=== PATIENT | female | born 1975 ===

== ENCOUNTER → 2020-02-11 09:24 | Outpatient (BNVA) | payer OTHER, SELFPAY | PROVIDERS: PCP Family Medicine; Referring Provider Family Medicine; Visit Provider Nurse Practitioner | DX: K21.9 Gastro-esophageal reflux disease without esophagitis (principal); K31.84 Gastroparesis; K58.0 Irritable bowel syndrome with diarrhea; Z79.899 Other long term (current) drug therapy | CPT/HCPCS: 99212 ==

== ENCOUNTER → 2020-03-02 14:11 | Outpatient (BNVA) | payer OTHER, SELFPAY | PROVIDERS: PCP Family Medicine; Visit Provider Internal Medicine | DX: G47.33 Obstructive sleep apnea (adult) (pediatric) (principal); E66.01 Morbid (severe) obesity due to excess calories; Z68.43 Body mass index [BMI] 50.0-59.9, adult; J30.9 Allergic rhinitis, unspecified; J98.4 Other disorders of lung; Z79.899 Other long term (current) drug therapy; Z99.89 Dependence on other enabling machines and devices | CPT/HCPCS: 99212 ==

== ENCOUNTER 2020-03-12 23:13 | Emergency (ER) | payer OTHER, SELFPAY ==
[2020-03-12 23:17] VITALS: BP 160/92; BP 162/98; PULSE 100; PULSE 85; RESP 20; TEMP 35.9; O2SAT 94; O2SAT 99; BMI 58.3
--- NOTE | 2020-03-13 00:18 | ED_ITS ---
HPI - Headache General Chief Complaint: Headache Stated Complaint: HEAD PAIN Time Seen by Provider: 03/13/20 00:05 Source: patient Mode of arrival: EMS Limitations: no limitations History of Present Illness HPI Narrative: patient comes to emergency room complaining of a headache. Patient states this started around 15:00. Patient has tried tendon all, she has not tried ibuprofen yet, states usually either 1 of them works for her but today she has had no relief from avad-css-ibjgoft medications. Patient also has a prescription for tramadol for chronic back pain, she took extra tablets with no relief. Patient states she has a diagnosis of migraines, however she does not take any prophylactic medications since her migraines are not frequent. MD elicited complaint: migraine Related Data Home Medications Medication Instructions Recorded Confirmed hydrocortisone 2.5 % topical cream 1 applic SC BID-QID PRN 02/10/20 02/10/20 with perineal applicator szqtnp-waegtlxw-cuzeelm 1 cap PO QID 02/10/20 02/10/20 24,000-76,000-120,000 unit capsule,delayed rel albuterol sulfate 2.5 mg INHALATION Q4-6H PRN 03/02/20 cetirizine 10 mg tablet 10 mg PO DAILY 03/02/20 cholecalciferol (vitamin D3) 50 50 mcg PO DAILY 03/02/20 mcg (2,000 unit) tablet duloxetine 30 mg capsule,delayed 30 mg PO QAM 03/02/20 release duloxetine 60 mg capsule,delayed 60 mg PO BEDTIME 03/02/20 release fluticasone propionate 50 0 mcg INTRANASAL 03/02/20 mcg/actuation nasal spray,suspension gabapentin 300 mg capsule 300 mg PO TID 03/02/20 gabapentin 600 mg tablet 600 mg PO QID 03/02/20 hydrochlorothiazide 25 mg tablet 25 mg PO QAM 03/02/20 levothyroxine 200 mcg tablet 200 mcg PO QAM 03/02/20 levothyroxine 50 mcg tablet 0 mcg PO 03/02/20 mirabegron 50 mg tablet,extended 50 mg PO QAM 03/02/20 release 24 hr montelukast 10 mg tablet 10 mg PO BEDTIME 03/02/20 peg [id number] 1 1 drp OPHTHALMIC (EYE) 03/02/20 %-0.2 %-0.2 % eye drops prazosin 2 mg capsule 4 mg PO BEDTIME 03/02/20 vortioxetine 10 mg tablet 10 mg PO QAM 03/02/20 Previous Rx's Medication Instructions Recorded imipramine HCl 10 mg tablet 20 mg PO BEDTIME 30 Days #60 tab 02/11/20 ondansetron HCl 4 mg tablet 4 mg PO BID-TID PRN 30 Days #60 tab 02/11/20 metoclopramide HCl 10 mg tablet 10 mg PO QID #120 tab 02/25/20 pantoprazole 40 mg tablet,delayed 40 mg PO BID 30 Days #60 tab 02/27/20 release dicyclomine 20 mg tablet 20 - 40 mg PO QID 30 Days #240 tab 03/08/20 loperamide 2 mg tablet 4 mg PO BID #120 tab 03/12/20 tptswyeaws-jwalhujnjvnnc-rerq 1 cap PO TID PRN #10 cap 03/13/20 [Fioricet] Allergies Allergy/AdvReac Type Severity Reaction Status Date / Time cefuroxime [From CEFTIN] Allergy Unknown HIVES Verified 03/02/20 14:32 Review of Systems Review of Systems: Constitutional : No Weight loss, No Fever, No Chills, No Night Sweats, No Fatigue, No Malaise ENT/Mouth : No Hearing loss, No Ear Pain, No Nasal Congestion, No Sinus Pain, No Hoarseness, No sore throat, No Rhinorrhea, No Swallowing Difficulty Eyes: No Eye Pain, No Swelling, No Redness, No Foreign Body, No Discharge, No Vision Changes Cardiovascular : No Chest Pain, No SOB, No Dyspnea on Exertion, No Orthopnea, No Edema, No Palpitations Respiratory : No Cough, No Sputum, No Wheezing, No Smoke Exposure, No Dyspnea Gastrointestinal : No Nausea, No Vomiting, No Diarrhea, No Constipation, No abdominal Pain, No Hematochezia, No Melena Genitourinary : no irregular bleeding, No Dysuria, No Urinary Frequency, No Hematuria, No Urinary Incontinence, No Urgency, No Flank Pain, No Urinary Flow Changes, No Hesitancy Musculoskeletal : No joint pain, No Myalgias, No Joint Swelling Skin : No Skin Lesions, No rash Neuro : No Weakness, No Numbness, No Paresthesias, No Loss of Consciousness, No Dizziness, Complaining of a frontal headache Psych : No Anxiety/Panic, No Depression, No SI/HI/AH/VH, No Social Issues, Heme/Lymph: No Bruising, No Bleeding,No Lymphadenopathy Endocrine : No Polyuria, No Polydipsia, No Temperature Intolerance [facility] Past Medical History Medical History Allergic rhinitis Arthritis Fibromyalgia Hypothyroid Interstitial cystitis Migraines Morbidly obese AISHWARYA on CPAP Restrictive lung disease Surgical History History of esophagogastroduodenoscopy (EGD) Hx of colonoscopy Family History Family History Father Alcoholism Mother Leukemia Maternal Aunt Breast cancer Sister Depression Vertigo Family/Other Heart problem Diabetes Cancer Social History Social History Alcohol intake: never Smoking Status: Never smoker Smoked in Last 30 Days: No Use of substances other than those prescribed or required for medical reasons: Yes Substance Use Type: Marijuana Substance Use Frequency: Occasionally Advance Directives: No Advance Directives Information Provided: No Physical Exam Vital Signs: Vital Signs: Last Vital Signs Temp 96.6 F L 03/12/20 23:17 Pulse 82 03/13/20 00:53 Resp 18 03/13/20 00:53 BP 154/103 H 03/13/20 00:53 Pulse Ox 99 03/13/20 00:53 Body Mass Index 58.3 Appearance: Alert. Oriented X3. No acute distress. Eyes: Pupils equal, round and reactive to light. no photophobia ENT: Pharynx normal. Neck: Normal inspection. Neck supple. No lymph nodes noted. No crepitus CVS: Normal heart rate and rhythm. Pulses normal. Normal S1 and S2 Respiratory: No respiratory distress. Breath sounds normal. No Wheezing. No rales Abdomen: Soft and nontender. No rigidity. No distention. good BS x4, morbid obesity Skin: Skin warm and dry. Normal skin color. Normal skin turgor. Extremities: No lower extremity edema. No lower extremity edema. No Laceratio ns. No Rash Neuro: Oriented X 3. No motor deficit. No sensory deficit. Moving all extermities. No slurred speech. Course Course Course Narrative: patient states that she feels much better now, headache is nearly gone. Patient playing on her phone, has no photophobia Discharge Plan Discharge Clinical Impression: Migraine Qualifiers: Migraine type: unspecified Status migrainosus presence: without status migrainosus Intractability: not intractable Qualified Code(s): G43.909 - Migraine, unspecified, not intractable, without status migrainosus Patient Disposition: Home, Self-Care Instructions: Migraine Headache (ED) Additional Instructions: Please follow-up with your primary care physician tomorrow. If you have any worsening or new symptoms, please return to the emergency room or call 911 Prescriptions: New xxyntnpank-vysvmwxjthcft-lcnw [Fioricet] 50-300-40 mg capsule 1 cap PO TID PRN (Reason: pain) Qty: 10 RF: 0 No Action metoclopramide HCl 10 mg tablet 10 mg PO QID Qty: 120 RF: 3 pantoprazole [Protonix] 40 mg tablet,delayed release (DR/EC) 40 mg PO BID 30 Days Qty: 60 RF: 1 dicyclomine 20 mg tablet 20 - 40 mg PO QID 30 Days Qty: 240 RF: 3 loperamide [Anti-Diarrheal (loperamide)] 2 mg tablet 4 mg PO BID Qty: 120 RF: 0 Creon 24,000-76,000 -120,000 unit capsule,delayed release(DR/EC) 1 cap PO QID RF: 0 hydrocortisone [Anusol-HC] 2.5 % cream with perineal applicator 1 applic SC BID-QID PRNRF: 0 ondansetron HCl [Zofran] 4 mg tablet 4 mg PO BID-TID PRN (Reason: nausea and vomiting) 30 Days Qty: 60 RF: 3 imipramine HCl 10 mg tablet 20 mg PO BEDTIME 30 Days Qty: 60 RF: 3 cholecalciferol (vitamin D3) 50 mcg (2,000 unit) tablet 50 mcg PO DAILY RF: 0 Myrbetriq 50 mg tablet extended release 24 hr 50 mg PO QAM RF: 0 duloxetine 60 mg capsule,delayed release(DR/EC) 60 mg PO BEDTIME RF: 0 duloxetine 30 mg capsule,delayed release(DR/EC) 30 mg PO QAM RF: 0 hydrochlorothiazide 25 mg tablet 25 mg PO QAM RF: 0 levothyroxine 200 mcg tablet 200 mcg PO QAM RF: 0 montelukast 10 mg tablet 10 mg PO BEDTIME RF: 0 gabapentin 300 mg capsule 300 mg PO TID RF: 0 levothyroxine 50 mcg tablet 0 mcg PO RF: 0 Trintellix 10 mg tablet 10 mg PO QAM RF: 0 fluticasone propionate 50 mcg/actuation spray,suspension 0 mcg intranasal RF: 0 cetirizine 10 mg tablet 10 mg PO DAILY RF: 0 albuterol sulfate 2.5 mg /3 mL (0.083 %) solution for nebulization 2.5 mg inhalation Q4-6H PRNRF: 0 gabapentin 600 mg tablet 600 mg PO QID RF: 0 Artificial Tears(nz-ebeo-mgvv) 1-0.2-0.2 % drops 1 drp ophthalmic (eye) RF: 0 prazosin 2 mg capsule 4 mg PO BEDTIME RF: 0
[2020-03-13] MEDS: Ketorolac Tromethamine 15 MG/ML VIAL IV (00:42)
[2020-03-13] MEDS: diphenhydrAMINE HCL 50 MG/ML VIAL IVPUSH (00:42)
[2020-03-13] MEDS: 0.9 % Sodium Chloride 1,000 ML 999 ML IVCONT (00:42)
[2020-03-13] MEDS: Metoclopramide HCl 10 MG/2 ML VIAL IVPUSH (00:42)
[2020-03-13 00:53] VITALS: BP 154/103; PULSE 82; RESP 18; O2SAT 99
[2020-03-13 01:28] VITALS: BP 126/72; PULSE 72; RESP 16
== END 2020-03-13 01:53 | disposition home or self-care (01) ==
LOC: HO.ED 03-13 00:35
PROVIDERS: Emergency Provider Emergency Medicine
DX: G43.909 Migraine, unspecified, not intractable, without status migrainosus (principal); Z79.899 Other long term (current) drug therapy
CPT/HCPCS: 96361; 96374; 96375; 99284; J1200; J1885; J2765

== ENCOUNTER → 2020-03-17 16:02 | Outpatient (BNVA) | payer OTHER, SELFPAY | PROVIDERS: PCP Family Medicine; Referring Provider Family Medicine; Visit Provider Anesthesiology | DX: Z76.89 Persons encountering health services in other specified circumstances (principal) ==

== ENCOUNTER → 2020-04-08 14:19 | Outpatient (BNVA) | payer OTHER, SELFPAY | PROVIDERS: PCP Family Medicine; Visit Provider Nurse Practitioner | DX: Z13.89 Encounter for screening for other disorder (principal) | CPT/HCPCS: Q3014 ==

== ENCOUNTER → 2020-04-14 16:50 | Outpatient (BNVA) | payer OTHER, SELFPAY | PROVIDERS: PCP Family Medicine; Visit Provider Anesthesiology | DX: E66.01 Morbid (severe) obesity due to excess calories (principal); G47.33 Obstructive sleep apnea (adult) (pediatric); M47.16 Other spondylosis with myelopathy, lumbar region; M51.36 Other intervertebral disc degeneration, lumbar region; G89.4 Chronic pain syndrome; M48.061 Spinal stenosis, lumbar region without neurogenic claudication | CPT/HCPCS: Q3014 ==

== ENCOUNTER → 2020-05-14 14:22 | Outpatient (BNVA) | payer OTHER, SELFPAY | PROVIDERS: PCP Family Medicine; Visit Provider Nurse Practitioner ==

== ENCOUNTER → 2020-06-02 15:46 | Outpatient (BNVA) | payer OTHER, SELFPAY | PROVIDERS: PCP Family Medicine; Visit Provider Anesthesiology | DX: E66.01 Morbid (severe) obesity due to excess calories (principal); G47.33 Obstructive sleep apnea (adult) (pediatric); M47.16 Other spondylosis with myelopathy, lumbar region; M51.36 Other intervertebral disc degeneration, lumbar region; G89.4 Chronic pain syndrome; M48.061 Spinal stenosis, lumbar region without neurogenic claudication | CPT/HCPCS: 99212 ==

== ENCOUNTER 2020-09-28 06:19 | Outpatient (REF) | payer OTHER, SELFPAY ==
--- NOTE | ~2020-09-28 | FL_ITS ---
EXAMINATION: XR FLUOROSCOPY WITH IMAGES CLINICAL INFORMATION: Intervertebral disc degeneration. COMPARISON: None. TECHNIQUE: Fluoroscopy performed by Livier Walker NP. Fluoroscopy time: 1.7 minutes DAP: 40.8 Gycm2 Images: 9 FINDINGS: There are bilateral needles positioned adjacent to pedicles at S1, L5, L4 vertebrae for pain management. FL/FL guidance in treatment room IMPRESSION: Fluoroscopy guidance was provided to Livier Walker during spinal procedure.
== END 2020-09-28 06:20 | disposition home or self-care (01) ==
LOC: HO.RADIR 06:19
PROVIDERS: Visit Provider Anesthesiology
DX: M51.36 Other intervertebral disc degeneration, lumbar region (principal); M48.061 Spinal stenosis, lumbar region without neurogenic claudication; G89.4 Chronic pain syndrome
CPT/HCPCS: 64493; 64494; 64495; J3300; Q9967

== ENCOUNTER 2020-10-05 12:33 | Outpatient (REF) | payer OTHER, SELFPAY ==
[2020-10-05 14:38] LABS: MANUAL DIFF FLAG NO
[2020-10-05 14:42] LABS: Basophils Percent Auto 0.2 % (0-2); Eosinophils Percent Auto 0.2 % (0-4); Hematocrit 45.6 % (37-47); Hemoglobin 15.3 g/dl (12.0-16.0); Imm Gran Abs Auto 0.09 X10*3/uL (0.00-0.03); Imm Gran Pct Auto 0.5 % (0.0-0.4); Lymphocytes Absolute Auto 2.6 X10*3/uL (1.2-4.9); Lymphocytes Percent Auto 14.7 % (20-40); Mean Corpuscular HGB Conc 33.6 g/dl (31.0-35.0); Mean Corpuscular Hemoglobin 30.5 pg (27.0-33.0); Mean Platelet Volume 9.4 fL (9.4-12.3); Monocytes Absolute Auto 0.8 X10*3/uL (0.1-1.2); Monocytes Percent Auto 4.3 % (2-11); Neutrophils Percent Auto 80.1 % (45-73); Platelet Count 358 X10*3/uL (160-400); Red Blood Count 5.01 X10*6/uL (4.20-5.50); White Blood Count 17.5 X10*3/uL (4.8-10.8)
[2020-10-05 14:42] LABS: Appearance Urine HAZY; Color Urine YELLOW; Glucose Urine UA NEG (NEG); Leukocyte Esterase Urine NEG (NEG); Nitrite Urine NEG (NEG); Specific Gravity - Urine >= 1.030 (1.005-1.025); Urine Blood NEG (NEG); Urine Ketones NEG (NEG); Urine Protein TRACE MG/DL (NEG-TRACE)
[2020-10-05 15:15] LABS: Alanine Aminotransferase 13 U/L (0-31); Albumin Level 4.1 g/dL (3.5-5.0); Alkaline Phosphatase 108 U/L (39-117); Anion Gap 14 (12-20); Aspartate Amino Transferase 10 U/L (5-31); Bilirubin Total 0.4 mg/dL (0.0-1.0); Blood Urea Nitrogen 16 mg/dL (9-16); C Reactive Protein 0.73 mg/dL (< or = 0.50); Calcium 9.4 mg/dL (8.4-10.2); Carbon Dioxide 25 mmol/L (22-29); Chloride 102 mmol/L (96-108); Estimated Glomerular Filt Rate > 60; Glucose Random 242 mg/dL (60-115); Potassium 4.6 mmol/L (3.3-5.1); Sodium 136 mmol/L (135-145); Total Protein 7.5 g/dL (6.5-8.0)
[2020-10-05 15:36] LABS: TSH reflex Free T4 3.24 uIU/mL (0.32-4.0)
[2020-10-08 21:22] LABS: Transglutaminase Ab IgG 7 U/mL; Transglutaminase IgA 1 U/mL
[2020-10-13 16:36] LABS: Gliadin Deamidated IgA Ab 7 Units; Gliadin Deamidated IgG Ab 3 Units
== END 2020-10-05 12:34 | disposition home or self-care (01) ==
LOC: HO.LAB 12:33
PROVIDERS: PCP Family Medicine; Referring Provider Family Medicine; Visit Provider Nurse Practitioner
DX: K21.9 Gastro-esophageal reflux disease without esophagitis (principal); K31.84 Gastroparesis; K58.0 Irritable bowel syndrome with diarrhea; R11.2 Nausea with vomiting, unspecified; R19.7 Diarrhea, unspecified
CPT/HCPCS: 36415; 80053; 81003; 83516; 84443; 85025; 86140; 99212

== ENCOUNTER 2020-10-08 13:57 | Outpatient (REF) | payer OTHER, SELFPAY | END 2020-10-08 13:58 | disposition home or self-care (01) | LOC: CF 13:57 | PROVIDERS: Visit Provider Nurse Practitioner | DX: N30.10 Interstitial cystitis (chronic) without hematuria (principal); N39.41 Urge incontinence; R35.1 Nocturia; R11.2 Nausea with vomiting, unspecified; R19.7 Diarrhea, unspecified; Z79.899 Other long term (current) drug therapy | CPT/HCPCS: 51798; 87045; 87046; 87338; 99212 ==

== ENCOUNTER → 2020-10-18 14:08 | Outpatient (BNVA) | payer OTHER, SELFPAY | PROVIDERS: PCP Family Medicine; Visit Provider Nurse Practitioner | DX: Z13.89 Encounter for screening for other disorder (principal) | CPT/HCPCS: Q3014 ==

== ENCOUNTER 2020-10-29 15:12 | Outpatient (REF) | payer OTHER, SELFPAY ==
--- NOTE | ~2020-10-29 | MM_ITS ---
EXAMINATION: MM SCREENING DIGITAL BREAST TOMOSYNTHESIS, BILATERAL CLINICAL INFORMATION: Screening. Asymptomatic. The lifetime risk of breast cancer based on the Tyrer-Cuzick Model is 12%. COMPARISON: Mammography: 08/08/2018, 07/04/2018, 03/20/2017 TECHNIQUE: Digital breast tomosynthesis is performed in both the craniocaudal and mediolateral oblique views along with computer-aided detection (CAD). Synthesized 2D images are generated from the tomosynthesis. Additional bilateral CC views are provided. FINDINGS: There are scattered areas of fibroglandular density (ACR BI-RADS breast composition Category b). There are no significant masses, abnormal calcifications, or other abnormalities. No developing density. No significant changes from prior studies. The axilla and skin contours are unremarkable. MM/MM tomosynthesis screening BI IMPRESSION: No mammographic evidence of malignancy. ASSESSMENT: BI-RADS 1: Negative RECOMMENDATION: Routine annual mammography screening. This patient's information was entered into a reminder system with a target due date for their next mammogram.
== END 2020-10-29 15:13 | disposition home or self-care (01) ==
LOC: HO.MAMMO 15:12
PROVIDERS: PCP Family Medicine; Visit Provider Family Medicine
DX: Z12.31 Encounter for screening mammogram for malignant neoplasm of breast (principal)
CPT/HCPCS: 77063; 77067

== ENCOUNTER → 2020-11-04 14:02 | Outpatient (BNVA) | payer OTHER, SELFPAY | PROVIDERS: Visit Provider Nurse Practitioner | DX: R19.7 Diarrhea, unspecified (principal); K31.84 Gastroparesis; K58.0 Irritable bowel syndrome with diarrhea; K21.9 Gastro-esophageal reflux disease without esophagitis; R11.2 Nausea with vomiting, unspecified; E66.01 Morbid (severe) obesity due to excess calories; G89.4 Chronic pain syndrome | CPT/HCPCS: Q3014 ==

== ENCOUNTER → 2020-11-10 15:23 | Outpatient (BNVA) | payer OTHER, SELFPAY | PROVIDERS: Visit Provider Anesthesiology | DX: M48.061 Spinal stenosis, lumbar region without neurogenic claudication (principal); G89.4 Chronic pain syndrome; E66.01 Morbid (severe) obesity due to excess calories; G47.33 Obstructive sleep apnea (adult) (pediatric); M47.16 Other spondylosis with myelopathy, lumbar region; M51.36 Other intervertebral disc degeneration, lumbar region | CPT/HCPCS: Q3014 ==

== ENCOUNTER 2020-12-17 10:47 | Day surgery (SDC) | payer OTHER, SELFPAY ==
--- NOTE | 2020-12-16 12:27 | HO.ANESPROP2 ---
Documented by User: Kelly Leon NP 12/16/20 12:29 HPI - Anesthesia Eval Consult details Narrative: 45yo F for Bilateral Medial Branch Block PMFSH Active Problems Active Problems: All Active Problems (Updated 10/08/20 @ 15:05 by Wilfred Simental MD) Nocturia more than twice per night (Acute) Spinal stenosis of lumbar region (Acute) Chronic pain syndrome (Acute) Disc degeneration, lumbar (Acute) Spondylosis, lumbar, with myelopathy (Acute) Obstructive sleep apnea (Acute) Morbid obesity due to excess calories (Acute) Diarrhea (Acute) GERD (gastroesophageal reflux disease) (Acute) Gastroparesis (Acute) Irritable bowel syndrome with diarrhea (Acute) Nausea and vomiting (Acute) Restrictive lung disease (Acute) Allergic rhinitis (Acute) AISHWARYA on CPAP (Acute) Morbidly obese (Acute) Past Medical History Medical History Allergic rhinitis Arthritis Chronic pain syndrome Disc degeneration, lumbar Fibromyalgia Hypothyroid Interstitial cystitis Migraines Morbid obesity due to excess calories Morbidly obese Obstructive sleep apnea AISHWARYA on CPAP Restrictive lung disease Spinal stenosis of lumbar region Spondylosis, lumbar, with myelopathy Family History Family History Father Alcoholism Mother Leukemia Maternal Aunt Breast cancer Sister Depression Vertigo Family/Other Heart problem Diabetes Cancer Surgical History Surgical History History of esophagogastroduodenoscopy (EGD) Hx of colonoscopy Social History Social History Household Members: Family Household Members Other:: sister Alcohol intake: never Patient Tobacco Use Status: Never used Tobacco Use of substances other than those prescribed or required for medical reasons: Yes Substance Use Type: Marijuana Substance Use Frequency: Occasionally Are you DNR?: No Advance Directives: No Advance Directives Information Provided: Yes Current occupational status: disabled Meds Allergies Allergy/AdvReac Type Severity Reaction Status Date / Time cefuroxime [From CEFTIN] Allergy Unknown HIVES Verified 12/17/20 11:24 Home Medications Medication Instructions Recorded Confirmed Last Taken Type hydrocortisone 2.5 % topical cream 1 applic HI BID-QID PRN 02/10/20 06/02/20 Unknown History with perineal applicator (Anusol-HC) albuterol sulfate 2.5 mg INHALATION Q4-6H PRN 03/02/20 06/02/20 Unknown History cetirizine 10 mg tablet 10 mg PO DAILY 03/02/20 06/02/20 Unknown History cholecalciferol (vitamin D3) 50 50 mcg PO DAILY 03/02/20 06/02/20 Unknown History mcg (2,000 unit) tablet duloxetine 30 mg capsule,delayed 30 mg PO QAM 03/02/20 06/02/20 Unknown History release duloxetine 60 mg capsule,delayed 60 mg PO BEDTIME 03/02/20 06/02/20 Unknown History release fluticasone propionate 50 0 mcg INTRANASAL 03/02/20 06/02/20 Unknown History mcg/actuation nasal spray,suspension hydrochlorothiazide 25 mg tablet 25 mg PO QAM 03/02/20 06/02/20 Unknown History levothyroxine 200 mcg tablet 200 mcg PO QAM 03/02/20 06/02/20 Unknown History mirabegron 50 mg tablet,extended 50 mg PO QAM 03/02/20 06/02/20 Unknown History release 24 hr montelukast 10 mg tablet 10 mg PO BEDTIME 03/02/20 06/02/20 Unknown History peg [id number]-nnoetepy 1 1 drp OPHTHALMIC (EYE) 03/02/20 06/02/20 Unknown History %-0.2 %-0.2 % eye drops prazosin 2 mg capsule 4 mg PO BEDTIME 03/02/20 06/02/20 Unknown History vortioxetine 10 mg tablet 10 mg PO QAM 03/02/20 06/02/20 Unknown History sumatriptan succinate 50 mg tablet 0 mg PO 06/02/20 06/02/20 Unknown History escitalopram oxalate 20 mg tablet 20 mg PO DAILY 10/05/20 Unknown History ibuprofen 800 mg tablet 800 mg PO TID 10/05/20 Unknown History levothyroxine 50 mcg tablet 50 mcg PO DAILY 10/05/20 Unknown History oxybutynin chloride 10 mg 0 mg PO 10/05/20 Unknown History tablet,extended release 24 hr verapamil 120 mg 24 hr 120 mg PO DAILY 10/05/20 Unknown History capsule,extended release albuterol sulfate 90 mcg/actuation 0 mcg INHALATION 10/08/20 Unknown History aerosol inhaler nnfcmfnddi-xtkkrysgzkeim-rllltlac 1 tab PO Q6H PRN 10/08/20 Unknown History 50 mg-325 mg-40 mg tablet clonazepam 0.5 mg tablet 0.5 mg PO BID PRN 10/08/20 Unknown History cyclobenzaprine 10 mg tablet 10 mg PO BEDTIME PRN 10/08/20 Unknown History losartan 50 mg tablet 75 mg PO DAILY 10/08/20 Unknown History polyvinyl alcohol 1.4 % eye drops 1 drp OPHTHALMIC (EYE) QID 10/08/20 Unknown History tramadol 50 mg tablet 50 mg PO Q6H PRN 10/08/20 Unknown History zolpidem 10 mg tablet 10 mg PO BEDTIME PRN 10/08/20 Unknown History furosemide 20 mg tablet 20 mg PO . with evening meal tab 10/18/20 Unknown History Exam Exam Date and Time: December 16, 2020 1227 Pertinent Lab Results Pertinent Lab Results: Laboratory Tests 10/05/20 10/05/20 14:08 14:08 WBC 17.5 H Hgb 15.3 Hct 45.6 Plt Count 358 Sodium 136 Potassium 4.6 Chloride 102 Carbon Dioxide 25 BUN 16 Creatinine 0.96 Assessment and Plan Assessment Anesthesia Assessment: Chart Reviewed Documented by User: Elaina Aguirre MD 12/17/20 14:30 [facility] Active Problems Active Problems: All Active Problems (Updated 10/08/20 @ 15:05 by Wilfred Simental MD) Nocturia more than twice per night (Acute) Spinal stenosis of lumbar region (Acute) Chronic pain syndrome (Acute) Disc degeneration, lumbar (Acute) Spondylosis, lumbar, with myelopathy (Acute) Obstructive sleep apnea (Acute) Morbid obesity due to excess calories (Acute) Diarrhea (Acute) GERD (gastroesophageal reflux disease) (Acute) Gastroparesis (Acute) Irritable bowel syndrome with diarrhea (Acute) Nausea and vomiting (Acute) Restrictive lung disease (Acute) Allergic rhinitis (Acute) AISHWARYA on CPAP (Acute)On bipap Morbidly obese (Acute) Past Medical History Medical History Allergic rhinitis Arthritis Chronic pain syndrome Disc degeneration, lumbar Fibromyalgia Hypothyroid Interstitial cystitis Migraines Morbid obesity due to excess calories Morbidly obese Obstructive sleep apnea AISHWARYA on CPAP Restrictive lung disease Spinal stenosis of lumbar region Spondylosis, lumbar, with myelopathy Family History Family History Father Alcoholism Mother Leukemia Maternal Aunt Breast cancer Sister Depression Vertigo Family/Other Heart problem Diabetes Cancer Family history of problems with anesthesia: No Surgical History Surgical History History of esophagogastroduodenoscopy (EGD) Hx of colonoscopy History of Problems with Anesthesia: No Social History Social History Household Members: Family Household Members Other:: sister Alcohol intake: never Patient Tobacco Use Status: Never used Tobacco Use of substances other than those prescribed or required for medical reasons: Yes Substance Use Type: Marijuana Substance Use Frequency: Occasionally Are you DNR?: No Advance Directives: No Advance Directives Information Provided: Yes Current occupational status: disabled Meds Allergies Allergy/AdvReac Type Severity Reaction Status Date / Time cefuroxime [From CEFTIN] Allergy Unknown HIVES Verified 12/17/20 11:24 Home Medications Medication Instructions Recorded Confirmed Last Taken Type hydrocortisone 2.5 % topical cream 1 applic HI BID-QID PRN 02/10/20 06/02/20 Unknown History with perineal applicator (Anusol-HC) albuterol sulfate 2.5 mg INHALATION Q4-6H PRN 03/02/20 06/02/20 Unknown History cetirizine 10 mg tablet 10 mg PO DAILY 03/02/20 06/02/20 Unknown History cholecalciferol (vitamin D3) 50 50 mcg PO DAILY 03/02/20 06/02/20 Unknown History mcg (2,000 unit) tablet duloxetine 30 mg capsule,delayed 30 mg PO QAM 03/02/20 06/02/20 Unknown History release duloxetine 60 mg capsule,delayed 60 mg PO BEDTIME 03/02/20 06/02/20 Unknown History release fluticasone propionate 50 0 mcg INTRANASAL 03/02/20 06/02/20 Unknown History mcg/actuation nasal spray,suspension hydrochlorothiazide 25 mg tablet 25 mg PO QAM 03/02/20 06/02/20 Unknown History levothyroxine 200 mcg tablet 200 mcg PO QAM 03/02/20 06/02/20 Unknown History mirabegron 50 mg tablet,extended 50 mg PO QAM 03/02/20 06/02/20 Unknown History release 24 hr montelukast 10 mg tablet 10 mg PO BEDTIME 03/02/20 06/02/20 Unknown History peg [id number] 1 1 drp OPHTHALMIC (EYE) 03/02/20 06/02/20 Unknown History %-0.2 %-0.2 % eye drops prazosin 2 mg capsule 4 mg PO BEDTIME 03/02/20 06/02/20 Unknown History vortioxetine 10 mg tablet 10 mg PO QAM 03/02/20 06/02/20 Unknown History sumatriptan succinate 50 mg tablet 0 mg PO 06/02/20 06/02/20 Unknown History escitalopram oxalate 20 mg tablet 20 mg PO DAILY 10/05/20 Unknown History ibuprofen 800 mg tablet 800 mg PO TID 10/05/20 Unknown History levothyroxine 50 mcg tablet 50 mcg PO DAILY 10/05/20 Unknown History oxybutynin chloride 10 mg 0 mg PO 10/05/20 Unknown History tablet,extended release 24 hr verapamil 120 mg 24 hr 120 mg PO DAILY 10/05/20 Unknown History capsule,extended release albuterol sulfate 90 mcg/actuation 0 mcg INHALATION 10/08/20 Unknown History aerosol inhaler ywkochucfj-wjuewxhpmstgo-xtgdazjo 1 tab PO Q6H PRN 10/08/20 Unknown History 50 mg-325 mg-40 mg tablet clonazepam 0.5 mg tablet 0.5 mg PO BID PRN 10/08/20 Unknown History cyclobenzaprine 10 mg tablet 10 mg PO BEDTIME PRN 10/08/20 Unknown History losartan 50 mg tablet 75 mg PO DAILY 10/08/20 Unknown History polyvinyl alcohol 1.4 % eye drops 1 drp OPHTHALMIC (EYE) QID 10/08/20 Unknown History tramadol 50 mg tablet 50 mg PO Q6H PRN 10/08/20 Unknown History zolpidem 10 mg tablet 10 mg PO BEDTIME PRN 10/08/20 Unknown History furosemide 20 mg tablet 20 mg PO . with evening meal tab 07/12/21 Unknown History Exam Height,Weight and Vital Signs: Height 5 ft 1 in Weight 138.346 kg Vital Signs Temp Pulse Resp BP Pulse Ox 12/17/20 12:00 98.2 F 90 16 138/75 96 Pertinent Lab Results Pertinent Lab Results: Laboratory Tests 10/05/20 10/05/20 14:08 14:08 WBC 17.5 H Hgb 15.3 Hct 45.6 Plt Count 358 Sodium 136 Potassium 4.6 Chloride 102 Carbon Dioxide 25 BUN 16 Creatinine 0.96 Lab Results 12/17/20 Range/Units 11:25 Urine Test NEGATIVE (NEGATIVE) Airway Mallampati Class: III TM Dist: >3cm Neck ROM: Full Heart: RRR Lungs: CTAB diminished Assessment and Plan Assessment Anesthesia Assessment: Anesthesia Plan Discussed Final Anesthetic Review Family History of Problems with Anesthesia: No History of Problems with Anesthesia: No NPO: Yes ASA Class: III Final Preanesthetic Review: No Changes in Pt Med Stat, Meds/Allgs Chart Reviewed, Consent Obtained/Reviewed and Anes Risks/Benef Reviewed Patient Risk: Intermediate Procedure Risk: Low Assessment/Block/Sedation in SS: Assess/Block/Sedation-SS Anesthetic Plan Anesthetic Plan: MAC: Disposition: Standard PACU
--- NOTE | ~2020-12-17 | FL_ITS ---
EXAMINATION: XR FLUOROSCOPY WITH IMAGES CLINICAL INFORMATION: Medial branch block COMPARISON: None. TECHNIQUE: Fluoroscopy performed by Dr. Jayce Wright. Fluoroscopy time: 1.3 minutes DAP: 21.3 Gycm2 Images: 8 FINDINGS: 8 fluoroscopic spot images and a dose report were obtained. These demonstrate fluoroscopic guidance for placement of needles an injection of the contrast in the region of the lumbar spine bilaterally. FL/FL guidance in OR IMPRESSION: Intraoperative fluoroscopic guidance as described above. Please refer to procedural note for details.
[2020-12-17 11:32] VITALS: BMI 57.6
[2020-12-17 11:56] LABS: UPreg QC Valid YES; Urine Pregnancy NEGATIVE (NEGATIVE)
[2020-12-17 12:00] VITALS: BP 138/75; PULSE 90; RESP 16; TEMP 36.8; O2SAT 96
[2020-12-17] MEDS: Lactated Ringers 1,000 ML 100 ML IVCONT (12:07)
--- NOTE | 2020-12-17 14:07 | MHC.SHP ---
Pre-Procedural Eval Section A Date of Service: 12/17/20 The patient is an INPATIENT: No Changes since office visit: Yes Patient answered all questions The History & Physical has been completed within 30 days and I have reviewed it.: No Section B Chief Complaint: spondylosis Details of Present Illness: as above Relevant Family History (Specify if Yes): No Relevant Social History: None Present Medications: see Short Stay Collaborative assessment Medical History: Significant History (severe morbid obesity) History of Previous Operations: No relevant previous surgery Allergies: Allergies Allergy/AdvReac Type Severity Reaction Status Date / Time cefuroxime [From CEFTIN] Allergy Unknown HIVES Verified 12/17/20 11:24 Review of Systems Sugical H&P ROS: Negative: Cardiovascular, Respiratory, Neurological, Psychiatric, Hem-Onc, Allergic/Immunologic, Gastrointestinal, Genitourinary, Musculoskeletal, Integumentary, Endocrine and Eyes/Ears/Nose/Throat and Yes, Specify: Constitution (morbid obesity) Exam Surgical H&P Exam: Normal: HEENT, Normal: Heart, Normal: Lungs, Normal: Extremities, Normal: Skin and Normal: Neurological and Significant Findings: Abdomen (enlarged 2 to fat) Plan Diagnosis/Plan: Unchanged I have reviewed the history and physical and performed a pertinent physical examination on my patient. No changes have occurred unless specified.
--- NOTE | 2020-12-17 14:22 | P.OP_ITS ---
Operative Note Operative Note Date of Service: 12/17/20 Narrative: Shereen is very pleasant 45 years old female who came today the operating room for the bilateral L2-L3 L4 does ramus L5 medial branch block therapeutic injection for the treatment of spondylosis of lumbar spine.? The martha ure of diagnostic injection was reiterated to the patient while explaining informed consent.? After obtaining informed consent patient was brought to the operating room, SHE was positioned prone on operating table, [place] [employer] monitors were applied and patient was minimally sedated.? ?Time-out was performed delineating correct site, side, the nature of the procedure, patient's allergy, preoperative antibiotic if needed.? All operating room staff was participating in OR time-out procedure. Her lower back and upper buttocks were prepped with ChloraPrep and draped with sterile utility towels.? C-arm was brought of the operating field and picture of the cervical spine was demonstrated on the screen.? The point of interests were delineated as confluent of the superior articular processes of L3-L4 L5 vertebra bilaterally with corresponding left and right transverse processes. Also the were delineated as confluence of superior articular process of S1 bilaterally w ith bilateral sacral alae. ? The projection of the point of interest to the skin on the back was injected sequentially with small amount of lidocaine 2% 1- 2 cc.? After that 22 gauge 5 inch needle was driven to the point of interests 1st on the right and then on the left side.? When needles gently contacted the bones small amount of the contrast was injected demonstrating no intravascular and no intrathecal uptake of the contrast.? After that treatment solution of the bupivacaine 0.5% mixed with Kenalog was injected into each needle position.? Total dose of Kenalog was 60 mg. Upon completion of the injections needles were removed sterile Band-Aids were applied.? The patient tolerated procedure well she was taking outside of the operating room to recovery room where she recovered uneventfully.? She went home without immediate complications.
[2020-12-17 15:04] VITALS: BP 150/88; PULSE 73; RESP 20; TEMP 36.8; O2SAT 94
--- NOTE | 2020-12-17 15:04 | P.BOP_ITS ---
Brief Operative Note Date of Service: 12/17/20 Pre-op diagnosis: Spondylosis lumbar Procedure: L2-L3 L4 does ramus L5 medial branch block bilateral therapeutic Surgeon: Jayce Wright MD Anesthesia: MAC Was an Assembler Dc Field Ring used for this Procedure?: No Estimated blood loss (mL): 5 Pathology: none sent Condition: stable Disposition: PACU
[2020-12-17 15:19] VITALS: BP 134/88; PULSE 67; RESP 18; O2SAT 95
[2020-12-17 15:34] VITALS: BP 132/78; PULSE 66; RESP 18; TEMP 36.6; O2SAT 99
== END 2020-12-17 15:45 | disposition home or self-care (01) ==
PROVIDERS: Nurse Practitioner; PCP Family Medicine; Visit Provider Anesthesiology
PROC: (CPT 64493; principal; 2020-12-17 12:20)
DX: M47.16 Other spondylosis with myelopathy, lumbar region (principal); M48.061 Spinal stenosis, lumbar region without neurogenic claudication; M51.36 Other intervertebral disc degeneration, lumbar region; G89.4 Chronic pain syndrome; E66.01 Morbid (severe) obesity due to excess calories
CPT/HCPCS: 64493; 64494; 81025; J2250; J3300; Q9967

== ENCOUNTER → 2020-12-30 12:41 | Outpatient (BNVA) | payer OTHER, SELFPAY | PROVIDERS: PCP Family Medicine | DX: N30.10 Interstitial cystitis (chronic) without hematuria (principal); R35.1 Nocturia | CPT/HCPCS: 51798; 99212 ==

== ENCOUNTER → 2021-01-24 11:12 | Outpatient (BNVA) | payer OTHER, SELFPAY | PROVIDERS: Visit Provider Anesthesiology | DX: Z13.89 Encounter for screening for other disorder (principal) | CPT/HCPCS: Q3014 ==

== ENCOUNTER → 2021-01-28 16:02 | Outpatient (BNVA) | payer OTHER, SELFPAY | PROVIDERS: PCP Family Medicine; Visit Provider Nurse Practitioner | CPT/HCPCS: Q3014 ==

== ENCOUNTER → 2021-03-07 11:28 | Outpatient (BNVA) | payer OTHER, SELFPAY | PROVIDERS: PCP Family Medicine; Visit Provider Anesthesiology | DX: G89.4 Chronic pain syndrome (principal); M48.061 Spinal stenosis, lumbar region without neurogenic claudication; M47.16 Other spondylosis with myelopathy, lumbar region; M51.36 Other intervertebral disc degeneration, lumbar region; E66.01 Morbid (severe) obesity due to excess calories; G47.33 Obstructive sleep apnea (adult) (pediatric) | CPT/HCPCS: 99212 ==

== ENCOUNTER 2021-03-29 12:32 | Outpatient (REF) | payer OTHER, SELFPAY ==
--- NOTE | ~2021-03-29 | XR_ITS ---
EXAMINATION: XR FOREARM, LEFT CLINICAL INFORMATION: Left forearm pain. COMPARISON: None TECHNIQUE: AP and lateral views of the left forearm were obtained. FINDINGS: There is an old healed distal radial fracture as well as a nonunited ulnar styloid fragment. No acute fractures are identified. No focal soft tissue abnormalities are identified. Elbow joint is normal. No elbow joint effusion. XR/XR forearm LT 2V IMPRESSION: No acute osseous or appreciable soft tissue abnormalities of the forearm. Old healed distal radial fracture and nonunited ulnar styloid fracture.
== END 2021-03-29 12:33 | disposition home or self-care (01) ==
LOC: HO.HOSX 12:32
PROVIDERS: Visit Provider Orthopaedic Surgery
DX: M79.632 Pain in left forearm (principal); M77.12 Lateral epicondylitis, left elbow
CPT/HCPCS: 73090; 99202; J1100

== ENCOUNTER 2021-04-29 11:46 | Day surgery (SDC) | payer OTHER, SELFPAY ==
--- NOTE | 2021-04-28 13:30 | HO.ANESPROP2 ---
Documented by User: Kelly Leon NP 04/28/21 13:32 HPI - Anesthesia Eval Consult details Narrative: 45yo F for Bilateral Medial Branch Block s/p Medial Branch Block 12/2020 with MAC PMFSH Active Problems Active Problems: All Active Problems (Updated 03/29/21 @ 14:12 by Saloni Morgan MD) Left lateral epicondylitis (Acute) Left forearm pain (Acute) Epicondylitis, lateral (Acute) Interstitial cystitis (Acute) Nocturia more than twice per night (Acute) Spinal stenosis of lumbar region (Acute) Chronic pain syndrome (Acute) Disc degeneration, lumbar (Acute) Spondylosis, lumbar, with myelopathy (Acute) Obstructive sleep apnea (Acute) Morbid obesity due to excess calories (Acute) Diarrhea (Acute) GERD (gastroesophageal reflux disease) (Acute) Gastroparesis (Acute) Irritable bowel syndrome with diarrhea (Acute) Nausea and vomiting (Acute) Restrictive lung disease (Acute) Allergic rhinitis (Acute) AISHWARYA on CPAP (Acute) Morbidly obese (Acute) Past Medical History Medical History Allergic rhinitis Arthritis Chronic pain syndrome Disc degeneration, lumbar Epicondylitis, lateral Fibromyalgia Hypothyroid Interstitial cystitis Interstitial cystitis Migraines Morbid obesity due to excess calories Morbidly obese Obstructive sleep apnea AISHWARYA on CPAP Restrictive lung disease Spinal stenosis of lumbar region Spondylosis, lumbar, with myelopathy Family History Family History Father Alcoholism Mother Leukemia Maternal Aunt Breast cancer Sister Depression Vertigo Family/Other Heart problem Diabetes Cancer Family history of problems with anesthesia: No Surgical History Surgical History History of esophagogastroduodenoscopy (EGD) Hx of colonoscopy History of Problems with Anesthesia: No Social History Social History Household Members: Family Household Members Other:: sister Alcohol intake: never Patient Tobacco Use Status: Never used Tobacco Second Hand Smoke Exposure: No Use of substances other than those prescribed or required for medical reasons: No Substance Use Type: Marijuana Are you DNR?: No Advance Directives: No Advance Directives Information Provided: Yes Advance Directives on File: No Current occupational status: disabled 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 Meds Allergies Allergy/AdvReac Type Severity Reaction Status Date / Time cefuroxime [From CEFTIN] Allergy Unknown HIVES Verified 03/29/21 13:43 Home Medications Medication Instructions Recorded Confirmed Last Taken Type hydrocortisone 2.5 % topical cream 1 applic [place] BID-QID PRN 02/10/20 06/02/20 Unknown History with perineal applicator (Anusol-HC) albuterol sulfate 2.5 mg INHALATION Q4-6H PRN 03/02/20 06/02/20 Unknown History cetirizine 10 mg tablet 10 mg PO DAILY 03/02/20 06/02/20 Unknown History cholecalciferol (vitamin D3) 50 50 mcg PO DAILY 03/02/20 06/02/20 Unknown History mcg (2,000 unit) tablet duloxetine 30 mg capsule,delayed 30 mg PO QAM 03/02/20 06/02/20 Unknown History release duloxetine 60 mg capsule,delayed 60 mg PO BEDTIME 03/02/20 06/02/20 Unknown History release fluticasone propionate 50 0 mcg INTRANASAL 03/02/20 06/02/20 Unknown History mcg/actuation nasal spray,suspension hydrochlorothiazide 25 mg tablet 25 mg PO QAM 03/02/20 06/02/20 Unknown History levothyroxine 200 mcg tablet 200 mcg PO QAM 03/02/20 06/02/20 Unknown History mirabegron 50 mg tablet,extended 50 mg PO QAM 03/02/20 06/02/20 Unknown History release 24 hr montelukast 10 mg tablet 10 mg PO BEDTIME 03/02/20 06/02/20 Unknown History peg [id number] 1 1 drp OPHTHALMIC (EYE) 03/02/20 06/02/20 Unknown History %-0.2 %-0.2 % eye drops vortioxetine 10 mg tablet 10 mg PO QAM 03/02/20 06/02/20 Unknown History sumatriptan succinate 50 mg tablet 0 mg PO 06/02/20 06/02/20 Unknown History escitalopram oxalate 20 mg tablet 20 mg PO DAILY 10/05/20 Unknown History ibuprofen 800 mg tablet 800 mg PO TID 10/05/20 Unknown History levothyroxine 50 mcg tablet 50 mcg PO DAILY 10/05/20 Unknown History verapamil 120 mg 24 hr 120 mg PO DAILY 10/05/20 Unknown History capsule,extended release albuterol sulfate 90 mcg/actuation 0 mcg INHALATION 10/08/20 Unknown History aerosol inhaler ppxhtnpqyg-dpkioyfnzqrde-vthosscp 1 tab PO Q6H PRN 10/08/20 Unknown History 50 mg-325 mg-40 mg tablet clonazepam 0.5 mg tablet 0.5 mg PO BID PRN 10/08/20 Unknown History cyclobenzaprine 10 mg tablet 10 mg PO BEDTIME PRN 10/08/20 Unknown History polyvinyl alcohol 1.4 % eye drops 1 drp OPHTHALMIC (EYE) QID 10/08/20 Unknown History tramadol 50 mg tablet 50 mg PO Q6H PRN 10/08/20 Unknown History zolpidem 10 mg tablet 10 mg PO BEDTIME PRN 10/08/20 Unknown History furosemide 20 mg tablet 20 mg PO . with evening meal tab 10/18/20 Unknown History naloxone 4 mg/actuation nasal 0 spray INTRANASAL 12/30/20 Unknown History spray (Narcan) nystatin 100,000 unit/gram topical TOPICAL BID 12/30/20 Unknown History powder losartan 50 mg tablet 100 mg PO DAILY tab 03/07/21 Unknown History Exam Exam Date and Time: April 28, 2021 1330 Pertinent Lab Results Pertinent Lab Results: Laboratory Tests ? 10/05/20 10/05/20 ? 14:08 14:08 WBC ?17.5 H ? Hgb ?15.3 ? Hct ?45.6 ? Plt Count ?358 ? Sodium ? ?136 Potassium ? ?4.6 Chloride ? ?102 Carbon Dioxide ? ?25 BUN ? ?16 Creatinine ? ?0.96 Assessment and Plan Assessment Anesthesia Assessment: Chart Reviewed Final Anesthetic Review Family History of Problems with Anesthesia: No History of Problems with Anesthesia: No Documented by User: Lauren Howell MD 04/29/21 12:49 [facility] Past Medical History Medical History Allergic rhinitis Arthritis Chronic pain syndrome Disc degeneration, lumbar Epicondylitis, lateral Fibromyalgia Hypothyroid Interstitial cystitis Interstitial cystitis Migraines Morbid obesity due to excess calories Morbidly obese Obstructive sleep apnea AISHWARYA on CPAP Restrictive lung disease Spinal stenosis of lumbar region Spondylosis, lumbar, with myelopathy Family History Family History Father Alcoholism Mother Leukemia Maternal Aunt Breast cancer Sister Depression Vertigo Family/Other Heart problem Diabetes Cancer Surgical History Surgical History History of esophagogastroduodenoscopy (EGD) Hx of colonoscopy Social History Social History Household Members: Family Household Members Other:: sister Alcohol intake: never Patient Tobacco Use Status: Never used Tobacco Second Hand Smoke Exposure: No Use of substances other than those prescribed or required for medical reasons: No Substance Use Type: Marijuana Are you DNR?: No Advance Directives: No Advance Directives Information Provided: Yes Advance Directives on File: No Current occupational status: disabled 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 Meds Allergies Allergy/AdvReac Type Severity Reaction Status Date / Time cefuroxime [From CEFTIN] Allergy Unknown HIVES Verified 03/29/21 13:43 Home Medications Medication Instructions Recorded Confirmed Last Taken Type hydrocortisone 2.5 % topical cream 1 applic [place] BID-QID PRN 02/10/20 06/02/20 Unknown History with perineal applicator (Anusol-HC) albuterol sulfate 2.5 mg INHALATION Q4-6H PRN 03/02/20 06/02/20 Unknown History cetirizine 10 mg tablet 10 mg PO DAILY 03/02/20 06/02/20 Unknown History cholecalciferol (vitamin D3) 50 50 mcg PO DAILY 03/02/20 06/02/20 Unknown History mcg (2,000 unit) tablet duloxetine 30 mg capsule,delayed 30 mg PO QAM 03/02/20 06/02/20 Unknown History release duloxetine 60 mg capsule,delayed 60 mg PO BEDTIME 03/02/20 06/02/20 Unknown History release fluticasone propionate 50 0 mcg INTRANASAL 03/02/20 06/02/20 Unknown History mcg/actuation nasal spray,suspension hydrochlorothiazide 25 mg tablet 25 mg PO QAM 03/02/20 06/02/20 Unknown History levothyroxine 200 mcg tablet 200 mcg PO QAM 03/02/20 06/02/20 Unknown History mirabegron 50 mg tablet,extended 50 mg PO QAM 03/02/20 06/02/20 Unknown History release 24 hr montelukast 10 mg tablet 10 mg PO BEDTIME 03/02/20 06/02/20 Unknown History peg [id number] 1 1 drp OPHTHALMIC (EYE) 03/02/20 06/02/20 Unknown History %-0.2 %-0.2 % eye drops vortioxetine 10 mg tablet 10 mg PO QAM 03/02/20 06/02/20 Unknown History sumatriptan succinate 50 mg tablet 0 mg PO 06/02/20 06/02/20 Unknown History escitalopram oxalate 20 mg tablet 20 mg PO DAILY 10/05/20 Unknown History ibuprofen 800 mg tablet 800 mg PO TID 10/05/20 Unknown History levothyroxine 50 mcg tablet 50 mcg PO DAILY 10/05/20 Unknown History verapamil 120 mg 24 hr 120 mg PO DAILY 10/05/20 Unknown History capsule,extended release albuterol sulfate 90 mcg/actuation 0 mcg INHALATION 10/08/20 Unknown History aerosol inhaler vqxlirnxzd-jjiluermerxok-jeobwbzh 1 tab PO Q6H PRN 10/08/20 Unknown History 50 mg-325 mg-40 mg tablet clonazepam 0.5 mg tablet 0.5 mg PO BID PRN 10/08/20 Unknown History cyclobenzaprine 10 mg tablet 10 mg PO BEDTIME PRN 10/08/20 Unknown History polyvinyl alcohol 1.4 % eye drops 1 drp OPHTHALMIC (EYE) QID 10/08/20 Unknown History tramadol 50 mg tablet 50 mg PO Q6H PRN 10/08/20 Unknown History zolpidem 10 mg tablet 10 mg PO BEDTIME PRN 10/08/20 Unknown History furosemide 20 mg tablet 20 mg PO . with evening meal tab 10/18/20 Unknown History naloxone 4 mg/actuation nasal 0 spray INTRANASAL 12/30/20 Unknown History spray (Narcan) nystatin 100,000 unit/gram topical TOPICAL BID 12/30/20 Unknown History powder losartan 50 mg tablet 100 mg PO DAILY tab 03/07/21 Unknown History Exam Airway Mallampati Class: II (Full neck) TM Dist: >3cm Neck ROM: Full Loose/Missing/Broken Teeth: No Heart: RRR Lungs: CTA Assessment and Plan Assessment Anesthesia Assessment: Anesthesia Plan Discussed Final Anesthetic Review NPO: Yes ASA Class: III Final Preanesthetic Review: Meds/Allgs Chart Reviewed, Consent Obtained/Reviewed and Anes Risks/Benef Reviewed Patient Risk: Intermediate Procedure Risk: Intermediate Anesthetic Plan Anesthetic Plan: MAC: Disposition: Standard PACU
--- NOTE | ~2021-04-29 | FL_ITS ---
EXAMINATION: XR FLUOROSCOPY WITH IMAGES CLINICAL INFORMATION: Low back pain. Medial branch block. COMPARISON: Fluoroscopic spot views 12/17/2020 TECHNIQUE: Fluoroscopy performed by Dr. Jayce Wright. Fluoroscopy time: 1.2 minutes DAP: 26.3 mGycm2 Images: 7 FINDINGS: There are spinal needles overlying the bilateral outer L3, L4, and L5 neural foramen. There is contrast seen in the respective nerve sheaths. Some early transforaminal epidural extension is suggested. No visible vascular communication. FL/FL guidance in OR IMPRESSION: Fluoroscopy for pain management procedures.
[2021-04-29 11:55] VITALS: BMI 56.1
[2021-04-29 12:05] VITALS: BP 140/76; PULSE 97; RESP 18; TEMP 36.1; O2SAT 98
[2021-04-29 12:15] LABS: UPreg QC Valid YES; Urine Pregnancy NEGATIVE (NEGATIVE)
[2021-04-29] MEDS: Lactated Ringers 1,000 ML 100 ML IVCONT (12:37)
--- NOTE | 2021-04-29 12:41 | P.HPSUR_ITS ---
Pre-Procedural Eval Section A Date of Service: 04/29/21 The patient is an INPATIENT: No Changes since office visit: Yes Patient answered all questions The History & Physical has been completed within 30 days and I have reviewed it.: No Section B Chief Complaint: spondylosis Details of Present Illness: As above Relevant Family History (Specify if Yes): No Relevant Social History: None Present Medications: see Short Stay Collaborative assessment Medical History: Significant History (Morbid obesity) History of Previous Operations: No relevant previous surgery Allergies: Allergies Allergy/AdvReac Type Severity Reaction Status Date / Time cefuroxime [From CEFTIN] Allergy Unknown HIVES Verified 03/29/21 13:43 Review of Systems Sugical H&P ROS: Negative: Cardiovascular, Neurological, Psychiatric, Hem-Onc, Allergic/Immunologic, Gastrointestinal, Genitourinary, Integumentary, Endocrine and Eyes/Ears/Nose/Throat and Yes, Specify: Constitution (Morbid obesity), R espiratory (Obstructive sleep apnea) and Musculoskeletal (Spondylosis lumbar spine) Exam Surgical H&P Exam: Normal: HEENT, Normal: Heart, Normal: Lungs, Normal: Extremities, Normal: Skin and Normal: Neurological and Significant Findings: Abdomen (Greatly enlarged) Plan Diagnosis/Plan: Unchanged I have reviewed the history and physical and performed a pertinent physical examination on my patient. No changes have occurred unless specified.
--- NOTE | 2021-04-29 12:46 | P.BOP_ITS ---
Brief Operative Note Date of Service: 04/29/21 Pre-op diagnosis: Spondylosis lumbar spine Post-op diagnosis: same Procedure: Therapeutic medial branch block L2-L3 L4 does ramus L5 bilateral Implants: None Surgeon: Jayce Wright MD Anesthesia: MAC Was an Photography Instructor used for this Procedure?: No Estimated blood loss (mL): 1 Condition: stable Disposition: PACU
--- NOTE | 2021-04-29 12:51 | P.OP_ITS ---
Operative Note Operative Note Date of Service: 04/29/21 Narrative: Informed consent was explained to the patient. All questions were explained and? answered.? The patient was taken inside the operating room where she was positioned prone on the operating table.? [employer] monitors were applied.? Patient was deeply sedated. ? Time-out was performed delineating correct site, side, the nature of the procedure, patient's allergy, preoperative antibiotic if needed.? All operating room staff was participating in OR time-out procedure. ? ? The lower back was prepped with ChloraPrep and draped with sterile towels.? Sterilely draped C-arm was brought over the operating field and sq picture of L3, L4-and L5 vertebra and S1 AREA were delineated on the screen.? Point of interest were delineated as connection of superior articular process ofthe L3, L4 and L5 vertebra bilaterally with corresponding transverse processes as well as connection of the sacral alae bilaterally with superior articular process of S1.? The projection of the point of interest to the skin were injected with the small amount of local anesthetic lidocaine 2% 1-1.5 cc.? After that 22 gauge 5 inch spinal needle was driven sequentially to the points of interest in tunnel vision fashion. After needles gently contacted the bone at the point of interests the needle was injected with small amount of the contrast.? The injection of the contrast did not demonstrate any intravascular or intrathecal spread of the contrast.? After that injection of the? bupivacaine 0.5%-1cc mixed with Kenalog was performed at each needle location. Total dose of Kenalog was 80 mg. ? Upon completion of the injections? needle was? removed and sterile Band-Aids were applied.? The? patient was awaken and taken outside of the operating room to recovery room where she recovered uneventfully.? She went home without immediate complications. ?
[2021-04-29 13:35] VITALS: BP 159/81; PULSE 86; RESP 22; TEMP 36.6; O2SAT 97
[2021-04-29 13:50] VITALS: BP 116/58; PULSE 68; RESP 22; O2SAT 95
[2021-04-29 14:05] VITALS: BP 130/77; PULSE 68; RESP 20; TEMP 36.4; O2SAT 99
== END 2021-04-29 14:30 ==
LOC: HO.SSS 11:46
PROVIDERS: Nurse Practitioner; PCP Family Medicine; Visit Provider Anesthesiology
PROC: (CPT 64493; principal; 2021-04-29 13:10)
DX: M48.061 Spinal stenosis, lumbar region without neurogenic claudication (principal); G89.4 Chronic pain syndrome; M54.50 Low back pain, unspecified; M51.36 Other intervertebral disc degeneration, lumbar region; M47.16 Other spondylosis with myelopathy, lumbar region; M79.7 Fibromyalgia; G47.33 Obstructive sleep apnea (adult) (pediatric); J30.9 Allergic rhinitis, unspecified; E03.9 Hypothyroidism, unspecified; E66.01 Morbid (severe) obesity due to excess calories; Z79.899 Other long term (current) drug therapy; Z99.89 Dependence on other enabling machines and devices; Z88.8 Allergy status to other drugs, medicaments and biological substances
CPT/HCPCS: 64493; 64494 ×2; 81025; J2250; J2405; J3010; J3300; Q9967

== ENCOUNTER → 2021-05-24 14:28 | Outpatient (BNVA) | payer OTHER, SELFPAY | PROVIDERS: PCP Family Medicine; Referring Provider Family Medicine; Visit Provider Nurse Practitioner | DX: K58.0 Irritable bowel syndrome with diarrhea (principal); K21.9 Gastro-esophageal reflux disease without esophagitis; K31.84 Gastroparesis; R11.2 Nausea with vomiting, unspecified | CPT/HCPCS: 99212 ==

== ENCOUNTER → 2021-06-01 13:45 | Outpatient (BNVA) | payer OTHER, SELFPAY | PROVIDERS: PCP Family Medicine; Visit Provider Anesthesiology | DX: M48.061 Spinal stenosis, lumbar region without neurogenic claudication (principal); M47.16 Other spondylosis with myelopathy, lumbar region; M51.36 Other intervertebral disc degeneration, lumbar region; G89.4 Chronic pain syndrome; G47.33 Obstructive sleep apnea (adult) (pediatric); E66.01 Morbid (severe) obesity due to excess calories; Z88.1 Allergy status to other antibiotic agents; Z99.89 Dependence on other enabling machines and devices | CPT/HCPCS: Q3014 ==

== ENCOUNTER 2021-06-22 13:13 | Outpatient (REF) | payer OTHER, SELFPAY ==
--- NOTE | ~2021-06-22 | XR_ITS ---
EXAMINATION: XR cervical spine 3V, XR thoracic spine 3V CLINICAL INFORMATION: Fibromyalgia COMPARISON: None TECHNIQUE: 4 views of the cervical spine and 2 views of the thoracic spine XR/XR cervical spine 3V FINDINGS/IMPRESSION: CERVICAL SPINE: The cervical spine is visualized to the level of C5-C6 on the lateral view. Loss of the usual cervical spine lordosis which may be due to positioning or muscle spasm. Vertebral body heights are maintained. Lateral masses of C1 are well aligned on C2. Visualized portion of the dens is intact. Mild degenerative disc disease at multiple levels, manifested by loss of disc space height, facet arthropathy and anterior disc osteophyte complexes.. No prevertebral soft tissue swelling. THORACIC SPINE: Vertebral body heights are maintained. Alignment is maintained. Mild degenerative disc disease at the thoracolumbar junction with anterior disc osteophyte complexes and borderline loss of disc space height. Paravertebral soft tissues are unremarkable.
--- NOTE | ~2021-06-22 | XR_ITS ---
EXAMINATION: XR cervical spine 3V, XR thoracic spine 3V CLINICAL INFORMATION: Fibromyalgia COMPARISON: None TECHNIQUE: 4 views of the cervical spine and 2 views of the thoracic spine XR/XR thoracic spine 3V FINDINGS/IMPRESSION: CERVICAL SPINE: The cervical spine is visualized to the level of C5-C6 on the lateral view. Loss of the usual cervical spine lordosis which may be due to positioning or muscle spasm. Vertebral body heights are maintained. Lateral masses of C1 are well aligned on C2. Visualized portion of the dens is intact. Mild degenerative disc disease at multiple levels, manifested by loss of disc space height, facet arthropathy and anterior disc osteophyte complexes.. No prevertebral soft tissue swelling. THORACIC SPINE: Vertebral body heights are maintained. Alignment is maintained. Mild degenerative disc disease at the thoracolumbar junction with anterior disc osteophyte complexes and borderline loss of disc space height. Paravertebral soft tissues are unremarkable.
[2021-06-22 14:56] LABS: Hematocrit 43.6 % (37.0-47.0); Hemoglobin 14.7 g/dl (12.0-16.0); Mean Corpuscular HGB Conc 33.7 g/dl (31.0-35.0); Mean Corpuscular Hemoglobin 30.8 pg (27.0-33.0); Mean Corpuscular Volume 91.2 fL (80.0-98.0); Mean Platelet Volume 9.3 fL (9.4-12.3); Platelet Count 331 X10*3/uL (160-400); Red Blood Count 4.78 X10*6/uL (4.20-5.50); Red Cell Distribution Width 12.9 % (11.0-16.0); White Blood Count 11.2 X10*3/uL (4.8-10.8)
[2021-06-22 15:05] LABS: Estimated Average Glucose 126 mg/dL
[2021-06-22 15:25] LABS: Alanine Aminotransferase 23 U/L (0-31); Albumin Level 4.1 g/dL (3.5-5.0); Alkaline Phosphatase 72 U/L (39-117); Anion Gap 11 (12-20); Aspartate Amino Transferase 15 U/L (5-31); Bilirubin Direct 0.3 mg/dL (0.0-0.5); Bilirubin Total 0.6 mg/dL (0.0-1.0); Blood Urea Nitrogen 11 mg/dL (9-16); Calcium 9.9 mg/dL (8.4-10.2); Carbon Dioxide 26 mmol/L (22-29); Chloride 104 mmol/L (96-108); Cholesterol 158 mg/dL; Estimated Glomerular Filt Rate > 60; Glucose Random 154 mg/dL (60-115); HDL Cholesterol 46 mg/dL; LDL Cholesterol Calculated 92 mg/dl; Potassium 4.3 mmol/L (3.3-5.1); Sodium 137 mmol/L (135-145); Total Protein 7.3 g/dL (6.5-8.0); Triglycerides 100 mg/dL
[2021-06-22 15:42] LABS: Syphilis Screen Nonreactive (Nonreactive)
[2021-06-22 15:48] LABS: Free T4 (Free Thyroxine) 1.23 ng/dL (0.71-1.85); Thyroid Stimulating Hormone 2.21 uIU/mL (0.32-4.0); Vitamin D 25-OH Total 13.9 ng/mL (>30)
[2021-06-23 05:05] LABS: ~HepC Num1 0.15 S/CO (0.00-0.79); ~Hepatitis C Antibody Nonreactive (Nonreactive)
[2021-06-23 05:07] LABS: HBS Num1 7.89 mIU/mL (0-7.99); ~Hepatitis B Surface Antibody NONREACTIVE (Nonreactive)
[2021-06-23 05:12] LABS: HBsAGNum1 0.19 S/CO (0.00-0.99); HIV AB/AG Nonreactive (Nonreactive); HIV Num 1 0.07 S/CO (0.00-0.99); Hepatitis B Surface Antigen Negative (Negative)
== END 2021-06-22 13:14 | disposition home or self-care (01) ==
LOC: HO.XRAY 13:13
PROVIDERS: PCP Family Medicine; Visit Provider Family Medicine
DX: Z01.84 Encounter for antibody response examination (principal); Z11.4 Encounter for screening for human immunodeficiency virus [HIV]; E03.9 Hypothyroidism, unspecified; I10 Essential (primary) hypertension; M79.7 Fibromyalgia
CPT/HCPCS: 36415; 72040; 72072; 80048; 80061; 80076; 82306; 83036; 84439; 84443; 85027; 86706; 86780; 86803; 87340; 87389

== ENCOUNTER → 2021-07-22 14:23 | Outpatient (BNVA) | payer OTHER, SELFPAY | PROVIDERS: PCP Family Medicine; Referring Provider Family Medicine; Visit Provider Nurse Practitioner | DX: K58.0 Irritable bowel syndrome with diarrhea (principal); K31.84 Gastroparesis; K21.9 Gastro-esophageal reflux disease without esophagitis; R11.2 Nausea with vomiting, unspecified; Z79.899 Other long term (current) drug therapy | CPT/HCPCS: 99212 ==

== ENCOUNTER → 2021-08-02 13:53 | Outpatient (BNVA) | payer OTHER, SELFPAY | PROVIDERS: PCP Family Medicine | DX: N30.10 Interstitial cystitis (chronic) without hematuria (principal); R33.9 Retention of urine, unspecified; Z79.899 Other long term (current) drug therapy | CPT/HCPCS: 51798; 99212 ==

== ENCOUNTER 2021-08-10 19:17 | Emergency (ER) | payer OTHER, SELFPAY ==
--- NOTE | ~2021-08-10 | XR_ITS ---
EXAMINATION: XR CHEST CLINICAL INFORMATION: Chest pain COMPARISON: None TECHNIQUE: Frontal view of the chest was obtained. FINDINGS: The lungs are expanded and clear. The heart size and pulmonary vascularity is normal. No gross bony abnormality seen. XR/XR chest 1V IMPRESSION: Unremarkable chest exam.
--- NOTE | 2021-08-10 19:23 | ECG_ITS ---
Test Reason : chest pain Blood Pressure : / mmHG Vent. Rate : 108 BPM Atrial Rate : 108 BPM P-R Int : 136 ms QRS Dur : 078 ms QT Int : 336 ms P-R-T Axes : 046 029 032 degrees QTc Int : 450 ms Sinus tachycardia Otherwise normal ECG When compared with ECG of 14-NOV-2016 08:40, No significant changes seen Referred By: Generic ED Physician Electronically Signed By:Apolinar Yanez
[2021-08-10 21:10] VITALS: BP 155/87; PULSE 102; RESP 22; TEMP 36.8; O2SAT 98; BMI 54.1
[2021-08-10 21:31] LABS: COVID-19 Test Negative (Negative); IDNOW Serial# 16C4AD1C; Influenza A Positive (Negative); Influenza B2 Negative (Negative)
--- NOTE | 2021-08-10 22:07 | PC.NURSE ---
pt not in waiting room at this time, will try again.
--- NOTE | 2021-08-10 22:21 | PC.NURSE ---
2nd call and pt is not in the waiting area. lwt.
[2021-08-10 22:35] VITALS: BP 120/56; PULSE 91; RESP 15; O2SAT 98
--- NOTE | 2021-08-10 22:39 | ED.GENADULT ---
HPI - General Adult General Chief complaint: Dyspnea Stated complaint: common cold symptoms, asthmatic, chest pain Time Seen by Provider: 08/10/21 22:32 Source: patient Mode of arrival: ambulatory Limitations: no limitations History of Present Illness HPI narrative: Patient comes to the emergency room complaining of 3 days of diffuse body aches, cough, not feeling hungry. Initially in triage patient reports chest pain, patient states her chest does not really hurt, only when she coughs, states it is mostly muscular. Patient is mostly concerned about the generalized weakness she has. Patient denies vomiting or diarrhea, no abdominal pain, no shortness of breath Related Data Home Medications Medication Instructions Recorded Confirmed hydrocortisone 2.5 % topical cream 1 applic TN BID-QID PRN 02/10/20 06/02/20 with perineal applicator (Anusol-HC) albuterol sulfate 2.5 mg INHALATION Q4-6H PRN 03/02/20 06/02/20 cetirizine 10 mg tablet 10 mg PO DAILY 03/02/20 06/02/20 cholecalciferol (vitamin D3) 50 50 mcg PO DAILY 03/02/20 06/02/20 mcg (2,000 unit) tablet duloxetine 30 mg capsule,delayed 30 mg PO QAM 03/02/20 06/02/20 release duloxetine 60 mg capsule,delayed 60 mg PO BEDTIME 03/02/20 06/02/20 release fluticasone propionate 50 0 mcg INTRANASAL 03/02/20 06/02/20 mcg/actuation nasal spray,suspension hydrochlorothiazide 25 mg tablet 25 mg PO QAM 03/02/20 06/02/20 levothyroxine 200 mcg tablet 200 mcg PO QAM 03/02/20 06/02/20 mirabegron 50 mg tablet,extended 50 mg PO QAM 03/02/20 06/02/20 release 24 hr montelukast 10 mg tablet 10 mg PO BEDTIME 03/02/20 06/02/20 peg [id number] 1 1 drp OPHTHALMIC (EYE) 03/02/20 06/02/20 %-0.2 %-0.2 % eye drops vortioxetine 10 mg tablet 10 mg PO QAM 03/02/20 06/02/20 sumatriptan succinate 50 mg tablet 0 mg PO 06/02/20 06/02/20 escitalopram oxalate 20 mg tablet 20 mg PO DAILY 10/05/20 ibuprofen 800 mg tablet 800 mg PO TID 10/05/20 levothyroxine 50 mcg tablet 50 mcg PO DAILY 10/05/20 verapamil 120 mg 24 hr 120 mg PO DAILY 10/05/20 capsule,extended release albuterol sulfate 90 mcg/actuation 0 mcg INHALATION 10/08/20 aerosol inhaler jwqrkyijxa-anuyiqjssvtjv-pjhqwkww 1 tab PO Q6H PRN 10/08/20 50 mg-325 mg-40 mg tablet clonazepam 0.5 mg tablet 0.5 mg PO BID PRN 10/08/20 cyclobenzaprine 10 mg tablet 10 mg PO BEDTIME PRN 10/08/20 polyvinyl alcohol 1.4 % eye drops 1 drp OPHTHALMIC (EYE) QID 10/08/20 tramadol 50 mg tablet 50 mg PO Q6H PRN 10/08/20 zolpidem 10 mg tablet 10 mg PO BEDTIME PRN 10/08/20 furosemide 20 mg tablet 20 mg PO . with evening meal tab 10/18/20 naloxone 4 mg/actuation nasal 0 spray INTRANASAL 12/30/20 spray (Narcan) nystatin 100,000 unit/gram topical TOPICAL BID 12/30/20 powder losartan 50 mg tablet 100 mg PO DAILY tab 03/07/21 betamethasone valerate 0.1 % appl TOPICAL BID 05/24/21 topical cream nabumetone 500 mg tablet 500 mg PO BID 05/24/21 tizanidine 2 mg tablet 2 mg PO TID 05/24/21 acetaminophen 650 mg 0 mg PO BID 08/02/21 tablet,extended release blood pressure test kit-large #1 ea 08/02/21 hydralazine 25 mg tablet 25 mg PO 08/02/21 lanolin alcohols-mineral appl TOPICAL BID PRN 08/02/21 oil-w.petrolatum-ceresin topical cream (Minerin Creme) losartan 100 mg tablet 100 mg PO DAILY 08/02/21 mineral oil-hydrophil petrolat TOPICAL 08/02/21 topical ointment (petrolatum) prazosin 2 mg capsule 2 mg PO BID 08/02/21 verapamil 180 mg 24 hr 360 mg PO QAM 08/02/21 capsule,extended release Previous Rx's Medication Instructions Recorded gaamqesywo-oliuxfbttlzoo-lpndmioj 1 cap PO TID PRN #10 cap 12/05/20 50 mg-300 mg-40 mg capsule (Fioricet) pentosan polysulfate sodium 100 mg 200 mg PO BID 30 Days #120 cap 06/08/20 capsule (Elmiron) tolterodine 4 mg capsule,extended 4 mg PO DAILY 30 Days #30 cap 06/18/20 release 24 hr fluticasone 250 mcg-salmeterol 50 1 ea PO BID #60 cap 08/10/20 mcg/dose blistr powdr for inhalation fluticasone 250 mcg-salmeterol 50 1 inh INHALATION BID 30 Days #60 ea 08/12/20 mcg/dose blistr powdr for inhalation menthol 0.44 %-zinc oxide 20.6 % 1 appl TOPICAL QID PRN #113 g 12/29/20 topical ointment (Calmoseptine) gabapentin 400 mg capsule 400 mg PO TID 30 Days #90 cap 01/24/21 baclofen 20 mg tablet 20 mg PO TID 30 Days #90 tab 06/01/21 loperamide 2 mg capsule 4 mg PO BID #120 cap 06/20/21 ondansetron HCl 4 mg tablet 4 mg PO TID PRN #60 tab 07/18/21 terazosin 1 mg capsule 1 mg PO BEDTIME 30 Days #30 cap 07/20/21 eluxadoline 100 mg tablet (Viberzi) 100 mg PO BID #60 tab 07/22/21 imipramine HCl 50 mg tablet 150 mg PO BID #90 tab 07/22/21 kgmqwa-dqraehot-tiwgepk 2 cap PO QID #240 cap 07/22/21 24,000-76,000-120,000 unit capsule,delayed rel (Creon) metoclopramide HCl 10 mg tablet 10 mg PO QID #120 tab 07/22/21 pantoprazole 40 mg tablet,delayed 40 mg PO BID #60 tab 07/22/21 release ibuprofen 600 mg tablet 600 mg PO TID PRN #20 tab 08/10/21 oseltamivir 75 mg capsule (Tamiflu) 75 mg PO BID 5 Days #10 cap 08/10/21 Allergies Allergy/AdvReac Type Severity Reaction Status Date / Time cefuroxime [From CEFTIN] Allergy Unknown HIVES Verified 08/10/21 21:13 [facility] Past Medical History Medical History Allergic rhinitis Arthritis Chronic pain syndrome Disc degeneration, lumbar Epicondylitis, lateral Fibromyalgia Hypothyroid Interstitial cystitis Interstitial cystitis Migraines Morbid obesity due to excess calories Morbidly obese Obstructive sleep apnea AISHWARYA on CPAP Restrictive lung disease Spinal stenosis of lumbar region Spondylosis, lumbar, with myelopathy Urinary retention Urinary retention Surgical History History of esophagogastroduodenoscopy (EGD) Hx of colonoscopy Family History Family History Father Alcoholism Mother Leukemia Maternal Aunt Breast cancer Sister Depression Vertigo Family/Other Heart problem Diabetes Cancer Social History Social History Household Members: Family Household Members Other:: sister Alcohol intake: never Patient Tobacco Use Status: Never used Tobacco Second Hand Smoke Exposure: No Substance Use Type: Marijuana Current occupational status: disabled 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 Oriented X3. Very anxious Eyes: Pupils equal, round and reactive to light. ENT: Pharynx normal. Neck: Normal inspection. Neck supple. No lymph nodes noted. No crepitus CVS: Normal heart rate and rhythm. Pulses normal. Normal S1 and S2 Respiratory: No respiratory distress. Breath sounds normal. No Wheezing. No rales Abdomen: Soft and nontender. No rigidity. No distention. Skin: Skin warm and dry. Normal skin color. Normal skin turgor. Extremities: No lower extremity edema. No Lacerations. No Rash Neuro: Oriented X 3. No motor deficit. No sensory deficit. Moving all extremities. No slurred speech. CN 2 through 12 grossly intact Psych: calm, cooperative, very anxious Course Course Course Narrative: Patient's heart rate approximately 90, respiratory rate in the low 20s, no fever. Patient very anxious. I discussed with the patient that she tested positive for influenza type A. 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 I discussed with the patient tried to stay away from them and to use a mask and good hand hygiene all the time. Patient was given ibuprofen and the 1st dose of Tamiflu in the emergency room. Medical Decision Making Lab Data Labs: Lab Results 08/10/21 08/10/21 Range/Units 21:08 21:08 COVID-19 (JARRELL) Negative (Negative) COVID-19 Clin Com See Note Influenza Type A (DOYLE) Positive A (Negative) Influenza Type B (DOYLE) Negative (Negative) Influenza A & B Note See Note Discharge Plan Discharge Clinical Impression: Type A influenza Patient Disposition: Home, Self-Care Instructions: Influenza (ED) Additional Instructions: Please follow-up with your primary care physician tomorrow. If you have any worsening or new symptoms, please return to the emergency room or call 911 Prescriptions: New oseltamivir [Tamiflu] 75 mg capsule 75 mg PO BID 5 Days Qty: 10 0RF ibuprofen 600 mg tablet 600 mg PO TID PRN (Reason: fever or pain) Qty: 20 0RF No Action Elmiron 100 mg capsule 200 mg PO BID 30 Days Qty: 120 0RF tolterodine 4 mg capsule,extended release 24hr 4 mg PO DAILY 30 Days Qty: 30 0RF fluticasone propion-salmeterol 250-50 mcg/dose blister with device 1 ea PO BID Qty: 60 11RF fluticasone propion-salmeterol 250-50 mcg/dose blister with device 1 inh inhalation BID 30 Days Qty: 60 3RF menthol-zinc oxide [Calmoseptine] 0.44-20.6 % ointment 1 appl topical QID PRN (Reason: skin irritation) Qty: 113 3RF loperamide 2 mg capsule 4 mg PO BID Qty: 120 6RF ondansetron HCl 4 mg tablet 4 mg PO TID PRN (Reason: for nausea/vomiting) Qty: 60 3RF terazosin 1 mg capsule 1 mg PO BEDTIME 30 Days Qty: 30 0RF cnpdcrjfeb-jyanqneaafnay-lvlt [Fioricet] 50-300-40 mg capsule 1 cap PO TID PRN (Reason: pain) Qty: 10 0RF hydrocortisone [Anusol-HC] 2.5 % cream with perineal applicator 1 applic TN BID-QID PRN0RF sumatriptan succinate 50 mg tablet 0 mg PO 0RF albuterol sulfate 90 mcg/actuation HFA aerosol inhaler 0 mcg inhalation 0RF tramadol 50 mg tablet 50 mg PO Q6H PRN0RF zolpidem 10 mg tablet 10 mg PO BEDTIME PRN0RF clonazepam 0.5 mg tablet 0.5 mg PO BID PRN0RF polyvinyl alcohol 1.4 % drops 1 drp ophthalmic (eye) QID 0RF cyclobenzaprine 10 mg tablet 10 mg PO BEDTIME PRN (Reason: muscle spasm) 0RF qcfqmoubud-rinmchfnpbqcp-jeoj 50-325-40 mg tablet 1 tab PO Q6H PRN (Reason: pain) 0RF losartan 50 mg tablet 100 mg PO DAILY 0RF escitalopram oxalate 20 mg tablet 20 mg PO DAILY 0RF verapamil 120 mg capsule,ext rel. pellets 24 hr 120 mg PO DAILY 0RF levothyroxine 50 mcg tablet 50 mcg PO DAILY 0RF ibuprofen 800 mg tablet 800 mg PO TID 0RF Narcan 4 mg/actuation spray,non-aerosol 0 spray intranasal 0RF nystatin 100,000 unit/gram powder topical BID 0RF cholecalciferol (vitamin D3) 50 mcg (2,000 unit) tablet 50 mcg PO DAILY 0RF Myrbetriq 50 mg tablet extended release 24 hr 50 mg PO QAM 0RF duloxetine 60 mg capsule,delayed release(DR/EC) 60 mg PO BEDTIME 0RF duloxetine 30 mg capsule,delayed release(DR/EC) 30 mg PO QAM 0RF hydrochlorothiazide 25 mg tablet 25 mg PO QAM 0RF levothyroxine 200 mcg tablet 200 mcg PO QAM 0RF montelukast 10 mg tablet 10 mg PO BEDTIME 0RF Trintellix 10 mg tablet 10 mg PO QAM 0RF fluticasone propionate 50 mcg/actuation spray,suspension 0 mcg intranasal 0RF cetirizine 10 mg tablet 10 mg PO DAILY 0RF albuterol sulfate 2.5 mg /3 mL (0.083 %) solution for nebulization 2.5 mg inhalation Q4-6H PRN0RF Artificial Tears(wa-ultw-khro) 1-0.2-0.2 % drops 1 drp ophthalmic (eye) 0RF furosemide 20 mg tablet 20 mg PO . with evening meal 0RF gabapentin 400 mg capsule 400 mg PO TID 30 Days Qty: 90 12RF acetaminophen 650 mg tablet extended release 0 mg PO BID 0RF hydralazine 25 mg tablet 25 mg PO 0RF verapamil 180 mg capsule,ext rel. pellets 24 hr 360 mg PO QAM 0RF Minerin Creme Cream topical BID PRN0RF prazosin 2 mg capsule 2 mg PO BID 0RF losartan 100 mg tablet 100 mg PO DAILY 0RF (DME) blood pressure test kit-large Kit See Rx Instructions ea .ROUTE DAILY Qty: 1 0RF Rx Instructions: As directed petrolatum Ointment topical 0RF baclofen 20 mg tablet 20 mg PO TID 30 Days Qty: 90 8RF nabumetone 500 mg tablet 500 mg PO BID 0RF tizanidine 2 mg tablet 2 mg PO TID 0RF betamethasone valerate 0.1 % cream topical BID 0RF imipramine HCl 50 mg tablet 150 mg PO BID Qty: 90 6RF metoclopramide HCl 10 mg tablet 10 mg PO QID Qty: 120 6RF pantoprazole 40 mg tablet,delayed release (DR/EC) 40 mg PO BID Qty: 60 6RF Creon 24,000-76,000 -120,000 unit capsule,delayed release(DR/EC) 2 cap PO QID Qty: 240 6RF Viberzi 100 mg tablet 100 mg PO BID Qty: 60 4RF
[2021-08-10] MEDS: Ibuprofen 600 MG TABLET PO (22:49)
[2021-08-10] MEDS: Oseltamivir Phosphate 75 MG CAPSULE PO (22:49)
== END 2021-08-10 23:02 | disposition home or self-care (01) ==
LOC: HO.ED 22:52
PROVIDERS: Emergency Provider Emergency Medicine; PCP Family Medicine
DX: J10.1 Influenza due to other identified influenza virus with other respiratory manifestations (principal); G47.33 Obstructive sleep apnea (adult) (pediatric); Z99.89 Dependence on other enabling machines and devices; Z20.822 Contact with and (suspected) exposure to COVID-19
CPT/HCPCS: 71045; 87502; 87635; 93005; 99283; 99284

== ENCOUNTER 2021-11-01 08:20 | Outpatient (REF) | payer OTHER, SELFPAY ==
--- NOTE | ~2021-11-01 | XR_ITS ---
EXAMINATION: XR KNEES, STANDING AP XR KNEE, RIGHT CLINICAL INFORMATION: Knee pain COMPARISON: Bilateral knee radiographs 11/14/2018. TECHNIQUE: Standing AP view of both knees is performed. Additional lateral x2 and axial patella views of the right knee are also obtained. FINDINGS: Right: Normal bony mineralization. No fracture, dislocation, destructive process, or definite effusion. Medial and lateral knee joint compartments show no narrowing or subchondral sclerosis. No erosive change or chondrocalcinosis. Axial view patella demonstrates lateral tilting and borderline lateralization. Left: Normal bony mineralization. No fracture or dislocation. No joint narrowing or erosive change or chondrocalcinosis. XR/XR knee standing BI IMPRESSION: Right: -Lateral tilting patella with mild lateralization. -No knee joint compartment narrowing or erosive change. No definite effusion. Left: -No joint narrowing or erosive change.
--- NOTE | ~2021-11-01 | XR_ITS ---
EXAMINATION: XR KNEES, STANDING AP XR KNEE, RIGHT CLINICAL INFORMATION: Knee pain COMPARISON: Bilateral knee radiographs 11/14/2018. TECHNIQUE: Standing AP view of both knees is performed. Additional lateral x2 and axial patella views of the right knee are also obtained. FINDINGS: Right: Normal bony mineralization. No fracture, dislocation, destructive process, or definite effusion. Medial and lateral knee joint compartments show no narrowing or subchondral sclerosis. No erosive change or chondrocalcinosis. Axial view patella demonstrates lateral tilting and borderline lateralization. Left: Normal bony mineralization. No fracture or dislocation. No joint narrowing or erosive change or chondrocalcinosis. XR/XR knee RT 2V IMPRESSION: Right: -Lateral tilting patella with mild lateralization. -No knee joint compartment narrowing or erosive change. No definite effusion. Left: -No joint narrowing or erosive change.
== END 2021-11-01 08:21 | disposition home or self-care (01) ==
LOC: HO.HOSX 08:20
PROVIDERS: Visit Provider Physician Assistant
DX: M25.561 Pain in right knee (principal); M25.562 Pain in left knee
CPT/HCPCS: 73560; 73565

== ENCOUNTER 2021-11-01 13:41 | Outpatient (REF) | payer OTHER, SELFPAY ==
--- NOTE | ~2021-11-01 | MM_ITS ---
EXAMINATION: MM SCREENING DIGITAL BREAST TOMOSYNTHESIS, BILATERAL CLINICAL INFORMATION: Screening. Asymptomatic. The lifetime risk of breast cancer based on the Tyrer-Cuzick Model is 13.3%. COMPARISON: Mammography: October 29, 2020 and studies dating back to March 21, 2014 TECHNIQUE: Digital breast tomosynthesis is performed in both the craniocaudal and mediolateral oblique views along with computer-aided detection (CAD). Synthesized 2D images are generated from the tomosynthesis. FINDINGS: There are scattered areas of fibroglandular density (ACR BI-RADS breast composition Category b). There are no significant masses, abnormal calcifications, or other abnormalities. MM/MM tomosynthesis screening BI IMPRESSION: There are no significant changes from prior study. ASSESSMENT: BI-RADS 1: Negative RECOMMENDATION: Routine annual mammography screening. This patient's information was entered into a reminder system with a target due date for their next mammogram.
== END 2021-11-01 13:42 | disposition home or self-care (01) ==
LOC: HO.MAMMO 13:41
PROVIDERS: PCP Family Medicine; Visit Provider Family Medicine
DX: Z12.31 Encounter for screening mammogram for malignant neoplasm of breast (principal); R33.9 Retention of urine, unspecified; R35.1 Nocturia; N30.10 Interstitial cystitis (chronic) without hematuria; M22.2X1 Patellofemoral disorders, right knee; M22.2X2 Patellofemoral disorders, left knee
CPT/HCPCS: 51798; 77063; 77067; 99202; 99212; J1040

== ENCOUNTER → 2021-12-21 13:14 | Outpatient (BNVA) | payer OTHER, SELFPAY | PROVIDERS: PCP Family Medicine; Referring Provider Family Medicine; Visit Provider Nurse Practitioner | DX: R11.2 Nausea with vomiting, unspecified (principal); K58.0 Irritable bowel syndrome with diarrhea; K21.9 Gastro-esophageal reflux disease without esophagitis; E66.01 Morbid (severe) obesity due to excess calories; Z68.43 Body mass index [BMI] 50.0-59.9, adult | CPT/HCPCS: 99212 ==

== ENCOUNTER 2022-01-15 17:11 | Emergency (ER) | payer OTHER, SELFPAY ==
[2022-01-15 17:12] VITALS: BP 140/109; PULSE 95; RESP 18; TEMP 36.1; O2SAT 98; BMI 54.6
[2022-01-15 22:15] VITALS: BP 169/106
[2022-01-15 23:43] LABS: Delay - Chemistry DELAY
[2022-01-15 23:53] LABS: Basophils Percent Auto 0.3 % (0-2); Eosinophils Absolute Auto 0.1 X10*3/uL (0.0-0.4); Eosinophils Percent Auto 1.1 % (0-4); Hematocrit 39.4 % (37.0-47.0); Hemoglobin 13.9 g/dl (12.0-16.0); Imm Gran Abs Auto 0.09 X10*3/uL (0.00-0.03); Imm Gran Pct Auto 0.8 % (0.0-0.4); Lymphocytes Absolute Auto 2.2 X10*3/uL (1.2-4.9); Lymphocytes Percent Auto 19.4 % (20-40); MANUAL DIFF FLAG SCAN; Mean Corpuscular HGB Conc 35.3 g/dl (31.0-35.0); Mean Corpuscular Hemoglobin 30.3 pg (27.0-33.0); Mean Platelet Volume 10.4 fL (9.4-12.3); Monocytes Absolute Auto 0.6 X10*3/uL (0.1-1.2); Monocytes Percent Auto 5.3 % (2-11); Neutrophils Absolute Auto 8.3 x10*3/uL (2.0-8.3); Neutrophils Percent Auto 73.1 % (45-73); PLT CLUMP 1; Red Blood Count 4.58 X10*6/uL (4.20-5.50); Red Cell Distribution Width 12.9 % (11.0-16.0); SCAN SMEAR FLAG 1
--- NOTE | 2022-01-15 23:59 | ED_ITS ---
HPI - General Adult General Chief complaint: General Medical Stated complaint: High blood pressure Time Seen by Provider: 01/15/22 23:59 Source: patient Mode of arrival: ambulatory Limitations: no limitations History of Present Illness HPI narrative: 46-year-old female who presents emergency department for evaluation of a headache and elevated blood pressures. Patient states she woke up this morning at 11:00 and she had a headache. She describes the headache as a pounding sensation located in the frontal part of her head. She states the headache is been constant and 10/10 since onset. At the time of evaluation emergency department her headache is 10/10. She states she has had similar headaches in the past and she has been treated in the emergency department with IV medications. She states she took her blood pressure this morning and was elevated at 160 9/108. She states that she took her blood pressure again and it was higher, she spoke to her providers office and was advised to go to the [facility] department for evaluation. Patient states that she has been having elevated blood pressures recently and her doctor made a change to her medications. The patient was taking verapamil ER 180 mg 2 pills daily. Her doctor decreased her to 180 mg once a day and started her on hydralazine 50 mg twice a day, this change occurred over the past week. She denied fever, chills, rhinorrhea, sore throat, cough, chest pain, shortness of breath, dyspnea on exertion. She does have swelling and pain in both lower extremities as well as in her hands. She states that this is been going on for several weeks. Related Data Home Medications Medication Instructions Recorded Confirmed hydrocortisone 2.5 % topical cream 1 applic NE BID-QID PRN 02/10/20 06/02/20 with perineal applicator (Anusol-HC) albuterol sulfate 2.5 mg/3 mL 2.5 mg inhalation Q4-6H PRN 03/02/20 06/02/20 (0.083 %) solution for nebulization cetirizine 10 mg tablet 10 mg PO DAILY 03/02/20 06/02/20 cholecalciferol (vitamin D3) 50 50 mcg PO DAILY 03/02/20 06/02/20 mcg (2,000 unit) tablet duloxetine 30 mg capsule,delayed 30 mg PO QAM 03/02/20 06/02/20 release duloxetine 60 mg capsule,delayed 60 mg PO BEDTIME 03/02/20 06/02/20 release fluticasone propionate 50 0 mcg intranasal 03/02/20 06/02/20 mcg/actuation nasal spray,suspension hydrochlorothiazide 25 mg tablet 25 mg PO QAM 03/02/20 06/02/20 levothyroxine 200 mcg tablet 200 mcg PO QAM 03/02/20 06/02/20 montelukast 10 mg tablet 10 mg PO BEDTIME 03/02/20 06/02/20 peg 090-ftvubupoqahb-axdocoze 1 1 drp ophthalmic (eye) 03/02/20 06/02/20 %-0.2 %-0.2 % eye drops vortioxetine 10 mg tablet 10 mg PO QAM 03/02/20 06/02/20 sumatriptan succinate 50 mg tablet 0 mg PO 06/02/20 06/02/20 escitalopram oxalate 20 mg tablet 20 mg PO DAILY 10/05/20 ibuprofen 800 mg tablet 800 mg PO TID 10/05/20 levothyroxine 50 mcg tablet 50 mcg PO DAILY 10/05/20 albuterol sulfate 90 mcg/actuation 0 mcg inhalation 10/08/20 aerosol inhaler bvdovnohos-jaetbmsajortn-lmwgnxxb 1 tab PO Q6H PRN pain 10/08/20 50 mg-325 mg-40 mg tablet clonazepam 0.5 mg tablet 0.5 mg PO BID PRN 10/08/20 cyclobenzaprine 10 mg tablet 10 mg PO BEDTIME PRN muscle spasm 10/08/20 polyvinyl alcohol 1.4 % eye drops 1 drp ophthalmic (eye) QID 10/08/20 tramadol 50 mg tablet 50 mg PO Q6H PRN 10/08/20 zolpidem 10 mg tablet 10 mg PO BEDTIME PRN 10/08/20 furosemide 20 mg tablet 20 mg PO . with evening meal 10/18/20 naloxone 4 mg/actuation nasal 0 spray intranasal 12/30/20 spray (Narcan) nystatin 100,000 unit/gram topical topical BID 12/30/20 powder betamethasone valerate 0.1 % appl topical BID 05/24/21 topical cream nabumetone 500 mg tablet 500 mg PO BID 05/24/21 tizanidine 2 mg tablet 2 mg PO TID 05/24/21 acetaminophen 650 mg 0 mg PO BID 08/02/21 tablet,extended release blood pressure test kit-large #1 ea 08/02/21 hydralazine 25 mg tablet 25 mg PO 08/02/21 lanolin alcohols-mineral appl topical BID PRN 08/02/21 oil-w.petrolatum-ceresin topical cream (Minerin Creme topical) losartan 100 mg tablet 100 mg PO DAILY 08/02/21 mineral oil-hydrophil petrolat topical 08/02/21 topical ointment (petrolatum topical ointment) prazosin 2 mg capsule 2 mg PO BID 08/02/21 verapamil 180 mg 24 hr 360 mg PO QAM 08/02/21 capsule,extended release tizanidine 4 mg tablet 4 mg PO Q6-8H PRN 11/01/21 Previous Rx's Medication Instructions Recorded rhhajyrhcc-gbpzxqjfmnqcn-qxepkjdc 1 cap PO TID PRN pain #10 caps 03/13/20 50 mg-300 mg-40 mg capsule (Fioricet) tolterodine 4 mg capsule,extended 4 mg PO DAILY 30 days #30 caps 06/18/20 release 24 hr fluticasone 250 mcg-salmeterol 50 1 ea PO BID #60 caps 08/10/20 mcg/dose blistr powdr for inhalation fluticasone 250 mcg-salmeterol 50 1 inh inhalation BID 30 days #60 ea 08/12/20 mcg/dose blistr powdr for inhalation menthol 0.44 %-zinc oxide 20.6 % 1 appl topical QID PRN skin 12/29/20 topical ointment (Calmoseptine) irritation #113 grams pantoprazole 40 mg tablet,delayed 40 mg PO BID #60 tabs 07/22/21 release ibuprofen 600 mg tablet 600 mg PO TID PRN fever or pain 08/10/21 #20 tabs oseltamivir 75 mg capsule (Tamiflu) 75 mg PO BID 5 days #10 caps 08/10/21 terazosin 1 mg capsule 1 mg PO BEDTIME nocturia 90 days 08/30/21 #90 caps ondansetron HCl 4 mg tablet 4 mg PO TID PRN for 10/27/21 nausea/vomiting #60 tabs imipramine HCl 50 mg tablet 150 mg PO BID #90 tabs 11/01/21 mirabegron 50 mg tablet,extended 50 mg PO QAM #90 tabs 11/01/21 release 24 hr pentosan polysulfate sodium 100 mg 200 mg PO BID 90 days #360 caps 11/15/21 capsule (Elmiron) gabapentin 400 mg capsule 400 mg PO TID 30 days #90 caps 12/06/21 eluxadoline 100 mg tablet (Viberzi) 100 mg PO BID #60 tabs 12/21/21 jwgubm-zofcfblr-loxqwdn 2 cap PO QID #240 caps 12/21/21 24,000-76,000-120,000 unit capsule,delayed rel (Creon) loperamide 2 mg capsule 4 mg PO BID #120 caps 12/21/21 metoclopramide HCl 10 mg tablet See Rx Instructions PO QID #159 12/21/21 tabs Allergies Allergy/AdvReac Type Severity Reaction Status Date / Time cefuroxime [From CEFTIN] Allergy Unknown HIVES Verified 12/21/21 13:30 Review of Systems Review of Systems: Yes all other systems are reviewed and are negative PMFSH Past Medical History Medical History Allergic rhinitis Arthritis Chronic pain syndrome Disc degeneration, lumbar Epicondylitis, lateral Fibromyalgia Hypothyroid Interstitial cystitis Interstitial cystitis Migraines Morbid obesity due to excess calories Morbidly obese Obstructive sleep apnea AISHWARYA on CPAP Restrictive lung disease Spinal stenosis of lumbar region Spondylosis, lumbar, with myelopathy Urinary retention Urinary retention Surgical History History of esophagogastroduodenoscopy (EGD) Hx of colonoscopy Family History Family History Father Alcoholism Mother Leukemia Maternal Aunt Breast cancer Sister Depression Vertigo Family/Other Heart problem Diabetes Cancer Brother Atherosclerotic cardiovascular disease Cardiomegaly Social History Social History Household Members: Family Household Members Other:: sister Alcohol intake: never Patient Tobacco Use Status: Never used Tobacco Second Hand Smoke Exposure: No Substance Use Type: Marijuana Advance Directives: No Advance Directives Information Provided: Yes Current occupational status: disabled 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 Physical Exam ED Vital Signs: Vital Signs - 24 hr 01/15/22 17:12 01/15/22 22:15 10/10/22 00:33 Temperature 97 F Pulse Rate 95 76 Respiratory Rate 18 18 Blood Pressure 140/109 H 169/106 H 136/73 Pulse Oximetry 98 96 Oxygen Delivery Method Room Air Room Air 01/16/22 01:35 Temperature 97.5 F Pulse Rate 69 Respiratory Rate 18 Blood Pressure 129/66 Pulse Oximetry 96 Oxygen Delivery Method Room Air BMI result Body Mass Index 54.6 Const Other: Awake, alert, female patient, very pleasant and cooperative, she does not appear to be in distress, elevated BMI 54.6 HENMT Head: Yes normal to inspection, Yes normocephalic and Yes atraumatic Ears: external ears normal General nose exam: Normal external nose present Face and sinus: Yes normal facial exam Mouth: Normal oral and palatal mucosa present Throat: Yes posterior oropharynx normal Eyes General: appearance normal, both eyes and all related structures Pupils: Equal, round and reactive pupils present Neck Neck: Yes normal visual inspection, Yes no lymphadenopathy, Yes trachea midline and Yes supple Chest Chest palpation & inspection: normal inspection of the chest and normal palpation of entire chest wall Resp Effort & Inspection: normal respiratory effort and able to speak in complete sentences Auscultation: clear to auscultation bilaterally Cardio Rate: regular rate Rhythm: regular rhythm Heart sounds: S1 normal heart sound present, S2 normal heart sound present and no murmurs GI Inspection: Yes normal to inspection Palpation (GI): Soft to palpation, nontender and no guarding Auscultation: normal bowel sounds General: Yes no CVA tenderness Back/Spine/Pelvis Back: no CVA tenderness Skin General skin exam: no rashes or lesions noted Neuro Cranial nerves: Yes CN's II-XII intact bilaterally and Yes Equal, round and reactive pupils present Cognition (Neuro): normal cognition Motor exam (neuro): 5/5 motor strength present throughout Extrem General: Yes normal to inspection Psych Appearance: grossly normal Speech and movement: Normal speech and movement present Affect: normal affect Attitude: cooperative Thought process: Normal thought process present Thought content: Normal thought content present Course Course Course Narrative: 46-year-old female who presents emergency department for evaluation of headache which is been present since 11:00. Patient states that the headache is 10/10, located in the frontal area of her head and has been a constant throbbing sensation. She has had similar headaches in the past has been treated with IV medications here in the emergency department. The patient had a recent change her blood pressure medications and she states that her blood pressure was elevated Throughout the day today. In the emergency department the patient did have elevated blood pressures of 140/109 and 169/106. Her vital signs were otherwise unremarkable. Patient's physical examination was unremarkable. At this time, I believe that the patient's headache is consistent with a migraine- like headache I do not think that the headache is caused by her blood pressure. The patient has known essential hypertension and had a recent change in her medications and I do not think that she has hypertensive emergency or urgency at this time. The patient was given Reglan 10 mg IV, Benadryl 50 mg IV and Toradol 15 mg IV for headache. I will check laboratory evaluation in urinalysis on the patient. 0150: Laboratory evaluation: CBC was normal. Glucose elevated 183. CO2 low 19. Urinalysis negative. Patient's headache did improve with the above treatment however she is feeling slightly anxious therefore she was given Ativan 2 mg orally. The patient was given printed and verbal instructions on management of hypertension and headaches. Medical Decision Making Lab Data Result diagrams: 01/15/22 23:35 01/15/22 23:35 Labs: Lab Results 01/15/22 01/15/22 01/15/22 Range/Units 23:35 23:35 23:35 WBC 11.3 H (4.8-10.8) X10*3/uL RBC 4.58 (4.20-5.50) X10*6/uL Hgb 13.9 (12.0-16.0) g/dl Hct 39.4 (37.0-47.0) % MCV 86.0 (80.0-98.0) fL MCH 30.3 (27.0-33.0) pg MCHC 35.3 H (31.0-35.0) g/dl RDW 12.9 (11.0-16.0) % Plt Count TNP MPV 10.4 (9.4-12.3) fL Immature Gran % (Auto) 0.8 H (0.0-0.4) % Neut % (Auto) 73.1 H (45-73) % Lymph % (Auto) 19.4 L (20-40) % [place] % (Auto) 5.3 (2-11) % Eos % (Auto) 1.1 (0-4) % Baso % (Auto) 0.3 (0-2) % Lymph # (Auto) 2.2 (1.2-4.9) X10*3/uL [place] # (Auto) 0.6 (0.1-1.2) X10*3/uL Eos # (Auto) 0.1 (0.0-0.4) X10*3/uL Baso # (Auto) 0.0 (0.0-0.2) X10*3/uL Abs Immat Gran (auto) 0.09 H (0.00-0.03) X10*3/uL Absolute Neuts (auto) 8.3 (2.0-8.3) x10*3/uL Absolute Nucleated RBC 0.000 (0.0-0.012) X10*3/uL Nucleated RBC % (auto) 0.0 (0.0-0.2) /100WBC Smear Tech's Comments VERIFIED Sodium 139 (135-145) mmol/L Potassium 4.8 (3.3-5.1) mmol/L Chloride 108 (96-108) mmol/L Carbon Dioxide 19 L (22-29) mmol/L Anion Gap 17 (12-20) BUN 9 (9-16) mg/dL Creatinine 0.75 (0.5-1.4) mg/dL Estim Creat Clear Calc 117.4 Estimated GFR > 60 Random Glucose 183 H (60-115) mg/dL Calcium 9.2 D (8.4-10.2) mg/dL Total Bilirubin 0.3 (0.0-1.0) mg/dL AST 24 D (5-31) U/L ALT 18 (0-31) U/L Alkaline Phosphatase 76 (39-117) U/L Total Protein 7.4 (6.5-8.0) g/dL Albumin 4.0 (3.5-5.0) g/dL Lipase 19 (8-78) U/L Specimen Comment DELAY Urine Color Urine Appearance Urine pH (5.0-9.0) Ur Specific [place] (1.005-1.025) Urine Protein (Neg-Trace) mg/dL Urine Glucose (UA) (Negative) mg/dL Urine Ketones (Negative) mg/dL Urine Blood (Negative) Urine Nitrite (Negative) Ur Leukocyte Esterase (Negative) 01/16/22 Range/Units 00:37 WBC (4.8-10.8) X10*3/uL RBC (4.20-5.50) X10*6/uL Hgb (12.0-16.0) g/dl Hct (37.0-47.0) % MCV (80.0-98.0) fL MCH (27.0-33.0) pg MCHC (31.0-35.0) g/dl RDW (11.0-16.0) % Plt Count MPV (9.4-12.3) fL Immature Gran % (Auto) (0.0-0.4) % Neut % (Auto) (45-73) % Lymph % (Auto) (20-40) % [place] % (Auto) (2-11) % Eos % (Auto) (0-4) % Baso % (Auto) (0-2) % Lymph # (Auto) (1.2-4.9) X10*3/uL [place] # (Auto) (0.1-1.2) X10*3/uL Eos # (Auto) (0.0-0.4) X10*3/uL Baso # (Auto) (0.0-0.2) X10*3/uL Abs Immat Gran (auto) (0.00-0.03) X10*3/uL Absolute Neuts (auto) (2.0-8.3) x10*3/uL Absolute Nucleated RBC (0.0-0.012) X10*3/uL Nucleated RBC % (auto) (0.0-0.2) /100WBC Smear Tech's Comments Sodium (135-145) mmol/L Potassium (3.3-5.1) mmol/L Chloride (96-108) mmol/L Carbon Dioxide (22-29) mmol/L Anion Gap (12-20) BUN (9-16) mg/dL Creatinine (0.5-1.4) mg/dL Estim Creat Clear Calc Estimated GFR Random Glucose (60-115) mg/dL Calcium (8.4-10.2) mg/dL Total Bilirubin (0.0-1.0) mg/dL AST (5-31) U/L ALT (0-31) U/L Alkaline Phosphatase (39-117) U/L Total Protein (6.5-8.0) g/dL Albumin (3.5-5.0) g/dL Lipase (8-78) U/L Specimen Comment Urine Color Yellow Urine Appearance Clear Urine pH 6.0 (5.0-9.0) Ur Specific [place] 1.020 (1.005-1.025) Urine Protein Negative (Neg-Trace) mg/dL Urine Glucose (UA) Negative (Negative) mg/dL Urine Ketones Negative (Negative) mg/dL Urine Blood Negative (Negative) Urine Nitrite Negative (Negative) Ur Leukocyte Esterase Negative (Negative) Discharge Plan Discharge Clinical Impression: Headache, Hypertension Patient Disposition: Home, Self-Care Additional Instructions: Your blood work was normal. You did have some high blood pressure readings but I do not think that this is the cause of your headaches. Your headache did improve with Reglan 10 mg, Benadryl 50 mg and Toradol 15 mg IV. These are common medications that we treat migraine-like headaches with. You also received Ativan 2 mg orally for your anxiety. You just had a recent change in your blood pressure medications in it sometimes takes 4-6 weeks before these medications help correct her blood pressure. I want you to check your blood pressure on Mondays, Wednesdays and Sunday mornings for the next 2 weeks and write these readings down so you can discuss them with your doctor. Do not take your blood pressure your not feeling well, when you are feeling ill this will make your blood pressure higher than normal. Follow-up with your doctor in 2 days. Please return to the emergency department if your symptoms get worse or if you develop any symptoms that are concerning to you. Prescriptions: No Action tolterodine 4 mg capsule,extended release 24hr 4 mg PO DAILY 30 Days Qty: 30 0RF fluticasone propion-salmeterol 250-50 mcg/dose blister with device 1 ea PO BID Qty: 60 11RF fluticasone propion-salmeterol 250-50 mcg/dose blister with device 1 inh inhalation BID 30 Days Qty: 60 3RF menthol-zinc oxide [Calmoseptine] 0.44-20.6 % ointment 1 appl topical QID PRN (Reason: skin irritation) Qty: 113 3RF terazosin 1 mg capsule 1 mg PO BEDTIME 90 Days Qty: 90 0RF ondansetron HCl 4 mg tablet 4 mg PO TID PRN (Reason: for nausea/vomiting) Qty: 60 3RF Elmiron 100 mg capsule 200 mg PO BID 90 Days Qty: 360 0RF gabapentin 400 mg capsule 400 mg PO TID 30 Days Qty: 90 11RF aenvaajnzk-vzfvxujiolzya-fizq [Fioricet] 50-300-40 mg capsule 1 cap PO TID PRN (Reason: pain) Qty: 10 0RF oseltamivir [Tamiflu] 75 mg capsule 75 mg PO BID 5 Days Qty: 10 0RF ibuprofen 600 mg tablet 600 mg PO TID PRN (Reason: fever or pain) Qty: 20 0RF hydrocortisone [Anusol-HC] 2.5 % cream with perineal applicator 1 applic NE BID-QID PRN sumatriptan succinate 50 mg tablet 0 mg PO albuterol sulfate 90 mcg/actuation HFA aerosol inhaler 0 mcg inhalation tramadol 50 mg tablet 50 mg PO Q6H PRN zolpidem 10 mg tablet 10 mg PO BEDTIME PRN clonazepam 0.5 mg tablet 0.5 mg PO BID PRN polyvinyl alcohol 1.4 % drops 1 drp ophthalmic (eye) QID cyclobenzaprine 10 mg tablet 10 mg PO BEDTIME PRN (Reason: muscle spasm) zartpvphfl-yumeliueuwmad-qbsd 50-325-40 mg tablet 1 tab PO Q6H PRN (Reason: pain) escitalopram oxalate 20 mg tablet 20 mg PO DAILY levothyroxine 50 mcg tablet 50 mcg PO DAILY ibuprofen 800 mg tablet 800 mg PO TID Narcan 4 mg/actuation spray,non-aerosol 0 spray intranasal nystatin 100,000 unit/gram powder topical BID cholecalciferol (vitamin D3) 50 mcg (2,000 unit) tablet 50 mcg PO DAILY duloxetine 60 mg capsule,delayed release(DR/EC) 60 mg PO BEDTIME duloxetine 30 mg capsule,delayed release(DR/EC) 30 mg PO QAM hydrochlorothiazide 25 mg tablet 25 mg PO QAM levothyroxine 200 mcg tablet 200 mcg PO QAM montelukast 10 mg tablet 10 mg PO BEDTIME Trintellix 10 mg tablet 10 mg PO QAM fluticasone propionate 50 mcg/actuation spray,suspension 0 mcg intranasal cetirizine 10 mg tablet 10 mg PO DAILY albuterol sulfate 2.5 mg /3 mL (0.083 %) solution for nebulization 2.5 mg inhalation Q4-6H PRN Artificial Tears(mq-ozjf-rmns) 1-0.2-0.2 % drops 1 drp ophthalmic (eye) furosemide 20 mg tablet 20 mg PO . with evening meal acetaminophen 650 mg tablet extended release 0 mg PO BID hydralazine 25 mg tablet 25 mg PO verapamil 180 mg capsule,ext rel. pellets 24 hr 360 mg PO QAM Minerin Creme Cream topical BID PRN prazosin 2 mg capsule 2 mg PO BID losartan 100 mg tablet 100 mg PO DAILY (DME) blood pressure test kit-large Kit See Rx Instructions .ROUTE DAILY Qty: 1 Rx Instructions: As directed petrolatum Ointment topical nabumetone 500 mg tablet 500 mg PO BID tizanidine 2 mg tablet 2 mg PO TID betamethasone valerate 0.1 % cream topical BID pantoprazole 40 mg tablet,delayed release (DR/EC) 40 mg PO BID Qty: 60 6RF loperamide 2 mg capsule 4 mg PO BID Qty: 120 6RF metoclopramide HCl 10 mg tablet See Rx Instructions PO QID Qty: 159 6RF Rx Instructions: 1 tab tidac and 2 tabs qhs orally 4 times a day; Creon 24,000-76,000 -120,000 unit capsule,delayed release(DR/EC) 2 cap PO QID Qty: 240 6RF Viberzi 100 mg tablet 100 mg PO BID Qty: 60 5RF tizanidine 4 mg tablet 4 mg PO Q6-8H PRN imipramine HCl 50 mg tablet 150 mg PO BID Qty: 90 6RF mirabegron 50 mg tablet extended release 24 hr 50 mg PO QAM Qty: 90 3RF
[2022-01-16 00:01] LABS: White Blood Count 11.3 X10*3/uL (4.8-10.8)
[2022-01-16 00:33] VITALS: BP 136/73; PULSE 76; RESP 18; O2SAT 96
[2022-01-16 00:44] LABS: Appearance Urine Clear; Color Urine Yellow; Glucose Urine UA Negative (Negative); Leukocyte Esterase Urine Negative (Negative); Nitrite Urine Negative (Negative); Urine Blood Negative (Negative); Urine Ketones Negative (Negative); Urine Protein Negative (Neg-Trace)
[2022-01-16 00:45] LABS: SLIDE REVIEW VERIFIED
[2022-01-16 00:57] LABS: Alanine Aminotransferase 18 U/L (0-31); Alkaline Phosphatase 76 U/L (39-117); Anion Gap 17 (12-20); Aspartate Amino Transferase 24 U/L (5-31); Bilirubin Total 0.3 mg/dL (0.0-1.0); Blood Urea Nitrogen 9 mg/dL (9-16); Calcium 9.2 mg/dL (8.4-10.2); Carbon Dioxide 19 mmol/L (22-29); Chloride 108 mmol/L (96-108); Creatinine Clr Calc Pharmacy 117.4; Estimated Glomerular Filt Rate > 60; Glucose Random 183 mg/dL (60-115); Lipase 19 U/L (8-78); Potassium 4.8 mmol/L (3.3-5.1); Sodium 139 mmol/L (135-145); Total Protein 7.4 g/dL (6.5-8.0)
[2022-01-16] MEDS: Metoclopramide HCl 10 MG/2 ML VIAL IVPUSH (00:59)
[2022-01-16] MEDS: Ketorolac Tromethamine 15 MG/ML VIAL IVPUSH (01:00)
[2022-01-16] MEDS: diphenhydrAMINE HCL 50 MG/ML VIAL IVPUSH (01:00)
[2022-01-16 01:35] VITALS: BP 129/66; PULSE 69; RESP 18; TEMP 36.4; O2SAT 96
[2022-01-16] MEDS: LORazepam 1 MG TABLET 2 MG PO (01:54)
[2022-01-16 03:31] VITALS: BP 132/69; PULSE 71; RESP 16; O2SAT 97
== END 2022-01-16 03:32 | disposition home or self-care (01) ==
PROVIDERS: Emergency Provider Emergency Medicine Emergency Medical Services; PCP Family Medicine
DX: R51.9 Headache, unspecified (principal); I10 Essential (primary) hypertension; Z79.899 Other long term (current) drug therapy
CPT/HCPCS: 36415; 80053; 81003; 83690; 85025; 96374; 96375; 99284; J1200; J1885; J2765

== ENCOUNTER 2022-01-31 14:08 | Outpatient (REF) | payer OTHER, SELFPAY ==
[2022-01-31 15:52] LABS: Thyroid Stimulating Hormone 11.01 uIU/mL (0.32-4.0)
== END 2022-01-31 14:09 | disposition home or self-care (01) ==
LOC: HO.LAB 14:08
PROVIDERS: Absent Provider Family Medicine; PCP Family Medicine; Visit Provider Internal Medicine
DX: E03.9 Hypothyroidism, unspecified (principal)
CPT/HCPCS: 36415; 84443

== ENCOUNTER → 2022-02-01 13:12 | Outpatient (BNVA) | payer OTHER, SELFPAY | PROVIDERS: PCP Family Medicine; Visit Provider Anesthesiology | DX: K58.0 Irritable bowel syndrome with diarrhea (principal); R11.2 Nausea with vomiting, unspecified; K21.9 Gastro-esophageal reflux disease without esophagitis; I10 Essential (primary) hypertension; E03.9 Hypothyroidism, unspecified; E66.01 Morbid (severe) obesity due to excess calories; G47.33 Obstructive sleep apnea (adult) (pediatric) | CPT/HCPCS: 99212 ==

== ENCOUNTER → 2022-02-27 13:13 | Outpatient (BNVA) | payer OTHER, SELFPAY | PROVIDERS: PCP Family Medicine; Visit Provider Physician Assistant | DX: M22.2X1 Patellofemoral disorders, right knee (principal); M22.2X2 Patellofemoral disorders, left knee | CPT/HCPCS: 20610; 99212; J1020 ==

== ENCOUNTER → 2022-03-07 13:46 | Outpatient (BNVA) | payer OTHER, SELFPAY | PROVIDERS: PCP Family Medicine; Visit Provider Nurse Practitioner | DX: K21.9 Gastro-esophageal reflux disease without esophagitis (principal); K58.0 Irritable bowel syndrome with diarrhea; R11.2 Nausea with vomiting, unspecified; K31.84 Gastroparesis | CPT/HCPCS: 99212 ==

== ENCOUNTER → 2022-04-19 12:39 | Outpatient (BNVA) | payer OTHER, SELFPAY | PROVIDERS: PCP Family Medicine; Visit Provider Nurse Practitioner | DX: K21.9 Gastro-esophageal reflux disease without esophagitis (principal); K58.0 Irritable bowel syndrome with diarrhea; K31.84 Gastroparesis | CPT/HCPCS: 99212 ==

== ENCOUNTER → 2022-05-02 14:20 | Outpatient (BNVA) | payer OTHER, SELFPAY | PROVIDERS: PCP Family Medicine; Visit Provider Nurse Practitioner Family | DX: N30.10 Interstitial cystitis (chronic) without hematuria (principal); N39.46 Mixed incontinence | CPT/HCPCS: 51798; 99212 ==

== ENCOUNTER → 2022-05-10 14:32 | Outpatient (BNVA) | payer OTHER, SELFPAY | PROVIDERS: PCP Family Medicine; Visit Provider Anesthesiology | DX: M54.41 Lumbago with sciatica, right side (principal); M54.42 Lumbago with sciatica, left side; M47.16 Other spondylosis with myelopathy, lumbar region; M48.061 Spinal stenosis, lumbar region without neurogenic claudication; K58.0 Irritable bowel syndrome with diarrhea; R11.2 Nausea with vomiting, unspecified; K21.9 Gastro-esophageal reflux disease without esophagitis; I10 Essential (primary) hypertension; E03.9 Hypothyroidism, unspecified; G47.33 Obstructive sleep apnea (adult) (pediatric); E66.01 Morbid (severe) obesity due to excess calories; Z68.43 Body mass index [BMI] 50.0-59.9, adult | CPT/HCPCS: 99212 ==

== ENCOUNTER 2022-05-25 14:00 | Outpatient (RCR) | payer OTHER, SELFPAY ==
[2022-05-11 12:03] VITALS: BP 136/88; PULSE 68; O2SAT 99
--- NOTE | 2022-05-12 12:44 | MHC.PT.EP ---
[facility] [place] Office [place] [facility] [place] Office [address] Trena Mitchell [address] [phone] F: [phone] F: [phone] F: [phone] F: [phone] Physical Therapy Plan of Care Date of Evaluation: Date of Surgery: N/A Diagnosis: leg pain Assessment: Pt is a pleasant 46yo F who presents to PT with unspecified leg pain. She has B knee pain, R>L. She presents to PT with current impairments in pain, decreased ROM, decreased strength noted throughout mobility, decreased balance, decreased endurance, and impaired gait. She is limited functionally by prolonged standing, walking, stair navigation, bending, and sleeping. Examination limited this date 2* episode of lightheadedness; vitals taken and were WNL (BP 136/88) and symptoms resolved in ~2 min. Pt is recommended to be seen 2x/week for 4 weeks in order to maximize strength and mobility to facilitate return to PLOF. 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 Manual therapy to restore motion and function. Therapeutic exercise to improve strength and flexibility. Neuromuscular re-education for posture and balance. Therapeutic activities to return to functional activities of daily living. Electronically signed by: Marisol Tolentino, PT, DPT Please sign and return to therapist. Thank you for your referral.
--- NOTE | 2022-06-22 11:19 | MHC.PT.DC ---
[facility] [place] [facility] [place] [facility] [place] [facility] [address] Trena Mitchell [address] [phone] F: [phone] F: [phone] F: [phone] F: [phone] Physical Therapy Discharge Report Diagnosis: leg pain Date of Surgery: N/A Date of Evaluation: 05/11/22 Date of Discharge: 06/22/22 Treatments to Date: 2 Cancellations to Date: 5 No Shows to Date: 1 Discharge Status: Patient Elected to Stop Discharge Summary: Pt was seen for PT from 05/11/22-05/25/22. Her last attended appointment was 05/25/22. She cancelled her remaining appointments reporting it is too stressful at this time. She has not attended PT in 30 days. Pt is being D/C from skilled PT at this time. Pt current level of function unknown at this time. Electronically signed by: Marisol Tolentino, PT, DPT Please sign and return to therapist. Thank you for your referral.
== END 2022-06-22 11:19 | disposition home or self-care (01) ==
LOC: HO.PT 14:00
PROVIDERS: PCP Family Medicine; Visit Provider Internal Medicine Cardiovascular Disease
DX: M79.604 Pain in right leg (principal); M79.605 Pain in left leg
CPT/HCPCS: 97110; 97162

== ENCOUNTER → 2022-05-31 12:02 | Outpatient (BNVA) | payer OTHER, SELFPAY | PROVIDERS: PCP Family Medicine; Visit Provider Physician Assistant | DX: M25.561 Pain in right knee (principal) | CPT/HCPCS: 99212 ==

== ENCOUNTER 2022-06-09 12:25 | Outpatient (REF) | payer OTHER, SELFPAY ==
--- NOTE | ~2022-06-09 | US_ITS ---
EXAMINATION: US RETROPERITONEAL LIMITED (RENAL ONLY) CLINICAL INFORMATION: Interstitial cystitis (chronic) without hematuria. COMPARISON: CT abdomen and pelvis 09/21/2015. Renal ultrasound 02/01/2015. TECHNIQUE: Real-time imaging of the kidneys. FINDINGS: RIGHT KIDNEY: 12.2 x 4.4 x 5.1 cm (SAG x AP x TRV). The kidney is normal in size, contour, and echogenicity. Renal cortical thickness is normal. No calculi or focal parenchymal lesions. No hydronephrosis. LEFT KIDNEY: 12.0 x 5.5 x 5.4 cm (SAG x AP x TRV). The kidney is normal in size, contour, and echogenicity. Renal cortical thickness is normal. No calculi or focal parenchymal lesions. No hydronephrosis. Incidental note made of an echogenic liver consistent with hepatic steatosis. US/US retroperitoneal limited IMPRESSION: Normal-appearing kidneys. Incidentally noted hepatic steatosis.
== END 2022-06-09 12:26 | disposition home or self-care (01) ==
LOC: HO.US 12:25
PROVIDERS: PCP Family Medicine; Visit Provider Nurse Practitioner Family
DX: N39.46 Mixed incontinence (principal); N30.10 Interstitial cystitis (chronic) without hematuria
CPT/HCPCS: 76775

== ENCOUNTER 2022-06-26 12:13 | Outpatient (REF) | payer OTHER, SELFPAY ==
--- NOTE | ~2022-06-26 | US_ITS ---
EXAMINATION: US PELVIS LIMITED (BLADDER) CLINICAL INFORMATION: Retention of urine, unspecified. COMPARISON: Ultrasound retroperitoneal limited (renal only) 06/09/2022. CT abdomen and pelvis with contrast 09/21/2015. Ultrasound retroperitoneal limited (renal only) 02/01/2015. TECHNIQUE: Real-time imaging of the bladder. FINDINGS: Limited visualization due to body habitus BLADDER: Partially distended. Bilateral ureteral jets are not demonstrated. Prevoid bladder volume is 134.6 mL. Postvoid bladder volume is 26.3 mL. Technically limited visualization secondary to body habitus. US/US bladder IMPRESSION: Mild postvoid bladder volume retention. Bilateral ureteral jets were not visualized.
== END 2022-06-26 12:14 | disposition home or self-care (01) ==
LOC: HO.US 12:13
PROVIDERS: PCP Family Medicine; Visit Provider Nurse Practitioner Family
DX: R33.9 Retention of urine, unspecified (principal)
CPT/HCPCS: 76857

== ENCOUNTER 2022-06-29 13:13 | Outpatient (REF) | payer OTHER, SELFPAY ==
[2022-06-29 15:07] LABS: MANUAL DIFF FLAG NO
[2022-06-29 15:43] LABS: Basophils Percent Auto 0.3 % (0-2); Eosinophils Absolute Auto 0.1 X10*3/uL (0.0-0.4); Eosinophils Percent Auto 0.6 % (0-4); Hematocrit 40.2 % (37.0-47.0); Hemoglobin 13.8 g/dl (12.0-16.0); Imm Gran Abs Auto 0.04 X10*3/uL (0.00-0.03); Imm Gran Pct Auto 0.4 % (0.0-0.4); Lymphocytes Absolute Auto 1.7 X10*3/uL (1.2-4.9); Lymphocytes Percent Auto 17.4 % (20-40); Mean Corpuscular HGB Conc 34.3 g/dl (31.0-35.0); Mean Corpuscular Hemoglobin 30.7 pg (27.0-33.0); Mean Corpuscular Volume 89.5 fL (80.0-98.0); Mean Platelet Volume 9.3 fL (9.4-12.3); Monocytes Absolute Auto 0.7 X10*3/uL (0.1-1.2); Monocytes Percent Auto 7.1 % (2-11); Neutrophils Absolute Auto 7.4 x10*3/uL (2.0-8.3); Neutrophils Percent Auto 74.2 % (45-73); Platelet Count 277 X10*3/uL (160-400); Red Blood Count 4.49 X10*6/uL (4.20-5.50); Red Cell Distribution Width 13.2 % (11.0-16.0); White Blood Count 9.9 X10*3/uL (4.8-10.8)
[2022-06-29 16:23] LABS: Estimated Average Glucose 146 mg/dL; Hemoglobin A1c % 6.7 %
[2022-06-29 16:27] LABS: Anion Gap 11 (12-20); Blood Urea Nitrogen 13 mg/dL (9-16); Calcium 9.2 mg/dL (8.4-10.2); Carbon Dioxide 27 mmol/L (22-29); Chloride 104 mmol/L (96-108); Estimated Glomerular Filt Rate > 60; Glucose Random 113 mg/dL (60-115); Potassium 4.3 mmol/L (3.3-5.1); Sodium 138 mmol/L (135-145)
[2022-06-29 16:43] LABS: Free T4 (Free Thyroxine) 0.77 ng/dL (0.71-1.85); Thyroid Stimulating Hormone 8.15 uIU/mL (0.32-4.0)
== END 2022-06-29 13:14 | disposition home or self-care (01) ==
LOC: HO.LAB 13:13
PROVIDERS: Absent Provider Family Medicine; PCP Family Medicine; Visit Provider Nurse Practitioner Family
DX: E11.9 Type 2 diabetes mellitus without complications (principal); E03.9 Hypothyroidism, unspecified; N30.10 Interstitial cystitis (chronic) without hematuria; R35.1 Nocturia; R35.0 Frequency of micturition
CPT/HCPCS: 36415; 51798; 80048; 83036; 84439; 84443; 85025; 99212

== ENCOUNTER → 2022-07-13 09:13 | Outpatient (BNVA) | payer OTHER, MEDICAID, SELFPAY | PROVIDERS: PCP Family Medicine; Visit Provider Physician Assistant | DX: M22.2X1 Patellofemoral disorders, right knee (principal); M22.2X2 Patellofemoral disorders, left knee | CPT/HCPCS: 20610; 99212; J1020 ==

== ENCOUNTER → 2022-07-14 14:40 | Outpatient (BNVA) | payer OTHER, MEDICAID, SELFPAY | PROVIDERS: PCP Family Medicine; Visit Provider Urology | DX: N39.46 Mixed incontinence (principal); R35.0 Frequency of micturition | CPT/HCPCS: 52000; 99212 ==

== ENCOUNTER → 2022-07-27 13:58 | Outpatient (BNVA) | payer OTHER, MEDICAID, SELFPAY | PROVIDERS: PCP Family Medicine; Visit Provider Nurse Practitioner | DX: K21.9 Gastro-esophageal reflux disease without esophagitis (principal); K31.84 Gastroparesis; K58.0 Irritable bowel syndrome with diarrhea; E66.01 Morbid (severe) obesity due to excess calories; N30.10 Interstitial cystitis (chronic) without hematuria; Z68.43 Body mass index [BMI] 50.0-59.9, adult | CPT/HCPCS: 99212 ==

== ENCOUNTER 2022-08-07 14:07 | Outpatient (REF) | payer OTHER, MEDICAID, SELFPAY | END 2022-08-07 14:08 | disposition home or self-care (01) | LOC: HO.US 14:07 | PROVIDERS: PCP Family Medicine; Visit Provider Nurse Practitioner Family | DX: Z13.89 Encounter for screening for other disorder (principal) ==

== ENCOUNTER 2022-11-03 13:19 | Outpatient (AMB) | payer OTHER, MEDICAID, SELFPAY ==
--- NOTE | 2022-11-03 13:21 | A.OFFVIS_ITS ---
Intake Vital Signs 11/03/22 13:22 Height 5 ft 1 in Weight 296 lb BMI 55.9 BP 118/73 Blood Pressure Location Lt brachial Position Sitting Pulse 99 Intake Visit Reasons: Follow up Intake Note: Patient presents in office in 6 weeks follow up of GERD and IBS. CC: Patient reports she has been doing better and medications are working well. Denies other GI symptoms. Spoke Maker Required: No Accompanied by: Self / Same As Patient Allergies cefuroxime [From CEFTIN] Allergy (Unknown, Verified 11/20/22 13:24) HIVES HPI Follow up HPI Details Assessment & Plan (1) GERD (gastroesophageal reflux disease): ?Code(s): K21.9 - Gastro-esophageal reflux disease without esophagitis ?Plan: She is having extreme belching and the burps smell like farts! She also has a great deal of flatulence. With discussion, she has had several medication changes, including stopping cymbalta and adding Trulicity to her regimen. Her stooling is constantly all day long' but only small harder stools. So, since Trulicity slows the GI tract, I think we need to decrease the Viberzi to offset this. She is actually having the equivalent of CIC. We will decrease t o 100mg qd and I will make the 75mg available for her to further self titrate. She continues on protonix bid, reglan 10mg 1 tabs tid and 2 qhs, and has other possible constipating medications including imipramine 200mg for her IC, Vesicare, tramadol, verapamil, lasix, HCTZ, Jardiance.? She will be going out of state until mid October. I will see her then. (2) Gastroparesis: ?Code(s): K31.84 - Gastroparesis (3) Irritable bowel syndrome with diarrhea: ?Code(s): K58.0 - Irritable bowel syndrome with diarrhea (4) Morbidly obese: ?Code(s): E66.01 - Morbid (severe) obesity due to excess calories (5) Interstitial cystitis: ?Code(s): N30.10 - Interstitial cystitis (chronic) without hematuria ? ? ? Medications: New eluxadoline (Viber zi) ?? must admini ster with a meal/f ood 75 mg? PO BID 60 t abs 3RF ? ? Refilled hydrocortisone 2.5 % (Anusol-HC) ?1 applicator rec tally 2 to 4 times a day PRN;? 30 da ys 30 grams 6RF he morrhoids K64.9 - Unspecifie d hemorrhoids ? On Hold eluxadoline (Viber zi) ?? Hold Commen t:? Doctor's Order 100 mg? PO BID 60 tabs 5RF K58.0 - Irritable bowel syndrome wit h diarrhea ? TODAY'S VISIT She feels she is doing better with the Viberzi 75mc bid and prn imodium. Her foul belching is less but will intermittently occur. Her appetite has been poor, but she is very stressed living with her family. She was better when she was out of state and away from her current situation. She has a social worker clinical looking for housing for her. She will do better with her own apt. She continues on protonix bid, reglan 10mg 1 tabs tid and 2 qhs. She will be due for repeat colonoscopy next year at age 48, her last was neg and in [address] Pinto. ROV 6 mos. PFSH Medical History Allergic rhinitis Arthritis Chronic pain syndrome Disc degeneration, lumbar Epicondylitis, lateral Fibromyalgia Hypothyroid Interstitial cystitis Interstitial cystitis Migraines Morbid obesity due to excess calories Morbidly obese Obstructive sleep apnea AISHWARYA on CPAP Restrictive lung disease Spinal stenosis of lumbar region Spondylosis, lumbar, with myelopathy Urinary retention Urinary retention Surgical History History of esophagogastroduodenoscopy (EGD) Hx of colonoscopy Family History Father Alcoholism Mother Leukemia Maternal Aunt Breast cancer Sister Depression Vertigo Family/Other Heart problem Diabetes Cancer Brother Atherosclerotic cardiovascular disease Cardiomegaly Social History Household Members: Family Household Members Other:: sister Alcohol intake: never Patient Tobacco Use Status: Never used Tobacco Second Hand Smoke Exposure: No Substance Use Type: Marijuana Current occupational status: disabled 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 Review of Systems Const Denies fatigue, Denies fever(s), Denies night sweats, Denies poor appetite and Denies weight loss ENT Reports Normal hearing present, Denies dental pain, Denies dysphagia, Denies hearing loss, Denies mouth pain, Denies odynophagia, Denies throat swelling, Denies tongue swelling and Reports other (Dentition adequate) Card Reports no additional complaints Resp Reports no additional complaints GI Denies abdominal pain, Denies melena, Reports bloating, Denies hematochezia, Reports constipation, Denies GI cramping, Denies dysphagia, Denies excessive flatus, Reports early satiety, Reports heartburn, Denies diarrhea, Denies nausea, Denies odynophagia, Denies vomiting and Denies hematemesis Skin/Breast Denies pruritus, Denies lesions, Denies rash and Denies jaundice Neuro Reports Normal hearing present and Denies Abnormal speech present Psych Reports anxiety Endo Denies fatigue Aller/Immun Denies throat swelling and Denies tongue swelling Physical Exam Vital Signs: Last Vital Signs Pulse 99 11/03/22 13:22 BP 118/73 11/03/22 13:22 BMI result Body Mass Index 55.9 Const General: cooperative, no acute distress, well developed and well groomed Nutritional Appearance: well nourished and obese morbidly obese Orientation/consciousness: oriented to person, oriented to place and oriented to time Limitations: No language barrier HEENT Head: Yes normocephalic and Yes atraumatic Eyes General: appearance normal, both eyes and all related structures Pupils: Equal, round and reactive pupils present Neck Neck: Yes normal visual inspection and Yes no lymphadenopathy Thyroid: Thyroid normal Resp Effort & Inspection: normal respiratory effort and able to speak in complete sentences Auscultation: clear to auscultation bilaterally Cardio Rate: regular rate Rhythm: regular rhythm Heart sounds: Normal, physiologic split S2 sound present Peripheral pulses: radial pulses present and posterior tibial pulses present GI Inspection: No distended, Yes Abdominal panniculus present and Yes obesity Palpation (GI): Soft to palpation, nontender, no guarding, not rigid and No hepatosplenomegaly present Percussion: Yes normal to percussion Auscultation: normal bowel sounds Rectal Exam - Female: deferred Skin General skin exam: no rashes or lesions noted, turgor normal, skin not dry, no jaundice, No spider nevi and no striae Rashes: no rashes Nails: normal Neuro General: oriented to person, oriented to place and oriented to time Cranial nerves: Yes Equal, round and reactive pupils present and Yes Normal hearing present Speech: No Abnormal speech present Extrem General: Yes normal to inspection, No clubbing, No cyanosis and No edema Psych Appearance: grossly normal and well kempt Mental Status: mental status grossly normal Speech and movement: Normal speech and movement present Affect: normal affect Attitude: cooperative Thought process: Normal thought process present and not confabulating Thought content: Normal thought content present Insight: Limited insight present (Psych) Judgement: Limited judgement present (Psych) Assessment & Plan Assessment & Plan (1) GERD (gastroesophageal reflux disease): Code(s): K21.9 - Gastro-esophageal reflux disease without esophagitis Plan: She feels she is doing better with the Viberzi 75mc bid and prn imodium. Her foul belching is less but will intermittently occur. Her appetite has been poor, but she is very stressed living with her family. She was better when she was out of state and away from her current situation. She has a social worker clinical looking for housing for her. She will do better with her own apt. She continues on protonix bid, reglan 10mg 1 tabs tid and 2 qhs. She will be due for repeat colonoscopy next year at age 48, her last was neg and in [address] Pinto. COLLIN 6 mos. (2) Gastroparesis: Code(s): K31.84 - Gastroparesis (3) Irritable bowel syndrome with diarrhea: Code(s): K58.0 - Irritable bowel syndrome with diarrhea Medications: Changed From nwzxaw-mpxavhaw-cxyvsdu 24,000-76,000 -120,000 unit 2 caps PO QID 240 caps 6RF To kofcpd-sspzbsjj-bcsvvsp 24,000-76,000 -120,000 unit (Creon) 2 caps PO QID 240 caps 6RF From metoclopramide HCl 1 tab tidac and 2 tabs qhs orally 4 times a day; 159 tabs 6RF K31.84 - Gastroparesis To metoclopramide HCl 1 tab tidac and 2 tabs qhs orally 4 times a day; 159 tabs 6RF K31.84 - Gastroparesis Refilled pantoprazole 40 mg PO BID 180 tabs 3RF K21.9 - Gastro-esophageal reflux disease without esophagitis Discontinued eluxadoline Discontinued Reason: Doctor's Order 100 mg PO BID 60 tabs 5RF K58.0 - Irritable bowel syndrome with diarrhea Coding Level of Care Code Est Pt Level 3 (68951) Diagnoses GERD (gastroesophageal reflux disease) K21.9 Gastroparesis K31.84 Irritable bowel syndrome with diarrhea K58.0
[2022-11-03 13:22] VITALS: BP 118/73; PULSE 99; BMI 55.9
== END 2022-11-03 13:48 | disposition home or self-care (01) ==
PROVIDERS: Visit Provider Nurse Practitioner
DX: K21.9 Gastro-esophageal reflux disease without esophagitis (principal); K31.84 Gastroparesis; K58.0 Irritable bowel syndrome with diarrhea
CPT/HCPCS: 99213

== ENCOUNTER → 2022-11-03 13:19 | Outpatient (BNVA) | payer OTHER, MEDICAID, SELFPAY | PROVIDERS: Visit Provider Nurse Practitioner | DX: K21.9 Gastro-esophageal reflux disease without esophagitis (principal); K31.84 Gastroparesis; K58.0 Irritable bowel syndrome with diarrhea; E66.01 Morbid (severe) obesity due to excess calories; Z68.43 Body mass index [BMI] 50.0-59.9, adult | CPT/HCPCS: 99212 ==

== ENCOUNTER 2022-11-17 08:13 | Outpatient (REF) | payer OTHER, SELFPAY ==
--- NOTE | ~2022-11-17 | XR_ITS ---
EXAMINATIONS: BILATERAL KNEES 4 VIEWS and bilateral weightbearing view CLINICAL INFORMATION: Bilateral knee pain COMPARISON: 10/02/2021 and 11/01/2021 TECHNIQUE: AP, lateral, tunnel, sunrise views of each knee were obtained. FINDINGS: There are no fractures or dislocations. There is no knee joint effusion. There is no significant soft tissue swelling. There is subluxation of each patella laterally with patellar spurring. There is no joint effusion seen. Soft tissues unremarkable. XR/XR knee standing BI IMPRESSION: Lateral subluxation of each patella with patellar spurring.
--- NOTE | ~2022-11-17 | XR_ITS ---
EXAMINATIONS: BILATERAL KNEES 4 VIEWS and bilateral weightbearing view CLINICAL INFORMATION: Bilateral knee pain COMPARISON: 10/02/2021 and 11/01/2021 TECHNIQUE: AP, lateral, tunnel, sunrise views of each knee were obtained. FINDINGS: There are no fractures or dislocations. There is no knee joint effusion. There is no significant soft tissue swelling. There is subluxation of each patella laterally with patellar spurring. There is no joint effusion seen. Soft tissues unremarkable. XR/XR knee LT 2V IMPRESSION: Lateral subluxation of each patella with patellar spurring.
--- NOTE | ~2022-11-17 | XR_ITS ---
EXAMINATIONS: BILATERAL KNEES 4 VIEWS and bilateral weightbearing view CLINICAL INFORMATION: Bilateral knee pain COMPARISON: 10/02/2021 and 11/01/2021 TECHNIQUE: AP, lateral, tunnel, sunrise views of each knee were obtained. FINDINGS: There are no fractures or dislocations. There is no knee joint effusion. There is no significant soft tissue swelling. There is subluxation of each patella laterally with patellar spurring. There is no joint effusion seen. Soft tissues unremarkable. XR/XR knee RT 2V IMPRESSION: Lateral subluxation of each patella with patellar spurring.
== END 2022-11-17 08:14 | disposition home or self-care (01) ==
LOC: HO.HOSX 08:13
PROVIDERS: Visit Provider Physician Assistant
DX: M22.2X1 Patellofemoral disorders, right knee (principal); M22.2X2 Patellofemoral disorders, left knee; E11.9 Type 2 diabetes mellitus without complications
CPT/HCPCS: 20610; 73560; 73565; J1020

== ENCOUNTER 2022-11-17 12:20 | Outpatient (AMB) | payer OTHER, SELFPAY ==
--- NOTE | 2022-11-17 12:50 | MHC.OFFVIS ---
Intake Vital Signs 11/17/22 12:51 Height 5 ft 1 in Weight 296 lb BMI 55.9 Intake Visit Reasons: OV - B/L knee pain, last inj 07/13/22 Intake Note: Shereen is a 47 year old female who presents today for a follow up for her bilateral knee pain, last inj .09.29. Patient reports she wants to repeat her injections,? Allergies cefuroxime [From CEFTIN] Allergy (Unknown, Verified 11/17/22 12:58) HIVES HPI OV - B/L knee pain, last inj 07/13/22 HPI Details 47-year-old female who presents in the office today for a follow up of bilateral knee pain. The patient had a cortisone injection in the bilateral knees on 07/13/2022. She would like to a repeat of bilateral knee injections while in the office today. [facility] Medical History Allergic rhinitis Arthritis Chronic pain syndrome Disc degeneration, lumbar Epicondylitis, lateral Fibromyalgia Hypothyroid Interstitial cystitis Interstitial cystitis Migraines Morbid obesity due to excess calories Morbidly obese Obstructive sleep apnea AISHWARYA on CPAP Restrictive lung disease Spinal stenosis of lumbar region Spondylosis, lumbar, with myelopathy Urinary retention Urinary retention Surgical History History of esophagogastroduodenoscopy (EGD) Hx of colonoscopy Family History Father Alcoholism Mother Leukemia Maternal Aunt Breast cancer Sister Depression Vertigo Family/Other Heart problem Diabetes Cancer Brother Atherosclerotic cardiovascular disease Cardiomegaly Social History Household Members: Family Household Members Other:: sister Alcohol intake: never Patient Tobacco Use Status: Never used Tobacco Second Hand Smoke Exposure: No Substance Use Type: Marijuana Current occupational status: disabled 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 Tenderness along the medial joint line. ROM full with crepitus. Negative Steinmans. No ligamentous laxity. NVI. Office Procedures Joint Injection/Drain Joint Injection/Drain Primary Site: right knee Secondary Site: left knee Injected: 40 mg of, DepoMedrol, with 8 mL of (2% plain lido ) and in the joint Approach Used: anterolateral Procedure: The patient tolerated the procedure well, but had some pain with the injection and there was some relief with the local anesthesia Coding 93364 - Large joint Procedure code (CPT) selection complete Results Reviewed Results Reviewed: 11/17/22 12:52 Lidocaine HCl 2 % MPF [Xylocaine 2 % MPF] 5 ml .ROUTE .STK-MED ONE methylPREDNISolone acetate [DEPO-MedroL] 40 mg .ROUTE .STK-MED ONE Assessment & Plan Assessment & Plan (1) Patellofemoral arthralgia of both knees: Code(s): M22.2X1 - Patellofemoral disorders, right knee; M22.2X2 - Patellofemoral disorders, left knee (2) Diabetes mellitus: Code(s): E11.9 - Type 2 diabetes mellitus without complications Plan Ms. Cuellar is a 47-year-old female who presents in the office today for a follow up of bilateral knee pain. The patient had a cortisone injection in the bilateral knees on 07/13/2022. She would like to a repeat of bilateral knee injections while in the office today. The patient was offered a cortisone injection in the bilateral knees with 40 mg of DepoMedrol. The patient was explained the risk, benefits, and alternatives to receiving this injection. After receiving consent for the injection, the patient had the procedure done while in office today. The patient tolerated the procedure well with no complications. Due to the patient?s history of diabetes, they were instructed to monitor her blood glucose level. The patient was informed that they could see a rise in their numbers and if the numbers became too high, they were instructed to call their PCP. The patient was also informed that they could have facial flushing as a side effect of the injection but this will pass. Follow up will be PRN, or sooner if needed. X-rays of the Bilateral knees which were obtained while in the office today and were reviewed by me, Isabella Rocha PA-C, re-demonstrated bilateral osteoarthris. Orders: Orders XR knee LT 2V Today M25.569 - Pain in unspecified knee XR knee RT 2V Today M25.569 - Pain in unspecified knee XR knee standing BI Today M25.569 - Pain in unspecified knee Patient Instructions: Scribed for Isabella Rocha PA-C by Lizette Mancilla biomedical field service engineer, on 11/17/2022 at 12:29 pm, EST. Coding Level of Care Code Est Pt Level 3 (10840) Diagnoses Patellofemoral arthralgia of both knees M22.2X1; M22.2X2 Diabetes mellitus E11.9 CPT Codes Coding - 64096 Large joint: 91215 - Large joint ([id number])
[2022-11-17 12:51] VITALS: BMI 55.9
== END 2022-11-17 13:10 | disposition home or self-care (01) ==
PROVIDERS: PCP Family Medicine; Visit Provider Physician Assistant
DX: M22.2X1 Patellofemoral disorders, right knee (principal); M22.2X2 Patellofemoral disorders, left knee; E11.9 Type 2 diabetes mellitus without complications
CPT/HCPCS: 20610

== ENCOUNTER 2022-11-20 13:15 | Outpatient (AMB) | payer OTHER, SELFPAY ==
--- NOTE | 2022-11-20 13:24 | MHC.OFFVIS ---
Intake Vital Signs 11/20/22 13:25 Height 5 ft 1 in Weight 293 lb 8 oz BMI 55.5 BP 163/107 H Blood Pressure Location Lt brachial Position Sitting Pulse 81 Pulse Source Pulse Oximeter Pulse Oximetry (%) 83 L Oxygen Delivery Method Room Air Intake Visit Reasons: Follow Up/Knee Pain Allergies cefuroxime [From CEFTIN] Allergy (Unknown, Verified 11/20/22 13:24) HIVES HPI Follow Up/Knee Pain HPI Details Shereen is back in my office with request to perform repeated L3-L4 does ramus L5 therapeutic medial branch block treat her spondylosis. However the concerns from Cardiology came to my office about her chest pain. Would not have a clearance to perform the procedure. The patient needs to go to her invoicing machine operator Dr. Francisco and resolve the issues with her chest pain before she will go to the operating room for the injection. Prior: Shereen is very pleasant 46 years old female who is in my office under observation for long period of time.? She received in the past for the treatment of spondylosis of lumbar spine medial branch blocks L3-L4 does ramus L5 therapeutic with relatively good results few weeks of pain relief.? He also was receiving tizanidine 2. mg t.i.d..? No issue of tizanidine was raised today [facility] Medical History Allergic rhinitis Arthritis Chronic pain syndrome Disc degeneration, lumbar Epicondylitis, lateral Fibromyalgia Hypothyroid Interstitial cystitis Interstitial cystitis Migraines Morbid obesity due to excess calories Morbidly obese Obstructive sleep apnea AISHWARYA on CPAP Restrictive lung disease Spinal stenosis of lumbar region Spondylosis, lumbar, with myelopathy Urinary retention Urinary retention Surgical History History of esophagogastroduodenoscopy (EGD) Hx of colonoscopy Family History Father Alcoholism Mother Leukemia Maternal Aunt Breast cancer Sister Depression Vertigo Family/Other Heart problem Diabetes Cancer Brother Atherosclerotic cardiovascular disease Cardiomegaly Social History Household Members: Family Household Members Other:: sister Alcohol intake: never Patient Tobacco Use Status: Never used Tobacco Second Hand Smoke Exposure: No Substance Use Type: Marijuana Current occupational status: disabled 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 Review of Systems Const All systems reviewed & are unremarkable except as noted in HPI and below Physical Exam Const General: cooperative, no acute distress, well developed and well groomed Nutritional Appearance: well nourished and obese morbidly obese Orientation/consciousness: oriented to person, oriented to place and oriented to time Limitations: No language barrier and ambulation with walker HEENT Head: Yes normocephalic and Yes atraumatic Eyes General: appearance normal, both eyes and all related structures Pupils: Equal, round and reactive pupils present Resp Effort & Inspection: normal respiratory effort and able to speak in complete sentences Auscultation: clear to auscultation bilaterally Cardio Jugular venous distension: no JVD GI Inspection: Yes Abdominal panniculus present and Yes obesity Back/Spine/Pelvis Thoracic/Lumbar Spine: No thoraco-lumbar ROM normal, Lasegue's sign negative bilateral, straight leg raise negative bilaterally, pain with thoraco-lumbar ROM, paraspinal muscle tenderness, thoraco-lumbar ROM limited, lumbar spinal tenderness and other (loading test is positive bilaterally) Neuro General: oriented to person, oriented to place, oriented to time and gait normal Cranial nerves: Yes Equal, round and reactive pupils present Extrem General: Yes normal to inspection Psych Appearance: grossly normal Speech and movement: Normal speech and movement present Affect: normal affect Attitude: cooperative Assessment & Plan Assessment & Plan (1) Morbidly obese: Code(s): E66.01 - Morbid (severe) obesity due to excess calories (2) Spinal stenosis of lumbar region: Code(s): M48.061 - Spinal stenosis, lumbar region without neurogenic claudication (3) Chronic pain syndrome: Code(s): G89.4 - Chronic pain syndrome (4) Morbid obesity due to excess calories: Code(s): E66.01 - Morbid (severe) obesity due to excess calories (5) Disc degeneration, lumbar: Code(s): M51.36 - Other intervertebral disc degeneration, lumbar region (6) Spondylosis of lumbar region without myelopathy or radiculopathy: Code(s): M47.816 - Spondylosis without myelopathy or radiculopathy, lumbar region Plan No issue of the prescription of the tizanidine 2 mg tid today. In the past I offered her spinal cord stimulation Grace in the attempt to alleviate her pain. She unfortunately is very hesitant to go for the trial. Bilateral medial branch block L3 L4 dorsal ramus L5 gave her short lived pain relief. However she would like to continue this treatment because it gives her several weeks of better mobility and less pain. We were planning to schedule this procedure under sedation however her chest pain is of concern with invoicing machine operator. Dr. Francisco need to give us a clearance for her to go for anesthesia. After that I will schedule her for an appointment for the procedure. Coding Level of Care Code Est Pt Level 3 (86819) Diagnoses Morbidly obese E66.01 Spinal stenosis of lumbar region M48.061 Chronic pain syndrome G89.4 Morbid obesity due to excess calories E66.01 Disc degeneration, lumbar M51.36 Spondylosis of lumbar region without myelopathy or radiculopathy M47.816
[2022-11-20 13:25] VITALS: BP 163/107; PULSE 81; O2SAT 83; BMI 55.5
== END 2022-11-20 13:35 | disposition home or self-care (01) ==
PROVIDERS: PCP Family Medicine; Visit Provider Anesthesiology
DX: M48.061 Spinal stenosis, lumbar region without neurogenic claudication (principal); G89.4 Chronic pain syndrome; M51.36 Other intervertebral disc degeneration, lumbar region; E66.01 Morbid (severe) obesity due to excess calories; M47.816 Spondylosis without myelopathy or radiculopathy, lumbar region
CPT/HCPCS: 99213

== ENCOUNTER → 2022-11-20 13:15 | Outpatient (BNVA) | payer OTHER, SELFPAY | PROVIDERS: PCP Family Medicine; Visit Provider Anesthesiology | DX: E66.01 Morbid (severe) obesity due to excess calories (principal); M48.061 Spinal stenosis, lumbar region without neurogenic claudication; M47.816 Spondylosis without myelopathy or radiculopathy, lumbar region; M51.36 Other intervertebral disc degeneration, lumbar region; G89.4 Chronic pain syndrome; Z68.43 Body mass index [BMI] 50.0-59.9, adult | CPT/HCPCS: 99212 ==

== ENCOUNTER 2022-11-27 13:48 | Outpatient (AMB) | payer OTHER, SELFPAY ==
--- NOTE | 2022-11-27 13:49 | MHC.OFFVIS ---
Intake Intake Visit Reasons: Botox planning (Seen by Dr. Taylor harden) Intake Note: Patient presents for botox planning/incontinence/frequency Urology Medications: Elmiron, Solifenacin Blood Thinner: none PVR: 58 ml's Infrastructure Administrator Required: No Accompanied by: Self / Same As Patient Allergies cefuroxime [From CEFTIN] Allergy (Unknown, Verified 11/27/22 14:21) HIVES Medication List - Last Reconciled 11/27/22 by TAMIKA Leung acetaminophen ER 650 mg PO BID albuterol sulfate 90 mcg/actuation 2 puffs inhalation Q6-8H PRN alcohol swabs (Alcohol Prep Pads) 0 pad topical betamethasone valerate 0.1% appl topical BID blood pressure test kit-large As directed blood sugar diagnostic (FreeStyle Lite Strips) As directed blood-glucose meter (FreeStyle Amite Lite kit) As directed cetirizine 10 mg PO DAILY cholecalciferol (vitamin D3) (Vitamin D3) 1 PO QPM clonazepam 0.5 mg PO BID PRN cyclobenzaprine 10 mg PO BEDTIME dulaglutide (Trulicity) 0.75 mg subcut QWEEK eluxadoline (Viberzi) 75 mg PO BID empagliflozin (Jardiance) 10 mg PO QAM escitalopram oxalate 20 mg PO DAILY fluticasone propionate 50 mcg/actuation 1 spray intranasal DAILY furosemide 40 mg PO DAILY gabapentin 400 mg PO TID 30 days hydralazine 100 mg PO BID hydrochlorothiazide 25 mg PO QAM hydrocortisone 2.5% (Anusol-HC) 1 applicator rectally 2 to 4 times a day PRN; 30 days ibuprofen 800 mg PO TID lancets (TRUEplus Lancets) As directed lanolin afseyyp-as-f.pet-ceres (Minerin Creme topical) appl topical BID PRN levothyroxine 75 mcg PO DAILY levothyroxine 200 mcg PO QAM prveeq-thtpbnmo-tnmrgjh 24,000-76,000 -120,000 unit (Creon) 2 caps PO QID loperamide 4 mg (2 x 2 mg) PO BID losartan 100 mg PO DAILY menthol-zinc oxide 0.44-20.6 % (Calmoseptine) 1 appl topical QID PRN metoclopramide HCl 1 tab tidac and 2 tabs qhs orally 4 times a day; mineral oil-hydrophil petrolat (petrolatum topical ointment) topical montelukast 10 mg PO BEDTIME naloxone 4 mg/actuation (Narcan) 1 spray intranasal Q2M PRN nystatin topical BID nystatin 1 appl topical BID 30 days ondansetron HCl 4 mg PO TID PRN pantoprazole 40 mg PO BID pentosan polysulfate sodium (Elmiron) 200 mg (2 x 100 mg) PO BID 90 days polyvinyl alcohol 1.4% 1 drp ophthalmic (eye) QID prazosin 2 mg PO BID solifenacin (Vesicare) 10 mg (2 x 5 mg) PO DAILY 90 days sumatriptan succinate 50 mg PO ONCE PRN tizanidine 2 mg PO TID tramadol 50 mg PO Q6H PRN verapamil ER 240 mg PO DAILY zolpidem 10 mg PO BEDTIME PRN HPI HPI Comments History of Present Illness Details Shereen is a pleasant 47 year old female patient of Dr. Parry. She has a past medical history of allergic rhinitis, diabetes, arthritis, chronic pain syndrome, lumbar disc degeneration, fibromyalgia, hypothyroidism, interstitial cystitis, migraines, morbid obesity, obstructive sleep apnea, restrictive lung disease, and spinal stenosis. She presents to the office today for follow-up of her interstitial cystitis and mixed urinary incontinence. When asked she reports to be doing and feeling well. She discusses her most recent trip to [place] over the last 2 months and being unable to undergo planned procedure with Dr. Simental as she was away. In review of patient's chart it appears she underwent an in office cystoscopy with Dr. Simental in July at which time recommendations were made for bladder Botox. She discusses now that she is back from [place] she would like to have the procedure performed. Discussed at length risks and benefits of bladder Botox. All questions were answered. She otherwise continues with primary urgency and frequency and is utilizing adult diapers daily. She reports to be using 3-5 per day. Discussed at length importance of weight loss as this can improve urinary symptoms as well as overall health and well-being. In office urinalysis results reviewed with the patient today. PVR 58 mL. Urinary urgency and frequency Prior therapy with Myrbetriq that reported to not be working Does feel improvement with 5 mg VESIcare [facility] - NAD Low PVR Cystoscopy performed - Minimal descensus on coughing at cystoscopy, Normal bladder Plan trial Botox PFSH Medical History Allergic rhinitis Arthritis Chronic pain syndrome Disc degeneration, lumbar Epicondylitis, lateral Fibromyalgia Hypothyroid Interstitial cystitis Interstitial cystitis Migraines Morbid obesity due to excess calories Morbidly obese Obstructive sleep apnea AISHWARYA on CPAP Restrictive lung disease Spinal stenosis of lumbar region Spondylosis, lumbar, with myelopathy Urinary retention Urinary retention Surgical History History of esophagogastroduodenoscopy (EGD) Hx of colonoscopy Family History Father Alcoholism Mother Leukemia Maternal Aunt Breast cancer Sister Depression Vertigo Family/Other Heart problem Diabetes Cancer Brother Atherosclerotic cardiovascular disease Cardiomegaly Social History Household Members: Family Household Members Other:: sister Alcohol intake: never Patient Tobacco Use Status: Never used Tobacco Second Hand Smoke Exposure: No Substance Use Type: Marijuana Current occupational status: disabled 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 Review of Systems Const Reports as per HPI Eyes Reports no additional complaints ENT Reports no additional complaints Card Reports as per HPI Resp Reports as per HPI (Patient reports compliance with CPAP machine) GI Reports no additional complaints Reports as per HPI Musc Reports as per HPI Neuro Reports no additional complaints Psych Reports as per HPI Endo Reports as per HPI Physical Exam Const General: cooperative, comfortable, no acute distress, well developed, alert and awake Nutritional Appearance: obese Orientation/consciousness: patient oriented x3 Limitations: ambulation with cane HEENT Other: hair loss Head: Yes normal to inspection, Yes normocephalic and Yes atraumatic Ears: hearing grossly normal bilaterally Eyes General: appearance normal, both eyes and all related structures Neck Neck: Yes normal visual inspection and Yes trachea midline Chest Chest palpation & inspection: normal inspection of the chest Resp Effort & Inspection: normal respiratory effort and able to speak in complete sentences Cardio Rate: regular rate GI Inspection: Yes Abdominal panniculus present General: Yes no CVA tenderness Back/Spine/Pelvis Back: no CVA tenderness Skin Other: Intertrigo noted to abdominal folds. Neuro General: patient oriented x3 Extrem General: Yes normal to inspection Psych Mental Status: mental status grossly normal Speech and movement: Normal speech and movement present and Clear speech present Affect: normal affect Attitude: cooperative Thought process: Normal thought process present Thought content: Normal thought content present Insight: Fair insight present (Psych) Judgement: Fair judgement present (Psych) Office Procedures Post Void Residual Post Residual Void Post Void Residual (PVR): 58 50025-[id number] Void Residual by ultrasound Results AMB Urinalysis, Automated UA Leukoctes 15 Koby/uL Last Edit by [employer] on 11/27/22 14:09 UA Nitrite Last Edit by [employer] on 11/27/22 14:09 UA Urobilinogen 0.2 mg/dL Last Edit by [employer] on 11/27/22 14:09 UA Protein 100 mg/dL Last Edit by [employer] on 11/27/22 14:09 UA pH 6.0 Last Edit by [employer] on 11/27/22 14:09 UA Blood 0 Gage/uL Last Edit by [employer] on 11/27/22 14:09 UA Specific [place] 1.030 Last Edit by [employer] on 11/27/22 14:09 UA Ketone Last Edit by [employer] on 11/27/22 14:09 UA Bilirubin 0 mg/dL Last Edit by [employer] on 11/27/22 14:09 UA Glucose 0 mg/dL Last Edit by [employer] on 11/27/22 14:09 Results Reviewed Results Reviewed: Laboratory Last Values Urine pH (Auto) 6.0 11/27/22 13:51 Specific [place] (Auto) 1.030 11/27/22 13:51 Urine Protein (Auto) 100 mg/dL 11/27/22 13:51 Glucose (UA)(Auto) 0 mg/dL 11/27/22 13:51 Urine Blood (Auto) 0 Gage/uL 11/27/22 13:51 Urine Bilirubin (Auto) 0 mg/dL 11/27/22 13:51 Urine Urobilinogen (Auto) 0.2 mg/dL 11/27/22 13:51 Leukocyte Esterase (Auto) 15 Koby/uL 11/27/22 13:51 Assessment & Plan Assessment & Plan (1) Fungal infection of skin of abdomen: Code(s): B36.9 - Superficial mycosis, unspecified (2) Urinary frequency: Code(s): R35.0 - Frequency of micturition (3) Mixed incontinence urge and stress: Code(s): N39.46 - Mixed incontinence (4) Nocturia more than twice per night: Code(s): R35.1 - Nocturia (5) Proteinuria: Code(s): R80.9 - Proteinuria, unspecified Plan: Risks, benefits and alternatives to therapy were discussed. These include but are not limited to infection, bleeding, damage to local organs and tissues, need for further interventions. ? Anesthetic risks regarding cardiac arrhythmia, blood clots, and potential mortality were discussed. The patient understands the typical recovery time and the outpatient nature of the procedure. After consideration of these risks the patient gives full informed consent and they wish to move ahead with the procedure. Cystoscopy with bladder Botox in Operating Room. Plan In office urinalysis results reviewed with the patient today; 2+ protein; will refer to Nephrology Discussed risks and benefits of cystoscopy bladder Botox at length All questions were answered Discussed and educated on the importance of weight loss to improve urinary symptoms as well as overall health and well-being PVR 58 mL Continue VESIcare 10 mg as patient reports somewhat improvement in urinary symptoms on this medication. Will schedule for cystoscopy bladder Botox as planned Follow-up per Dr. Simental's orders S/P cystoscopy bladder Botox in O.R. Orders: Orders AMB Urinalysis Automated Today Z13.9 - Encounter for screening, unspecified AMB Post Void Residual by ultrasound Today R35.0 - Frequency of micturition Referrals Nephrology Referral R80.9 - Proteinuria, unspecified Medications: New nystatin apply to affected area 2-3 times per day as discussed 1 appl topical BID 30 days 30 grams 0RF Patient Instructions: The patient had an opportunity to ask questions regarding the treatment plan. All questions were answered. Physical exam, labs, and imaging were discussed and reviewed in detail. As well as risks, benefits, and discussion of treatment choices. No major barriers to understanding were identified. The patient expressed understanding and agreement with the above treatment plan. The patient was made aware they should contact our office by phone for worsening of their current condition, the appearance of new symptoms, or with any questions or concerns. Compliance is encouraged with any medications and follow up testing that is ordered. It is a privilege to be allowed the opportunity to participate in? your urological care.? Again, if you have any questions or concerns If you have any questions or concerns please do not hesitate to contact me. The office is [phone]. This note is constructed using voice recognition software. While every effort has been made to ensure accuracy food clerk errors may have been included. Yours sincerely, TAMIKA Leung Coding Level of Care Code Est Pt Level 4 (61182) Diagnoses Fungal infection of skin of abdomen B36.9 Urinary frequency R35.0 Mixed incontinence urge and stress N39.46 Nocturia more than twice per night R35.1 Proteinuria R80.9 CPT Codes Post Residual Void - PVR CPT Code: 62438-Whgy Void Residual by ultrasound ([id number])
== END 2022-11-27 14:56 | disposition home or self-care (01) ==
PROVIDERS: PCP Family Medicine; Visit Provider Nurse Practitioner Family
DX: B36.9 Superficial mycosis, unspecified (principal); R35.0 Frequency of micturition; N39.46 Mixed incontinence; R35.1 Nocturia; R80.9 Proteinuria, unspecified; Z13.9 Encounter for screening, unspecified
CPT/HCPCS: 99214

== ENCOUNTER → 2022-11-27 13:48 | Outpatient (BNVA) | payer OTHER, SELFPAY | PROVIDERS: PCP Family Medicine; Visit Provider Nurse Practitioner Family | DX: R35.0 Frequency of micturition (principal); R35.1 Nocturia; B36.9 Superficial mycosis, unspecified; N39.46 Mixed incontinence; R80.9 Proteinuria, unspecified; N30.10 Interstitial cystitis (chronic) without hematuria; R33.9 Retention of urine, unspecified | CPT/HCPCS: 51798; 81003; 99212 ==

== ENCOUNTER 2023-01-02 10:10 | Outpatient (REF) | payer OTHER, SELFPAY ==
--- NOTE | ~2023-01-02 | XR_ITS ---
EXAMINATION: XR HIP, LEFT CLINICAL INFORMATION: Pain Bilateral leg pain, left worse than right COMPARISON: Same-day right hip TECHNIQUE: Two views of the left hip. FINDINGS: No fracture. Alignment is anatomic. There is minimal narrowing of the superior dorsal aspect of the cartilage space of the hip. Soft tissues are unremarkable. XR/XR hip LT min 2V IMPRESSION: Minimal osteoarthritis of the left hip.
--- NOTE | ~2023-01-02 | XR_ITS ---
EXAMINATION: XR HIP, RIGHT CLINICAL INFORMATION: Pain Right leg pain COMPARISON: Same-day left hip. TECHNIQUE: Two views of the right hip. FINDINGS: No fracture. Alignment is anatomic. There is minimal narrowing of the superior dorsal aspect of the cartilage space of the hip. Soft tissues are unremarkable. XR/XR hip RT min 2V IMPRESSION: Minimal osteoarthritis of the right hip.
[2023-01-02 11:15] LABS: MANUAL DIFF FLAG NO
[2023-01-02 11:35] LABS: Basophils Percent Auto 0.3 % (0-2); Eosinophils Absolute Auto 0.1 X10*3/uL (0.0-0.4); Eosinophils Percent Auto 0.7 % (0-4); Hematocrit 40.6 % (37.0-47.0); Hemoglobin 13.9 g/dl (12.0-16.0); Imm Gran Abs Auto 0.03 X10*3/uL (0.00-0.03); Imm Gran Pct Auto 0.3 % (0.0-0.4); Lymphocytes Absolute Auto 2.1 X10*3/uL (1.2-4.9); Lymphocytes Percent Auto 19.3 % (20-40); Mean Corpuscular HGB Conc 34.2 g/dl (31.0-35.0); Mean Corpuscular Hemoglobin 30.5 pg (27.0-33.0); Mean Platelet Volume 10.1 fL (9.4-12.3); Monocytes Absolute Auto 0.7 X10*3/uL (0.1-1.2); Monocytes Percent Auto 6.4 % (2-11); Neutrophils Absolute Auto 7.9 x10*3/uL (2.0-8.3); Platelet Count 308 X10*3/uL (160-400); Red Blood Count 4.56 X10*6/uL (4.20-5.50); White Blood Count 10.9 X10*3/uL (4.8-10.8)
[2023-01-02 12:08] LABS: Alanine Aminotransferase 15 U/L (0-31); Albumin Level 4.1 g/dL (3.5-5.0); Alkaline Phosphatase 62 U/L (39-117); Anion Gap 13 (12-20); Aspartate Amino Transferase 15 U/L (5-31); Bilirubin Direct 0.3 mg/dL (0.0-0.5); Bilirubin Total 0.7 mg/dL (0.0-1.0); Blood Urea Nitrogen 10 mg/dL (9-16); Calcium 9.5 mg/dL (8.4-10.2); Carbon Dioxide 22 mmol/L (22-29); Chloride 105 mmol/L (96-108); Cholesterol 131 mg/dL (<200); Estimated Glomerular Filt Rate > 60; Glucose Random 89 mg/dL (60-115); HDL Cholesterol 42 mg/dL (>40); LDL Cholesterol Calculated 69 mg/dL (<100); Potassium 3.7 mmol/L (3.3-5.1); Sodium 136 mmol/L (135-145); Total Protein 7.7 g/dL (6.5-8.0); Triglycerides 101 mg/dL (<150)
[2023-01-02 12:09] LABS: Estimated Average Glucose 105 mg/dL; Hemoglobin A1c % 5.3 % (<6.0)
[2023-01-02 12:13] LABS: Free T4 (Free Thyroxine) 1.06 ng/dL (0.71-1.85); Thyroid Stimulating Hormone 4.42 uIU/mL (0.32-4.0); Vitamin D 25-OH Total 19.7 ng/mL (>30)
[2023-01-02 13:11] LABS: Microalbum/Creatinine Ratio Ur 7.3 ug/mg cr (<30)
== END 2023-01-02 10:11 | disposition home or self-care (01) ==
LOC: HO.HHCL 10:10
PROVIDERS: Visit Provider Family Medicine
DX: E11.9 Type 2 diabetes mellitus without complications (principal); M79.604 Pain in right leg; M79.605 Pain in left leg; E55.9 Vitamin D deficiency, unspecified
CPT/HCPCS: 36415; 73502; 80048; 80061; 80076; 82043; 82306; 82570; 83036; 84439; 84443; 85025

== ENCOUNTER 2023-02-02 13:39 | Outpatient (AMB) | payer OTHER, SELFPAY ==
--- NOTE | 2023-02-02 13:44 | MHC.OFFVIS ---
Intake Intake Visit Reasons: 6 month pvr/H&P (02/05) Intake Note: Patient is Present for Follow Up H&P Urology Medication: Vesicare, Antibiotic Allergies: None Blood Thinners: None Pharmacy: [facility] Pharmacy PVR: 0ml Compliants: Patient states that she has been having severe bladder pain, She is currently taking Tramadol for the pain is not taking motrin due to upcoming surgery. Patient states that she has been having this pain for couple of days Allergies cefuroxime [From CEFTIN] Allergy (Unknown, Verified 03/14/23 12:58) HIVES HPI HPI Comments History of Present Illness Details Shereen is a pleasant 47 year old female patient of Dr. Parry. She has a past medical history of allergic rhinitis, diabetes, arthritis, chronic pain syndrome, lumbar disc degeneration, fibromyalgia, hypothyroidism, interstitial cystitis, migraines, morbid obesity, obstructive sleep apnea, restrictive lung disease, and spinal stenosis. S he presents to the office today for follow-up of her interstitial cystitis and mixed urinary incontinence. When asked she reports to be doing and feeling well. She discusses her most recent trip to [place] over the last 2 months and being unable to undergo planned procedure with Dr. Simental as she was away. In review of patient's chart it appears she underwent an in office cystoscopy with Dr. Simental in July at which time recommendations were made for bladder Botox. She discusses now that she is back from [place] she would like to have the procedure performed. Discussed at length risks and benefits of bladder Botox. All questions were answered. She otherwise continues with primary urgency and frequency and is utilizing adult diapers daily. She reports to be using 3-5 per day. Discussed at length importance of weight loss as this can improve urinary symptoms as well as overall health and well-being. In office urinalysis results reviewed with the patient today. PVR 58 mL. Urinary urgency and frequency Prior therapy with Myrbetriq that reported to not be working Does feel improvement with 5 mg VESIcare [facility] - NAD Low PVR Cystoscopy performed - Minimal descensus on coughing at cystoscopy, Normal bladder Plan trial Botox [facility] Medical History Hirsutism Varicose veins with pain Restless leg syndrome Congenital pulmonary arteriovenous malformation Urinary retention Epicondylitis, lateral Interstitial cystitis Spinal stenosis of lumbar region Chronic pain syndrome Disc degeneration, lumbar Spondylosis, lumbar, with myelopathy Obstructive sleep apnea Morbid obesity due to excess calories Interstitial cystitis Arthritis Fibromyalgia Migraines Hypothyroid Restrictive lung disease Allergic rhinitis AISHWARYA on CPAP Morbidly obese Surgical History Hx of cystoscopy Hx of colonoscopy History of esophagogastroduodenoscopy (EGD) Family History Father Alcoholism Mother Leukemia Maternal Aunt Breast cancer Sister Depression Vertigo Family/Other Heart problem Diabetes Cancer Brother Atherosclerotic cardiovascular disease Cardiomegaly Social History Household Members: Family Household Members Other:: sister Are you a primary adult daycare coordinator to a significant other at home: No Do you presently have visiting nurse or other home services: No Alcohol intake: never Comment: NONE Patient Tobacco Use Status: Never used Tobacco Second Hand Smoke Exposure: No Substance Use Type: Marijuana Current occupational status: disabled 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 Review of Systems Const Denies chills and Denies fever(s) Card Reports no additional complaints and Denies syncope Resp Denies cough GI Denies abdominal pain and Denies heartburn Reports as per HPI and Denies change in libido Neuro Denies syncope Psych Denies change in libido Endo Denies change in libido Physical Exam Const General: cooperative, healthy appearing, comfortable and no acute distress Orientation/consciousness: patient oriented x3 HEENT Face and sinus: Yes normal facial exam Mouth: moist mucous membranes Neck Neck: Yes normal visual inspection, Yes full ROM and Yes trachea midline Chest Chest palpation & inspection: normal inspection of the chest Resp Effort & Inspection: normal respiratory effort, able to speak in complete sentences and no respiratory distress GI Inspection: Yes normal to inspection Back/Spine/Pelvis Cervical Spine: normal cervical lordosis Thoracic/Lumbar Spine: thoracic and lumbar spine normal to inspection Skin General skin exam: no rashes or lesions noted Neuro General: patient oriented x3, gait normal, tone normal and moves all extremities Extrem General: Yes normal to inspection and Yes capillary refill normal Office Procedures Post Void Residual Post Residual Void Post Void Residual (PVR): 0 [id number] Void Residual by ultrasound Results AMB Urinalysis, Automated UA Leukoctes 0 Koby/uL Last Edit by Daija Carbajal, RMA on 02/02/23 14:02 UA Nitrite Negative Last Edit by Daija Carbajal, RMA on 02/02/23 14:02 UA Urobilinogen 1 mg/dL Last Edit by Daija Carbajal, RMA on 02/02/23 14:02 UA Protein 15 mg/dL Last Edit by Daija Carbajal, RMA on 02/02/23 14:02 UA pH 5.5 Last Edit by Daija Carbajal, RMA on 02/02/23 14:02 UA Blood 0 Gage/uL Last Edit by Daija Carbajal, RMA on 02/02/23 14:02 UA Specific [place] 1.030 Last Edit by Daija Carbajal, RMA on 02/02/23 14:02 UA Ketone Negative Last Edit by Daija Carbajal, RMA on 02/02/23 14:02 UA Bilirubin 0 mg/dL Last Edit by Daija Carbajal, RMA on 02/02/23 14:02 UA Glucose 0 mg/dL Last Edit by Daija Carbajal, A on 02/02/23 14:02 Results Reviewed Results Reviewed: Laboratory Last Values Urine pH (Auto) 5.5 02/02/23 13:47 Specific [place] (Auto) 1.030 02/02/23 13:47 Urine Protein (Auto) 15 mg/dL 02/02/23 13:47 Glucose (UA)(Auto) 0 mg/dL 02/02/23 13:47 Urine Ketones (Auto) Negative 02/02/23 13:47 Urine Blood (Auto) 0 Gage/uL 02/02/23 13:47 Urine Nitrite (Auto) Negative 02/02/23 13:47 Urine Bilirubin (Auto) 0 mg/dL 02/02/23 13:47 Urine Urobilinogen (Auto) 1 mg/dL 02/02/23 13:47 Leukocyte Esterase (Auto) 0 Koby/uL 02/02/23 13:47 Assessment & Plan Assessment & Plan (1) Urinary retention: Code(s): R33.9 - Retention of urine, unspecified Plan Plan for Botox Orders: Orders AMB Post Void Residual by ultrasound 02/02/23 R33.9 - Retention of urine, unspecified AMB Urinalysis Automated 02/02/23 Z13.9 - Encounter for screening, unspecified Patient Instructions: Imaging studies, laboratory and physical exam results were discussed and reviewed in detail. No major barriers to patient understanding were identified. An opportunity to ask questions regarding the treatment plan was provided. All questions were answered. The patient expressed understanding and agreement with the above treatment plan. The patient is aware they should contact our office by phone for worsening of their current condition or the appearance of new urologic symptoms. Compliance is encouraged with any medications and followup testing that is ordered. It is a privilege to participate in the urologic care of your patient. If you have any questions or concerns regarding treatment for the above conditions, or other urologic issues, please do not hesitate to contact me. The office telephone contact is [phone]. This note is constructed using voice recognition software. While every effort has been made to ensure accuracy associate product manager errors may have been included. Yours sincerely, Dr Wilfred Simetnal MD, [facility] - Urology Providers of Expert, Compassionate Care for the Genitourinary System Coding Level of Care Code Est Pt Level 3 (22196) Diagnoses Urinary retention R33.9 CPT Codes Post Residual Void - PVR CPT Code: 33152-Fqwi Void Residual by ultrasound ([id number])
== END 2023-02-02 14:17 | disposition home or self-care (01) ==
PROVIDERS: Visit Provider Urology
DX: R33.9 Retention of urine, unspecified (principal)
CPT/HCPCS: 99213

== ENCOUNTER → 2023-02-02 13:39 | Outpatient (BNVA) | payer OTHER, MEDICAID, SELFPAY | PROVIDERS: Visit Provider Urology | DX: R33.9 Retention of urine, unspecified (principal) | CPT/HCPCS: 51798; 81003; 99212 ==

== ENCOUNTER 2023-02-05 08:44 | Day surgery (SDC) | payer OTHER, SELFPAY ==
[2023-02-01 11:26] VITALS: BMI 56.7
[2023-02-05 09:54] VITALS: BP 152/93; PULSE 79; RESP 16; TEMP 36.3; O2SAT 97
--- NOTE | 2023-02-05 09:55 | HO.ANESPROP2 ---
FORMERLY [facility], LATER [facility] Active Problems Active Problems: All Active Problems (Updated 02/01/23 @ 11:49 by Mgaali Kendall RN) Proteinuria (Acute) Fungal infection of skin of abdomen (Acute) Diabetes mellitus (Acute) Urinary frequency (Acute) Spondylosis of lumbar region without myelopathy or radiculopathy (Acute) Patellofemoral arthralgia of right knee (Acute) Mixed incontinence urge and stress (Acute) Hemorrhoids (Acute) Obstructive sleep apnea (Acute) Hypothyroidism (Acute) Hypertension (Acute) Patellofemoral arthralgia of both knees (Acute) Urinary retention (Acute) Left lateral epicondylitis (Acute) Left forearm pain (Acute) Nocturia more than twice per night (Acute) Nausea and vomiting (Acute) Irritable bowel syndrome with diarrhea (Acute) Gastroparesis (Acute) GERD (gastroesophageal reflux disease) (Acute) Urinary retention (Acute) Epicondylitis, lateral (Acute) Interstitial cystitis (Acute) Spinal stenosis of lumbar region (Acute) Chronic pain syndrome (Acute) Disc degeneration, lumbar (Acute) Spondylosis, lumbar, with myelopathy (Acute) Obstructive sleep apnea (Acute) Morbid obesity due to excess calories (Acute) Restrictive lung disease (Acute) Allergic rhinitis (Acute) AISHWARYA on CPAP (Acute) Morbidly obese (Acute) Past Medical History Medical History Hirsutism Varicose veins with pain Restless leg syndrome Congenital pulmonary arteriovenous malformation Urinary retention Epicondylitis, lateral Interstitial cystitis Spinal stenosis of lumbar region Chronic pain syndrome Disc degeneration, lumbar Spondylosis, lumbar, with myelopathy Obstructive sleep apnea Morbid obesity due to excess calories Interstitial cystitis Arthritis Fibromyalgia Migraines Hypothyroid Restrictive lung disease Allergic rhinitis AISHWARYA on CPAP Morbidly obese Family History Family History Father Alcoholism Mother Leukemia Maternal Aunt Breast cancer Sister Depression Vertigo Family/Other Heart problem Diabetes Cancer Brother Atherosclerotic cardiovascular disease Cardiomegaly Family history of problems with anesthesia: No Surgical History Surgical History Hx of colonoscopy History of esophagogastroduodenoscopy (EGD) History of Problems with Anesthesia: No Social History Social History Household Members: Family Household Members Other:: sister Are you a primary housekeeper caregiver to a significant other at home: No Do you presently have visiting nurse or other home services: Yes ([employer]) Alcohol intake: never Patient Tobacco Use Status: Never used Tobacco Second Hand Smoke Exposure: No Use of substances other than those prescribed or required for medical reasons: No Substance Use Type: Marijuana Have you been hit, kicked, punched, or otherwise hurt by someone within the past year? 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 Meds Allergies Allergy/AdvReac Type Severity Reaction Status Date / Time cefuroxime [From CEFTIN] Allergy Unknown HIVES Verified 02/02/23 13:46 Home Medications Medication Instructions Recorded Confirmed Last Taken Type cetirizine 10 mg tablet 10 mg PO DAILY 03/02/20 02/01/23 Unknown History hydrochlorothiazide 25 mg tablet 25 mg PO QAM 03/02/20 02/01/23 Unknown History montelukast 10 mg tablet 10 mg PO BEDTIME 03/02/20 02/01/23 Unknown History clonazepam 0.5 mg tablet 0.5 mg PO BID PRN Anxiety 10/08/20 02/01/23 Unknown History polyvinyl alcohol 1.4 % eye drops 1 drp ophthalmic (eye) QID PRN Dry 10/08/20 02/01/23 Unknown History Eyes zolpidem 10 mg tablet 10 mg PO BEDTIME PRN Insomnia 10/08/20 02/01/23 Unknown History nystatin 100,000 unit/gram topical 1 appl topical BID 12/30/20 02/01/23 Unknown History powder betamethasone valerate 0.1 % 1 appl topical BID 05/24/21 02/01/23 Unknown History topical cream blood pressure test kit-large #1 ea 08/02/21 05/02/22 Unknown History lanolin alcohols-mineral 1 appl topical BID PRN Rash 08/02/21 02/01/23 Unknown History oil-w.petrolatum-ceresin topical cream (Minerin Creme topical) losartan 100 mg tablet 100 mg PO DAILY 08/02/21 02/01/23 Unknown History mineral oil-hydrophil petrolat 1 appl topical 08/02/21 05/10/22 Unknown History topical ointment (petrolatum topical ointment) albuterol sulfate 90 mcg/actuation 2 puff inhalation Q6-8H PRN 03/07/22 02/01/23 Unknown History aerosol inhaler Shortness Of Breath Or Wheezing cyclobenzaprine 10 mg tablet 10 mg PO BEDTIME 03/07/22 02/01/23 Unknown History furosemide 40 mg tablet 40 mg PO DAILY 03/07/22 02/01/23 Unknown History verapamil 240 mg 24 hr 240 mg PO DAILY 03/07/22 02/01/23 Unknown History capsule,extended release alcohol swabs (Alcohol Prep Pads) 0 pad topical 04/19/22 05/02/22 Unknown History blood sugar diagnostic (FreeStyle #10 ea 04/19/22 05/02/22 Unknown History Lite Strips) blood-glucose meter (FreeStyle #1 ea 04/19/22 05/02/22 Unknown History [place] Lite kit) lancets 33 gauge (TRUEplus Lancets) #100 ea 04/19/22 05/02/22 Unknown History levothyroxine 200 mcg tablet 200 mcg PO QAM 04/19/22 02/01/23 Unknown History levothyroxine 75 mcg tablet 75 mcg PO DAILY 04/19/22 02/01/23 Unknown History acetaminophen 650 mg 650 mg PO BID 05/10/22 02/01/23 Unknown History tablet,extended release naloxone 4 mg/actuation nasal 1 spray intranasal Q2M PRN Opiate 05/10/22 02/01/23 Unknown History spray (Narcan) Reversal cholecalciferol (vitamin D3) 50 50 mcg PO QPM 06/29/22 02/01/23 Unknown History mcg (2,000 unit) capsule (Vitamin D3) empagliflozin 10 mg tablet 10 mg PO QAM 06/29/22 02/01/23 Unknown History (Jardiance) tizanidine 2 mg tablet 2 mg PO TID 06/29/22 02/01/23 Unknown History tramadol 50 mg tablet 50 mg PO Q6H PRN pain 06/29/22 02/01/23 Unknown History dulaglutide 0.75 mg/0.5 mL 0.75 mg subcut QWEEK 07/27/22 02/01/23 Unknown History subcutaneous pen injector (Trulicity) escitalopram oxalate 20 mg tablet 20 mg PO DAILY 07/27/22 02/01/23 Unknown History fluticasone propionate 50 1 spray intranasal DAILY 07/27/22 02/01/23 Unknown History mcg/actuation nasal spray,suspension hydralazine 100 mg tablet 100 mg PO BID 07/27/22 02/01/23 Unknown History gabapentin 400 mg capsule 600 mg PO TID 02/01/23 02/01/23 Unknown History Exam Exam Date and Time: February 05, 2023 0955 Height,Weight and Vital Signs: Height 5 ft 1 in Weight 136.078 kg Airway Mallampati Class: III (full neck) TM Dist: >3cm Neck ROM: Full Loose/Missing/Broken Teeth: No Heart: RRR Lungs: CTA Assessment and Plan Assessment Anesthesia Assessment: Anesthesia Plan Discussed Final Anesthetic Review Family History of Problems with Anesthesia: No History of Problems with Anesthesia: No NPO: Yes ASA Class: III Final Preanesthetic Review: Meds/Allgs Chart Reviewed, Consent Obtained/Reviewed and Anes Risks/Benef Reviewed Patient Risk: Intermediate Procedure Risk: Low Anesthetic Plan Anesthetic Plan: MAC: Disposition: Standard PACU
[2023-02-05 10:00] LABS: UPreg QC Valid YES; Urine Pregnancy NEGATIVE (NEGATIVE)
[2023-02-05] MEDS: Lactated Ringers 1,000 ML 50 ML IVCONT (10:16)
[2023-02-05 10:26] LABS: Glucose, Whole Blood 110 mg/dL (60-115)
--- NOTE | 2023-02-05 12:22 | MHC.SHP ---
Pre-Procedural Eval Section A Date of Service: 02/05/23 The patient is an INPATIENT: No Changes since office visit: No Cold of Flu in the past 2 weeks, No New Medical Problems, No Changes in Medication and No Patient answered all questions The History & Physical has been completed within 30 days and I have reviewed it.: Yes Section B Chief Complaint: Frequency of micturition Allergies: Allergies Allergy/AdvReac Type Severity Reaction Status Date / Time cefuroxime [From CEFTIN] Allergy Unknown HIVES Verified 02/05/23 10:03 Plan Diagnosis/Plan: Unchanged (cysto, botox) I have reviewed the history and physical and performed a pertinent physical examination on my patient. No changes have occurred unless specified. Time Spent With Patient Time: Total time managing care of this patient today ____ minutes.
[2023-02-05 13:10] VITALS: BP 139/84; PULSE 81; RESP 18; TEMP 36.7; O2SAT 100
--- NOTE | 2023-02-05 13:12 | P.OP_ITS ---
Operative Note Operative Note Date of Service: 02/05/23 Narrative: PreOperative Diagnosis: Overactive bladder with failure of medications Post Operative Diagnosis: Overactive bladder with failure of medications Procedure: Cystoscopy with injection 100 units Botox intra detrusor muscle Surgeon: Dr Wilfred Simental Anesthesia: Sedation Indications for procedure: Is a very pleasant 47-year-old female. Has persistent urgency and frequency. Has failed oral medications. At office cystoscopy has effective emptying with minimal urethral rotation on cough. For cystoscopy and Botox injection. Is aware of the risks and benefits particularly related to urinary retention and possible infection. Procedure: After informed consent was verified the patient was brought to the operating room and placed in a supine position. Anesthesia was administered per protocol. Cystoscopy performed with 22 [place] cystoscope. Bladder was emptied of urine. Bladder was refilled. Using 100 units of Botox mixed in 10 cc of normal saline injections were placed at the back wall of the bladder. 0.5cc placed at each injection site. Injections were placed in a grid 5 across and for high. Injections were placed from the inferior to superior position. Trabeculations on the bladder wall with targeted for each injection site. Procedure was tolerated well. Patient was extubated and transferred in stable condition to the recovery area. Pathology: None Drains: None
[2023-02-05 13:15] VITALS: BP 139/83; PULSE 89; RESP 18; O2SAT 98
[2023-02-05] MEDS: Acetaminophen 325 MG TABLET 650 MG PO (13:22)
[2023-02-05] MEDS: Phenazopyridine HCL 100 MG TABLET PO (13:23)
[2023-02-05] MEDS: oxyCODONE HCl Immed Release 5 MG TABLET PO (13:23)
[2023-02-05 13:25] VITALS: BP 147/68; PULSE 79; RESP 18; TEMP 36.1; O2SAT 99
== END 2023-02-05 14:27 | disposition home or self-care (01) ==
PROVIDERS: Nurse Practitioner; PCP Family Medicine; Visit Provider Urology
PROC: 3E0K8GC Introduction of Other Therapeutic Substance into Genitourinary Tract, Via Natural or Artificial Opening Endoscopic (ICD-10-PCS; CPT 52287; principal; 2023-02-05 10:40)
DX: R35.0 Frequency of micturition (principal); N39.46 Mixed incontinence; R35.1 Nocturia; R80.9 Proteinuria, unspecified; E11.9 Type 2 diabetes mellitus without complications; I10 Essential (primary) hypertension; E66.01 Morbid (severe) obesity due to excess calories; K21.9 Gastro-esophageal reflux disease without esophagitis; G47.33 Obstructive sleep apnea (adult) (pediatric); Z99.89 Dependence on other enabling machines and devices; Z79.85 Long-term (current) use of injectable non-insulin antidiabetic drugs; Z79.899 Other long term (current) drug therapy
CPT/HCPCS: 52287; 81025; 82947; J0585; J1956; J2250; J3010

== ENCOUNTER → 2023-02-05 08:44 | Outpatient (BNV) | payer OTHER, SELFPAY | PROVIDERS: PCP Family Medicine; Visit Provider Urology | DX: N32.81 Overactive bladder (principal) | CPT/HCPCS: 52287 ==

== ENCOUNTER 2023-02-08 10:04 | Day surgery (SDC) | payer OTHER, SELFPAY ==
[2023-02-05 15:28] VITALS: BMI 55.4
--- NOTE | 2023-02-07 12:37 | HO.ANESPROP2 ---
Documented by User: Kelly Leon NP 02/07/23 12:45 HPI - Anesthesia Eval Consult details Narrative: 47yo F for Bilateral L3-L4 Dorsal Ramus L5 Therapeutic Medial Branch Block s/p cysto botox 02/05/23 with TIVA Anesthesia Pre-Procedure Meds Is the patient on any of the following meds?: Dulaglutide (Trulicity) PMFSH Active Problems Active Problems: All Active Problems (Updated 02/01/23 @ 11:49 by Magali Kendall RN) Proteinuria (Acute) Fungal infection of skin of abdomen (Acute) Diabetes mellitus (Acute) Urinary frequency (Acute) Spondylosis of lumbar region without myelopathy or radiculopathy (Acute) Patellofemoral arthralgia of right knee (Acute) Mixed incontinence urge and stress (Acute) Hemorrhoids (Acute) Obstructive sleep apnea (Acute) Hypothyroidism (Acute) Hypertension (Acute) Patellofemoral arthralgia of both knees (Acute) Urinary retention (Acute) Left lateral epicondylitis (Acute) Left forearm pain (Acute) Nocturia more than twice per night (Acute) Nausea and vomiting (Acute) Irritable bowel syndrome with diarrhea (Acute) Gastroparesis (Acute) GERD (gastroesophageal reflux disease) (Acute) Urinary retention (Acute) Epicondylitis, lateral (Acute) Interstitial cystitis (Acute) Spinal stenosis of lumbar region (Acute) Chronic pain syndrome (Acute) Disc degeneration, lumbar (Acute) Spondylosis, lumbar, with myelopathy (Acute) Obstructive sleep apnea (Acute) Morbid obesity due to excess calories (Acute) Restrictive lung disease (Acute) Allergic rhinitis (Acute) AISHWARYA on CPAP (Acute) Morbidly obese (Acute) Past Medical History Medical History Hirsutism Varicose veins with pain Restless leg syndrome Congenital pulmonary arteriovenous malformation Urinary retention Epicondylitis, lateral Interstitial cystitis Spinal stenosis of lumbar region Chronic pain syndrome Disc degeneration, lumbar Spondylosis, lumbar, with myelopathy Obstructive sleep apnea Morbid obesity due to excess calories Interstitial cystitis Arthritis Fibromyalgia Migraines Hypothyroid Restrictive lung disease Allergic rhinitis AISHWARYA on CPAP Morbidly obese Family History Family History Father Alcoholism Mother Leukemia Maternal Aunt Breast cancer Sister Depression Vertigo Family/Other Heart problem Diabetes Cancer Brother Atherosclerotic cardiovascular disease Cardiomegaly Family history of problems with anesthesia: No Surgical History Surgical History Hx of cystoscopy Hx of colonoscopy History of esophagogastroduodenoscopy (EGD) History of Problems with Anesthesia: No Social History Social History (Updated 02/08/23 @ 11:24 by Elaina Aguirre MD) Household Members: Family Household Members Other:: sister Are you a primary pediatric acute care unit nurse to a significant other at home: No Do you presently have visiting nurse or other home services: No Alcohol intake: never Patient Tobacco Use Status: Never used Tobacco Second Hand Smoke Exposure: No Substance Use Type: Marijuana Current occupational status: disabled 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 Meds Allergies Allergy/AdvReac Type Severity Reaction Status Date / Time cefuroxime [From CEFTIN] Allergy Unknown HIVES Verified 02/08/23 10:33 Home Medications Medication Instructions Recorded Confirmed Last Taken Type cetirizine 10 mg tablet 10 mg PO DAILY 03/02/20 02/05/23 02/04/23 History hydrochlorothiazide 25 mg tablet 25 mg PO QAM 03/02/20 02/05/23 02/04/23 History montelukast 10 mg tablet 10 mg PO BEDTIME 03/02/20 02/05/23 02/04/23 History clonazepam 0.5 mg tablet 0.5 mg PO BID PRN Anxiety 10/08/20 02/05/23 02/04/23 History polyvinyl alcohol 1.4 % eye drops 1 drp ophthalmic (eye) QID PRN Dry 10/08/20 02/05/23 Unknown History Eyes zolpidem 10 mg tablet 10 mg PO BEDTIME PRN Insomnia 10/08/20 02/05/23 02/04/23 History nystatin 100,000 unit/gram topical 1 appl topical BID 12/30/20 02/05/23 Unknown History powder betamethasone valerate 0.1 % 1 appl topical BID 05/24/21 02/05/23 Unknown History topical cream blood pressure test kit-large #1 ea 08/02/21 05/02/22 Unknown History lanolin alcohols-mineral 1 appl topical BID PRN Rash 08/02/21 02/05/23 Unknown History oil-w.petrolatum-ceresin topical cream (Minerin Creme topical) losartan 100 mg tablet 100 mg PO DAILY 08/02/21 02/05/23 02/04/23 History mineral oil-hydrophil petrolat 1 appl topical DAILY 08/02/21 02/05/23 Unknown History topical ointment (petrolatum topical ointment) albuterol sulfate 90 mcg/actuation 2 puff inhalation Q6-8H PRN 03/07/22 02/05/23 Unknown History aerosol inhaler Shortness Of Breath Or Wheezing cyclobenzaprine 10 mg tablet 10 mg PO BEDTIME 03/07/22 02/05/23 02/04/23 History furosemide 40 mg tablet 40 mg PO DAILY 03/07/22 02/05/23 02/04/23 History verapamil 240 mg 24 hr 240 mg PO DAILY 03/07/22 02/05/23 02/04/23 History capsule,extended release alcohol swabs (Alcohol Prep Pads) 0 pad topical 04/19/22 05/02/22 Unknown History blood sugar diagnostic (FreeStyle #10 ea 04/19/22 05/02/22 Unknown History Lite Strips) blood-glucose meter (FreeStyle #1 ea 04/19/22 05/02/22 Unknown History [place] Lite kit) lancets 33 gauge (TRUEplus Lancets) #100 ea 04/19/22 05/02/22 Unknown History levothyroxine 200 mcg tablet 200 mcg PO QAM 04/19/22 02/05/23 02/04/23 History levothyroxine 75 mcg tablet 75 mcg PO DAILY 04/19/22 02/05/23 02/04/23 History acetaminophen 650 mg 650 mg PO BID 05/10/22 02/05/23 Unknown History tablet,extended release naloxone 4 mg/actuation nasal 1 spray intranasal Q2M PRN Opiate 05/10/22 02/05/23 Unknown History spray (Narcan) Reversal cholecalciferol (vitamin D3) 50 50 mcg PO QPM 06/29/22 02/05/23 02/04/23 History mcg (2,000 unit) capsule (Vitamin D3) empagliflozin 10 mg tablet 10 mg PO QAM 06/29/22 02/05/23 02/01/23 History (Jardiance) tizanidine 2 mg tablet 2 mg PO TID 06/29/22 02/05/23 02/04/23 History tramadol 50 mg tablet 50 mg PO Q6H PRN pain 06/29/22 02/05/23 02/03/23 History dulaglutide 0.75 mg/0.5 mL 0.75 mg subcut QWEEK 07/27/22 02/05/23 01/27/23 History subcutaneous pen injector (Trulicity) escitalopram oxalate 20 mg tablet 20 mg PO DAILY 07/27/22 02/05/23 02/04/23 History fluticasone propionate 50 1 spray intranasal DAILY 07/27/22 02/05/23 Unknown History mcg/actuation nasal spray,suspension hydralazine 100 mg tablet 100 mg PO BID 07/27/22 02/05/23 02/04/23 History gabapentin 400 mg capsule 600 mg PO TID 02/01/23 02/05/23 02/04/23 History Exam Exam Date and Time: February 07, 2023 1237 Height,Weight and Vital Signs: Height 5 ft 1 in Weight 132.903 kg Pertinent Lab Results Pertinent Lab Results: Laboratory Tests 01/02/23 10:15 WBC 10.9 H Hgb 13.9 Hct 40.6 Plt Count 308 Sodium 136 Potassium 3.7 Chloride 105 Carbon Dioxide 22 BUN 10 Creatinine 0.75 Assessment and Plan Assessment Anesthesia Assessment: Chart Reviewed Final Anesthetic Review Family History of Problems with Anesthesia: No History of Problems with Anesthesia: No Documented by User: Elaina Aguirre MD 02/08/23 11:24 HPI - Anesthesia Eval Consult details Narrative: 47yo F for Bilateral L3-L4 Dorsal Ramus L5 Therapeutic Medial Branch Block s/p cysto botox 02/05/23 with TIVA On trulicity. Last dose 01/27/23 Anesthesia Pre-Procedure Meds If Yes to any meds - educate patient: Pt education - increased risk of aspiration PMFSH Active Problems Active Problems: All Active Problems (Updated 02/08/23 @ 11:09 by Elaina Aguirre MD) Proteinuria (Acute) Fungal infection of skin of abdomen (Acute) Diabetes mellitus (Acute) Urinary frequency (Acute) Spondylosis of lumbar region without myelopathy or radiculopathy (Acute) Patellofemoral arthralgia of right knee (Acute) Mixed incontinence urge and stress (Acute) Hemorrhoids (Acute) Obstructive sleep apnea (Acute) Hypothyroidism (Acute) Hypertension (Acute) Patellofemoral arthralgia of both knees (Acute) Urinary retention (Acute) Left lateral epicondylitis (Acute) Left forearm pain (Acute) Nocturia more than twice per night (Acute) Nausea and vomiting (Acute) Irritable bowel syndrome with diarrhea (Acute) Gastroparesis (Acute) GERD (gastroesophageal reflux disease) (Acute) Urinary retention (Acute) Epicondylitis, lateral (Acute) Interstitial cystitis (Acute) Spinal stenosis of lumbar region (Acute) Chronic pain syndrome (Acute) Disc degeneration, lumbar (Acute) Spondylosis, lumbar, with myelopathy (Acute) Obstructive sleep apnea (Acute) Morbid obesity due to excess calories (Acute) Restrictive lung disease (Acute) Allergic rhinitis (Acute) AISHWARYA on CPAP (Acute) Morbidly obese (Acute) Past Medical History Medical History Hirsutism Varicose veins with pain Restless leg syndrome Congenital pulmonary arteriovenous malformation Urinary retention Epicondylitis, lateral Interstitial cystitis Spinal stenosis of lumbar region Chronic pain syndrome Disc degeneration, lumbar Spondylosis, lumbar, with myelopathy Obstructive sleep apnea Morbid obesity due to excess calories Interstitial cystitis Arthritis Fibromyalgia Migraines Hypothyroid Restrictive lung disease Allergic rhinitis AISHWARYA on CPAP Morbidly obese Family History Family History Father Alcoholism Mother Leukemia Maternal Aunt Breast cancer Sister Depression Vertigo Family/Other Heart problem Diabetes Cancer Brother Atherosclerotic cardiovascular disease Cardiomegaly Surgical History Surgical History Hx of cystoscopy Hx of colonoscopy History of esophagogastroduodenoscopy (EGD) Social History Social History (Updated 02/08/23 @ 11:24 by Elaina Aguirre MD) Household Members: Family Household Members Other:: sister Are you a primary pediatric acute care unit nurse to a significant other at home: No Do you presently have visiting nurse or other home services: No Alcohol intake: never Patient Tobacco Use Status: Never used Tobacco Second Hand Smoke Exposure: No Substance Use Type: Marijuana Current occupational status: disabled 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 Meds Allergies Allergy/AdvReac Type Severity Reaction Status Date / Time cefuroxime [From CEFTIN] Allergy Unknown HIVES Verified 02/08/23 10:33 Home Medications Medication Instructions Recorded Confirmed Last Taken Type cetirizine 10 mg tablet 10 mg PO DAILY 03/02/20 02/05/23 02/04/23 History hydrochlorothiazide 25 mg tablet 25 mg PO QAM 03/02/20 02/05/23 02/04/23 History montelukast 10 mg tablet 10 mg PO BEDTIME 03/02/20 02/05/23 02/04/23 History clonazepam 0.5 mg tablet 0.5 mg PO BID PRN Anxiety 10/08/20 02/05/23 02/04/23 History polyvinyl alcohol 1.4 % eye drops 1 drp ophthalmic (eye) QID PRN Dry 10/08/20 02/05/23 Unknown History Eyes zolpidem 10 mg tablet 10 mg PO BEDTIME PRN Insomnia 10/08/20 02/05/23 02/04/23 History nystatin 100,000 unit/gram topical 1 appl topical BID 12/30/20 02/05/23 Unknown History powder betamethasone valerate 0.1 % 1 appl topical BID 05/24/21 02/05/23 Unknown History topical cream blood pressure test kit-large #1 ea 08/02/21 05/02/22 Unknown History lanolin alcohols-mineral 1 appl topical BID PRN Rash 08/02/21 02/05/23 Unknown History oil-w.petrolatum-ceresin topical cream (Minerin Creme topical) losartan 100 mg tablet 100 mg PO DAILY 08/02/21 02/05/23 02/04/23 History mineral oil-hydrophil petrolat 1 appl topical DAILY 08/02/21 02/05/23 Unknown History topical ointment (petrolatum topical ointment) albuterol sulfate 90 mcg/actuation 2 puff inhalation Q6-8H PRN 03/07/22 02/05/23 Unknown History aerosol inhaler Shortness Of Breath Or Wheezing cyclobenzaprine 10 mg tablet 10 mg PO BEDTIME 03/07/22 02/05/23 02/04/23 History furosemide 40 mg tablet 40 mg PO DAILY 03/07/22 02/05/23 02/04/23 History verapamil 240 mg 24 hr 240 mg PO DAILY 03/07/22 02/05/23 02/04/23 History capsule,extended release alcohol swabs (Alcohol Prep Pads) 0 pad topical 04/19/22 05/02/22 Unknown History blood sugar diagnostic (FreeStyle #10 ea 04/19/22 05/02/22 Unknown History Lite Strips) blood-glucose meter (FreeStyle #1 ea 04/19/22 05/02/22 Unknown History [place] Lite kit) lancets 33 gauge (TRUEplus Lancets) #100 ea 04/19/22 05/02/22 Unknown History levothyroxine 200 mcg tablet 200 mcg PO QAM 04/19/22 02/05/23 02/04/23 History levothyroxine 75 mcg tablet 75 mcg PO DAILY 04/19/22 02/05/23 02/04/23 History acetaminophen 650 mg 650 mg PO BID 05/10/22 02/05/23 Unknown History tablet,extended release naloxone 4 mg/actuation nasal 1 spray intranasal Q2M PRN Opiate 05/10/22 02/05/23 Unknown History spray (Narcan) Reversal cholecalciferol (vitamin D3) 50 50 mcg PO QPM 06/29/22 02/05/23 02/04/23 History mcg (2,000 unit) capsule (Vitamin D3) empagliflozin 10 mg tablet 10 mg PO QAM 06/29/22 02/05/23 02/01/23 History (Jardiance) tizanidine 2 mg tablet 2 mg PO TID 06/29/22 02/05/23 02/04/23 History tramadol 50 mg tablet 50 mg PO Q6H PRN pain 06/29/22 02/05/23 02/03/23 History dulaglutide 0.75 mg/0.5 mL 0.75 mg subcut QWEEK 07/27/22 02/05/23 01/27/23 History subcutaneous pen injector (Trulicity) escitalopram oxalate 20 mg tablet 20 mg PO DAILY 07/27/22 02/05/23 02/04/23 History fluticasone propionate 50 1 spray intranasal DAILY 07/27/22 02/05/23 Unknown History mcg/actuation nasal spray,suspension hydralazine 100 mg tablet 100 mg PO BID 07/27/22 02/05/23 02/04/23 History gabapentin 400 mg capsule 600 mg PO TID 02/01/23 02/05/23 02/04/23 History Exam Height,Weight and Vital Signs: Height 5 ft 1 in Weight 132.903 kg Vital Signs Temp Pulse Resp BP Pulse Ox O2 Del Method 02/08/23 10:32 98.1 F 97 18 128/86 96 Room Air Pertinent Lab Results Pertinent Lab Results: Laboratory Tests 01/02/23 10:15 WBC 10.9 H Hgb 13.9 Hct 40.6 Plt Count 308 Sodium 136 Potassium 3.7 Chloride 105 Carbon Dioxide 22 BUN 10 Creatinine 0.75 Lab Results 02/08/23 02/08/23 Range/Units 09:45 10:27 POC Glucose 147 H (60-115) mg/dL Urine Test NEGATIVE (NEGATIVE) Airway Mallampati Class: III (Short neck) TM Dist: >3cm Neck ROM: Full Loose/Missing/Broken Teeth: No (Denies broken, loose, missing teeth) Heart: RRR Lungs: CTAB. Diminished posteriorly. No wheezing Assessment and Plan Assessment Anesthesia Assessment: Anesthesia Plan Discussed Final Anesthetic Review NPO: Yes ASA Class: III Final Preanesthetic Review: No Changes in Pt Med Stat, Meds/Allgs Chart Reviewed, Consent Obtained/Reviewed and Anes Risks/Benef Reviewed Patient Risk: Intermediate Procedure Risk: Low Assessment/Block/Sedation in SS: Assess/Block/Sedation-SS Anesthetic Plan Anesthetic Plan: MAC: Disposition: Standard PACU
--- NOTE | 2023-02-08 | ECG_ITS ---
Test Reason : TACHYCARDIA Blood Pressure : / mmHG Vent. Rate : 072 BPM Atrial Rate : 072 BPM P-R Int : 150 ms QRS Dur : 082 ms QT Int : 382 ms P-R-T Axes : 041 035 022 degrees QTc Int : 418 ms Normal sinus rhythm Low voltage QRS ST elevation in Inferior leads Lateral leads Abnormal ECG When compared with ECG of 10-AUG-2021 19:20, Vent. rate has decreased BY 36 BPM Non-specific change in ST segment in Lateral leads Referred By: Jayce Wright Electronically Signed By:ANNIE ROJAS MD
--- NOTE | ~2023-02-08 | FL_ITS ---
EXAMINATION: XR FLUOROSCOPY WITH IMAGES CLINICAL INFORMATION: L3-L4-DRL5 TMBB COMPARISON: None available. TECHNIQUE: Fluoroscopy Supervised By: Dr. Jayce Wright. Fluoroscopy Time: 0.7 minutes. Cumulative Dose: 40.4 mGy. DAP: 0.654 Gycm2. Images: 6. FINDINGS: Images demonstrate needle placement and contrast injection adjacent to the bilateral lateral L3, L4 and L5 vertebrae FL/FL guidance in OR IMPRESSION: Fluoroscopy guidance for pain management procedure
[2023-02-08 10:32] VITALS: BP 128/86; PULSE 97; RESP 18; TEMP 36.7; O2SAT 96
[2023-02-08 10:37] LABS: UPreg QC Valid YES; Urine Pregnancy NEGATIVE (NEGATIVE)
[2023-02-08 10:38] LABS: Glucose, Whole Blood 147 mg/dL (60-115)
[2023-02-08] MEDS: Lactated Ringers 1,000 ML 100 ML IVCONT (10:58)
--- NOTE | 2023-02-08 12:04 | MHC.SHP ---
Pre-Procedural Eval Section A Date of Service: 02/08/23 The patient is an INPATIENT: No Changes since office visit: Yes Patient answered all questions The History & Physical has been completed within 30 days and I have reviewed it.: No Section B Chief Complaint: Spondylosis without myelopathy or radiculopathy, Details of Present Illness: Spondylosis without myelopathy or radiculopathy Relevant Family History (Specify if Yes): No Relevant Social History: None Present Medications: None Medical History: Significant History History of Previous Operations: No relevant previous surgery Allergies: Allergies Allergy/AdvReac Type Severity Reaction Status Date / Time cefuroxime [From CEFTIN] Allergy Unknown HIVES Verified 02/08/23 10:33 Review of Systems Sugical H&P ROS: Negative: Cardiovascular, Respiratory, Neurological, Psychiatric, Hem-Onc, Allergic/Immunologic, Gastrointestinal, Genitourinary, Integumentary, Endocrine and Eyes/Ears/Nose/Throat and Yes, Specify: Constitution (Morbid obesity) and Musculoskeletal (spondylosis lumbar ) Exam Surgical H&P Exam: Normal: HEENT, Normal: Heart, Normal: Lungs, Normal: Extremities, Normal: Skin and Normal: Neurological and Significant Findings: Abdomen (enlarged due to fat) Plan Diagnosis/Plan: Unchanged I have reviewed the history and physical and performed a pertinent physical examination on my patient. No changes have occurred unless specified. Time Spent With Patient Time: Total time managing care of this patient today ___5_ minutes.
--- NOTE | 2023-02-08 12:12 | W.PM.OPN ---
Operative Note Operative Note Date of Service: 02/08/23 Narrative: Informed consent was explained to the patient. All questions were explained and? answered.? The patient was taken inside the operating room where she was positioned prone on the operating table.? [employer] monitors were applied.? Patient was deeply sedated. ?Time-out was performed delineating correct site, side, the nature of the procedure, patient's allergy, preoperative antibiotic if needed.? All operating room staff was participating in OR time-out procedure. ? The lower back was prepped with ChloraPrep and draped with sterile towels.? Sterilely draped C-arm was brought over the operating field and sq picture of L3, L4-and L5 vertebra and S1 AREA were delineated on the screen.? Point of interest were delineated as connection of superior articular process ofthe L3, L4 and L5 vertebra bilaterally with corresponding transverse processes as well as connection of the sacral alae bilaterally with superior articular process of S1.? The projection of the point of interest to the skin were injected with the small amount of local anesthetic lidocaine 2% 1-1.5 cc.? After that 22 gauge 5 inch spinal needle was driven sequentially to the points of interest in tunnel vision fashion. After needles gently contacted the bone at the point of interests the needle was injected with small amount of the contrast.? The injection of the contrast did not demonstrate any intravascular or intrathecal spread of the contrast.? After that injection of the? bupivacaine 0.5%-1cc mixed with Kenalog was performed at each needle location. Total dose of Kenalog was 40 mg. ? Upon completion of the injections? needle was? removed and sterile Band-Aids were applied.? The? patient was awaken and taken outside of the operating room to recovery room where she recovered uneventfully.? She went home without immediate complications. ?
--- NOTE | 2023-02-08 12:55 | PM.OP ---
Brief Operative Note Date of Service: 02/08/23 Pre-op diagnosis: spondylosis lumbar without myelopathy or radiculopathy Post-op diagnosis: same Procedure: Therapeutic MBB L3- L4- DRL5 Surgeon: Jayce Wright MD Anesthesia: MAC Was an Channel Marketing Program Manager used for this Procedure?: No Estimated blood loss (mL): 1 Condition: stable Disposition: PACU
[2023-02-08 13:00] VITALS: BP 120/78; PULSE 91; RESP 18; TEMP 36.6; O2SAT 99
[2023-02-08 13:15] VITALS: BP 122/61; PULSE 70; RESP 18; O2SAT 99
[2023-02-08 13:30] VITALS: BP 128/74; PULSE 69; RESP 20; O2SAT 94
[2023-02-08 13:45] VITALS: BP 132/74; PULSE 93; RESP 22; TEMP 36.6; O2SAT 100
== END 2023-02-08 14:23 | disposition home or self-care (01) ==
PROVIDERS: Nurse Practitioner; PCP Family Medicine; Visit Provider Anesthesiology
PROC: (CPT 64493; principal; 2023-02-08 12:20)
DX: M47.816 Spondylosis without myelopathy or radiculopathy, lumbar region (principal); G89.4 Chronic pain syndrome; M48.061 Spinal stenosis, lumbar region without neurogenic claudication; M51.36 Other intervertebral disc degeneration, lumbar region; M79.7 Fibromyalgia; I10 Essential (primary) hypertension; I83.893 Varicose veins of bilateral lower extremities with other complications; E66.01 Morbid (severe) obesity due to excess calories; Z68.43 Body mass index [BMI] 50.0-59.9, adult; J30.9 Allergic rhinitis, unspecified; G47.33 Obstructive sleep apnea (adult) (pediatric); Z99.89 Dependence on other enabling machines and devices; Z79.899 Other long term (current) drug therapy; Z88.1 Allergy status to other antibiotic agents; Z79.84 Long term (current) use of oral hypoglycemic drugs
CPT/HCPCS: 64493; 64494; 81025; 82947; 93005; J2250; J2765; J2795; J3301; Q9967

== ENCOUNTER → 2023-02-08 10:04 | Outpatient (BNV) | payer OTHER, SELFPAY | PROVIDERS: PCP Family Medicine; Visit Provider Anesthesiology | DX: M47.816 Spondylosis without myelopathy or radiculopathy, lumbar region (principal) | CPT/HCPCS: 64493; 64494 ==

== ENCOUNTER 2023-02-13 10:02 | Outpatient (REF) | payer OTHER, SELFPAY ==
--- NOTE | ~2023-02-13 | XR_ITS ---
EXAMINATIONS: XR STANDING VIEW OF KNEES, BILATERAL XR KNEE, LEFT CLINICAL INFORMATION: Pain in unspecified knee. COMPARISON: 11/17/2022. TECHNIQUE: AP standing view of bilateral knees. [place] and lateral views left knee. FINDINGS: Right Knee: AP view of the right knee demonstrate medial marginal osteophytes with joint space narrowing. Left Knee: Small tricompartmental osteophytes. Mild medial joint space narrowing. Possible joint effusion. XR/XR knee standing BI IMPRESSION: Mild degenerative changes bilateral knees, left greater than right.
--- NOTE | ~2023-02-13 | XR_ITS ---
EXAMINATIONS: XR STANDING VIEW OF KNEES, BILATERAL XR KNEE, LEFT CLINICAL INFORMATION: Pain in unspecified knee. COMPARISON: 11/17/2022. TECHNIQUE: AP standing view of bilateral knees. [place] and lateral views left knee. FINDINGS: Right Knee: AP view of the right knee demonstrate medial marginal osteophytes with joint space narrowing. Left Knee: Small tricompartmental osteophytes. Mild medial joint space narrowing. Possible joint effusion. XR/XR knee LT 2V IMPRESSION: Mild degenerative changes bilateral knees, left greater than right.
== END 2023-02-13 10:03 | disposition home or self-care (01) ==
LOC: HO.HOSX 10:02
PROVIDERS: Visit Provider Physician Assistant
DX: M22.2X2 Patellofemoral disorders, left knee (principal); M25.562 Pain in left knee; M22.2X1 Patellofemoral disorders, right knee; E11.9 Type 2 diabetes mellitus without complications
CPT/HCPCS: 20610; 73560; 73565; 99212; J1020

== ENCOUNTER 2023-02-13 13:35 | Outpatient (AMB) | payer OTHER, SELFPAY ==
--- NOTE | 2023-02-13 13:48 | A.OFFVIS_ITS ---
Intake Vital Signs 02/13/23 13:53 Height 5 ft 1 in Intake Visit Reasons: OV-Lt Knee pain after fall Intake Note: Shereen is a 47 year old female who present today for a evaluation for her left knee pain, DOI 02/05/23. Patient reports when was going down the stairs and her knee gave out and she slipped/fell down the stairs. Her pain is on top of the knee cap. Hx of 3+ months of taking Motrin and Tylenol with no relief. Allergies cefuroxime [From CEFTIN] Allergy (Unknown, Verified 02/13/23 13:53) HIVES HPI OV-Lt Knee pain after fall HPI Details 47-year-old female who presents in the [facility] today for a follow up of left knee pain. The patient had a cortisone injection in the bilateral knees on 11/17/2022. She reports she recently fall, which occurred on 02/05/2023, where the left knee gave out and she slipped and fell down the stairs. She states the pain is on the top of her knee cap. Patient has a history of taking Motrin and Tylenol for 3+ months with no relief. Patient has a significant history of diabetes mellitus. [facility], [facility] Medical History Hirsutism Varicose veins with pain Restless leg syndrome Congenital pulmonary arteriovenous malformation Urinary retention Epicondylitis, lateral Interstitial cystitis Spinal stenosis of lumbar region Chronic pain syndrome Disc degeneration, lumbar Spondylosis, lumbar, with myelopathy Obstructive sleep apnea Morbid obesity due to excess calories Interstitial cystitis Arthritis Fibromyalgia Migraines Hypothyroid Restrictive lung disease Allergic rhinitis AISHWARYA on CPAP Morbidly obese Surgical History Hx of cystoscopy Hx of colonoscopy History of esophagogastroduodenoscopy (EGD) Family History Father Alcoholism Mother Leukemia Maternal Aunt Breast cancer Sister Depression Vertigo Family/Other Heart problem Diabetes Cancer Brother Atherosclerotic cardiovascular disease Cardiomegaly Social History (Updated 02/08/23 @ 11:24 by Elaina Aguirre MD) Household Members: Family Household Members Other:: sister Are you a primary home care provider to a significant other at home: No Do you presently have visiting nurse or other home services: No Alcohol intake: never Patient Tobacco Use Status: Never used Tobacco Second Hand Smoke Exposure: No Substance Use Type: Marijuana Current occupational status: disabled 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 Tenderness along the medial joint line. ROM full with crepitus. Negative Steinmans. No ligamentous laxity. NVI. Office Procedures Joint Injection/Drain Joint Injection/Drain Primary Site: left knee Prep: site was prepped using aseptic technique, ethochloride spray was applied and injection warnings given Injected: 40 mg of, DepoMedrol and with 8 mL of (2% plain lido ) Approach Used: anterolateral Procedure: The patient tolerated the procedure well, but had some pain with the injection and there was some relief with the local anesthesia Coding 44160 - Large joint Procedure code (CPT) selection complete Results Reviewed Results Reviewed: 02/13/23 14:01 Lidocaine HCl 2 % MPF [Xylocaine 2 % MPF] 5 ml .ROUTE .STK-MED ONE methylPREDNISolone acetate [DEPO-MedroL] 40 mg .ROUTE .STK-MED ONE Assessment & Plan Assessment & Plan (1) Patellofemoral arthralgia of both knees: Code(s): M22.2X1 - Patellofemoral disorders, right knee; M22.2X2 - Patellofemoral disorders, left knee (2) Diabetes mellitus: Code(s): E11.9 - Type 2 diabetes mellitus without complications Plan Ms. Cuellar is a 47-year-old female who presents in the office today for a follow up of left knee pain. The patient had a cortisone injection in the bilateral knees on 11/17/2022. She reports she recently fall, which occurred on 02/05/2023, where the left knee gave out and she slipped and fell down the stairs. She states the pain is on the top of her knee cap. Patient has a history of taking Motrin and Tylenol for 3+ months with no relief. Patient has a significant history of diabetes mellitus. The patient was offered a cortisone injection in the left knee with 40 mg of DepoMedrol. The patient was explained the risk, benefits, and alternatives to receiving this injection. After receiving consent for the injection, the patient had the procedure done while in office today. The patient tolerated the procedure well with no complications. Due to the patient?s history of diabetes, they were instructed to monitor her blood glucose level. The patient was informed that they could see a rise in their numbers and if the numbers became too high, they were instructed to call their PCP. The patient was also informed that they could have facial flushing as a side effect of the injection but this will pass. Follow up will be PRN, or sooner if needed. X-rays of the left knee which were obtained while in the office today and were reviewed by me, Isabella Rocha PA-C, revealed no acute fractures or dislocation. Orders: Orders XR knee standing BI Today M25.569 - Pain in unspecified knee XR knee LT 2V Today M25.569 - Pain in unspecified knee Patient Instructions: Scribed for Isabella Rocha PA-C by Lizette Mancilla medical authorization specialist, on 02/13/2023 at 1:55 pm, EST. Coding Level of Care Code Est Pt Level 3 (44253) Diagnoses Patellofemoral arthralgia of both knees M22.2X1; M22.2X2 Diabetes mellitus E11.9 CPT Codes Coding - 93186 Large joint: 79428 - Large joint ([id number])
== END 2023-02-13 14:24 | disposition home or self-care (01) ==
PROVIDERS: PCP Family Medicine; Visit Provider Physician Assistant
DX: M22.2X2 Patellofemoral disorders, left knee (principal); M22.2X1 Patellofemoral disorders, right knee; E11.9 Type 2 diabetes mellitus without complications
CPT/HCPCS: 20610; 99213

== ENCOUNTER 2023-02-20 12:45 | Outpatient (AMB) | payer OTHER, SELFPAY ==
--- NOTE | 2023-02-20 13:05 | A.OFFVIS_ITS ---
Intake Intake Visit Reasons: 2 week pvr (OR Botox) Intake Note: Patient is Present for follow up post botox Urology Medication: Vesicare, Antibiotic Allergies: None Blood Thinners: None PVR: 83ml's Motion Study Technician Required: No Accompanied by: Self / Same As Patient Allergies cefuroxime [From CEFTIN] Allergy (Unknown, Verified 02/20/23 21:53) HIVES Medication List - Last Reconciled 02/20/23 by TAMIKA Leung acetaminophen ER 650 mg PO BID albuterol sulfate 90 mcg/actuation 2 puffs inhalation Q6-8H PRN alcohol swabs (Alcohol Prep Pads) 0 pad topical betamethasone valerate 0.1% 1 appl topical BID blood pressure test kit-large As directed blood sugar diagnostic (FreeStyle Lite Strips) As directed blood-glucose meter (FreeStyle [place] Lite kit) As directed cetirizine 10 mg PO DAILY cholecalciferol (vitamin D3) (Vitamin D3) 50 mcg PO QPM clonazepam 0.5 mg PO BID PRN cyclobenzaprine 10 mg PO BEDTIME dulaglutide (Trulicity) 0.75 mg subcut QWEEK eluxadoline (Viberzi) 75 mg PO BID empagliflozin (Jardiance) 10 mg PO QAM escitalopram oxalate 20 mg PO DAILY fluticasone propionate 50 mcg/actuation 1 spray intranasal DAILY furosemide 40 mg PO DAILY gabapentin 600 mg PO TID hydralazine 100 mg PO BID hydrochlorothiazide 25 mg PO QAM lancets (TRUEplus Lancets) As directed lanolin oowydyb-np-e.pet-ceres (Minerin Creme topical) 1 appl topical BID PRN levothyroxine 75 mcg PO DAILY levothyroxine 200 mcg PO QAM mvrybo-ixezghkb-laksgzf 24,000-76,000 -120,000 unit (Creon) 2 caps PO QID loperamide 4 mg (2 x 2 mg) PO BID losartan 100 mg PO DAILY menthol-zinc oxide 0.44-20.6 % (Calmoseptine) 1 appl topical QID PRN metoclopramide HCl 1 tab tidac and 2 tabs qhs orally 4 times a day; mineral oil-hydrophil petrolat (petrolatum topical ointment) 1 appl topical DAILY montelukast 10 mg PO BEDTIME naloxone 4 mg/actuation (Narcan) 1 spray intranasal Q2M PRN nystatin 1 appl topical BID ondansetron HCl 4 mg PO TID PRN pantoprazole 40 mg PO BID pentosan polysulfate sodium (Elmiron) 200 mg (2 x 100 mg) PO BID 90 days polyvinyl alcohol 1.4% 1 drp ophthalmic (eye) QID PRN solifenacin (Vesicare) 10 mg (2 x 5 mg) PO DAILY 90 days tizanidine 2 mg PO TID tramadol 50 mg PO Q6H PRN verapamil ER 240 mg PO DAILY zolpidem 10 mg PO BEDTIME PRN HPI HPI Comments History of Present Illness Details Shereen is a pleasant 47 year old female patient of Dr. Parry. She has a past medical history of allergic rhinitis, diabetes, arthritis, chronic pain syndrome, lumbar disc degeneration, fibromyalgia, hypothyroidism, interstitial cystitis, migraines, morbid obesity, obstructive sleep apnea, restrictive lung disease, and spinal stenosis. She presents to the office today for follow-up of her interstitial cystitis and mixed urinary incontinence. Of note, patient underwent cystoscopy with bladder Botox intra detrusor muscle with Dr. Simental on 02/05 in the OR. In discussion with the patient today she reports noting significant improvement in overactive bladder symptoms. She does continue to report the need to wear adult diapers however feels she is changing them less frequent. When asked she reports to be doing and feeling well. In office urinalysis results reviewed with the patient today. PVR 83 mL. She reports currently having her menses and is experiencing lower abdominal bloating and cramping. Previous cystoscopy knowing minimal descensus on coughing at cystoscopy and normal bladder. She otherwise offers no other issues or concerns at this time. [facility] Medical History Hirsutism Varicose veins with pain Restless leg syndrome Congenital pulmonary arteriovenous malformation Urinary retention Epicondylitis, lateral Interstitial cystitis Spinal stenosis of lumbar region Chronic pain syndrome Disc degeneration, lumbar Spondylosis, lumbar, with myelopathy Obstructive sleep apnea Morbid obesity due to excess calories Interstitial cystitis Arthritis Fibromyalgia Migraines Hypothyroid Restrictive lung disease Allergic rhinitis AISHWARYA on CPAP Morbidly obese Surgical History Hx of cystoscopy Hx of colonoscopy History of esophagogastroduodenoscopy (EGD) Family History Father Alcoholism Mother Leukemia Maternal Aunt Breast cancer Sister Depression Vertigo Family/Other Heart problem Diabetes Cancer Brother Atherosclerotic cardiovascular disease Cardiomegaly Social History Household Members: Family Household Members Other:: sister Are you a primary care specialist to a significant other at home: No Do you presently have visiting nurse or other home services: No Alcohol intake: never Patient Tobacco Use Status: Never used Tobacco Second Hand Smoke Exposure: No Substance Use Type: Marijuana Current occupational status: disabled 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 Review of Systems Const Reports as per HPI Eyes Reports no additional complaints ENT Reports no additional complaints Card Reports as per HPI Resp Reports as per HPI (Patient reports compliance with CPAP machine) GI Reports no additional complaints Reports as per HPI Musc Reports as per HPI Neuro Reports no additional complaints Psych Reports as per HPI Endo Reports as per HPI Physical Exam Const General: cooperative, comfortable, no acute distress, well developed, alert and awake Nutritional Appearance: obese Orientation/consciousness: patient oriented x3 Limitations: ambulation with cane HEENT Other: hair loss Head: Yes normal to inspection, Yes normocephalic and Yes atraumatic Ears: hearing grossly normal bilaterally Eyes General: appearance normal, both eyes and all related structures Neck Neck: Yes normal visual inspection and Yes trachea midline Chest Chest palpation & inspection: normal inspection of the chest Resp Effort & Inspection: normal respiratory effort and able to speak in complete sentences Cardio Rate: regular rate GI Inspection: Yes Abdominal panniculus present General: Yes no CVA tenderness Back/Spine/Pelvis Back: no CVA tenderness Skin Other: Intertrigo noted to abdominal folds. Neuro General: patient oriented x3 Extrem General: Yes normal to inspection Psych Mental Status: mental status grossly normal Speech and movement: Normal speech and movement present and Clear speech present Affect: normal affect Attitude: cooperative Thought process: Normal thought process present Thought content: Normal thought content present Insight: Fair insight present (Psych) Judgement: Fair judgement present (Psych) Office Procedures Post Void Residual Post Residual Void Post Void Residual (PVR): 83 10966-Cqix Void Residual by ultrasound Results AMB Urinalysis, Automated UA Leukoctes 70 Koby/uL Last Edit by Jailene Batres on 02/20/23 13:28 UA Nitrite Negative Last Edit by Jailene Batres on 02/20/23 13:28 UA Urobilinogen 0.2 mg/dL Last Edit by Jailene Batres on 02/20/23 13:28 UA Protein 30 mg/dL Last Edit by Jailene Batres on 02/20/23 13:28 UA pH 6.0 Last Edit by Jailene Batres on 02/20/23 13:28 UA Blood 200 Gage/uL Last Edit by Jailene Batres on 02/20/23 13:28 UA Specific [place] 1.030 Last Edit by Jailene [employer] on 02/20/23 13:28 UA Ketone Negative Last Edit by Jailene Batres on 02/20/23 13:28 UA Bilirubin 0 mg/dL Last Edit by Jailene Batres on 02/20/23 13:28 UA Glucose 0 mg/dL Last Edit by Jailene Batres on 02/20/23 13:28 Results Reviewed Results Reviewed: Laboratory Last Values Urine pH (Auto) 6.0 02/20/23 13:26 Specific [place] (Auto) 1.030 02/20/23 13:26 Urine Protein (Auto) 30 mg/dL 02/20/23 13:26 Glucose (UA)(Auto) 0 mg/dL 02/20/23 13:26 Urine Ketones (Auto) Negative 02/20/23 13:26 Urine Blood (Auto) 200 Gage/uL 02/20/23 13:26 Urine Nitrite (Auto) Negative 02/20/23 13:26 Urine Bilirubin (Auto) 0 mg/dL 02/20/23 13:26 Urine Urobilinogen (Auto) 0.2 mg/dL 02/20/23 13:26 Leukocyte Esterase (Auto) 70 Koby/uL 02/20/23 13:26 Assessment & Plan Assessment & Plan (1) Urinary frequency: Code(s): R35.0 - Frequency of micturition (2) Mixed incontinence urge and stress: Code(s): N39.46 - Mixed incontinence (3) Nocturia more than twice per night: Code(s): R35.1 - Nocturia (4) Interstitial cystitis: Code(s): N30.10 - Interstitial cystitis (chronic) without hematuria (5) Fungal infection of skin of abdomen: Code(s): B36.9 - Superficial mycosis, unspecified (6) Proteinuria: Code(s): R80.9 - Proteinuria, unspecified Plan In office urinalysis results reviewed with the patient today; as noted above Discussed and educated on the importance of weight loss to improve urinary symptoms as well as overall health and well-being PVR 83 mL Continue VESIcare 10 mg as patient reports somewhat improvement in urinary symptoms on this medication. Patient reporting improvement in lower urinary tract symptoms with recent bladder Botox Follow-up in 4-6 months with PVR; or sooner with any issues, concerns, and or questions. Orders: Orders AMB Urinalysis Automated Today Z13.9 - Encounter for screening, unspecified AMB Post Void Residual by ultrasound Today R35.1 - Nocturia Patient Instructions: The patient had an opportunity to ask questions regarding the treatment plan. All questions were answered. Physical exam, labs, and imaging were discussed and reviewed in detail. As well as risks, benefits, and discussion of treatment choices. No major barriers to understanding were identified. The patient expressed understanding and agreement with the above treatment plan. The patient was made aware they should contact our office by phone for worsening of their current condition, the appearance of new symptoms, or with any questions or concerns. Compliance is encouraged with any medications and follow up testing that is ordered. It is a privilege to be allowed the opportunity to participate in? your urological care.? Again, if you have any questions or concerns If you have any questions or concerns please do not hesitate to contact me. The office is [phone]. This note is constructed using voice recognition software. While every effort has been made to ensure accuracy mds coordinator errors may have been included. Yours sincerely, TAMIKA Leung Coding Level of Care Code Est Pt Level 3 (12260) Diagnoses Urinary frequency R35.0 Mixed incontinence urge and stress N39.46 Nocturia more than twice per night R35.1 Interstitial cystitis N30.10 Fungal infection of skin of abdomen B36.9 Proteinuria R80.9 CPT Codes Post Residual Void - PVR CPT Code: 04248-Ojdw Void Residual by ultrasound ([id number])
== END 2023-02-20 14:22 | disposition home or self-care (01) ==
PROVIDERS: PCP Family Medicine; Visit Provider Nurse Practitioner Family
DX: R35.0 Frequency of micturition (principal); N39.46 Mixed incontinence; R35.1 Nocturia; N30.10 Interstitial cystitis (chronic) without hematuria; B36.9 Superficial mycosis, unspecified; R80.9 Proteinuria, unspecified
CPT/HCPCS: 99213

== ENCOUNTER → 2023-02-20 12:45 | Outpatient (BNVA) | payer OTHER, SELFPAY | PROVIDERS: PCP Family Medicine; Visit Provider Nurse Practitioner Family | DX: R35.0 Frequency of micturition (principal); R35.1 Nocturia; R80.9 Proteinuria, unspecified; N39.46 Mixed incontinence; N30.10 Interstitial cystitis (chronic) without hematuria; B36.9 Superficial mycosis, unspecified | CPT/HCPCS: 51798; 81003; 99212 ==

== ENCOUNTER 2023-03-06 10:37 | Outpatient (REF) | payer OTHER, SELFPAY ==
--- NOTE | ~2023-03-06 | XR_ITS ---
EXAMINATION: XR PELVIS CLINICAL INFORMATION: Pain COMPARISON: Hip radiographs 01/02/2023 TECHNIQUE: AP view of the pelvis. FINDINGS: No acute fracture or dislocation. Minimal osteoarthritis of the hips, unchanged. Degenerative disc disease in the visualized lower lumbosacral spine. Soft tissues are unremarkable. XR/XR pelvis 1-2V IMPRESSION: 1. Minimal osteoarthritis of the hips, unchanged. 2. Degenerative disc disease in the visualized lower lumbosacral spine.
== END 2023-03-06 10:38 | disposition home or self-care (01) ==
LOC: HO.HOSX 10:37
PROVIDERS: Visit Provider Physician Assistant
DX: M70.61 Trochanteric bursitis, right hip (principal); M70.62 Trochanteric bursitis, left hip; E11.9 Type 2 diabetes mellitus without complications
CPT/HCPCS: 20610; 72170; 99212; J1040

== ENCOUNTER 2023-03-06 13:59 | Outpatient (AMB) | payer OTHER, SELFPAY ==
--- NOTE | 2023-03-06 14:11 | A.OFFVIS_ITS ---
Intake Intake Visit Reasons: New Prob- B/L hip pain Intake Note: Shereen is a 47 year old patient who presents today for a evaluation for her bilateral hip pain. Patient has been having ongoing pain for many years. She states that both of her hips are in the same pain scale. Patient reports her pain moves to her lower back. Allergies cefuroxime [From CEFTIN] Allergy (Unknown, Verified 03/06/23 14:14) HIVES HPI New Prob- B/L hip pain HPI Details 47-year-old female who presents in the [facility] today for an evaluation of bilateral hip pain. The patient reports having ongoing pain for many years. She states one side is not worse then the other side on the pain scale. She claims the pain radiated in to her lower back. Patient has a significant history of diabetes mellitus. [facility] Medical History Hirsutism Varicose veins with pain Restless leg syndrome Congenital pulmonary arteriovenous malformation Urinary retention Epicondylitis, lateral Interstitial cystitis Spinal stenosis of lumbar region Chronic pain syndrome Disc degeneration, lumbar Spondylosis, lumbar, with myelopathy Obstructive sleep apnea Morbid obesity due to excess calories Interstitial cystitis Arthritis Fibromyalgia Migraines Hypothyroid Restrictive lung disease Allergic rhinitis AISHWARYA on CPAP Morbidly obese Surgical History Hx of cystoscopy Hx of colonoscopy History of esophagogastroduodenoscopy (EGD) Family History Father Alcoholism Mother Leukemia Maternal Aunt Breast cancer Sister Depression Vertigo Family/Other Heart problem Diabetes Cancer Brother Atherosclerotic cardiovascular disease Cardiomegaly Social History Household Members: Family Household Members Other:: sister Are you a primary field care coordinator to a significant other at home: No Do you presently have visiting nurse or other home services: No Alcohol intake: never Comment: NONE Patient Tobacco Use Status: Never used Tobacco Second Hand Smoke Exposure: No Substance Use Type: Marijuana Current occupational status: disabled 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 No ecchymosis, erythema, or edema. Full hip ROM in all planes. Tenderness to palpation over the greater trochanteric bursa. 5/5 strength with resisted hip flexion, knee extension, abduction, and abduction. Able to perform straight leg raise. NVI. Office Procedures Joint Injection/Drain Joint Injection/Drain Primary Site: other (greater troch bursa right ) Secondary Site: other (greater troch bursa left ) Prep: site was prepped using aseptic technique, ethochloride spray was applied and injection warnings given Injected: 80 mg of, DepoMedrol, with 8 mL of (2% plain lido ) and other (greater troch bursa) Approach Used: anterolateral Procedure: The patient tolerated the procedure well, but had some pain with the injection and there was some relief with the local anesthesia Coding 43748 - Glenohumeral/Tronchanteric Bursa/Intraarticular Procedure code (CPT) selection complete Assessment & Plan Assessment & Plan (1) Greater trochanteric bursitis of right hip: Code(s): M70.61 - Trochanteric bursitis, right hip (2) Greater trochanteric bursitis of left hip: Code(s): M70.62 - Trochanteric bursitis, left hip (3) Diabetes mellitus: Code(s): E11.9 - Type 2 diabetes mellitus without complications Plan Ms. Cuellar is a 47-year-old female who presents in the office today for an evaluation of bilateral hip pain. The patient reports having ongoing pain for many years. She states one side is not worse then the other side on the pain scale. She claims the pain radiated in to her lower back. Patient has a significant history of diabetes mellitus. The patient was offered a cortisone injection in the bilateral hips with 80 mg of DepoMedrol. The patient was explained the risk, benefits, and alternatives to receiving this injection. After receiving consent for the injection, the patient had the procedure done while in office today. The patient tolerated the procedure well with no complications. Due to the patient?s history of diabetes, they were instructed to monitor her blood glucose level. The patient was informed that they could see a rise in their numbers and if the numbers became too high, they were instructed to call their PCP. The patient was also informed that they could have facial flushing as a side effect of the injection but this will pass. Follow up will be PRN, or sooner if needed. X-rays of the bilateral hips which were obtained while in the office today and were reviewed by me, Isabella Rocha PA-C, revealed no acute fractures or dislocations. Orders: Orders XR pelvis 1-2V 03/06/23 M25.559 - Pain in unspecified hip Patient Instructions: Scribed for Isabella Rocha PA-C by Lizette Mancilla medical engineer, on 03/06/2023 at 2:12 pm, EST. Coding Level of Care Code Est Pt Level 4 (35228) Diagnoses Greater trochanteric bursitis of right hip M70.61 Greater trochanteric bursitis of left hip M70.62 Diabetes mellitus E11.9 CPT Codes Coding - Joint 7: 95063 - Glenohumeral/Tronchanteric Bursa/Intraarticular ([id number])
== END 2023-03-06 15:04 | disposition home or self-care (01) ==
PROVIDERS: PCP Family Medicine; Visit Provider Physician Assistant
DX: M70.61 Trochanteric bursitis, right hip (principal); M70.62 Trochanteric bursitis, left hip; E11.9 Type 2 diabetes mellitus without complications
CPT/HCPCS: 20610; 99214

== ENCOUNTER 2023-03-14 12:52 | Outpatient (AMB) | payer OTHER, SELFPAY ==
[2023-03-14 12:56] VITALS: PULSE 84; RESP 12; O2SAT 98
--- NOTE | 2023-03-14 12:56 | MHC.OFFVIS ---
Intake Vital Signs 03/14/23 12:56 Height 5 ft 1 in Blood Pressure Location Lt radial Position Sitting Respiration 12 Pulse 84 Pulse Source Pulse Oximeter Pulse Oximetry (%) 98 Oxygen Delivery Method Room Air Intake Visit Reasons: S/p B/l Therapeutic L3-L4-DRL5 MBB 02/02/23/Conf Allergies cefuroxime [From CEFTIN] Allergy (Unknown, Verified 03/14/23 12:58) HIVES Medication List - Last Reconciled 03/14/23 by Alesia Neves LPN acetaminophen ER 650 mg PO BID albuterol sulfate 90 mcg/actuation 2 puffs inhalation Q6-8H PRN alcohol swabs (Alcohol Prep Pads) 0 pad topical betamethasone valerate 0.1% 1 appl topical BID blood pressure test kit-large As directed blood sugar diagnostic (FreeStyle Lite Strips) As directed blood-glucose meter (FreeStyle Trufant Lite kit) As directed cetirizine 10 mg PO DAILY cholecalciferol (vitamin D3) (Vitamin D3) 50 mcg PO QPM clonazepam 0.5 mg PO TID PRN cyclobenzaprine 10 mg PO BEDTIME dulaglutide (Trulicity) 0.75 mg subcut QWEEK eluxadoline (Viberzi) 75 mg PO BID empagliflozin (Jardiance) 10 mg PO QAM escitalopram oxalate 20 mg PO DAILY fluticasone propionate 50 mcg/actuation 1 spray intranasal DAILY furosemide 40 mg PO DAILY gabapentin 600 mg PO TID hydralazine 100 mg PO BID hydrochlorothiazide 25 mg PO QAM lancets (TRUEplus Lancets) As directed lanolin vpecpaz-mi-o.pet-ceres (Minerin Creme topical) 1 appl topical BID PRN levothyroxine 75 mcg PO DAILY levothyroxine 200 mcg PO QAM bilokg-bjxblnlg-emrijgi 24,000-76,000 -120,000 unit (Creon) 2 caps PO QID loperamide 4 mg (2 x 2 mg) PO BID losartan 100 mg PO DAILY menthol-zinc oxide 0.44-20.6 % (Calmoseptine) 1 appl topical QID PRN metoclopramide HCl 1 tab tidac and 2 tabs qhs orally 4 times a day; mineral oil-hydrophil petrolat (petrolatum topical ointment) 1 appl topical DAILY montelukast 10 mg PO BEDTIME naloxone 4 mg/actuation (Narcan) 1 spray intranasal Q2M PRN nystatin 1 appl topical BID ondansetron HCl 4 mg PO TID PRN pantoprazole 40 mg PO BID pentosan polysulfate sodium (Elmiron) 200 mg (2 x 100 mg) PO BID 90 days polyvinyl alcohol 1.4% 1 drp ophthalmic (eye) QID PRN solifenacin (Vesicare) 10 mg (2 x 5 mg) PO DAILY 90 days tizanidine 2 mg PO TID tramadol 50 mg PO Q6H PRN verapamil ER 240 mg PO DAILY zolpidem 10 mg PO BEDTIME PRN HPI HPI Comments History of Present Illness Details Shereen is back in my office after the repeated therapeutic L3-L4 does ramus L5 medial branch block bilateral which was performed on 02/02/2023. She is 40 days after the procedure, she reports on going 90% pain improve, better mobility, better social interactions better activities of daily living. She reports that her blood pressure is elevated she states that issue with her apartment is reason her blood pressure is elevated. She is working on better situation with her housing. She was informed today that if she needs to perform yet another medial branch block she can be scheduled without coming for the appointment. She just need to give us a call sometime in the future to schedule the procedure provided it is more than 3 months from 02/02/2023. Prior: Shereen is very pleasant 46 years old female who is in my office under observation for long period of time.? She received in the past for the treatment of spondylosis of lumbar spine medial branch blocks L3-L4 does ramus L5 therapeutic with relatively good results few weeks of pain relief.? He also was receiving tizanidine 2. mg t.i.d [facility] Medical History Hirsutism Varicose veins with pain Restless leg syndrome Congenital pulmonary arteriovenous malformation Urinary retention Epicondylitis, lateral Interstitial cystitis Spinal stenosis of lumbar region Chronic pain syndrome Disc degeneration, lumbar Spondylosis, lumbar, with myelopathy Obstructive sleep apnea Morbid obesity due to excess calories Interstitial cystitis Arthritis Fibromyalgia Migraines Hypothyroid Restrictive lung disease Allergic rhinitis AISHWARYA on CPAP Morbidly obese Surgical History Hx of cystoscopy Hx of colonoscopy History of esophagogastroduodenoscopy (EGD) Family History Father Alcoholism Mother Leukemia Maternal Aunt Breast cancer Sister Depression Vertigo Family/Other Heart problem Diabetes Cancer Brother Atherosclerotic cardiovascular disease Cardiomegaly Social History Household Members: Family Household Members Other:: sister Are you a primary point of care technician to a significant other at home: No Do you presently have visiting nurse or other home services: No Alcohol intake: never Comment: NONE Patient Tobacco Use Status: Never used Tobacco Second Hand Smoke Exposure: No Substance Use Type: Marijuana Current occupational status: disabled 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 Review of Systems Const All systems reviewed & are unremarkable except as noted in HPI and below Physical Exam Vital Signs: Last Vital Signs Pulse 84 03/14/23 12:56 Resp 12 03/14/23 12:56 Pulse Ox 98 03/14/23 12:56 Oxygen Delivery Method Room Air 03/14/23 12:56 Const General: cooperative, no acute distress, well developed and well groomed Nutritional Appearance: well nourished and obese morbidly obese Orientation/consciousness: oriented to person, oriented to place and oriented to time Limitations: No language barrier and ambulation with walker HEENT Head: Yes normocephalic and Yes atraumatic Eyes General: appearance normal, both eyes and all related structures Pupils: Equal, round and reactive pupils present Resp Effort & Inspection: normal respiratory effort and able to speak in complete sentences Auscultation: clear to auscultation bilaterally Cardio Jugular venous distension: no JVD GI Inspection: Yes Abdominal panniculus present and Yes obesity Back/Spine/Pelvis Thoracic/Lumbar Spine: No thoraco-lumbar ROM normal, Lasegue's sign negative bilateral, straight leg raise negative bilaterally, pain with thoraco-lumbar ROM, paraspinal muscle tenderness, thoraco-lumbar ROM limited, lumbar spinal tenderness and other (loading test is positive bilaterally) Neuro General: oriented to person, oriented to place, oriented to time and gait normal Cranial nerves: Yes Equal, round and reactive pupils present Extrem General: Yes normal to inspection Psych Appearance: grossly normal Speech and movement: Normal speech and movement present Affect: normal affect Attitude: cooperative Assessment & Plan Assessment & Plan (1) Morbidly obese: Code(s): E66.01 - Morbid (severe) obesity due to excess calories (2) Spinal stenosis of lumbar region: Code(s): M48.061 - Spinal stenosis, lumbar region without neurogenic claudication (3) Chronic pain syndrome: Code(s): G89.4 - Chronic pain syndrome (4) Morbid obesity due to excess calories: Code(s): E66.01 - Morbid (severe) obesity due to excess calories (5) Disc degeneration, lumbar: Code(s): M51.36 - Other intervertebral disc degeneration, lumbar region (6) Spondylosis of lumbar region without myelopathy or radiculopathy: Code(s): M47.816 - Spondylosis without myelopathy or radiculopathy, lumbar region Plan No issue of the prescription of the tizanidine 2 mg tid today. In the past I offered her spinal cord stimulation Nevro in the attempt to alleviate her pain. She is unable to go for the trial because of her apartment situation Bilateral medial branch block L3 L4 dorsal ramus L5 gave 40 days of excellent pain relieve 90% of pain improvement with excellent ability to handle activities of daily living. She was cleared by Dr. Francisco for the procedure I do not mind to repeat the procedure provided that it is in 90 days from [id number] more. She needs to call us and request to schedule the appointment in the operating room. Usually do the procedures for her under sedation. Coding Level of Care Code Est Pt Level 3 (05047) Diagnoses Morbidly obese E66.01 Spinal stenosis of lumbar region M48.061 Chronic pain syndrome G89.4 Morbid obesity due to excess calories E66.01 Disc degeneration, lumbar M51.36 Spondylosis of lumbar region without myelopathy or radiculopathy M47.816
== END 2023-03-14 13:07 | disposition home or self-care (01) ==
PROVIDERS: PCP Family Medicine; Visit Provider Anesthesiology
DX: G89.4 Chronic pain syndrome (principal); M48.061 Spinal stenosis, lumbar region without neurogenic claudication; M51.36 Other intervertebral disc degeneration, lumbar region; M47.816 Spondylosis without myelopathy or radiculopathy, lumbar region; E66.01 Morbid (severe) obesity due to excess calories
CPT/HCPCS: 99213

== ENCOUNTER → 2023-03-14 12:52 | Outpatient (BNVA) | payer OTHER, SELFPAY | PROVIDERS: PCP Family Medicine; Visit Provider Anesthesiology | DX: M48.061 Spinal stenosis, lumbar region without neurogenic claudication (principal); M51.36 Other intervertebral disc degeneration, lumbar region; M47.816 Spondylosis without myelopathy or radiculopathy, lumbar region; G89.4 Chronic pain syndrome; E66.01 Morbid (severe) obesity due to excess calories | CPT/HCPCS: 99212 ==

== ENCOUNTER 2023-05-03 11:58 | Outpatient (REF) | payer OTHER, SELFPAY ==
[2023-05-03 13:57] LABS: Hematocrit 41.8 % (37.0-47.0); Mean Corpuscular HGB Conc 33.5 g/dl (31.0-35.0); Mean Corpuscular Hemoglobin 29.8 pg (27.0-33.0); Mean Corpuscular Volume 88.9 fL (80.0-98.0); Mean Platelet Volume 9.8 fL (9.4-12.3); Platelet Count 301 X10*3/uL (160-400); Red Cell Distribution Width 13.1 % (11.0-16.0); White Blood Count 7.2 X10*3/uL (4.8-10.8)
[2023-05-03 14:12] LABS: Estimated Average Glucose 103 mg/dL; Hemoglobin A1c % 5.2 % (<6.0)
[2023-05-03 14:42] LABS: Alanine Aminotransferase 30 U/L (0-31); Albumin Level 3.9 g/dL (3.5-5.0); Alkaline Phosphatase 60 U/L (39-117); Anion Gap 13 (12-20); Aspartate Amino Transferase 19 U/L (5-31); Bilirubin Direct 0.2 mg/dL (0.0-0.5); Bilirubin Total 0.5 mg/dL (0.0-1.0); Blood Urea Nitrogen 9 mg/dL (9-16); Calcium 9.7 mg/dL (8.4-10.2); Carbon Dioxide 25 mmol/L (22-29); Chloride 106 mmol/L (96-108); Cholesterol 142 mg/dL (<200); Estimated Glomerular Filt Rate > 60; Glucose Random 104 mg/dL (60-115); HDL Cholesterol 43 mg/dL (>40); LDL Cholesterol Calculated 83 mg/dL (<100); Potassium 4.1 mmol/L (3.3-5.1); Sodium 140 mmol/L (135-145); Total Protein 7.4 g/dL (6.5-8.0); Triglycerides 82 mg/dL (<150)
[2023-05-03 14:51] LABS: Free T4 (Free Thyroxine) 1.09 ng/dL (0.71-1.85); Thyroid Stimulating Hormone 0.56 uIU/mL (0.32-4.0); Vitamin D 25-OH Total 12.4 ng/mL (>30)
[2023-05-03 15:42] LABS: Creatinine Urine 215.21 mg/dL; Microalbum/Creatinine Ratio Ur 4.6 ug/mg cr (<30)
== END 2023-05-03 11:59 | disposition home or self-care (01) ==
LOC: HO.HHCL 11:58
PROVIDERS: Visit Provider Family Medicine
DX: Z00.00 Encounter for general adult medical examination without abnormal findings (principal); E11.9 Type 2 diabetes mellitus without complications; I10 Essential (primary) hypertension; J45.30 Mild persistent asthma, uncomplicated; R07.9 Chest pain, unspecified; E03.9 Hypothyroidism, unspecified; F33.9 Major depressive disorder, recurrent, unspecified; K21.9 Gastro-esophageal reflux disease without esophagitis; G43.909 Migraine, unspecified, not intractable, without status migrainosus; M54.40 Lumbago with sciatica, unspecified side; G89.29 Other chronic pain; M79.7 Fibromyalgia
CPT/HCPCS: 36415; 80048; 80061; 80076; 82043; 82306; 82570; 83036; 84439; 84443; 85027

== ENCOUNTER 2023-06-07 12:51 | Outpatient (AMB) | payer OTHER, SELFPAY ==
--- NOTE | 2023-06-07 12:52 | MHC.OFFVIS ---
Intake Vital Signs 06/07/23 12:53 Height 5 ft 1 in Intake Visit Reasons: OV- B/L knee OA, last inj02/13/23 Intake Note: Shereen is a 47 year old female who present today for a follow up for her bilateral knee OA, DOI 02/13/23. Patient reports that her Left knee has been feeling worse especially going down the stairs. Patient states that she would like to have bilateral corisone injections today . Allergies cefuroxime [From CEFTIN] Allergy (Unknown, Verified 06/07/23 12:58) HIVES HPI OV- B/L knee OA, last inj02/13/23 HPI Details 47-year-old female who presents in the office today for a follow up of bilateral knee pain. I last saw the patient for her left knee on 02/13/2023 status post a fall. She was given a cortisone injection in the left knee while at this appointment. While in the office today the patient reports increased pain in the left knee, especially when going down stairs. She would like to repeat the cortisone injections bilaterally today. Patient has a significant medical history of diabetes mellitus. [facility] Medical History Hirsutism Varicose veins with pain Restless leg syndrome Congenital pulmonary arteriovenous malformation Urinary retention Epicondylitis, lateral Interstitial cystitis Spinal stenosis of lumbar region Chronic pain syndrome Disc degeneration, lumbar Spondylosis, lumbar, with myelopathy Obstructive sleep apnea Morbid obesity due to excess calories Interstitial cystitis Arthritis Fibromyalgia Migraines Hypothyroid Restrictive lung disease Allergic rhinitis AISHWARYA on CPAP Morbidly obese Surgical History Hx of cystoscopy Hx of colonoscopy History of esophagogastroduodenoscopy (EGD) Family History Father Alcoholism Mother Leukemia Maternal Aunt Breast cancer Sister Depression Vertigo Family/Other Heart problem Diabetes Cancer Brother Atherosclerotic cardiovascular disease Cardiomegaly Social History Household Members: Family Household Members Other:: sister Are you a primary pediatric care coordinator to a significant other at home: No Do you presently have visiting nurse or other home services: No Alcohol intake: never Comment: NONE Patient Tobacco Use Status: Never used Tobacco Second Hand Smoke Exposure: No Substance Use Type: Marijuana Current occupational status: disabled 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 Tenderness along the medial joint line. ROM full with crepitus. Negative Steinmans. No ligamentous laxity. NVI. Office Procedures Joint Injection/Drain Joint Injection/Drain Primary Site: right knee Secondary Site: left knee Prep: site was prepped using aseptic technique, ethochloride spray was applied and injection warnings given Injected: 40 mg of, DepoMedrol, with 8 mL of (2% plain lido ) and in the joint Approach Used: anterolateral Procedure: The patient tolerated the procedure well, but had some pain with the injection and there was some relief with the local anesthesia Coding 14450 - Large joint Procedure code (CPT) selection complete Assessment & Plan Assessment & Plan (1) Patellofemoral arthralgia of both knees: Code(s): M22.2X1 - Patellofemoral disorders, right knee; M22.2X2 - Patellofemoral disorders, left knee (2) Diabetes mellitus: Code(s): E11.9 - Type 2 diabetes mellitus without complications Plan Ms. Cuellar is a 47-year-old female who presents in the office today for a follow up of bilateral knee pain. I last saw the patient for her left knee on 02/13/2023 status post a fall. She was given a cortisone injection in the left knee while at this appointment. While in the office today the patient reports increased pain in the left knee, especially when going down stairs. She would like to repeat the cortisone injections bilaterally today. Patient has a significant medical history of diabetes mellitus. The patient was offered a cortisone injection in the bilateral knees with 40 mg of DepoMedrol. The patient was explained the risk, benefits, and alternatives to receiving this injection. After receiving consent for the injection, the patient had the procedure done while in office today. The patient tolerated the procedure well with no complications. Due to the patient?s history of diabetes, they were instructed to monitor her blood glucose level. The patient was informed that they could see a rise in their numbers and if the numbers became too high, they were instructed to call their PCP. The patient was also informed that they could have facial flushing as a side effect of the injection but this will pass. Follow up will be PRN, or sooner if needed. Patient Instructions: Scribed by Lizette Mancilla biomedical field service engineer, for Isabella Rocha PA-C on 06/07/2023 at 12:52 pm, EST. Coding Level of Care Code Est Pt Level 4 (50795) Diagnoses Patellofemoral arthralgia of both knees M22.2X1; M22.2X2 Diabetes mellitus E11.9 CPT Codes Coding - 46138 Large joint: 14316 - Large joint ([id number])
== END 2023-06-07 14:44 | disposition home or self-care (01) ==
PROVIDERS: PCP Family Medicine; Visit Provider Physician Assistant
DX: M22.2X1 Patellofemoral disorders, right knee (principal); M22.2X2 Patellofemoral disorders, left knee; E11.9 Type 2 diabetes mellitus without complications
CPT/HCPCS: 20610; 99214

== ENCOUNTER → 2023-06-07 12:51 | Outpatient (BNVA) | payer OTHER, SELFPAY | PROVIDERS: PCP Family Medicine; Visit Provider Physician Assistant | DX: M22.2X1 Patellofemoral disorders, right knee (principal); M22.2X2 Patellofemoral disorders, left knee; E11.9 Type 2 diabetes mellitus without complications | CPT/HCPCS: 20610; 99212; J1020 ==

== ENCOUNTER 2023-06-15 09:34 | Outpatient (REF) | payer OTHER, SELFPAY ==
--- NOTE | ~2023-06-15 | XR_ITS ---
EXAMINATION: XR hip LT min 2V, XR hip RT min 2V CLINICAL INFORMATION: Reason for Exam M25.559 - Pain in unspecified hip COMPARISON: 01/02/2023 TECHNIQUE: Two views of the bilateral hips FINDINGS: * No acute fracture or dislocation. * Mild narrowing of the bilateral femoral acetabular joints. * No soft tissue abnormality. XR/XR hip LT min 2V IMPRESSION: Mild degenerative changes of the bilateral hips.
--- NOTE | ~2023-06-15 | XR_ITS ---
EXAMINATION: XR hip LT min 2V, XR hip RT min 2V CLINICAL INFORMATION: Reason for Exam M25.559 - Pain in unspecified hip COMPARISON: 01/02/2023 TECHNIQUE: Two views of the bilateral hips FINDINGS: * No acute fracture or dislocation. * Mild narrowing of the bilateral femoral acetabular joints. * No soft tissue abnormality. XR/XR hip RT min 2V IMPRESSION: Mild degenerative changes of the bilateral hips.
== END 2023-06-15 09:35 | disposition home or self-care (01) ==
LOC: HO.HOSX 09:34
PROVIDERS: Visit Provider Physician Assistant
DX: M70.72 Other bursitis of hip, left hip (principal); M70.71 Other bursitis of hip, right hip; M54.16 Radiculopathy, lumbar region
CPT/HCPCS: 73502; 99212

== ENCOUNTER 2023-06-15 12:36 | Outpatient (AMB) | payer OTHER, SELFPAY ==
--- NOTE | 2023-06-15 12:58 | A.OFFVIS_ITS ---
Intake Vital Signs 06/15/23 12:58 Height 5 ft 1 in Intake Visit Reasons: OV - B/L hip bursitis, last injections 03/06/23 Intake Note: Shereen is a 47 year old patient who presents today for a evaluation for her bilateral hip bursitis, last injections 03/06/23. Patient reports her last injections gave her 3 months of relief and she would like to repeat. She is having pain in her lower back, she states that her left hip locks in place and causes her a lot of pain. Allergies cefuroxime [From CEFTIN] Allergy (Unknown, Verified 06/15/23 13:12) HIVES HPI OV - B/L hip bursitis, last injections 03/06/23 HPI Details 47-year-old female [facility] a follow up of bilateral hip pain. I last saw the patient for bilateral hip pain on 03/06/2024 at which time she received cortisone injections in the bilateral hips. While in the office today she reports the last injection gave her 3 months relief and she would like to repeat the injection today. She states the left hip locks in place and causes her a lot of pain. Patient also reports having lower back pain. Patient had cortisone injections in the bilateral knees on 06/07/2023. Patient has a significant medical history of diabetes mellitus. [facility] Medical History Hirsutism Varicose veins with pain Restless leg syndrome Congenital pulmonary arteriovenous malformation Urinary retention Epicondylitis, lateral Interstitial cystitis Spinal stenosis of lumbar region Chronic pain syndrome Disc degeneration, lumbar Spondylosis, lumbar, with myelopathy Obstructive sleep apnea Morbid obesity due to excess calories Interstitial cystitis Arthritis Fibromyalgia Migraines Hypothyroid Restrictive lung disease Allergic rhinitis AISHWARYA on CPAP Morbidly obese Surgical History Hx of cystoscopy Hx of colonoscopy History of esophagogastroduodenoscopy (EGD) Family History Father Alcoholism Mother Leukemia Maternal Aunt Breast cancer Sister Depression Vertigo Family/Other Heart problem Diabetes Cancer Brother Atherosclerotic cardiovascular disease Cardiomegaly Social History Household Members: Family Household Members Other:: sister Are you a primary manager career to a significant other at home: No Do you presently have visiting nurse or other home services: No Alcohol intake: never Comment: NONE Patient Tobacco Use Status: Never used Tobacco Second Hand Smoke Exposure: No Substance Use Type: Marijuana Current occupational status: disabled 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 No ecchymosis, erythema, or edema. Full hip ROM in all planes. No tenderness to palpation over the greater trochanteric bursa. 4/5 strength with resisted hip flexion, knee extension, abduction, and abduction. Pain with straight leg raise. NVI. Assessment & Plan Assessment & Plan (1) Lumbar radiculopathy: Code(s): M54.16 - Radiculopathy, lumbar region Plan Ms. Cuellar is a 47-year-old female who presents in the office today for a follow up of bilateral hip pain. I last saw the patient for bilateral hip pain on 03/06/2024 at which time she received cortisone injections in the bilateral hips. While in the office today she reports the last injection gave her 3 months relief and she would like to repeat the injection today. She states the left hip locks in place and causes her a lot of pain. Patient also reports having lower back pain. Patient had cortisone injections in the bilateral knees on 06/07/2023. Patient has a significant medical history of diabetes mellitus. I feel that the patient should be evaluated by Physiatry for further evaluation and treatment of her lower back. Therefore, she will follow up with Dr. Haq. Follow up with orthopedics will be PRN, or sooner if needed. X-rays of the bilateral hips which were obtained while in the office today and were reviewed by me, Isabella Rocha PA-C, revealed no acute fracture or dislocation. Orders: Orders XR hip LT min 2V Today M25.559 - Pain in unspecified hip XR hip RT min 2V Today M25.559 - Pain in unspecified hip Patient Instructions: Scribed by Lizette Mancilla rn medical surgical, for Isabella Rocha PA-C on 06/15/2023 at 12:38 pm, EST. Coding Level of Care Code Est Pt Level 4 (88845) Diagnoses Lumbar radiculopathy M54.16
== END 2023-06-15 13:40 | disposition home or self-care (01) ==
PROVIDERS: PCP Family Medicine; Visit Provider Physician Assistant
DX: M54.16 Radiculopathy, lumbar region (principal)
CPT/HCPCS: 99214

== ENCOUNTER 2023-06-18 13:27 | Outpatient (AMB) | payer OTHER, SELFPAY ==
--- NOTE | 2023-06-18 13:31 | MHC.OFFVIS ---
Intake Vital Signs 06/18/23 13:43 Height 5 ft 1 in Weight 275 lb 9.245 oz BMI 52.1 BP 132/74 Blood Pressure Location Lt brachial Position Sitting Pulse 74 Pulse Source Pulse Oximeter Pulse Oximetry (%) 98 Oxygen Delivery Method Room Air Intake Visit Reasons: Asthma Felled Seam Operator Required: No Perinatal Specialist: Perinatal Specialist offered & declined Allergies cefuroxime [From CEFTIN] Allergy (Severe, Verified 06/19/23 12:54) HIVES Medication List - Last Reconciled 06/18/23 by Nyla Turcios LPN acetaminophen ER 650 mg PO BID albuterol sulfate 90 mcg/actuation 2 puffs inhalation Q6-8H PRN alcohol swabs (Alcohol Prep Pads) 0 pad topical betamethasone valerate 0.1% 1 appl topical BID blood pressure test kit-large As directed blood sugar diagnostic (FreeStyle Lite Strips) As directed blood-glucose meter (FreeStyle Constable Lite kit) As directed cetirizine 10 mg PO DAILY cholecalciferol (vitamin D3) (Vitamin D3) 50 mcg PO QPM clonazepam 0.5 mg PO TID PRN cyclobenzaprine 10 mg PO BEDTIME dulaglutide (Trulicity) 0.75 mg subcut QWEEK eluxadoline (Viberzi) 75 mg PO BID empagliflozin (Jardiance) 10 mg PO QAM escitalopram oxalate 20 mg PO DAILY fluticasone propionate 50 mcg/actuation 1 spray intranasal DAILY gabapentin 600 mg PO TID hydralazine 100 mg PO BID hydrochlorothiazide 25 mg PO QAM lancets (TRUEplus Lancets) As directed lanolin bkgmvxh-gd-u.pet-ceres (Minerin Creme topical) 1 appl topical BID PRN levothyroxine 75 mcg PO DAILY levothyroxine 200 mcg PO QAM bzhqkd-odwlijac-fnyesws 24,000-76,000 -120,000 unit (Creon) 2 caps PO QID loperamide 4 mg (2 x 2 mg) PO BID losartan 100 mg PO DAILY menthol-zinc oxide 0.44-20.6 % (Calmoseptine) 1 appl topical QID PRN metoclopramide HCl 1 tab tidac and 2 tabs qhs orally 4 times a day; mineral oil-hydrophil petrolat (petrolatum topical ointment) 1 appl topical DAILY montelukast 10 mg PO BEDTIME naloxone 4 mg/actuation (Narcan) 1 spray intranasal Q2M PRN nystatin 1 appl topical BID ondansetron HCl 4 mg PO TID PRN pantoprazole 40 mg PO BID pentosan polysulfate sodium (Elmiron) 200 mg (2 x 100 mg) PO BID 90 days polyvinyl alcohol 1.4% 1 drp ophthalmic (eye) QID PRN solifenacin (Vesicare) 10 mg (2 x 5 mg) PO DAILY 90 days tizanidine 2 mg PO TID tramadol 50 mg PO Q6H PRN verapamil ER 240 mg PO DAILY zolpidem 10 mg PO BEDTIME PRN HPI Asthma HPI Details Shereen is a pleasant 47 year old female, never smoker, with underlying asthma, morbid obesity and AISHWARYA on CPAP therapy. She was previously a patient of Dr. Urbina but was lost to follow up. Today she presents to reestablish care. She has been using singulair, and Asmanex 100 mcg 1 inhalation QD with suboptimal response. She continues to report dyspnea with minimal exertion. She denies wheezing, cough or chest tightness. Recent PFT, below. She is aware that her weight is contributing to some symptoms and has been losing weight since initiating Trulicty. Denies any recent imaging. She reports mild seasonal allergies controlled with singulair and uses flonase. She reports multiple family members have asthma. She denies any occupational exposures. She is complaint with BiPAP therapy since 2010, with pressure settings 20/13, through [facility] and receives her supplies through [facility]. [facility] Medical History Hirsutism Varicose veins with pain Restless leg syndrome Congenital pulmonary arteriovenous malformation Urinary retention Epicondylitis, lateral Interstitial cystitis Spinal stenosis of lumbar region Chronic pain syndrome Disc degeneration, lumbar Spondylosis, lumbar, with myelopathy Obstructive sleep apnea Morbid obesity due to excess calories Interstitial cystitis Arthritis Fibromyalgia Migraines Hypothyroid Restrictive lung disease Allergic rhinitis AISHWARYA on CPAP Morbidly obese Surgical History Hx of spinal surgery Hx of cystoscopy Hx of colonoscopy History of esophagogastroduodenoscopy (EGD) Family History Father Alcoholism Mother Leukemia Maternal Aunt Breast cancer Sister Depression Vertigo Family/Other Heart problem Diabetes Cancer Brother Atherosclerotic cardiovascular disease Cardiomegaly Social History Household Members: Family Household Members Other:: niece Housing: Apartment Are you a primary resident care spec to a significant other at home: No Do you presently have visiting nurse or other home services: Yes (MARINE SURVEYOR 9 hours /week) 75 years or older and lives alone: No Alcohol intake: never Comment: NONE Patient Tobacco Use Status: Never used Tobacco Second Hand Smoke Exposure: No Substance Use Type: Marijuana Current occupational status: disabled 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 Physical Exam Vital Signs: Last Vital Signs Pulse 74 06/18/23 13:43 BP 132/74 06/18/23 13:43 Pulse Ox 98 06/18/23 13:43 Oxygen Delivery Method Room Air 06/18/23 13:43 BMI result Body Mass Index 52.1 Results Reviewed Results Reviewed: Assessment & Plan Assessment & Plan (1) Asthma: Code(s): J45.909 - Unspecified asthma, uncomplicated (2) Restrictive lung disease: Comment: r/t BMI Code(s): J98.4 - Other disorders of lung (3) Allergic rhinitis: Code(s): J30.9 - Allergic rhinitis, unspecified (4) AISHWARYA on CPAP: Code(s): G47.33 - Obstructive sleep apnea (adult) (pediatric); Z99.89 - Dependence on other enabling machines and devices (5) Morbidly obese: Code(s): E66.01 - Morbid (severe) obesity due to excess calories Plan Shereen's symptoms are likely related to underlying asthma and restrictive lung disease secondary to BMI. She was recently started on Asmanex by PCP using QD, advised to increase to BID and will reevaluate in 6 weeks. Will also send for CXR to assess for any abnormalities contributing to dyspnea. All questions were answered and patient is in agreement of plan. Will follow-up to review response to increased dose of Asmanex as well as chest x-ray results. Orders: Orders XR chest 2V Today R06.00 - Dyspnea, unspecified Medications: New albuterol sulfate 90 mcg/actuation 2 puffs inhalation Q4-6H PRN 1 ea 3RF shortness of breath or wheezing Coding Level of Care Code New Pt Level 4 (14798) Diagnoses Asthma J45.909 Restrictive lung disease J98.4 Allergic rhinitis J30.9 AISHWARYA on CPAP G47.33; Z99.89 Morbidly obese E66.01
[2023-06-18 13:43] VITALS: BP 132/74; PULSE 74; O2SAT 98; BMI 52.1
== END 2023-06-18 14:33 | disposition home or self-care (01) ==
PROVIDERS: PCP Family Medicine; Referring Provider Family Medicine; Visit Provider Nurse Practitioner Family
DX: J45.909 Unspecified asthma, uncomplicated (principal); J98.4 Other disorders of lung; J30.9 Allergic rhinitis, unspecified; G47.33 Obstructive sleep apnea (adult) (pediatric); Z99.89 Dependence on other enabling machines and devices; E66.01 Morbid (severe) obesity due to excess calories
CPT/HCPCS: 99204

== ENCOUNTER → 2023-06-18 13:27 | Outpatient (BNVA) | payer OTHER, SELFPAY | PROVIDERS: PCP Family Medicine; Referring Provider Family Medicine; Visit Provider Nurse Practitioner Family | DX: J45.909 Unspecified asthma, uncomplicated (principal); J98.4 Other disorders of lung; G47.33 Obstructive sleep apnea (adult) (pediatric); E66.01 Morbid (severe) obesity due to excess calories; Z99.89 Dependence on other enabling machines and devices; Z68.43 Body mass index [BMI] 50.0-59.9, adult | CPT/HCPCS: 99202 ==

== ENCOUNTER 2023-06-19 12:24 | Outpatient (REF) | payer OTHER, SELFPAY ==
--- NOTE | ~2023-06-19 | XR_ITS ---
EXAMINATION: XR CHEST CLINICAL INFORMATION: Dyspnea, unspecified COMPARISON: Chest 08/10/2021 TECHNIQUE: 2 views of the chest were obtained. FINDINGS: No significant abnormality is noted involving the heart, lungs, mediastinum, bony thorax or soft tissues. XR/XR chest 2V IMPRESSION: Unremarkable examination.
== END 2023-06-19 12:25 | disposition home or self-care (01) ==
LOC: HO.XRAY 12:24
PROVIDERS: Absent Provider Nurse Practitioner Family; PCP Family Medicine; Visit Provider Nurse Practitioner
DX: Z01.818 Encounter for other preprocedural examination (principal); R06.00 Dyspnea, unspecified; K64.9 Unspecified hemorrhoids; Z80.0 Family history of malignant neoplasm of digestive organs
CPT/HCPCS: 71046; 99212

== ENCOUNTER 2023-06-19 12:24 | Outpatient (AMB) | payer OTHER, SELFPAY ==
--- NOTE | 2023-06-19 12:40 | MHC.OFFVIS ---
Intake Vital Signs 06/19/23 12:53 Height 5 ft 1 in Weight 275 lb BMI 52.0 BP 114/56 L Blood Pressure Location Lt brachial Position Sitting Pulse 68 Intake Visit Reasons: r/s appointment from 05/29/23 Intake Note: Shereen presents in the office as a follow up. CC: for the past month and a half - she states that she has been taking trulicity her sugar has been good. She states that she is using the bathroom constantly but it is not diarrhea. She has imodium to not go frequently but she states she wants to have the numbing cream that she had before. She states that she uses the diaper and when she goes to the bathroom she feels like she almost doesn't wipe good. Sunday was a terrible anxiety day -- she sees her psychiatrist and therapist to help with the anxiety. She did the botox shot but it is more the frequency of having to go to the bathroom. A new symptoms is when she has a BM and lays down she has to hold her lower abdomen and when she gets this pain she has diarrhea. It happens while she is walking. Tax Collection Coordinator Required: No Allergies cefuroxime [From CEFTIN] Allergy (Severe, Verified 06/19/23 12:54) HIVES HPI r/s appointment from 05/29/23 HPI Details Assessment & Plan (1) GERD (gastroesophageal reflux disease): Code(s): K21.9 - Gastro-esophageal reflux disease without esophagitis Plan: She feels she is doing better with the Viberzi 75mc bid and prn imodium. Her foul belching is less but will intermittently occur. Her appetite has been poor, but she is very stressed living with her family. She was better when she was out of state and away from her current situation. She has a social media marketing specialist looking for housing for her. She will do better with her own apt. She continues on protonix bid, reglan 10mg 1 tabs tid and 2 qhs and Viberzi 75mcg qd to bid. She will be due for repeat colonoscopy next year at age 48, her last was neg and in [address] Pinto. ROV 6 mos. (2) Gastroparesis: Code(s): K31.84 - Gastroparesis (3) Irritable bowel syndrome with diarrhea: Code(s): K58.0 - Irritable bowel syndrome with diarrhea Medications: Changed From kzgskc-isguyvll-qf ylase 24,000-76,00 0 -120,000 unit 2 caps PO QID 240 caps 6RF To cagobr-boftyibu-my ylase 24,000-76,00 0 -120,000 unit (Ruby nash) 2 caps PO QID 240 caps 6RF From metoclopramide HCl 1 tab tidac and 2 tabs qhs orally 4 times a day; 159 tabs 6RF K31.84 - Gastropar esis To metoclopramide HCl 1 tab tidac and 2 tabs qhs orally 4 times a day; 159 tabs 6RF K31.84 - Gastropar esis Refilled pantoprazole 40 mg PO BID 180 t abs 3RF K21.9 - Gastro-eso phageal reflux dis ease without esoph agitis Discontinued eluxadoline Dis continued Reason: Doctor's Order 100 mg PO BID 60 tabs 5RF K58.0 - Irritable bowel syndrome wit h diarrhea TODAY'S VISIT She started on Trulicity and this has slowed her stooling, and she still uses the Viberzi but at times skips doses. She is moving her bowels more frequently now with soft stooling. She is not having some rectal irritation and would like the cream with lidocaine. She will be having back injections and needs to hold her trulicity. SHe has lost weight recently, likely from Trulicity. She was told to wait an hour between her Tramadol and the Viberzi - given the ling 1/2 life of Viberzi this would not really have any effect and the low lever of opiate in the VIberzi does not necessitate this complication of her therapy. She continues to work with a therapist for her [place] and her feeling overwhelmed with her health problems. She will do better with her own apt. She continues on protonix bid, reglan 10mg 1 tabs tid and 2 qhsand Viberzi 75mcg qd to bid. She will have stomach pain with eating, but has been forgetting to take her reglan, same with qhs nausea. I educated her about how to use this and the reason why. She is hoping to get her new subsidized apt soon so that she will have less anxiety dealing with her family. RX CALLIE She is over due for colonoscopy her last in 2012. Her sister recently had one and had CRC, so this is important. ROV 6 mos and after scope. [facility] Medical History Hirsutism Varicose veins with pain Restless leg syndrome Congenital pulmonary arteriovenous malformation Urinary retention Epicondylitis, lateral Interstitial cystitis Spinal stenosis of lumbar region Chronic pain syndrome Disc degeneration, lumbar Spondylosis, lumbar, with myelopathy Obstructive sleep apnea Morbid obesity due to excess calories Interstitial cystitis Arthritis Fibromyalgia Migraines Hypothyroid Restrictive lung disease Allergic rhinitis AISHWARYA on CPAP Morbidly obese Surgical History Hx of spinal surgery Hx of cystoscopy Hx of colonoscopy History of esophagogastroduodenoscopy (EGD) Family History Father Alcoholism Mother Leukemia Maternal Aunt Breast cancer Sister Depression Vertigo Family/Other Heart problem Diabetes Cancer Brother Atherosclerotic cardiovascular disease Cardiomegaly Social History Household Members: Family Household Members Other:: niece Housing: Apartment Are you a primary care trainer to a significant other at home: No Do you presently have visiting nurse or other home services: Yes (RD MECHANICAL ENGINEER 9 hours /week) 75 years or older and lives alone: No Alcohol intake: never Comment: NONE Patient Tobacco Use Status: Never used Tobacco Second Hand Smoke Exposure: No Substance Use Type: Marijuana Current occupational status: disabled 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 Review of Systems Const Denies fatigue, Denies fever(s), Denies night sweats, Denies poor appetite and Reports weight loss ENT Reports Normal hearing present, Denies dental pain, Denies dysphagia, Denies hearing loss, Denies mouth pain, Denies odynophagia, Denies throat swelling, Denies tongue swelling and Reports other (Dentition adequate) Card Reports no additional complaints Resp Reports no additional complaints GI Details: Reports abdominal pain, Denies melena, Reports bloating, Denies hematochezia, Denies constipation, Denies GI cramping, Denies dysphagia, Denies excessive flatus, Reports early satiety, Reports heartburn, Denies diarrhea, Reports loose stools, Reports nausea, Denies odynophagia, Denies vomiting and Denies hematemesis Musc Reports back pain and Reports myalgias Skin/Breast Denies pruritus, Denies lesions, Denies rash and Denies jaundice Neuro Reports Normal hearing present, Denies Abnormal speech present and Reports memory loss Psych Reports anxiety, Reports depression, Denies hopelessness, Reports memory loss, Denies homicidal ideation and Denies suicidal ideation Endo Denies fatigue Aller/Immun Denies throat swelling and Denies tongue swelling Physical Exam Vital Signs: Last Vital Signs Pulse 68 06/19/23 12:53 BP 114/56 L 06/19/23 12:53 BMI result Body Mass Index 52.0 Const General: cooperative, no acute distress, well developed and well groomed Nutritional Appearance: well nourished and obese morbidly obese Orientation/consciousness: oriented to person, oriented to place and oriented to time Limitations: No language barrier HEENT Head: Yes normocephalic and Yes atraumatic Eyes General: appearance normal, both eyes and all related structures Pupils: Equal, round and reactive pupils present Neck Neck: Yes normal visual inspection and Yes no lymphadenopathy Thyroid: Thyroid normal Resp Effort & Inspection: normal respiratory effort and able to speak in complete sentences Auscultation: clear to auscultation bilaterally Cardio Rate: regular rate Rhythm: regular rhythm Heart sounds: Normal, physiologic split S2 sound present Peripheral pulses: radial pulses present and posterior tibial pulses present GI Inspection: No distended, Yes Abdominal panniculus present and Yes obesity Palpation (GI): Soft to palpation, nontender, no guarding, not rigid and No hepatosplenomegaly present Percussion: Yes normal to percussion Auscultation: normal bowel sounds Rectal Exam - Female: deferred Skin General skin exam: no rashes or lesions noted, turgor normal, skin not dry, no jaundice, No spider nevi and no striae Rashes: no rashes Nails: normal Neuro General: oriented to person, oriented to place and oriented to time Cranial nerves: Yes Equal, round and reactive pupils present and Yes Normal hearing present Speech: No Abnormal speech present Extrem General: Yes normal to inspection, No clubbing, No cyanosis and No edema Psych Appearance: grossly normal and well kempt Mental Status: mental status grossly normal Speech and movement: Normal speech and movement present Affect: normal affect Attitude: cooperative Thought process: Normal thought process present and not confabulating Thought content: Normal thought content present Insight: Limited insight present (Psych) Judgement: Limited judgement present (Psych) Assessment & Plan Assessment & Plan (1) Hemorrhoids: Code(s): K64.9 - Unspecified hemorrhoids (2) Family history of colon cancer: Comment: sister Code(s): Z80.0 - Family history of malignant neoplasm of digestive organs (3) Pre-op examination: Code(s): Z01.818 - Encounter for other preprocedural examination Plan She started on Trulicity and this has slowed her stooling, and she still uses the Viberzi but at times skips doses. She is moving her bowels more frequently now with soft stooling. She is not having some rectal irritation and would like the cream with lidocaine. She will be having back injections and needs to hold her trulicity. SHe has lost weight recently, likely from Trulicity. She was told to wait an hour between her Tramadol and the Viberzi - given the ling 1/2 life of Viberzi this would not really have any effect and the low lever of opiate in the VIberzi does not necessitate this complication of her therapy. She continues to work with a therapist for her [place] and her feeling overwhelmed with her health problems. She will do better with her own apt. She continues on protonix bid, reglan 10mg 1 tabs tid and 2 qhsand Viberzi 75mcg qd to bid. She will have stomach pain with eating, but has been forgetting to take her reglan, same with qhs nausea. I educated her about how to use this and the reason why. She is hoping to get her new subsidized apt soon so that she will have less anxiety dealing with her family. RX VIBERZI She is over due for colonoscopy her last in 2012. Her sister recently had one and had CRC, so this is important. ROV 6 mos and after scope. Orders: Orders Colonoscopy - GI Use Only Today Z01.818 - Encounter for other preprocedural examination, Z80.0 - Family history of malignant neoplasm of digestive organs Medications: New famotidine 40 mg PO DAILY 30 tabs 6RF lidocaine HCl-hydrocortison ac 3-0.5 % 1 appl HI BID 98 grams 3RF K64.9 - Unspecified hemorrhoids bisacodyl (Dulcolax (bisacodyl)) 10 mg (2 x 5 mg) PO BEDTIME 2 days 4 tabs 0RF Refilled pantoprazole 40 mg PO BID 180 tabs 6RF K21.9 - Gastro-esophageal reflux disease without esophagitis lrhxqe-qnkolhqm-qcxhkzz 24,000-76,000 -120,000 unit (Creon) 2 caps PO QID 240 caps 6RF metoclopramide HCl 1 tab tidac and 2 tabs qhs orally 4 times a day; 159 tabs 6RF K31.84 - Gastroparesis eluxadoline (Viberzi) must administer with a meal/food 75 mg PO BID 60 tabs 5RF Coding Level of Care Code Est Pt Level 3 (58073) Diagnoses Hemorrhoids K64.9 Family history of colon cancer Z80.0 Pre-op examination Z01.818
[2023-06-19 12:53] VITALS: BP 114/56; PULSE 68; BMI 52.0
== END 2023-06-19 13:24 | disposition home or self-care (01) ==
PROVIDERS: PCP Family Medicine; Visit Provider Nurse Practitioner
DX: K64.9 Unspecified hemorrhoids (principal); Z80.0 Family history of malignant neoplasm of digestive organs; Z01.818 Encounter for other preprocedural examination
CPT/HCPCS: 99213

== ENCOUNTER 2023-06-22 10:17 | Day surgery (SDC) | payer OTHER, SELFPAY ==
[2023-06-15 14:06] VITALS: BP 137/82; PULSE 77; RESP 16; O2SAT 98; BMI 52.5
--- NOTE | 2023-06-15 14:24 | P.CONAN_ITS ---
Documented by User: Kelly Leon NP 06/15/23 14:26 HPI - Anesthesia Eval Consult details Narrative: 47yo F for Bilateral L2-L3-L4-DR L5 Medial Branch Block No recent illness No CP/SOB with minimal activity. Occ anxiety attacks PMFSH Active Problems Active Problems: All Active Problems (Updated 06/15/23 @ 14:21 by Xiomy Cook, LONG) Lumbar radiculopathy (Acute) Greater trochanteric bursitis of left hip (Acute) Greater trochanteric bursitis of right hip (Acute) Proteinuria (Acute) Fungal infection of skin of abdomen (Acute) Diabetes mellitus (Acute) Urinary frequency (Acute) Spondylosis of lumbar region without myelopathy or radiculopathy (Acute) Patellofemoral arthralgia of right knee (Acute) Mixed incontinence urge and stress (Acute) Hemorrhoids (Acute) Obstructive sleep apnea (Acute) Hypothyroidism (Acute) Hypertension (Acute) Patellofemoral arthralgia of both knees (Acute) Urinary retention (Acute) Left lateral epicondylitis (Acute) Left forearm pain (Acute) Nocturia more than twice per night (Acute) Nausea and vomiting (Acute) Irritable bowel syndrome with diarrhea (Acute) Gastroparesis (Acute) GERD (gastroesophageal reflux disease) (Acute) Urinary retention (Acute) Epicondylitis, lateral (Acute) Interstitial cystitis (Acute) Spinal stenosis of lumbar region (Acute) Chronic pain syndrome (Acute) Disc degeneration, lumbar (Acute) Spondylosis, lumbar, with myelopathy (Acute) Obstructive sleep apnea (Acute) Morbid obesity due to excess calories (Acute) Restrictive lung disease (Acute) Allergic rhinitis (Acute) AISHWARYA on CPAP (Acute) Morbidly obese (Acute) Past Medical History Medical History (Updated 06/21/23 @ 10:15 by Rhonda Escobar RN) Diabetes Hirsutism Varicose veins with pain Restless leg syndrome Congenital pulmonary arteriovenous malformation Urinary retention Epicondylitis, lateral Interstitial cystitis Spinal stenosis of lumbar region Chronic pain syndrome Disc degeneration, lumbar Spondylosis, lumbar, with myelopathy Morbid obesity due to excess calories Arthritis Fibromyalgia Migraines Hypothyroid Restrictive lung disease Allergic rhinitis AISHWARYA on CPAP Family History Family History Father Alcoholism Mother Leukemia Maternal Aunt Breast cancer Sister Depression Vertigo Family/Other Heart problem Diabetes Cancer Brother Atherosclerotic cardiovascular disease Cardiomegaly Family history of problems with anesthesia: No Surgical History Surgical History Hx of spinal surgery Hx of cystoscopy Hx of colonoscopy History of esophagogastroduodenoscopy (EGD) History of Problems with Anesthesia: No Social History Social History Household Members: Family Household Members Other:: niece Housing: Apartment Are you a primary neonatal critical care nurse to a significant other at home: No Do you presently have visiting nurse or other home services: Yes (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 Meds Allergies Allergy/AdvReac Type Severity Reaction Status Date / Time cefuroxime [From CEFTIN] Allergy Severe HIVES Verified 06/22/23 10:49 Home Medications Medication Instructions Recorded Confirmed Last Taken Type hydrochlorothiazide 25 mg tablet 25 mg PO QAM 03/02/20 06/18/23 02/04/23 History montelukast 10 mg tablet 10 mg PO BEDTIME 03/02/20 06/18/23 02/04/23 History polyvinyl alcohol 1.4 % eye drops 1 drp ophthalmic (eye) QID PRN Dry 10/08/20 06/18/23 Unknown History Eyes zolpidem 10 mg tablet 10 mg PO BEDTIME PRN Insomnia 10/08/20 06/18/23 02/04/23 History nystatin 100,000 unit/gram topical 1 appl topical BID 12/30/20 06/18/23 Unknown History powder betamethasone valerate 0.1 % 1 appl topical BID 05/24/21 06/18/23 Unknown History topical cream blood pressure test kit-large #1 ea 08/02/21 03/14/23 Unknown History lanolin alcohols-mineral 1 appl topical BID PRN Rash 08/02/21 06/15/23 Unknown History oil-w.petrolatum-ceresin topical cream (Minerin Creme topical) losartan 100 mg tablet 100 mg PO DAILY 08/02/21 06/18/23 02/04/23 History mineral oil-hydrophil petrolat 1 appl topical DAILY 08/02/21 06/18/23 Unknown History topical ointment (petrolatum topical ointment) cyclobenzaprine 10 mg tablet 10 mg PO BEDTIME 03/07/22 06/18/23 02/04/23 History verapamil 240 mg 24 hr 240 mg PO DAILY 03/07/22 06/18/23 02/04/23 History capsule,extended release blood sugar diagnostic (FreeStyle #10 ea 04/19/22 03/14/23 Unknown History Lite Strips) blood-glucose meter (FreeStyle #1 ea 04/19/22 03/14/23 Unknown History [place] Lite kit) lancets 33 gauge (TRUEplus Lancets) #100 ea 04/19/22 03/14/23 Unknown History levothyroxine 200 mcg tablet 200 mcg PO QAM 04/19/22 06/18/23 02/04/23 History levothyroxine 75 mcg tablet 75 mcg PO DAILY 04/19/22 06/18/23 02/04/23 History acetaminophen 650 mg 650 mg PO BID 05/10/22 06/18/23 Unknown History tablet,extended release naloxone 4 mg/actuation nasal 1 spray intranasal Q2M PRN Opiate 05/10/22 06/18/23 Unknown History spray (Narcan) Reversal cholecalciferol (vitamin D3) 50 50 mcg PO QPM 06/29/22 06/18/23 02/04/23 History mcg (2,000 unit) capsule (Vitamin D3) empagliflozin 10 mg tablet 10 mg PO QAM 06/29/22 06/18/23 02/01/23 History (Jardiance) tizanidine 2 mg tablet 2 mg PO TID 06/29/22 06/15/23 02/04/23 History tramadol 50 mg tablet 50 mg PO Q6H PRN pain 06/29/22 06/18/23 02/03/23 History dulaglutide 0.75 mg/0.5 mL 0.75 mg subcut QWEEK 07/27/22 06/18/23 01/27/23 History subcutaneous pen injector (Trulicity) escitalopram oxalate 20 mg tablet 20 mg PO DAILY 07/27/22 06/18/23 02/04/23 Hist ory fluticasone propionate 50 1 spray intranasal DAILY 07/27/22 06/18/23 Unknown History mcg/actuation nasal spray,suspension hydralazine 100 mg tablet 100 mg PO BID 07/27/22 06/18/23 02/04/23 History clonazepam 0.5 mg tablet 0.5 mg PO TID PRN Anxiety 03/14/23 06/18/23 Unknown History baclofen 10 mg tablet 10 mg PO BID 06/19/23 Unknown History diclofenac sodium 1 % topical gel topical BID 06/19/23 Unknown History ergocalciferol (vitamin D2) 1,250 1,250 mcg PO QWEEK 06/19/23 Unknown History mcg (50,000 unit) capsule gabapentin 600 mg tablet 600 mg PO TID 06/19/23 Unknown History loratadine 10 mg tablet 10 mg PO DAILY 06/19/23 Unknown History mometasone 100 mcg/actuation HFA 2 puff inhalation BID 06/19/23 Unknown History aerosol inhaler (Asmanex HFA) Exam Height,Weight and Vital Signs: Height 5 ft 1 in Weight 126.099 kg Last Vital Signs Pulse 77 06/15/23 14:06 Resp 16 06/15/23 14:06 BP 137/82 06/15/23 14:06 Pulse Ox 98 06/15/23 14:06 O2 Del Method Room Air 06/15/23 14:06 Assessment and Plan Final Anesthetic Review Family History of Problems with Anesthesia: No History of Problems with Anesthesia: No Documented by User: Axel Roger MD 06/22/23 10:52 [facility] Past Medical History Medical History (Updated 06/21/23 @ 10:15 by Rhonda Escobar RN) Diabetes Hirsutism Varicose veins with pain Restless leg syndrome Congenital pulmonary arteriovenous malformation Urinary retention Epicondylitis, lateral Interstitial cystitis Spinal stenosis of lumbar region Chronic pain syndrome Disc degeneration, lumbar Spondylosis, lumbar, with myelopathy Morbid obesity due to excess calories Arthritis Fibromyalgia Migraines Hypothyroid Restrictive lung disease Allergic rhinitis AISHWARYA on CPAP Family History Family History Father Alcoholism Mother Leukemia Maternal Aunt Breast cancer Sister Depression Vertigo Family/Other Heart problem Diabetes Cancer Brother Atherosclerotic cardiovascular disease Cardiomegaly Surgical History Surgical History Hx of spinal surgery Hx of cystoscopy Hx of colonoscopy History of esophagogastroduodenoscopy (EGD) Social History Social History Household Members: Family Household Members Other:: niece Housing: Apartment Are you a primary neonatal critical care nurse to a significant other at home: No Do you presently have visiting nurse or other home services: Yes (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 Meds Allergies Allergy/AdvReac Type Severity Reaction Status Date / Time cefuroxime [From CEFTIN] Allergy Severe HIVES Verified 06/22/23 10:49 Home Medications Medication Instructions Recorded Confirmed Last Taken Type hydrochlorothiazide 25 mg tablet 25 mg PO QAM 03/02/20 06/18/23 02/04/23 History montelukast 10 mg tablet 10 mg PO BEDTIME 03/02/20 06/18/23 02/04/23 History polyvinyl alcohol 1.4 % eye drops 1 drp ophthalmic (eye) QID PRN Dry 10/08/20 06/18/23 Unknown History Eyes zolpidem 10 mg tablet 10 mg PO BEDTIME PRN Insomnia 10/08/20 06/18/23 02/04/23 History nystatin 100,000 unit/gram topical 1 appl topical BID 12/30/20 06/18/23 Unknown History powder betamethasone valerate 0.1 % 1 appl topical BID 05/24/21 06/18/23 Unknown History topical cream blood pressure test kit-large #1 ea 08/02/21 03/14/23 Unknown History lanolin alcohols-mineral 1 appl topical BID PRN Rash 08/02/21 06/15/23 Unknown History oil-w.petrolatum-ceresin topical cream (Minerin Creme topical) losartan 100 mg tablet 100 mg PO DAILY 08/02/21 06/18/23 02/04/23 History mineral oil-hydrophil petrolat 1 appl topical DAILY 08/02/21 06/18/23 Unknown History topical ointment (petrolatum topical ointment) cyclobenzaprine 10 mg tablet 10 mg PO BEDTIME 03/07/22 06/18/23 02/04/23 History verapamil 240 mg 24 hr 240 mg PO DAILY 03/07/22 06/18/23 02/04/23 History capsule,extended release blood sugar diagnostic (FreeStyle #10 ea 04/19/22 03/14/23 Unknown History Lite Strips) blood-glucose meter (FreeStyle #1 ea 04/19/22 03/14/23 Unknown History [place] Lite kit) lancets 33 gauge (TRUEplus Lancets) #100 ea 04/19/22 03/14/23 Unknown History levothyroxine 200 mcg tablet 200 mcg PO QAM 04/19/22 06/18/23 02/04/23 History levothyroxine 75 mcg tablet 75 mcg PO DAILY 04/19/22 06/18/23 02/04/23 History acetaminophen 650 mg 650 mg PO BID 05/10/22 06/18/23 Unknown History tablet,extended release naloxone 4 mg/actuation nasal 1 spray intranasal Q2M PRN Opiate 05/10/22 06/18/23 Unknown History spray (Narcan) Reversal cholecalciferol (vitamin D3) 50 50 mcg PO QPM 06/29/22 06/18/23 02/04/23 History mcg (2,000 unit) capsule (Vitamin D3) empagliflozin 10 mg tablet 10 mg PO QAM 06/29/22 06/18/23 02/01/23 History (Jardiance) tizanidine 2 mg tablet 2 mg PO TID 06/29/22 06/15/23 02/04/23 History tramadol 50 mg tablet 50 mg PO Q6H PRN pain 06/29/22 06/18/23 02/03/23 History dulaglutide 0.75 mg/0.5 mL 0.75 mg subcut QWEEK 07/27/22 06/18/23 01/27/23 History subcutaneous pen injector (Trulicity) escitalopram oxalate 20 mg tablet 20 mg PO DAILY 07/27/22 06/18/23 02/04/23 History fluticasone propionate 50 1 spray intranasal DAILY 07/27/22 06/18/23 Unknown History mcg/actuation nasal spray,suspension hydralazine 100 mg tablet 100 mg PO BID 07/27/22 06/18/23 02/04/23 History clonazepam 0.5 mg tablet 0.5 mg PO TID PRN Anxiety 03/14/23 06/18/23 Unknown History baclofen 10 mg tablet 10 mg PO BID 06/19/23 Unknown History diclofenac sodium 1 % topical gel topical BID 06/19/23 Unknown History ergocalciferol (vitamin D2) 1,250 1,250 mcg PO QWEEK 06/19/23 Unknown History mcg (50,000 unit) capsule gabapentin 600 mg tablet 600 mg PO TID 06/19/23 Unknown History loratadine 10 mg tablet 10 mg PO DAILY 06/19/23 Unknown History mometasone 100 mcg/actuation HFA 2 puff inhalation BID 06/19/23 Unknown History aerosol inhaler (Asmanex HFA) Exam Airway Mallampati Class: IV TM Dist: <=3cm Neck ROM: Full Loose/Missing/Broken Teeth: No Heart: rrr Lungs: cta b/l but diminished Assessment and Plan Assessment Anesthesia Assessment: Anesthesia Plan Discussed and Chart Reviewed Final Anesthetic Review NPO: Yes ASA Class: III Final Preanesthetic Review: No Changes in Pt Med Stat, Meds/Allgs Chart Reviewed, Consent Obtained/Reviewed and Anes Risks/Benef Reviewed Patient Risk: Intermediate Procedure Risk: Intermediate Anesthetic Plan Anesthetic Plan: MAC: Disposition: Standard PACU
--- NOTE | ~2023-06-22 | FL_ITS ---
EXAMINATION: XR FLUOROSCOPY WITH IMAGES CLINICAL INFORMATION: Intraoperative fluoroscopy. COMPARISON: None available. TECHNIQUE: Fluoroscopy Supervised By: Dr. Jayce Wright. Fluoroscopy Time: 1 minute and 8.4 seconds. Cumulative Dose: 47.439 mGy. DAP: 20.635 mGym2. Images: 8. FINDINGS: The submitted image shows injection needles and injected contrast in the vicinity of the bilateral L3-L4 and L4-L5 neural foramina. FL/FL guidance in OR IMPRESSION: Intraoperative fluoroscopy is provided during lumbar pain management procedure. Please see the patient's Operative Report for full procedural details.
[2023-06-22 10:46] LABS: UPreg QC Valid YES; Urine Pregnancy NEGATIVE (NEGATIVE)
[2023-06-22 10:50] VITALS: BP 148/93; PULSE 74; RESP 18; TEMP 36.7; O2SAT 99
[2023-06-22] MEDS: Lactated Ringers 1,000 ML 80 ML IVCONT (10:55)
--- NOTE | 2023-06-22 10:57 | MHC.SHP ---
Pre-Procedural Eval Section A - 24 Hr Update-Section A only Date of Service: 06/22/23 The patient is an INPATIENT: No Changes since office visit: Yes Patient answered all questions The patient has been examined within 24 hours of the surgical procedure. The History & Physical has been completed within 30 days and I have reviewed it.: No Section B - Complete if H&P > 30 days Chief Complaint: Spondylosis without myelopathy or radiculopathy, Details of Present Illness: As above Relevant Social History: None Present Medications: None Medical History: No relevant PMH History of Previous Operations: Relevant previous surgery/procedure and date(s) (Several lumbar medial branch blocks therapeutic were performed on this patient in the past. The all lasted 4-5 month.) Allergies: Allergies Allergy/AdvReac Type Severity Reaction Status Date / Time cefuroxime [From CEFTIN] Allergy Severe HIVES Verified 06/22/23 10:49 Review of Systems Sugical H&P ROS: Negative: Cardiovascular, Respiratory, Neurological, Psychiatric, Hem-Onc, Allergic/Immunologic, Gastrointestinal, Genitourinary, Integumentary, Endocrine and Eyes/Ears/Nose/Throat and Yes, Specify: Constitution (Morbid obesity) and Musculoskeletal (Spondylosis lumbar) Exam Surgical H&P Exam: Normal: HEENT, Normal: Heart, Normal: Lungs, Normal: Extremities, Normal: Skin and Normal: Neurological and Significant Findings: Abdomen (And large due to s/q & i/a fat) Plan Diagnosis/Plan: Unchanged I have reviewed the history and physical and performed a pertinent physical examination on my patient. No changes have occurred unless specified. I will perform therapeutic lumbar 2, lumbar 3, lumbar 4, dorsal ramus lumbar 5 bilateral medial branch block. Time Spent With Patient Time: Total time managing care of this patient today ____ minutes.
[2023-06-22 11:00] LABS: Glucose, Whole Blood 89 mg/dL (60-115)
[2023-06-22 11:12] VITALS: BMI 52.0
[2023-06-22 12:34] VITALS: BP 126/82; PULSE 82; RESP 24; TEMP 36.3; O2SAT 96
[2023-06-22 12:39] VITALS: BP 134/88; PULSE 67; RESP 22; O2SAT 97
[2023-06-22 12:44] VITALS: BP 137/86; PULSE 70; RESP 21; O2SAT 98
--- NOTE | 2023-06-22 12:48 | PM.OP ---
Brief Operative Note Date of Service: 06/22/23 Pre-op diagnosis: Spondylosis lumbar without myelopathy or radiculopathy. Post-op diagnosis: same Procedure: Therapeutic medial branch block L2-L3 L4 does ramus L5. Surgeon: Jayce Wright MD Anesthesia: MAC Was an Creative Perfumer used for this Procedure?: No Estimated blood loss (mL): 0 Condition: stable Disposition: PACU
[2023-06-22 12:49] VITALS: BP 144/87; PULSE 73; RESP 15; O2SAT 97
--- NOTE | 2023-06-22 12:49 | W.PM.OPN ---
Operative Note Operative Note Date of Service: 06/22/23 Narrative: Therapeutic medial branch block L2, L3,L4 dorsal ramus L5 bilateral.? ? ?Informed consent was explained to the patient. All questions were explained and? answered.? The patient was taken inside the operating room where she was positioned prone on the operating table. [place] [employer] monitors were applied and patient was moderately to deeply sedated. Time-out was performed delineating correct site, side, the nature of the procedure, patient's allergy, . All operating room staff was participating in OR time-out procedure. ? ? The lower back was prepped with ChloraPrep and draped with sterile towels.? C-arm was brought over the operating field and sq picture of L3, L4-, L5 vertebra and S1 AREA were delineated on the screen.? Point of interest were delineated as confluence of superior articular process of L4 and L5 vertebra bilaterally with corresponding transverse processes as well as confluence of the sacral alae bilaterally with superior articular process of S1.? The projection of the point of interest to the skin were injected with the small amount of local anesthetic lidocaine 2% 1-1.5 cc.? After that 22 gauge 5 inch spinal needle was driven sequentially to the points of interest in tunnel vision fashion. After needles gently contacted the bone at the point of interests the needle was injected with small amount of the contrast.? The injection of the contrast did not demonstrate any intravascular or intrathecal spread of the contrast.? After that injection of the? ropivacaine 0.5%-1cc mixed with Kenalog was performed at each needle location.??Total dose of Kenalog was 40 mg. after that the needles were removed and Bandaids were applied. ? Upon completion of the injections? needle was? removed and sterile Band-Aids were applied.? The patient tolerated procedure very well. She was taken outside of the operating room to recovery room. She recovered uneventfully.
[2023-06-22 13:04] VITALS: BP 145/89; PULSE 78; RESP 14; TEMP 36.3; O2SAT 98
== END 2023-06-22 13:54 | disposition home or self-care (01) ==
PROVIDERS: Anesthesiology; PCP Family Medicine; Visit Provider Anesthesiology
PROC: (CPT 64493; principal; 2023-06-22 13:00)
DX: M47.816 Spondylosis without myelopathy or radiculopathy, lumbar region (principal); G89.4 Chronic pain syndrome; M48.061 Spinal stenosis, lumbar region without neurogenic claudication; M51.36 Other intervertebral disc degeneration, lumbar region; G47.33 Obstructive sleep apnea (adult) (pediatric); E66.01 Morbid (severe) obesity due to excess calories; Z79.85 Long-term (current) use of injectable non-insulin antidiabetic drugs; Z79.84 Long term (current) use of oral hypoglycemic drugs; Z79.51 Long term (current) use of inhaled steroids; Z79.899 Other long term (current) drug therapy; Z88.8 Allergy status to other drugs, medicaments and biological substances
CPT/HCPCS: 64493; 64494; 81025; 82947; J2250; J2405; J2704; J2795; J3301; Q9967

== ENCOUNTER → 2023-06-22 10:17 | Outpatient (BNV) | payer OTHER, SELFPAY | PROVIDERS: PCP Family Medicine; Visit Provider Anesthesiology | DX: M47.816 Spondylosis without myelopathy or radiculopathy, lumbar region (principal) | CPT/HCPCS: 64493; 64494 ==

== ENCOUNTER 2023-06-28 00:27 | Inpatient (IN) | payer OTHER, SELFPAY ==
[2023-06-28] VITALS (8 sets, daily range): BP systolic 118–174; BP diastolic 65–120; PULSE 52–98; RESP 16–24; TEMP 36–37; O2SAT 95–98; BMI 52.0; BMI 52.5
--- NOTE | 2023-06-28 | ECG_ITS ---
Test Reason : CHEST TIGHTNESS Blood Pressure : / mmHG Vent. Rate : 063 BPM Atrial Rate : 063 BPM P-R Int : 140 ms QRS Dur : 084 ms QT Int : 398 ms P-R-T Axes : 045 025 028 degrees QTc Int : 407 ms Normal sinus rhythm Normal ECG When compared with ECG of 08-FEB-2023 13:19, No significant change was found Referred By: Generic ED Physician Electronically Signed By:LINDA MURILLO
--- NOTE | ~2023-06-28 | MR_ITS ---
EXAMINATION: MR MRCP WITHOUT CONTRAST CLINICAL INFORMATION: Abdominal pain, elevated lipase and LFTs COMPARISON: CT abdomen and pelvis, 06/28/23 TECHNIQUE: MRCP of the abdomen without contrast was obtained using routine sequences. FINDINGS: LUNG BASES: Trace bilateral pleural effusions, new from prior. ABDOMINAL AND PELVIC WALL: Unremarkable. LIVER AND BILIARY TREE: Common bile duct measures 9 mm which is within expected limits for the postcholecystectomy state, with no intraluminal filling defect to suggest choledocholithiasis. No intrahepatic biliary duct dilatation. Mild loss of signal in the liver on opposed phase imaging suggesting hepatic steatosis. GALLBLADDER: Status post cholecystectomy. PANCREAS: No peripancreatic inflammatory fat stranding. No pancreatic duct dilatation. Pancreas divisum with the main pancreatic duct draining into the minor papilla.. SPLEEN: Unremarkable. ADRENAL GLANDS: Unremarkable. KIDNEYS AND URETERS: Unremarkable. GASTROINTESTINAL TRACT: Unremarkable. VASCULAR: Unremarkable. LYMPH NODES/PERITONEUM: No lymphadenopathy. FREE FLUID: None. OSSEOUS STRUCTURES: Unremarkable. MR/MR MRCP IMPRESSION: 1. Pancreas divisum. No peripancreatic inflammatory fat stranding or pancreatic duct dilatation. 2. Common bile duct measures 9 mm which is within expected limits for the postcholecystectomy state, with no intraluminal filling defect to suggest choledocholithiasis. 3. Mild hepatic steatosis. 4. Trace bilateral pleural effusions, new from prior.
--- NOTE | ~2023-06-28 | XR_ITS ---
EXAMINATION: XR CHEST CLINICAL INFORMATION: Chest pain. COMPARISON: 06/19/2023 TECHNIQUE: Frontal view of the chest was obtained. FINDINGS: The lung volumes are low. The cardiomediastinal silhouette is stable. There is no focal lung consolidation or pleural effusion. The bony structures and soft tissues are unremarkable. XR/XR chest 1V IMPRESSION: Low lung volumes. No acute cardiopulmonary process.
--- NOTE | ~2023-06-28 | CT_ITS ---
EXAMINATION: CT ABDOMEN AND PELVIS WITH CONTRAST CLINICAL INFORMATION: Abdominal pain. Concern for pancreatitis. COMPARISON: 09/21/2015. TECHNIQUE: Multidetector volumetric images were obtained from the superior aspect of the liver through the pubic symphysis following administration 100 mL of Omnipaque 350 intravenous contrast. Sagittal and coronal reformatted images were obtained on the technologist's workstation. Oral contrast: No This CT examination was performed using dose optimization techniques as appropriate, variously including the following: *Automated exposure control *Adjustment of mA and/or kV according to patient size (this includes techniques or standardized protocols for targeted exams where dose is matched to indication/reason for exam; i.e. extremities or head) *Use of iterative reconstruction technique DLP: 1015 mGy-cm FINDINGS: LUNG BASES: The visualized lung bases are unremarkable. LIVER, GALLBLADDER, AND BILIARY TREE: The liver is normal in size, shape, and attenuation. No focal hepatic lesion or biliary ductal dilatation is present. There has been a prior cholecystectomy. PANCREAS: Unremarkable. SPLEEN: Unremarkable. ADRENAL GLANDS: Unremarkable. KIDNEYS AND URETERS: The kidneys are normal in size, shape, and attenuation. There are two adjacent 2 mm calculi upper pole left kidney. There is no hydronephrosis. BLADDER: Unremarkable. GASTROINTESTINAL TRACT: The small and large bowel are unremarkable. The appendix is unremarkable. ABDOMINAL WALL: No significant hernia is appreciated. LYMPH NODES: Normal. VASCULAR: Unremarkable. PELVIC VISCERA: Unremarkable. OSSEOUS STRUCTURES: There is diffuse thoracolumbar disc degenerative change. There is a prominent posterior osteophyte at L3-L4 with moderate spinal canal narrowing CT/CT abdomen pelvis w IV con IMPRESSION: 1. No acute abnormality. 2. There are two adjacent 2 mm calculi upper pole left kidney. There is no hydronephrosis. 3. There is diffuse thoracolumbar disc degenerative change. There is a prominent posterior osteophyte at L3-L4 with moderate spinal canal narrowing. Fleischner guidelines were followed.
--- NOTE | 2023-06-28 01:15 | ED_ITS ---
HPI - Chest Pain General Chief Complaint: Chest Pain Stated Complaint: cp SOB Time Seen by Provider: 06/28/23 00:27 History of Present Illness HPI narrative: Patient is a 48-year-old female presents today with having chest pain. The chest pain is in the lower chest. It is not associated with diaphoresis. Positive shortness of breath associated with the pain. The pain is sharp. Not made worse with deep inspiration. No history of blood clots in the past. Positive history of diabetes, hypertension no history of hypercholesterolemia no history of smoking no history of [place] positive family history of coronary artery disease patient's brother had CAD at the age of 50 and . Patient denies any new leg swelling. Not on blood thinners. She is from home. No travel history. Has a history of anxiety but she said this is a little different. Related Data Home Medications Medication Instructions Recorded Confirmed hydrochlorothiazide 25 mg tablet 25 mg PO QAM 03/02/20 06/18/23 montelukast 10 mg tablet 10 mg PO BEDTIME 03/02/20 06/18/23 polyvinyl alcohol 1.4 % eye drops 1 drp ophthalmic (eye) QID PRN Dry 10/08/20 06/18/23 Eyes zolpidem 10 mg tablet 10 mg PO BEDTIME PRN Insomnia 10/08/20 06/18/23 nystatin 100,000 unit/gram topical 1 appl topical BID 12/30/20 06/18/23 powder betamethasone valerate 0.1 % 1 appl topical BID 05/24/21 06/18/23 topical cream blood pressure test kit-large #1 ea 08/02/21 03/14/23 lanolin alcohols-mineral 1 appl topical BID PRN Rash 08/02/21 06/15/23 oil-w.petrolatum-ceresin topical cream (Minerin Creme topical) losartan 100 mg tablet 100 mg PO DAILY 08/02/21 06/18/23 mineral oil-hydrophil petrolat 1 appl topical DAILY 08/02/21 06/18/23 topical ointment (petrolatum topical ointment) cyclobenzaprine 10 mg tablet 10 mg PO BEDTIME 03/07/22 06/18/23 verapamil 240 mg 24 hr 240 mg PO DAILY 03/07/22 06/18/23 capsule,extended release blood sugar diagnostic (FreeStyle #10 ea 04/19/22 03/14/23 Lite Strips) blood-glucose meter (FreeStyle #1 ea 04/19/22 03/14/23 [place] Lite kit) lancets 33 gauge (TRUEplus Lancets) #100 ea 04/19/22 03/14/23 levothyroxine 200 mcg tablet 200 mcg PO QAM 04/19/22 06/18/23 levothyroxine 75 mcg tablet 75 mcg PO DAILY 04/19/22 06/18/23 acetaminophen 650 mg 650 mg PO BID 05/10/22 06/18/23 tablet,extended release naloxone 4 mg/actuation nasal 1 spray intranasal Q2M PRN Opiate 05/10/22 06/18/23 spray (Narcan) Reversal cholecalciferol (vitamin D3) 50 50 mcg PO QPM 06/29/22 06/18/23 mcg (2,000 unit) capsule (Vitamin D3) empagliflozin 10 mg tablet 10 mg PO QAM 06/29/22 06/18/23 (Jardiance) tizanidine 2 mg tablet 2 mg PO TID 06/29/22 06/15/23 tramadol 50 mg tablet 50 mg PO Q6H PRN pain 06/29/22 06/18/23 dulaglutide 0.75 mg/0.5 mL 0.75 mg subcut QWEEK 07/27/22 06/18/23 subcutaneous pen injector (Trulicity) escitalopram oxalate 20 mg tablet 20 mg PO DAILY 07/27/22 06/18/23 fluticasone propionate 50 1 spray intranasal DAILY 07/27/22 06/18/23 mcg/actuation nasal spray,suspension hydralazine 100 mg tablet 100 mg PO BID 07/27/22 06/18/23 clonazepam 0.5 mg tablet 0.5 mg PO TID PRN Anxiety 03/14/23 06/18/23 baclofen 10 mg tablet 10 mg PO BID 06/19/23 diclofenac sodium 1 % topical gel topical BID 06/19/23 ergocalciferol (vitamin D2) 1,250 1,250 mcg PO QWEEK 06/19/23 mcg (50,000 unit) capsule gabapentin 600 mg tablet 600 mg PO TID 06/19/23 loratadine 10 mg tablet 10 mg PO DAILY 06/19/23 mometasone 100 mcg/actuation HFA 2 puff inhalation BID 06/19/23 aerosol inhaler (Asmanex HFA) Previous Rx's Medication Instructions Recorded menthol 0.44 %-zinc oxide 20.6 % 1 appl topical QID PRN skin 04/13/22 topical ointment (Calmoseptine) irritation #113 grams pentosan polysulfate sodium 100 mg 200 mg (2 x 100 mg) PO BID 90 days 11/02/22 capsule (Elmiron) #360 caps loperamide 2 mg capsule 4 mg (2 x 2 mg) PO BID #120 caps 12/29/22 solifenacin 5 mg tablet (Vesicare) 10 mg (2 x 5 mg) PO DAILY 90 days 01/01/23 #180 tabs ondansetron HCl 4 mg tablet 4 mg PO TID PRN for 03/30/23 nausea/vomiting #90 tabs albuterol sulfate 90 mcg/actuation 2 puff inhalation Q4-6H PRN 06/19/23 aerosol inhaler shortness of breath or wheezing #1 ea bisacodyl 5 mg tablet,delayed 10 mg (2 x 5 mg) PO BEDTIME 2 days 06/19/23 release (Dulcolax (bisacodyl)) #4 tabs eluxadoline 75 mg tablet (Viberzi) 75 mg PO BID #60 tabs 06/19/23 famotidine 40 mg tablet 40 mg PO DAILY #30 tabs 06/19/23 lidocaine 3 %-hydrocortisone 0.5 % 1 appl NE BID #98 grams 06/19/23 rectal cream frspqz-amhjasuc-zynqyza 2 cap PO QID #240 caps 06/19/23 24,000-76,000-120,000 unit capsule,delayed rel (Creon) metoclopramide HCl 10 mg tablet See Rx Instructions PO QID #159 06/19/23 tabs pantoprazole 40 mg tablet,delayed 40 mg PO BID #180 tabs 06/19/23 release Allergies Allergy/AdvReac Type Severity Reaction Status Date / Time cefuroxime [From CEFTIN] Allergy Severe HIVES Verified 06/22/23 10:49 Review of Systems 2 Review of Systems: Positive chest pain Yes all other systems are reviewed and are negative PMFSH Past Medical History Medical History Diabetes Hirsutism Varicose veins with pain Restless leg syndrome Congenital pulmonary arteriovenous malformation Urinary retention Epicondylitis, lateral Interstitial cystitis Spinal stenosis of lumbar region Chronic pain syndrome Disc degeneration, lumbar Spondylosis, lumbar, with myelopathy Morbid obesity due to excess calories Arthritis Fibromyalgia Migraines Hypothyroid Restrictive lung disease Allergic rhinitis AISHWARYA on CPAP Surgical History Hx of spinal surgery Hx of cystoscopy Hx of colonoscopy History of esophagogastroduodenoscopy (EGD) Family History Family History Father Alcoholism Mother Leukemia Maternal Aunt Breast cancer Sister Depression Vertigo Family/Other Heart problem Diabetes Cancer Brother Atherosclerotic cardiovascular disease Cardiomegaly Social History Social History Household Members: Family Household Members Other:: niece Housing: Apartment Are you a primary healthcare customer service to a significant other at home: No Do you presently have visiting nurse or other home services: Yes (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) Alcohol intake: never Comment: NONE Patient Tobacco Use Status: Never used Tobacco Smoked in Last 30 Days: No Second Hand Smoke Exposure: No Use of substances other than those prescribed or required for medical reasons: No Substance Use Type: Marijuana Advance Directives: No Advance Directives Information Provided: Yes Patient : No Current occupational status: disabled 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 Oriented X3. No acute distress. Eyes: Pupils equal, round and reactive to light. ENT: Pharynx normal. Neck: Normal inspection. Neck supple. No lymph nodes noted. No crepitus CVS: Normal heart rate and rhythm. Pulses normal. Normal S1 and S2 Respiratory: No respiratory distress. Breath sounds normal. No Wheezing. No rales Abdomen: Soft and nontender. No rigidity. No distention. good BS x4 Skin: Skin warm and dry. Normal skin color. Normal skin turgor. Extremities: No lower extremity edema. Neurovascular intact to all extremities. No Lacerations. No Rash Neuro: Oriented X 3. No motor deficit. No sensory deficit. Moving all extermities. No slurred speech Course Course Course Narrative: This is an RME: Additional HPI, ROS, PE not included below will be deferred to primary provider. 48 year old female presents for epigstric pain ( w/ radiation to lower abomen), sob, light headedness anxiety all of which started an hour CLINICAL LIAISON while she was shredding paper. She tells me that she feels like her anxiety is contrbuting. Medications Administered Discontinued Medications Generic Name Dose Route Start Last Admin Trade Name Freq PRN Reason Stop Dose Admin Iohexol 100 ml 06/28/23 03:39 06/28/23 03:40 Iohexol 350 Mg/Ml 100 Ml Infus..Btl IV 06/28/23 03:40 100 ml ONCE ONE Administration Medical Decision Making Medical Decision Making [facility] Narrative: My interpretation of patient's EKG showed a sinus rhythm heart rate is 60 NE QRS QTC within normal limits is no acute ST segment elevation. Patient has multiple risk factors including diabetes hypertension and family history. However patient's pain is atypical for ACS. Her EKG is normal. A troponin is pending. No risk stratification done in the past. Will need close follow-up. Chest x- ray ordered for ruling out pneumonia pneumothorax. Electrolytes are pending. Because patient had pain that almost extend to the epigastric area lipase and LFTs ordered. Currently in no distress. Patient's LFTs are abnormal. Lipase is elevated at 389. Question pancreatitis. CT scan of the abdomen did not show any acute evidence of pancreatitis. Patient is status post cholecystectomy. Might need an ERCP/MRCP. Case discussed with the hospitalist team. Will admit for further evaluation. Currently in stable condition. Differential Diagnosis Differential Diagnoses: The differential diagnosis associated with the presentation includes Biliary issues, ACS, pneumonia, pneumothorax Admission/Observation Consideration of admission/observation: Escalation of care including admission/observation considered Lab Data [facility] Lab Attestation statement: I reviewed the patient's lab results. 06/28/23 02:34 06/28/23 02:34 Labs: Lab Results 06/28/23 06/28/23 Range/Units 02:06 02:34 WBC 15.2 H (4.8-10.8) X10*3/uL RBC 4.62 (4.20-5.50) X10*6/uL Hgb 13.9 (12.0-16.0) g/dl Hct 40.9 (37.0-47.0) % MCV 88.5 (80.0-98.0) fL MCH 30.1 (27.0-33.0) pg MCHC 34.0 (31.0-35.0) g/dl RDW 13.2 (11.0-16.0) % Plt Count 262 (160-400) X10*3/uL MPV 8.7 L (9.4-12.3) fL Immature Gran % (Auto) 0.4 (0.0-0.4) % Neut % (Auto) 76.0 H (45-73) % Lymph % (Auto) 16.2 L (20-40) % Humphreys % (Auto) 6.7 (2-11) % Eos % (Auto) 0.4 (0-4) % Baso % (Auto) 0.3 (0-2) % Lymph # (Auto) 2.5 (1.2-4.9) X10*3/uL Humphreys # (Auto) 1.0 (0.1-1.2) X10*3/uL Eos # (Auto) 0.1 (0.0-0.4) X10*3/uL Baso # (Auto) 0.0 (0.0-0.2) X10*3/uL Abs Immat Gran (auto) 0.06 H (0.00-0.03) X10*3/uL Absolute Neuts (auto) 11.5 H (2.0-8.3) x10*3/uL Absolute Nucleated RBC 0.000 (0.0-0.012) X10*3/uL Nucleated RBC % (auto) 0.0 (0.0-0.2) /100WBC Sodium 135 (135-145) mmol/L Potassium 4.1 (3.3-5.1) mmol/L Chloride 106 (96-108) mmol/L Carbon Dioxide 20 L (22-29) mmol/L Anion Gap 13 (12-20) BUN 15 (9-16) mg/dL Creatinine 0.67 (0.5-1.4) mg/dL Estim Creat Clear Calc 124.6 Estimated GFR > 60 Random Glucose 155 H (60-115) mg/dL Calcium 9.2 (8.4-10.2) mg/dL Total Bilirubin 1.1 H (0.0-1.0) mg/dL AST 223 H (5-31) U/L ALT 113 H (0-31) U/L Alkaline Phosphatase 78 (39-117) U/L Troponin I High Sens < 2.7 (<3.5-17.0) ng/L Total Protein 7.0 (6.5-8.0) g/dL Albumin 3.5 (3.5-5.0) g/dL Lipase 389 H (8-78) U/L Urine Color Dark Yellow Urine Appearance Cloudy Urine pH 5.5 (5.0-9.0) Ur Specific Bennett >= 1.030 H (1.005-1.025) Urine Protein Trace (Neg-Trace) mg/dL Urine Glucose (UA) Negative (Negative) mg/dL Urine Ketones Negative (Negative) mg/dL Urine Blood Negative (Negative) Urine Nitrite Negative (Negative) Ur Leukocyte Esterase Negative (Negative) Independent Interpretation I performed an independent interpretation of an: EKG (Sinus heart rate is 60 NE QRS QTC within normal limits is no acute ST segment elevation noted.) Discharge Plan Discharge Clinical Impression: Acute pancreatitis Patient Disposition: Admitted As Inpatient Prescriptions: No Action menthol-zinc oxide [Calmoseptine] 0.44-20.6 % ointment 1 appl topical QID PRN (Reason: skin irritation) Qty: 113 3RF Elmiron 100 mg capsule 200 mg PO BID 90 Days Qty: 360 1RF loperamide 2 mg capsule 4 mg PO BID Qty: 120 6RF solifenacin [Vesicare] 5 mg tablet 10 mg PO DAILY 90 Days Qty: 180 1RF ondansetron HCl 4 mg tablet 4 mg PO TID PRN (Reason: for nausea/vomiting) Qty: 90 3RF zolpidem 10 mg tablet 10 mg PO BEDTIME PRN (Reason: Insomnia) polyvinyl alcohol 1.4 % drops 1 drp ophthalmic (eye) QID PRN (Reason: Dry Eyes) clonazepam 0.5 mg tablet 0.5 mg PO TID PRN (Reason: Anxiety) nystatin 100,000 unit/gram powder 1 appl topical BID Narcan 4 mg/actuation spray,non-aerosol 1 spray intranasal Q2M PRN (Reason: Opiate Reversal) hydrochlorothiazide 25 mg tablet 25 mg PO QAM montelukast 10 mg tablet 10 mg PO BEDTIME Minerin Creme Cream 1 appl topical BID PRN (Reason: Rash) losartan 100 mg tablet 100 mg PO DAILY (DME) blood pressure test kit-large Kit See Rx Instructions .ROUTE DAILY Qty: 1 Rx Instructions: As directed petrolatum Ointment 1 appl topical DAILY acetaminophen 650 mg tablet extended release 650 mg PO BID tizanidine 2 mg tablet 2 mg PO TID Jardiance 10 mg tablet 10 mg PO QAM cholecalciferol (vitamin D3) [Vitamin D3] 50 mcg (2,000 unit) capsule 50 mcg PO QPM tramadol 50 mg tablet 50 mg PO Q6H PRN (Reason: pain) Trulicity 0.75 mg/0.5 mL pen injector 0.75 mg subcut QWEEK Rx Instructions: takes on Sunday betamethasone valerate 0.1 % cream 1 appl topical BID verapamil 240 mg capsule,ext rel. pellets 24 hr 240 mg PO DAILY cyclobenzaprine 10 mg tablet 10 mg PO BEDTIME levothyroxine 75 mcg tablet 75 mcg PO DAILY levothyroxine 200 mcg tablet 200 mcg PO QAM (DME) FreeStyle Lite Strips Strip See Rx Instructions .ROUTE DAILY Qty: 10 Rx Instructions: As directed (DME) lancets [TRUEplus Lancets] 33 gauge misc See Rx Instructions .ROUTE DAILY Qty: 100 Rx Instructions: As directed (DME) blood-glucose meter [FreeStyle [place] Lite] Kit See Rx Instructions .ROUTE DIRECTED Qty: 1 Rx Instructions: As directed escitalopram oxalate 20 mg tablet 20 mg PO DAILY hydralazine 100 mg tablet 100 mg PO BID fluticasone propionate 50 mcg/actuation spray,suspension 1 spray intranasal DAILY gabapentin 600 mg tablet 600 mg PO TID Asmanex HFA 100 mcg/actuation HFA aerosol inhaler 2 puff inhalation BID loratadine 10 mg tablet 10 mg PO DAILY diclofenac sodium 1 % gel topical BID ergocalciferol (vitamin D2) 1,250 mcg (50,000 unit) capsule 1,250 mcg PO QWEEK baclofen 10 mg tablet 10 mg PO BID lidocaine HCl-hydrocortison ac 3-0.5 % cream 1 appl NE BID Qty: 98 3RF pantoprazole 40 mg tablet,delayed release (DR/EC) 40 mg PO BID Qty: 180 6RF metoclopramide HCl 10 mg tablet See Rx Instructions PO QID Qty: 159 6RF Rx Instructions: 1 tab tidac and 2 tabs qhs orally 4 times a day; Creon 24,000-76,000 -120,000 unit capsule,delayed release(DR/EC) 2 cap PO QID Qty: 240 6RF famotidine 40 mg tablet 40 mg PO DAILY Qty: 30 6RF bisacodyl [Dulcolax (bisacodyl)] 5 mg tablet,delayed release (DR/EC) 10 mg PO BEDTIME 2 Days Qty: 4 0RF Viberzi 75 mg tablet 75 mg PO BID Qty: 60 5RF Rx Instructions: must administer with a meal/food albuterol sulfate 90 mcg/actuation HFA aerosol inhaler 2 puff inhalation Q4-6H PRN (Reason: shortness of breath or wheezing) Qty: 1 3RF
[2023-06-28 02:12] LABS: Appearance Urine Cloudy; Color Urine Dark Yellow; Glucose Urine UA Negative (Negative); Leukocyte Esterase Urine Negative (Negative); Nitrite Urine Negative (Negative); PH 5.5 (5.0-9.0); Specific Gravity - Urine >= 1.030 (1.005-1.025); Urine Blood Negative (Negative); Urine Ketones Negative (Negative); Urine Protein Trace mg/dL (Neg-Trace)
[2023-06-28 02:39] LABS: MANUAL DIFF FLAG NO
[2023-06-28 02:41] LABS: Basophils Percent Auto 0.3 % (0-2); Eosinophils Absolute Auto 0.1 X10*3/uL (0.0-0.4); Eosinophils Percent Auto 0.4 % (0-4); Hematocrit 40.9 % (37.0-47.0); Hemoglobin 13.9 g/dl (12.0-16.0); Imm Gran Abs Auto 0.06 X10*3/uL (0.00-0.03); Imm Gran Pct Auto 0.4 % (0.0-0.4); Lymphocytes Absolute Auto 2.5 X10*3/uL (1.2-4.9); Lymphocytes Percent Auto 16.2 % (20-40); Mean Corpuscular Hemoglobin 30.1 pg (27.0-33.0); Mean Corpuscular Volume 88.5 fL (80.0-98.0); Mean Platelet Volume 8.7 fL (9.4-12.3); Monocytes Percent Auto 6.7 % (2-11); Neutrophils Absolute Auto 11.5 x10*3/uL (2.0-8.3); Platelet Count 262 X10*3/uL (160-400); Red Blood Count 4.62 X10*6/uL (4.20-5.50); Red Cell Distribution Width 13.2 % (11.0-16.0); White Blood Count 15.2 X10*3/uL (4.8-10.8)
[2023-06-28 02:59] LABS: Alanine Aminotransferase 113 U/L (0-31); Albumin Level 3.5 g/dL (3.5-5.0); Alkaline Phosphatase 78 U/L (39-117); Anion Gap 13 (12-20); Aspartate Amino Transferase 223 U/L (5-31); Bilirubin Total 1.1 mg/dL (0.0-1.0); Blood Urea Nitrogen 15 mg/dL (9-16); Calcium 9.2 mg/dL (8.4-10.2); Carbon Dioxide 20 mmol/L (22-29); Chloride 106 mmol/L (96-108); Creatinine Clr Calc Pharmacy 124.6; Estimated Glomerular Filt Rate > 60; Glucose Random 155 mg/dL (60-115); Potassium 4.1 mmol/L (3.3-5.1); Sodium 135 mmol/L (135-145)
[2023-06-28 03:05] LABS: Lipase 389 U/L (8-78); Troponin-I High Sensitivity < 2.7 ng/L (<3.5-17.0)
[2023-06-28] MEDS: iohexoL 350 MG/ML 100 ML INFUS..BTL IV (03:40)
--- NOTE | 2023-06-28 04:55 | PC.NURSE ---
late entry- pt from home, reporting onset of chest pain radiating into the abdomen. pt reports hx of anxiety but reports she has not had this pain before from anxiety. pt denies radiation to the extremities, denies SOB and dizziness. pt reports intermittent nausea at this time. 20G placed in right AC. pt a&ox4.
[2023-06-28 06:04] LABS: Bilirubin Direct 0.6 mg/dL (0.0-0.5)
--- NOTE | 2023-06-28 06:05 | P.HPHOSP_ITS ---
History of Present Illness Date of Service: 06/28/23 Attending physician on admission: Khanh Adames Chief Complaint: Abdominal Shereen Cuellar is a 48 years old woman with past medical history significant for cholecystectomy, IBS, GERD morbid obesity, hypothyroidism, GERD, anxiety and type 2 diabetes mellitus presents to the emergency department complaining of epigastric pain that started last night after eating soup. She reports associated nausea but denied events of vomiting, diarrhea, fevers chills. She denied any acute urinary symptoms. Patient takes multiple medications but anything new and denied alcohol abuse. She did not report tobacco smoking or illicit drug use. In the ED, she was found to have stable vital signs. Blood work is remarkable for leukocytosis, 15.2. Hemoglobin platelets are normal. There are no significant electrolyte imbalances. Renal function is normal. LFTs and lipase are elevated. ED tx: None. Review of Systems 2 Review of Systems: All 12 systems were reviewed and normal except as noted in HPI. [facility] Medical History Diabetes Hirsutism Varicose veins with pain Restless leg syndrome Congenital pulmonary arteriovenous malformation Urinary retention Epicondylitis, lateral Interstitial cystitis Spinal stenosis of lumbar region Chronic pain syndrome Disc degeneration, lumbar Spondylosis, lumbar, with myelopathy Morbid obesity due to excess calories Arthritis Fibromyalgia Migraines Hypothyroid Restrictive lung disease Allergic rhinitis AISHWARYA on CPAP Family History Father Alcoholism Mother Leukemia Maternal Aunt Breast cancer Sister Depression Vertigo Family/Other Heart problem Diabetes Cancer Brother Atherosclerotic cardiovascular disease Cardiomegaly Surgical History Hx of spinal surgery Hx of cystoscopy Hx of colonoscopy History of esophagogastroduodenoscopy (EGD) Social History Household Members: Family Household Members Other:: niece Housing: Apartment Are you a primary healthcare recruiter to a significant other at home: No Do you presently have visiting nurse or other home services: Yes ([employer] 9 hours /week) Alcohol intake: never Comment: NONE Patient Tobacco Use Status: Never used Tobacco Second Hand Smoke Exposure: No Substance Use Type: Marijuana Current occupational status: disabled 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 Meds Allergies Allergy/AdvReac Type Severity Reaction Status Date / Time cefuroxime [From CEFTIN] Allergy Severe HIVES Verified 06/22/23 10:49 Active Medications: Current Medications Sodium Chloride (Ns) 1,000 mls @ 100 mls/hr IVCONT .Q10H [facility] Sodium Chloride (0.9 % Sodium Chloride Flush 3 Ml Syringe) 3 ml IVFLUSH QSHIFT [facility] Home Medications Medication Instructions Recorded Confirmed Last Taken Type hydrochlorothiazide 25 mg tablet 25 mg PO QAM 03/02/20 06/18/23 02/04/23 History montelukast 10 mg tablet 10 mg PO BEDTIME 03/02/20 06/18/23 02/04/23 History polyvinyl alcohol 1.4 % eye drops 1 drp ophthalmic (eye) QID PRN Dry 10/08/20 06/18/23 Unknown History Eyes zolpidem 10 mg tablet 10 mg PO BEDTIME PRN Insomnia 10/08/20 06/18/23 02/04/23 History nystatin 100,000 unit/gram topical 1 appl topical BID 12/30/20 06/18/23 Unknown History powder betamethasone valerate 0.1 % 1 appl topical BID 05/24/21 06/18/23 Unknown History topical cream blood pressure test kit-large #1 ea 08/02/21 03/14/23 Unknown History lanolin alcohols-mineral 1 appl topical BID PRN Rash 08/02/21 06/15/23 Unknown History oil-w.petrolatum-ceresin topical cream (Minerin Creme topical) losartan 100 mg tablet 100 mg PO DAILY 08/02/21 06/18/23 02/04/23 History mineral oil-hydrophil petrolat 1 appl topical DAILY 08/02/21 06/18/23 Unknown History topical ointment (petrolatum topical ointment) cyclobenzaprine 10 mg tablet 10 mg PO BEDTIME 03/07/22 06/18/23 02/04/23 History verapamil 240 mg 24 hr 240 mg PO DAILY 03/07/22 06/18/23 02/04/23 History capsule,extended release blood sugar diagnostic (FreeStyle #10 ea 04/19/22 03/14/23 Unknown History Lite Strips) blood-glucose meter (FreeStyle #1 ea 04/19/22 03/14/23 Unknown History [place] Lite kit) lancets 33 gauge (TRUEplus Lancets) #100 ea 04/19/22 03/14/23 Unknown History levothyroxine 200 mcg tablet 200 mcg PO QAM 04/19/22 06/18/23 02/04/23 History levothyroxine 75 mcg tablet 75 mcg PO DAILY 04/19/22 06/18/23 02/04/23 History acetaminophen 650 mg 650 mg PO BID 05/10/22 06/18/23 Unknown History tablet,extended release naloxone 4 mg/actuation nasal 1 spray intranasal Q2M PRN Opiate 05/10/22 06/18/23 Unknown History spray (Narcan) Reversal cholecalciferol (vitamin D3) 50 50 mcg PO QPM 06/29/22 06/18/23 02/04/23 History mcg (2,000 unit) capsule (Vitamin D3) empagliflozin 10 mg tablet 10 mg PO QAM 06/29/22 06/18/23 06/18/23 History (Jardiance) tizanidine 2 mg tablet 2 mg PO TID 06/29/22 06/15/23 02/04/23 History tramadol 50 mg tablet 50 mg PO Q6H PRN pain 06/29/22 06/18/23 02/03/23 History dulaglutide 0.75 mg/0.5 mL 0.75 mg subcut QWEEK 07/27/22 06/18/23 06/15/23 History subcutaneous pen injector (Trulicity) escitalopram oxalate 20 mg tablet 20 mg PO DAILY 07/27/22 06/18/23 02/04/23 History fluticasone propionate 50 1 spray intranasal DAILY 07/27/22 06/18/23 Unknown History mcg/actuation nasal spray,suspension hydralazine 100 mg tablet 100 mg PO BID 07/27/22 06/18/23 02/04/23 History clonazepam 0.5 mg tablet 0.5 mg PO TID PRN Anxiety 03/14/23 06/18/23 Unknown History baclofen 10 mg tablet 10 mg PO BID 06/19/23 Unknown History diclofenac sodium 1 % topical gel topical BID 06/19/23 Unknown History ergocalciferol (vitamin D2) 1,250 1,250 mcg PO QWEEK 06/19/23 Unknown History mcg (50,000 unit) capsule gabapentin 600 mg tablet 600 mg PO TID 06/19/23 Unknown History loratadine 10 mg tablet 10 mg PO DAILY 06/19/23 Unknown History mometasone 100 mcg/actuation HFA 2 puff inhalation BID 06/19/23 Unknown History aerosol inhaler (Asmanex HFA) Physical Exam 2 Vital Signs and Narrative: Vital Signs: Last Vital Signs Temp 98 F 06/28/23 05:50 Pulse 55 06/28/23 05:50 Resp 18 06/28/23 05:50 BP 148/65 H 06/28/23 05:50 Pulse Ox 95 06/28/23 05:50 O2 Del Method Room Air 06/28/23 05:50 BMI result Body Mass Index 52.0 Constitutional - Awake and Alert, No apparent distress. Pleasant. Obese. HEENT - normocephalic. Atraumatic. Normal sclerae. Dry oral mucosa Heart - RRR. No murmurs Lung - Normal lung expansion, Normal respiratory effort, No respiratory distress, CTA bilaterally Abdomen - nondistended, epigastric tenderness. +BS; No rebound or guarding - No CVA tenderness Extremities - no calf tenderness bilaterally, no swelling Musculoskeletal - Normal inspection, normal ROM Skin - Warm/Dry Neurological - Alert & oriented x3. No gross focal weakness grossly noted. Normal speech Psychological - Appropriate affect Results Labs 06/28/23 02:34 06/28/23 02:34 Labs: Laboratory Results - last 24 hr 06/28/23 06/28/23 02:06 02:34 MCV 88.5 MCH 30.1 MCHC 34.0 RDW 13.2 Plt Count 262 MPV 8.7 L Immature Gran % (Auto) 0.4 Neut % (Auto) 76.0 H Lymph % (Auto) 16.2 L Reeves % (Auto) 6.7 Eos % (Auto) 0.4 Baso % (Auto) 0.3 Lymph # (Auto) 2.5 Reeves # (Auto) 1.0 Eos # (Auto) 0.1 Baso # (Auto) 0.0 Abs Immat Gran (auto) 0.06 H Absolute Neuts (auto) 11.5 H Absolute Nucleated RBC 0.000 Nucleated RBC % (auto) 0.0 Anion Gap 13 Estim Creat Clear Calc 124.6 Estimated GFR > 60 Random Glucose 155 H Calcium 9.2 Total Bilirubin 1.1 H Direct Bilirubin 0.6 H AST 223 H ALT 113 H Alkaline Phosphatase 78 Troponin I High Sens < 2.7 Total Protein 7.0 Albumin 3.5 Lipase 389 H Urine Color Dark Yellow Urine Appearance Cloudy Urine pH 5.5 Ur Specific [place] >= 1.030 H Urine Protein Trace Urine Glucose (UA) Negative Urine Ketones Negative Urine Blood Negative Urine Nitrite Negative Ur Leukocyte Esterase Negative Imaging Radiologist's Impressions: Impressions Chest X-Ray 06/28/23 02:56 IMPRESSION: Low lung volumes. No acute cardiopulmonary process. Abdomen/Pelvis CT 06/28/23 03:40 IMPRESSION: 1. No acute abnormality. 2. There are two adjacent 2 mm calculi upper pole left kidney. There is no hydronephrosis. 3. There is diffuse thoracolumbar disc degenerative change. There is a prominent posterior osteophyte at L3-L4 with moderate spinal canal narrowing. Fleischner guidelines were followed. Assessment and Plan (1) Acute pancreatitis: Qualifiers: Pancreatitis type: unspecified pancreatitis type Acute pancreatitis complication: no infection or necrosis Qualified Code(s): K85.90 - Acute pancreatitis without necrosis or infection, unspecified Status: Acute (2) Asthma: Qualifiers: Asthma severity: mild Asthma persistence: intermittent Asthma complication type: uncomplicated Qualified Code(s): J45.20 - Mild intermittent asthma, uncomplicated Status: Acute (3) Diabetes mellitus: Qualifiers: Diabetes mellitus type: type 2 Diabetes mellitus group home insulin use: without long term care administrator use Diabetes mellitus complication status: without complication Qualified Code(s): E11.9 - Type 2 diabetes mellitus without complications Status: Acute (4) Elevated LFTs: Status: Acute (5) Hypertension: Qualifiers: Hypertension type: primary hypertension Qualified Code(s): I10 - Essential (primary) hypertension Status: Acute (6) Obstructive sleep apnea: Status: Acute (7) Hypothyroidism: Qualifiers: Hypothyroidism type: unspecified Qualified Code(s): E03.9 - Hypothyroidism, unspecified Status: Acute (8) GERD (gastroesophageal reflux disease): Qualifiers: Esophagitis presence: without esophagitis Qualified Code(s): K21.9 - Gastro-esophageal reflux disease without esophagitis Status: Acute (9) Morbid obesity due to excess calories: Status: Acute Plan Shereen Cuellar is a 48 years old woman admitted with: * Acute pancreatitis associated with elevated LFT (obstructive pattern). History of cholecystectomy. Secondary to medications (home medications list is quite extensive)? Obstruction? Admit to hospitalist service. Keep NPO. Start IV fluids. Pain control with morphine as needed. Check CRP and triglycerides. Continue to monitor LFTs Obtain MRCP. Gastroenterology consult. * GERD. Continue PPI * Hypothyroidism. Continue home medications. * Anxiety. Continue home medications. * Essential hypertension. Continue home medications * Type 2 diabetes mellitus. Blood glucose monitoring every 6h. Hold Jardiance while NPO. Insulin sliding scale. * Morbid obesity. BMI 52.0 kg/m2. Weight loss. * Obstructive sleep apnea. Nocturnal CPAP. * Urinary incontinence. Continue home medications. * Asthma. Albuterol as needed. * medications reconciliation by pharmacy is pending. DVT prophylaxis: SCDs Code status: Full Patient will need hospitalization for at least 2 midnights for acute pancreatitis treatment with IV fluids and pain control with IV opiate. Patient also will need evaluation with MRCP, blood workup monitoring of LFTs and subspecialty. Quality Stroke Does the patient have a stroke diagnosis?: No VTE Prior VTE?: No VTE Risk Level:: Medical - moderate - high VTE Device Contraindication: N/A - Device Ordered VTE Drug Contraindication: Treatment Not Indicated
[2023-06-28 06:15] LABS: C Reactive Protein 0.41 mg/dL (< or = 0.50)
[2023-06-28] MEDS: 0.9 % Sodium Chloride 1,000 ML 100 ML IVCONT ×2 (06:20→20:03)
[2023-06-28] MEDS: Morphine Sulfate 2 MG/ML CARTRIDGE IVPUSH ×2 (06:22→14:32)
[2023-06-28] MEDS: ondansetron HCL 4 MG/2 ML VIAL IVPUSH ×2 (06:22→14:32)
--- NOTE | 2023-06-28 06:25 | PC.NURSE ---
pt medicated per mar for 6/10 abdominal pain.
[2023-06-28 07:15] LABS: Glucose, Whole Blood 125 mg/dL (60-115)
[2023-06-28 07:36] LABS: MANUAL DIFF FLAG NO
--- NOTE | 2023-06-28 07:38 | P.CNGI_ITS ---
History of Present Illness Data of Consult Service Date: 06/28/23 Requesting physician: Khanh Adames Primary Care Provider: Daija Parry DO HPI Reason for consult: Abdominal pain, elevated LFTs, elevated lipase 48 YF with hx of cholecystectomy, IBS, GERD morbid obesity, hypothyroidism, GERD, anxiety and type 2 diabetes mellitus seen at [facility] on 06/28/23 with epigastric pain which started last night after eating some packaged soup. She reported nausea and denied vomiting, diarrhea, fevers chills or acute urinary symptoms. Last night she noted some chest tightness with 10/10 upper abdominal pain radiating to the back and spreading to the entire abdomen. Pt reports pain has improved and she has some abdominal discomfort at present. Patient gives a history of chronic constipation and has multiple small bowel movements daily. Patient takes multiple medications and denied ETOH abuse or any new medications. She denied tobacco smoking or illicit drug use. Pt reports having a Lap Jane in 2007 for gallstones in [place]. Abd pain she is having at present is similar to pain she experienced prior to Lap Jane. Pt has COPD and sleep apnea (uses a Bipap machine) In the ED, she was found to have stable vital signs. Blood work is remarkable for leukocytosis, 15.2. Hemoglobin platelets are normal. There are no significant electrolyte imbalances. Renal function is normal. LFTs and lipase were elevated. FU labs today showed improvement in Lipase from 389 to 178. LFTs are with increase in TB from 1.1 to 1.5 ED tx: IV fluids and IV pain medications. 06/08/[address] SCAN SHOWED: 1. No acute abnormality. 2. There are two adjacent 2 mm calculi upper pole left kidney. There is no hydronephrosis. 3. There is diffuse thoracolumbar disc degenerative change. There is a prominent posterior osteophyte at L3-L4 with moderate spinal canal narrowing. Review of Systems 2 Review of Systems: All 12 systems were reviewed and normal except as noted in HPI. [facility] Past Medical History Medical History Asthma Diabetes mellitus Obstructive sleep apnea Hypothyroidism Hypertension GERD (gastroesophageal reflux disease) Diabetes Hirsutism Varicose veins with pain Restless leg syndrome Congenital pulmonary arteriovenous malformation Urinary retention Epicondylitis, lateral Interstitial cystitis Spinal stenosis of lumbar region Chronic pain syndrome Disc degeneration, lumbar Spondylosis, lumbar, with myelopathy Morbid obesity due to excess calories Arthritis Fibromyalgia Migraines Hypothyroid Restrictive lung disease Allergic rhinitis AISHWARYA on CPAP Family History Family History Father Alcoholism Mother Leukemia Maternal Aunt Breast cancer Sister Depression Vertigo Family/Other Heart problem Diabetes Cancer Brother Atherosclerotic cardiovascular disease Cardiomegaly Surgical History Surgical History Hx of spinal surgery Hx of cystoscopy Hx of colonoscopy History of esophagogastroduodenoscopy (EGD) Social History Social History Household Members: Family Household Members Other:: niece Housing: Apartment Are you a primary home child care provider to a significant other at home: No Do you presently have visiting nurse or other home services: No Alcohol intake: never Comment: NONE Patient Tobacco Use Status: Never used Tobacco Second Hand Smoke Exposure: No Substance Use Type: Marijuana service: No Current occupational status: disabled 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 Glucose (Glucose Gel 15 Gm Gel..Gram.) 15 gm PO Q15M PRN; Protocol PRN Reason: per Hypoglycemia Standing Ord. Sodium Chloride (Ns) 1,000 mls @ 100 mls/hr IVCONT .Q10H DAVID Last Admin: 06/28/23 06:20 Dose: 100 mls/hr Insulin Human Lispro (Insulin Lispro 100 Unit/Ml 3 Ml Vial) 0 unit SUBCUT QIDACHS DAVID; Protocol Morphine Sulfate (Morphine Sulfate 2 Mg/Ml Cartridge) 2 mg IVPUSH Q4H PRN; Protocol PRN Reason: Pain, Severe (Pain Scale 7-10) Last Admin: 06/28/23 06:22 Dose: 2 mg Ondansetron HCl (Ondansetron Hcl 4 Mg/2 Ml Vial) 4 mg IVPUSH Q6H PRN PRN Reason: Nausea and Vomiting Last Admin: 06/28/23 06:22 Dose: 4 mg Pantoprazole Sodium (Pantoprazole Sodium 40 Mg/10 Ml Vial) 40 mg IVPUSH DAILY [facility] Sodium Chloride (0.9 % Sodium Chloride Flush 3 Ml Syringe) [facility] Medications ?Medication ?Instructions ?Recorded ?Confirmed ?Last Taken ?Type hydrochlorothiazide 25 mg tablet 25 mg PO QAM 03/02/20 08/01/23 02/04/23 History montelukast 10 mg tablet 10 mg PO BEDTIME 03/02/20 08/01/23 02/04/23 History polyvinyl alcohol 1.4 % eye drops 1 drp ophthalmic (eye) QID PRN Dry 10/08/20 08/01/23 Unknown History Eyes zolpidem 10 mg tablet 10 mg PO BEDTIME PRN Insomnia 10/08/20 08/01/23 02/04/23 History blood pressure test kit-large #1 ea 08/02/21 08/01/23 Unknown History lanolin alcohols-mineral 1 appl topical BID PRN Rash 08/02/21 08/01/23 Unknown History oil-w.petrolatum-ceresin topical cream (Minerin Creme topical) losartan 100 mg tablet 100 mg PO DAILY 08/02/21 08/01/23 02/04/23 History mineral oil-hydrophil petrolat 1 appl topical DAILY 08/02/21 08/01/23 Unknown History topical ointment (petrolatum topical ointment) cyclobenzaprine 10 mg tablet 10 mg PO BEDTIME 03/07/22 08/01/23 02/04/23 History verapamil 240 mg 24 hr 240 mg PO DAILY 03/07/22 08/01/23 02/04/23 History capsule,extended release blood sugar diagnostic (FreeStyle #10 ea 04/19/22 08/01/23 Unknown History Lite Strips) blood-glucose meter (FreeStyle #1 ea 04/19/22 08/01/23 Unknown History [place] Lite kit) lancets 33 gauge (TRUEplus Lancets) #100 ea 04/19/22 08/01/23 Unknown History levothyroxine 200 mcg tablet 200 mcg PO QAM 04/19/22 08/01/23 02/04/23 History levothyroxine 75 mcg tablet 75 mcg PO DAILY 04/19/22 08/01/23 02/04/23 History acetaminophen 650 mg 650 mg PO BID 05/10/22 08/01/23 Unknown History tablet,extended release naloxone 4 mg/actuation nasal 1 spray intranasal Q2M PRN Opiate 05/10/22 08/01/23 Unknown History spray (Narcan) Reversal cholecalciferol (vitamin D3) 50 50 mcg PO QPM 06/29/22 08/01/23 02/04/23 History mcg (2,000 unit) capsule (Vitamin D3) empagliflozin 10 mg tablet 10 mg PO QAM 06/29/22 08/01/23 06/18/23 History (Jardiance) tramadol 50 mg tablet 50 mg PO Q6H PRN pain 06/29/22 08/01/23 02/03/23 History dulaglutide 0.75 mg/0.5 mL 0.75 mg subcut QWEEK 07/27/22 08/01/23 06/15/23 History subcutaneous pen injector (Trulicity) hydralazine 100 mg tablet 100 mg PO BID 07/27/22 08/01/23 02/04/23 History clonazepam 0.5 mg tablet 0.5 mg PO TID PRN Anxiety 03/14/23 08/01/23 Unknown History diclofenac sodium 1 % topical gel 1 ea topical BID 06/19/23 08/01/23 Unknown History ergocalciferol (vitamin D2) 1,250 1,250 mcg PO QWEEK 06/19/23 08/01/23 Unknown History mcg (50,000 unit) capsule gabapentin 600 mg tablet 600 mg PO TID 06/19/23 08/01/23 Unknown History loratadine 10 mg tablet 10 mg PO DAILY 06/19/23 08/01/23 Unknown History escitalopram oxalate 20 mg tablet 20 mg PO BEDTIME 06/28/23 08/01/23 Unknown History metoclopramide HCl 10 mg tablet 10 mg PO TIDAC 06/28/23 08/01/23 Unknown History metoclopramide HCl 10 mg tablet 20 mg PO BEDTIME 06/28/23 08/01/23 Unknown History mometasone 100 mcg/actuation HFA 2 puff inhalation BID 06/28/23 08/01/23 Unknown History aerosol inhaler (Asmanex HFA) nystatin 100,000 unit/gram topical 1 appl topical BID-TID 06/28/23 08/01/23 Unknown History powder tizanidine 2 mg tablet 2 mg PO TID PRN muscle spasm 06/28/23 08/01/23 Unknown History Physical Exam 2 Vital Signs: Vital Signs: Last Vital Signs Temp 98.2 F 06/28/23 07:10 Pulse 52 06/28/23 07:10 Resp 16 06/28/23 07:10 BP 144/86 H 06/28/23 07:10 Pulse Ox 96 06/28/23 07:10 O2 Del Method Room Air 06/28/23 07:10 BMI result Body Mass Index 52.0 Const: General: no acute distress Nutritional Appearance: obese (Morbidly obese) Orientation/consciousness: patient oriented x3 HEENT: Head: Yes normal to inspection Ears: hearing grossly normal bilaterally Eyes: Sclerae: sclerae normal Pupils: Equal, round and reactive pupils present Neck: Neck: Yes normal visual inspection Chest: Chest palpation & inspection: normal inspection of the chest Resp: Effort & Inspection: normal respiratory effort Auscultation: clear to auscultation bilaterally Cardio: Palpation: normal PMI Rate: regular rate Rhythm: regular rhythm Heart sounds: S1 normal heart sound present, S2 normal heart sound present and no murmurs GI: Palpation (GI): Soft to palpation, Tenderness to palpation present (GI) (Mild epigastric tenderness without rebound) and No hepatosplenomegaly present Auscultation: normal bowel sounds Rectal Exam - Female: deferred Skin: General skin exam: no rashes or lesions noted Neuro: General: patient oriented x3, gait normal and moves all extremities Cranial nerves: Yes Equal, round and reactive pupils present Psych: Appearance: grossly normal Mental Status: mental status grossly normal Results Labs 06/28/23 07:30 06/29/23 06:16 Labs: Short CBC 06/28/23 Range/Units 02:34 WBC 15.2 H (4.8-10.8) X10*3/uL Hgb 13.9 (12.0-16.0) g/dl Hct 40.9 (37.0-47.0) % Plt Count 262 (160-400) X10*3/uL BMP 06/28/23 02:34 Sodium 135 Potassium 4.1 Chloride 106 Carbon Dioxide 20 L BUN 15 Creatinine 0.67 Calcium 9.2 Liver Function 06/28/23 Range/Units 02:34 Total Bilirubin 1.1 H (0.0-1.0) mg/dL Direct Bilirubin 0.6 H (0.0-0.5) mg/dL AST 223 H (5-31) U/L ALT 113 H (0-31) U/L Alkaline Phosphatase 78 (39-117) U/L Albumin 3.5 (3.5-5.0) g/dL Urine 06/28/23 Range/Units 02:06 Urine Color Dark Yellow Urine Appearance Cloudy Urine pH 5.5 (5.0-9.0) Ur Specific Velma >= 1.030 H (1.005-1.025) Urine Protein Trace (Neg-Trace) mg/dL Urine Glucose (UA) Negative (Negative) mg/dL Assessment and Plan (1) Elevated LFTs: Status: Resolved (2) Acute pancreatitis: Qualifiers: Acute pancreatitis complication: no infection or necrosis Pancreatitis type: unspecified pancreatitis type Qualified Code(s): K85.90 - Acute pancreatitis without necrosis or infection, unspecified Status: Resolved Plan 48 YF with hx of cholecystectomy, IBS, GERD morbid obesity, hypothyroidism, GERD, anxiety and type 2 diabetes mellitus seen at [facility] on 06/28/23 with epigastric pain which started last night after eating some packaged soup. She reported nausea and denied vomiting, diarrhea, fevers chills or acute urinary symptoms. . Patient takes multiple medications and denied ETOH abuse or any new medications. Pt reports having a Lap Jane in 2007 for gallstones in [place]. Blood work is remarkable for leukocytosis, 15.2. Hemoglobin platelets are normal. There are no significant electrolyte imbalances. Renal function is normal. LFTs and lipase were elevated. FU labs today showed improvement in Lipase from 389 to 178 and LFTs are worse Pt symptoms are suggestive of acute biliary pancreatitis likely due to CBD stones/sludge. Need to rule out viral hepatitis RECOMMENDATIONS: 1. Agree with IV fluids, pain medications and antiemetics 2. Follow LFTs and lipase daily 3. Pt may need an ERCP if MRCP shows CBD stones/sludge 4. Hepatitis serologies if MRCP is negative - added to am labs 5. Advise holding Viberzi since it can be associated with drug induced pancreatitis (its use is contraindicated in patients without a GB) ADDENDUM: MRCP SHOWED: 1. Pancreas divisum. No peripancreatic inflammatory fat stranding or pancreatic duct dilatation. 2. Common bile duct measures 9 mm which is within expected limits for the postcholecystectomy state, with no intraluminal filling defect to suggest choledocholithiasis. 3. Mild hepatic steatosis. 4. Trace bilateral pleural effusions, new from prior. If pt has another episode of pancreatitis despite discontinuing Viberzi, she can be referred to [facility] or [facility] for evaluation for ERCP with minor papilla therapy. She has been on Eluxadoline (Viberzi) intermittently for the past year which is associated with a risk of pancreatitis and sphincter of Oddi spasm - Most cases of pancreatitis related to Viberzi were within a week of starting treatment From UTD: Pancreatitis: Eluxadoline (Viberzi) may cause pancreatitis, with or without sphincter of Oddi spasm, including serious cases (some fatal) requiring hospitalization. Primarily occurs in patients without a gallbladder (use is contraindicated). Most reported serious pancreatitis cases occurred within a week of starting treatment; some developed after 1 or 2 doses. Avoid chronic or acute excessive alcohol use during therapy. Monitor for signs and symptoms of pancreatitis; discontinue use if new or worsening abdominal pain that may radiate to the back or shoulder (with or without nausea/vomiting) develops. ? Sphincter of Oddi spasm: May cause sphincter of Oddi spasm resulting in pancreatitis or elevated hepatic enzymes; most reported serious cases occurred during the first week of treatment, while some developed symptoms after 1 or 2 doses. Discontinue use if patients experience symptoms of sphincter of Oddi spasm such as acute worsening of epigastric- or biliary-type abdominal pain (eg, right upper quadrant pain) that may radiate to the back or shoulder with or without nausea/vomiting, associated with elevations of pancreatic enzymes or hepatic transaminases. Permanently discontinue use in patients who develop biliary duct obstruction or sphincter of Oddi spasm. PANCREAS DIVISUM: Patients with minimal/infrequent symptoms???In patients with pancreas divisum and mild or infrequent bouts of pain, we suggest conservative management rather than treatment of the minor papilla narrowing associated with pancreas divisum. Conservative management includes a low-fat diet, analgesics, anticholinergics, and if necessary, pancreatic enzyme supplements. The management of acute and chronic pancreatitis is discussed in detail, separately. Patients with recurrent/severe symptoms???Patients with pancreas divisum and recurrent pancreatobiliary-type pain, acute pancreatitis, or chronic pancreatitis associated with clinically significant disability warrant pancreatic imaging (eg, MRCP) and an evaluation of the underlying etiology. However, we reserve minor papilla therapy for patients with two or more bouts of acute pancreatitis regardless of severity and consider therapy in patients with one bout of severe acute pancreatitis if no other etiology is found. Evidence of dorsal duct dilation on pancreatic imaging may suggest a stenotic minor papilla orifice, but is not a requirement for proceeding with minor papilla therapy Procedures Date of Service Date of Service: 08/19/23
[2023-06-28 07:48] LABS: Basophils Percent Auto 0.2 % (0-2); Eosinophils Percent Auto 0.3 % (0-4); Hematocrit 43.4 % (37.0-47.0); Hemoglobin 14.6 g/dl (12.0-16.0); Imm Gran Abs Auto 0.04 X10*3/uL (0.00-0.03); Imm Gran Pct Auto 0.4 % (0.0-0.4); Lymphocytes Absolute Auto 1.7 X10*3/uL (1.2-4.9); Lymphocytes Percent Auto 15.5 % (20-40); Mean Corpuscular HGB Conc 33.6 g/dl (31.0-35.0); Mean Corpuscular Volume 89.1 fL (80.0-98.0); Mean Platelet Volume 8.8 fL (9.4-12.3); Monocytes Absolute Auto 0.6 X10*3/uL (0.1-1.2); Monocytes Percent Auto 5.4 % (2-11); Neutrophils Absolute Auto 8.8 x10*3/uL (2.0-8.3); Neutrophils Percent Auto 78.2 % (45-73); Platelet Count 305 X10*3/uL (160-400); Red Blood Count 4.87 X10*6/uL (4.20-5.50); Red Cell Distribution Width 13.2 % (11.0-16.0); Triglycerides 55 mg/dL (<150); White Blood Count 11.2 X10*3/uL (4.8-10.8)
[2023-06-28 07:55] LABS: Blood Urea Nitrogen 13 mg/dL (9-16)
[2023-06-28 07:56] LABS: Alanine Aminotransferase 395 U/L (0-31); Albumin Level 3.7 g/dL (3.5-5.0); Alkaline Phosphatase 94 U/L (39-117); Aspartate Amino Transferase 539 U/L (5-31); Bilirubin Total 1.5 mg/dL (0.0-1.0); Calcium 9.4 mg/dL (8.4-10.2); Creatinine Clr Calc Pharmacy 124.6; Estimated Glomerular Filt Rate > 60; Glucose Random 129 mg/dL (60-115); Total Protein 7.1 g/dL (6.5-8.0)
[2023-06-28 08:12] LABS: Anion Gap 12 (12-20); Carbon Dioxide 27 mmol/L (22-29); Chloride 104 mmol/L (96-108); Sodium 139 mmol/L (135-145)
--- NOTE | 2023-06-28 08:51 | PHA.MEDREC ---
Pharmacy Consult ? Medication Reconciliation Pharmacy has completed the medication reconciliation. Patient had a printed out list with her.
[2023-06-28] MEDS: Pantoprazole Sodium 40 MG/10 ML VIAL IVPUSH (08:53)
--- NOTE | 2023-06-28 10:22 | PM.EVENT ---
Event Note Date of Service: 06/28/23 Event Note: Seen and evaluated this morning pain under fair control reporting mild nausea MRCP pending GI consult pending continue IVF advance diet as toelrated Time Spent With Patient Time: Total time managing care of this patient today ____ minutes.
[2023-06-28] MEDS: hydroCHLOROthiazide 25 MG TABLET PO (10:49)
[2023-06-28] MEDS: Levothyroxine Sodium 75 MCG TABLET PO (10:49)
[2023-06-28] MEDS: Nystatin Powder 15 GM BOTTLE 1 APPL TOPICAL (10:49)
[2023-06-28] MEDS: Empagliflozin 10 MG TABLET PO (10:51)
[2023-06-28] MEDS: VerapamiL HCL SR 240 MG TABLET.ER PO (10:51)
[2023-06-28] MEDS: Levothyroxine Sodium 200 MCG TABLET PO (11:25)
[2023-06-28 11:34] LABS: Lipase 178 U/L (8-78)
[2023-06-28 11:37] LABS: Glucose, Whole Blood 104 mg/dL (60-115)
[2023-06-28] MEDS: Metoclopramide HCl 10 MG TABLET PO ×2 (13:43→18:40)
[2023-06-28] MEDS: Lipase/Prot/Amylase 24/76/120K 1 CAP CAPSULE.DR 2 CAP PO ×3 (13:43→20:03)
[2023-06-28] MEDS: Gabapentin 600 MG TABLET PO ×2 (14:34→20:02)
[2023-06-28] MEDS: Cholecalciferol (Vitamin D3) 25 MCG TABLET 50 MCG PO (19:59)
[2023-06-28] MEDS: hydrALAZINE HCl 50 MG TABLET 100 MG PO (19:59)
[2023-06-28] MEDS: Omeprazole 20 MG CAPSULE.DR PO (20:00)
[2023-06-28] MEDS: clonazePAM 0.5 MG TABLET PO (20:01)
[2023-06-28] MEDS: Metoclopramide HCl 10 MG TABLET 20 MG PO (20:01)
[2023-06-28] MEDS: Escitalopram Oxalate 20 MG TABLET PO (20:02)
[2023-06-28] MEDS: Cyclobenzaprine HCl 10 MG TABLET PO (20:02)
[2023-06-28] MEDS: Montelukast Sodium 10 MG TABLET PO (20:02)
[2023-06-28 20:08] LABS: Glucose, Whole Blood 91 mg/dL (60-115)
[2023-06-29 03:38] VITALS: BP 106/58; PULSE 64; RESP 18; TEMP 36.1; O2SAT 94
[2023-06-29 04:17] VITALS: RESP 18
[2023-06-29] MEDS: 0.9 % Sodium Chloride 1,000 ML 100 ML IVCONT (05:32)
[2023-06-29 07:39] LABS: Glucose, Whole Blood 110 mg/dL (60-115)
[2023-06-29 07:40] VITALS: BP 120/58; PULSE 63; RESP 17; TEMP 36.3; O2SAT 100
[2023-06-29 07:41] LABS: Alanine Aminotransferase 294 U/L (0-31); Albumin Level 3.4 g/dL (3.5-5.0); Alkaline Phosphatase 91 U/L (39-117); Anion Gap 13 (12-20); Aspartate Amino Transferase 117 U/L (5-31); Bilirubin Direct 0.3 mg/dL (0.0-0.5); Bilirubin Total 0.7 mg/dL (0.0-1.0); Blood Urea Nitrogen 12 mg/dL (9-16); Calcium 9.3 mg/dL (8.4-10.2); Carbon Dioxide 26 mmol/L (22-29); Chloride 101 mmol/L (96-108); Creatinine Clr Calc Pharmacy 115.1; Estimated Glomerular Filt Rate > 60; Glucose Random 95 mg/dL (60-115); Sodium 136 mmol/L (135-145); Total Protein 6.6 g/dL (6.5-8.0)
[2023-06-29] MEDS: hydrALAZINE HCl 50 MG TABLET 100 MG PO (07:58)
[2023-06-29] MEDS: Gabapentin 600 MG TABLET PO ×2 (07:58→14:06)
[2023-06-29] MEDS: Loperamide HCl 2 MG CAPSULE 4 MG PO (07:58)
[2023-06-29] MEDS: Metoclopramide HCl 10 MG TABLET PO ×2 (07:58→12:02)
[2023-06-29] MEDS: Loratadine 10 MG TABLET PO (07:58)
[2023-06-29] MEDS: Levothyroxine Sodium 200 MCG TABLET PO (07:59)
[2023-06-29] MEDS: Lipase/Prot/Amylase 24/76/120K 1 CAP CAPSULE.DR 2 CAP PO ×2 (07:59→12:02)
[2023-06-29] MEDS: VerapamiL HCL SR 240 MG TABLET.ER PO (07:59)
[2023-06-29] MEDS: Fluticasone/Vilanterol 100/25 BLST.W.DEV 1 PUFF INHALE (07:59)
[2023-06-29] MEDS: Losartan Potassium 50 MG TABLET 100 MG PO (07:59)
[2023-06-29] MEDS: hydroCHLOROthiazide 25 MG TABLET PO (07:59)
[2023-06-29] MEDS: Empagliflozin 10 MG TABLET PO (07:59)
[2023-06-29] MEDS: Omeprazole 20 MG CAPSULE.DR PO (07:59)
[2023-06-29] MEDS: Tolterodine Tartrate LA 4 MG CAP.ER.24H PO (07:59)
[2023-06-29] MEDS: Famotidine 20 MG TABLET 40 MG PO (07:59)
[2023-06-29] MEDS: Levothyroxine Sodium 75 MCG TABLET PO (07:59)
[2023-06-29 08:03] VITALS: PULSE 69; RESP 18; O2SAT 98
[2023-06-29] MEDS: Pantoprazole Sodium 40 MG/10 ML VIAL IVPUSH (08:03)
[2023-06-29 09:13] LABS: Hepatitis A Antibody IgM 0.18 Index (0-0.79); ~Hepatitis A Antibody IgM Nonreactive (Nonreactive)
[2023-06-29 09:16] LABS: HBS Num1 1.98 mIU/mL (0-7.99); HBc Num1 0.17 S/CO (0.00-0.79); HBsAGNum1 0.33 S/CO (0.00-0.99); Hepatitis B Core Antibody Nonreactive (Nonreactive); Hepatitis B Surface Antigen Negative (Negative); ~HepC Num1 0.21 S/CO (0.00-0.79); ~Hepatitis B Surface Antibody NONREACTIVE (Nonreactive); ~Hepatitis C Antibody Nonreactive (Nonreactive)
--- NOTE | 2023-06-29 10:24 | MHC.CM.PN ---
pt lives with niee has wax specialist 9 hrs a week thru [facility] may need a ride home when ddcd
--- NOTE | 2023-06-29 10:34 | MHC.CM.PN ---
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
[2023-06-29 11:25] LABS: Glucose, Whole Blood 106 mg/dL (60-115)
--- NOTE | 2023-06-29 13:19 | PM.DS ---
DS: Providers Provider Date of Service: 06/29/23 Date of admission: 06/28/23 05:44 Primary care physician: Daija Parry DO Consults: 06/28/23 06:03 Consult to Gastroenterology Routine Consulting Provider: Layla Chester Reason for consultation: Abdominal pain, pancreatitis, elevated LFT Has provider been notified: No DS: Diagnosis Discharge Diagnosis (1) Elevated LFTs: Status: Acute (2) Acute pancreatitis: Status: Acute DS: Summary Hospital Course Hospital Course: Admission note HPI Shereen Cuellar is a 48 years old woman with past medical history significant for cholecystectomy, IBS, GERD morbid obesity, hypothyroidism, GERD, anxiety and type 2 diabetes mellitus presents to the emergency department complaining of epigastric pain that started last night after eating soup. She reports associated nausea but denied events of vomiting, diarrhea, fevers chills. She denied any acute urinary symptoms. Patient takes multiple medications but anything new and denied alcohol abuse. She did not report tobacco smoking or illicit drug use. In the ED, she was found to have stable vital signs. Blood work is remarkable for leukocytosis, 15.2. Hemoglobin platelets are normal. There are no significant electrolyte imbalances. Renal function is normal. LFTs and lipase are elevated. Hospital course The patient was admitted for treatment of acute pancreatitis and transaminitis per elevated lab results. a CT scan and MRCP were done showing no evidence of obstruction. even the pancrease did not look too inflammed. She was treated with IV fluids and pain medication as she was seen by dr Chester from GI who recommended to discontinue Viberzi as the picture is more suggestive of sphencter of Oddi spasm. Liver enzymes trended down as pain subsided and patient was able to tolerate diet. To be discharged home on low fat,cholestrol diet with advice to lose weight and increase fluids intake. Low fat, low cholestrol diet We advise you to lose weight Discontinue Viberzi Follow with dr Chester as outpatient as needed Time Attestation Discharge Coordination Time (in mins): 35 Quality: Safe Use of Opioids Does Pt have an Active Cancer Diagnosis on the Problem List?: No Quality: Stroke Does the patient have a stroke diagnosis?: No Physical Exam Vital Signs: Vital Signs: Last Vital Signs Temp 97.3 F 06/29/23 07:40 Pulse 69 06/29/23 08:03 Resp 18 06/29/23 08:03 BP 120/58 L 06/29/23 07:40 Pulse Ox 100 06/29/23 07:40 O2 Del Method Room Air 06/29/23 07:40 BMI result Body Mass Index 52.5 Const: Other: Constitutional : Awake, interactive, obese, not in distress Neck : Normal inspection, Supple Cardiovascular : RRR, no JVP, no lower extremity edema Respiratory : good bilateral air entry, no crackles, wheezes or rhonchi Gastrointestinal: soft, lax, Normal bowel sounds, Non tender Skin : Warm, Dry Neurological : Alert & oriented x3, No focal deficit DS: Data Data Completed and Pending Labs on day of discharge: Laboratory Results - last 24 hr 06/28/23 06/29/23 06/29/23 19:46 06:16 07:15 Sodium 136 Potassium 4.0 Chloride 101 Carbon Dioxide 26 Anion Gap 13 BUN 12 Creatinine 0.73 Estim Creat Clear Calc 115.1 Estimated GFR > 60 POC Glucose 91 110 Random Glucose 95 Calcium 9.3 Total Bilirubin 0.7 Direct Bilirubin 0.3 AST 117 H ALT 294 H Alkaline Phosphatase 91 Total Protein 6.6 Albumin 3.4 L Hepatitis A IgM Ab Nonreactive Hep Bs Antigen Negative Hep Bs Antibody NONREACTIVE Hep B Core Total Ab Nonreactive Hepatitis C Ab (EIA) Nonreactive 06/29/23 11:06 Sodium Potassium Chloride Carbon Dioxide Anion Gap BUN Creatinine Estim Creat Clear Calc Estimated GFR POC Glucose 106 Random Glucose Calcium Total Bilirubin Direct Bilirubin AST ALT Alkaline Phosphatase Total Protein Albumin Hepatitis A IgM Ab Hep Bs Antigen Hep Bs Antibody Hep B Core Total Ab Hepatitis C Ab (EIA) Imaging Chest x-ray: Radiologist's impression: ITS Impressions Chest X-Ray 06/28/23 02:56 IMPRESSION: Low lung volumes. No acute cardiopulmonary process. Abdomen/Pelvis CT 06/28/23 03:40 IMPRESSION: 1. No acute abnormality. 2. There are two adjacent 2 mm calculi upper pole left kidney. There is no hydronephrosis. 3. There is diffuse thoracolumbar disc degenerative change. There is a prominent posterior osteophyte at L3-L4 with moderate spinal canal narrowing. Fleischner guidelines were followed. Cholangiopancreatography MRI 06/28/23 08:00 IMPRESSION: 1. Pancreas divisum. No peripancreatic inflammatory fat stranding or pancreatic duct dilatation. 2. Common bile duct measures 9 mm which is within expected limits for the postcholecystectomy state, with no intraluminal filling defect to suggest choledocholithiasis. 3. Mild hepatic steatosis. 4. Trace bilateral pleural effusions, new from prior. Discharge Plan Discharge Anticipated Discharge Date/Time: 06/29/23 12:44 Patient Disposition: Home, Self-Care Discharge Diagnosis: Elevated liver enzymes acute pancreatitis Referrals: Daija Parry DO [Primary Care Provider] - 1 Week Discharge Medications: Continued Elmiron 100 mg capsule 200 mg PO BID 90 Days Qty: 360 1RF loperamide 2 mg capsule 4 mg PO BID Qty: 120 6RF solifenacin [Vesicare] 5 mg tablet 10 mg PO DAILY 90 Days Qty: 180 1RF ondansetron HCl 4 mg tablet 4 mg PO TID PRN (Reason: for nausea/vomiting) Qty: 90 3RF nystatin 100,000 unit/gram powder 1 appl topical BID-TID metoclopramide HCl 10 mg Tablet 20 mg PO BEDTIME metoclopramide HCl 10 mg Tablet 10 mg PO TIDAC escitalopram oxalate 20 mg tablet 20 mg PO BEDTIME Asmanex HFA 100 mcg/actuation HFA aerosol inhaler 2 puff inhalation BID tizanidine 2 mg tablet 2 mg PO TID PRN (Reason: muscle spasm) zolpidem 10 mg tablet 10 mg PO BEDTIME PRN (Reason: Insomnia) polyvinyl alcohol 1.4 % drops 1 drp ophthalmic (eye) QID PRN (Reason: Dry Eyes) clonazepam 0.5 mg tablet 0.5 mg PO TID PRN (Reason: Anxiety) Narcan 4 mg/actuation spray,non-aerosol 1 spray intranasal Q2M PRN (Reason: Opiate Reversal) hydrochlorothiazide 25 mg tablet 25 mg PO QAM montelukast 10 mg tablet 10 mg PO BEDTIME Minerin Creme Cream 1 appl topical BID PRN (Reason: Rash) losartan 100 mg tablet 100 mg PO DAILY (DME) blood pressure test kit-large Kit See Rx Instructions .ROUTE DAILY Qty: 1 Rx Instructions: As directed petrolatum Ointment 1 appl topical DAILY acetaminophen 650 mg tablet extended release 650 mg PO BID Jardiance 10 mg tablet 10 mg PO QAM cholecalciferol (vitamin D3) [Vitamin D3] 50 mcg (2,000 unit) capsule 50 mcg PO QPM tramadol 50 mg tablet 50 mg PO Q6H PRN (Reason: pain) Trulicity 0.75 mg/0.5 mL pen injector 0.75 mg subcut QWEEK Rx Instructions: takes on Sunday verapamil 240 mg capsule,ext rel. pellets 24 hr 240 mg PO DAILY cyclobenzaprine 10 mg tablet 10 mg PO BEDTIME levothyroxine 75 mcg tablet 75 mcg PO DAILY levothyroxine 200 mcg tablet 200 mcg PO QAM (DME) FreeStyle Lite Strips Strip See Rx Instructions .ROUTE DAILY Qty: 10 Rx Instructions: As directed (DME) lancets [TRUEplus Lancets] 33 gauge misc See Rx Instructions .ROUTE DAILY Qty: 100 Rx Instructions: As directed (DME) blood-glucose meter [FreeStyle [place] Lite] Kit See Rx Instructions .ROUTE DIRECTED Qty: 1 Rx Instructions: As directed hydralazine 100 mg tablet 100 mg PO BID gabapentin 600 mg tablet 600 mg PO TID loratadine 10 mg tablet 10 mg PO DAILY diclofenac sodium 1 % gel 1 ea topical BID ergocalciferol (vitamin D2) 1,250 mcg (50,000 unit) capsule 1,250 mcg PO QWEEK pantoprazole 40 mg tablet,delayed release (DR/EC) 40 mg PO BID Qty: 180 6RF Creon 24,000-76,000 -120,000 unit capsule,delayed release(DR/EC) 2 cap PO QID Qty: 240 6RF famotidine 40 mg tablet 40 mg PO DAILY Qty: 30 6RF albuterol sulfate 90 mcg/actuation HFA aerosol inhaler 2 puff inhalation Q4-6H PRN (Reason: shortness of breath or wheezing) Qty: 1 3RF Discharge Orders: Discharge Order (Routine); Ordered 06/29/23 Ordered By: Ruth Ann Powell Diet: Low fat, low cholesterol Activity on Discharge: As tolerated Stand Alone Forms: Patient Portal Discharge page Care Plan Goals: Read below Health Concerns: Read below Plan of Treatment: Read below Assessment: You were admitted to the hospital for evaluation of abdominal pain. Found to have elevated liver and pancrease enzymes. Images including CT and MRI did not show any obstruction. You were evaluated by Video Game Technician dr Chester who thinks it could be a side effect of Viberzi and recommending to stop it as it can cause pancreatitis and spincter of Oddi spasm. Liver enzymes trended down during your hospital stay as you were able to tolerate diet. Low fat, low cholestrol diet We advise you to lose weight Follow with dr Chester as outpatient as needed
[2023-07-02 11:22] LABS: CRP High Sensitivity >10.0 mg/L
== END 2023-06-29 15:01 | disposition home or self-care (01) | DRG 444 ==
LOC: HO.ED 06:01 → HO.EDOVER 06:28 → HO.S3 16:19
PROVIDERS: Internal Medicine Gastroenterology; Physician Assistant; Admitting Provider Internal Medicine; Emergency Provider Emergency Medicine Emergency Medical Services; PCP Family Medicine; Visit Provider Student in an Organized Health Care Education/Training Program
DX: K83.4 Spasm of sphincter of Oddi (principal); K85.90 Acute pancreatitis without necrosis or infection, unspecified; Z68.43 Body mass index [BMI] 50.0-59.9, adult; E03.9 Hypothyroidism, unspecified; K21.9 Gastro-esophageal reflux disease without esophagitis; E66.01 Morbid (severe) obesity due to excess calories; G47.33 Obstructive sleep apnea (adult) (pediatric); J45.20 Mild intermittent asthma, uncomplicated; K76.0 Fatty (change of) liver, not elsewhere classified; E11.9 Type 2 diabetes mellitus without complications; I10 Essential (primary) hypertension; F41.9 Anxiety disorder, unspecified; R32 Unspecified urinary incontinence; Z79.890 Hormone replacement therapy; Z79.899 Other long term (current) drug therapy
CPT/HCPCS: 36415; 71045; 74177; 74181; 80048; 80053; 80076; 81003; 82248; 82947; 83690; 84478; 84484; 85025; 86140; 86141; 86704; 86706; 86709; 86803; 87340; 93005; 94640; 94660; 99285; C9113; J2270; J2405; Q9967

== ENCOUNTER → 2023-06-28 00:40 | Outpatient (BNV) | payer OTHER, SELFPAY | PROVIDERS: Admitting Provider Internal Medicine; Emergency Provider Emergency Medicine Emergency Medical Services; PCP Family Medicine; Visit Provider Internal Medicine | DX: R07.89 Other chest pain (principal) | CPT/HCPCS: 93010 ==

== ENCOUNTER → 2023-06-28 05:44 | Outpatient (BNV) | payer OTHER, SELFPAY | PROVIDERS: Admitting Provider Internal Medicine; Emergency Provider Emergency Medicine Emergency Medical Services; PCP Family Medicine; Visit Provider Internal Medicine | DX: R79.89 Other specified abnormal findings of blood chemistry (principal); K85.90 Acute pancreatitis without necrosis or infection, unspecified | CPT/HCPCS: 99223; 99239; 99499 ==

== ENCOUNTER → 2023-06-28 05:44 | Outpatient (BNV) | payer OTHER, SELFPAY | PROVIDERS: Admitting Provider Internal Medicine; Emergency Provider Emergency Medicine Emergency Medical Services; PCP Family Medicine; Visit Provider Internal Medicine Gastroenterology | DX: R79.89 Other specified abnormal findings of blood chemistry (principal); K85.90 Acute pancreatitis without necrosis or infection, unspecified | CPT/HCPCS: 99222 ==

== ENCOUNTER 2023-07-12 13:32 | Outpatient (REF) | payer OTHER, SELFPAY ==
[2023-07-12 16:47] LABS: Creatinine Urine 110.18 mg/dL; Microalbum/Creatinine Ratio Ur 20.8 ug/mg cr (<30)
== END 2023-07-12 13:33 | disposition home or self-care (01) ==
LOC: HO.HHCL 13:32
PROVIDERS: Visit Provider Family Medicine
DX: R10.13 Epigastric pain (principal)
CPT/HCPCS: 82043; 82570

== ENCOUNTER 2023-07-30 13:41 | Outpatient (REF) | payer OTHER, SELFPAY ==
[2023-07-30 15:52] LABS: CT PCR NOT DETECTED (Not Detect.); NG PCR NOT DETECTED (Not Detect.)
== END 2023-07-30 13:42 | disposition home or self-care (01) ==
LOC: HO.LAB 13:41
PROVIDERS: PCP Family Medicine; Visit Provider Family Medicine
DX: J45.20 Mild intermittent asthma, uncomplicated (principal); E66.01 Morbid (severe) obesity due to excess calories; G47.33 Obstructive sleep apnea (adult) (pediatric); J98.4 Other disorders of lung; J30.9 Allergic rhinitis, unspecified; R10.13 Epigastric pain; R40.0 Somnolence; R51.9 Headache, unspecified; Z99.89 Dependence on other enabling machines and devices; Z20.2 Contact with and (suspected) exposure to infections with a predominantly sexual mode of transmission; Z79.899 Other long term (current) drug therapy
CPT/HCPCS: 0353U; 99212

== ENCOUNTER 2023-07-30 14:07 | Outpatient (AMB) | payer OTHER, SELFPAY ==
--- NOTE | 2023-07-30 13:27 | MHC.OFFVIS ---
Vital Signs 07/30/23 14:13 Height 5 ft 1 in Weight 275 lb 9.245 oz BMI 52.1 BP 120/70 Blood Pressure Location Rt brachial Position Sitting Pulse 71 Pulse Source Pulse Oximeter Pulse Oximetry (%) 97 Oxygen Delivery Method Room Air Intake Visit Reasons: Asthma Allergies cefuroxime [From CEFTIN] Allergy (Severe, Verified 07/30/23 14:17) HIVES HPI HPI Asthma: Details: Shereen is a pleasant 48 year old female, never smoker, with underlying asthma, morbid obesity and AISHWARYA on CPAP therapy. She has been using singulair, and Asmanex 100 mcg 1 inhalation QD with suboptimal response. At the last visit, she was advised to increase asmanex to BID and she reports good control of respiratory symptoms. She reports improvement in dyspnea and denies wheezing, cough or chest tightness. She stated today that although she is complaint with BiPAP therapy, no one has followed up with compliance. She does feel as though the pressures are not sufficient, as she still is symptomatic with morning headaches and daytime fatigue. She denies any recent sleep studies. She again notes that her pressure settings 20/13 and receives her supplies through [facility]. [facility] Medical History Diabetes Hirsutism Varicose veins with pain Restless leg syndrome Congenital pulmonary arteriovenous malformation Urinary retention Epicondylitis, lateral Interstitial cystitis Spinal stenosis of lumbar region Chronic pain syndrome Disc degeneration, lumbar Spondylosis, lumbar, with myelopathy Morbid obesity due to excess calories Arthritis Fibromyalgia Migraines Hypothyroid Restrictive lung disease Allergic rhinitis AISHWARYA on CPAP Surgical History Hx of spinal surgery Hx of cystoscopy Hx of colonoscopy History of esophagogastroduodenoscopy (EGD) Family History Father Alcoholism Mother Leukemia Maternal Aunt Breast cancer Sister Depression Vertigo Family/Other Heart problem Diabetes Cancer Brother Atherosclerotic cardiovascular disease Cardiomegaly Social History Household Members: Family Household Members Other:: niece Housing: Apartment Are you a primary child care attendant to a significant other at home: No Do you presently have visiting nurse or other home services: No 75 years or older and lives alone: No Alcohol intake: never Comment: NONE Patient Tobacco Use Status: Never used Tobacco Second Hand Smoke Exposure: No Substance Use Type: Marijuana service: No Current occupational status: disabled 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 Review of Systems Const Denies chills, Denies excessive sweating, Denies fever(s), Denies headache(s) and Denies night sweats Eyes Denies dry eyes, Denies irritation and Denies itchy eyes ENT Reports Normal hearing present, Denies headache(s), Denies nasal congestion, Denies nasal discharge, Denies post nasal drip and Denies sore throat Card Denies chest pain, Denies chest pain at rest, Denies chest pain with activity, Denies claudication, Denies leg edema, Denies orthopnea and Denies paroxysmal nocturnal dyspnea Resp Denies chest congestion, Denies cough, Denies excessive phlegm production, Denies pain on inspiration, Denies pain with cough, Denies stridor and Denies wheezing Musc Denies myalgias Neuro Reports Normal hearing present and Denies headache(s) Endo Denies excessive sweating Abner/Lymph Denies lymphadenopathy Aller/Immun Denies itchy eyes, Denies seasonal rhinorrhea and Denies wheezing Physical Exam Vital Signs: Last Vital Signs Pulse 71 07/30/23 14:13 BP 120/70 07/30/23 14:13 Pulse Ox 97 07/30/23 14:13 Oxygen Delivery Method Room Air 07/30/23 14:13 BMI result Body Mass Index 52.1 Const General: cooperative, healthy appearing, comfortable, no acute distress, well developed and alert Nutritional Appearance: obese Orientation/consciousness: patient oriented x3 Limitations: no limitations HEENT Head: Yes normal to inspection, Yes normocephalic and Yes atraumatic Ears: hearing grossly normal bilaterally and external ears normal Eyes General: appearance normal, both eyes and all related structures Eyelids: Yes eyelids normal Sclerae: sclerae normal EOM: EOMs intact bilaterally Neck Neck: Yes normal visual inspection and Yes no lymphadenopathy Lymphatic: no lymphadenopathy noted Chest Chest palpation & inspection: normal inspection of the chest Resp Effort & Inspection: normal respiratory effort, able to speak in complete sentences, no audible wheezes, no cough, no stridor, not tachypneic, no tripod positioning and no use of accessory muscles Auscultation: clear to auscultation bilaterally Cardio Jugular venous distension: no JVD Rate: regular rate Rhythm: regular rhythm Skin Other: warm, dry General skin exam: no rashes or lesions noted Neuro General: patient oriented x3 Cranial nerves: Yes Normal hearing present Cognition (Neuro): normal cognition Gait exam (Neuro): Normal gait present Extrem General: Yes normal to inspection, Yes capillary refill normal, Yes no clubbing, cyanosis or edema and Yes no pedal edema Psych Appearance: grossly normal and well kempt Speech and movement: Normal speech and movement present and Clear speech present Affect: normal affect Attitude: cooperative Thought process: Normal thought process present Thought content: Normal thought content present Insight: Good insight present (Psych) Judgement: Good judgement present (Psych) Assessment & Plan Assessment & Plan (1) Asthma: Code(s): J45.909 - Unspecified asthma, uncomplicated Category: Medical Qualifiers: Asthma severity: mild Asthma persistence: intermittent Asthma complication type: uncomplicated Qualified Code(s): J45.20 - Mild intermittent asthma, uncomplicated (2) Restrictive lung disease: Comment: r/t BMI Code(s): J98.4 - Other disorders of lung Category: Medical (3) Allergic rhinitis: Code(s): J30.9 - Allergic rhinitis, unspecified Category: Medical (4) Morbidly obese: Code(s): E66.01 - Morbid (severe) obesity due to excess calories Category: Medical (5) Obstructive sleep apnea: Comment: on Bipap Code(s): G47.33 - Obstructive sleep apnea (adult) (pediatric) Category: Medical Plan Shereen reports good control of respiratory symptoms on Asmanex, advised to continue. In regards to BiPAP therapy, patient reports poor control of symptoms with persistent morning headaches and daytime fatigue. Will send for titration study to ensure optimal pressures. Will follow up after in lab PSG. All questions were answered and patient is in agreement of plan. Orders: Orders RT PSG in-lab sleep titration Today G47.33 - Obstructive sleep apnea (adult) (pediatric), R40.0 - Somnolence, R51.9 - Headache, unspecified
[2023-07-30 14:13] VITALS: BP 120/70; PULSE 71; O2SAT 97; BMI 52.1
== END 2023-07-30 14:35 | disposition home or self-care (01) ==
LOC: HO.HPS 14:10
PROVIDERS: PCP Family Medicine; Visit Provider Nurse Practitioner Family
DX: J45.20 Mild intermittent asthma, uncomplicated (principal); J98.4 Other disorders of lung; J30.9 Allergic rhinitis, unspecified; E66.01 Morbid (severe) obesity due to excess calories; G47.33 Obstructive sleep apnea (adult) (pediatric)
CPT/HCPCS: 99214

== ENCOUNTER 2023-08-01 11:13 | Outpatient (AMB) | payer OTHER, SELFPAY ==
--- NOTE | 2023-08-01 11:21 | MHC.OFFVIS ---
Vital Signs 08/01/23 11:25 Height 5 ft 1 in Weight 275 lb BMI 52.0 Intake Visit Reasons: Newprob- lower back pain Intake Note: Shereen is a 48 year old female who presents today for a evaluation of her lower back pain. Patient reports ongoing pain for a couple months. Hx of going to a pain management program. Pain is worse when when laying, sitting and going down the stairs. Patient expresses that her pain starts from her left side of the lower back and moves down to her left knee. Allergies cefuroxime [From CEFTIN] Allergy (Severe, Verified 08/01/23 11:23) HIVES Medication List - Last Reconciled 08/01/23 by Galina Walsh MD acetaminophen ER 650 mg PO BID albuterol sulfate 90 mcg/actuation 2 puffs inhalation Q4-6H PRN alosetron (Lotronex) 0.5 mg PO BID blood pressure test kit-large As directed blood sugar diagnostic (FreeStyle Lite Strips) As directed blood-glucose meter (FreeStyle [place] Lite kit) As directed cholecalciferol (vitamin D3) (Vitamin D3) 50 mcg PO QPM clonazepam 0.5 mg PO TID PRN cyclobenzaprine 10 mg PO BEDTIME diclofenac sodium 1% 1 ea topical BID dulaglutide (Trulicity) 0.75 mg subcut QWEEK empagliflozin (Jardiance) 10 mg PO QAM ergocalciferol (vitamin D2) 1,250 mcg PO QWEEK escitalopram oxalate 20 mg PO BEDTIME famotidine 40 mg PO DAILY gabapentin 600 mg PO TID hydralazine 100 mg PO BID hydrochlorothiazide 25 mg PO QAM lancets (TRUEplus Lancets) As directed lanolin jwrexrt-nt-k.pet-ceres (Minerin Creme topical) 1 appl topical BID PRN levothyroxine 75 mcg PO DAILY levothyroxine 200 mcg PO QAM [id number]-swjawroi-hqyaldd 24,000-76,000 -120,000 unit (Creon) 2 caps PO QID loperamide 4 mg (2 x 2 mg) PO BID loratadine 10 mg PO DAILY losartan 100 mg PO DAILY metoclopramide HCl 20 mg PO BEDTIME metoclopramide HCl 10 mg PO TIDAC mineral oil-hydrophil petrolat (petrolatum topical ointment) 1 appl topical DAILY mometasone 100 mcg/actuation (Asmanex HFA) 2 puffs inhalation BID montelukast 10 mg PO BEDTIME naloxone 4 mg/actuation (Narcan) 1 spray intranasal Q2M PRN nystatin 1 appl topical BID-TID ondansetron HCl 4 mg PO TID PRN pantoprazole 40 mg PO BID pentosan polysulfate sodium (Elmiron) 200 mg (2 x 100 mg) PO BID 90 days polyvinyl alcohol 1.4% 1 drp ophthalmic (eye) QID PRN solifenacin (Vesicare) 10 mg (2 x 5 mg) PO DAILY 90 days tizanidine 2 mg PO TID PRN tramadol 50 mg PO Q6H PRN verapamil ER 240 mg PO DAILY zolpidem 10 mg PO BEDTIME PRN HPI Comments Details: Seen by ortho for bilateral hip bursitis, s/p injections. Also had knee injections under ortho. Recent Therapeutic medial branch block L2, L3,L4 dorsal ramus L5 bilateral 06/21/22 by Pain Management, Dr. Wright. Patient says she's been getting injections with them every 3 months. Has follow up appointment with them with tomorrow. No lumbar MRI done yet. Low back pain since 2009. Right sided, going to right hips. It does not radiate down to knees or foot. No numbness on feet. Worse with laying down, sitting, walking and standing. On gabapentin prescribed by Pain Management. Takes Tramadol at night, prescribed by PCP. [facility] Medical History Diabetes Hirsutism Varicose veins with pain Restless leg syndrome Congenital pulmonary arteriovenous malformation Urinary retention Epicondylitis, lateral Interstitial cystitis Spinal stenosis of lumbar region Chronic pain syndrome Disc degeneration, lumbar Spondylosis, lumbar, with myelopathy Morbid obesity due to excess calories Arthritis Fibromyalgia Migraines Hypothyroid Restrictive lung disease Allergic rhinitis AISHWARYA on CPAP Surgical History Hx of spinal surgery Hx of cystoscopy Hx of colonoscopy History of esophagogastroduodenoscopy (EGD) Family History Father Alcoholism Mother Leukemia Maternal Aunt Breast cancer Sister Depression Vertigo Family/Other Heart problem Diabetes Cancer Brother Atherosclerotic cardiovascular disease Cardiomegaly Social History Household Members: Family Household Members Other:: niece Housing: Apartment Are you a primary rn care manager to a significant other at home: No Do you presently have visiting nurse or other home services: No 75 years or older and lives alone: No Alcohol intake: never Comment: NONE Patient Tobacco Use Status: Never used Tobacco Second Hand Smoke Exposure: No Substance Use Type: Marijuana service: No Current occupational status: disabled 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 Patient was appropriately conversant and oriented. Good historian. MSK: No specific abnormalities found on inspection of the spine and all extremities. Tender over right SI and GT. Non tender on lumbar paraspinals or facets. Lumbar ROM was full. Bilateral hip, knee and ankle ROM WNL. No ligamentous laxity or crepitance. No increased effusion. Straight-leg raising test negative. FABERE test negative. Strength is 5/5 in all muscle groups tested. No increased tone noted. Neurological: Neurologic examination of the upper and lower extremities was nonfocal with intact sensation, muscle stretch reflexes and without focal motor deficits . Saab?s negative bilaterally. Babinski was down going bilaterally. Clonus was negative. Gait is non-antalgic without loss of balance. Results Reviewed Results Reviewed: Ordering Physician: Isabella Rocha PA-C Date of Service: 06/15/23 Procedure(s): XR hip RT min 2V Accession Number(s): [id number] cc: Isabella Rocha PA-C~ EXAMINATION: XR hip LT min 2V, XR hip RT min 2V CLINICAL INFORMATION: Reason for Exam M25.559 - Pain in unspecified hip COMPARISON: 01/02/2023 TECHNIQUE: Two views of the bilateral hips FINDINGS: * No acute fracture or dislocation. * Mild narrowing of the bilateral femoral acetabular joints. * No soft tissue abnormality. XR/XR hip RT min 2V IMPRESSION: Mild degenerative changes of the bilateral hips. I reviewed records from the following: Ortho Pain management Assessment & Plan Assessment & Plan (1) Sacroiliac joint dysfunction of right side: Code(s): M53.3 - Sacrococcygeal disorders, not elsewhere classified Category: Medical (2) Greater trochanteric bursitis of right hip: Code(s): M70.61 - Trochanteric bursitis, right hip Category: Medical Plan On exam, she has tenderness over right SI joint and right trochanter. She does not describe signs of lumbar radiculopathy. She has already trialed GT injections under ortho without much relief. She is following with Pain Management tomorrow. I wonder if Dr. Wright can consider a right SI joint injection? Advised for patient to discuss with them. She refuses PT referral. Assessment and plan discussed with patient, and patient was agreeable. All questions were answered thoroughly. Galina Walsh MD, LARISSA Board Certified, [place] [employer] and [employer] (ABPMR) Board Certified, [place] [employer] Electro[employer] (ABEM) Coding Level of Care Code New Pt Level 4 (52961) Diagnoses Sacroiliac joint dysfunction of right side M53.3 Greater trochanteric bursitis of right hip M70.61
[2023-08-01 11:25] VITALS: BMI 52.0
== END 2023-08-01 11:47 | disposition home or self-care (01) ==
PROVIDERS: PCP Family Medicine; Visit Provider Physical Medicine & Rehabilitation
DX: M53.3 Sacrococcygeal disorders, not elsewhere classified (principal); M70.61 Trochanteric bursitis, right hip
CPT/HCPCS: 99204

== ENCOUNTER → 2023-08-01 11:13 | Outpatient (BNVA) | payer OTHER, SELFPAY | PROVIDERS: PCP Family Medicine; Visit Provider Physical Medicine & Rehabilitation | DX: R35.0 Frequency of micturition (principal); Z13.9 Encounter for screening, unspecified; R35.1 Nocturia; N39.46 Mixed incontinence; M53.3 Sacrococcygeal disorders, not elsewhere classified; M70.61 Trochanteric bursitis, right hip | CPT/HCPCS: 36415; 51798; 80048; 80061; 80076; 81003; 82150; 82306; 83036; 83690; 84439; 84443; 85025; 86140; 86706; 86780; 87340; 87522; 87536; 87900; 99202; 99212 ==

== ENCOUNTER 2023-08-01 11:48 | Outpatient (AMB) | payer OTHER, SELFPAY ==
--- NOTE | 2023-08-01 11:53 | MHC.OFFVIS ---
Intake Visit Reasons: 6 mth f/u Intake Note: Patient is Present for follow up incontinence Urology Medication: Vesicare Antibiotic Allergies: None Blood Thinners: None PVR: 0ml's Special Projects Coordinator Required: No Accompanied by: Self / Same As Patient Allergies cefuroxime [From CEFTIN] Allergy (Severe, Verified 08/01/23 12:13) HIVES Medication List - Last Reconciled 08/01/23 by TAMIKA Leung acetaminophen ER 650 mg PO BID albuterol sulfate 90 mcg/actuation 2 puffs inhalation Q4-6H PRN alosetron (Lotronex) 0.5 mg PO BID blood pressure test kit-large As directed blood sugar diagnostic (FreeStyle Lite Strips) As directed blood-glucose meter (FreeStyle Sunspot Lite kit) As directed cholecalciferol (vitamin D3) (Vitamin D3) 50 mcg PO QPM clonazepam 0.5 mg PO TID PRN cyclobenzaprine 10 mg PO BEDTIME diclofenac sodium 1% 1 ea topical BID dulaglutide (Trulicity) 0.75 mg subcut QWEEK empagliflozin (Jardiance) 10 mg PO QAM ergocalciferol (vitamin D2) 1,250 mcg PO QWEEK escitalopram oxalate 20 mg PO BEDTIME famotidine 40 mg PO DAILY gabapentin 600 mg PO TID hydralazine 100 mg PO BID hydrochlorothiazide 25 mg PO QAM lancets (TRUEplus Lancets) As directed lanolin zqfmahf-ky-u.pet-ceres (Minerin Creme topical) 1 appl topical BID PRN levothyroxine 75 mcg PO DAILY levothyroxine 200 mcg PO QAM mvvrvn-rachobfj-xyktzls 24,000-76,000 -120,000 unit (Creon) 2 caps PO QID loperamide 4 mg (2 x 2 mg) PO BID loratadine 10 mg PO DAILY losartan 100 mg PO DAILY metoclopramide HCl 20 mg PO BEDTIME metoclopramide HCl 10 mg PO TIDAC mineral oil-hydrophil petrolat (petrolatum topical ointment) 1 appl topical DAILY mometasone 100 mcg/actuation (Asmanex HFA) 2 puffs inhalation BID montelukast 10 mg PO BEDTIME naloxone 4 mg/actuation (Narcan) 1 spray intranasal Q2M PRN nystatin 1 appl topical BID-TID ondansetron HCl 4 mg PO TID PRN pantoprazole 40 mg PO BID pentosan polysulfate sodium (Elmiron) 200 mg (2 x 100 mg) PO BID 90 days polyvinyl alcohol 1.4% 1 drp ophthalmic (eye) QID PRN solifenacin (Vesicare) 10 mg (2 x 5 mg) PO DAILY 90 days tizanidine 2 mg PO TID PRN tramadol 50 mg PO Q6H PRN verapamil ER 240 mg PO DAILY zolpidem 10 mg PO BEDTIME PRN HPI Comments Details: Shereen is a pleasant 47 year old female patient of Dr. Parry. She has a past medical history of allergic rhinitis, diabetes, arthritis, chronic pain syndrome, lumbar disc degeneration, fibromyalgia, hypothyroidism, interstitial cystitis, migraines, morbid obesity, obstructive sleep apnea, restrictive lung disease, and spinal stenosis. She presents to the office today for follow-up of her interstitial cystitis and mixed urinary incontinence. Of note, patient underwent cystoscopy with bladder Botox with Dr. Simental on 02/05 in the OR. In discussion with the patient today she reports noting significant improvement in overactive bladder symptoms since then however does feel symptoms of overactive bladder are returning. She does continue to report the need to wear adult diapers however feels she is changing them less frequent then before. When asked she reports to be doing and feeling well. She discusses following up with her psychiatrist and PCP and hopefully soon will be able to get her own place. She discusses living with her niece and feels at times this can be stressful. In office urinalysis results reviewed with the patient today. PVR 0 mL. She discusses having been hospitalized approximately 1 month ago for elevated pancreatic enzymes however was related to her diabetic medication and this has since been discontinued. Patient with a previous in office cystoscopy noting minimal descensus on coughing and normal bladder. She otherwise offers no other issues or concerns at this time. [facility] Medical History Asthma Diabetes mellitus Obstructive sleep apnea Hypothyroidism Hypertension GERD (gastroesophageal reflux disease) Diabetes Hirsutism Varicose veins with pain Restless leg syndrome Congenital pulmonary arteriovenous malformation Urinary retention Epicondylitis, lateral Interstitial cystitis Spinal stenosis of lumbar region Chronic pain syndrome Disc degeneration, lumbar Spondylosis, lumbar, with myelopathy Morbid obesity due to excess calories Arthritis Fibromyalgia Migraines Hypothyroid Restrictive lung disease Allergic rhinitis AISHWARYA on CPAP Surgical History Hx of spinal surgery Hx of cystoscopy Hx of colonoscopy History of esophagogastroduodenoscopy (EGD) Family History Father Alcoholism Mother Leukemia Maternal Aunt Breast cancer Sister Depression Vertigo Family/Other Heart problem Diabetes Cancer Brother Atherosclerotic cardiovascular disease Cardiomegaly Social History Household Members: Family Household Members Other:: niece Housing: Apartment Are you a primary director of home care hospice to a significant other at home: No Do you presently have visiting nurse or other home services: No 75 years or older and lives alone: No Alcohol intake: never Comment: NONE Patient Tobacco Use Status: Never used Tobacco Second Hand Smoke Exposure: No Substance Use Type: Marijuana service: No Current occupational status: disabled 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 Review of Systems Const Reports as per HPI Eyes Reports no additional complaints ENT Reports no additional complaints Card Reports as per HPI Resp Reports as per HPI (Patient reports compliance with CPAP machine) GI Reports no additional complaints Reports as per HPI Musc Reports as per HPI Neuro Reports no additional complaints Psych Reports as per HPI Endo Reports as per HPI Physical Exam Const General: cooperative, comfortable, no acute distress, well developed, alert and awake Nutritional Appearance: obese Orientation/consciousness: patient oriented x3 Limitations: ambulation with cane HEENT Other: hair loss Head: Yes normal to inspection, Yes normocephalic and Yes atraumatic Ears: hearing grossly normal bilaterally Eyes General: appearance normal, both eyes and all related structures Neck Neck: Yes normal visual inspection and Yes trachea midline Chest Chest palpation & inspection: normal inspection of the chest Resp Effort & Inspection: normal respiratory effort and able to speak in complete sentences Cardio Rate: regular rate GI Inspection: Yes Abdominal panniculus present General: Yes no CVA tenderness Back/Spine/Pelvis Back: no CVA tenderness Skin Other: Intertrigo noted to abdominal folds. Neuro General: patient oriented x3 Extrem General: Yes normal to inspection Psych Mental Status: mental status grossly normal Speech and movement: Normal speech and movement present and Clear speech present Affect: normal affect Attitude: cooperative Thought process: Normal thought process present Thought content: Normal thought content present Insight: Fair insight present (Psych) Judgement: Fair judgement present (Psych) Office Procedures Post Void Residual Post Residual Void Post Void Residual (PVR): 0 [id number] Void Residual by ultrasound Results AMB Urinalysis, Automated UA Leukoctes 0 Koby/uL Last Edit by Compasspanchito Batres on 08/01/23 12:10 UA Nitrite Negative Last Edit by [employer] on 08/01/23 12:10 UA Urobilinogen 0.2 mg/dL Last Edit by [employer] on 08/01/23 12:10 UA Protein 15 mg/dL Last Edit by [employer] on 08/01/23 12:10 UA pH 6.0 Last Edit by [employer] on 08/01/23 12:10 UA Blood 0 Gage/uL Last Edit by [employer] on 08/01/23 12:10 UA Specific [place] 1.015 Last Edit by [employer] on 08/01/23 12:10 UA Ketone Negative Last Edit by [employer] on 08/01/23 12:10 UA Bilirubin 0 mg/dL Last Edit by [employer] on 08/01/23 12:10 UA Glucose 0 mg/dL Last Edit by [employer] on 08/01/23 12:10 Results Reviewed Results Reviewed: Laboratory Last Values Urine pH (Auto) 6.0 08/01/23 12:05 Specific [place] (Auto) 1.015 08/01/23 12:05 Urine Protein (Auto) 15 mg/dL 08/01/23 12:05 Glucose (UA)(Auto) 0 mg/dL 08/01/23 12:05 Urine Ketones (Auto) Negative 08/01/23 12:05 Urine Blood (Auto) 0 Gage/uL 08/01/23 12:05 Urine Nitrite (Auto) Negative 08/01/23 12:05 Urine Bilirubin (Auto) 0 mg/dL 08/01/23 12:05 Urine Urobilinogen (Auto) 0.2 mg/dL 08/01/23 12:05 Leukocyte Esterase (Auto) 0 Koby/uL 08/01/23 12:05 Assessment & Plan Assessment & Plan (1) Urinary frequency: Code(s): R35.0 - Frequency of micturition Category: Medical (2) Mixed incontinence urge and stress: Code(s): N39.46 - Mixed incontinence Category: Medical (3) Nocturia more than twice per night: Code(s): R35.1 - Nocturia Category: Medical Plan In office urinalysis results reviewed with the patient today; as noted above. PVR 0 mL. Continue VESIcare as prescribed; refill provided. Patient reports significant improvement in lower urinary tract symptoms since her last bladder Botox injection approximately 6 months ago. She otherwise denies any bothersome urinary issues or concerns. Will schedule for in office cystoscopy with bladder Botox; as discussed Follow-up in office cystoscopy; or sooner with any issues, concerns, and or questions. Orders: Orders AMB Urinalysis Automated Today Z13.9 - Encounter for screening, unspecified AMB Post Void Residual by ultrasound Today N39.46 - Mixed incontinence Patient Instructions: The patient had an opportunity to ask questions regarding the treatment plan. All questions were answered. Physical exam, labs, and imaging were discussed and reviewed in detail. As well as risks, benefits, and discussion of treatment choices. No major barriers to understanding were identified. The patient expressed understanding and agreement with the above treatment plan. The patient was made aware they should contact our office by phone for worsening of their current condition, the appearance of new symptoms, or with any questions or concerns. Compliance is encouraged with any medications and follow up testing that is ordered. It is a privilege to be allowed the opportunity to participate in? your urological care.? Again, if you have any questions or concerns If you have any questions or concerns please do not hesitate to contact me. The office is [phone]. This note is constructed using voice recognition software. While every effort has been made to ensure accuracy heel gouger errors may have been included. Yours sincerely, TAMIKA Leung Coding Level of Care Code Est Pt Level 3 (95139) Diagnoses Urinary frequency R35.0 Mixed incontinence urge and stress N39.46 Nocturia more than twice per night R35.1 CPT Codes Post Residual Void - PVR CPT Code: 06840-Pvsv Void Residual by ultrasound ([id number])
== END 2023-08-01 12:21 | disposition home or self-care (01) ==
PROVIDERS: PCP Family Medicine; Visit Provider Nurse Practitioner Family
DX: R35.0 Frequency of micturition (principal); N39.46 Mixed incontinence; R35.1 Nocturia; Z13.9 Encounter for screening, unspecified
CPT/HCPCS: 99213

== ENCOUNTER 2023-08-01 12:42 | Outpatient (REF) | payer OTHER, SELFPAY ==
[2023-08-01 13:30] LABS: MANUAL DIFF FLAG NO
[2023-08-01 15:18] LABS: Basophils Percent Auto 0.2 % (0-2); Eosinophils Absolute Auto 0.1 X10*3/uL (0.0-0.4); Eosinophils Percent Auto 0.9 % (0-4); Hemoglobin 14.8 g/dl (12.0-16.0); Imm Gran Abs Auto 0.03 X10*3/uL (0.00-0.03); Imm Gran Pct Auto 0.3 % (0.0-0.4); Lymphocytes Absolute Auto 1.6 X10*3/uL (1.2-4.9); Mean Corpuscular HGB Conc 34.4 g/dl (31.0-35.0); Mean Corpuscular Hemoglobin 30.5 pg (27.0-33.0); Mean Corpuscular Volume 88.7 fL (80.0-98.0); Mean Platelet Volume 9.8 fL (9.4-12.3); Monocytes Absolute Auto 0.5 X10*3/uL (0.1-1.2); Monocytes Percent Auto 5.3 % (2-11); Neutrophils Absolute Auto 6.7 x10*3/uL (2.0-8.3); Neutrophils Percent Auto 75.3 % (45-73); Platelet Count 268 X10*3/uL (160-400); Red Blood Count 4.85 X10*6/uL (4.20-5.50); Red Cell Distribution Width 13.6 % (11.0-16.0)
[2023-08-01 15:22] LABS: Estimated Average Glucose 100 mg/dL; Hemoglobin A1c % 5.1 % (<6.0)
[2023-08-01 16:17] LABS: Alanine Aminotransferase 14 U/L (0-31); Albumin Level 3.9 g/dL (3.5-5.0); Alkaline Phosphatase 72 U/L (39-117); Anion Gap 10 (12-20); Aspartate Amino Transferase 13 U/L (5-31); Bilirubin Direct 0.2 mg/dL (0.0-0.5); Bilirubin Total 0.6 mg/dL (0.0-1.0); Blood Urea Nitrogen 8 mg/dL (9-16); C Reactive Protein 0.29 mg/dL (< or = 0.50); Calcium 9.4 mg/dL (8.4-10.2); Carbon Dioxide 26 mmol/L (22-29); Chloride 107 mmol/L (96-108); Cholesterol 150 mg/dL (<200); Estimated Glomerular Filt Rate > 60; Free T4 (Free Thyroxine) 1.01 ng/dL (0.71-1.85); Glucose Random 79 mg/dL (60-115); HDL Cholesterol 49 mg/dL (>40); LDL Cholesterol Calculated 89 mg/dL (<100); Lipase 21 U/L (8-78); Potassium 3.8 mmol/L (3.3-5.1); Sodium 139 mmol/L (135-145); Thyroid Stimulating Hormone 0.65 uIU/mL (0.32-4.0); Total Protein 7.3 g/dL (6.5-8.0); Triglycerides 64 mg/dL (<150); Vitamin D 25-OH Total 13.1 ng/mL (>30)
[2023-08-01 16:30] LABS: Amylase 41 U/L (28-100)
[2023-08-02 05:04] LABS: Syphilis Screen Nonreactive (Nonreactive)
[2023-08-02 05:21] LABS: HBS Num1 3.16 mIU/mL (0-7.99); HBsAGNum1 0.42 S/CO (0.00-0.99); Hepatitis B Surface Antigen Negative (Negative); ~Hepatitis B Surface Antibody NONREACTIVE (Nonreactive)
[2023-08-03 11:28] LABS: HCV RNA PCR Qn <1.18 NOT DETECTED Log IU/mL (NOT DETECTED); HCV RNA PCR Qn <15 NOT DETECTED IU/mL (NOT DETECTED)
[2023-08-04 16:53] LABS: HIV RNA PCR Qn Copies Not Detected Copies/mL; HIV RNA PCR Qn Log Copies Not Detected Log cps/mL
== END 2023-08-01 12:43 | disposition home or self-care (01) ==
LOC: HO.LAB 12:42
PROVIDERS: PCP Family Medicine; Visit Provider Family Medicine
DX: Z13.89 Encounter for screening for other disorder (principal)
CPT/HCPCS: 36415; 80048; 80061; 80076; 82150; 82306; 83036; 83690; 84439; 84443; 85025; 86140; 86706; 86780; 87340; 87522; 87536; 87900

== ENCOUNTER → 2023-08-24 20:30 | Outpatient (REF) | payer OTHER, SELFPAY | LOC: HO.SL 20:30 | PROVIDERS: Visit Provider Nurse Practitioner Family | DX: G47.33 Obstructive sleep apnea (adult) (pediatric) (principal); G47.34 Idiopathic sleep related nonobstructive alveolar hypoventilation; R40.0 Somnolence; R51.9 Headache, unspecified | CPT/HCPCS: 95811 ==

== ENCOUNTER 2023-08-28 14:23 | Outpatient (AMB) | payer OTHER, SELFPAY ==
--- NOTE | 2023-08-28 14:27 | MHC.OFFVIS ---
Vital Signs 08/28/23 14:32 Height 5 ft 1 in Weight 275 lb BMI 52.0 BP 129/85 Blood Pressure Location Rt radial Position Sitting Pulse 94 Intake Visit Reasons: 3-4 week follow up per - patient r/s'd Intake Note: Shereen presents in the office as a 3-4 week follow up. CC: She was seen in the ED and was told to stop her viberzi. Pancreas levels were very high, she was getting cramps and diarrhea. She states she was having all these on her birthday. She is feeling depressed and tired and she just feels like she has a lot going on. Allergies cefuroxime [From CEFTIN] Allergy (Severe, Verified 08/28/23 14:30) HIVES HPI HPI 3-4 week follow up per - patient r/s'd: Details: Assessment & Plan (1) Hemorrhoids: Code(s): K64.9 - Unspecified hemorrhoids (2) Family history of colon cancer: Comment: sister Code(s): Z80.0 - Family history of malignant neoplasm of digestive organs (3) Pre-op examination: Code(s): Z01.818 - Encounter for other preprocedural examination Plan She started on Trulicity and this has slowed her stooling, and she still uses the Viberzi but at times skips doses. She is moving her bowels more frequently now with soft stooling. She is not having some rectal irritation and would like the cream with lidocaine. She will be having back injections and needs to hold her trulicity. SHe has lost weight recently, likely from Trulicity. She was told to wait an hour between her Tramadol and the Viberzi - given the ling 1/2 life of Viberzi this would not really have any effect and the low lever of opiate in the VIberzi does not necessitate this complication of her therapy. She continues to work with a therapist for her [place] and her feeling overwhelmed with her health problems. She will do better with her own apt. She continues on protonix bid, reglan 10mg 1 tabs tid and 2 qhsand Viberzi 75mcg qd to bid. She will have stomach pain with eating, but has been forgetting to take her reglan, same with qhs nausea. I educated her about how to use this and the reason why. She is hoping to get her new subsidized apt soon so that she will have less anxiety dealing with her family. RX VIBERZI She is over due for colonoscopy her last in 2012. Her sister recently had one and had CRC, so this is important. ROV 6 mos and after scope. Orders: Orders Colonoscopy - GI Use Only Today Z01.818 - Encounter for other preprocedural examination, Z80.0 - Family history of malignant neoplasm of digestive organs Medications: New famotidine 40 mg PO DAILY 30 tabs 6RF lidocaine HCl-hydrocortison ac 3-0.5 % 1 appl ME BID 98 grams 3RF K64.9 - Unspecified hemorrhoids bisacodyl (Dulcolax (bisacodyl)) 10 mg (2 x 5 mg) PO BEDTIME 2 days 4 tabs 0RF Refilled pantoprazole 40 mg PO BID 180 tabs 6RF K21.9 - Gastro-esophageal reflux disease without esophagitis jyappy-njrnekqm-lomqiih 24,000-76,000 -120,000 unit (Creon) 2 caps PO QID 240 caps 6RF metoclopramide HCl 1 tab tidac and 2 tabs qhs orally 4 times a day; 159 tabs 6RF K31.84 - Gastroparesis eluxadoline (Viberzi) must administer with a meal/food 75 mg PO BID 60 tabs 5RF COLONOSCOPY SCHEDULED FOR 10/09/2023 BIOPSY CORRESPONDENCE On 07/12/23 @ 15:03 Layla Chester Wrote To Velia Holt (3) Spoke to Dr Parry and her questions were answered. She is requesting an earlier FU appointment following her recent hospitalization. Please schedule in 3-[address] Parry ordered repeat LFTs Thanks On 07/12/23 @ 14:26 Cynthia Alegria Wrote To Layla Chester This patient's pcp office called and stated that is a little confused by this patients diagnosis from the hospital visit she had. She stated that the consultation note states the patient has pancreatitiis and then the discharge paper states other browning. They said the discharge paperwork she has states for her to follow up with you but she hasn't called the office for this. would like to speak with you her direct number is [phone] TODAY'S VISIT Pt has been on Eluxadoline (Viberzi) intermittently for the past year which is associated with a risk of pancreatitis and sphincter of Oddi spasm - Most cases of pancreatitis related to Viberzi were within a week of starting treatment She has not had a return of the pain since stopping the Viberzi. However, it should be noted if the pain returns that she is also on Trulicity and hydrochlorothiazide which can also be triggers for pancreatitis. She is overdue for screening colonoscopy.It is scheduled for October. Her anxiety has been much worse and she will be going to [place] again to get away from her immediate family. Her [facility] providers are not helping her with filling out her paperwork to get housing for herself to live away from her family in this area. She is having more diarrhea lately and we will increase the loronex from 0.5mg bid to 1mg bid. She continues on Creon, metoclopramide, pantoprazole 40 mg twice a day. Keep 10/22 appt after procedure. [facility] Medical History (Updated 08/28/23 @ 14:31 by JOANNE Vazquez) Pre-op examination Asthma Diabetes mellitus Obstructive sleep apnea Hypothyroidism Hypertension GERD (gastroesophageal reflux disease) Diabetes Hirsutism Varicose veins with pain Restless leg syndrome Congenital pulmonary arteriovenous malformation Urinary retention Epicondylitis, lateral Interstitial cystitis Spinal stenosis of lumbar region Chronic pain syndrome Disc degeneration, lumbar Spondylosis, lumbar, with myelopathy Morbid obesity due to excess calories Arthritis Fibromyalgia Migraines Hypothyroid Restrictive lung disease Allergic rhinitis AISHWARYA on CPAP Surgical History Hx of spinal surgery Hx of cystoscopy Hx of colonoscopy History of esophagogastroduodenoscopy (EGD) Family History Father Alcoholism Mother Leukemia Maternal Aunt Breast cancer Sister Depression Vertigo Family/Other Heart problem Diabetes Cancer Brother Atherosclerotic cardiovascular disease Cardiomegaly Social History Household Members: Family Household Members Other:: niece Housing: Apartment Are you a primary health care coordinator to a significant other at home: No Do you presently have visiting nurse or other home services: No 75 years or older and lives alone: No Alcohol intake: never Comment: NONE Patient Tobacco Use Status: Never used Tobacco Second Hand Smoke Exposure: No Substance Use Type: Marijuana service: No Current occupational status: disabled 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 Review of Systems Const Denies fatigue, Denies fever(s), Denies night sweats, Denies poor appetite and Denies weight loss ENT Reports Normal hearing present, Denies dental pain, Denies dysphagia, Denies hearing loss, Denies mouth pain, Denies odynophagia, Denies throat swelling, Denies tongue swelling and Reports other (Dentition adequate) Card Reports no additional complaints Resp Reports no additional complaints GI Details: Denies abdominal pain, Denies melena, Denies bloating, Denies hematochezia, Denies constipation, Denies GI cramping, Denies dysphagia, Denies excessive flatus, Reports early satiety, Reports heartburn, Reports diarrhea, Reports nausea, Denies odynophagia, Denies vomiting and Denies hematemesis Musc Reports abnormal gait, Reports back pain and Reports arthralgias Skin/Breast Denies pruritus, Denies lesions, Denies rash and Denies jaundice Neuro Reports Normal hearing present, Denies Abnormal speech present and Reports abnormal gait Psych Reports anxiety, Reports depression, Denies hopelessness and Denies suicidal ideation Endo Denies fatigue Aller/Immun Denies throat swelling and Denies tongue swelling Physical Exam Vital Signs: Last Vital Signs Pulse 94 08/28/23 14:32 BP 129/85 08/28/23 14:32 BMI result Body Mass Index 52.0 Const General: cooperative, no acute distress, well developed and well groomed Nutritional Appearance: well nourished and obese morbidly obese Orientation/consciousness: oriented to person, oriented to place and oriented to time Limitations: No language barrier and ambulation with walker HEENT Head: Yes normocephalic and Yes atraumatic Eyes General: appearance normal, both eyes and all related structures Pupils: Equal, round and reactive pupils present Neck Neck: Yes normal visual inspection and Yes no lymphadenopathy Thyroid: Thyroid normal Resp Effort & Inspection: normal respiratory effort and able to speak in complete sentences Auscultation: clear to auscultation bilaterally Cardio Rate: regular rate Rhythm: regular rhythm Heart sounds: Normal, physiologic split S2 sound present Peripheral pulses: radial pulses present and posterior tibial pulses present GI Inspection: No distended, Yes Abdominal panniculus present and Yes obesity Palpation (GI): Soft to palpation, nontender, no guarding, not rigid and No hepatosplenomegaly present Percussion: Yes normal to percussion Auscultation: normal bowel sounds Rectal Exam - Female: deferred Skin General skin exam: no rashes or lesions noted, turgor normal, skin not dry, no jaundice, No spider nevi and no striae Rashes: no rashes Nails: normal Neuro General: oriented to person, oriented to place and oriented to time Cranial nerves: Yes Equal, round and reactive pupils present and Yes Normal hearing present Speech: No Abnormal speech present Extrem General: Yes normal to inspection, No clubbing, No cyanosis and No edema Psych Appearance: grossly normal and well kempt Mental Status: mental status grossly normal Speech and movement: Normal speech and movement present Affect: normal affect Attitude: cooperative Thought process: Normal thought process present and not confabulating Thought content: Normal thought content present Insight: Fair insight present (Psych) Judgement: Fair judgement present (Psych) Assessment & Plan Assessment & Plan (1) Irritable bowel syndrome with diarrhea: Code(s): K58.0 - Irritable bowel syndrome with diarrhea Category: Medical (2) Gastroparesis: Code(s): K31.84 - Gastroparesis Category: Medical (3) Pancreatitis: Code(s): K85.90 - Acute pancreatitis without necrosis or infection, unspecified Category: Medical Plan Pt has been on Eluxadoline (Viberzi) intermittently for the past year which is associated with a risk of pancreatitis and sphincter of Oddi spasm - Most cases of pancreatitis related to Viberzi were within a week of starting treatment She has not had a return of the pain since stopping the Viberzi. However, it should be noted if the pain returns that she is also on Trulicity and hydrochlorothiazide which can also be triggers for pancreatitis. She is overdue for screening colonoscopy.It is scheduled for October. Her anxiety has been much worse and she will be going to [place] again to get away from her immediate family. Her [facility] providers are not helping her with filling out her paperwork to get housing for herself to live away from her family in this area. She is having more diarrhea lately and we will increase the loronex from 0.5mg bid to 1mg bid. She continues on Creon, metoclopramide, pantoprazole 40 mg twice a day. Keep 10/22 appt after procedure. COLONOSCOPY SCHEDULED FOR 10/09/2023 BIOPSY Medications: New alosetron (Lotronex) 1 mg PO BID 60 tabs 6RF K58.0 - Irritable bowel syndrome with diarrhea Changed From metoclopramide HCl 10 mg PO TIDAC To metoclopramide HCl 10mg qac tid and 20mg qhs orally 3 times a day before meals; 150 tabs 6RF Refilled pantoprazole 40 mg PO BID 180 tabs 6RF K21.9 - Gastro-esophageal reflux disease without esophagitis ygukcr-flytcmyc-midhwsu 24,000-76,000 -120,000 unit (Creon) 2 caps PO QID 240 caps 6RF Discontinued alosetron (Lotronex) Discontinued Reason: Doctor's Order 0.5 mg PO BID 60 tabs 6RF K58.0 - Irritable bowel syndrome with diarrhea Coding Level of Care Code Est Pt Level 3 (77050) Diagnoses Irritable bowel syndrome with diarrhea K58.0 Gastroparesis K31.84 Pancreatitis K85.90
[2023-08-28 14:32] VITALS: BP 129/85; PULSE 94; BMI 52.0
== END 2023-08-28 14:58 | disposition home or self-care (01) ==
PROVIDERS: PCP Family Medicine; Visit Provider Nurse Practitioner
DX: K58.0 Irritable bowel syndrome with diarrhea (principal); K31.84 Gastroparesis; K85.90 Acute pancreatitis without necrosis or infection, unspecified
CPT/HCPCS: 99213

== ENCOUNTER → 2023-08-28 14:23 | Outpatient (BNVA) | payer OTHER, SELFPAY | PROVIDERS: PCP Family Medicine; Visit Provider Nurse Practitioner | DX: K58.0 Irritable bowel syndrome with diarrhea (principal); K31.84 Gastroparesis; K85.90 Acute pancreatitis without necrosis or infection, unspecified | CPT/HCPCS: 99212 ==

== ENCOUNTER 2023-09-07 13:20 | Outpatient (AMB) | payer OTHER, SELFPAY ==
--- NOTE | 2023-09-07 13:57 | A.OFFVIS_ITS ---
Intake Visit Reasons: cysto/botox(PA Set) Intake Note: Patient is Present for Cystoscopy with Botox Injections Urology Med: [facility] Antibiotic Allergy:None Blood Thinner: None URO- G Disposable Cystoscope lot: [id number] exp: Allergies cefuroxime [From CEFTIN] Allergy (Severe, Verified 11/21/23 12:00) HIVES HPI Comments Details: Shereen is a pleasant 47 year old female patient of Dr. Parry. She has a past medical history of allergic rhinitis, diabetes, arthritis, chronic pain syndrome, lumbar disc degeneration, fibromyalgia, hypothyroidism, interstitial cystitis, migraines, morbid obesity, obstructive sleep apnea, restrictive lung disease, and spinal stenosis. S Here for Botox Has taken antibiotics Urinary urgency and frequency Prior therapy with Myrbetriq that reported to not be working Does feel improvement with 5 mg [facility] - NAD Low PVR Cystoscopy performed - Minimal descensus on coughing at cystoscopy, Normal bladder PFSH Medical History (Updated 11/30/23 @ 12:47 by Wilfred Simental MD) Disc degeneration, lumbar Nausea and vomiting Left forearm pain Patellofemoral arthralgia of right knee Urinary frequency Fungal infection of skin of abdomen Greater trochanteric bursitis of right hip Greater trochanteric bursitis of left hip Family history of colon cancer Daytime somnolence Morning headache Pre-op examination Asthma Diabetes mellitus Obstructive sleep apnea Hypothyroidism Hypertension GERD (gastroesophageal reflux disease) Diabetes Hirsutism Varicose veins with pain Restless leg syndrome Congenital pulmonary arteriovenous malformation Urinary retention Epicondylitis, lateral Interstitial cystitis Spinal stenosis of lumbar region Chronic pain syndrome Spondylosis, lumbar, with myelopathy Morbid obesity due to excess calories Arthritis Fibromyalgia Migraines Hypothyroid Restrictive lung disease Allergic rhinitis AISHWARYA on CPAP Surgical History Hx of spinal surgery Hx of cystoscopy Hx of colonoscopy History of esophagogastroduodenoscopy (EGD) Family History Father Alcoholism Mother Leukemia Maternal Aunt Breast cancer Sister Depression Vertigo Family/Other Heart problem Diabetes Cancer Brother Atherosclerotic cardiovascular disease Cardiomegaly Social History Household Members: Family Household Members Other:: niece Housing: Apartment Are you a primary spiritual care coordinator to a significant other at home: No Do you presently have visiting nurse or other home services: No 75 years or older and lives alone: No Alcohol intake: never Comment: NONE Patient Tobacco Use Status: Never used Tobacco Second Hand Smoke Exposure: No Substance Use Type: Marijuana service: No Current occupational status: disabled 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 Information consent for procedure given to the patient. Discussed technical aspects, risks, benefits and alternatives in full. Addressed all of the patient's questions and concerns regarding the procedure. The patient demonstrated knowledge and understanding. They wish to proceed with this procedure. Preparation The patient was prepped in the usual manner. A cashier courtesy booth was present and in the room. Genitalia was prepped with betadine solution in a sterile manner. Lidocaine Jelly 2% was placed into the urethra and 16Fr flexible Olympus cystoscope was inserted into the meatus after adequate lubrication. Procedure Cystoscopy performed with 16 Tajik cystoscope. Bladder had been prepped with lidocaine and lidocaine jelly placement 15 minutes prior to procedure. Antibiotics were administrated for 2 days prior to procedure. UA has been performed and shows no evidence of infection. Bladder was emptied of urine. Bladder was refilled. Using 100 units of Botox mixed in 10 cc of normal saline injections were placed at the back wall of the bladder. 0.5cc placed at each injection site. Injections were placed in a grid 5 across and 4 high. Injections were placed from the inferior to superior position. Trabeculations on the bladder wall were targeted if present. Procedure was tolerated well. 2 week follow-up for PVR Patient prepped with idodine and 14 fr catheter used to instill cocktail of: 20 mls bupivicaine 0.50% 5ml lidocaine 2% 2 lidocaine urojets (20mls) 20114 - Botox Injection, urethra or bladder DISPOSABLE SCOPE URO-N NEEDLE SCOPE Procedure code (CPT) selection complete Office Meds lidocaine HCl 2 % mucosal jelly in applicator Performing Provider: Wilfred Simental MD [facility] Administered by: Alexander Hines LPN on 09/07/23 14:10 Dose Route Admin Location Dispensed Lot Number Expiration Date [facility] [employer] 10 mL intra-urethral 20 mL onabotulinumtoxinA 100 unit solution for injection Performing Provider: Wilfred Simental MD Performing Location: [facility] [place] [facility] Administered by: Alexander Hines LPN on 09/07/23 14:10 Dose Route Admin Location Dispensed Lot Number Expiration Date [place] [employer] 100 unit transurethral 1 ea naproxen 500 mg tablet Performing Provider: Wilfred Simental MD Performing Location: [facility] [place] [facility] Administered by: Alexander Hines LPN on 09/07/23 14:10 Dose Route Admin Location Dispensed Lot Number Expiration Date NDC [employer] 500 mg PO 1 tab Results AMB Urinalysis, Automated UA Leukoctes 15 Koby/uL Last Edit by Daija Carbajal Dee on 09/07/23 13:59 UA Nitrite Negative Last Edit by Daija Carbajal [facility] on 09/07/23 13:59 UA Urobilinogen 0.2 mg/dL Last Edit by Daija Carbajal A on 09/07/23 13:5 9 UA Protein 30 mg/dL Last Edit by Daija Carbajal [facility] on 09/07/23 13:59 UA pH 6.0 Last Edit by Daija Carbajal [facility] on 09/07/23 13:59 UA Blood 0 Gage/uL Last Edit by Daija Carbajal [facility] on 09/07/23 13:59 UA Specific Axis 1.025 Last Edit by Daija Carbajal A on 09/07/23 13: 59 UA Ketone Negative Last Edit by Daija Carbajal [facility] on 09/07/23 13:59 UA Bilirubin 0 mg/dL Last Edit by Daija Carbajal [facility] on 09/07/23 13:59 UA Glucose 0 mg/dL Last Edit by Daija Carbajal [facility] on 09/07/23 13:59 Results Reviewed Results Reviewed: Laboratory Last Values Urine pH (Auto) 6.0 09/07/23 13:57 Specific Axis (Auto) 1.025 09/07/23 13:57 Urine Protein (Auto) 30 mg/dL 09/07/23 13:57 Glucose (UA)(Auto) 0 mg/dL 09/07/23 13:57 Urine Ketones (Auto) Negative 09/07/23 13:57 Urine Blood (Auto) 0 Gage/uL 09/07/23 13:57 Urine Nitrite (Auto) Negative 09/07/23 13:57 Urine Bilirubin (Auto) 0 mg/dL 09/07/23 13:57 Urine Urobilinogen (Auto) 0.2 mg/dL 09/07/23 13:57 Leukocyte Esterase (Auto) 15 Koby/uL 09/07/23 13:57 Assessment & Plan Assessment & Plan (1) Nocturia more than twice per night: Code(s): R35.1 - Nocturia Category: Medical (2) Overactive bladder: Code(s): N32.81 - Overactive bladder Category: Medical Plan Two week follow-up PVR Orders: Orders AMB Cystoscopy 09/07/23 R35.0 - Frequency of micturition AMB Urinalysis Automated 09/07/23 Z13.9 - Encounter for screening, unspecified Patient Instructions: Imaging studies, laboratory and physical exam results were discussed and reviewed in detail. No major barriers to patient understanding were identified. An opportunity to ask questions regarding the treatment plan was provided. All questions were answered. The patient expressed understanding and agreement with the above treatment plan. The patient is aware they should contact our office by phone for worsening of their current condition or the appearance of new urologic symptoms. Compliance is encouraged with any medications and followup testing that is ordered. It is a privilege to participate in the urologic care of your patient. If you have any questions or concerns regarding treatment for the above conditions, or other urologic issues, please do not hesitate to contact me. The office telephone contact is [phone]. This note is constructed using voice recognition software. While every effort has been made to ensure accuracy director of anesthesia services errors may have been included. Yours sincerely, Dr Wilfred Simental MD, [facility] - Urology Providers of Expert, Compassionate Care for the Genitourinary System Coding Level of Care Code Procedure Only Diagnoses Nocturia more than twice per night R35.1 Overactive bladder N32.81 CPT Codes Cystoscopy - CPT: 17596 - Botox Injection, urethra or bladder ([id number])
== END 2023-09-07 15:12 | disposition home or self-care (01) ==
PROVIDERS: PCP Family Medicine; Visit Provider Urology
DX: R35.0 Frequency of micturition (principal); Z13.9 Encounter for screening, unspecified
CPT/HCPCS: 52287

== ENCOUNTER → 2023-09-07 13:20 | Outpatient (BNVA) | payer OTHER, SELFPAY | PROVIDERS: PCP Family Medicine; Visit Provider Urology | DX: N30.10 Interstitial cystitis (chronic) without hematuria (principal); R35.0 Frequency of micturition; N39.46 Mixed incontinence | CPT/HCPCS: 52287; 81003; J0585 ==

== ENCOUNTER 2023-09-17 15:44 | Outpatient (AMB) | payer OTHER, SELFPAY ==
--- NOTE | 2023-09-17 14:54 | A.OFFVIS_ITS ---
Intake Visit Reasons: Asthma Allergies cefuroxime [From CEFTIN] Allergy (Severe, Verified 09/07/23 14:30) HIVES HPI HPI Asthma: Details: Shereen is a pleasant 48 year old female, never smoker, with underlying asthma, morbid obesity and AISHWARYA on CPAP therapy. She has been using singulair, and Asmanex 100 mcg with good control of symptoms. At the last visit, she was sent for PSG and presents to review results. Today's visit was conducted via telephone. [facility] Medical History Pre-op examination Asthma Diabetes mellitus Obstructive sleep apnea Hypothyroidism Hypertension GERD (gastroesophageal reflux disease) Diabetes Hirsutism Varicose veins with pain Restless leg syndrome Congenital pulmonary arteriovenous malformation Urinary retention Epicondylitis, lateral Interstitial cystitis Spinal stenosis of lumbar region Chronic pain syndrome Disc degeneration, lumbar Spondylosis, lumbar, with myelopathy Morbid obesity due to excess calories Arthritis Fibromyalgia Migraines Hypothyroid Restrictive lung disease Allergic rhinitis AISHWARYA on CPAP Surgical History Hx of spinal surgery Hx of cystoscopy Hx of colonoscopy History of esophagogastroduodenoscopy (EGD) Family History Father Alcoholism Mother Leukemia Maternal Aunt Breast cancer Sister Depression Vertigo Family/Other Heart problem Diabetes Cancer Brother Atherosclerotic cardiovascular disease Cardiomegaly Social History Household Members: Family Household Members Other:: niece Housing: Apartment Are you a primary long term care phlebotomist to a significant other at home: No Do you presently have visiting nurse or other home services: No 75 years or older and lives alone: No Alcohol intake: never Comment: NONE Patient Tobacco Use Status: Never used Tobacco Second Hand Smoke Exposure: No Substance Use Type: Marijuana service: No Current occupational status: disabled 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 Review of Systems Const All systems reviewed & are unremarkable except as noted in HPI and below Physical Exam Const General: cooperative and no acute distress Orientation/consciousness: patient oriented x3 Resp Effort & Inspection: normal respiratory effort, able to speak in complete sentences and no audible wheezes Neuro General: patient oriented x3 Psych Mental Status: mental status grossly normal Speech and movement: Clear speech present Attitude: cooperative Thought process: Normal thought process present Thought content: Normal thought content present Insight: Good insight present (Psych) Judgement: Good judgement present (Psych) Telehealth Telehealth Location of provider rendering services: practice address Location of patient: address on file Patient Identification confirmed using: Name, : Yes Telehealth method: voice only Patient verbally consented to treatment: Yes Patient verbally consented to billing insurance company: Yes Patient informed of any privacy concerns related to visit: Yes Assessment & Plan Assessment & Plan (1) Obstructive sleep apnea: Comment: on Bipap Code(s): G47.33 - Obstructive sleep apnea (adult) (pediatric) Category: Medical (2) Nocturnal hypoxemia: Code(s): G47.34 - Idiopathic sleep related nonobstructive alveolar hypoventilation Category: Medical (3) Daytime somnolence: Code(s): R40.0 - Somnolence Category: Medical Plan Reviewed PSG which revealed mild AISHWARYA AHI 7.3 with nocturnal hypoxemia, for 88 minutes, lowest 73%. Recommendations made for in lab titration study to be performed to obtain optimal pressures. Will enter this. At this time patient reports good control of respiratory symptoms, advised to continue current regimen. All questions were answered and patient is in agreement of plan. Will follow up to review results or sooner if needed. Orders: Orders RT PSG in-lab sleep titration Today G47.33 - Obstructive sleep apnea (adult) (pediatric), G47.34 - Idiopathic sleep related nonobstructive alveolar hypoventilation Coding Level of Care Code Tele Est Pt Level 3 (45553) Diagnoses Obstructive sleep apnea G47.33 Nocturnal hypoxemia G47.34 Daytime somnolence R40.0 Time Spent (min) 10
== END 2023-09-17 15:48 | disposition home or self-care (01) ==
LOC: HO.HPS 15:44
PROVIDERS: PCP Family Medicine; Visit Provider Nurse Practitioner Family
DX: G47.33 Obstructive sleep apnea (adult) (pediatric) (principal); G47.34 Idiopathic sleep related nonobstructive alveolar hypoventilation; R40.0 Somnolence
CPT/HCPCS: 99441

== ENCOUNTER → 2023-09-17 15:44 | Outpatient (BNVA) | payer OTHER, SELFPAY | PROVIDERS: PCP Family Medicine; Visit Provider Nurse Practitioner Family | DX: R06.00 Dyspnea, unspecified (principal) ==

== ENCOUNTER → 2023-09-24 13:27 | Outpatient (BNVA) | payer OTHER, SELFPAY | PROVIDERS: PCP Family Medicine; Visit Provider Urology | DX: N30.10 Interstitial cystitis (chronic) without hematuria (principal); N39.46 Mixed incontinence; R33.9 Retention of urine, unspecified | CPT/HCPCS: 51798 ==

== ENCOUNTER → 2023-09-28 20:30 | Outpatient (REF) | payer OTHER, SELFPAY | LOC: HO.SL 20:30 | PROVIDERS: PCP Family Medicine; Visit Provider Nurse Practitioner Family | DX: Z13.89 Encounter for screening for other disorder (principal) ==

== ENCOUNTER → 2023-09-28 23:04 | Outpatient (BNV) | payer OTHER, SELFPAY | PROVIDERS: Visit Provider Internal Medicine | DX: G47.33 Obstructive sleep apnea (adult) (pediatric) (principal) | CPT/HCPCS: 95811 ==

== ENCOUNTER 2023-10-09 06:58 | Day surgery (SDC) | payer OTHER, SELFPAY ==
[2023-10-09 07:16] LABS: Glucose, Whole Blood 125 mg/dL (60-115)
[2023-10-09 07:19] VITALS: BP 158/97; PULSE 97; RESP 18; TEMP 36.6; O2SAT 97; BMI 52.7
--- NOTE | 2023-10-09 07:34 | MHC.SHP ---
Pre-Procedural Eval Section A - 24 Hr Update-Section A only Date of Service: 10/09/23 Section B - Complete if H&P > 30 days Chief Complaint: Family history of malignant neoplasm of digestive Details of Present Illness: diarrhea and abdominal pain-sister CRC Relevant Family History (Specify if Yes): Yes Relevant Social History: None Present Medications: see Short Stay Collaborative assessment Medical History: Significant History (Diabetes Hirsutism Varicose veins with pain Restless leg syndrome Congenital pulmonary arteriovenous malformation Urinary retention Epicondylitis, lateral Interstitial cystitis Spinal stenosis of lumbar region Chronic pain syndrome Disc degeneration, lumbar Spondylosis, lumbar, with myelopathy Morbi) History of Previous Operations: Relevant previous surgery/procedure and date(s) (Hx of spinal surgery Hx of cystoscopy Hx of colonoscopy History of esophagogastroduodenoscopy (EGD)) Allergies: Allergies Allergy/AdvReac Type Severity Reaction Status Date / Time cefuroxime [From CEFTIN] Allergy Severe HIVES Verified 09/07/23 14:30 Review of Systems Sugical H&P ROS: Negative: Constitution, Cardiovascular, Respiratory, Neurological, Psychiatric, Hem-Onc, Allergic/Immunologic, Gastrointestinal, Genitourinary, Musculoskeletal, Integumentary, Endocrine and Eyes/Ears/Nose/Throat Exam Surgical H&P Exam: Normal: HEENT, Normal: Heart, Normal: Lungs, Normal: Extremities, Normal: Abdomen, Normal: Skin and Normal: Neurological Plan Diagnosis/Plan: Unchanged I have reviewed the history and physical and performed a pertinent physical examination on my patient. No changes have occurred unless specified. Time Spent With Patient Time: Total time managing care of this patient today ____ minutes.
[2023-10-09 07:38] LABS: UPreg QC Valid YES; Urine Pregnancy NEGATIVE (NEGATIVE)
[2023-10-09] MEDS: Lactated Ringers 1,000 ML 50 ML IVCONT (07:44)
--- NOTE | 2023-10-09 09:30 | P.OPN-COLO_ITS ---
Colonoscopy Operative Note Operative Note Date of Service: 10/09/23 Narrative: Operative Information Procedure Description: Colonoscopy Indication: abdominal pain Anesthesia: MAC COLONOSCOPY Instrument: Olympus variable stiffness pediatric scope 190L Colonoscopy Monitoring: Vital signs and clinical assessment, continuous EKG monitoring, Pulse oximetry, Carbon Dioxide monitoring and blood pressure monitoring were done throughout the procedure. Colon withdrawal time was 18 minutes. Procedure: The patient was placed in the left lateral decubitis position and pre-procedure medications were administered. After a digital rectal examination of the ano-rectum, the video colonoscope was inserted into the rectum and advanced through the colon to the cecum/TI. The colonoscope was slowly withdrawn in a retrograde panoramic fashion and the colon mucosa was carefully examined including a retroflexed view of the rectum. Findings and interventions are described below. Procedure Difficulty: moderate due to looping Findings: Terminal Ileum- unable to intubate due to looping Random colon bx taken Cecum:normal Ascending Colon: x 2 sessile polyps 10-12 mm removed with cold snare, mild diiverticulosis Transverse Colon -normal Descending Colon:normal Sigmoid Colon: mild diverticulosis Rectum: Retroflexion with small internal hemorrhoids seen, grade I Anorectum - normal Intervention: cold snare, cold forceps Colon preparation: [place] Bowel Preparation Scale Right colon; 1-2 Transverse colon: 2- Left colon; 2 (0 = Unprepared colon segment with mucosa not seen due to solid stool that cannot be cleared. 1 = Portion of mucosa of the colon segment seen, but other areas of the colon segment not well seen due to staining, residual stool and/or opaque liquid. 2 = Minor amount of residual staining, small fragments of stool and/or opaque liquid, but mucosa of colon segment seen well. 3 = Entire mucosa of colon segment seen well with no residual staining, small fragments of stool or opaque liquid) Impression and Post Procedure Diagnosis: diverticulosis colon polyps internal hemorrhoids Plan: High fiber diet leaflet Avoid straining at stool, epsom salts and sitz bath, anusol supps or cream Repeat Colonoscopy in 1-2 years due to polyps and fair prep on right or earlier if clinically indicated If neg bx and ongoing sx then consider EGD and CTe Above findings were reviewed with the patient and relevant handouts were provided if indicated.
--- NOTE | 2023-10-09 09:30 | HO.ANESPROP2 ---
HPI - Anesthesia Eval Consult details Narrative: 48 yo female patient for Colonoscopy Anesthesia Pre-Procedure Meds Is the patient on any of the following meds?: GLP1/DPP4 (Last dose dulaglutide 10/01/23) and SGLT2 Inhib (Last dose jardiance 10/05/23) If yes to any meds - educate patient: Pt education - increased risk of aspiration and/or euvolemic DKA PMFSH Active Problems Active Problems: All Active Problems (Updated 10/09/23 @ 08:56 by Elaina Aguirre MD) Nocturnal hypoxemia (Acute) Pancreatitis (Acute) Sacroiliac joint dysfunction of right side (Acute) Morning headache (Acute) Daytime somnolence (Acute) Family history of colon cancer (Acute) Dyspnea (Acute) Lumbar radiculopathy (Acute) Greater trochanteric bursitis of left hip (Acute) Greater trochanteric bursitis of right hip (Acute) Proteinuria (Acute) Fungal infection of skin of abdomen (Acute) Urinary frequency (Acute) Spondylosis of lumbar region without myelopathy or radiculopathy (Acute) Patellofemoral arthralgia of right knee (Acute) Mixed incontinence urge and stress (Acute) Hemorrhoids (Acute) Patellofemoral arthralgia of both knees (Acute) Urinary retention (Acute) Left lateral epicondylitis (Acute) Left forearm pain (Acute) Nocturia more than twice per night (Acute) Obstructive sleep apnea (Acute) Morbidly obese (Acute) Nausea and vomiting (Acute) Irritable bowel syndrome with diarrhea (Acute) Gastroparesis (Acute) Urinary retention (Acute) Epicondylitis, lateral (Acute) Interstitial cystitis (Acute) Spinal stenosis of lumbar region (Acute) Chronic pain syndrome (Acute) Disc degeneration, lumbar (Acute) Spondylosis, lumbar, with myelopathy (Acute) Restrictive lung disease (Acute) Allergic rhinitis (Acute) AISHWARYA on CPAP (Acute) Past Medical History Medical History Pre-op examination Asthma Diabetes mellitus Obstructive sleep apnea Hypothyroidism Hypertension GERD (gastroesophageal reflux disease) Diabetes Hirsutism Varicose veins with pain Restless leg syndrome Congenital pulmonary arteriovenous malformation Urinary retention Epicondylitis, lateral Interstitial cystitis Spinal stenosis of lumbar region Chronic pain syndrome Disc degeneration, lumbar Spondylosis, lumbar, with myelopathy Morbid obesity due to excess calories Arthritis Fibromyalgia Migraines Hypothyroid Restrictive lung disease Allergic rhinitis AISHWARYA on CPAP Family History Family History Father Alcoholism Mother Leukemia Maternal Aunt Breast cancer Sister Depression Vertigo Family/Other Heart problem Diabetes Cancer Brother Atherosclerotic cardiovascular disease Cardiomegaly Family history of problems with anesthesia: No Surgical History Surgical History Hx of spinal surgery Hx of cystoscopy Hx of colonoscopy History of esophagogastroduodenoscopy (EGD) History of Problems with Anesthesia: No Social History Social History Household Members: Family Household Members Other:: niece Housing: Apartment Are you a primary child care associate teacher to a significant other at home: No Do you presently have visiting nurse or other home services: No Alcohol intake: never Comment: NONE Patient Tobacco Use Status: Never used Tobacco Second Hand Smoke Exposure: No Substance Use Type: Marijuana Are you DNR?: No Advance Directives: No Advance Directives Information Provided: Yes service: No Current occupational status: disabled 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 Meds Allergies Allergy/AdvReac Type Severity Reaction Status Date / Time cefuroxime [From CEFTIN] Allergy Severe HIVES Verified 09/07/23 14:30 Active Medications: Current Medications Lactated Ringer's (Lr) 1,000 mls @ 50 mls/hr IVCONT .Q20H DAVID Last Admin: 10/09/23 07:44 Dose: 50 mls/hr Home Medications ?Medication ?Instructions ?Recorded ?Confirmed ?Last Taken ?Type hydrochlorothiazide 25 mg tablet 25 mg PO QAM 03/02/20 08/01/23 02/04/23 History montelukast 10 mg tablet 10 mg PO BEDTIME 03/02/20 08/01/23 02/04/23 History polyvinyl alcohol 1.4 % eye drops 1 drp ophthalmic (eye) QID PRN Dry 10/08/20 08/01/23 Unknown History Eyes zolpidem 10 mg tablet 10 mg PO BEDTIME PRN Insomnia 10/08/20 08/01/23 02/04/23 History blood pressure test kit-large #1 ea 08/02/21 08/01/23 Unknown History lanolin alcohols-mineral 1 appl topical BID PRN Rash 08/02/21 08/01/23 Unknown History oil-w.petrolatum-ceresin topical cream (Minerin Creme topical) losartan 100 mg tablet 100 mg PO DAILY 08/02/21 08/01/23 02/04/23 History mineral oil-hydrophil petrolat 1 appl topical DAILY 08/02/21 08/01/23 Unknown History topical ointment (petrolatum topical ointment) cyclobenzaprine 10 mg tablet 10 mg PO BEDTIME 03/07/22 08/01/23 02/04/23 History verapamil 240 mg 24 hr 240 mg PO DAILY 03/07/22 08/01/23 02/04/23 History capsule,extended release blood sugar diagnostic (FreeStyle #10 ea 04/19/22 08/01/23 Unknown History Lite Strips) blood-glucose meter (FreeStyle #1 ea 04/19/22 08/01/23 Unknown History Amity Lite kit) lancets 33 gauge (TRUEplus Lancets) #100 ea 04/19/22 08/01/23 Unknown History levothyroxine 200 mcg tablet 200 mcg PO QAM 04/19/22 08/01/23 02/04/23 History levothyroxine 75 mcg tablet 75 mcg PO DAILY 04/19/22 08/01/23 02/04/23 History acetaminophen 650 mg 650 mg PO BID 05/10/22 08/01/23 Unknown History tablet,extended release naloxone 4 mg/actuation nasal 1 spray intranasal Q2M PRN Opiate 05/10/22 08/01/23 Unknown History spray (Narcan) Reversal cholecalciferol (vitamin D3) 50 50 mcg PO QPM 06/29/22 08/01/23 02/04/23 History mcg (2,000 unit) capsule (Vitamin D3) empagliflozin 10 mg tablet 10 mg PO QAM 06/29/22 08/01/23 10/05/23 History (Jardiance) tramadol 50 mg tablet 50 mg PO Q6H PRN pain 06/29/22 08/01/23 02/03/23 History dulaglutide 0.75 mg/0.5 mL 0.75 mg subcut QWEEK 07/27/22 08/01/23 10/01/23 History subcutaneous pen injector (Trulicity) hydralazine 100 mg tablet 100 mg PO BID 07/27/22 08/01/23 02/04/23 History clonazepam 0.5 mg tablet 0.5 mg PO TID PRN Anxiety 03/14/23 08/01/23 Unknown History diclofenac sodium 1 % topical gel 1 ea topical BID 06/19/23 08/01/23 Unknown History ergocalciferol (vitamin D2) 1,250 1,250 mcg PO QWEEK 06/19/23 08/01/23 Unknown History mcg (50,000 unit) capsule gabapentin 600 mg tablet 600 mg PO TID 06/19/23 08/01/23 Unknown History loratadine 10 mg tablet 10 mg PO DAILY 06/19/23 08/01/23 Unknown History escitalopram oxalate 20 mg tablet 20 mg PO BEDTIME 06/28/23 08/01/23 Unknown History mometasone 100 mcg/actuation HFA 2 puff inhalation BID 06/28/23 08/01/23 Unknown History aerosol inhaler (Asmanex HFA) nystatin 100,000 unit/gram topical 1 appl topical BID-TID 06/28/23 08/01/23 Unknown History powder tizanidine 2 mg tablet 2 mg PO TID PRN muscle spasm 06/28/23 08/01/23 Unknown History furosemide 20 mg tablet 20 mg PO DAILY 08/28/23 Unknown History ibuprofen 800 mg tablet 800 mg PO TID 08/28/23 Unknown History triamcinolone acetonide 55 mcg intranasal 08/28/23 Unknown History nasal spray aerosol Exam Height,Weight and Vital Signs: Height 5 ft 1 in Weight 126.507 kg Last Vital Signs Temp 98 F 10/09/23 07:19 Pulse 97 10/09/23 07:19 Resp 18 10/09/23 07:19 BP 158/97 H 10/09/23 07:19 Pulse Ox 97 10/09/23 07:19 O2 Del Method Room Air 10/09/23 07:19 Pertinent Lab Results Pertinent Lab Results: Laboratory Tests 10/09/23 10/09/23 07:11 Unknown POC Glucose 125 H Urine Test NEGATIVE Airway Mallampati Class: III TM Dist: >3cm Neck ROM: Full Loose/Missing/Broken Teeth: No (Denies broken, loose, missing teeth) Heart: RRR Lungs: CTAB Assessment and Plan Assessment Anesthesia Assessment: Anesthesia Plan Discussed and Chart Reviewed Final Anesthetic Review Family History of Problems with Anesthesia: No History of Problems with Anesthesia: No NPO: Yes ASA Class: III Final Preanesthetic Review: No Changes in Pt Med Stat, Meds/Allgs Chart Reviewed, Consent Obtained/Reviewed and Anes Risks/Benef Reviewed Patient Risk: Intermediate Procedure Risk: Low Assessment/Block/Sedation in SS: Assess/Block/Sedation-SS Anesthetic Plan Anesthetic Plan: GA and TIVA Disposition: Standard PACU
[2023-10-09 09:37] VITALS: BP 130/67; PULSE 69; RESP 25; TEMP 36.4; O2SAT 93
[2023-10-09 09:52] VITALS: BP 138/97; PULSE 41; RESP 16; TEMP 36.4; O2SAT 99
== END 2023-10-09 11:20 | disposition home or self-care (01) ==
PROVIDERS: Internal Medicine; PCP Family Medicine; Visit Provider Internal Medicine Gastroenterology
PROC: 0DJD8ZZ Inspection of Lower Intestinal Tract, Via Natural or Artificial Opening Endoscopic (ICD-10-PCS; CPT 45378; principal; 2023-10-09 09:10)
DX: R10.9 Unspecified abdominal pain (principal); Z80.0 Family history of malignant neoplasm of digestive organs; D12.2 Benign neoplasm of ascending colon; K57.30 Diverticulosis of large intestine without perforation or abscess without bleeding; K64.0 First degree hemorrhoids; K58.0 Irritable bowel syndrome with diarrhea; K31.84 Gastroparesis; K85.90 Acute pancreatitis without necrosis or infection, unspecified; K21.9 Gastro-esophageal reflux disease without esophagitis; G47.33 Obstructive sleep apnea (adult) (pediatric); G89.4 Chronic pain syndrome; J45.909 Unspecified asthma, uncomplicated; I10 Essential (primary) hypertension; M79.7 Fibromyalgia; L68.0 Hirsutism; E11.9 Type 2 diabetes mellitus without complications; J98.4 Other disorders of lung; F41.1 Generalized anxiety disorder; Z79.85 Long-term (current) use of injectable non-insulin antidiabetic drugs; Z79.899 Other long term (current) drug therapy; Z88.8 Allergy status to other drugs, medicaments and biological substances; Z98.890 Other specified postprocedural states
CPT/HCPCS: 45385; 45380; 81025; 82947; 88305; J2704; J2765

== ENCOUNTER → 2023-10-09 06:58 | Outpatient (BNV) | payer OTHER, SELFPAY | PROVIDERS: PCP Family Medicine; Visit Provider Internal Medicine Gastroenterology | DX: R10.9 Unspecified abdominal pain (principal); K57.90 Diverticulosis of intestine, part unspecified, without perforation or abscess without bleeding; K64.0 First degree hemorrhoids; D12.2 Benign neoplasm of ascending colon | CPT/HCPCS: 45380; 45385 ==

== ENCOUNTER 2023-10-23 11:52 | Outpatient (AMB) | payer OTHER, SELFPAY ==
--- NOTE | 2023-10-23 11:55 | MHC.OFFVIS ---
Vital Signs 10/23/23 11:56 Height 5 ft 1 in Weight 278 lb BMI 52.5 BP 137/63 Blood Pressure Location Lt brachial Position Sitting Pulse 83 Intake Visit Reasons: S/p colon Intake Note: Patient follow up for Colonoscopy results. Patient cc: Nauseas with food, frequently abdominal pain with bloating, hearburn, between diarrhea and constipation, denies any other GI issues. School Based Therapist Required: No Accompanied by: Self / Same As Patient Allergies cefuroxime [From CEFTIN] Allergy (Severe, Verified 10/23/23 11:54) HIVES HPI HPI S/p colon: Details: Assessment & Plan (1) Irritable bowel syndrome with diarrhea: Code(s): K58.0 - Irritable bowel syndrome with diarrhea Category: Medical (2) Gastroparesis: Code(s): K31.84 - Gastroparesis Category: Medical (3) Pancreatitis: Code(s): K85.90 - Acute pancreatitis without necrosis or infection, unspecified Category: Medical Plan Pt has been on Eluxadoline (Viberzi) intermittently for the past year which is associated with a risk of pancreatitis and sphincter of Oddi spasm - Most cases of pancreatitis related to Viberzi were within a week of starting treatment She has not had a return of the pain since stopping the Viberzi. However, it should be noted if the pain returns that she is also on Trulicity and hydrochlorothiazide which can also be triggers for pancreatitis. She is overdue for screening colonoscopy.It is scheduled for October. Her anxiety has been much worse and she will be going to [place] again to get away from her immediate family. Her [facility] providers are not helping her with filling out her paperwork to get housing for herself to live away from her family in this area. She is having more diarrhea lately and we will increase the loronex from 0.5mg bid to 1mg bid. She continues on Creon, metoclopramide, pantoprazole 40 mg twice a day. Keep 10/22 appt after procedure. Medications: New alosetron (Lotronex) 1 mg PO BID 60 tabs 6RF K58.0 - Irritable bowel syndrome with diarrhea Changed From metoclopramide HCl 10 mg PO TIDAC To metoclopramide HCl 10mg qac tid and 20mg qhs orally 3 times a day before meals; 150 tabs 6RF Refilled pantoprazole 40 mg PO BID 180 tabs 6RF K21.9 - Gastro-esophageal reflux disease without esophagitis [id number] 24,000-76,000 -120,000 unit (Creon) 2 caps PO QID 240 caps 6RF Discontinued alosetron (Lotronex) Discontinued Reason: Doctor's Order 0.5 mg PO BID 60 tabs 6RF K58.0 - Irritable bowel syndrome with diarrhea COLONOSCOPY 10/09/23 Findings: Terminal Ileum- unable to intubate due to looping Random colon bx taken Cecum:normal Ascending Colon: x 2 sessile polyps 10-12 mm removed with cold snare, mild diiverticulosis Transverse Colon -normal Descending Colon:normal Sigmoid Colon: mild diverticulosis Rectum: Retroflexion with small internal hemorrhoids seen, grade I Anorectum - normal Intervention: cold snare, cold forceps Impression and Post Procedure Diagnosis: diverticulosis colon polyps internal hemorrhoids Plan: High fiber diet leaflet Avoid straining at stool, epsom salts and sitz bath, anusol supps or cream Repeat Colonoscopy in 1-2 years due to polyps and fair prep on right or earlier if clinically indicated If neg bx and ongoing sx then consider EGD and CTe BIOPSY Received: 10/09/23 Diagnosis A. Colon, random, biopsy: Colonic mucosa with lymphoid aggregates and no specific change. B. Colon, ascending, polyps: Tubular adenomas, some with serrated features (multiple pieces); negative for high-grade dysplasia and carcinoma CORRESPONDENCE On 10/03/23 @ 22:31 CLARITA CUELLAR (Regarding Self / Same As Patient) Wrote To JonathonJuly I got it and understand it good thanks On 10/03/23 @ 14:19 Scarlett Andrews Wrote To Clarita Cuellar Kai Regan, Please see message below re: cramping from July. I am not sure what I can give her to stop this. She may need to drink strong peppermint tea or peppermint tincture or try [id number] IBD guard for the cramping since we pretty much maxed all of the medications for this. TODAY'S VISIT Pt has been on Eluxadoline (Viberzi) intermittently for the past year which is associated with a risk of pancreatitis and sphincter of Oddi spasm - Most cases of pancreatitis related to Viberzi were within a week of starting treatment She is agreeable to a 1-2 year follow up r/t size of polyps. The procedure was well tolerated. The results were explained and the patient is agreeable to the follow-up interval as stated. The bowel pattern has returned to normal. Education was provided to tell any 1st degree relatives about their findings to be sure that they are screened by age 45. Educated that they will be put on a recall list when it is time for their repeat scope but should they move out of state or away from the hospital they will need to remember along with their primary to repeat the procedure in a timely fashion to avoid any adverse complications. She has not been taking the Lotronex because she has been having normal bowel movements which is fine. She continues to have pain in her stomach which seems to start in the upper stomach and that time spread to lower stomach. When it is in the lower stomach she will have to move her bowels several times and this does give her some relief. The biggest problem is she has continued early satiety and nausea just about every day. Her metoclopramide does help somewhat, however she did not receive the message to take it 3 times a day and to take 2 at bedtime. Also she did not understand that she does not have to eat to take the medication I stressed that she should simply take it at breakfast time lunch time supper time to keep her stomach paced and moving appropriately. She will try to put this into action. However, after consideration I think were going to do to 10 mg metoclopramide 3 times a day whether she eats or not to see if we can pace her stomach better. If this does not do the trick we could consider an EGD but since the pain moves I do not think this is localized to the stomach I think it has more to do with over all peristalsis and motility of the GI system since the stomach isn't starting the process by emptying promptly. We may need to consider going a bit higher in her metoclopramide dosing because of BMI. Return office visit in 4 weeks to see how she is doing. [facility] Medical History (Updated 10/26/23 @ 09:01 by JOANNE Vazquez) Pre-op examination Asthma Diabetes mellitus Obstructive sleep apnea Hypothyroidism Hypertension GERD (gastroesophageal reflux disease) Diabetes Hirsutism Varicose veins with pain Restless leg syndrome Congenital pulmonary arteriovenous malformation Urinary retention Epicondylitis, lateral Interstitial cystitis Spinal stenosis of lumbar region Chronic pain syndrome Disc degeneration, lumbar Spondylosis, lumbar, with myelopathy Morbid obesity due to excess calories Arthritis Fibromyalgia Migraines Hypothyroid Restrictive lung disease Allergic rhinitis AISHWARYA on CPAP Surgical History (Updated 10/26/23 @ 09:01 by JOANNE Vazquez) Hx of spinal surgery Hx of cystoscopy Hx of colonoscopy History of esophagogastroduodenoscopy (EGD) Family History Father Alcoholism Mother Leukemia Maternal Aunt Breast cancer Sister Depression Vertigo Family/Other Heart problem Diabetes Cancer Brother Atherosclerotic cardiovascular disease Cardiomegaly Social History Household Members: Family Household Members Other:: niece Housing: Apartment Are you a primary regular senior care provider to a significant other at home: No Do you presently have visiting nurse or other home services: No 75 years or older and lives alone: No Alcohol intake: never Comment: NONE Patient Tobacco Use Status: Never used Tobacco Second Hand Smoke Exposure: No Substance Use Type: Marijuana service: No Current occupational status: disabled 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 Review of Systems Const Denies fatigue, Denies fever(s), Denies night sweats, Reports poor appetite and Denies weight loss ENT Reports Normal hearing present, Denies dental pain, Denies dysphagia, Denies hearing loss, Denies mouth pain, Denies odynophagia, Denies throat swelling, Denies tongue swelling and Reports other (Dentition adequate) Card Reports no additional complaints Resp Reports no additional complaints GI Details: Reports abdominal pain, Denies melena, Reports bloating, Denies hematochezia, Denies constipation, Denies GI cramping, Denies dysphagia, Denies excessive flatus, Reports early satiety, Reports heartburn, Denies diarrhea, Denies nausea, Denies odynophagia, Denies vomiting and Denies hematemesis Skin/Breast Denies pruritus, Denies lesions, Denies rash and Denies jaundice Neuro Reports Normal hearing present and Denies Abnormal speech present Psych Reports anxiety Endo Denies fatigue Aller/Immun Denies throat swelling and Denies tongue swelling Physical Exam Vital Signs: Last Vital Signs Pulse 83 10/23/23 11:56 BP 137/63 10/23/23 11:56 BMI result Body Mass Index 52.5 Const General: cooperative, no acute distress, well developed and well groomed Nutritional Appearance: well nourished and obese morbidly obese Orientation/consciousness: oriented to person, oriented to place and oriented to time Limitations: No language barrier and ambulation with walker HEENT Head: Yes normocephalic and Yes atraumatic Eyes General: appearance normal, both eyes and all related structures Pupils: Equal, round and reactive pupils present Neck Neck: Yes normal visual inspection and Yes no lymphadenopathy Thyroid: Thyroid normal Resp Effort & Inspection: normal respiratory effort and able to speak in complete sentences Auscultation: clear to auscultation bilaterally Cardio Rate: regular rate Rhythm: regular rhythm Heart sounds: Normal, physiologic split S2 sound present Peripheral pulses: radial pulses present and posterior tibial pulses present GI Inspection: No distended, Yes Abdominal panniculus present and Yes obesity Palpation (GI): Soft to palpation, nontender, no guarding, not rigid and No hepatosplenomegaly present Percussion: Yes normal to percussion Auscultation: normal bowel sounds Rectal Exam - Female: deferred Skin General skin exam: no rashes or lesions noted, turgor normal, skin not dry, no jaundice, No spider nevi and no striae Rashes: no rashes Nails: normal Neuro General: oriented to person, oriented to place and oriented to time Cranial nerves: Yes Equal, round and reactive pupils present and Yes Normal hearing present Speech: No Abnormal speech present Extrem General: Yes normal to inspection, No clubbing, No cyanosis and No edema Psych Appearance: grossly normal and well kempt Mental Status: mental status grossly normal Speech and movement: Normal speech and movement present Affect: normal affect Attitude: cooperative Thought process: Normal thought process present and not confabulating Thought content: Normal thought content present Insight: Limited insight present (Psych) Judgement: Limited judgement present (Psych) Assessment & Plan Assessment & Plan (1) Gastroparesis: Code(s): K31.84 - Gastroparesis Category: Medical (2) Family history of colon cancer: Comment: sister 2023 scope= poor prep in 1-2 years Code(s): Z80.0 - Family history of malignant neoplasm of digestive organs Category: Medical (3) Irritable bowel syndrome with diarrhea: Code(s): K58.0 - Irritable bowel syndrome with diarrhea Category: Medical (4) Pancreatitis: Code(s): K85.90 - Acute pancreatitis without necrosis or infection, unspecified Category: Medical (5) Tubular adenoma of colon: Comment: 2023 scope= poor prep in 1-2 years Code(s): D12.6 - Benign neoplasm of colon, unspecified Category: Medical Plan Pt has been on Eluxadoline (Viberzi) intermittently for the past year which is associated with a risk of pancreatitis and sphincter of Oddi spasm - Most cases of pancreatitis related to Viberzi were within a week of starting treatment She is agreeable to a 1-2 year follow up r/t size of polyps. The procedure was well tolerated. The results were explained and the patient is agreeable to the follow-up interval as stated. The bowel pattern has returned to normal. Education was provided to tell any 1st degree relatives about their findings to be sure that they are screened by age 45. Educated that they will be put on a recall list when it is time for their repeat scope but should they move out of state or away from the hospital they will need to remember along with their primary to repeat the procedure in a timely fashion to avoid any adverse complications. She has not been taking the Lotronex because she has been having normal bowel movements which is fine. She continues to have pain in her stomach which seems to start in the upper stomach and that time spread to lower stomach. When it is in the lower stomach she will have to move her bowels several times and this does give her some relief. The biggest problem is she has continued early satiety and nausea just about every day. Her metoclopramide does help somewhat, however she did not receive the message to take it 3 times a day and to take 2 at bedtime. Also she did not understand that she does not have to eat to take the medication I stressed that she should simply take it at breakfast time lunch time supper time to keep her stomach paced and moving appropriately. She will try to put this into action. However, after consideration I think were going to do to 10 mg metoclopramide 3 times a day whether she eats or not to see if we can pace her stomach better. If this does not do the trick we could consider an EGD but since the pain moves I do not think this is localized to the stomach I think it has more to do with over all peristalsis and motility of the GI system since the stomach isn't starting the process by emptying promptly. We may need to consider going a bit higher in her metoclopramide dosing because of BMI. Return office visit in 4 weeks to see how she is doing. Medications: New metoclopramide HCl (Reglan) 20 mg (2 x 10 mg) PO TID 60 tabs 3RF K31.84 - Gastroparesis Discontinued metoclopramide HCl Discontinued Reason: Doctor's Order 10mg qac tid and 20mg qhs orally 3 times a day before meals; 150 tabs 6RF Coding Level of Care Code Est Pt Level 3 (88794) Diagnoses Gastroparesis K31.84 Family history of colon cancer Z80.0 Irritable bowel syndrome with diarrhea K58.0 Pancreatitis K85.90 Tubular adenoma of colon D12.6
[2023-10-23 11:56] VITALS: BP 137/63; PULSE 83; BMI 52.5
== END 2023-10-23 12:40 | disposition home or self-care (01) ==
PROVIDERS: PCP Family Medicine; Visit Provider Nurse Practitioner
DX: K31.84 Gastroparesis (principal); Z80.0 Family history of malignant neoplasm of digestive organs; K58.0 Irritable bowel syndrome with diarrhea; K85.90 Acute pancreatitis without necrosis or infection, unspecified; D12.6 Benign neoplasm of colon, unspecified
CPT/HCPCS: 99213

== ENCOUNTER → 2023-10-23 11:52 | Outpatient (BNVA) | payer OTHER, SELFPAY | PROVIDERS: PCP Family Medicine; Visit Provider Nurse Practitioner | DX: K31.84 Gastroparesis (principal); K58.0 Irritable bowel syndrome with diarrhea; K85.90 Acute pancreatitis without necrosis or infection, unspecified; D12.6 Benign neoplasm of colon, unspecified; Z80.0 Family history of malignant neoplasm of digestive organs | CPT/HCPCS: 99212 ==

== ENCOUNTER 2023-11-05 10:40 | Outpatient (AMB) | payer OTHER, SELFPAY ==
--- NOTE | 2023-11-04 11:59 | MHC.OFFVIS ---
Vital Signs 11/05/23 10:45 Height 5 ft 1 in Weight 271 lb 2.697 oz BMI 51.2 BP 126/70 Blood Pressure Location Rt radial Position Sitting Pulse 100 Pulse Source Pulse Oximeter Pulse Oximetry (%) 98 Oxygen Delivery Method Room Air Intake Visit Reasons: Asthma Allergies cefuroxime [From CEFTIN] Allergy (Severe, Verified 11/05/23 10:48) HIVES HPI HPI Asthma: Details: Shereen is a pleasant 48 year old female, never smoker, with underlying asthma, morbid obesity and AISHWARYA on CPAP therapy. She has been using singulair, and Asmanex 100 mcg with good control of symptoms. Today she presents to review results of titration study performed on 10/08/23. She denies any visits to urgent care or hospitalizations since the last visit. [facility] Medical History (Updated 10/26/23 @ 09:01 by JOANNE Vazquez) Pre-op examination Asthma Diabetes mellitus Obstructive sleep apnea Hypothyroidism Hypertension GERD (gastroesophageal reflux disease) Diabetes Hirsutism Varicose veins with pain Restless leg syndrome Congenital pulmonary arteriovenous malformation Urinary retention Epicondylitis, lateral Interstitial cystitis Spinal stenosis of lumbar region Chronic pain syndrome Disc degeneration, lumbar Spondylosis, lumbar, with myelopathy Morbid obesity due to excess calories Arthritis Fibromyalgia Migraines Hypothyroid Restrictive lung disease Allergic rhinitis AISHWARYA on CPAP Surgical History (Updated 10/26/23 @ 09:01 by JOANNE Vazquez) Hx of spinal surgery Hx of cystoscopy Hx of colonoscopy History of esophagogastroduodenoscopy (EGD) Family History Father Alcoholism Mother Leukemia Maternal Aunt Breast cancer Sister Depression Vertigo Family/Other Heart problem Diabetes Cancer Brother Atherosclerotic cardiovascular disease Cardiomegaly Social History Household Members: Family Household Members Other:: niece Housing: Apartment Are you a primary pediatric acute care unit nurse to a significant other at home: No Do you presently have visiting nurse or other home services: No 75 years or older and lives alone: No Alcohol intake: never Comment: NONE Patient Tobacco Use Status: Never used Tobacco Second Hand Smoke Exposure: No Substance Use Type: Marijuana service: No Current occupational status: disabled 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 Review of Systems Const Denies chills, Denies excessive sweating, Denies fever(s), Denies headache(s) and Denies night sweats Eyes Denies dry eyes, Denies irritation and Denies itchy eyes ENT Reports Normal hearing present, Denies headache(s), Denies nasal congestion, Denies nasal discharge, Denies post nasal drip and Denies sore throat Card Denies chest pain, Denies chest pain at rest, Denies chest pain with activity, Denies claudication, Denies leg edema, Denies orthopnea and Denies paroxysmal nocturnal dyspnea Resp Denies chest congestion, Denies cough, Denies excessive phlegm production, Denies pain on inspiration, Denies pain with cough, Denies stridor and Denies wheezing Musc Denies myalgias Neuro Reports Normal hearing present and Denies headache(s) Endo Denies excessive sweating Abner/Lymph Denies lymphadenopathy Aller/Immun Denies itchy eyes, Denies seasonal rhinorrhea and Denies wheezing Physical Exam Vital Signs: Last Vital Signs Pulse 100 11/05/23 10:45 BP 126/70 11/05/23 10:45 Pulse Ox 98 11/05/23 10:45 Oxygen Delivery Method Room Air 11/05/23 10:45 BMI result Body Mass Index 51.2 Const General: cooperative, healthy appearing, comfortable, no acute distress, well developed and alert Nutritional Appearance: obese Orientation/consciousness: patient oriented x3 Limitations: no limitations HEENT Head: Yes normal to inspection, Yes normocephalic and Yes atraumatic Ears: hearing grossly normal bilaterally and external ears normal Eyes General: appearance normal, both eyes and all related structures Eyelids: Yes eyelids normal Sclerae: sclerae normal EOM: EOMs intact bilaterally Neck Neck: Yes normal visual inspection and Yes no lymphadenopathy Lymphatic: no lymphadenopathy noted Chest Chest palpation & inspection: normal inspection of the chest Resp Effort & Inspection: normal respiratory effort, able to speak in complete sentences, no audible wheezes, no cough, no stridor, not tachypneic, no tripod positioning and no use of accessory muscles Auscultation: clear to auscultation bilaterally Cardio Jugular venous distension: no JVD Rate: regular rate Rhythm: regular rhythm Skin Other: warm, dry General skin exam: no rashes or lesions noted Neuro General: patient oriented x3 Cranial nerves: Yes Normal hearing present Cognition (Neuro): normal cognition Gait exam (Neuro): Normal gait present Extrem General: Yes normal to inspection, Yes capillary refill normal, Yes no clubbing, cyanosis or edema and Yes no pedal edema Psych Appearance: grossly normal and well kempt Speech and movement: Normal speech and movement present and Clear speech present Affect: normal affect Attitude: cooperative Thought process: Normal thought process present Thought content: Normal thought content present Insight: Good insight present (Psych) Judgement: Good judgement present (Psych) Results Reviewed Results Reviewed: Assessment & Plan Assessment & Plan (1) Obstructive sleep apnea: Comment: on Bipap Code(s): G47.33 - Obstructive sleep apnea (adult) (pediatric) Category: Medical (2) Nocturnal hypoxemia: Code(s): G47.34 - Idiopathic sleep related nonobstructive alveolar hypoventilation Category: Medical (3) Daytime somnolence: Code(s): R40.0 - Somnolence Category: Medical Plan Reviewed in lab titration report which revealed resolution of apneas and hypoxemia with pressure at 13 on CPAP therapy. Will send revision order to [facility] as well as supply order. At this time patient reports good control of respiratory symptoms, advised to continue current regimen. All questions were answered and patient is in agreement of plan. Will follow up in 3 months or sooner if needed. Coding Level of Care Code Est Pt Level 3 (68723) Diagnoses Obstructive sleep apnea G47.33 Nocturnal hypoxemia G47.34 Daytime somnolence R40.0
[2023-11-05 10:45] VITALS: BP 126/70; PULSE 100; O2SAT 98; BMI 51.2
== END 2023-11-05 11:04 | disposition home or self-care (01) ==
PROVIDERS: PCP Family Medicine; Visit Provider Nurse Practitioner Family
DX: G47.33 Obstructive sleep apnea (adult) (pediatric) (principal); G47.34 Idiopathic sleep related nonobstructive alveolar hypoventilation; R40.0 Somnolence
CPT/HCPCS: 99213

== ENCOUNTER → 2023-11-05 10:40 | Outpatient (BNVA) | payer OTHER, SELFPAY | PROVIDERS: PCP Family Medicine; Visit Provider Nurse Practitioner Family | DX: M22.2X1 Patellofemoral disorders, right knee (principal); M22.2X2 Patellofemoral disorders, left knee; E11.9 Type 2 diabetes mellitus without complications; G47.33 Obstructive sleep apnea (adult) (pediatric); G47.34 Idiopathic sleep related nonobstructive alveolar hypoventilation; R40.0 Somnolence | CPT/HCPCS: 20610; 99212; J1010 ==

== ENCOUNTER 2023-11-05 12:04 | Outpatient (AMB) | payer OTHER, SELFPAY ==
--- NOTE | 2023-11-05 12:20 | A.OFFVIS_ITS ---
Intake Visit Reasons: OV - B/L knee OA, last inj 06/07/23 Intake Note: Shereen is a 47 year old female who present today for a follow up for her bilateral knee OA, DOI 06/07/23. Patient reports her last injections lasted her more than the 3 months. She is having more pain on the left knee than her right. Allergies cefuroxime [From CEFTIN] Allergy (Severe, Verified 11/05/23 10:48) HIVES HPI HPI OV - B/L knee OA, last inj 06/07/23: Details: 48-year-old female who presents in the office today for a follow-up of bilateral knee pain. I last saw the patient for an evaluation of her bilateral knees on 06/07/23 when she received a cortisone injection bilaterally. ? ? While in the office today, the patient reports her last cortisone injections gave her more than three months of relief. She states the left knee pain is greater than the right knee pain. ? ? Patient has a significant medical history of diabetes mellitus. [facility] Medical History (Updated 10/26/23 @ 09:01 by JOANNE Vazquez) Pre-op examination Asthma Diabetes mellitus Obstructive sleep apnea Hypothyroidism Hypertension GERD (gastroesophageal reflux disease) Diabetes Hirsutism Varicose veins with pain Restless leg syndrome Congenital pulmonary arteriovenous malformation Urinary retention Epicondylitis, lateral Interstitial cystitis Spinal stenosis of lumbar region Chronic pain syndrome Disc degeneration, lumbar Spondylosis, lumbar, with myelopathy Morbid obesity due to excess calories Arthritis Fibromyalgia Migraines Hypothyroid Restrictive lung disease Allergic rhinitis AISHWARYA on CPAP Surgical History (Updated 10/26/23 @ 09:01 by JOANNE Vazquez) Hx of spinal surgery Hx of cystoscopy Hx of colonoscopy History of esophagogastroduodenoscopy (EGD) Family History Father Alcoholism Mother Leukemia Maternal Aunt Breast cancer Sister Depression Vertigo Family/Other Heart problem Diabetes Cancer Brother Atherosclerotic cardiovascular disease Cardiomegaly Social History Household Members: Family Household Members Other:: niece Housing: Apartment Are you a primary technical healthcare consultant to a significant other at home: No Do you presently have visiting nurse or other home services: No 75 years or older and lives alone: No Alcohol intake: never Comment: NONE Patient Tobacco Use Status: Never used Tobacco Second Hand Smoke Exposure: No Substance Use Type: Marijuana service: No Current occupational status: disabled 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 Tenderness along the medial joint line. ROM full with crepitus. Negative Steinmans. No ligamentous laxity. NVI. Office Procedures Joint Injection/Aspiration Joint Injection/Aspiration Primary Site: right knee Secondary Site: left knee Prep: site was prepped using aseptic technique, ethochloride spray was applied and injection warnings given Injected: 40 mg of, DepoMedrol, with 8 mL of (2% plain lido ) and in the joint Approach Used: anterolateral Procedure: The patient tolerated the procedure well, but had some pain with the injection and there was some relief with the local anesthesia Coding 29403 - Large joint Procedure code (CPT) selection complete Assessment & Plan Assessment & Plan (1) Patellofemoral arthralgia of both knees: Code(s): M22.2X1 - Patellofemoral disorders, right knee; M22.2X2 - Patellofemoral disorders, left knee Category: Medical (2) Diabetes: Code(s): E11.9 - Type 2 diabetes mellitus without complications Plan Ms. Cuellar is a 48-year-old female who presents in the office today for a follow- up of bilateral knee pain. I last saw the patient for an evaluation of her bilateral knees on 06/07/23 when she received a cortisone injection bilaterally. ? ? While in the office today, the patient reports her last cortisone injections gave her more than three months of relief. She states the left knee pain is greater than the right knee pain. ? ? Patient has a significant medical history of diabetes mellitus.? ? The patient was offered a cortisone injection in the bilateral knees with 40 mg of Depo-Medrol. The patient was explained the risk, benefits, and alternatives to receiving this injection. After receiving consent for the injection, the patient had the procedure done while in the office today. The patient tolerated the procedure well with no complications.? ? Due to the patient?s history of diabetes, they were instructed to monitor her blood glucose level. The patient was informed that they could see a rise in their numbers and if the numbers became too high, they were instructed to call their PCP. The patient was also informed that they could have facial flushing as a side effect of the injection, but this will pass. ? ? Follow-up will be PRN, or sooner if needed.? Patient Instructions: Scribed by Lizette Mancilla medical anthropologist, for Isabella Rocha PA-C on 11/05/2023 at 12:24 pm, EST.? Coding Level of Care Code Est Pt Level 4 (19565) Diagnoses Patellofemoral arthralgia of both knees M22.2X1; M22.2X2 Diabetes E11.9 CPT Codes Coding - 97292 Large joint: 33200 - Large joint ([id number])
== END 2023-11-05 12:47 | disposition home or self-care (01) ==
PROVIDERS: PCP Family Medicine; Visit Provider Physician Assistant
DX: M22.2X1 Patellofemoral disorders, right knee (principal); M22.2X2 Patellofemoral disorders, left knee; E11.9 Type 2 diabetes mellitus without complications
CPT/HCPCS: 20610; 99214

== ENCOUNTER 2023-11-21 11:48 | Outpatient (AMB) | payer OTHER, SELFPAY ==
--- NOTE | 2023-11-21 11:49 | MHC.OFFVIS ---
Vital Signs 11/21/23 11:58 Height 5 ft 1 in Weight 266 lb 12.149 oz BMI 50.4 BP 189/95 H Blood Pressure Location Lt brachial Position Sitting Pulse 93 Intake Visit Reasons: 6 week follow up Intake Note: Patient is seen in office for 6 week follow up visit, follow up on meds. Pt c/o: for the past 2 days been experiencing abdominal pain, nausea and diarrhea, specially with greasy meals, no longer has a gallbladder, no other issues [employer] Mixer Mushroom Required: No Accompanied by: Self / Same As Patient Allergies cefuroxime [From CEFTIN] Allergy (Severe, Verified 11/21/23 12:00) HIVES HPI HPI 6 week follow up: Details: Assessment & Plan (1) Gastroparesis: Code(s): K31.84 - Gastroparesis Category: Medical (2) Family history of colon cancer: Comment: sister 2023 scope= poor prep in 1-2 years Code(s): Z80.0 - Family history of malignant neoplasm of digestive organs Category: Medical (3) Irritable bowel syndrome with diarrhea: Code(s): K58.0 - Irritable bowel syndrome with diarrhea Category: Medical (4) Pancreatitis: Code(s): K85.90 - Acute pancreatitis without necrosis or infection, unspecified Category: Medical (5) Tubular adenoma of colon: Comment: 2023 scope= poor prep in 1-2 years Code(s): D12.6 - Benign neoplasm of colon, unspecified Category: Medical Plan Pt has been on Eluxadoline (Viberzi) intermittently for the past year which is associated with a risk of pancreatitis and sphincter of Oddi spasm - Most cases of pancreatitis related to Viberzi were within a week of starting treatment She is agreeable to a 1-2 year follow up r/t size of polyps. The procedure was well tolerated. The results were explained and the patient is agreeable to the follow-up interval as stated. The bowel pattern has returned to normal. Education was provided to tell any 1st degree relatives about their findings to be sure that they are screened by age 45. Educated that they will be put on a recall list when it is time for their repeat scope but should they move out of state or away from the hospital they will need to remember along with their primary to repeat the procedure in a timely fashion to avoid any adverse complications. She has not been taking the Lotronex because she has been having normal bowel movements which is fine. She continues to have pain in her stomach which seems to start in the upper stomach and that time spread to lower stomach. When it is in the lower stomach she will have to move her bowels several times and this does give her some relief. The biggest problem is she has continued early satiety and nausea just about every day. Her metoclopramide does help somewhat, however she did not receive the message to take it 3 times a day and to take 2 at bedtime. Also she did not understand that she does not have to eat to take the medication I stressed that she should simply take it at breakfast time lunch time supper time to keep her stomach paced and moving appropriately. She will try to put this into action. However, after consideration I think were going to do to 10 mg metoclopramide 3 times a day whether she eats or not to see if we can pace her stomach better. If this does not do the trick we could consider an EGD but since the pain moves I do not think this is localized to the stomach I think it has more to do with over all peristalsis and motility of the GI system since the stomach isn't starting the process by emptying promptly. We may need to consider going a bit higher in her metoclopramide dosing because of BMI. Return office visit in 4 weeks to see how she is doing. Medications: New metoclopramide HCl (Reglan) 20 mg (2 x 10 mg) PO TID 60 tabs 3RF K31.84 - Gastroparesis Discontinued metoclopramide HCl Discontinued Reason: Doctor's Order 10mg qac tid and 20mg qhs orally 3 times a day before meals; 150 tabs 6RF TODAY'S VISIT She is doing generally well. Since the Lotronex 1 mg twice a day her bowel movements were normal except for 1 incidence of diarrhea where she had a fecal urgency and accident. This might be related to what she ate sometimes we just do not know but in general she is doing better. She has had some isolated incidents of severe nausea at night when she has taken extra Reglan. She has been tolerating the 20 mg 3 times a day dose well without any side effects. I think that we needed to give her a higher dose because of her body mass index. Will also give her an extra 20 mg she can take at night as needed. She continues to do well also on her other GI medications. Her total GI regimen consists of Lotronex 1 mg twice a day, famotidine 40 mg at night, Creon 2 caps twice a day, Reglan 20 mg 3 times a day and an extra 20 mg as needed at bedtime, pantoprazole 40 mg twice a day. Return office visit in 6 months [facility] Medical History (Updated 11/21/23 @ 17:31 by JOANNE Vazquez) Disc degeneration, lumbar Nausea and vomiting Left forearm pain Patellofemoral arthralgia of right knee Urinary frequency Fungal infection of skin of abdomen Greater trochanteric bursitis of right hip Greater trochanteric bursitis of left hip Family history of colon cancer Daytime somnolence Morning headache Pre-op examination Asthma Diabetes mellitus Obstructive sleep apnea Hypothyroidism Hypertension GERD (gastroesophageal reflux disease) Diabetes Hirsutism Varicose veins with pain Restless leg syndrome Congenital pulmonary arteriovenous malformation Urinary retention Epicondylitis, lateral Interstitial cystitis Spinal stenosis of lumbar region Chronic pain syndrome Spondylosis, lumbar, with myelopathy Morbid obesity due to excess calories Arthritis Fibromyalgia Migraines Hypothyroid Restrictive lung disease Allergic rhinitis AISHWARYA on CPAP Surgical History Hx of spinal surgery Hx of cystoscopy Hx of colonoscopy History of esophagogastroduodenoscopy (EGD) Family History Father Alcoholism Mother Leukemia Maternal Aunt Breast cancer Sister Depression Vertigo Family/Other Heart problem Diabetes Cancer Brother Atherosclerotic cardiovascular disease Cardiomegaly Social History Household Members: Family Household Members Other:: niece Housing: Apartment Are you a primary personal carer to a significant other at home: No Do you presently have visiting nurse or other home services: No 75 years or older and lives alone: No Alcohol intake: never Comment: NONE Patient Tobacco Use Status: Never used Tobacco Second Hand Smoke Exposure: No Substance Use Type: Marijuana service: No Current occupational status: disabled 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 Review of Systems Const Denies fatigue, Denies fever(s), Denies night sweats, Denies poor appetite and Reports weight loss (intentional dieting) Eyes Reports requires corrective lenses ENT Reports Normal hearing present, Denies dental pain, Denies dysphagia, Denies hearing loss, Denies mouth pain, Denies odynophagia, Denies throat swelling, Denies tongue swelling and Reports other (Dentition adequate) Card Reports no additional complaints Resp Reports no additional complaints GI Details: Denies abdominal pain, Denies melena, Reports bloating, Denies hematochezia, Reports constipation, Denies GI cramping, Denies dysphagia, Denies excessive flatus, Reports early satiety, Reports heartburn, Denies diarrhea, Reports nausea, Denies odynophagia, Denies vomiting and Denies hematemesis Musc Reports abnormal gait, Reports back pain and Reports arthralgias Skin/Breast Denies pruritus, Denies lesions, Denies rash and Denies jaundice Neuro Reports Normal hearing present, Denies Abnormal speech present and Reports abnormal gait Psych Reports anxiety Endo Denies fatigue Aller/Immun Denies throat swelling and Denies tongue swelling Physical Exam Vital Signs: Last Vital Signs Pulse 93 11/21/23 11:58 BP 189/95 H 11/21/23 11:58 BMI result Body Mass Index 50.4 Const General: cooperative, no acute distress, well developed and well groomed Nutritional Appearance: well nourished and obese Orientation/consciousness: oriented to person, oriented to place and oriented to time Limitations: No language barrier and ambulation with walker HEENT Head: Yes normocephalic and Yes atraumatic Eyes General: appearance normal, both eyes and all related structures Pupils: Equal, round and reactive pupils present Neck Neck: Yes normal visual inspection and Yes no lymphadenopathy Thyroid: Thyroid normal Resp Effort & Inspection: normal respiratory effort and able to speak in complete sentences Auscultation: clear to auscultation bilaterally Cardio Rate: regular rate Rhythm: regular rhythm Heart sounds: Normal, physiologic split S2 sound present Peripheral pulses: radial pulses present and posterior tibial pulses present GI Inspection: No distended, Yes Abdominal panniculus present and Yes obesity Palpation (GI): Soft to palpation, nontender, no guarding, not rigid and No hepatosplenomegaly present Percussion: Yes normal to percussion Auscultation: normal bowel sounds Rectal Exam - Female: deferred Skin General skin exam: no rashes or lesions noted, turgor normal, skin not dry, no jaundice, No spider nevi and no striae Rashes: no rashes Nails: normal Neuro General: oriented to person, oriented to place and oriented to time Cranial nerves: Yes Equal, round and reactive pupils present and Yes Normal hearing present Speech: No Abnormal speech present Extrem General: Yes normal to inspection, No clubbing, No cyanosis and No edema Psych Appearance: grossly normal and well kempt Mental Status: mental status grossly normal Speech and movement: Normal speech and movement present Affect: normal affect Attitude: cooperative Thought process: Normal thought process present and not confabulating Thought content: Normal thought content present Insight: Fair insight present (Psych) Judgement: Fair judgement present (Psych) Assessment & Plan Assessment & Plan (1) Irritable bowel syndrome with diarrhea: Code(s): K58.0 - Irritable bowel syndrome with diarrhea Category: Medical (2) Gastroparesis: Code(s): K31.84 - Gastroparesis Category: Medical (3) Pancreatitis: Code(s): K85.90 - Acute pancreatitis without necrosis or infection, unspecified Category: Medical Plan She is doing generally well. Since the Lotronex 1 mg twice a day her bowel movements were normal except for 1 incidence of diarrhea where she had a fecal urgency and accident. This might be related to what she ate sometimes we just do not know but in general she is doing better. She has had some isolated incidents of severe nausea at night when she has taken extra Reglan. She has been tolerating the 20 mg 3 times a day dose well without any side effects. I think that we needed to give her a higher dose because of her body mass index. Will also give her an extra 20 mg she can take at night as needed. She continues to do well also on her other GI medications. Her total GI regimen consists of Lotronex 1 mg twice a day, famotidine 40 mg at night, Creon 2 caps twice a day, Reglan 20 mg 3 times a day and an extra 20 mg as needed at bedtime, pantoprazole 40 mg twice a day. Return office visit in 6 months Medications: Changed From metoclopramide HCl (Reglan) 20 mg (2 x 10 mg) PO TID 60 tabs 3RF K31.84 - Gastroparesis To metoclopramide HCl (Reglan) 20 mg (2 x 10 mg) PO QID 120 tabs 6RF K31.84 - Gastroparesis Refilled pantoprazole 40 mg PO BID 180 tabs 6RF K21.9 - Gastro-esophageal reflux disease without esophagitis [id number] 24,000-76,000 -120,000 unit (Creon) 2 caps PO QID 240 caps 6RF famotidine 40 mg PO DAILY 30 tabs 6RF loperamide 4 mg (2 x 2 mg) PO BID 120 caps 6RF R11.2 - Nausea with vomiting, unspecified alosetron 1 mg PO BID 60 tabs 6RF K58.0 - Irritable bowel syndrome with diarrhea Coding Level of Care Code Est Pt Level 3 (79009) Diagnoses Irritable bowel syndrome with diarrhea K58.0 Gastroparesis K31.84 Pancreatitis K85.90
[2023-11-21 11:58] VITALS: BP 189/95; PULSE 93; BMI 50.4
== END 2023-11-21 12:28 | disposition home or self-care (01) ==
PROVIDERS: PCP Family Medicine; Visit Provider Nurse Practitioner
DX: K58.0 Irritable bowel syndrome with diarrhea (principal); K31.84 Gastroparesis; K85.90 Acute pancreatitis without necrosis or infection, unspecified
CPT/HCPCS: 99213

== ENCOUNTER → 2023-11-21 11:48 | Outpatient (BNVA) | payer OTHER, SELFPAY | PROVIDERS: PCP Family Medicine; Visit Provider Nurse Practitioner | DX: K31.84 Gastroparesis (principal); R10.9 Unspecified abdominal pain; R11.0 Nausea; R19.7 Diarrhea, unspecified; K85.90 Acute pancreatitis without necrosis or infection, unspecified; D12.6 Benign neoplasm of colon, unspecified; K58.0 Irritable bowel syndrome with diarrhea; Z80.0 Family history of malignant neoplasm of digestive organs; Z79.899 Other long term (current) drug therapy | CPT/HCPCS: 99212 ==

== ENCOUNTER 2023-12-11 13:03 | Outpatient (REF) | payer OTHER, SELFPAY ==
--- NOTE | ~2023-12-11 | XR_ITS ---
EXAMINATION: X-ray bilateral hips CLINICAL INFORMATION: Worsening pain COMPARISON: 06/15/2023 TECHNIQUE: Bilateral hips each 2 views FINDINGS: Left hip: Mild left hip joint space narrowing. Findings similar to previous. No acute fracture or dislocation. No abnormal soft tissue calcification. Right hip: Mild joint space narrowing. No acute fracture or dislocation. No abnormal soft tissue calcification. XR/XR hip LT min 2V IMPRESSION: Mild bilateral hip joint arthritis. Findings similar to previous. Electronically signed by: Matthew Whitmore MD 12/17/2023 01:03 PM EDT
--- NOTE | ~2023-12-11 | XR_ITS ---
EXAMINATION: X-ray bilateral hips CLINICAL INFORMATION: Worsening pain COMPARISON: 06/15/2023 TECHNIQUE: Bilateral hips each 2 views FINDINGS: Left hip: Mild left hip joint space narrowing. Findings similar to previous. No acute fracture or dislocation. No abnormal soft tissue calcification. Right hip: Mild joint space narrowing. No acute fracture or dislocation. No abnormal soft tissue calcification. XR/XR hip RT min 2V IMPRESSION: Mild bilateral hip joint arthritis. Findings similar to previous. Electronically signed by: Matthew Whitmore MD 12/17/2023 01:03 PM EDT
== END 2023-12-11 13:04 | disposition home or self-care (01) ==
LOC: HO.HHCX 13:03
PROVIDERS: Visit Provider Family Medicine
DX: M25.551 Pain in right hip (principal); M25.552 Pain in left hip
CPT/HCPCS: 73502

== ENCOUNTER 2023-12-13 13:23 | Outpatient (AMB) | payer OTHER, SELFPAY ==
--- NOTE | 2023-12-13 13:24 | A.OFFVIS_ITS ---
Vital Signs 12/13/23 13:31 Height 5 ft 1 in Weight 272 lb BMI 51.4 BP 140/98 H Blood Pressure Location Lt brachial Position Sitting Respiration 16 Pulse 77 Pulse Source Pulse Oximeter Pulse Oximetry (%) 98 Oxygen Delivery Method Room Air Intake Visit Reasons: Follow up to repeat back inj Intake Note: Patient comes in to discuss bilateral low back pain that radiates to bilateral hips. Allergies cefuroxime [From CEFTIN] Allergy (Severe, Verified 12/13/23 13:33) HIVES HPI Comments Details: Patient is a pleasant 48-year-old female presents today for follow-up for lower back pain and hip pain. Patient has been seen by Dr. Wright in this office and reports she has been getting therapeutic lumbar medial branch blocks every 3 months. Most recent therapeutic medial branch block L2, L3,L4 dorsal ramus L5 bilateral 06/21/22. Most recent lumbar spine MRI was completed at [facility] [[email or web address]] in 2021 and consistent with her today's reports of axial low back pain with bilateral radicular symptoms in the projection of L3-L4 distribution, worse on the left. Patient also reports low back pain with radiation into her right lower extremity posteriorly. Patient also has significant localized tenderness in the projection of bilateral sacroiliac joint area, worse on the right side. Patient reports bilateral hip pain and has completed hip x-rays today's ago, results pending. Back pain does not radiate below the knee level. Pain is easily exacerbated with most movements, especially with walking, prolonged standing, sitting or bending. Patient has been taking gabapentin 600 mg TID and tramadol 50 mg QID prn prescribed by PCP. Patient denies any fever or chills, abdominal pain, weakness, bladder or bowel dysfunction or saddle anesthesia. PRIOR Dr. Wright: Shereen is back in my office after the repeated therapeutic L3-L4 does ramus L5 medial branch block bilateral which was performed on 02/02/2023. She is 40 days after the procedure, she reports on going 90% pain improve, better mobility, better social interactions better activities of daily living. She reports that her blood pressure is elevated she states that issue with her apartment is reason her blood pressure is elevated. She is working on better situation with her housing. She was informed today that if she needs to perform yet another medial branch block she can be scheduled without coming for the appointment. She just need to give us a call sometime in the future to schedule the procedure provided it is more than 3 months from 02/02/2023. Prior: Shereen is very pleasant 46 years old female who is in my office under observation for long period of time.? She received in the past for the treatment of spondylosis of lumbar spine medial branch blocks L3-L4 does ramus L5 therapeutic with relatively good results few weeks of pain relief.? He also was receiving tizanidine 2. mg t.i.d [facility] Medical History Disc degeneration, lumbar Nausea and vomiting Left forearm pain Patellofemoral arthralgia of right knee Urinary frequency Fungal infection of skin of abdomen Greater trochanteric bursitis of right hip Greater trochanteric bursitis of left hip Family history of colon cancer Daytime somnolence Morning headache Pre-op examination Asthma Diabetes mellitus Obstructive sleep apnea Hypothyroidism Hypertension GERD (gastroesophageal reflux disease) Diabetes Hirsutism Varicose veins with pain Restless leg syndrome Congenital pulmonary arteriovenous malformation Urinary retention Epicondylitis, lateral Interstitial cystitis Spinal stenosis of lumbar region Chronic pain syndrome Spondylosis, lumbar, with myelopathy Morbid obesity due to excess calories Arthritis Fibromyalgia Migraines Hypothyroid Restrictive lung disease Allergic rhinitis AISHWARYA on CPAP Surgical History Hx of spinal surgery Hx of cystoscopy Hx of colonoscopy History of esophagogastroduodenoscopy (EGD) Family History Father Alcoholism Mother Leukemia Maternal Aunt Breast cancer Sister Depression Vertigo Family/Other Heart problem Diabetes Cancer Brother Atherosclerotic cardiovascular disease Cardiomegaly Social History Household Members: Family Household Members Other:: niece Housing: Apartment Are you a primary care companion to a significant other at home: No Do you presently have visiting nurse or other home services: No 75 years or older and lives alone: No Alcohol intake: never Comment: NONE Patient Tobacco Use Status: Never used Tobacco Second Hand Smoke Exposure: No Substance Use Type: Marijuana service: No Current occupational status: disabled 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 Review of Systems Const All systems reviewed & are unremarkable except as noted in HPI and below Physical Exam Vital Signs: Last Vital Signs Pulse 77 12/13/23 13:31 Resp 16 12/13/23 13:31 BP 140/98 H 12/13/23 13:31 Pulse Ox 98 12/13/23 13:31 Oxygen Delivery Method Room Air 12/13/23 13:31 BMI result Body Mass Index 51.4 Const General: cooperative, no acute distress and well developed Nutritional Appearance: well nourished and obese morbidly obese Orientation/consciousness: patient oriented x3 Limitations: No language barrier and ambulation with walker HEENT Head: Yes normocephalic and Yes atraumatic Eyes General: appearance normal, both eyes and all related structures Pupils: Equal, round and reactive pupils present Resp Effort & Inspection: normal respiratory effort, able to speak in complete sentences and no cough Auscultation: clear to auscultation bilaterally Cardio Jugular venous distension: no JVD Peripheral pulses: Peripheral pulses 2+ throughout GI Inspection: Yes Abdominal panniculus present and Yes obesity General: Yes no CVA tenderness Back/Spine/Pelvis Other: Limited lumbar ROM due to pain and body habitus. Moderate TTP in the projection of bilateral SIJ areas, right>left. Lumbar extension and flexion reproduce moderate pain. Back: no CVA tenderness Cervical Spine: cervical muscular tenderness and No Cervical spine tenderness Thoracic/Lumbar Spine: thoracic and lumbar spine normal to inspection, No thoraco-lumbar ROM normal, Lasegue's sign positive bilateral and diffuse, pain with thoraco-lumbar ROM, paraspinal muscle tenderness, thoraco-lumbar ROM limited, No thoracic spinal tenderness, lumbar spinal tenderness (L3-S1) and other (loading test is positive bilaterally) Sacroiliac joints: bilaterally (right>left) tender to palpation Neuro General: patient oriented x3 and gait normal Cranial nerves: Yes Equal, round and reactive pupils present Extrem General: Yes capillary refill normal, Yes no clubbing, cyanosis or edema and Yes no calf tenderness Psych Appearance: grossly normal Speech and movement: Normal speech and movement present Affect: normal affect Attitude: cooperative Results Reviewed Results Reviewed: CT/CT abdomen pelvis w IV con 06/28/23: OSSEOUS STRUCTURES: There is diffuse thoracolumbar disc degenerative change. There is a prominent posterior osteophyte at L3-L4 with moderate spinal canal narrowing. MR LUMBAR SPINE WITHOUT IV CONTRAST 07/25/21 CLINICAL INFORMATION: Dorsalgia. COMPARISON: Lumbar spine MRI 10/14/2019. Lumbar spine CT 01/06/2020. FINDINGS: Please note that there is transitional anatomy. As confirmed on the lumbar spine CT from 12/17/2019, there are hypoplastic ribs versus articulating transverse processes at the lowermost thoracic type segment and there are 5 nonrib-bearing lumbar-type vertebral bodies with partial sacralization of L5. Please correlate with plain films prior to any percutaneous or surgical intervention. There is grade 1 degenerative anterolisthesis of L4 on L5 and L5 on S1. Vertebral body heights are maintained. There is disc desiccation at all lumbar levels the exception of L1-L2. There is no bone marrow edema. There are no acute fractures. Mild disc volume loss at L3-L4. Conus terminates at the L1 level. L1-L2: Disc contour is normal. Moderate bilateral facet arthropathy. No central canal stenosis and no foraminal stenosis. L2-L3: Annular disc bulge and moderate bilateral facet arthropathy and ligamentum flavum thickening. No central canal stenosis. Mild foraminal encroachment bilaterally. L3-L4: There is a central disc protrusion that results in worsening moderate central canal stenosis. A right lateral disc osteophyte and facet arthropathy result in moderate right-sided foraminal stenosis with mild mass effect on the exiting right L3 nerve root that is unchanged. L4-L5: Grade 1 anterolisthesis with uncovered disc and severe bilateral facet arthropathy and ligamentum flavum thickening. No central canal stenosis. Mild foraminal encroachment bilaterally. Findings unchanged. L5-S1: Grade 1 anterolisthesis. Severe bilateral hypertrophic facet arthropathy. A far left lateral disc osteophyte protrusion results in compression of the extraforaminal left L5 nerve root, unchanged. IMPRESSION: - Please note that there is transitional anatomy. As confirmed on the lumbar spine CT from 12/17/2019, there are hypoplastic ribs versus articulating transverse processes at the lowermost thoracic type segment and there are 5 nonrib-bearing lumbar-type vertebral bodies with partial sacralization of L5. Please correlate with plain films prior to any percutaneous or surgical intervention. - At L3-L4, a central disc protrusion results in worsening moderate central canal stenosis and right lateral disc osteophyte and facet arthropathy result in similar moderate right-sided foraminal stenosis with mild mass effect on the exiting right L3 nerve root. - At L4-L5, there is grade 1 degenerative anterolisthesis in the setting of advanced bilateral hypertrophic facet arthropathy resulting in mild bilateral foraminal encroachment. - At L5-S1, there is grade 1 degenerative anterolisthesis in the setting of severe bilateral hypertrophic facet arthropathy. A far left lateral disc osteophyte protrusion results in compression of the extraforaminal left L5 nerve root, unchanged. Assessment & Plan Assessment & Plan (1) Lumbar radiculopathy: Code(s): M54.16 - Radiculopathy, lumbar region Category: Medical (2) Morbidly obese: Code(s): E66.01 - Morbid (severe) obesity due to excess calories Category: Medical (3) Spinal stenosis of lumbar region: Code(s): M48.061 - Spinal stenosis, lumbar region without neurogenic claudication Category: Medical (4) Chronic pain syndrome: Code(s): G89.4 - Chronic pain syndrome Category: Medical (5) Morbid obesity due to excess calories: Code(s): E66.01 - Morbid (severe) obesity due to excess calories Category: Medical (6) Disc degeneration, lumbar: Code(s): M51.36 - Other intervertebral disc degeneration, lumbar region Category: Medical (7) Spondylosis of lumbar region without myelopathy or radiculopathy: Code(s): M47.816 - Spondylosis without myelopathy or radiculopathy, lumbar region Category: Medical Plan Schedule Bilateral L3-L4 TFESI with sedation and fluoroscopy. Expectations, risks and benefits were reviewed. Patient is aware she will be contacted to schedule this procedure. She also has bilateral SIJ pain, worse on the right. Patient also reports bilateral hip pain with weight bearing with pending xray results. Spinal cord stimulation with Nevro was previously discussed with patient. Patient reports she is not able to go for SCS trial due to her current apartment situation. All questions and concerns have been answered and patient agreed with the treatment plan. Follow-up after injections and sooner as needed. Coding Level of Care Code Est Pt Level 4 (80150) Complex EM visit Add On G2211 Diagnoses Lumbar radiculopathy M54.16 Morbidly obese E66.01 Spinal stenosis of lumbar region M48.061 Chronic pain syndrome G89.4 Morbid obesity due to excess calories E66.01 Disc degeneration, lumbar M51.36 Spondylosis of lumbar region without myelopathy or radiculopathy M47.816
[2023-12-13 13:31] VITALS: BP 140/98; PULSE 77; RESP 16; O2SAT 98; BMI 51.4
== END 2023-12-13 14:13 | disposition home or self-care (01) ==
PROVIDERS: PCP Family Medicine; Visit Provider Nurse Practitioner Family
DX: M54.16 Radiculopathy, lumbar region (principal); E66.01 Morbid (severe) obesity due to excess calories; M48.061 Spinal stenosis, lumbar region without neurogenic claudication; G89.4 Chronic pain syndrome; M51.36 Other intervertebral disc degeneration, lumbar region; M47.816 Spondylosis without myelopathy or radiculopathy, lumbar region
CPT/HCPCS: 99214; G2211

== ENCOUNTER → 2023-12-13 13:23 | Outpatient (BNVA) | payer OTHER, SELFPAY | PROVIDERS: PCP Family Medicine; Visit Provider Nurse Practitioner Family | DX: M54.16 Radiculopathy, lumbar region (principal); M51.36 Other intervertebral disc degeneration, lumbar region; M47.816 Spondylosis without myelopathy or radiculopathy, lumbar region; M48.061 Spinal stenosis, lumbar region without neurogenic claudication; G89.4 Chronic pain syndrome; E66.01 Morbid (severe) obesity due to excess calories; Z68.43 Body mass index [BMI] 50.0-59.9, adult | CPT/HCPCS: 99212 ==

== ENCOUNTER 2024-01-03 14:51 | Outpatient (REF) | payer OTHER, SELFPAY ==
--- NOTE | 2024-01-03 14:55 | EMG_ITS ---
Chief complaint: Chronic back pain, denies numbness in feet Reason for referral: Evaluate for neuropathy versus radiculopathy Referred by: Dr. Parry Procedure done: Bilateral lower extremity NCS/EMG Precautions and/or limitations: None The limb temperature was monitored continuously and remained between 32-36 degrees C during the performance of the NCS. Nerve Conduction Studies Anti Sensory Summary Table ?Stim Site NR Onset (ms) Norm Onset (ms) Peak (ms) Norm Peak (ms) O-P Amp (?V) Norm O-P Amp Site1 Site2 Delta-0 (ms) Dist (cm) Jhonny (m/s) Norm Jhonny (m/s) Left Sural Anti Sensory (Lat Mall) Calf ? 2.1 3.2 <4.0 10.2 >5.0 Calf Lat Mall 2.1 14.0 67 Right Sural Anti Sensory (Lat Mall) Calf ? 2.5 3.3 <4.0 13.0 >5.0 Calf Lat Mall 2.5 14.0 56 Motor Summary Table ?Stim Site NR Onset (ms) Norm Onset (ms) O-P Amp (mV) Norm O-P Amp iAmp (mV) Amp (1st) (%) Site1 Site2 Delta-0 (ms) Dist (cm) Jhonny (m/s) Norm Jhonny (m/s) Right Peroneal Motor (Ext Dig Brev) Ankle ? 3.4 <4.0 8.8 >2.5 10.3 100.0 Ankle Ext Dig Brev 3.4 0.0 B Fib ? 9.1 8.4 9.9 95.5 B Fib Ankle 5.7 31.0 54 >40 Poplt ? 9.9 8.2 9.7 93.2 Poplt B Fib 0.8 4.0 50 >40 Left Tibial Motor (Abd Moore Brev) Ankle ? 3.8 <5 9.9 >2.5 12.7 100.0 Ankle Abd Moore Brev 3.8 0.0 Knee ? 9.8 12.6 16.7 127.3 Knee Ankle 6.0 32.0 53 >40 Right Tibial Motor (Abd Moore Brev) Ankle ? 3.4 <5 10.3 >2.5 15.2 100.0 Ankle Abd Moore Brev 3.4 0.0 Knee ? 9.7 7.4 10.4 71.8 Knee Ankle 6.3 38.0 60 >40 EMG ?Side Muscle Nerve Root Ins Act Fibs Psw Amp Dur Poly Recrt Int Pat Comment Right AbdHallucis MedPlantar S1-2 Nml Nml Nml Nml Nml 0 Nml Complete Right AntTibialis Dp Br Peron L4-5 Nml Nml Nml Nml Nml 0 Nml Complete Right PostTibialis Tibial L5, S1 Nml Nml Nml Nml Nml 0 Nml Complete Right MedGastroc Tibial S1-2 Nml Nml Nml Nml Nml 0 Nml Complete Right VastusMed Femoral L2-4 Nml Nml Nml Nml Nml 0 Nml Complete Left AbdHallucis MedPlantar S1-2 Nml Nml Nml Nml Nml 0 Nml Complete Left AntTibialis Dp Br Peron L4-5 Nml Nml Nml Nml Nml 0 Nml Complete Left PostTibialis Tibial L5, S1 Nml Nml Nml Nml Nml 0 Nml Complete Left MedGastroc Tibial S1-2 Nml Nml Nml Nml Nml 0 Nml Complete Left VastusMed Femoral L2-4 Nml Nml Nml Nml Nml 0 Nml Complete FINDINGS: All motor and sensory nerves tested showed normal latencies, amplitudes and conduction velocities. Concentric needle EMG was performed in selected muscles of the bilateral lower extremity. Study did not reveal signs of electric abnormalities as shown in the table above. IMPRESSION: 1. This is a normal study. 2. There is no electrodiagnostic evidence for peroneal neuropathy, tibial neuropathy, lumbosacral plexopathy, lumbar radiculopathy, or peripheral neuropathy. Thank you for your kind referral. Galina Walsh MD, LARISSA Board Certified, [place] [employer] and [employer] (ABPMR) Board Certified, [place] Board [employer] Electrodiagnostic [employer] (ABEM) CODIN 88096 x 2 MTDD
== END 2024-01-03 14:52 | disposition home or self-care (01) ==
LOC: HO.NEURO 14:51
PROVIDERS: Visit Provider Family Medicine
DX: M54.42 Lumbago with sciatica, left side (principal); M54.41 Lumbago with sciatica, right side
CPT/HCPCS: 95886; 95909

== ENCOUNTER → 2024-01-03 14:55 | Outpatient (BNV) | payer OTHER, SELFPAY | PROVIDERS: Visit Provider Physical Medicine & Rehabilitation | DX: M54.50 Low back pain, unspecified (principal) | CPT/HCPCS: 95886; 95909 ==

== ENCOUNTER 2024-01-31 17:33 | Inpatient (IN) | payer OTHER, SELFPAY ==
--- NOTE | 2024-01-31 17:45 | ED_ITS ---
HPI - General Adult General Chief complaint: General Medical Stated complaint: lightheaded Time Seen by Provider: 01/31/24 19:29 Source: patient Limitations: no limitations History of Present Illness ED Provider: Kimberly Lopez PA-C HPI narrative: 48-year-old female with a history of morbid obesity, chronic pain syndrome, depression, presents with depression. Patient indicates over the past 3 days she has just been in bed. She is not eating, she is unable to sleep, she has not showered. Denies SI or HI. Related Data Home Medications ?Medication ?Instructions ?Recorded ?Confirmed albuterol sulfate 90 mcg/actuation 2 puff inhalation Q4-6H PRN 01/31/24 01/31/24 aerosol inhaler (Ventolin HFA) wheezing clonazepam 0.5 mg tablet 0.5 mg PO TID PRN anxiety attack 01/31/24 01/31/24 empagliflozin 10 mg tablet 10 mg PO QAM 01/31/24 01/31/24 (Jardiance) famotidine 40 mg tablet 40 mg PO BEDTIME 01/31/24 01/31/24 gabapentin 600 mg tablet 600 mg PO TID 01/31/24 01/31/24 loratadine 10 mg tablet 10 mg PO QAM 01/31/24 01/31/24 ondansetron HCl 4 mg tablet 4 mg PO TID PRN nausea/vomiting 01/31/24 01/31/24 paroxetine HCl 30 mg tablet 30 mg PO QAM 01/31/24 01/31/24 solifenacin 5 mg tablet 10 mg PO QAM 01/31/24 01/31/24 tramadol 50 mg tablet 50 mg PO Q6H PRN severe pain 01/31/24 01/31/24 verapamil 240 mg 24 hr 240 mg PO QAM 01/31/24 01/31/24 capsule,extended release zolpidem 10 mg tablet 10 mg PO BEDTIME 01/31/24 01/31/24 Allergies Allergy/AdvReac Type Severity Reaction Status Date / Time cefuroxime [From CEFTIN] Allergy Severe HIVES Verified 01/31/24 17:49 Review of Systems 2 Review of Systems: Yes all other systems are reviewed and are negative Constitutional: Constitutional: Denies fatigue and Denies fever(s) Cardiovascular: Cardiovascular: Denies chest pain and Denies dyspnea Respiratory: Respiratory: Denies cough and Denies dyspnea Gastrointestinal: Gastrointestinal: Denies abdominal pain, Denies nausea and Denies vomiting Psychiatric: Psychiatric: Reports depression Endocrine: Endocrine: Denies fatigue PMFSH Past Medical History Attestation statement: The following information was validated with the patient. Medical History Disc degeneration, lumbar Nausea and vomiting Left forearm pain Patellofemoral arthralgia of right knee Urinary frequency Fungal infection of skin of abdomen Greater trochanteric bursitis of right hip Greater trochanteric bursitis of left hip Family history of colon cancer Daytime somnolence Morning headache Pre-op examination Asthma Diabetes mellitus Obstructive sleep apnea Hypothyroidism Hypertension GERD (gastroesophageal reflux disease) Diabetes Hirsutism Varicose veins with pain Restless leg syndrome Congenital pulmonary arteriovenous malformation Urinary retention Epicondylitis, lateral Interstitial cystitis Spinal stenosis of lumbar region Chronic pain syndrome Spondylosis, lumbar, with myelopathy Morbid obesity due to excess calories Arthritis Fibromyalgia Migraines Hypothyroid Restrictive lung disease Allergic rhinitis AISHWARYA on CPAP Surgical History Hx of spinal surgery Hx of cystoscopy Hx of colonoscopy History of esophagogastroduodenoscopy (EGD) Family History Family History Father Alcoholism Mother Leukemia Maternal Aunt Breast cancer Sister Depression Vertigo Family/Other Heart problem Diabetes Cancer Brother Atherosclerotic cardiovascular disease Cardiomegaly Social History Social History Household Members: Family Household Members Other:: Niece and great nieces and nephews Housing: Apartment Are you a primary complex care nurse to a significant other at home: No Do you presently have visiting nurse or other home services: No Alcohol intake: never Comment: NONE Patient Tobacco Use Status: Never used Tobacco Smoked in Last 30 Days: No e-Cigarette/Vaping Use: Never Used Patient Interested in Nicotine Replacement: No (n/a) Patient Given Instructions on How to Stop Smoking: No (n/a) Second Hand Smoke Exposure: No Use of substances other than those prescribed or required for medical reasons: Yes Substance Use Type: Marijuana Substance Use Frequency: Occasionally Last Used Substance Other:: 01/26/24 Currently Displaying Signs/Symptoms of Drug Intoxication Withdrawal: No Any prior treatment program specific to substance use: No Have you been hit, kicked, punched, or otherwise hurt by someone within the past year? If so, by whom?: No Do you feel safe in your current relationship?: No Current Relationship Is there a partner from a previous relationship who is making you feel unsafe now?: No Are you made to feel afraid or neglected: No Advance Directives: No Advance Directives Information Provided: No Do you have a plan to hurt others: No Plan Recently lost weight without trying: Yes How much weight loss: 14-23 pounds Eating poorly because of decreased appetite: Yes Nutrition screen score: 5 Nutrition Risks: No Nutritional Risk Patient : No : No Poor oral hygiene: No service: No Current occupational status: disabled 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 Physical Exam ED Vital Signs: Vital Signs - 24 hr 01/31/24 17:46 01/31/24 19:51 01/31/24 22:12 Temperature 96.3 F L 97.5 F 97.6 F Pulse Rate 81 85 72 Respiratory Rate 20 14 12 Blood Pressure 144/90 H 148/97 H 126/65 Pulse Oximetry 97 97 97 Oxygen Delivery Method Room Air Room Air Room Air BMI result Body Mass Index 50.4 Const Other: Alert, pleasant, appears older than stated age Orientation/consciousness: patient oriented x3 Resp Other: Nonlabored respiration Cardio Other: Normal peripheral perfusion Skin Other: Warm dry no rash Neuro General: patient oriented x3, no focal motor deficits and CN's II-XI intact bilaterally Psych Other: Cooperative here in the ER Course Course Course Narrative: RME, this is a rapid medical exam performed by Carlo Farr please refer to primary provider for complete H&P- 48 year old female presents for evaluation depression and decreased energy. She reports that she has not wanted to get out of bed for the last 3 days to even shower. She has had decreased appetite. Plan for medical clearance and care team evaluation once cleared Medications Administered Generic Name Dose Route Start Last Admin Trade Name Freq PRN Reason Stop Dose Admin Clonazepam 0.5 mg 02/01/24 00:11 02/01/24 15:49 Clonazepam 0.5 Mg Tablet PO 0.5 mg TID PRN Administration anxiety attack Empagliflozin 10 mg 02/01/24 09:00 02/01/24 09:54 Empagliflozin 10 Mg Tablet PO 10 mg DAILY DAVID Administration Gabapentin 600 mg 02/01/24 09:00 02/01/24 14:16 Gabapentin 600 Mg Tablet PO 600 mg TID DAVID Administration Loratadine 10 mg 02/01/24 09:00 02/01/24 09:54 Loratadine 10 Mg Tablet PO 10 mg DAILY DAVID Administration Metoclopramide HCl 10 mg 02/01/24 16:30 02/01/24 16:40 Metoclopramide Hcl 10 Mg Tablet PO 10 mg TIDAC DAVID Administration Ondansetron HCl 4 mg 02/01/24 00:11 02/01/24 01:19 Ondansetron Odt 4 Mg Tab.Rapdis TRANSLINGU 4 mg TID PRN Administration nausea/vomiting Paroxetine HCl 30 mg 02/01/24 09:00 02/01/24 09:54 Paroxetine Hcl 30 Mg Tablet PO 30 mg DAILY DAVID Administration Tolterodine Tartrate 4 mg 02/01/24 09:00 02/01/24 10:22 Tolterodine Tartrate La 4 Mg Cap.Er.24h PO 4 mg DAILY DAVID Administration Verapamil HCl 240 mg 02/01/24 09:00 02/01/24 10:22 Verapamil Hcl Sr 240 Mg Tablet.Er PO 240 mg DAILY DAVID Administration Protocol Medical Decision Making Medical Decision Making MDM Narrative: 48-year-old female with a history of morbid obesity, chronic pain syndrome, depression, presents with depression. Patient indicates over the past 3 days she has just been in bed. She is not eating, she is unable to sleep, she has not showered. Denies SI or HI. Problem: Depression, chronic pain History: Per patient I have considered the following differential diagnoses: SI, HI, decompensated psychiatric illness, drug/alcohol intoxication Plan: Patient was seen in the community, she has already of bed search. She has been off her medications in his decompensated at this time. Screening labs and clearing ethanol and drug tox have been obtained I have independently reviewed the following tests: Labs: No leukocytosis, not anemic, no electrolyte abnormality, ethanol negative, U tox negative 02/01/2024 at 17:24 hours, Dr. Miguel Wall's note End physician observation on 02/01/2024 at 10:26 hours 48-year-old female history of depression, pancreatitis, chronic pain syndrome, obstructive sleep apnea on CPAP presented to the emergency department for evaluation of increased depression, not able to sleep or or eat. Patient was evaluated by the care team and was on a Section 12. Patient was accepted onto our psychiatric unit. Observation care revealed the the patien did] meet medical necessity for hospitalization. Exam at time of disposition revealed the patient was awake, alert , oriented to person place, was not in any distress. ? Final disposition discussed with the patient was discuss with the patient by the care team. . Patient started observation time on 01/31/2024 at 20:23 hours. Patient completed observation care on 02/01/2024 at 10:26 hours Total time spent in observation care was 38 hours and 3 minutes. Lab Data 01/31/24 18:15 01/31/24 18:15 Labs: Lab Results 01/31/24 01/31/24 01/31/24 Range/Units 18:15 19:31 23:14 WBC 8.7 (4.8-10.8) X10*3/uL RBC 5.05 (4.20-5.50) X10*6/uL Hgb 15.6 (12.0-16.0) g/dl Hct 44.0 (37.0-47.0) % MCV 87.1 (80.0-98.0) fL MCH 30.9 (27.0-33.0) pg MCHC 35.5 H (31.0-35.0) g/dl RDW 12.6 (11.0-16.0) % Plt Count 243 (160-400) X10*3/uL MPV 9.0 L (9.4-12.3) fL Immature Gran % (Auto) 0.2 (0.0-0.4) % Neut % (Auto) 69.7 (45-73) % Lymph % (Auto) 19.4 L (20-40) % [place] % (Auto) 10.4 (2-11) % Eos % (Auto) 0.2 (0-4) % Baso % (Auto) 0.1 (0-2) % Lymph # (Auto) 1.7 (1.2-4.9) X10*3/uL [place] # (Auto) 0.9 (0.1-1.2) X10*3/uL Eos # (Auto) 0.0 (0.0-0.4) X10*3/uL Baso # (Auto) 0.0 (0.0-0.2) X10*3/uL Abs Immat Gran (auto) 0.02 (0.00-0.03) X10*3/uL Absolute Neuts (auto) 6.1 (2.0-8.3) x10*3/uL Absolute Nucleated RBC 0.000 (0.0-0.012) X10*3/uL Nucleated RBC % (auto) 0.0 (0.0-0.2) /100WBC Sodium 138 (135-145) mmol/L Potassium 3.6 (3.3-5.1) mmol/L Chloride 101 (96-108) mmol/L Carbon Dioxide 28 (22-29) mmol/L Anion Gap 13 (12-20) BUN 11 (9-16) mg/dL Creatinine 0.77 (0.5-1.4) mg/dL Estim Creat Clear Calc 106.3 Estimated GFR > 60 POC Glucose 113 (60-115) mg/dL Random Glucose 110 (60-115) mg/dL Calcium 9.7 (8.4-10.2) mg/dL Total Bilirubin 0.8 (0.0-1.0) mg/dL AST 21 (5-31) U/L ALT 21 (0-31) U/L Alkaline Phosphatase 63 (39-117) U/L Total Protein 7.7 (6.5-8.0) g/dL Albumin 4.1 (3.5-5.0) g/dL Free T4 1.09 (0.71-1.85) ng/dL TSH 3rd Generation 3.10 (0.32-4.0) uIU/mL Urine Color Dark Yellow Urine Appearance Clear Urine pH 6.0 (5.0-9.0) Ur Specific [place] >= 1.030 H (1.005-1.025) Urine Protein 30 (1+) H (Neg-Trace) mg/dL Urine Glucose (UA) Negative (Negative) mg/dL Urine Ketones 15 (Negative) mg/dL Urine Blood Negative (Negative) Urine Nitrite Negative (Negative) Ur Leukocyte Esterase Trace H (Negative) Urine RBC 0-2 (0-2) /HPF Urine WBC 0-5 (0-5) /HPF Ur Squamous Epith Cells 11-20 (0-2) /HPF Urine Bacteria 2+ (None Seen) Hyaline Casts 3-5 (0-2) /LPF Urine Test NEGATIVE (NEGATIVE) Salicylates < 5.0 L (15-30) mg/dL Urine Opiates Screen Not Detected (Not Detect) Ur Buprenorphine Scrn Not Detected (Not Detect) ng/mL Ur Oxycodone Screen Not Detected (Not Detect) ng/mL Urine Methadone Screen Not Detected (Not Detect) ng/mL Urine Fentanyl Screen Not Detected (Not Detect) Acetaminophen < 3 (<30) mcg/mL Ur Barbiturates Screen Not Detected (Not Detect) Ur Phencyclidine Scrn Not Detected (Not Detect) Ur Amphetamines Screen Not Detected (Not Detect) U Benzodiazepines Scrn Not Detected (Not Detect) Urine Cocaine Screen Not Detected (Not Detect) U Marijuana (THC) Screen Not Detected (Not Detect) Ethyl Alcohol < 10 mg/dL Influenza Type A (PCR) NEGATIVE (Negative) Influenza Type B (PCR) NEGATIVE (Negative) RSV RNA Qual (PCR) NEGATIVE (Negative) SARS-CoV-2 RNA (RT-PCR) NEGATIVE (Negative) 02/01/24 Range/Units 05:47 WBC (4.8-10.8) X10*3/uL RBC (4.20-5.50) X10*6/uL Hgb (12.0-16.0) g/dl Hct (37.0-47.0) % MCV (80.0-98.0) fL MCH (27.0-33.0) pg MCHC (31.0-35.0) g/dl RDW (11.0-16.0) % Plt Count (160-400) X10*3/uL MPV (9.4-12.3) fL Immature Gran % (Auto) (0.0-0.4) % Neut % (Auto) (45-73) % Lymph % (Auto) (20-40) % [place] % (Auto) (2-11) % Eos % (Auto) (0-4) % Baso % (Auto) (0-2) % Lymph # (Auto) (1.2-4.9) X10*3/uL [place] # (Auto) (0.1-1.2) X10*3/uL Eos # (Auto) (0.0-0.4) X10*3/uL Baso # (Auto) (0.0-0.2) X10*3/uL Abs Immat Gran (auto) (0.00-0.03) X10*3/uL Absolute Neuts (auto) (2.0-8.3) x10*3/uL Absolute Nucleated RBC (0.0-0.012) X10*3/uL Nucleated RBC % (auto) (0.0-0.2) /100WBC Sodium (135-145) mmol/L Potassium (3.3-5.1) mmol/L Chloride (96-108) mmol/L Carbon Dioxide (22-29) mmol/L Anion Gap (12-20) BUN (9-16) mg/dL Creatinine (0.5-1.4) mg/dL Estim Creat Clear Calc Estimated GFR POC Glucose 105 (60-115) mg/dL Random Glucose (60-115) mg/dL Calcium (8.4-10.2) mg/dL Total Bilirubin (0.0-1.0) mg/dL AST (5-31) U/L ALT (0-31) U/L Alkaline Phosphatase (39-117) U/L Total Protein (6.5-8.0) g/dL Albumin (3.5-5.0) g/dL Free T4 (0.71-1.85) ng/dL TSH 3rd Generation (0.32-4.0) uIU/mL Urine Color Urine Appearance Urine pH (5.0-9.0) Ur Specific [place] (1.005-1.025) Urine Protein (Neg-Trace) mg/dL Urine Glucose (UA) (Negative) mg/dL Urine Ketones (Negative) mg/dL Urine Blood (Negative) Urine Nitrite (Negative) Ur Leukocyte Esterase (Negative) Urine RBC (0-2) /HPF Urine WBC (0-5) /HPF Ur Squamous Epith Cells (0-2) /HPF Urine Bacteria (None Seen) Hyaline Casts (0-2) /LPF Urine Test (NEGATIVE) Salicylates (15-30) mg/dL Urine Opiates Screen (Not Detect) Ur Buprenorphine Scrn (Not Detect) ng/mL Ur Oxycodone Screen (Not Detect) ng/mL Urine Methadone Screen (Not Detect) ng/mL Urine Fentanyl Screen (Not Detect) Acetaminophen (<30) mcg/mL Ur Barbiturates Screen (Not Detect) Ur Phencyclidine Scrn (Not Detect) Ur Amphetamines Screen (Not Detect) U Benzodiazepines Scrn (Not Detect) Urine Cocaine Screen (Not Detect) U Marijuana (THC) Screen (Not Detect) Ethyl Alcohol mg/dL Influenza Type A (PCR) (Negative) Influenza Type B (PCR) (Negative) RSV RNA Qual (PCR) (Negative) SARS-CoV-2 RNA (RT-PCR) (Negative) Discharge Plan Discharge Clinical Impression: Depression Patient Disposition: Admitted As Inpatient Discharge Date/Time: 02/01/24 12:33
[2024-01-31 17:46] VITALS: BP 144/90; PULSE 81; RESP 20; TEMP 35.7; O2SAT 97; BMI 50.4
--- NOTE | 2024-01-31 17:47 | ECG_ITS ---
Test Reason : dizzy Blood Pressure : / mmHG Vent. Rate : 078 BPM Atrial Rate : 078 BPM P-R Int : 154 ms QRS Dur : 082 ms QT Int : 378 ms P-R-T Axes : 029 023 023 degrees QTc Int : 430 ms Normal sinus rhythm Normal ECG When compared with ECG of 28-JUN-2023 00:40, No significant change was found Referred By: Booker Farr Electronically Signed By:Apolinar Yanez
[2024-01-31 18:20] LABS: MANUAL DIFF FLAG NO
[2024-01-31 18:22] LABS: Basophils Percent Auto 0.1 % (0-2); Eosinophils Percent Auto 0.2 % (0-4); Hemoglobin 15.6 g/dl (12.0-16.0); Imm Gran Abs Auto 0.02 X10*3/uL (0.00-0.03); Imm Gran Pct Auto 0.2 % (0.0-0.4); Lymphocytes Absolute Auto 1.7 X10*3/uL (1.2-4.9); Lymphocytes Percent Auto 19.4 % (20-40); Mean Corpuscular HGB Conc 35.5 g/dl (31.0-35.0); Mean Corpuscular Hemoglobin 30.9 pg (27.0-33.0); Mean Corpuscular Volume 87.1 fL (80.0-98.0); Monocytes Absolute Auto 0.9 X10*3/uL (0.1-1.2); Monocytes Percent Auto 10.4 % (2-11); Neutrophils Absolute Auto 6.1 x10*3/uL (2.0-8.3); Neutrophils Percent Auto 69.7 % (45-73); Platelet Count 243 X10*3/uL (160-400); Red Blood Count 5.05 X10*6/uL (4.20-5.50); Red Cell Distribution Width 12.6 % (11.0-16.0); White Blood Count 8.7 X10*3/uL (4.8-10.8)
[2024-01-31 18:38] LABS: Acetaminophen LAB < 3 mcg/mL (<30); Alanine Aminotransferase 21 U/L (0-31); Albumin Level 4.1 g/dL (3.5-5.0); Alkaline Phosphatase 63 U/L (39-117); Anion Gap 13 (12-20); Aspartate Amino Transferase 21 U/L (5-31); Bilirubin Total 0.8 mg/dL (0.0-1.0); Blood Urea Nitrogen 11 mg/dL (9-16); Calcium 9.7 mg/dL (8.4-10.2); Carbon Dioxide 28 mmol/L (22-29); Chloride 101 mmol/L (96-108); Creatinine Clr Calc Pharmacy 106.3; Estimated Glomerular Filt Rate > 60; Ethanol < 10 mg/dL; Glucose Random 110 mg/dL (60-115); Potassium 3.6 mmol/L (3.3-5.1); Salicylate < 5.0 mg/dL (15-30); Sodium 138 mmol/L (135-145); Total Protein 7.7 g/dL (6.5-8.0)
[2024-01-31 19:14] LABS: Influenza A PCR NEGATIVE (Negative); Influenza B PCR NEGATIVE (Negative); Resp Syncy Virus RNA Qual PCR NEGATIVE (Negative); SARS COV2 PCR INHOUSE NEGATIVE (Negative)
[2024-01-31 19:40] LABS: Appearance Urine Clear; Color Urine Dark Yellow; Glucose Urine UA Negative (Negative); Leukocyte Esterase Urine Trace (Negative); Nitrite Urine Negative (Negative); Specific Gravity - Urine >= 1.030 (1.005-1.025); UMIC TRIGGER UA YES; UPreg QC Valid YES; Urine Blood Negative (Negative); Urine Ketones 15 mg/dL (Negative); Urine Pregnancy NEGATIVE (NEGATIVE); Urine Protein 30 (1+) mg/dL (Neg-Trace)
[2024-01-31 19:46] LABS: Bacteria Urine 2+ (None Seen); RBC Urine 0-2 /HPF (0-2); WBC Urine 0-5 /HPF (0-5)
[2024-01-31 19:48] LABS: Amphetamine Screen Urine Not Detected (Not Detect); Barbiturates, Urine Not Detected (Not Detect); Benzodiazepines Screen Urine Not Detected (Not Detect); Buprenorphine Scr Not Detected (Not Detect); Cannabinoid Screen Urine Not Detected (Not Detect); Cocaine Screen Urine Not Detected (Not Detect); Fentanyl, urine Not Detected (Not Detect); Methadone Screen, Urine Not Detected (Not Detect); Opiate Screen Urine Not Detected (Not Detect); Oxycodone Screen Urine Not Detected (Not Detect); Phencyclidine Screen Urine Not Detected (Not Detect)
[2024-01-31 19:51] VITALS: BP 148/97; PULSE 85; RESP 14; TEMP 36.4; O2SAT 97
[2024-01-31 19:52] LABS: Free T4 (Free Thyroxine) 1.09 ng/dL (0.71-1.85)
--- NOTE | 2024-01-31 20:48 | PC.NURSE ---
pt arrives to the ED reporting depression x 1.5 months. states the last 3 days has been worse, she has not gotten out of bed or showered. Pt takes paroxetine and klonopin for anxiety and depression. denies SI/HI at this time. denies previous episodes of this. says she just wants help with her depression and is willing to go inpatient. pt changed into regular hospital gown. calm cooperative in room. consult to care team in place.
[2024-01-31 22:12] VITALS: BP 126/65; PULSE 72; RESP 12; TEMP 36.4; O2SAT 97
--- NOTE | 2024-01-31 22:18 | MHC.CARE ---
Pt assessed by CARE team, Pt will be an Adult IPLOC bed search for mood stabilization, mood stabilization and for additional support. Disposition was discussed with ER Julia HENDERSON who was in agreement with disposition. Pt is voluntary for IPLOC but will be placed on section 12 for safety while bed search is completed. If an Adult IPLOC bed is not found, Pt will then be reassessed tomorrow for a mental status update.
--- NOTE | 2024-01-31 22:54 | MHC.EDTECH ---
upon pt request, pt was given sandwich and gingerale. pt consumed 100% of snack
--- NOTE | 2024-01-31 23:17 | PC.NURSE ---
pt is on a sect 12 adult inpt bedsearch for depression. changeover being done by rachel KING and security. belongings searched and placed in pod. pt ambulating into pod, report given to Jagdeep ALVES.
[2024-01-31 23:18] LABS: Glucose, Whole Blood 113 mg/dL (60-115)
[2024-02-01] MEDS: clonazePAM 0.5 MG TABLET PO ×2 (01:19→15:49)
[2024-02-01] MEDS: Ondansetron ODT 4 MG TAB.RAPDIS TRANSLINGU ×2 (01:19→21:05)
--- NOTE | 2024-02-01 05:43 | PC.NURSE ---
Patient was on CPAP, 1:1, slept through the night, no distress observed/reported, disposition per care team is section is section 12 inpatient bed search, will continue to monitor
[2024-02-01 05:51] LABS: Glucose, Whole Blood 105 mg/dL (60-115)
[2024-02-01] MEDS: Empagliflozin 10 MG TABLET PO (09:54)
[2024-02-01] MEDS: Loratadine 10 MG TABLET PO (09:54)
[2024-02-01] MEDS: Gabapentin 600 MG TABLET PO ×3 (09:54→21:05)
[2024-02-01] MEDS: PARoxetine HCL 30 MG TABLET PO (09:54)
--- NOTE | 2024-02-01 10:05 | PC.NURSE ---
Awaiting 09:00 doses of Tolterodine and Verapamil at this time.
[2024-02-01] MEDS: VerapamiL HCL SR 240 MG TABLET.ER PO (10:22)
[2024-02-01] MEDS: Tolterodine Tartrate LA 4 MG CAP.ER.24H PO (10:22)
[2024-02-01 10:31] VITALS: BP 108/66; PULSE 85; RESP 20; TEMP 36.8; O2SAT 95
--- NOTE | 2024-02-01 11:45 | PC.NURSE ---
RN-to-RN report given to Barbara Newby RN on M3.
[2024-02-01 12:44] VITALS: BMI 49.8
[2024-02-01 13:52] VITALS: BP 118/72; PULSE 104; RESP 20; TEMP 36.9; O2SAT 95
--- NOTE | 2024-02-01 14:41 | P.HPPS_ITS ---
HPI Date of Service: 02/01/24 Chief Complaint: Crisis Sources of Information: patient interviewed, chart reviewed and crisis/core team assessment reviewed HPI Subjective Notes: Munoz Warning and Conditional Voluntary Narrative: Patient is a 48-year-old female with history MDD who self presented to [facility] reporting increased depression, not getting out of bed, showering or taking her medications for the past 3 days. Per crisis report, patient reports feeling weak, and not being able to eat. Patient reports worsening depression and is unsure what is causing this. Patient reports thoughts of hopelessness which results in her isolating and not taking care of her ADLs. Patient sees Dr. Lauren Cheng for psychiatry. Patient reports being hospitalized on an inpatient psychiatric unit in [place] about 14 years ago with a similar presentation. During admission assessment, patient presents alert and oriented x3. Calm and cooperative. Patient reports feeling depressed ; patient stated, I suffer from depression. For the past couple of months I'm always tired. I have been sleeping straight for the past 3 days and would only wake up to go to the bathroom . Patient denies SI/HI/VH/AH. Patient denies history of SIB/SA. Patient reports having outpatient psychiatric providers through [facility]. Patient reports smoking marijuana occasionally; denies any other substance use. Utox negative. Past Psychiatric History: Patient reports history of inpatient hospitalization in [place] 14 years ago for similar presentation. Denies SA/SIB. OP: Prescriber: Lauren Andino Therapist: Catherine Medical Evaluation Reviewed: Yes [facility] Medical History Disc degeneration, lumbar Nausea and vomiting Left forearm pain Patellofemoral arthralgia of right knee Urinary frequency Fungal infection of skin of abdomen Greater trochanteric bursitis of right hip Greater trochanteric bursitis of left hip Family history of colon cancer Daytime somnolence Morning headache Pre-op examination Asthma Diabetes mellitus Obstructive sleep apnea Hypothyroidism Hypertension GERD (gastroesophageal reflux disease) Diabetes Hirsutism Varicose veins with pain Restless leg syndrome Congenital pulmonary arteriovenous malformation Urinary retention Epicondylitis, lateral Interstitial cystitis Spinal stenosis of lumbar region Chronic pain syndrome Spondylosis, lumbar, with myelopathy Morbid obesity due to excess calories Arthritis Fibromyalgia Migraines Hypothyroid Restrictive lung disease Allergic rhinitis AISHWARYA on CPAP Surgical History Hx of spinal surgery Hx of cystoscopy Hx of colonoscopy History of esophagogastroduodenoscopy (EGD) Family History: Sister: Depression Brother: Depression Social History: Lives with niece. Single. No kids. Disability. High school diploma. Substance History: Reports occasional marijuana use. Denies any other substance use. U tox negative. Trauma History: Denies Diagnostics Vital Signs (24Hr): Vital Signs - 24 hr 01/31/24 17:46 01/31/24 19:51 01/31/24 22:12 Temperature 96.3 F L 97.5 F 97.6 F Pulse Rate 81 85 72 Respiratory Rate 20 14 12 Blood Pressure 144/90 H 148/97 H 126/65 Pulse Oximetry 97 97 97 Oxygen Delivery Method Room Air Room Air Room Air 02/01/24 10:31 02/01/24 13:52 Temperature 98.2 F 98.4 F Pulse Rate 85 104 H Respiratory Rate 20 20 Blood Pressure 108/66 118/72 Pulse Oximetry 95 95 Oxygen Delivery Method Room Air Room Air BMI result Body Mass Index 49.8 Labs 01/31/24 18:15 01/31/24 18:15 Labs: Laboratory Results - last 48 hr 01/31/24 01/31/24 01/31/24 18:15 19:31 23:14 WBC 8.7 RBC 5.05 Hgb 15.6 Hct 44.0 MCV 87.1 MCH 30.9 MCHC 35.5 H RDW 12.6 Plt Count 243 MPV 9.0 L Immature Gran % (Auto) 0.2 Neut % (Auto) 69.7 Lymph % (Auto) 19.4 L [place] % (Auto) 10.4 Eos % (Auto) 0.2 Baso % (Auto) 0.1 Lymph # (Auto) 1.7 [place] # (Auto) 0.9 Eos # (Auto) 0.0 Baso # (Auto) 0.0 Abs Immat Gran (auto) 0.02 Absolute Neuts (auto) 6.1 Absolute Nucleated RBC 0.000 Nucleated RBC % (auto) 0.0 Sodium 138 Potassium 3.6 Chloride 101 Carbon Dioxide 28 Anion Gap 13 BUN 11 Creatinine 0.77 Estim Creat Clear Calc 106.3 Estimated GFR > 60 POC Glucose 113 Random Glucose 110 Calcium 9.7 Total Bilirubin 0.8 AST 21 ALT 21 Alkaline Phosphatase 63 Total Protein 7.7 Albumin 4.1 Free T4 1.09 TSH 3rd Generation 3.10 Urine Color Dark Yellow Urine Appearance Clear Urine pH 6.0 Ur Specific [place] >= 1.030 H Urine Protein 30 (1+) H Urine Glucose (UA) Negative Urine Ketones 15 Urine Blood Negative Urine Nitrite Negative Ur Leukocyte Esterase Trace H Urine RBC 0-2 Urine WBC 0-5 Ur Squamous Epith Cells 11-20 Urine Bacteria 2+ Hyaline Casts 3-5 Urine Test NEGATIVE Salicylates < 5.0 L Urine Opiates Screen Not Detected Ur Buprenorphine Scrn Not Detected Ur Oxycodone Screen Not Detected Urine Methadone Screen Not Detected Urine Fentanyl Screen Not Detected Acetaminophen < 3 Ur Barbiturates Screen Not Detected Ur Phencyclidine Scrn Not Detected Ur Amphetamines Screen Not Detected U Benzodiazepines Scrn Not Detected Urine Cocaine Screen Not Detected U Marijuana (THC) Screen Not Detected Ethyl Alcohol < 10 Influenza Type A (PCR) NEGATIVE Influenza Type B (PCR) NEGATIVE RSV RNA Qual (PCR) NEGATIVE SARS-CoV-2 RNA (RT-PCR) NEGATIVE 02/01/24 05:47 WBC RBC Hgb Hct MCV MCH MCHC RDW Plt Count MPV Immature Gran % (Auto) Neut % (Auto) Lymph % (Auto) [place] % (Auto) Eos % (Auto) Baso % (Auto) Lymph # (Auto) [place] # (Auto) Eos # (Auto) Baso # (Auto) Abs Immat Gran (auto) Absolute Neuts (auto) Absolute Nucleated RBC Nucleated RBC % (auto) Sodium Potassium Chloride Carbon Dioxide Anion Gap BUN Creatinine Estim Creat Clear Calc Estimated GFR POC Glucose 105 Random Glucose Calcium Total Bilirubin AST ALT Alkaline Phosphatase Total Protein Albumin Free T4 TSH 3rd Generation Urine Color Urine Appearance Urine pH Ur Specific [place] Urine Protein Urine Glucose (UA) Urine Ketones Urine Blood Urine Nitrite Ur Leukocyte Esterase Urine RBC Urine WBC Ur Squamous Epith Cells Urine Bacteria Hyaline Casts Urine Test Salicylates Urine Opiates Screen Ur Buprenorphine Scrn Ur Oxycodone Screen Urine Methadone Screen Urine Fentanyl Screen Acetaminophen Ur Barbiturates Screen Ur Phencyclidine Scrn Ur Amphetamines Screen U Benzodiazepines Scrn Urine Cocaine Screen U Marijuana (THC) Screen Ethyl Alcohol Influenza Type A (PCR) Influenza Type B (PCR) RSV RNA Qual (PCR) SARS-CoV-2 RNA (RT-PCR) Meds/Allergies Meds Home Medications ?Medication ?Instructions ?Recorded ?Confirmed ?Type albuterol sulfate 90 mcg/actuation 2 puff inhalation Q4-6H PRN 01/31/24 01/31/24 History aerosol inhaler (Ventolin HFA) wheezing clonazepam 0.5 mg tablet 0.5 mg PO TID PRN anxiety attack 01/31/24 01/31/24 History empagliflozin 10 mg tablet 10 mg PO QAM 01/31/24 01/31/24 History (Jardiance) famotidine 40 mg tablet 40 mg PO BEDTIME 01/31/24 01/31/24 History gabapentin 600 mg tablet 600 mg PO TID 01/31/24 01/31/24 History loratadine 10 mg tablet 10 mg PO QAM 01/31/24 01/31/24 History ondansetron HCl 4 mg tablet 4 mg PO TID PRN nausea/vomiting 01/31/24 01/31/24 History paroxetine HCl 30 mg tablet 30 mg PO QAM 01/31/24 01/31/24 History solifenacin 5 mg tablet 10 mg PO QAM 01/31/24 01/31/24 History tramadol 50 mg tablet 50 mg PO Q6H PRN severe pain 01/31/24 01/31/24 History verapamil 240 mg 24 hr 240 mg PO QAM 01/31/24 01/31/24 History capsule,extended release zolpidem 10 mg tablet 10 mg PO BEDTIME 01/31/24 01/31/24 History Allergies Allergies Allergy/AdvReac Type Severity Reaction Status Date / Time cefuroxime [From CEFTIN] Allergy Severe HIVES Verified 01/31/24 17:49 Mental Status Exam Mental Status Exam Narrative: Pt is alert and oriented; behavior is cooperative and calm; dressed in casual attire; mood is described as depressed ; eye contact appropriate; Speech is normal rate, volume and not pressured; thought process is organized and goal directed; Thought content is on tx; otherwise pertinent to relevant topics and without any delusional content, paranoid ideations or grandiosity; denies SI/HI/VH/AH. Assessment & Plan Assessment & Plan (1) MDD (major depressive disorder), recurrent episode, moderate: Status: Acute Code(s): F33.1 - Major depressive disorder, recurrent, moderate Plan Patient is a 48-year-old female with history MDD who self presented to [facility] reporting increased depression, not getting out of bed, showering or taking her medications for the past 3 days. Plan: CV 15 minute safety checks Continue home medications Encourage groups Encourage importance of medication compliance Discharge planning Patient educated on: diagnosis, medication risk/benefits and therapeutic strategies Informed Consent: understands Reason for continued inpatient stay Substantial Risk for: med/psych decompensation Statement Statement: I have reviewed the history and physical and performed a pertinent examination on my patient. No changes have occurred unless specified. If the History and Physical was not performed prior to admission, the Hospitalist's service will be consulted for completing the admission physical. Time Spent With Patient Time: Total time managing care of this patient today _60___ minutes.
--- NOTE | 2024-02-01 16:19 | PC.ADMIT ---
Addendum entered and electronically signed by Barbara Newby RN 02/01/24 17:30: Additional medical issues reported: hypothyroidism, htn, fibromyalgia, chronic lower back pain. Original Note: [facility] at [facility] for this 48 y.o. women. Reports 2 prior behavioral health admissions in [place] Referred by [facility] Care Team with diagnosis of Major Depressive Disorder, Moderate. Nurse to nurse done prior to admission with [facility] ED Pod. Arrived on unit at 1230 and placed on 15 min safety checks. Section 12A upon arrival to unit, CV signed after speaking with provider, Randee Blair. Admission orders received from Randee Blair, meds verified by ED. Denies etoh use, reports occasional marijuana use. Current medical issues: IDDM, IBS, Interstitial cystitis, Asthma. Reports Trulicity weekly use. States she is unable to have Trulicity brought in from home and will not be using while here; pharmacy notified. Reports not taking meds x 1 1/2 months. Denies SI/HI, denies AH/VH. Precipitating events to admission: self presented to [facility] ED reporting depression. Reported not getting out of bed, showering or taking her meds for 3 days at time of ED visit. Reports poor appetite with loss of 14 lbs. Utilizes CPAP at hs and unable to have CPAP brought from home; Respiratory informed. Pleasant and cooperative during admission process. Alert and oriented x4. Skin check/slubber frame changer done upon admission to unit with 2 staff members present.
[2024-02-01] MEDS: Metoclopramide HCl 10 MG TABLET PO (16:40)
[2024-02-01 20:10] VITALS: BP 102/57; PULSE 91; RESP 14; TEMP 36.6; O2SAT 95
[2024-02-01] MEDS: Zolpidem Tartrate 5 MG TABLET 10 MG PO (21:05)
[2024-02-01 21:35] LABS: Glucose, Whole Blood 156 mg/dL (60-115)
[2024-02-01] MEDS: Famotidine 20 MG TABLET 40 MG PO (22:29)
[2024-02-01 23:29] VITALS: RESP 14
[2024-02-02 07:42] VITALS: BP 86/50; PULSE 74; RESP 14; TEMP 36.8; O2SAT 91
[2024-02-02 07:54] LABS: Glucose, Whole Blood 110 mg/dL (60-115)
[2024-02-02 08:25] VITALS: BP 115/83; PULSE 100; RESP 20; O2SAT 96
[2024-02-02] MEDS: Tolterodine Tartrate LA 4 MG CAP.ER.24H PO (08:28)
[2024-02-02] MEDS: VerapamiL HCL SR 240 MG TABLET.ER PO (08:28)
[2024-02-02] MEDS: Gabapentin 600 MG TABLET PO ×3 (08:28→20:23)
[2024-02-02] MEDS: PARoxetine HCL 30 MG TABLET PO (08:29)
[2024-02-02] MEDS: traMADoL HCL 50 MG TABLET PO (08:29)
[2024-02-02] MEDS: Metoclopramide HCl 10 MG TABLET PO ×3 (08:30→16:54)
[2024-02-02] MEDS: Loratadine 10 MG TABLET PO (08:30)
[2024-02-02] MEDS: Empagliflozin 10 MG TABLET PO (10:36)
--- NOTE | 2024-02-02 16:24 | HO.PSYCHPN ---
Subjective Subjective Date of Service: 02/02/24 Reason For Visit: Crisis Subjective Notes: Conditional Voluntary Interim History: Pt having multiple episodes of diarrhea due to IBS primarily with loose stool. she reports she takes loperamide 8mg recommended by her GI doc. She reports being depressed. No SI/HI. No psychosis or delusions. Review of Systems Review of Systems Yes all other systems are reviewed and are negative Constitutional: Reports as per HPI, Denies fatigue and Denies fever(s) Eyes: Reports as per HPI Reports as per HPI Cardiovascular: Reports as per HPI, Denies chest pain and Denies dyspnea Respiratory: Reports as per HPI, Denies cough and Denies dyspnea Gastrointestinal: Reports as per HPI, Denies abdominal pain, Denies nausea and Denies vomiting Musculoskeletal: Reports as per HPI Skin/Breast: Reports as per HPI Reports as per HPI Psychiatric: Reports as per HPI and Reports depression Endocrine: Reports as per HPI and Denies fatigue Hematologic/Lymphatic: Reports as per HPI Allergic/Immunologic: Reports as per HPI Mental Status Exam Mental Status Exam Narrative: Pt is alert and oriented; behavior is cooperative and calm; dressed in casual attire; mood is described as depressed ; eye contact appropriate; Speech is normal rate, volume and not pressured; thought process is organized and goal directed; Thought content is on tx; otherwise pertinent to relevant topics and without any delusional content, paranoid ideations or grandiosity; denies SI/HI/VH/AH. Diagnostics Vital Signs (24Hr): Vital Signs - 24 hr 02/01/24 20:10 02/01/24 23:29 02/02/24 07:42 Temperature 97.9 F 98.3 F Pulse Rate 91 74 Respiratory Rate 14 14 14 Blood Pressure 102/57 L 86/50 L Pulse Oximetry 95 91 L Oxygen Delivery Method Room Air Room Air 02/02/24 08:25 Temperature Pulse Rate 100 Respiratory Rate 20 Blood Pressure 115/83 Pulse Oximetry 96 Oxygen Delivery Method Room Air BMI result Body Mass Index 49.8 Labs 01/31/24 18:15 02/03/24 09:28 Labs: Laboratory Results - last 48 hr 01/31/24 01/31/24 01/31/24 18:15 19:31 23:14 WBC 8.7 RBC 5.05 Hgb 15.6 Hct 44.0 MCV 87.1 MCH 30.9 MCHC 35.5 H RDW 12.6 Plt Count 243 MPV 9.0 L Immature Gran % (Auto) 0.2 Neut % (Auto) 69.7 Lymph % (Auto) 19.4 L [place] % (Auto) 10.4 Eos % (Auto) 0.2 Baso % (Auto) 0.1 Lymph # (Auto) 1.7 [place] # (Auto) 0.9 Eos # (Auto) 0.0 Baso # (Auto) 0.0 Abs Immat Gran (auto) 0.02 Absolute Neuts (auto) 6.1 Absolute Nucleated RBC 0.000 Nucleated RBC % (auto) 0.0 Sodium 138 Potassium 3.6 Chloride 101 Carbon Dioxide 28 Anion Gap 13 BUN 11 Creatinine 0.77 Estim Creat Clear Calc 106.3 Estimated GFR > 60 POC Glucose 113 Random Glucose 110 Calcium 9.7 Total Bilirubin 0.8 AST 21 ALT 21 Alkaline Phosphatase 63 Total Protein 7.7 Albumin 4.1 Free T4 1.09 TSH 3rd Generation 3.10 Urine Color Dark Yellow Urine Appearance Clear Urine pH 6.0 Ur Specific [place] >= 1.030 H Urine Protein 30 (1+) H Urine Glucose (UA) Negative Urine Ketones 15 Urine Blood Negative Urine Nitrite Negative Ur Leukocyte Esterase Trace H Urine RBC 0-2 Urine WBC 0-5 Ur Squamous Epith Cells 11-20 Urine Bacteria 2+ Hyaline Casts 3-5 Urine Test NEGATIVE Salicylates < 5.0 L Urine Opiates Screen Not Detected Ur Buprenorphine Scrn Not Detected Ur Oxycodone Screen Not Detected Urine Methadone Screen Not Detected Urine Fentanyl Screen Not Detected Acetaminophen < 3 Ur Barbiturates Screen Not Detected Ur Phencyclidine Scrn Not Detected Ur Amphetamines Screen Not Detected U Benzodiazepines Scrn Not Detected Urine Cocaine Screen Not Detected U Marijuana (THC) Screen Not Detected Ethyl Alcohol < 10 Influenza Type A (PCR) NEGATIVE Influenza Type B (PCR) NEGATIVE RSV RNA Qual (PCR) NEGATIVE SARS-CoV-2 RNA (RT-PCR) NEGATIVE 02/01/24 02/01/24 02/02/24 05:47 21:13 07:50 WBC RBC Hgb Hct MCV MCH MCHC RDW Plt Count MPV Immature Gran % (Auto) Neut % (Auto) Lymph % (Auto) [place] % (Auto) Eos % (Auto) Baso % (Auto) Lymph # (Auto) [place] # (Auto) Eos # (Auto) Baso # (Auto) Abs Immat Gran (auto) Absolute Neuts (auto) Absolute Nucleated RBC Nucleated RBC % (auto) Sodium Potassium Chloride Carbon Dioxide Anion Gap BUN Creatinine Estim Creat Clear Calc Estimated GFR POC Glucose 105 156 H 110 Random Glucose Calcium Total Bilirubin AST ALT Alkaline Phosphatase Total Protein Albumin Free T4 TSH 3rd Generation Urine Color Urine Appearance Urine pH Ur Specific [place] Urine Protein Urine Glucose (UA) Urine Ketones Urine Blood Urine Nitrite Ur Leukocyte Esterase Urine RBC Urine WBC Ur Squamous Epith Cells Urine Bacteria Hyaline Casts Urine Test Salicylates Urine Opiates Screen Ur Buprenorphine Scrn Ur Oxycodone Screen Urine Methadone Screen Urine Fentanyl Screen Acetaminophen Ur Barbiturates Screen Ur Phencyclidine Scrn Ur Amphetamines Screen U Benzodiazepines Scrn Urine Cocaine Screen U Marijuana (THC) Screen Ethyl Alcohol Influenza Type A (PCR) Influenza Type B (PCR) RSV RNA Qual (PCR) SARS-CoV-2 RNA (RT-PCR) Medications Medications Current Medications Acetaminophen (Acetaminophen 325 Mg Tablet) 650 mg PO Q6H PRN PRN Reason: Headache/Pain Mild Scale (1-3) Al Hydroxide/Mg Hydroxide (Magnesium Hydrox/Alum Hydrox 30 Ml Oral.Susp) 30 ml PO Q6H PRN PRN Reason: Heartburn/Nausea Albuterol Sulfate (Albuterol Sulfate 90 Mcg 8 Gm Inhaler) 2 puff INHALE Q4H PRN PRN Reason: Wheezing Clonazepam (Clonazepam 0.5 Mg Tablet) 0.5 mg PO TID PRN PRN Reason: anxiety attack Last Admin: 02/01/24 15:49 Dose: 0.5 mg Empagliflozin (Empagliflozin 10 Mg Tablet) 10 mg PO DAILY [facility] Last Admin: 02/02/24 10:36 Dose: 10 mg Famotidine (Famotidine 20 Mg Tablet) 40 mg PO BEDTIME [facility] Last Admin: 02/01/24 22:29 Dose: 40 mg Gabapentin (Gabapentin 600 Mg Tablet) 600 mg PO TID [facility] Last Admin: 02/02/24 15:28 Dose: 600 mg Hydroxyzine HCl (Hydroxyzine Hcl 25 Mg Tablet) 25 mg PO Q6H PRN PRN Reason: Anxiety Loratadine (Loratadine 10 Mg Tablet) 10 mg PO DAILY [facility] Last Admin: 02/02/24 08:30 Dose: 10 mg Magnesium Hydroxide (Milk Of Magnesia 30 Ml Oral.Susp) 30 ml PO DAILY PRN PRN Reason: Constipation Metoclopramide HCl (Metoclopramide Hcl 10 Mg Tablet) 10 mg PO TIDAC [facility] Last Admin: 02/02/24 11:28 Dose: 10 mg Nicotine Polacrilex (Nicotine Polacrilex 2 Mg Gum) 4 mg BUCCAL Q2H PRN PRN Reason: Nicotine Cravings Ondansetron HCl (Ondansetron Odt 4 Mg Tab.Rapdis) 4 mg TRANSLINGU TID PRN PRN Reason: nausea/vomiting Last Admin: 02/01/24 21:05 Dose: 4 mg Paroxetine HCl (Paroxetine Hcl 30 Mg Tablet) 30 mg PO DAILY [facility] Last Admin: 02/02/24 08:29 Dose: 30 mg Tolterodine Tartrate (Tolterodine Tartrate La 4 Mg Cap.Er.24h) 4 mg PO DAILY [facility] Last Admin: 02/02/24 08:28 Dose: 4 mg Tramadol HCl (Tramadol Hcl 50 Mg Tablet) 50 mg PO Q6H PRN PRN Reason: Pain, Severe (Pain Scale 7-10) Last Admin: 02/02/24 08:29 Dose: 50 mg Trazodone HCl (Trazodone Hcl 50 Mg Tablet) 50 mg PO BEDTIME MRX1 PRN PRN Reason: Insomnia Verapamil HCl (Verapamil Hcl Sr 240 Mg Tablet.Er) 240 mg PO DAILY [facility]; Protocol Last Admin: 02/02/24 08:28 Dose: 240 mg Zolpidem Tartrate (Zolpidem Tartrate 5 Mg Tablet) 10 mg PO BEDTIME [facility] Last Admin: 02/01/24 21:05 Dose: 10 mg Allergies Allergies Allergy/AdvReac Type Severity Reaction Status Date / Time cefuroxime [From CEFTIN] Allergy Severe HIVES Verified 01/31/24 17:49 Assessment & Plan Assessment & Plan (1) MDD (major depressive disorder), recurrent episode, moderate: Status: Acute Code(s): F33.1 - Major depressive disorder, recurrent, moderate Plan Patient is a 48-year-old female with history MDD who self presented to [facility] reporting increased depression, not getting out of bed, showering or taking her medications for the past 3 days. Plan: CV 15 minute safety checks Continue home medications Encourage groups Encourage importance of medication compliance Discharge planning 02/01 loperamide 8mg po qhs prn for IBS with primarily loose stools. continue tx. Reason for continued inpatient stay Substantial Risk for: inability to function Time Spent With Patient Time: Total time managing care of this patient today ____ minutes.
[2024-02-02] MEDS: Loperamide HCl 2 MG CAPSULE 4 MG PO ×2 (16:54→20:23)
[2024-02-02] MEDS: clonazePAM 0.5 MG TABLET PO (17:47)
[2024-02-02 19:58] VITALS: BP 125/82; PULSE 103; RESP 16; TEMP 36.4; O2SAT 96
[2024-02-02] MEDS: Famotidine 20 MG TABLET 40 MG PO (20:23)
[2024-02-02] MEDS: hydrOXYzine HCL 25 MG TABLET PO (20:23)
[2024-02-02 20:34] LABS: Glucose, Whole Blood 139 mg/dL (60-115)
[2024-02-02 23:42] VITALS: RESP 16
[2024-02-03 07:25] VITALS: BP 134/78; PULSE 92; RESP 14; TEMP 36.8; O2SAT 96
[2024-02-03] MEDS: Gabapentin 600 MG TABLET PO ×3 (08:05→19:50)
[2024-02-03] MEDS: Tolterodine Tartrate LA 4 MG CAP.ER.24H PO (08:06)
[2024-02-03] MEDS: Loratadine 10 MG TABLET PO (08:06)
[2024-02-03] MEDS: VerapamiL HCL SR 240 MG TABLET.ER PO (08:06)
[2024-02-03] MEDS: Empagliflozin 10 MG TABLET PO (08:06)
[2024-02-03] MEDS: traMADoL HCL 50 MG TABLET PO ×2 (08:07→19:50)
[2024-02-03] MEDS: PARoxetine HCL 30 MG TABLET PO (08:07)
[2024-02-03] MEDS: Metoclopramide HCl 10 MG TABLET PO ×3 (08:07→16:58)
[2024-02-03 08:17] LABS: Glucose, Whole Blood 138 mg/dL (60-115)
[2024-02-03] MEDS: Loperamide HCl 2 MG CAPSULE 4 MG PO ×2 (08:19→10:16)
[2024-02-03 08:45] LABS: Estimated Average Glucose 103 mg/dL; Hemoglobin A1C 118.9409 umol/L; Hemoglobin A1c % 5.2 % (<6.0); Total Hemoglobin (HGBA1C) 3587.7189 umol/L
[2024-02-03 10:29] LABS: Alanine Aminotransferase 19 U/L (0-31); Albumin Level 3.8 g/dL (3.5-5.0); Alkaline Phosphatase 76 U/L (39-117); Anion Gap 11 (12-20); Aspartate Amino Transferase 19 U/L (5-31); Bilirubin Total 0.4 mg/dL (0.0-1.0); Blood Urea Nitrogen 17 mg/dL (9-16); Calcium 9.3 mg/dL (8.4-10.2); Carbon Dioxide 27 mmol/L (22-29); Chloride 103 mmol/L (96-108); Cholesterol 118 mg/dL (<200); Creatinine Clr Calc Pharmacy 93.3; Estimated Glomerular Filt Rate > 60; Glucose Fasting 157 mg/dL (60-99); HDL Cholesterol 29 mg/dL (>40); LDL Cholesterol Calculated 66 mg/dL (<100); Potassium 4.1 mmol/L (3.3-5.1); Sodium 139 mmol/L (135-145); Triglycerides 115 mg/dL (<150)
[2024-02-03 10:50] LABS: Folate 7.1 ng/mL (> or = 4.0); Vitamin B12 293 pg/mL (200-900)
[2024-02-03 11:29] LABS: Free T4 (Free Thyroxine) 1.01 ng/dL (0.71-1.85)
[2024-02-03] MEDS: Loperamide HCl 2 MG CAPSULE 8 MG PO (14:56)
--- NOTE | 2024-02-03 16:06 | HO.PSYCHPN ---
Subjective Subjective Date of Service: 02/03/24 Reason For Visit: Crisis Subjective Notes: Conditional Voluntary Interim History: continues to have episodes of diarrhea due to IBS primarily with loose stool.She has been on paxil for about one month. not sure about therapeutic efficacy. more visible today. She reports being depressed. No SI/HI. No psychosis or delusions. Review of Systems Review of Systems Yes all other systems are reviewed and are negative Constitutional: Reports as per HPI, Denies fatigue and Denies fever(s) Eyes: Reports as per HPI Reports as per HPI Cardiovascular: Reports as per HPI, Denies chest pain and Denies dyspnea Respiratory: Reports as per HPI, Denies cough and Denies dyspnea Gastrointestinal: Reports as per HPI, Denies abdominal pain, Denies nausea and Denies vomiting Musculoskeletal: Reports as per HPI Skin/Breast: Reports as per HPI Reports as per HPI Psychiatric: Reports as per HPI and Reports depression Endocrine: Reports as per HPI and Denies fatigue Hematologic/Lymphatic: Reports as per HPI Allergic/Immunologic: Reports as per HPI Mental Status Exam Mental Status Exam Narrative: Pt is alert and oriented; behavior is cooperative and calm; dressed in casual attire; mood is described as depressed ; eye contact appropriate; Speech is normal rate, volume and not pressured; thought process is organized and goal directed; Thought content is on tx; otherwise pertinent to relevant topics and without any delusional content, paranoid ideations or grandiosity; denies SI/HI/VH/AH. Diagnostics Vital Signs (24Hr): Vital Signs - 24 hr 02/02/24 19:58 02/02/24 23:42 02/03/24 07:25 Temperature 97.5 F 98.2 F Pulse Rate 103 H 92 Respiratory Rate 16 16 14 Blood Pressure 125/82 134/78 Pulse Oximetry 96 96 Oxygen Delivery Method Room Air Room Air BMI result Body Mass Index 49.8 Labs 01/31/24 18:15 02/03/24 09:28 Labs: Laboratory Results - last 48 hr 02/01/24 02/02/24 02/02/24 21:13 07:50 20:27 Sodium Potassium Chloride Carbon Dioxide Anion Gap BUN Creatinine Estim Creat Clear Calc Estimated GFR POC Glucose 156 H 110 139 H Fasting Glucose Estimat Average Glucose Hemoglobin A1c % Calcium Total Bilirubin AST ALT Alkaline Phosphatase Total Protein Albumin Triglycerides Cholesterol LDL Cholesterol, Calc HDL Cholesterol Vitamin B12 Folate TSH Free T4 02/03/24 02/03/24 02/03/24 08:12 08:15 09:28 Sodium 139 Potassium 4.1 Chloride 103 Carbon Dioxide 27 Anion Gap 11 L BUN 17 H Creatinine 0.87 Estim Creat Clear Calc 93.3 Estimated GFR > 60 POC Glucose 138 H Fasting Glucose 157 H Estimat Average Glucose 103 Hemoglobin A1c % 5.2 Calcium 9.3 Total Bilirubin 0.4 AST 19 ALT 19 Alkaline Phosphatase 76 Total Protein 7.0 Albumin 3.8 Triglycerides 115 Cholesterol 118 LDL Cholesterol, Calc 66 HDL Cholesterol 29 L Vitamin B12 293 Folate 7.1 TSH 12.60 H Free T4 1.01 Medications Medications Current Medications Acetaminophen (Acetaminophen 325 Mg Tablet) 650 mg PO Q6H PRN PRN Reason: Headache/Pain Mild Scale (1-3) Al Hydroxide/Mg Hydroxide (Magnesium Hydrox/Alum Hydrox 30 Ml Oral.Susp) 30 ml PO Q6H PRN PRN Reason: Heartburn/Nausea Albuterol Sulfate (Albuterol Sulfate 90 Mcg 8 Gm Inhaler) 2 puff INHALE Q4H PRN PRN Reason: Wheezing Clonazepam (Clonazepam 0.5 Mg Tablet) 0.5 mg PO TID PRN PRN Reason: anxiety attack Last Admin: 02/02/24 17:47 Dose: 0.5 mg Empagliflozin (Empagliflozin 10 Mg Tablet) 10 mg PO DAILY [facility] Last Admin: 02/03/24 08:06 Dose: 10 mg Famotidine (Famotidine 20 Mg Tablet) 40 mg PO BEDTIME [facility] Last Admin: 02/02/24 20:23 Dose: 40 mg Gabapentin (Gabapentin 600 Mg Tablet) 600 mg PO TID [facility] Last Admin: 02/03/24 14:57 Dose: 600 mg Hydroxyzine HCl (Hydroxyzine Hcl 25 Mg Tablet) 25 mg PO Q6H PRN PRN Reason: Anxiety Last Admin: 02/02/24 20:23 Dose: 25 mg Loperamide HCl (Loperamide Hcl 2 Mg Capsule) 8 mg PO DAILY PRN PRN Reason: Loose Stool Last Admin: 02/03/24 14:56 Dose: 8 mg Loratadine (Loratadine 10 Mg Tablet) 10 mg PO DAILY [facility] Last Admin: 02/03/24 08:06 Dose: 10 mg Magnesium Hydroxide (Milk Of Magnesia 30 Ml Oral.Susp) 30 ml PO DAILY PRN PRN Reason: Constipation Metoclopramide HCl (Metoclopramide Hcl 10 Mg Tablet) 10 mg PO TIDAC [facility] Last Admin: 02/03/24 11:36 Dose: 10 mg Nicotine Polacrilex (Nicotine Polacrilex 2 Mg Gum) 4 mg BUCCAL Q2H PRN PRN Reason: Nicotine Cravings Ondansetron HCl (Ondansetron Odt 4 Mg Tab.Rapdis) 4 mg TRANSLINGU TID PRN PRN Reason: nausea/vomiting Last Admin: 02/01/24 21:05 Dose: 4 mg Paroxetine HCl (Paroxetine Hcl 30 Mg Tablet) 30 mg PO DAILY [facility] Last Admin: 02/03/24 08:07 Dose: 30 mg Tolterodine Tartrate (Tolterodine Tartrate La 4 Mg Cap.Er.24h) 4 mg PO DAILY [facility] Last Admin: 02/03/24 08:06 Dose: 4 mg Tramadol HCl (Tramadol Hcl 50 Mg Tablet) 50 mg PO Q6H PRN PRN Reason: Pain, Severe (Pain Scale 7-10) Last Admin: 02/03/24 08:07 Dose: 50 mg Trazodone HCl (Trazodone Hcl 50 Mg Tablet) 50 mg PO BEDTIME MRX1 PRN PRN Reason: Insomnia Verapamil HCl (Verapamil Hcl Sr 240 Mg Tablet.Er) 240 mg PO DAILY [facility]; Protocol Last Admin: 02/03/24 08:06 Dose: 240 mg Zolpidem Tartrate (Zolpidem Tartrate 5 Mg Tablet) 10 mg PO BEDTIME [facility] Last Admin: 02/02/24 23:37 Dose: Not Given Allergies Allergies Allergy/AdvReac Type Severity Reaction Status Date / Time cefuroxime [From CEFTIN] Allergy Severe HIVES Verified 01/31/24 17:49 Assessment & Plan Assessment & Plan (1) MDD (major depressive disorder), recurrent episode, moderate: Status: Acute Code(s): F33.1 - Major depressive disorder, recurrent, moderate Plan Patient is a 48-year-old female with history MDD who self presented to [facility] ER reporting increased depression, not getting out of bed, showering or taking her medications for the past 3 days. Plan: CV 15 minute safety checks Continue home medications Encourage groups Encourage importance of medication compliance Discharge planning 02/01 continue tx. loperamide for ibs/loose stools. 02/02 continue tx. Reason for continued inpatient stay Substantial Risk for: inability to function Time Spent With Patient Time: Total time managing care of this patient today ____ minutes.
[2024-02-03 19:34] LABS: Glucose, Whole Blood 116 mg/dL (60-115)
[2024-02-03] MEDS: Famotidine 20 MG TABLET 40 MG PO (19:49)
[2024-02-03] MEDS: Zolpidem Tartrate 5 MG TABLET 10 MG PO (19:49)
[2024-02-03 20:00] VITALS: BP 111/56; PULSE 81; RESP 18; TEMP 36.6; O2SAT 92
[2024-02-03 23:15] VITALS: RESP 18
[2024-02-04 07:32] VITALS: BP 110/55; PULSE 77; RESP 16; TEMP 36.6; O2SAT 93
[2024-02-04 08:22] VITALS: BP 110/55; PULSE 77
[2024-02-04] MEDS: PARoxetine HCL 30 MG TABLET PO (08:22)
[2024-02-04] MEDS: Loratadine 10 MG TABLET PO (08:22)
[2024-02-04] MEDS: Gabapentin 600 MG TABLET PO (08:22)
[2024-02-04] MEDS: Tolterodine Tartrate LA 4 MG CAP.ER.24H PO (08:22)
[2024-02-04] MEDS: VerapamiL HCL SR 240 MG TABLET.ER PO (08:22)
[2024-02-04] MEDS: Empagliflozin 10 MG TABLET PO (08:22)
[2024-02-04] MEDS: Metoclopramide HCl 10 MG TABLET PO ×3 (08:22→16:19)
[2024-02-04 08:33] LABS: Glucose, Whole Blood 105 mg/dL (60-115)
--- NOTE | 2024-02-04 12:54 | P.PNPSI_ITS ---
Subjective Subjective Date of Service: 02/04/24 Reason For Visit: Crisis Subjective Notes: Conditional Voluntary Interim History: Reviewed with Dr. Cooper. Pt reports feels that she is getting better ; pt stated, I'm trying to focus on my goals . Showered. She reports sleeping well. denies SI/HI/VH/AH. Pt requesting Gabapentin to be decreased, she believes it is causing her to be anxious. Dose decreased to Gabapentin 400mg PO TID; pt aware. Medication Compliance: Yes Side effects from medications: No Review of Systems Constitutional: Reports as per HPI Eyes: Reports as per HPI Reports as per HPI Cardiovascular: Reports as per HPI Respiratory: Reports as per HPI Gastrointestinal: Reports as per HPI Musculoskeletal: Reports as per HPI Skin/Breast: Reports as per HPI Reports as per HPI Psychiatric: Reports as per HPI Endocrine: Reports as per HPI Hematologic/Lymphatic: Reports as per HPI Allergic/Immunologic: Reports as per HPI Mental Status Exam Mental Status Exam Narrative: Pt is alert and oriented; behavior is cooperative and calm; dressed in casual attire; mood is described as anxious ; eye contact appropriate; Speech is normal rate, volume and not pressured; thought process is organized and goal directed; Thought content is on tx; otherwise pertinent to relevant topics and without any delusional content, paranoid ideations or grandiosity; denies SI/HI/VH/AH. Diagnostics Vital Signs (24Hr): Vital Signs - 24 hr 02/03/24 20:00 02/03/24 23:15 02/04/24 07:32 Temperature 97.9 F 97.9 F Pulse Rate 81 77 Respiratory Rate 18 18 16 Blood Pressure 111/56 L 110/55 L Pulse Oximetry 92 93 Oxygen Delivery Method Room Air Room Air 02/04/24 08:22 Temperature Pulse Rate 77 Respiratory Rate Blood Pressure 110/55 L Pulse Oximetry Oxygen Delivery Method BMI result Body Mass Index 49.8 Labs 01/31/24 18:15 02/03/24 09:28 Labs: Laboratory Results - last 48 hr 02/02/24 02/03/24 02/03/24 20:27 08:12 08:15 Sodium Potassium Chloride Carbon Dioxide Anion Gap BUN Creatinine Estim Creat Clear Calc Estimated GFR POC Glucose 139 H 138 H Fasting Glucose Estimat Average Glucose 103 Hemoglobin A1c % 5.2 Calcium Total Bilirubin AST ALT Alkaline Phosphatase Total Protein Albumin Triglycerides Cholesterol LDL Cholesterol, Calc HDL Cholesterol Vitamin B12 Folate TSH Free T4 02/03/24 02/03/24 02/04/24 09:28 19:29 08:27 Sodium 139 Potassium 4.1 Chloride 103 Carbon Dioxide 27 Anion Gap 11 L BUN 17 H Creatinine 0.87 Estim Creat Clear Calc 93.3 Estimated GFR > 60 POC Glucose 116 H 105 Fasting Glucose 157 H Estimat Average Glucose Hemoglobin A1c % Calcium 9.3 Total Bilirubin 0.4 AST 19 ALT 19 Alkaline Phosphatase 76 Total Protein 7.0 Albumin 3.8 Triglycerides 115 Cholesterol 118 LDL Cholesterol, Calc 66 HDL Cholesterol 29 L Vitamin B12 293 Folate 7.1 TSH 12.60 H Free T4 1.01 Medications Medications Current Medications Acetaminophen (Acetaminophen 325 Mg Tablet) 650 mg PO Q6H PRN PRN Reason: Headache/Pain Mild Scale (1-3) Al Hydroxide/Mg Hydroxide (Magnesium Hydrox/Alum Hydrox 30 Ml Oral.Susp) 30 ml PO Q6H PRN PRN Reason: Heartburn/Nausea Albuterol Sulfate (Albuterol Sulfate 90 Mcg 8 Gm Inhaler) 2 puff INHALE Q4H PRN PRN Reason: Wheezing Clonazepam (Clonazepam 0.5 Mg Tablet) 0.5 mg PO TID PRN PRN Reason: anxiety attack Last Admin: 02/02/24 17:47 Dose: 0.5 mg Empagliflozin (Empagliflozin 10 Mg Tablet) 10 mg PO DAILY [facility] Last Admin: 02/04/24 08:22 Dose: 10 mg Famotidine (Famotidine 20 Mg Tablet) 40 mg PO BEDTIME [facility] Last Admin: 02/03/24 19:49 Dose: 40 mg Gabapentin (Gabapentin 600 Mg Tablet) 600 mg PO TID [facility] Last Admin: 02/04/24 08:22 Dose: 600 mg Hydroxyzine HCl (Hydroxyzine Hcl 25 Mg Tablet) 25 mg PO Q6H PRN PRN Reason: Anxiety Last Admin: 02/02/24 20:23 Dose: 25 mg Loperamide HCl (Loperamide Hcl 2 Mg Capsule) 8 mg PO DAILY PRN PRN Reason: Loose Stool Last Admin: 02/03/24 14:56 Dose: 8 mg Loratadine (Loratadine 10 Mg Tablet) 10 mg PO DAILY [facility] Last Admin: 02/04/24 08:22 Dose: 10 mg Magnesium Hydroxide (Milk Of Magnesia 30 Ml Oral.Susp) 30 ml PO DAILY PRN PRN Reason: Constipation Metoclopramide HCl (Metoclopramide Hcl 10 Mg Tablet) 10 mg PO TIDAC [facility] Last Admin: 02/04/24 12:04 Dose: 10 mg Nicotine Polacrilex (Nicotine Polacrilex 2 Mg Gum) 4 mg BUCCAL Q2H PRN PRN Reason: Nicotine Cravings Ondansetron HCl (Ondansetron Odt 4 Mg Tab.Rapdis) 4 mg TRANSLINGU TID PRN PRN Reason: nausea/vomiting Last Admin: 02/01/24 21:05 Dose: 4 mg Paroxetine HCl (Paroxetine Hcl 30 Mg Tablet) 30 mg PO DAILY [facility] Last Admin: 02/04/24 08:22 Dose: 30 mg Tolterodine Tartrate (Tolterodine Tartrate La 4 Mg Cap.Er.24h) 4 mg PO DAILY [facility] Last Admin: 02/04/24 08:22 Dose: 4 mg Tramadol HCl (Tramadol Hcl 50 Mg Tablet) 50 mg PO Q6H PRN PRN Reason: Pain, Severe (Pain Scale 7-10) Last Admin: 02/03/24 19:50 Dose: 50 mg Trazodone HCl (Trazodone Hcl 50 Mg Tablet) 50 mg PO BEDTIME MRX1 PRN PRN Reason: Insomnia Verapamil HCl (Verapamil Hcl Sr 240 Mg Tablet.Er) 240 mg PO DAILY [facility]; Protocol Last Admin: 02/04/24 08:22 Dose: 240 mg Zolpidem Tartrate (Zolpidem Tartrate 5 Mg Tablet) 10 mg PO BEDTIME [facility] Last Admin: 02/03/24 19:49 Dose: 10 mg Allergies Allergies Allergy/AdvReac Type Severity Reaction Status Date / Time cefuroxime [From CEFTIN] Allergy Severe HIVES Verified 01/31/24 17:49 Assessment & Plan Assessment & Plan (1) MDD (major depressive disorder), recurrent episode, moderate: Status: Acute Code(s): F33.1 - Major depressive disorder, recurrent, moderate Plan Patient is a 48-year-old female with history MDD who self presented to [facility] ER reporting increased depression, not getting out of bed, showering or taking her medications for the past 3 days. Plan: CV 15 minute safety checks Continue home medications Encourage groups Encourage importance of medication compliance Discharge planning 02/01 continue tx. loperamide for ibs/loose stools. 02/02 continue tx. 02/03: Pt reports feels that she is getting better ; pt stated, I'm trying to focus on my goals . Showered. She reports sleeping well. denies SI/HI/VH/AH. Pt requesting Gabapentin to be decreased, she believes it is causing her to be anxious. Dose decreased to Gabapentin 400mg PO TID; pt aware. Patient educated on: diagnosis, medication risk/benefits and therapeutic strategies Reason for continued inpatient stay Substantial Risk for: med/psych decompensation Time Spent With Patient Time: Total time managing care of this patient today _20___ minutes.
[2024-02-04 13:07] LABS: COVID-19 Test Negative (Negative); IDNOW Serial# 58CA691E
[2024-02-04] MEDS: Gabapentin 400 MG CAPSULE PO ×2 (16:23→22:05)
[2024-02-04 20:00] VITALS: BP 104/56; PULSE 73; RESP 18; TEMP 36.5; O2SAT 95
[2024-02-04] MEDS: Zolpidem Tartrate 5 MG TABLET 10 MG PO (22:04)
[2024-02-04] MEDS: Famotidine 20 MG TABLET 40 MG PO (22:04)
[2024-02-04 22:18] LABS: Glucose, Whole Blood 120 mg/dL (60-115)
[2024-02-04] MEDS: traMADoL HCL 50 MG TABLET PO (22:28)
[2024-02-04 23:21] VITALS: RESP 18
[2024-02-05] MEDS: Acetaminophen 325 MG TABLET 650 MG PO ×2 (01:32→09:25)
[2024-02-05 07:57] LABS: Glucose, Whole Blood 98 mg/dL (60-115)
[2024-02-05 09:13] VITALS: BP 139/95; PULSE 92
[2024-02-05] MEDS: Metoclopramide HCl 10 MG TABLET PO ×3 (09:13→17:19)
[2024-02-05] MEDS: VerapamiL HCL SR 240 MG TABLET.ER PO (09:13)
[2024-02-05] MEDS: Tolterodine Tartrate LA 4 MG CAP.ER.24H PO (09:13)
[2024-02-05] MEDS: Loratadine 10 MG TABLET PO (09:14)
[2024-02-05] MEDS: PARoxetine HCL 30 MG TABLET PO (09:15)
[2024-02-05 09:17] VITALS: BP 139/95; PULSE 74; RESP 18; TEMP 36.6; O2SAT 93
[2024-02-05] MEDS: Empagliflozin 10 MG TABLET PO (09:25)
--- NOTE | 2024-02-05 09:46 | P.PNPSI_ITS ---
Subjective Subjective Date of Service: 02/05/24 Reason For Visit: Crisis Subjective Notes: Conditional Voluntary Interim History: Reviewed with Dr. Cooper. Pt reports feeling good and looking forward to going home ; pt stated, I have a big support system . denies SI/HI/VH/AH. Pt requesting Gabapentin to be discontinued; pt feels it is making her anxiety worse. Pt to be discharge home tomorrow. Patient plans on following up with her outpatient providers. Medication Compliance: Yes Side effects from medications: No Attending Groups: Yes Review of Systems Constitutional: Reports as per HPI Eyes: Reports as per HPI Reports as per HPI Cardiovascular: Reports as per HPI Respiratory: Reports as per HPI Gastrointestinal: Reports as per HPI Musculoskeletal: Reports as per HPI Skin/Breast: Reports as per HPI Reports as per HPI Psychiatric: Reports as per HPI Endocrine: Reports as per HPI Hematologic/Lymphatic: Reports as per HPI Allergic/Immunologic: Reports as per HPI Mental Status Exam Mental Status Exam Narrative: Pt is alert and oriented; behavior is cooperative and calm; dressed in casual attire; mood is described as good ; eye contact appropriate; Speech is normal rate, volume and not pressured; thought process is organized and goal directed; Thought content is on tx; otherwise pertinent to relevant topics and without any delusional content, paranoid ideations or grandiosity; denies SI/HI/VH/AH. Diagnostics Vital Signs (24Hr): Vital Signs - 24 hr 02/04/24 20:00 02/04/24 23:21 02/05/24 09:13 Temperature 97.7 F Pulse Rate 73 92 Respiratory Rate 18 18 Blood Pressure 104/56 L 139/95 H Pulse Oximetry 95 Oxygen Delivery Method Room Air 02/05/24 09:17 Temperature 97.8 F Pulse Rate 74 Respiratory Rate 18 Blood Pressure 139/95 H Pulse Oximetry 93 Oxygen Delivery Method Room Air BMI result Body Mass Index 49.8 Labs 01/31/24 18:15 02/03/24 09:28 Labs: Laboratory Results - last 48 hr 02/03/24 02/03/24 02/04/24 09:28 19:29 08:27 Sodium 139 Potassium 4.1 Chloride 103 Carbon Dioxide 27 Anion Gap 11 L BUN 17 H Creatinine 0.87 Estim Creat Clear Calc 93.3 Estimated GFR > 60 POC Glucose 116 H 105 Fasting Glucose 157 H Calcium 9.3 Total Bilirubin 0.4 AST 19 ALT 19 Alkaline Phosphatase 76 Total Protein 7.0 Albumin 3.8 Triglycerides 115 Cholesterol 118 LDL Cholesterol, Calc 66 HDL Cholesterol 29 L Vitamin B12 293 Folate 7.1 TSH 12.60 H Free T4 1.01 COVID-19 ([facility]) COVID-19 Clin Com 02/04/24 02/04/24 02/05/24 12:09 22:04 07:52 Sodium Potassium Chloride Carbon Dioxide Anion Gap BUN Creatinine Estim Creat Clear Calc Estimated GFR POC Glucose 120 H 98 Fasting Glucose Calcium Total Bilirubin AST ALT Alkaline Phosphatase Total Protein Albumin Triglycerides Cholesterol LDL Cholesterol, Calc HDL Cholesterol Vitamin B12 Folate TSH Free T4 COVID-19 ([facility]) Negative COVID-19 Clin Com See Note Medications Medications Current Medications Acetaminophen (Acetaminophen 325 Mg Tablet) 650 mg PO Q6H PRN PRN Reason: Headache/Pain Mild Scale (1-3) Last Admin: 02/05/24 09:25 Dose: 650 mg Al Hydroxide/Mg Hydroxide (Magnesium Hydrox/Alum Hydrox 30 Ml Oral.Susp) 30 ml PO Q6H PRN PRN Reason: Heartburn/Nausea Albuterol Sulfate (Albuterol Sulfate 90 Mcg 8 Gm Inhaler) 2 puff INHALE Q4H PRN PRN Reason: Wheezing Clonazepam (Clonazepam 0.5 Mg Tablet) 0.5 mg PO TID PRN PRN Reason: anxiety attack Last Admin: 02/02/24 17:47 Dose: 0.5 mg Empagliflozin (Empagliflozin 10 Mg Tablet) 10 mg PO DAILY [facility] Last Admin: 02/05/24 09:25 Dose: 10 mg Famotidine (Famotidine 20 Mg Tablet) 40 mg PO BEDTIME [facility] Last Admin: 02/04/24 22:04 Dose: 40 mg Gabapentin (Gabapentin 400 Mg Capsule) 400 mg PO TID [facility] Last Admin: 02/05/24 09:14 Dose: Not Given Hydroxyzine HCl (Hydroxyzine Hcl 25 Mg Tablet) 25 mg PO Q6H PRN PRN Reason: Anxiety Last Admin: 02/02/24 20:23 Dose: 25 mg Loperamide HCl (Loperamide Hcl 2 Mg Capsule) 8 mg PO DAILY PRN PRN Reason: Loose Stool Last Admin: 02/03/24 14:56 Dose: 8 mg Loratadine (Loratadine 10 Mg Tablet) 10 mg PO DAILY [facility] Last Admin: 02/05/24 09:14 Dose: 10 mg Magnesium Hydroxide (Milk Of Magnesia 30 Ml Oral.Susp) 30 ml PO DAILY PRN PRN Reason: Constipation Metoclopramide HCl (Metoclopramide Hcl 10 Mg Tablet) 10 mg PO TIDAC [facility] Last Admin: 02/05/24 09:13 Dose: 10 mg Nicotine Polacrilex (Nicotine Polacrilex 2 Mg Gum) 4 mg BUCCAL Q2H PRN PRN Reason: Nicotine Cravings Ondansetron HCl (Ondansetron Odt 4 Mg Tab.Rapdis) 4 mg TRANSLINGU TID PRN PRN Reason: nausea/vomiting Last Admin: 02/01/24 21:05 Dose: 4 mg Paroxetine HCl (Paroxetine Hcl 30 Mg Tablet) 30 mg PO DAILY [facility] Last Admin: 02/05/24 09:15 Dose: 30 mg Tolterodine Tartrate (Tolterodine Tartrate La 4 Mg Cap.Er.24h) 4 mg PO DAILY [facility] Last Admin: 02/05/24 09:13 Dose: 4 mg Tramadol HCl (Tramadol Hcl 50 Mg Tablet) 50 mg PO Q6H PRN PRN Reason: Pain, Severe (Pain Scale 7-10) Last Admin: 02/04/24 22:28 Dose: 50 mg Trazodone HCl (Trazodone Hcl 50 Mg Tablet) 50 mg PO BEDTIME MRX1 PRN PRN Reason: Insomnia Verapamil HCl (Verapamil Hcl Sr 240 Mg Tablet.Er) 240 mg PO DAILY [facility]; Protocol Last Admin: 02/05/24 09:13 Dose: 240 mg Zolpidem Tartrate (Zolpidem Tartrate 5 Mg Tablet) 10 mg PO BEDTIME [facility] Last Admin: 02/04/24 22:04 Dose: 10 mg Allergies Allergies Allergy/AdvReac Type Severity Reaction Status Date / Time cefuroxime [From CEFTIN] Allergy Severe HIVES Verified 01/31/24 17:49 Assessment & Plan Assessment & Plan (1) MDD (major depressive disorder), recurrent episode, moderate: Status: Acute Code(s): F33.1 - Major depressive disorder, recurrent, moderate Plan Patient is a 48-year-old female with history MDD who self presented to [facility] [place] [facility] reporting increased depression, not getting out of bed, showering or taking her medications for the past 3 days. Plan: CV 15 minute safety checks Continue home medications Encourage groups Encourage importance of medication compliance Discharge planning 02/01 continue tx. loperamide for ibs/loose stools. 02/02 continue tx. 02/03: Pt reports feels that she is getting better ; pt stated, I'm trying to focus on my goals . Showered. She reports sleeping well. denies SI/HI/VH/AH. Pt requesting Gabapentin to be decreased, she believes it is causing her to be anxious. Dose decreased to Gabapentin 400mg PO TID; pt aware. 02/04: Pt reports feeling good and looking forward to going home ; pt stated, I have a big support system . denies SI/HI/VH/AH. Pt requesting Gabapentin to be discontinued; pt feels it is making her anxiety worse. Pt to be discharge home tomorrow. Patient plans on following up with her outpatient providers. Patient educated on: diagnosis, medication risk/benefits and therapeutic strategies Reason for continued inpatient stay Substantial Risk for: stable for discharge Time Spent With Patient Time: Total time managing care of this patient today _20___ minutes.
[2024-02-05] MEDS: clonazePAM 0.5 MG TABLET PO (15:26)
[2024-02-05] MEDS: Loperamide HCl 2 MG CAPSULE 8 MG PO (15:26)
[2024-02-05] MEDS: Ondansetron ODT 4 MG TAB.RAPDIS TRANSLINGU (15:43)
[2024-02-05 20:05] VITALS: BP 132/83; PULSE 77; RESP 18; TEMP 36.8; O2SAT 96
[2024-02-05] MEDS: Famotidine 20 MG TABLET 40 MG PO (21:24)
[2024-02-05] MEDS: Zolpidem Tartrate 5 MG TABLET 10 MG PO (21:24)
[2024-02-05 21:41] LABS: Glucose, Whole Blood 126 mg/dL (60-115)
[2024-02-06 07:35] VITALS: BP 130/71; PULSE 73; RESP 16; TEMP 36.7; O2SAT 94
[2024-02-06 07:53] LABS: Glucose, Whole Blood 112 mg/dL (60-115)
[2024-02-06 08:28] VITALS: BP 139/81; PULSE 76
[2024-02-06] MEDS: VerapamiL HCL SR 240 MG TABLET.ER PO (08:28)
[2024-02-06] MEDS: Empagliflozin 10 MG TABLET PO (08:32)
[2024-02-06] MEDS: Loratadine 10 MG TABLET PO (08:32)
[2024-02-06] MEDS: Metoclopramide HCl 10 MG TABLET PO (08:32)
[2024-02-06] MEDS: PARoxetine HCL 30 MG TABLET PO (08:32)
[2024-02-06] MEDS: Tolterodine Tartrate LA 4 MG CAP.ER.24H PO (08:32)
--- NOTE | 2024-02-06 08:59 | P.DS_ITS ---
DS: Providers Provider Date of Service: 02/06/24 Date of admission: 02/01/24 10:25 Date of discharge: 02/06/24 Primary care physician: Daija Parry DO Admitting clinician: Randee Blair Attending physician on admission: Jimbo Cooper Attending physician on discharge: Garry Roger Discharging clinician: Randee Blair DS: Diagnosis Discharge Diagnosis (1) MDD (major depressive disorder), recurrent episode, moderate: Status: Acute DS: Medications Discharge Medications Home Medications: Home Medications ?Medication ?Instructions ?Recorded ?Confirmed empagliflozin 10 mg tablet 10 mg PO QAM 01/31/24 01/31/24 (Jardiance) ondansetron HCl 4 mg tablet 4 mg PO TID PRN nausea/vomiting 01/31/24 01/31/24 solifenacin 5 mg tablet 10 mg PO QAM 01/31/24 01/31/24 tramadol 50 mg tablet 50 mg PO Q6H PRN severe pain 01/31/24 01/31/24 verapamil 240 mg 24 hr 240 mg PO QAM 01/31/24 01/31/24 capsule,extended release Previous Rx's ?Medication ?Instructions ?Recorded albuterol sulfate 90 mcg/actuation 2 puff inhalation Q4-6H PRN 02/05/24 aerosol inhaler (Ventolin HFA) wheezing 30 days #6.7 grams clonazepam 0.5 mg tablet 0.5 mg PO TID PRN anxiety attack 02/05/24 30 days #90 tabs famotidine 40 mg tablet 40 mg PO BEDTIME 30 days #30 tabs 02/05/24 gabapentin 400 mg capsule 400 mg PO TID 30 days #90 caps 02/05/24 loperamide 2 mg capsule 8 mg (4 x 2 mg) PO DAILY PRN Loose 02/05/24 Stool #0 caps loratadine 10 mg tablet 10 mg PO DAILY 30 days #30 tabs 02/05/24 metoclopramide HCl 10 mg tablet 10 mg PO TIDAC #0 tabs 02/05/24 paroxetine HCl 30 mg tablet 30 mg PO DAILY 30 days #30 tabs 02/05/24 zolpidem 10 mg tablet 10 mg PO BEDTIME 30 days #30 tabs 02/05/24 Mental Status Exam Mental Status Exam Narrative: Pt is alert and oriented; behavior is cooperative and calm; dressed in casual attire; mood is described as good ; eye contact appropriate; Speech is normal rate, volume and not pressured; thought process is organized and goal directed; Thought content is on tx; otherwise pertinent to relevant topics and without any delusional content, paranoid ideations or grandiosity; denies SI/HI/VH/AH. Data Data Completed and Pending Completed studies during hospitalization [Text1]: 01/31/24 01/31/24 01/31/24 18:15 19:31 23:14 WBC 8.7 RBC 5.05 Hgb 15.6 Hct 44.0 MCV 87.1 MCH 30.9 MCHC 35.5 H RDW 12.6 Plt Count 243 MPV 9.0 L Immature Gran % (Auto) 0.2 Neut % (Auto) 69.7 Lymph % (Auto) 19.4 L Gila % (Auto) 10.4 Eos % (Auto) 0.2 Baso % (Auto) 0.1 Lymph # (Auto) 1.7 Gila # (Auto) 0.9 Eos # (Auto) 0.0 Baso # (Auto) 0.0 Abs Immat Gran (auto) 0.02 Absolute Neuts (auto) 6.1 Absolute Nucleated RBC 0.000 Nucleated RBC % (auto) 0.0 Sodium 138 Potassium 3.6 Chloride 101 Carbon Dioxide 28 Anion Gap 13 BUN 11 Creatinine 0.77 Estim Creat Clear Calc 106.3 Estimated GFR > 60 POC Glucose 113 Random Glucose 110 Fasting Glucose Estimat Average Glucose Hemoglobin A1c % Calcium 9.7 Total Bilirubin 0.8 AST 21 ALT 21 Alkaline Phosphatase 63 Total Protein 7.7 Albumin 4.1 Triglycerides Cholesterol LDL Cholesterol, Calc HDL Cholesterol Vitamin B12 Folate TSH Free T4 1.09 TSH 3rd Generation 3.10 Urine Color Dark Yellow Urine Appearance Clear Urine pH 6.0 Ur Specific [place] >= 1.030 H Urine Protein 30 (1+) H Urine Glucose (UA) Negative Urine Ketones 15 Urine Blood Negative Urine Nitrite Negative Ur Leukocyte Esterase Trace H Urine RBC 0-2 Urine WBC 0-5 Ur Squamous Epith Cells 11-20 Urine Bacteria 2+ Hyaline Casts 3-5 Urine Test NEGATIVE Salicylates < 5.0 L Urine Opiates Screen Not Detected Ur Buprenorphine Scrn Not Detected Ur Oxycodone Screen Not Detected Urine Methadone Screen Not Detected Urine Fentanyl Screen Not Detected Acetaminophen < 3 Ur Barbiturates Screen Not Detected Ur Phencyclidine Scrn Not Detected Ur Amphetamines Screen Not Detected U Benzodiazepines Scrn Not Detected Urine Cocaine Screen Not Detected U Marijuana (THC) Screen Not Detected Ethyl Alcohol < 10 COVID-19 (JARRELL) COVID-19 Clin Com Influenza Type A (PCR) NEGATIVE Influenza Type B (PCR) NEGATIVE RSV RNA Qual (PCR) NEGATIVE SARS-CoV-2 RNA (RT-PCR) NEGATIVE 02/01/24 02/01/24 02/02/24 05:47 21:13 07:50 WBC RBC Hgb Hct MCV MCH MCHC RDW Plt Count MPV Immature Gran % (Auto) Neut % (Auto) Lymph % (Auto) Gila % (Auto) Eos % (Auto) Baso % (Auto) Lymph # (Auto) Gila # (Auto) Eos # (Auto) Baso # (Auto) Abs Immat Gran (auto) Absolute Neuts (auto) Absolute Nucleated RBC Nucleated RBC % (auto) Sodium Potassium Chloride Carbon Dioxide Anion Gap BUN Creatinine Estim Creat Clear Calc Estimated GFR POC Glucose 105 156 H 110 Random Glucose Fasting Glucose Estimat Average Glucose Hemoglobin A1c % Calcium Total Bilirubin AST ALT Alkaline Phosphatase Total Protein Albumin Triglycerides Cholesterol LDL Cholesterol, Calc HDL Cholesterol Vitamin B12 Folate TSH Free T4 TSH 3rd Generation Urine Color Urine Appearance Urine pH Ur Specific [place] Urine Protein Urine Glucose (UA) Urine Ketones Urine Blood Urine Nitrite Ur Leukocyte Esterase Urine RBC Urine WBC Ur Squamous Epith Cells Urine Bacteria Hyaline Casts Urine Test Salicylates Urine Opiates Screen Ur Buprenorphine Scrn Ur Oxycodone Screen Urine Methadone Screen Urine Fentanyl Screen Acetaminophen Ur Barbiturates Screen Ur Phencyclidine Scrn Ur Amphetamines Screen U Benzodiazepines Scrn Urine Cocaine Screen U Marijuana (THC) Screen Ethyl Alcohol COVID-19 (JARRELL) COVID-19 Clin Com Influenza Type A (PCR) Influenza Type B (PCR) RSV RNA Qual (PCR) SARS-CoV-2 RNA (RT-PCR) 02/02/24 02/03/24 02/03/24 20:27 08:12 08:15 WBC RBC Hgb Hct MCV MCH MCHC RDW Plt Count MPV Immature Gran % (Auto) Neut % (Auto) Lymph % (Auto) Gila % (Auto) Eos % (Auto) Baso % (Auto) Lymph # (Auto) Gila # (Auto) Eos # (Auto) Baso # (Auto) Abs Immat Gran (auto) Absolute Neuts (auto) Absolute Nucleated RBC Nucleated RBC % (auto) Sodium Potassium Chloride Carbon Dioxide Anion Gap BUN Creatinine Estim Creat Clear Calc Estimated GFR POC Glucose 139 H 138 H Random Glucose Fasting Glucose Estimat Average Glucose 103 Hemoglobin A1c % 5.2 Calcium Total Bilirubin AST ALT Alkaline Phosphatase Total Protein Albumin Triglycerides Cholesterol LDL Cholesterol, Calc HDL Cholesterol Vitamin B12 Folate TSH Free T4 TSH 3rd Generation Urine Color Urine Appearance Urine pH Ur Specific [place] Urine Protein Urine Glucose (UA) Urine Ketones Urine Blood Urine Nitrite Ur Leukocyte Esterase Urine RBC Urine WBC Ur Squamous Epith Cells Urine Bacteria Hyaline Casts Urine Test Salicylates Urine Opiates Screen Ur Buprenorphine Scrn Ur Oxycodone Screen Urine Methadone Screen Urine Fentanyl Screen Acetaminophen Ur Barbiturates Screen Ur Phencyclidine Scrn Ur Amphetamines Screen U Benzodiazepines Scrn Urine Cocaine Screen U Marijuana (THC) Screen Ethyl Alcohol COVID-19 (JARRELL) COVID-19 Clin Com Influenza Type A (PCR) Influenza Type B (PCR) RSV RNA Qual (PCR) SARS-CoV-2 RNA (RT-PCR) 02/03/24 02/03/24 02/04/24 09:28 19:29 08:27 WBC RBC Hgb Hct MCV MCH MCHC RDW Plt Count MPV Immature Gran % (Auto) Neut % (Auto) Lymph % (Auto) Gila % (Auto) Eos % (Auto) Baso % (Auto) Lymph # (Auto) Gila # (Auto) Eos # (Auto) Baso # (Auto) Abs Immat Gran (auto) Absolute Neuts (auto) Absolute Nucleated RBC Nucleated RBC % (auto) Sodium 139 Potassium 4.1 Chloride 103 Carbon Dioxide 27 Anion Gap 11 L BUN 17 H Creatinine 0.87 Estim Creat Clear Calc 93.3 Estimated GFR > 60 POC Glucose 116 H 105 Random Glucose Fasting Glucose 157 H Estimat Average Glucose Hemoglobin A1c % Calcium 9.3 Total Bilirubin 0.4 AST 19 ALT 19 Alkaline Phosphatase 76 Total Protein 7.0 Albumin 3.8 Triglycerides 115 Cholesterol 118 LDL Cholesterol, Calc 66 HDL Cholesterol 29 L Vitamin B12 293 Folate 7.1 TSH 12.60 H Free T4 1.01 TSH 3rd Generation Urine Color Urine Appearance Urine pH Ur Specific [place] Urine Protein Urine Glucose (UA) Urine Ketones Urine Blood Urine Nitrite Ur Leukocyte Esterase Urine RBC Urine WBC Ur Squamous Epith Cells Urine Bacteria Hyaline Casts Urine Test Salicylates Urine Opiates Screen Ur Buprenorphine Scrn Ur Oxycodone Screen Urine Methadone Screen Urine Fentanyl Screen Acetaminophen Ur Barbiturates Screen Ur Phencyclidine Scrn Ur Amphetamines Screen U Benzodiazepines Scrn Urine Cocaine Screen U Marijuana (THC) Screen Ethyl Alcohol COVID-19 (JARRELL) COVID-19 Clin Com Influenza Type A (PCR) Influenza Type B (PCR) RSV RNA Qual (PCR) SARS-CoV-2 RNA (RT-PCR) 02/04/24 02/04/24 02/05/24 12:09 22:04 07:52 WBC RBC Hgb Hct MCV MCH MCHC RDW Plt Count MPV Immature Gran % (Auto) Neut % (Auto) Lymph % (Auto) Gila % (Auto) Eos % (Auto) Baso % (Auto) Lymph # (Auto) Gila # (Auto) Eos # (Auto) Baso # (Auto) Abs Immat Gran (auto) Absolute Neuts (auto) Absolute Nucleated RBC Nucleated RBC % (auto) Sodium Potassium Chloride Carbon Dioxide Anion Gap BUN Creatinine Estim Creat Clear Calc Estimated GFR POC Glucose 120 H 98 Random Glucose Fasting Glucose Estimat Average Glucose Hemoglobin A1c % Calcium Total Bilirubin AST ALT Alkaline Phosphatase Total Protein Albumin Triglycerides Cholesterol LDL Cholesterol, Calc HDL Cholesterol Vitamin B12 Folate TSH Free T4 TSH 3rd Generation Urine Color Urine Appearance Urine pH Ur Specific [place] Urine Protein Urine Glucose (UA) Urine Ketones Urine Blood Urine Nitrite Ur Leukocyte Esterase Urine RBC Urine WBC Ur Squamous Epith Cells Urine Bacteria Hyaline Casts Urine Test Salicylates Urine Opiates Screen Ur Buprenorphine Scrn Ur Oxycodone Screen Urine Methadone Screen Urine Fentanyl Screen Acetaminophen Ur Barbiturates Screen Ur Phencyclidine Scrn Ur Amphetamines Screen U Benzodiazepines Scrn Urine Cocaine Screen U Marijuana (THC) Screen Ethyl Alcohol COVID-19 (JARRLEL) Negative COVID-19 Clin Com See Note Influenza Type A (PCR) Influenza Type B (PCR) RSV RNA Qual (PCR) SARS-CoV-2 RNA (RT-PCR) 02/05/24 02/06/24 21:36 07:43 WBC RBC Hgb Hct MCV MCH MCHC RDW Plt Count MPV Immature Gran % (Auto) Neut % (Auto) Lymph % (Auto) Gila % (Auto) Eos % (Auto) Baso % (Auto) Lymph # (Auto) Gila # (Auto) Eos # (Auto) Baso # (Auto) Abs Immat Gran (auto) Absolute Neuts (auto) Absolute Nucleated RBC Nucleated RBC % (auto) Sodium Potassium Chloride Carbon Dioxide Anion Gap BUN Creatinine Estim Creat Clear Calc Estimated GFR POC Glucose 126 H 112 Random Glucose Fasting Glucose Estimat Average Glucose Hemoglobin A1c % Calcium Total Bilirubin AST ALT Alkaline Phosphatase Total Protein Albumin Triglycerides Cholesterol LDL Cholesterol, Calc HDL Cholesterol Vitamin B12 Folate TSH Free T4 TSH 3rd Generation Urine Color Urine Appearance Urine pH Ur Specific [place] Urine Protein Urine Glucose (UA) Urine Ketones Urine Blood Urine Nitrite Ur Leukocyte Esterase Urine RBC Urine WBC Ur Squamous Epith Cells Urine Bacteria Hyaline Casts Urine Test Salicylates Urine Opiates Screen Ur Buprenorphine Scrn Ur Oxycodone Screen Urine Methadone Screen Urine Fentanyl Screen Acetaminophen Ur Barbiturates Screen Ur Phencyclidine Scrn Ur Amphetamines Screen U Benzodiazepines Scrn Urine Cocaine Screen U Marijuana (THC) Screen Ethyl Alcohol COVID-19 (JARRELL) COVID-19 Clin Com Influenza Type A (PCR) Influenza Type B (PCR) RSV RNA Qual (PCR) SARS-CoV-2 RNA (RT-PCR) DS: Summary Hospital Course Hospital Course: Patient is a 48-year-old female with history MDD who self presented to [facility] reporting increased depression, not getting out of bed, showering or taking her medications for the past 3 days. Per crisis report, patient reports feeling weak, and not being able to eat. Patient reports worsening depression and is unsure what is causing this. Patien t reports thoughts of hopelessness which results in her isolating and not taking care of her ADLs. Patient sees Dr. Lauren Cheng for psychiatry. Patient reports being hospitalized on an inpatient psychiatric unit in [place] about 14 years ago with a similar presentation. During admission assessment, patient presents alert and oriented x3. Calm and cooperative. Patient reports feeling depressed ; patient stated, I suffer from depression. For the past couple of months I'm always tired. I have been sleeping straight for the past 3 days and would only wake up to go to the bathroom . Patient denies SI/HI/VH/AH. Patient denies history of SIB/SA. Patient reports having outpatient psychiatric providers through [facility]. Patient reports smoking marijuana occasionally; denies any other substance use. Utox negative. Plan: CV 15 minute safety checks Continue home medications Encourage groups Encourage importance of medication compliance Discharge planning continue tx. loperamide for ibs/loose stools. Pt reports feels that she is getting better ; pt stated, I'm trying to focus on my goals . Showered. She reports sleeping well. denies SI/HI/VH/AH. Pt requ esting Gabapentin to be decreased, she believes it is causing her to be anxious. Dose decreased to Gabapentin 400mg PO TID; pt aware. Pt reports feeling good and looking forward to going home ; pt stated, I have a big support system . denies SI/HI/VH/AH. Pt requesting Gabapentin to be discontinued; pt feels it is making her anxiety worse. Pt to be discharge home tomorrow. Patient plans on following up with her outpatient providers. Patient reports feeling good and thinking positive thoughts ; pt reports she plans on following up with outpatient providers. denies SI/HI/VH/AH. Time spent discussing smoking cessation with patient: 3 to 10 minutes Status at Discharge Cognitive/behavioral status at discharge: Patient was interviewed prior to discharge and found to be fully oriented and without SI or HI. Patient has insight and demonstrates good judgment in terms of wanting to pursue treatment. Patient has a safety plan that includes presenting to the closest ER or calling 911 if feeling unsafe. Functional status at discharge: independent ambulation Overall status at discharge: patient is back to baseline Time Spent with Patient Time attestation: Total time managing care of this patient today _20___ minutes. Time spent: Less than 30 minutes Discharge Plan Discharge Anticipated Discharge Date/Time: 02/06/24 10:30 Patient Disposition: Home, Self-Care Discharge Diagnosis: MDD Referrals: Catherine Carpio ([facility] therapist) [Other] - 02/07/24 2:00 pm (In person appointment) Lauren Richards ([facility] psychiatrist) [Other] - 02/11/24 2:40 pm (telehealth appointment) Daija Parry DO [Primary Care Provider] - 1 Week (Your follow up appt has been scheduled with Dr. Leiva at [facility] for 02-21-24 @ 10:45am) Discharge Medications: New loratadine 10 mg Tablet 10 mg PO DAILY 30 Days Qty: 30 0RF paroxetine HCl 30 mg Tablet 30 mg PO DAILY 30 Days Qty: 30 0RF loperamide 2 mg Capsule 8 mg PO DAILY PRN (Reason: Loose Stool) Qty: 0 0RF metoclopramide HCl 10 mg Tablet 10 mg PO TIDAC Qty: 0 0RF gabapentin 400 mg Capsule 400 mg PO TID 30 Days Qty: 90 0RF Continued tramadol 50 mg tablet 50 mg PO Q6H PRN (Reason: severe pain) Jardiance 10 mg tablet 10 mg PO QAM ondansetron HCl 4 mg tablet 4 mg PO TID PRN (Reason: nausea/vomiting) verapamil 240 mg capsule,ext rel. pellets 24 hr 240 mg PO QAM solifenacin 5 mg tablet 10 mg PO QAM famotidine 40 mg tablet 40 mg PO BEDTIME 30 Days Qty: 30 0RF clonazepam 0.5 mg tablet 0.5 mg PO TID PRN (Reason: anxiety attack) 30 Days Qty: 90 0RF zolpidem 10 mg tablet 10 mg PO BEDTIME 30 Days Qty: 30 0RF albuterol sulfate [Ventolin HFA] 90 mcg/actuation HFA aerosol inhaler 2 puff INHALATION Q4-6H PRN (Reason: wheezing) 30 Days Qty: 6.7 0RF Discontinued gabapentin 600 mg tablet 600 mg PO TID paroxetine HCl 30 mg tablet 30 mg PO QAM loratadine 10 mg tablet 10 mg PO QAM Discharge Orders: Discharge Order (Routine); Ordered 02/06/24 Ordered By: Randee Blair Diet: Regular diet Activity on Discharge: As tolerated Stand Alone Forms: Patient Portal Discharge page, Community Support Print Language: Kazakh Care Plan Goals: Maintain mood and safe behaviors Take medications as prescribed Practice coping skills Continue with outpatient providers and reach out to them as needed Health Concerns: Mood stability and behaviors Plan of Treatment: Follow up with your PCP, psychiatric provider and other outpatient providers regarding above concerns Take medications as prescribed Assessment: Patient was interviewed prior to discharge and found to be fully oriented and without SI or HI. Patient has insight and demonstrates good judgment in terms of wanting to pursue treatment. Patient has a safety plan that includes presenting to the closest ER or calling 911 if feeling unsafe.
[2024-02-06] MEDS: clonazePAM 0.5 MG TABLET PO (09:45)
[2024-02-06] MEDS: Ondansetron ODT 4 MG TAB.RAPDIS TRANSLINGU (09:45)
--- NOTE | 2024-02-06 10:54 | PC.NURSE ---
Patient easily engaged. Reports feeling ready for discharge. Reports mood has improved, mild anxiety. Denies depression or sadness, denies SI/HI. Denies perceptual disturbances, no overt psychosis or expressed delusions. Discharge paperwork reviewed, verbalized understanding. Follow up appointments reviewed, reports understanding. Medications reviewed reports understanding. Crisis information provided to patient. All belongings taken with patient.
== END 2024-02-06 10:45 | disposition home or self-care (01) | DRG 885 ==
LOC: HO.ED 02-01 01:55 → HO.PADLT16 02-01 11:00
PROVIDERS: Physician Assistant; Social Worker; Admitting Provider Registered Nurse; Emergency Provider Emergency Medicine; PCP Family Medicine; Responsible Provider Registered Nurse; Visit Provider Psychiatry & Neurology Psychiatry
DX: F33.1 Major depressive disorder, recurrent, moderate (principal); Z20.822 Contact with and (suspected) exposure to COVID-19; Z79.899 Other long term (current) drug therapy
CPT/HCPCS: 0241U; 36415; 80053; 80061; 80143; 80179; 80307; 81001; 81025; 82607; 82746; 82947; 83036; 84439; 84443; 85025; 87635; 93005; 94660; 99284; S9485

== ENCOUNTER → 2024-01-31 17:47 | Outpatient (BNV) | payer OTHER, SELFPAY | PROVIDERS: Admitting Provider Registered Nurse; Emergency Provider Emergency Medicine; PCP Family Medicine; Responsible Provider Registered Nurse; Visit Provider Internal Medicine Cardiovascular Disease | DX: R42 Dizziness and giddiness (principal) | CPT/HCPCS: 93010 ==

== ENCOUNTER → 2024-02-01 10:25 | Outpatient (BNV) | payer OTHER, SELFPAY | PROVIDERS: Admitting Provider Registered Nurse; Emergency Provider Emergency Medicine; PCP Family Medicine; Responsible Provider Registered Nurse; Visit Provider Registered Nurse | DX: F33.1 Major depressive disorder, recurrent, moderate (principal) | CPT/HCPCS: 90792; 99231; 99232; 99238 ==

== ENCOUNTER 2024-02-13 14:21 | Outpatient (AMB) | payer OTHER, SELFPAY ==
--- NOTE | 2024-02-13 14:15 | A.OFFVIS_ITS ---
Intake Visit Reasons: Asthma Allergies cefuroxime [From CEFTIN] Allergy (Severe, Verified 01/31/24 17:49) HIVES HPI HPI Asthma: Details: Shereen is a pleasant 48 year old female, never smoker, with underlying asthma, morbid obesity and AISHWARYA on CPAP therapy. She continues to report moderate control on current regimen of singulair, and Asmanex 100 mcg. She does report that she has been recently admitted to [facility] secondary to depression and feels her persistent fatigue and nonrestorative sleep is related to that. At the last visit, her CPAP pressure was changed to 13 and has been reportedly using consistently, however unable to obtain compliance report. She notes that PCP is sending for cardiac evaluation for ongoing dyspnea. [facility] Medical History Disc degeneration, lumbar Nausea and vomiting Left forearm pain Patellofemoral arthralgia of right knee Urinary frequency Fungal infection of skin of abdomen Greater trochanteric bursitis of right hip Greater trochanteric bursitis of left hip Family history of colon cancer Daytime somnolence Morning headache Pre-op examination Asthma Diabetes mellitus Obstructive sleep apnea Hypothyroidism Hypertension GERD (gastroesophageal reflux disease) Diabetes Hirsutism Varicose veins with pain Restless leg syndrome Congenital pulmonary arteriovenous malformation Urinary retention Epicondylitis, lateral Interstitial cystitis Spinal stenosis of lumbar region Chronic pain syndrome Spondylosis, lumbar, with myelopathy Morbid obesity due to excess calories Arthritis Fibromyalgia Migraines Hypothyroid Restrictive lung disease Allergic rhinitis AISHWARYA on CPAP Surgical History Hx of spinal surgery Hx of cystoscopy Hx of colonoscopy History of esophagogastroduodenoscopy (EGD) Family History Father Alcoholism Mother Leukemia Maternal Aunt Breast cancer Sister Depression Vertigo Family/Other Heart problem Diabetes Cancer Brother Atherosclerotic cardiovascular disease Cardiomegaly Social History Household Members: Family Household Members Other:: Niece and great nieces and nephews Housing: Apartment Are you a primary healthcare science specialist to a significant other at home: No Do you presently have visiting nurse or other home services: No 75 years or older and lives alone: No Alcohol intake: never Comment: NONE Patient Tobacco Use Status: Never used Tobacco e-Cigarette/Vaping Use: Never Used Second Hand Smoke Exposure: No Substance Use Type: Marijuana service: No Current occupational status: disabled 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 Sexual orientation: Decline to Answer Review of Systems Const All systems reviewed & are unremarkable except as noted in HPI and below Physical Exam Const General: cooperative and no acute distress Orientation/consciousness: patient oriented x3 Resp Effort & Inspection: normal respiratory effort, able to speak in complete sentences and no audible wheezes Neuro General: patient oriented x3 Psych Mental Status: mental status grossly normal Speech and movement: Clear speech present Attitude: cooperative Thought process: Normal thought process present Thought content: Normal thought content present Insight: Good insight present (Psych) Judgement: Good judgement present (Psych) Telehealth Telehealth Telehealth Platform: Telephone Location of provider rendering services: practice address Location of patient: address on file Patient Identification confirmed using: Name, : Yes Telehealth method: voice only Patient verbally consented to treatment: Yes Patient verbally consented to billing insurance company: Yes Patient informed of any privacy concerns related to visit: Yes Assessment & Plan Assessment & Plan (1) Obstructive sleep apnea: Comment: on Bipap Code(s): G47.33 - Obstructive sleep apnea (adult) (pediatric) Category: Medical (2) Nocturnal hypoxemia: Code(s): G47.34 - Idiopathic sleep related nonobstructive alveolar hypoventilation Category: Medical (3) Daytime somnolence: Code(s): R40.0 - Somnolence Category: Medical Plan At this time patient reports moderate control of respiratory symptoms, however continues with dyspnea. Her PFT was suggestive of restrictive defect which may be contributing to continued dyspnea. She will be undergoing cardiac evaluation to assess for alternate causes of dyspnea. Advised to continue current regimen until cardiology work up. Will attempt to reach out to [facility] to review compliance report. All questions were answered and patient is in agreement of mag marques. Will follow up in 3 months or sooner if needed. Scribe Plan - Not visible on output: I spent 12 minutes speaking with the patient on the phone plus an additional 10 minutes reviewing and updating records for a total of 22 minutes Coding Level of Care Code Tele Est Pt Level 4 (26288) Diagnoses Obstructive sleep apnea G47.33 Nocturnal hypoxemia G47.34 Daytime somnolence R40.0
== END 2024-02-13 14:40 | disposition home or self-care (01) ==
LOC: HO.HPSW 14:22
PROVIDERS: PCP Family Medicine; Visit Provider Nurse Practitioner Family
DX: G47.33 Obstructive sleep apnea (adult) (pediatric) (principal); G47.34 Idiopathic sleep related nonobstructive alveolar hypoventilation
CPT/HCPCS: 99442

== ENCOUNTER 2024-02-14 12:02 | Outpatient (REF) | payer OTHER, SELFPAY ==
--- NOTE | ~2024-02-14 | MM_ITS ---
EXAMINATION: MM SCREENING DIGITAL BREAST TOMOSYNTHESIS, BILATERAL CLINICAL INFORMATION: Screening. Asymptomatic. COMPARISON: Mammography: Comparison is made with available priors TECHNIQUE: Digital breast mammography with tomosynthesis is performed in both the craniocaudal and mediolateral oblique views along with computer-aided detection (CAD). FINDINGS: There are scattered areas of fibroglandular density (ACR BI-RADS breast composition Category b). There are no significant masses, abnormal calcifications, or other abnormalities. MM/MM tomosynthesis screening BI IMPRESSION: No mammographic evidence of malignancy. ASSESSMENT: BI-RADS BI-RADS 1 - Negative RECOMMENDATION: Routine annual mammography screening. 1 year F/U This examination should not preclude the clinical evaluation of a suspicious palpable abnormality. This patient's information was entered into a reminder system with a target due date for their next mammogram. Electronically signed by: Sushila Moon DO 02/22/2024 04:08 PM JAMESON
== END 2024-02-14 12:03 | disposition home or self-care (01) ==
LOC: HO.MAMMO 12:02
PROVIDERS: PCP Family Medicine; Visit Provider Family Medicine
DX: Z12.31 Encounter for screening mammogram for malignant neoplasm of breast (principal)
CPT/HCPCS: 77063; 77067

== ENCOUNTER → 2024-02-14 12:15 | Outpatient (BNV) | payer OTHER, SELFPAY | PROVIDERS: PCP Family Medicine; Visit Provider Internal Medicine | DX: Z12.31 Encounter for screening mammogram for malignant neoplasm of breast (principal) | CPT/HCPCS: 77063; 77067 ==

== ENCOUNTER 2024-03-04 12:21 | Outpatient (AMB) | payer OTHER, SELFPAY ==
--- NOTE | 2024-03-04 12:47 | MHC.OFFVIS ---
Intake Visit Reasons: 4m/PVR Intake Note: Patient is present for 4m/PVR Urology Medication:ELMIRON,SOLIFENACIN Antibiotic Allergy:NONE Blood Thinner:NONE TODAY'S PVR:0ML'S Configuration Management Consultant Required: No Allergies cefuroxime [From CEFTIN] Allergy (Severe, Verified 03/04/24 12:53) HIVES HPI Comments Details: Shereen is a pleasant 47 year old female patient of Dr. Parry. She has a past medical history of allergic rhinitis, diabetes, arthritis, chronic pain syndrome, lumbar disc degeneration, fibromyalgia, hypothyroidism, interstitial cystitis, migraines, morbid obesity, obstructive sleep apnea, restrictive lung disease, and spinal stenosis. Botox at last office visit 09/30 Reports good success with control of urgency and frequency Noting that control is slowly starting to fade Would like repeat Botox Prefers application to be performed in operating room Urinary urgency and frequency Prior therapy with Myrbetriq that reported to not be working Does feel improvement with 5 mg [facility] - NAD Low PVR Cystoscopy performed - Minimal descensus on coughing at cystoscopy, Normal bladder PFSH Medical History Disc degeneration, lumbar Nausea and vomiting Left forearm pain Patellofemoral arthralgia of right knee Urinary frequency Fungal infection of skin of abdomen Greater trochanteric bursitis of right hip Greater trochanteric bursitis of left hip Family history of colon cancer Daytime somnolence Morning headache Pre-op examination Asthma Diabetes mellitus Obstructive sleep apnea Hypothyroidism Hypertension GERD (gastroesophageal reflux disease) Diabetes Hirsutism Varicose veins with pain Restless leg syndrome Congenital pulmonary arteriovenous malformation Urinary retention Epicondylitis, lateral Interstitial cystitis Spinal stenosis of lumbar region Chronic pain syndrome Spondylosis, lumbar, with myelopathy Morbid obesity due to excess calories Arthritis Fibromyalgia Migraines Hypothyroid Restrictive lung disease Allergic rhinitis AISHWARYA on CPAP Surgical History Hx of spinal surgery Hx of cystoscopy Hx of colonoscopy History of esophagogastroduodenoscopy (EGD) Family History Father Alcoholism Mother Leukemia Maternal Aunt Breast cancer Sister Depression Vertigo Family/Other Heart problem Diabetes Cancer Brother Atherosclerotic cardiovascular disease Cardiomegaly Social History Household Members: Family Household Members Other:: Niece and great nieces and nephews Housing: Apartment Are you a primary interior plant caretaker to a significant other at home: No Do you presently have visiting nurse or other home services: No 75 years or older and lives alone: No Alcohol intake: never Comment: NONE Patient Tobacco Use Status: Never used Tobacco e-Cigarette/Vaping Use: Never Used Second Hand Smoke Exposure: No Substance Use Type: Marijuana service: No Current occupational status: disabled 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 Sexual orientation: Decline to Answer Review of Systems Const Denies chills and Denies fever(s) Card Reports no additional complaints and Denies syncope Resp Denies cough GI Denies abdominal pain and Denies heartburn Reports as per HPI and Denies change in libido Neuro Denies syncope Psych Denies change in libido Endo Denies change in libido Physical Exam Const General: cooperative, healthy appearing, comfortable and no acute distress Orientation/consciousness: patient oriented x3 HEENT Face and sinus: Yes normal facial exam Mouth: moist mucous membranes Neck Neck: Yes normal visual inspection, Yes full ROM and Yes trachea midline Chest Chest palpation & inspection: normal inspection of the chest Resp Effort & Inspection: normal respiratory effort, able to speak in complete sentences and no respiratory distress GI Inspection: Yes normal to inspection Back/Spine/Pelvis Cervical Spine: normal cervical lordosis Thoracic/Lumbar Spine: thoracic and lumbar spine normal to inspection Skin General skin exam: no rashes or lesions noted Neuro General: patient oriented x3, gait normal, tone normal and moves all extremities Extrem General: Yes normal to inspection and Yes capillary refill normal Office Procedures Post Void Residual Post Residual Void Post Void Residual (PVR): 0 00016-Fhnf Void Residual by ultrasound Results AMB Urinalysis, Automated UA Leukoctes 0 Koby/uL Last Edit by JOCE Darby on 03/04/24 13:07 UA Nitrite Negative Last Edit by JOCE Darby on 03/04/24 13:07 UA Urobilinogen 0.2 mg/dL Last Edit by JOCE Darby on 03/04/24 13:07 UA Protein 30 mg/dL Last Edit by JOCE Darby on 03/04/24 13:07 UA pH 6.0 Last Edit by Mony Arias [facility] on 03/04/24 13:07 UA Blood 0 Gage/uL Last Edit [facility] on 03/04/24 13:07 UA Specific Beaumont 1.030 Last Edit by Mony Arias [facility] on 03/04/24 13:07 UA Ketone Negative Last Edit by Mony Arias [facility] on 03/04/24 13:07 UA Bilirubin 1 mg/dL Last Edit by Mony Arias [facility] on 03/04/24 13:07 UA Glucose 0 mg/dL Last Edit by Mony Arias [facility] on 03/04/24 13:07 Assessment & Plan Assessment & Plan (1) Overactive bladder: Code(s): N32.81 - Overactive bladder Category: Medical (2) Interstitial cystitis: Code(s): N30.10 - Interstitial cystitis (chronic) without hematuria Category: Medical Plan Risks, benefits and alternatives to therapy were discussed. These include but are not limited to infection, bleeding, damage to local organs and tissues, need for further interventions. Anesthetic risks regarding cardiac arrhythmia, blood clots, and potential mortality were discussed. The patient understands the typical recovery time and the outpatient nature of the procedure. After consideration of these risks the patient gives full informed consent and they wish to move ahead with the procedure. Cystoscopy with bladder Botox Orders: Orders AMB Urinalysis Automated Today Z13.9 - Encounter for screening, unspecified Patient Instructions: Imaging studies, laboratory and physical exam results were discussed and reviewed in detail. No major barriers to patient understanding were identified. An opportunity to ask questions regarding the treatment plan was provided. All questions were answered. The patient expressed understanding and agreement with the above treatment plan. The patient is aware they should contact our office by phone for worsening of their current condition or the appearance of new urologic symptoms. Compliance is encouraged with any medications and followup testing that is ordered. It is a privilege to participate in the urologic care of your patient. If you have any questions or concerns regarding treatment for the above conditions, or other urologic issues, please do not hesitate to contact me. The office telephone contact is [phone]. This note is constructed using voice recognition software. While every effort has been made to ensure accuracy chemical mixer errors may have been included. Yours sincerely, Dr Wilfred Simental MD, [facility] - Urology Providers of Expert, Compassionate Care for the Genitourinary System Coding Level of Care Code Est Pt Level 4 (51864) Diagnoses Overactive bladder N32.81 Interstitial cystitis N30.10 CPT Codes Post Residual Void - PVR CPT Code: 66233-Ttvm Void Residual by ultrasound ([id number])
== END 2024-03-04 13:23 | disposition home or self-care (01) ==
PROVIDERS: PCP Family Medicine; Visit Provider Urology
DX: N32.81 Overactive bladder (principal); N30.10 Interstitial cystitis (chronic) without hematuria; Z13.9 Encounter for screening, unspecified
CPT/HCPCS: 99214

== ENCOUNTER → 2024-03-04 12:21 | Outpatient (BNVA) | payer OTHER, SELFPAY | PROVIDERS: PCP Family Medicine; Visit Provider Urology | DX: N30.10 Interstitial cystitis (chronic) without hematuria (principal); N32.81 Overactive bladder | CPT/HCPCS: 51798; 81003; 99212 ==

== ENCOUNTER → 2024-05-14 13:51 | Outpatient (BNV) | payer OTHER, SELFPAY | PROVIDERS: PCP Family Medicine; Visit Provider Internal Medicine Cardiovascular Disease | DX: I42.2 Other hypertrophic cardiomyopathy (principal) | CPT/HCPCS: 93306 ==

== ENCOUNTER 2024-06-30 11:22 | Day surgery (SDC) | payer OTHER, SELFPAY ==
--- OUTSIDE RECORDS SUMMARY | 2024-05-08 13:18 | XMS_ITS | Encounter Summary ---
Author Organization [employer] Address [address] [place] [address] 7 [place] [address] Care Team Providers Care Personal Injury Specialist Name Role Phone Daija Parry DO Primary Care Provider [phone]- [phone] Ely Darling PharmD Unavailable Reason for Visit * Reason Comments Med Refill Encounter Details Date Type Department Care Team ([facility] st Contact Info) Description 05/01/2024 Refill [facility] MEDICINE [address] [place] [address] Daija Parry DO [address] [place] [address] Essential hypertension Social History Tobacco Use Types Packs/Day Years Used Date Smoking Tobacco: Never Passive Smoke Exposure: Never Smokeless Tobacco: Never Alcohol Use Standard Drinks/Week Comments Never 0 (1 standard drink = 0.6 oz pur e alcohol) Depression Answer Date Recorded Patient Health Questionnaire-9 Score 25 07/12/2023 Patient Health Questionnaire-9 Score 25 07/12/2023 Last PHQ-9: Questionnaire Data Not on file 0 07/12/2023 Housing Stability Answer Date Recorded What is your housing situation today? I do not have housing (Staying with others, in a hotel, in a skilled nursing, living outside on the street, on a beach, in a car, or in a park 07/12/[address] you li ve. Do you have problems with any of the following? I am not sure 07/12/2023 Food Insecurity Answer Date Recorded Within the past 12 months, y ou worried that your food would run out before you got money to buy more: Often true 07/12/2023 Within the past 12 months,th e food you bought just didn't last and you didn't have enough money to get more: Often true 07/2023 Transportation Answer Date Recorded In the past 12 months, has l ack of transportation kept you from medical appts, meetings, work or from getting things needed for daily living? No 07/12/2023 Utilities Answer Date Recorded In the past 12 months, has t he electric, gas, oil or water company threatened to shut off services in your home? I am not sure 07/12/2023 Depression Answer Date Recorded Patient Health Questionnaire-2 Score 6 07/12/2023 Comments Unknown Sex and Gender Information Value Date Recorded Sex Assigned at Female 02/06/2022 10:15 AM EDT Legal Sex Female 10:15 AM EDT Gender Identity Female 02/06/2022 10:15 AM EDT Sexual Orientation Straight 02/06/2022 10 :15 AM EDT documented as of this encounter Plan of Treatment Upcoming Encounters Date Type Department Care Team (Late st Contact Info) Description 08/19/2024 2:00 PM EDT Office Visit [facility] OPTOMETRY [address] [place] [address] YordanArielle bernard, OD [address] [place] [address] documented as of this encounter Goals Goal Patient Goal Type Associated Problems Recent Progress Patient-Stated? Author Blood Pressure < 140/90 Blood Pressure 159/91(2023 12:14 PM EST) No Dellogono, Lopez, PharmD Hemoglobin A1c < 7 Result Component 5.4( 12:22 PM EDT) No Dellogono, Lopez, PharmD Record your blood sugar as directed Result Component No Puia, Ely, PharmD documented as of this encounter Visit Diagnoses Diagnosis Essential hypertension Unspecified essential hypertension documented in this encounter Additional Health Concerns Assessment Noted Time PHQ-9 Depression Total Score: 25 024 12:17 PM EDT documented as of this encounter Care Teams Personal Injury Specialist Relationship Specialty Start Date End Date Daija Parry DO [address] [place] [address] PCP - General Family Medicine 12/22/14 Ely Darling, AugustoD [address] [place] [id number] Pharmacist Internal Medicine 11/22/22 documented as of this encounter
--- OUTSIDE RECORDS SUMMARY | 2024-05-08 13:18 | XMS_ITS | Encounter Summary ---
Author Organization [employer] Address [address] [place] [address] 7[address] [place] [address] Care Team Providers Care Airframe Design Engineer Name Role Phone Brinda Daija ROBLES Primary Care Provider [phone] Ely Darling PharmD Unavailable Reason for Visit * Reason Comments Med Refill Encounter Details Date Type Department Care Team ([facility] st Contact Info) Description 01/24/2023 Refill [facility] MEDICINE [address] [place] [address] Daphney Roca MD [address] [place] [address] Social History Tobacco Use Types Packs/Day Years Used Date Smoking Tobacco: Never Passive Smoke Exposure: Never Smokeless Tobacco: Never Alcohol Use Standard Drinks/Week Comments Never 0 (1 standard drink = 0.6 oz pur e alcohol) Depression Answer Date Recorded Patient Health Questionnaire-9 Score 24 01/02/2023 Housing Stability Answer Date Recorded What is your housing situation today? I have housing today, but I am worried about losing housing in the future 01/22/[address] you li ve. Do you have problems with any of the following? None of the above 01/22/2023 Food Insecurity Answer Date Recorded Within the past 12 months, y ou worried that your food would run out before you got money to buy more: Never True 01/22/2023 Within the past 12 months,th e food you bought just didn't last and you didn't have enough money to get more: Never True Transportation Answer Date Recorded In the past 12 months, has l ack of transportation kept you from medical appts, meetings, work or from getting things needed for daily living? No 01/22/2023 Utilities Answer Date Recorded In the past 12 months, has t he electric, gas, oil or water company threatened to shut off services in your home? No 01/22/2023 Depression Answer Date Recorded Patient Health Questionnaire-2 Score 6 01/02/2023 Comments Unknown Sex and Gender Information Value [...] Description 08/19/2024 2:00 PM EDT Office Visit [facility] OPTOMETRY [address] [place], [place] [phone] YordanArielle bernard, OD [address] [place] [address] documented as of this encounter Goals Goal Patient Goal Type Associated Problems Recent Progress Patient-Stated? Author Blood Pressure < 140/90 Blood Pressure 159/91(2023 12:14 PM EST) No DelLopez moreno, PharmD Hemoglobin A1c < 7 Result Component 5.4( 12:22 PM EDT) No Dellogono Lopez, PharmD Record your blood sugar as directed Result Component No Ely Darling, PharmD documented as of this encounter Visit Diagnoses Not on filedocumented in this encounter Additional Health Concerns Assessment Noted Time PHQ-9 Depression Total Score: 24 023 8:59 AM EDT documented as of this encounter Care Teams Airframe Design Engineer Relationship Specialty Start Date End Date Daija Parry DO [address] [place], [place] [phone] PCP - General Family Medicine 12/22/14 PuiaEly, PharmD [address] [place] [address] Pharmacist Internal Medicine 11/22/22 documented as of this encounter
--- OUTSIDE RECORDS SUMMARY | 2024-05-08 13:18 | XMS_ITS | Encounter Summary ---
Author Organization [email or web address] Address [address] [place] [address] 7 [place] [address] Care Team Providers Care Industrial Hygienist Name Role Phone Daija Parry DO Primary Care Provider [phone]- [phone] Ely Darling PharmD Unavailable [phone] Reason for Visit * Reason Comments Med Refill Encounter Details Date Type Department Care Team (Late st Contact Info) Description 05/03/2024 Refill [facility] MED & PEDS [address] [place] [address] Daija Parry DO [address] [place] [address] Social History Tobacco Use Types Packs/Day Years [...] with others, in a hotel, in a fdc, living outside on the street, on a [...] Description 08/19/2024 2:00 PM EDT Office Visit [facility] OPTOMETRY [address] [place] [address] YordanArielle bernard, OD [address] [place] [address] documented as of this encounter Goals Goal [...] documented as of this encounter Care Teams Industrial Hygienist Relationship Specialty Start Date End Date Daija Parry DO [address] [place] [address] PCP - General Family Medicine 12/22/14 Ely Darling, AugustoD [address] [place] [address] [place] [address] Pharmacist Internal Medicine 11/22/22 documented as of this encounter
--- OUTSIDE RECORDS SUMMARY | 2024-05-08 13:18 | XMS_ITS | Encounter Summary ---
Author Organization [employer] Address [address] [place] [address] 7 [place] [address] Care Team Providers Care Stapler Hand Name Role Phone Daija Parry DO Primary Care Provider [phone] Ely Darling PharmD Unavailable Reason for Visit * Reason Onset Date Comments Nurse Triage 05/02/2024 Encounter Details Date Type Department Care Team ([facility] st Contact Info) Description 05/02/2024 Telephone [facility] MEDICINE [address] [place], [place] [phone] Daija Parry DO [address] [place], [place] [phone] Nurse Triage Social History Tobacco Use Types Packs/Day Years [...] with others, in a hotel, in a halfway, living outside on the street, on a [...] AM EDT documented as of this encounter Miscellaneous Notes * Telephone Encounter - Marce Lopez RN - 05/02/2024 9:26 AM EST Called pt. She states that she has a cough x 3 days. Runny nose. Pt. Has Hx. Of Asthma and unknown if it is due to cough. [id number]. Slight SOB. No fever. Pt wants [facility] to come see hertoday this afternoon to check her lungs and cough. Called [facility]. Spoke to nurse Mendoza gave current address where pt. Presently is at. Verified Pharmacy and allergies DX. [facility] will call pt. To set up afternoon visit per pt. Request. Protocol Used: Cough (Adult) Protocol-Based Disposition: See in Office or Video Visit Today- [facility] will call pt. To set up timeto visit. Video visit not offered Positive Triage Questions: * Coughing up green sputum * Known Asthma or other severe lung disease (i.e., bronchiectasis, cystic fibrosis, lung surgery) and symptoms getting worse (i.e., increased sputum purulence or amount, increased breathing difficulty)< br /> * All higher-acuity triage questions were negative Care Advice Discussed: * Reassurance and Education - Cough * Cough Medicines * Coughing Spells * Prevent Dehydration * Avoid Tobacco Smoke * Humidifier * Fever Medicines * Telephone Encounter - Jonnathan Wilson - 05/02/2024 9:03 AM EST Symptoms: Cough, Runny Nose Outcome: Transfer to a nurse or provider NOW! Reason: Struggling for each breath (severe trouble breathing) The caller accepted this outcome. documented in this encounter Plan of Treatment Upcoming Encounters Date Type Department Care Team (Late st Contact Info) Description 08/19/2024 2:00 PM EDT Office Visit [facility] OPTOMETRY [address] [place], [place] [phone] Arielle Farr, OD [address] [place] [address] documented as of this encounter Goals Goal Patient Goal Type Associated Problems Recent Progress Patient-Stated? Author Blood Pressure < 140/90 Blood Pressure 159/91(2023 12:14 PM EST) No DellogLopez urena, PharmD Hemoglobin A1c < 7 Result Component 5.4( 12:22 PM EDT) No Dellogono Lopez, PharmD Record your blood sugar as directed Result Component No Ely Darling, PharmD documented as of this encounter Visit Diagnoses Not on filedocumented in this encounter Additional Health Concerns Assessment Noted Time PHQ-9 Depression Total Score: 25 024 12:17 PM EDT documented as of this encounter Care Teams Stapler Hand Relationship Specialty Start Date End Date Daija Parry DO [address] [place] [address] PCP - General Family Medicine 12/22/14 Ely Darling, PharmD [address] [place] [address] Pharmacist Internal Medicine 11/22/22 documented as of this encounter
--- OUTSIDE RECORDS SUMMARY | 2024-05-08 13:18 | XMS_ITS | Encounter Summary ---
Author Organization [employer] Address [address] [place] [address] 7 [place] [address] Care Team Providers Care Certified Orthotic Fitter Name Role Phone Daija Parry DO Primary Care Provider [phone]- [phone] Ely Darling PharmD Unavailable [phone] Reason for Visit * Reason Onset Date Comments Med Refill 04/17/2024 Encounter Details Date Type Department Care Team (Late st Contact Info) Description 04/17/2024 Refill [facility] MED & PEDS [address] [place] [address] Daija Parry DO [address] [facility] [place] [address] Chronic bilateral low back pain with bilateral sciatica (Primary Dx) Social History Tobacco Use Types Packs/Day Years [...] with others, in a hotel, in a long-term, living outside on the street, on a [...] the past 12 months, has t he [employer], gas, oil or water [employer] threatened to shut off services in your [...] as of this encounter Miscellaneous Notes * Addendum Note - Beatriz [place] RN - 04/17/2024 2:21 PM ESTAddended by: BEATRIZ GRAHAM on: 04/17/2024 02:21 PM Modules accepted: Orders * Telephone Encounter - Esther Quinn LPN - 04/17/2024 2:05 PM EST Received request on Tramadol 50 mg documented in this encounter Plan of Treatment Upcoming Encounters Date Type Department Care Team (Late st Contact Info) Description 08/19/2024 2:00 PM EDT Office Visit [facility] OPTOMETRY [address] [place], [place] [phone] Arielel Farr, OD [address] [place] [address] documented as of this encounter Goals Goal Patient Goal Type Associated Problems Recent Progress Patient-Stated? Author Blood Pressure < 140/90 Blood Pressure 159/91(2023 12:14 PM EST) No Lopez Marroquin, PharmMahin Hemoglobin A1c < 7 Result Component 5.4( 12:22 PM EDT) No Lopez Marroquin, PharmMahin Record your blood sugar as directed Result Component No Ely Darling PharmD documented as of this encounter Visit Diagnoses Diagnosis Chronic bilateral low back pain with bilateral sciatica- Primary documented in this encounter Additional Health Concerns Assessment Noted Time PHQ-9 Depression Total Score: 25 024 12:17 PM EDT documented as of this encounter Care Teams Certified Orthotic Fitter Relationship Specialty Start Date End Date Daija Parry DO [address] [place] [address] PCP - General Family Medicine 12/22/14 Ely Darling PharmD [address] [place] [address] Pharmacist Internal Medicine 11/22/22 documented as of this encounter
--- OUTSIDE RECORDS SUMMARY | 2024-05-08 13:18 | XMS_ITS | Encounter Summary ---
Author Organization [employer] Address [address] [place] [address] [address] [place] [address] Care Team Providers Care Diversified Crops I Farmworker Name Role Phone Daija Parry DO Primary Care Provider [phone] Ely Darling PharmD Unavailable Reason for Visit * Reason Comments Med Refill Encounter Details Date Type Department Care Team ([facility] st Contact Info) Description 04/29/2024 Refill [facility] MEDICINE [address] [place], [place] [phone] Daija Parry DO [address] [place], [place] [phone] Type 2 diabetes mellitus without complication, without long-term current use of insulin ([facility]) Social History Tobacco Use Types Packs/Day Years [...] with others, in a hotel, in a group home, living outside on the street, on a [...] the past 12 months, has t he [employer], gas, oil or water [employer] threatened to shut off services in your [...] 08/19/2024 2:00 PM EDT Office Visit [facility] OPTOMETRY [address] [place] [address] YordanArielle, OD [address] [place] [address] documented as of this encounter Goals Goal Patient Goal Type Associated Problems Recent Progress Patient-Stated? Author Blood Pressure < 140/90 Blood Pressure 159/91(2023 12:14 PM EST) No Lopez Marroquin, PharmD Hemoglobin A1c < 7 Result Component 5.4( 12:22 PM EDT) No Lopez Marroquin PharmD Record your blood sugar as directed Result Component No Ely Darling PharmD documented as of this encounter Visit Diagnoses Diagnosis Type 2 diabetes mellitus without complication, without long-term current use of insulin ([facility]) documented in this encounter Additional Health Concerns Assessment Noted Time PHQ-9 Depression Total Score: 25 024 12:17 PM EDT documented as of this encounter Care Teams Diversified Crops I Farmworker Relationship Specialty Start Date End Date Daija Parry DO [address] [place] [address] PCP - General Family Medicine 12/22/14 Ely Darling PharmD [address] [place] [address] Pharmacist Internal Medicine 11/22/22 documented as of this encounter
--- OUTSIDE RECORDS SUMMARY | 2024-05-08 13:18 | XMS_ITS | Encounter Summary ---
Author Organization [employer] Address [address] [place] [address] 7 [place] [address] Care Team Providers Care Geospatial Image Analyst Name Role Phone Daija Parry DO Primary Care Provider +1- [phone] Ely Darling PharmD Unavailable [phone] Reason for Visit * Reason Onset Date Comments Appointment Request 05/01/2024 Encounter Details Date Type Department Care Team ([facility] st Contact Info) Description 05/01/2024 Telephone [facility] [address] [place], [place] [phone] Daija Parry DO [address] [place], [place] [phone] Appointment Request Social History Tobacco Use Types Packs/Day Years [...] with others, in a hotel, in a usp, living outside on the street, on a [...] encounter Miscellaneous Notes * Telephone Encounter - Lakesha Graham RN - 05/05/2024 3:23 PM EST Return TC to patient, no answer. L/M again asking her to call back to reschedule appt. * Telephone Encounter - Lakesha Graham RN - 05/01/2024 2:14 PM EST Return TC to patient, no answer. L/M asking her to call back when she's available. * Telephone Encounter - Holland Nation - 05/01/2024 1:43 PM EST Tc from pt requesting a call regarding appt pn 05/06/2024 at 9:45am and pt states they will not be able to make it to the appt. Pt contact:[phone] documented in this encounter Plan of Treatment Upcoming Encounters Date Type Department Care Team (Late st Contact Info) Description 08/19/2024 2:00 PM EDT Office Visit [facility] [address] [place] [address] Arielle Farr, OD 230 [place] [address] documented as of this encounter Goals Goal Patient Goal Type Associated Problems Recent Progress Patient-Stated? Author Blood Pressure < 140/90 Blood Pressure 159/91(2023 12:14 PM EST) No Lopez Marroquin, PharmMahin Hemoglobin A1c < 7 Result Component 5.4( 12:22 PM EDT) No Lopez Marroquin, PharmD Record your blood sugar as directed Result Component No Ely Darling PharmD documented as of this encounter Visit Diagnoses Not on filedocumented in this encounter Additional Health Concerns Assessment Noted Time PHQ-9 Depression Total Score: 25 024 12:17 PM EDT documented as of this encounter Care Teams Geospatial Image Analyst Relationship Specialty Start Date End Date Daija Parry DO [address] [place] [address] PCP - General Family Medicine 12/22/14 Ely Darling, PharmD [address] [place] [address] Pharmacist Internal Medicine 11/22/22 documented as of this encounter
--- OUTSIDE RECORDS SUMMARY | 2024-05-08 13:18 | XMS_ITS | Encounter Summary ---
Author Organization [employer] Address [address] [place] [address] 7 [place] [address] Care Team Providers Care Tariff Compiling Clerk Name Role Phone Daija Parry DO Primary Care Provider +1- [phone] Ely Darling PharmD Unavailable Reason for Visit * Reason Onset Date Comments Appointment Request 04/03/2023 Encounter Details Date Type Department Care Team ([facility] st Contact Info) Description 04/03/2023 Telephone [facility] MEDICINE [address] [place], [place] [phone] Daija Parry DO [address] [place], [place] [phone] Appointment Request Social History Tobacco Use Types [...] encounter Miscellaneous Notes * Telephone Encounter - Haim Werner - 04/03/2023 11:54 AM EST Tc from patient requesting a appt would like to be seen for headaches due to CPAP machine personal lines underwriter did offer to triage this call patient refused due to being out of town and is returning on 04/21/2023 documented in this encounter Plan of Treatment Upcoming Encounters Date Type Department Care Team (Late st Contact Info) Description 08/19/2024 2:00 PM EDT Office Visit [facility] OPTOMETRY [address] [place] [address] Yordan, Arielle, OD [address] [place] [address] documented as of this encounter Goals Goal Patient Goal Type Associated Problems Recent Progress Patient-Stated? Author Blood Pressure < 140/90 Blood Pressure 159/91(2023 12:14 PM EST) No Lopez Marroquin, PharmD Hemoglobin A1c < 7 Result Component 5.4( 12:22 PM EDT) No Dellogromel Lopez, PharmD Record your blood sugar as directed Result Component No Ely Darling PharmD documented as of this encounter Visit Diagnoses Not on filedocumented in this encounter Additional Health Concerns Assessment Noted Time PHQ-9 Depression Total Score: 24 023 8:59 AM EDT documented as of this encounter Care Teams Tariff Compiling Clerk Relationship Specialty Start Date End Date Daija Parry DO [address] [place] [address] PCP - General Family Medicine 12/22/14 Ely Darling PharmD [address] [place] [address] Pharmacist Internal Medicine 11/22/22 documented as of this encounter
--- OUTSIDE RECORDS SUMMARY | 2024-05-08 13:18 | XMS_ITS | Encounter Summary ---
Author Organization [employer] Address [address] [place] [address] 7 [place] [address] Care Team Providers Care Marine Habitat Resource Specialist Name Role Phone Daija Parry DO Primary Care Provider +1- [phone] Ely Darling PharmD Unavailable Reason for Visit * Reason Comments Med Refill Encounter Details Date Type Department Care Team ([facility] st Contact Info) Description 05/05/2024 Refill [facility] MED[facility]INE 230 [place] [address] Daija Parry DO [address] [place], [place] [phone] Pain Social History Tobacco Use Types Packs/Day Years [...] with others, in a hotel, in a custodial, living outside on the street, on a [...] Description 08/19/2024 2:00 PM EDT Office Visit [facility] OPTOMETRY [address] [place] [address] Yordan, Arielle, OD 230 [place] [address] documented as of this encounter Goals Goal [...] as of this encounter Visit Diagnoses Diagnosis Pain Generalized pain documented in this encounter Additional Health Concerns Assessment Noted Time PHQ-9 Depression Total Score: 25 024 12:17 PM EDT documented as of this encounter Care Teams Marine Habitat Resource Specialist Relationship Specialty Start Date End Date Daija Parry DO [address] [place] [address] PCP - General Family Medicine 12/22/14 Ely Darling, Ashish [address] [place] [phone] Pharmacist Internal Medicine 11/22/22 documented as of this encounter
--- OUTSIDE RECORDS SUMMARY | 2024-05-08 13:19 | XMS_ITS | Encounter Summary ---
Author Organization [employer] Address [address] [place] [address] [place] [address] Care Team Providers Care Clinical Office Technician Name Role Phone Daija Parry DO Primary Care Provider +1- [phone] Ely Darling PharmD Unavailable [phone] Reason for Visit * Reason Comments Med Refill Encounter Details Date Type Department Care Team (Late Contact Info) Description 01/01/2023 Refill [facility] MEDICINE 230 [place] [address] Daija Parry DO [address] [place] [address] Social History Tobacco Use Types Packs/Day Years Used Date Smoking Tobacco: Never Passive Smoke Exposure: Never Smokeless Tobacco: Never Alcohol Use Standard Drinks/Week Comments Never 0 (1 standard drink = 0.6 oz pur e alcohol) Depression Answer Date Recorded Patient Health Questionnaire-9 Score 24 01/02/2023 Depression Answer Date Recorded Patient Health Questionnaire-2 [...] Encounters Date Type Department Care Team (Late Contact Info) Description 08/19/2024 2:00 PM EDT Office Visit [facility] OPT[facility] [address] [place] [address] Arielle Farr, LATRICIA 230 [place] [address] documented as of this encounter Goals Goal [...] Time PHQ-9 Depression Total Score: 24 023 11:12 AM EST documented as of this encounter Care Teams Clinical Office Technician Relationship Specialty Start Date End Date Daija Parry DO [address] [place] [address] PCP - General Family Medicine 12/22/14 Ely Darling, PharmD [address] [place] [address] Pharmacist Internal Medicine 11/22/22 documented as of this encounter
--- OUTSIDE RECORDS SUMMARY | 2024-05-08 13:19 | XMS_ITS | Encounter Summary ---
Author Organization [employer] Address [address] [place] [address] 7 [place] [address] Care Team Providers Care Machine Designer Name Role Phone Daija Parry DO Primary Care Provider Lopez Marroquin PharmD Unavailable Unavail able Ely Darling PharmD Unavailable Reason for Visit * Reason Onset Date Comments Durable Medical Equipment 05/10/2022 Encounter Details Date Type Department Care Team (Late st Contact Info) Description 05/10/2022 Telephone [facility] MEDICINE [address] [place], [place] [phone] Daija Parry DO [address] [place], [place] [phone] Durable Medical Equipment Social History Tobacco Use Types Packs/Day Years Used Date Smoking Tobacco: Never Passive Smoke Exposure: Never Smokeless Tobacco: Never Alcohol Use Standard Drinks/Week Comments Never 0 (1 standard drink = 0.6 oz pur e alcohol) Comments Unknown Sex and Gender Information Value Date Recorded Sex Assigned at Female 02/06/2022 10:15 AM EDT Legal Sex Female 10:15 AM EDT Gender Identity Female 02/06/2022 10:15 AM EDT Sexual Orientation Straight 02/06/2022 10 :15 AM EDT documented as of this encounter Miscellaneous Notes * Telephone Encounter - Zeynep Wilson - 05/10/2022 2:17 PM EST Script generated for providers signature * Telephone Encounter - Uvaldo Cuello - 05/10/2022 1:59 PM EST Tc from Valentin Arredondo requesting a new script also requested to be emailed too. A script for 4 cases of non fragrance wipes Please contact valentni at [phone] documented in this encounter Plan of Treatment Upcoming Encounters Date Type Department Care Team (Late st Contact Info) Description 08/19/2024 2:00 PM EDT Office Visit [facility] OPTOMETRY [address] [place] [address] Yordan, Arielle, OD 230 [place] [address] documented as of this encounter Visit Diagnoses Not on filedocumented in this encounter Additional Health Concerns Assessment Noted Time PHQ-9 Depression Total Score: 24 022 10:57 AM EST documented as of this encounter Care Teams Machine Designer Relationship Specialty Start Date End Date Daija Parry DO [address] [place] [address] PCP - General Family Medicine 12/22/14 Lopez Marroquin, AugustoD 230 [place] [address] Pharmacist Internal Medicine 06/25/22 11/22/22 Ely Darling PharmD [address] [place] [address] Pharmacist Internal Medicine 11/22/22 documented as of this encounter
--- OUTSIDE RECORDS SUMMARY | 2024-05-08 13:19 | XMS_ITS | Encounter Summary ---
Author Organization [employer] Address [address] [place] [address] 7 [place] [address] Care Team Providers Care Physics Department Chair Name Role Phone Daija Parry DO Primary Care Provider Lopez Marroquin PharmD Unavailable Unavail able Ely Darling PharmD Unavailable Reason for Visit * Reason Onset Date Comments Appointment Request 06/27/2022 Encounter Details Date Type Department Care Team ([facility] st Contact Info) Description 06/27/2022 Telephone [facility] MEDICINE 230 [place], [place] [phone] Daija Parry DO 230 [place], [place] [phone] Appointment Request Social History Tobacco Use Types [...] Orientation Straight 02/06/2022 10 :15 AM EDT COVID-19 Exposure Response Date Recorded In the last 10 days, have yo u been in contact with someone who was confirmed or suspected to have Coronavirus/COVID-19? No / Unsure 06/23/2022 1:56 PM EDT documented as of this encounter Miscellaneous Notes * Telephone Encounter - Vu Nathan - 06/30/2022 10:02 AM EDT T/C to pt regarding message below. No answer LVM that no appt available at this time that she is zeyad recall list. * Telephone Encounter - Lesley Martinez - 06/27/2022 3:08 PM EDT Tc from pt requesting to r/s appt for 06/27/2022 Office visit extended. [employer] tried booking but noavailable spaces. Please contact pt at [phone] documented in this encounter Plan of Treatment Upcoming Encounters Date Type Department Care Team (Late st Contact Info) Description 08/19/2024 2:00 PM EDT Office Visit [facility] OPTOMETRY [address] [place] [address] Arielle Farr, OD 230 [place] [address] documented as of this encounter Goals Goal Patient Goal Type Associated Problems Recent Progress Patient-Stated? Author Blood Pressure < 140/90 Blood Pressure 159/91(2023 12:14 PM EST) No Dellogono, Lopez, PharmD Hemoglobin A1c < 7 Result Component 5.4( 12:22 PM EDT) No Dellogono, Lopez, PharmD documented as of this encounter Visit Diagnoses Not on filedocumented in this encounter Additional Health Concerns Assessment Noted Time PHQ-9 Depression Total Score: 24 023 11:12 AM EST documented as of this encounter Care Teams Physics Department Chair Relationship Specialty Start Date End Date Daija Parry DO 230 [place] [address] PCP - General Family Medicine 12/22/14 Dellogono, Lopez, PharmD 230 [place] [address] Pharmacist Internal Medicine 06/25/22 11/22/22 Ely Darling, Ashish [address] [place], [place] [address]j[place] [address] Pharmacist Internal Medicine 11/22/22 documented as of this encounter
--- OUTSIDE RECORDS SUMMARY | 2024-05-08 13:19 | XMS_ITS | Encounter Summary ---
Author Organization [employer] Address [address] [place] [address] 7 [place] [address] Care Team Providers Care Reaming Machine Operator Name Role Phone Daija Parry DO Primary Care Provider +1- [phone] Ely Darling PharmD Unavailable Reason for Visit * Reason Onset Date Comments Med Refill 08/29/2023 Encounter Details Date Type Department Care Team (Late st Contact Info) Description 08/29/2023 Refill [facility] MED & PEDS [address] [place] [address] Daija Parry DO 230 [facility] [place] [address] Chronic bilateral low back pain, unspecified whether sciatica present Social History Tobacco Use Types Packs/Day Years [...] with others, in a hotel, in a care home, living outside on the street, on [...] Description 08/19/2024 2:00 PM EDT Office Visit [facility] OPTOMETRY [address] [place] [address] Arielle Farr, OD [address] [place] [address] documented as of this encounter Goals Goal [...] Visit Diagnoses Diagnosis Chronic bilateral low back pain, unspecified whether sciatica present documented in this encounter Additional Health Concerns Assessment Noted Time PHQ-9 Depression Total Score: 25 024 12:17 PM EDT documented as of this encounter Care Teams Reaming Machine Operator Relationship Specialty Start Date End Date Daija Parry DO [address] [place], [place] [phone] PCP - General Family Medicine 12/22/14 Ely Darling PharmD [address] [place] [address] Pharmacist Internal Medicine 11/22/22 documented as of this encounter
--- OUTSIDE RECORDS SUMMARY | 2024-05-08 13:19 | XMS_ITS | Encounter Summary ---
Author Organization [employer] Address [address] [place] [address] 7 [place] [address] Care Team Providers Care Ruling Machine Operator Name Role Phone Daija Parry DO Primary Care Provider +1- [phone] Ely Darling PharmD Unavailable Reason for Visit * Reason Comments Med Refill Encounter Details Date Type Department Care Team ([facility] st Contact Info) Description 02/11/2024 Refill [facility] MEDICINE 230 [place] [address] Daija Parry DO 230 [place], [place] [phone] Hypothyroidism, unspecified type Social History Tobacco Use Types Packs/Day Years [...] with others, in a hotel, in a retirement, living outside on the street, on a [...] Description 08/19/2024 2:00 PM EDT Office Visit [facility] OPTOMETRY [address] [place] [address] Arielle Farr, OD [address] [place] [address] documented as of this encounter Goals Goal [...] as of this encounter Visit Diagnoses Diagnosis Hypothyroidism, unspecified type documented in this encounter Additional Health Concerns Assessment Noted Time PHQ-9 Depression Total Score: 25 024 12:17 PM EDT documented as of this encounter Care Teams Ruling Machine Operator Relationship Specialty Start Date End Date Daija Parry DO 230 [place] [address] PCP - General Family Medicine 12/22/14 Ely Darling PharmD 230 [place] [address] Pharmacist Internal Medicine 11/22/22 documented as of this encounter
--- OUTSIDE RECORDS SUMMARY | 2024-05-08 13:19 | XMS_ITS | Encounter Summary ---
Author Organization [employer] Address [address] [place] [address] 7 [place] [address] Care Team Providers Care Boot Lace Cutter Machine Name Role Phone Daija Parry DO Primary Care Provider +1- [phone] Ely Darling PharmD Unavailable Reason for Visit * Reason Comments Med Refill Encounter Details Date Type Department Care Team (Late st Contact Info) Description 09/30/2023 Refill [facility] & PEDS [address] [place] [address] Daija Parry DO [address] [place] [address] Pain Social History Tobacco Use Types Packs/Day [...] with others, in a hotel, in a [place] [facility], living outside on the street, on a [...] Description 08/19/2024 2:00 PM EDT Office Visit [facility] OPTOMETRY [address] [place] [address] Arielle Farr, OD [address] [place] [address] documented as of this encounter Goals Goal [...] documented as of this encounter Care Teams Boot Lace Cutter Machine Relationship Specialty Start Date End Date Daija Parry DO 230 [place] [address] PCP - General Family Medicine 12/22/14 Ely Darling, AugustoD [address] [place] [address] [place] [address] Pharmacist Internal Medicine 11/22/22 documented as of this encounter
--- OUTSIDE RECORDS SUMMARY | 2024-05-08 13:19 | XMS_ITS | Encounter Summary ---
Author Organization [employer] Address [address] [place] [address] 7 [place] [address] Care Team Providers Care Supervisor Baking Name Role Phone Daija Parry DO Primary Care Provider +1- [phone] Ely Darling PharmD Unavailable Reason for Visit * Reason Onset Date Comments Med Refill 09/09/2023 Encounter Details Date Type Department Care Team (Late st Contact Info) Description 09/09/2023 Refill [facility] [address] [place] [address] Daija Parry DO [address] [facility] [place] [address] Chronic bilateral low back pain, unspecified whether [...] with others, in a hotel, in a half-way, living outside on the street, on a [...] Description 08/19/2024 2:00 PM EDT Office Visit [facility] OPTOMETRY [address] [place] [address] Arielle Farr, OD [address] [place] [address] documented as of this encounter Goals Goal [...] documented as of this encounter Care Teams Supervisor Baking Relationship Specialty Start Date End Date Daija Parry DO 230 [place], [place] [phone] PCP - General Family Medicine 12/22/14 Ely Darling PharmD 230 [place] [address] Pharmacist Internal Medicine 11/22/22 documented as of this encounter
--- OUTSIDE RECORDS SUMMARY | 2024-05-08 13:19 | XMS_ITS | Encounter Summary ---
Author Organization [employer] Address [address] [place] [address] 7t [place] [address] Care Team Providers Care Statistics Intern Name Role Phone Daija Parry DO Primary Care Provider DelLopez moreno PharmD Unavailable Unavail able Ely Darling PharmD Unavailable Reason for Visit * Reason Onset Date Comments Med Refill 06/12/2022 Encounter Details Date Type Department Care Team ([facility] st Contact Info) Description 06/12/2022 Telephone [facility] MEDICINE [address] [place], [place] [phone] Daija Parry DO 230 [place], [place] [phone] Med Refill Social History Tobacco Use Types Packs/Day Years [...] suspected to have Coronavirus/COVID-19? No / Unsure 05/26/2022 10:22 AM EST documented as of this encounter Miscellaneous Notes * Telephone Encounter - Lesley Martinez - 06/12/2022 9:48 AM EST Tc from pt requesting med refill on clonazePAM (KlonoPIN) 0.5 MG tablet Please sent to [facility] [place], [place] - [address] [facility] documented in this encounter Plan of Treatment Upcoming Encounters Date Type Department Care Team (Late st Contact Info) Description 08/19/2024 2:00 PM EDT Office Visit [facility] OPTOMETRY [address] [place] [address] Arielle Farr, OD 230 [place] [address] documented as of this encounter Visit Diagnoses Not on filedocumented in this encounter Additional Health Concerns Assessment Noted Time PHQ-9 Depression Total Score: 24 023 11:12 AM EST documented as of this encounter Care Teams Statistics Intern Relationship Specialty Start Date End Date Daija Parry DO 230 [place] [address] PCP - General Family Medicine 12/22/14 Lopez Marroquin, AugustoD [address] [place] [address] Pharmacist Internal Medicine 06/25/22 11/22/22 Ely Darling PharmD 230 [place] [address] Pharmacist Internal Medicine 11/22/22 documented as of this encounter
--- OUTSIDE RECORDS SUMMARY | 2024-05-08 13:19 | XMS_ITS | Encounter Summary ---
Author Organization [employer] Address [address] [place] [address] [address] [place] [address] Care Team Providers Care Back Tender Fourdrinier Name Role Phone JosephDaija carrasquillo Primary Care Provider +1- [phone] Ely Darling PharmD Unavailable Reason for Visit * Reason Comments Med Refill Encounter Details Date Type Department Care Team (Late st Contact Info) Description 12/16/2022 Refill [facility]INE [address] [place] [address] Daphney Roca MD [address] [place] [address] Mild persistent asthma, unspecified whether complicated Social History Tobacco Use Types Packs/Day Years [...] Office Visit [facility] OPTOMETRY [address] [place] [address] Arielle Farr, OD [address] [place] [address] documented as of this encounter Goals Goal Patient Goal Type Associated Problems Recent Progress Patient-Stated? Author Blood Pressure < 140/90 Blood Pressure 159/91(2023 12:14 PM EST) No Lopez Marroquin PharmD Hemoglobin A1c < 7 Result Component 5.4( 12:22 PM EDT) No Lopez Marroquin PharmD Record your blood sugar as directed Result Component No Ely Darling PharmD documented as of this encounter Visit Diagnoses Diagnosis Mild persistent asthma, unspecified whether complicated documented in this encounter Additional Health Concerns Assessment Noted Time PHQ-9 Depression Total Score: 24 023 11:12 AM EST documented as of this encounter Care Teams Back Tender Fourdrinier Relationship Specialty Start Date End Date Daija Parry DO 230 [place] [address] PCP - General Family Medicine 12/22/14 Ely Darling PharmD 230 [place] [address] Pharmacist Internal Medicine 11/22/22 documented as of this encounter
--- OUTSIDE RECORDS SUMMARY | 2024-05-08 13:19 | XMS_ITS | Encounter Summary ---
Author Organization [employer] Address [address] [place] [address] [address] [place] [address] Care Team Providers Care Quality Systems Specialist Name Role Phone Daija Parry DO Primary Care Provider +1- [phone] Ely Darling PharmD Unavailable Reason for Visit * Reason Onset Date Comments Appointment Request 10/19/2023 Encounter Details Date Type Department Care Team ([facility] st Contact Info) Description 10/19/2023 Telephone [facility] MEDICINE 230 [place], [place] [phone] Daija Parry DO 230 [place], [place] [phone] Appointment Request Social History Tobacco Use Types [...] with others, in a hotel, in a correction, living outside on the street, on a [...] the past 12 months, has t he [employer] gas, oil or water company threatened to [...] * Telephone Encounter - Haim Werner - 10/19/2023 11:15 AM EDT Tc from patient calling to reschedule sick on-site appt from 10/16 documented in this encounter Plan of Treatment Upcoming Encounters Date Type Department Care Team (Late st Contact Info) Description 08/19/2024 2:00 PM EDT Office Visit [facility] OPTOMETRY [address] [place] [address] Arielle Farr, OD [address] [place] [address] documented as of this encounter Goals Goal [...] documented as of this encounter Care Teams Quality Systems Specialist Relationship Specialty Start Date End Date Daija Parry DO 230 [place] [address] PCP - General Family Medicine 12/22/14 Ely Darling PharmD [address] [place] [address] Pharmacist Internal Medicine 11/22/22 documented as of this encounter
--- OUTSIDE RECORDS SUMMARY | 2024-05-08 13:19 | XMS_ITS | Encounter Summary ---
Author Organization [facility] Address [address] [place] [address] [address] [place] [address] Care Team Providers Care Retail Management Trainee Name Role Phone Daija Parry DO Primary Care Provider [phone] DelLopez moreno PharmD Unavailable Unavail able Ely Darling PharmD Unavailable [phone] Encounter Details Date Type Department Care Team ([facility] Contact Info) Description 05/15/2022 Telephone [facility] MEDICINE [address] [place] [address] Daija Parry DO [address] [place] [address] Social History Tobacco Use Types Packs/Day Years [...] suspected to have Coronavirus/COVID-19? No / Unsure 05/17/2022 1:50 PM EST documented as of this encounter Plan of Treatment Upcoming Encounters Date Type Department Care Team ([facility] Contact Info) Description 08/19/2024 2:00 PM EDT Office Visit [facility] OPTOMETRY [address] [place] [address] Arielle Farr, OD [address] [place] [address] documented as of this encounter Visit Diagnoses Not on filedocumented in this encounter Additional Health Concerns Assessment Noted Time PHQ-9 Depression Total Score: 24 022 10:57 AM EST documented as of this encounter Care Teams Retail Management Trainee Relationship Specialty Start Date End Date Daija Parry DO [address] [place] [address] PCP - General Family Medicine 12/22/14 Lopez Marroquin, PharmD [address] [place] [id number] Pharmacist Internal Medicine 06/25/22 11/22/22 Ely Darling, AugustoD [address] [place] [address] Pharmacist Internal Medicine 11/22/22 documented as of this encounter
--- OUTSIDE RECORDS SUMMARY | 2024-05-08 13:19 | XMS_ITS | Clinical Summary ---
Author Organization 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 pantoprazole (ProtoNix) 40 MG EC tablet Take 1 tablet by mouth 2 times daily. Active pancrelipase, Vak-Vymy-Hokh, (Creon) 92205-95677 units capsule Take 2 capsules by mouth with breakfast, with lunch, with evening meal, and at bedtime. Active loperamide (Imodium) 2 MG capsule Take 2 capsules by mouth in the morning and at bedtime. Active metoclopramide (Reglan) 10 MG tablet Take 20 mg by mouth 3 times daily. 023 Active solifenacin (VESIcare) 5 MG tablet 023 Active Blood Pressure Monitor kitIndications: Essential hypertension Use to check blood pressure daily 1 kit 023 Active naloxone (Narcan) 4 mg/0.1 mL nasal spray FOR SUSPECTED OPIOID OVERDOSE. SPRAY 0.1mL IN ONE NOSTRIL. REPEAT IN ALTERNATE NOSTRIL 2-3 MINUTES IF NEEDED. SEEK MEDICAL ATTENTION IMMEDIATELY EVEN IF PATIENT RESPONDS. 2 each 3 023 Active zolpidem (Ambien) 10 MG tablet TAKE 1 TABLET BY MOUTH AT BEDTIME 84 tablet 023 Active Ventolin HFA 108 (90 Base) MCG/ACT inhalerIndicati ons:Mild persistent asthma, unspecified whether complicated INHALE 2 PUFFS BY MOUTH EVERY 4 TO 6 HOURS NEEDED 18 g 1 023 Active albuterol (2.5 MG/3ML) 0.083% nebulizer solution INHALE 1 AMPULE USING A NEBULIZER EVERY 4 HOURS NEEDED 90 mL 2 023 Active clonazePAM (KlonoPIN) 0.5 MG tablet Take 0.5 mg by mouth if needed in the morning, at noon, and at bedtime for anxiety. Active ergocalciferol (Vitamin D2) 1.25 MG (61251 UT) capsuleIndicati ons:Vitamin D deficiency Take 1 capsule (1.25 mg) by mouth 1 (one) time per week. 5 capsule 3 024 Active cholecalciferol (Vitamin D-3) 50 MCG (2000 UT) capsuleIndicati ons:Vitamin D deficiency Take 1 capsule (50 mcg) by mouth Once per day. 30 capsule Active Diclofenac Sodium 1 % gelIndications: Chronic low back pain, unspecified back pain laterality, unspecified whether sciatica present APPLY 2 GRAMS TOPICALLY TO AFFECTED AREA(S) TWICE DAILY 100 g 3 Active alosetron (Lotronex) 1 MG tablet Take 1 mg by mouth 2 times daily. Active Alcohol Swabs (Alcohol Prep) padsIndications :Type 2 diabetes mellitus without complication, without long-term current use of insulin ([facility]) Use one pad BID when checking blood glucose 100 each Active empagliflozin (Jardiance) 10 MGIndications:T ype 2 diabetes mellitus without complication, without long-term current use of insulin ([facility]) Take 1 tablet (10 mg) by mouth Once per day. 30 tablet 024 2024 Active glucose blood (FREESTYLE LITE) test stripIndication s:Type 2 diabetes mellitus without complication, without long-term current use of insulin ([facility]) Use to monitor blood glucose twice daily 100 each Active TRUEplus Lancets 33G miscIndications :Type 2 diabetes mellitus without complication, without long-term current use of insulin ([facility]) Use to test blood sugar 2 time(s) daily 100 each 11 Active Blood Glucose Monitoring Suppl (FreeStyle Raleigh Lite) w/Device kit Use to test blood sugar 3 times daily 1 kit Active Skin Protectants, Misc. (Minerin Creme) cream APPLY TOPICALLY TO DRY SKIN TWICE DAILY NEEDED 454 g 5 Active hydrALAZINE (Apresoline) 100 MG tabletIndicatio ns:Essential hypertension TAKE 1 TABLET BY MOUTH TWICE DAILY IN THE MORNING AND IN THE EVENING WITH FOOD 180 tablet 1 Active hydroCHLOROthia zide (HYDRODiuril) 25 MG tablet TAKE 1 TABLET BY MOUTH EVERY EVENING 90 tablet 1 Active montelukast (Singulair) 10 MG tablet TAKE 1 TABLET BY MOUTH EVERY EVENING 90 tablet 1 Active ondansetron (Zofran) 4 MG tablet TAKE 1 TABLET BY MOUTH THREE TIMES DAILY NEEDED FOR NAUSEA AND VOMITING Active Nystop 408569 UNIT/GM powder APPLY TOPICALLY TO THE AFFECTED AREA(S) 2 OR 3 TIMES DAILY Active mineral oil-hydrophil petrolat ointment Topical Ointment APPLY TO THE AFFECTED AREA(S) TWICE DAILY NEEDED Active pentosan polysulfate (Elmiron) 100 MG capsule Take 2 capsules (200 mg) by mouth 2 times daily. 120 capsule Active verapamil ER (Verelan) 240 MG 24 hr capsuleIndicati ons:Essential hypertension Take 1 capsule (240 mg) by mouth in the morning. 90 capsule 1 Active loratadine (Claritin) 10 MG tablet Take 1 tablet (10 mg) by mouth Once per day. 30 tablet 11 024 2024 Active famotidine (Pepcid) 40 MG tablet Take 1 tablet (40 mg) by mouth at bedtime. 30 tablet 5 024 2024 Active gabapentin (Neurontin) 400 MG capsule Take 1 capsule (400 mg) by mouth 3 times daily. 90 capsule 3 024 2024 Active levothyroxine (Synthroid, Levoxyl) 75 MCG tabletIndicatio ns:Hypothyroidi sm, unspecified type TAKE 1 TABLET BY MOUTH EVERY MORNING WITH 200 mcg 90 tablet 1 Active PARoxetine (Paxil) 10 MG tablet TAKE 1 TABLET BY MOUTH EVERY MORNING 30 tablet 1 024 Active ibuprofen 800 MG tabletIndicatio ns:Pain TAKE 1 TABLET BY MOUTH THREE TIMES DAILY WITH FOOD NEEDED FOR PAIN 60 tablet 2 024 Active traMADol (Ultram) 50 MG tabletIndicatio ns:Chronic bilateral low back pain with bilateral sciatica Take 1 tablet (50 mg) by mouth every 6 (six) hours if needed for severe pain for up to 28 days. 112 tablet 025 2024 Active Trulicity 0.75 MG/0.5ML solution auto-injectorIn dications:Type 2 diabetes mellitus without complication, without long-term current use of insulin (CMS/HCC) INJECT ONE PEN (=0.75MG) SUBCUTANEOUSLY ONCE A WEEK DIRECTED 2 mL 025 Active losartan (Cozaar) 100 MG tabletIndicatio ns:Essential hypertension TAKE 1 TABLET BY MOUTH EVERY EVENING 90 tablet 3 025 Active fluticasone furoate (Arnuity Ellipta) 200 MCG/ACT inhaler INHALE 1 PUFF BY MOUTH EVERY DAY. RINSE MOUTH AFTER USING. 30 each 2 025 Active furosemide (Lasix) 20 MG tablet TAKE 1 TABLET BY MOUTH EVERY DAY NEEDED SWELLING 30 tablet 2 025 Active acetaminophen (Tylenol 8 Hour) 650 MG ER tabletIndicatio ns:Pain TAKE 1 TABLET BY MOUTH EVERY 6 HOURS NEEDED FOR PAIN OR FEVER 100 tablet 3 025 Active levothyroxine (Synthroid, Levoxyl) 200 MCG tabletIndicatio ns:Hypothyroidi sm, unspecified type TAKE 1 TABLET BY MOUTH EVERY MORNING BEFORE BREAKFAST 90 tablet 025 Active dulaglutide (Trulicity) 0.75 MG/0.5ML solution pen-injectorInd ications:Type 2 diabetes mellitus without complication, without long-term current use of insulin (CMS/HCC) Inject 0.75 mg under the skin 1 (one) time per week. 2 mL 024 2024 Discontinued losartan (Cozaar) 100 MG tabletIndicatio ns:Essential hypertension Take 1 tablet (100 mg) by mouth in the morning. 90 tablet 3 024 2024 Discontinued triamcinolone (Nasacort) 55 MCG/ACT nasal inhaler Administer 2 sprays into each nostril at bedtime. 16.5 g 11 024 2024 acetaminophen (Tylenol 8 Hour) 650 MG ER tabletIndicatio ns:Pain TAKE 1 TABLET BY MOUTH EVERY 6 HOURS NEEDED FOR PAIN OR FEVER 100 tablet 3 024 2024 Discontinued levothyroxine (Synthroid, Levoxyl) 200 MCG tabletIndicatio ns:Hypothyroidi sm, unspecified type TAKE 1 TABLET BY MOUTH EVERY MORNING BEFORE BREAKFAST 90 tablet 024 2024 Discontinued furosemide (Lasix) 20 MG tablet TAKE 1 TABLET BY MOUTH EVERY DAY NEEDED FOR SWELLING 30 tablet 2 024 2024 Discontinued fluticasone furoate (Arnuity Ellipta) 200 MCG/ACT inhaler INHALE 1 PUFF EVERY DAY RINSE MOUTH AFTER USING. 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 Dental calculus 05/14/2023 Periodontal disease 05/14/2023 Localized gingival recession, severe 05/14/2023 Proteinuria 01/04/2023 05/03/2023 Fibromyalgia 05/31/2022 05/03/2023 Essential hypertension 05/26/2022 Type 2 diabetes mellitus 05/26/2022 Spondylosis, lumbar, with myelopathy 04/17/2022 Assessment & Plan (01/30/2024 11:55 AM EDT): Pill count and urine toxicology not performed as last three normal Patient participated to the extent of her abilities and inclination Continue to encourage non-pharmacologic methods of pain control Continue followup with chronic pain group in 1-2 months Assessment & Plan (01/01/2024 1:45 PM EDT): Pill count and urine toxicology as expected Patient participated to the extent of her abilities and inclination Continue to encourage non-pharmacologic methods of pain control Continue followup with chronic pain group in 1-2 months Assessment & Plan (10/30/2023 1:46 PM EDT): Pill count and urine toxicology not performed due to being on an every Continue followup with chronic pain group next month Assessment & Plan (06/05/2023 2:49 PM EST): Pill count and urine tox as expected Continue followup with chronic pain group next month Chronic migraine 05/03/2016 Hypothyroidism 01/27/2015 Allergic rhinitis 01/27/2015 Chronic interstitial cystitis 01/27/2015 Chronic low back pain 01/27/2015 Assessment & Plan (10/02/2023 2:12 PM EDT): Urine and pill count as expected Participated in chronic pain group to fullest extent possible Recovering after episode of pancreatitis (?) and changes in her living situation Assessment & Plan (07/31/2023 1:19 PM EDT): Urine and pill count as expected Participated in chronic pain group to fullest extent possible Recovering after episode of pancreatitis (?) Chronic gastroesophageal reflux disease 01/28/20 15 Generalized anxiety disorder 01/27/2015 Irritable bowel syndrome 01/27/2015 Mild persistent asthma 01/27/2015 BMI 50.0-59.9, adult 01/27/2015 Obstructive sleep apnea 01/27/2015 Overview (05/03/2023): Uses NIVV Peripheral venous insufficiency 01/27/2015 Major depression, recurrent, chronic 01/27/2015 Vitamin D deficiency 01/27/2015 Nephrolithiasis 01/27/2015 Resolved Problems Problem Noted Date Diagnosed Date Resolved Date Morbid obesity 07/12/2023 07/12/2023 Migraine 07/12/2023 07/12/2023 Missing teeth, acquired 05/14/202305/11 Dyspnea 05/03/2023 05/03/2023 07/12/2023 Patellofemoral arthralgia of right knee 02/21/2022 07/12/2023 Systolic hypertension 07/21/20212023 Essential hypertension 01/27/201505/26 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 Date Type Department Care Team Description 05/08/2024 Refill [facility] [address] [place] [address] Daija Parry DO Hypothyroidism, unspecified type 05/05/2024 Refill [facility] [address] [place] [address] Daija Parry DO Pain 05/03/2024 Refill [facility] [address] [place], [place] [phone] Daija Parry DO 05/02/2024 Telephone [facility] [address] [place] [address] Daija Parry DO Nurse Triage 05/01/2024 Telephone [facility] [address] [place], [place] [phone] Daija Parry DO Appointment Request 05/01/2024 Refill [facility] [address] [place] [address] Daija Parry DO Essential hypertension 04/29/2024 Refill [facility] [address] [place] [address] Daija Parry DO Type 2 diabetes mellitus without complication, without long-term current use of insulin ([facility]) 04/17/2024 Refill [facility] [address] [place] [address] Daija Parry DO Chronic bilateral low back pain with bilateral sciatica (Primary Dx) 03/24/2024 Refill [facility] [address] [place] [address] Daija Parry DO Hypothyroidism, unspecified type; Pain 03/13/2024 Orders Only [facility] [address] [place] [phone] Daija Parry DO 03/12/2024 Refill [facility] [address] [place] [address] Daija Parry DO Chronic bilateral low back pain with sciatica, sciatica laterality unspecified; Essential hypertension 03/10/2024 Telephone [facility] [address] [place] [address] Vu Nathan [place] DME from [employer] 03/10/2024 Refill [facility] [address] [place] [address] Daija Parry DO Chronic bilateral low back pain, unspecified whether sciatica present 03/05/2024 Refill [facility] [address] [place] [address] Daija Parry DO 03/04/2024 9:45 AM EST Office Visit [facility] [address] [place] [address] Pretty Greene MD Chronic, continuous use of opioids (Primary Dx); Degeneration of intervertebral disc of lumbar region with lower extremity pain; Fibromyalgia 03/04/2024 Telephone [facility] [address] [place] [address] Lakesha Graham, LONG SENSITIZED PAPER TESTER Renewal done, BPI Score 03/04/2024 Travel 03/02/2024 Refill [facility] [address] [place] [address] Daija Parry DO 03/02/2024 Refill [facility] [address] [place] [phone] Bria Salter FNP 02/11/2024 12:00 PM EST Office Visit [facility] [address] [place] [phone] Daija Parry DO Fatigue, unspecified type (Primary Dx); BOUDREAUX (dyspnea on exertion); Major depression, recurrent, chronic (CMS/HCC); AISHWARYA (obstructive sleep apnea); Hypothyroidism, unspecified type; Encounter for immunization 02/11/2024 Refill [facility] [address] [place] [address] Daija Parry DO Hypothyroidism, unspecified type 02/11/2024 Travel 02/08/2024 Refill [facility] [address] [place] [address] Daija Parry DO Chronic bilateral low back pain, unspecified whether sciatica present 02/07/2024 Telephone [facility] [address] [place] [phone] Daija Parry DO Med Refill from Last 3 Months Immunizations Name Administration Dates Next Due DTaP 09/19/1978, 6,1973,11/04,1973 Hep B, adult 12/11/2023, 5,01/07/2004,11/29 IPV 04/25/1988, 9,11/24/1975,12/11,1973 Influenza injectable quadriv alent IIV4 with preservative 01/04/2018,03/20/2017,01/24/2016,12/29 Influenza injectable quadriv alent preservative free 01/02/2023,01/20/2022,02/17/2021,01/13,12/30/2018 Influenza, IIV3, injectable 02/09/2014, 1 Influenza, Split (incl. emilie fied surface antigen) 01/18/2017,02/17/2013,12/21/2011 Influenza, seasonal, injecta ble, preservative free 02/11/2024 MMR 11/30/2003,04/25/1988 Moderna Covid-19 Vaccine 12+ 05/11/2021,07/14/19 21,06/15/2020 Pfizer Covid-19 Vaccine 12+ 02/11/2024, Pfizer Covid-19 Vaccine 12+ Bivalent 03/09/2022 Pneumococcal Conjugate PCV 20 04/30/2023 Pneumococcal Polysaccharide PPSV23 08/23/2015,,10/21/2012 TD (adult), 2 Lf tetanus tox oid, preservative free, adsorbed 05/23/1995,04/25/1988 Tdap 09/22/2014,02/06/2012 Family History Medical History Relation Name Comments Leukemia Mother Diabetes Mother's Brother Coronary artery disease Mother's Sister Stroke Mother's Sister Asthma Sister Relation Name Status Comments Mother Mother's Brother Mother's Sister Sister Social History Tobacco Use Types Packs/Day Years Used Date Smoking Tobacco: Never Passive Smoke Exposure: Never Smokeless Tobacco: Never Tobacco Cessation:Counseling Given: Not Answered Alcohol Use Standard Drinks/Week Comments Never 0 [...] Orientation Straight 02/06/2022 10 :15 AM EDT Last Filed Vital Signs Vital Sign Reading Time Taken Comments Blood Pressure 159/91 02/11/2024 12:14 PM EST Pulse 70 02/11/2024 12:14 PM EST Temperature 36.8 ??C (98.2 ??F) 02/11/2024 12:[address] Respiratory Rate 20 02/11/2024 12:14 PM EST Oxygen Saturation 99% 02/11/2024 12:14 PM EST Inhaled Oxygen Concentration - - Weight 124 kg (274 lb) 02/11/2024 12:14 PM EST Height 154.9 cm (5' 1 ) 02/11/2024 12:14 PM EST Body Mass Index 51.77 02/11/2024 12:14 PM EST Plan of Treatment Upcoming Encounters Date Type Department Care Team (Late st Contact Info) Description 08/19/2024 2:00 PM EDT Office Visit [facility] [address] [place] [address] Yordan, Arielle, OD [address] [place] [address] Health Maintenance Due Date Last Done Comments CT Colonography 1973 FIT DNA/Cologuard 1973 FIT 1973 FOBT 1973 Sigmoidoscopy 1973 Diabetes: Foot Exam 06/27/1983 Alcohol/Substance Use Screening 1985 Family Planning (PISQ) 1988 HPV/Cotest 06/27/2003 Colonoscopy 08/15/2022 08/15/2012 Colorectal Cancer Screening 08/15/2022 Zoster Vaccines (1 of 2) 06/27/2023 Dental Oral Exam 11/13/2023 05/14/2023, 07/15/2015 Dental Prophylaxis 11/13/2023 05/14/2023 Cervical Cancer Screening 11/25/2023 Pap Smear 11/25/2023 11/24/2020, 11/22/2020 Depression Monitoring (PHQ-9) 01/11/2024 07/12/2023, 07/12/2023 Dental X-Ray: Bitewings 05/15/2024 05/14/2023, 07/14 Diabetes: Hemoglobin A1C 06/09/2024 024, 08/01/2023, 05/03/2023, Additional history exists Depression Screening 07/11/2024 07/12/2023, 07/12/19 Diabetes: Urine Protein Screening 07/11/2024 07/12/2023, 05/03/2023, 01/02/2023, Additional history exists SDOH Screening 07/11/2024 07/12/2023 Lipid Panel 07/31/2024 08/01/2023, 04/10, 01/02/2023, Additional history exists DTaP/Tdap/Td Vaccines (8 - Td or Tdap) 09/22/2024 09/22/2014, 02/06/2012, 05/23/1995, Additional history exists Eye Exam 01/08/2025 01/08/2023, 1005/2022, 01/08/2023, Additional history exists Mammogram 02/13/2025 02/14/2024, 10/08, 10/29/2020, Additional history exists Tobacco Screening 03/04/2025 03/04/2024 Dental X-Ray: Full Mouth 05/15/2026 024, 08/18/2016, 07/15/2015 RSV Patients and Patients Aged 60 years or older (1 - 1-dose 75+ series) 2048 IPV Vaccines Completed 04/25/1988, 09/07, 11/24/1975, Additional history exists HIV Screening Completed 06/22/2021, 11/07, 03/13/2019 Hepatitis C Screening Completed 06/22/2021 , 11/24/2020, 03/13/2019 Pneumococcal Vaccine: 50+ Years Completed 04/30/2023, 08/23/2015, 09/22/2014, Additional history exists Hepatitis B Vaccines Completed 12/11/2023, 05/16/2004, 01/07/2004, Additional history exists COVID-19 Vaccine Completed 02/11/2024, , 03/09/2022, Additional history exists Influenza Vaccine Completed 02/11/2024, , 01/20/2022, Additional history exists HIB Vaccines Aged Out No longer eligi ble based on patient's age to complete this topic HPV Vaccines Aged Out No longer eligi ble based on patient's age to complete this topic Hepatitis A Vaccines Aged Out No long er eligible based on patient's age to complete this topic Meningococcal Vaccine Aged Out No juvencio caryn eligible based on patient's age to complete this topic RSV under 20 months Aged Out No longe r eligible based on patient's age to complete this topic Rotavirus Vaccines Aged Out No longer eligible based on patient's age to complete this topic Goals Goal Patient Goal Type Associated Problems Recent Progress Patient-Stated? Author Blood Pressure < 140/90 Blood Pressure 159/91(2023 12:14 PM EST) No Lopez Marroquin PharmD Hemoglobin A1c < 7 Result Component 5.4( 12:22 PM EDT) No Lopez Marroquin, PharmMahin Record your blood sugar as directed Result Component No Ely Darling PharmD Procedures Procedure Name Priority Date/Time Associated Diagnosis Comments POCT BENITO-14 URINE DRUG SCREEN Routine 03/04/2024 1:41 PM EST Chronic, continuous use of opioids BI MAMMOGRAM SCREENING TOMOSYNTHESIS BILATERAL Routine 02/14/2024 12:07 PM EST Encounter for screening mammogram for malignant neoplasm of breast POCT GLYCATED HEMOGLOBIN, TOTAL Routine 12/11/2023 12:22 PM EDT Type 2 diabetes mellitus without complication, without long-term current use of insulin ([facility]) LIPID PANEL, STANDARD Routine 08/01/2023 1:27 PM EDT Epigastric pain ALBUMIN, RANDOM URINE W/CREATININE Routine 07/12/2023 1:41 PM EDT Epigastric pain PROPHYLAXIS - ADULT Routine 05/14/2023 2 :00 PM EST Dental calculus Periodontal disease Localized gingival recession, severe PANORAMIC RADIOGRAPHIC IMAGE Routine 05/14/2023 2:00 PM EST Dental calculus Periodontal disease Missing teeth, acquired Localized gingival recession, severe BITEWINGS - 4 RADIOGRAPHIC IMAGES Routine 05/14/2023 2:00 PM EST Dental calculus Periodontal disease Missing teeth, acquired Localized gingival recession, severe PERIODIC ORAL EVALUATION - ESTABLISHED PATIENT Routine 05/14/2023 2:00 PM EST ZZZ HISTORICAL HEPATITIS C ANTIBODY RFLX Routine 06/22/2021 2:41 PM EDT ZZZ HISTORICAL HIV AB/AG Routine 06/22/2021 2:41 PM EDT THINPREP IMAGING SYSTEM PAP Routine 11/24/2020 6:42 AM EDT HM COLONOSCOPY Routine 08/15/2012 8:08 AM EDT from Last 3 Months or Most Recently Relevant to Health Maintenance Results * POCT BENITO-14 Urine Drug Screen (03/04/2024 1:41 PM EST) Urine Urine specimen obtained by clean catch procedure / Unknown 03/04/2024 1:41 PM EST Lakesha Peterson RN - 03/04/2024 1:41 PM EST UTOX cup Lot#[id number] Exp. 11/26/25 Internal Pass Control Negative for all substances us Pretty Greene MD POINT OF CARE TEST ENTER/EDIT ORDERABLES Final Result * BI Mammogram Screening Tomosynthesis Bilateral (02/14/2024 12:07 PM EST) Anatomical Region Laterality Modality Breast Bilateral Mammography 02/14/2024 12:0 7 PM EST Narrative 02/22/2024 4:11 PM EST ? [facility] ? [address] ?[place] [address] ? Mammography Report ? Signed ? Patient: Cuellar,Shereen ?MR#: [id number] ? : 1975 ?Acct:[id number] ? Age/Sex: 48 / F ?ADM Date: 02/14/24 ? Loc: HO.MAMMO ? Attending Dr: Daija Parry DO ? Ordering Physician: Daija Parry DO ?Results: 1N ?? egative ? Date of Service: 02/14/24 ?Follow Up: 1 Year From Orig ?? inal Mammogram ? Procedure(s): MM tomosynthesis screening BI ?? Accession Number(s): [id number] ? cc: Daija Parry DO ? EXAMINATION: ?? MM SCREENING DIGITAL BREAST TOMOSYNTHESIS, BILATERAL ? CLINICAL INFORMATION: ? Screening. Asymptomatic. ? COMPARISON: ?? Mammography: Comparison is made with available priors ? TECHNIQUE: ?? Digital breast mammography with tomosynthesis is performed in both the ?? craniocaudal and mediolateral oblique views along with computer-aided ?? detection (CAD). ? FINDINGS: ?? There are scattered areas of fibroglandular density (ACR BI-RADS breast ?? composition Category b). ? There are no significant masses, abnormal calcifications, or other ?? abnormalities. ? MM/MM tomosynthesis screening BI ?? IMPRESSION: ?? No mammographic evidence of malignancy. ? ASSESSMENT: ? BI-RADS BI-RADS 1 - Negative ? RECOMMENDATION: ?? Routine annual mammography screening. ? 1 year F/U ? This examination should not preclude the clinical evaluation of a ?? suspicious palpable abnormality. ? This patient's information was entered into a reminder system with a ?? target due date for their next mammogram. ? Electronically signed by: ??Sushila Moon DO ??02/22/2024 04:08 PM EST ? Dictated By: ?Sushila Moon DO ? Signed By: ?<Electronically signed by Sushila Moon, DO in OV> ? 02/22/24 1608 ? DD/ 1207 ? TD/TT: 02/14/24 1223 ? Cloth Cutter: ? Procedure Note Kortney, Image - 02/22/2024 [facility] [address] [place] [address] Mammography Report Signed Patient: Kira Cuellar#: [id number] : 1975Acct:[id number] Age/Sex: 48 / FADM Date: 02/14/24 Loc: HO.MAMMO Attending Dr: Daija Parry DO Ordering Physician: Daija Parryults: 1N egative Date of Service: 02/14/24Follow Up: 1 Year From Orig inal Mammogram Procedure(s): MM tomosynthesis screening BI Accession Number(s): [id number] cc: Daija Parry DO EXAMINATION: MM SCREENING DIGITAL BREAST TOMOSYNTHESIS, BILATERAL CLINICAL INFORMATION: Screening. Asymptomatic. COMPARISON: Mammography: Comparison is made with available priors TECHNIQUE: Digital breast mammography with tomosynthesis is performed in both the craniocaudal and mediolateral oblique views along with computer-aided detection (CAD). FINDINGS: There are scattered areas of fibroglandular density (ACR BI-RADS breast composition Category b). There are no significant masses, abnormal calcifications, or other abnormalities. MM/MM tomosynthesis screening BI IMPRESSION: No mammographic evidence of malignancy. ASSESSMENT: BI-RADS BI-RADS 1 - Negative RECOMMENDATION: Routine annual mammography screening. 1 year F/U This examination should not preclude the clinical evaluation of a suspicious palpable abnormality. This patient's information was entered into a reminder system with a target due date for their next mammogram. Electronically signed by: Sushila Moon DO 02/22/2024 04:08 PM [facility] Dictated By: Sushila Moon DO Signed By: <Electronically signed by Sushila Moon DO in OV> 02/22/24 1608 DD/ 1207 TD/TT: 02/14/24 1223 Cloth Cutter: Daija Parry DO IMG BI PROCEDURES Final Resu lt * POCT HGB A1C (12/11/2023 12:22 PM EDT) Hemoglobin A1C 5.4 4.0 - 6.0 % QC Media Lot # [id number] Lot# Expiration Date [id number] Blood 12/11/2023 12:2 2 PM EDT Daija Parry DO POINT OF CARE TEST ENTER/KATHY T ORDERABLES Final Result * Lipid Panel, Standard (08/01/2023 1:27 PM EDT) Triglycerides 64 <150 mg/dL [facility] Comment:Desirable Triglyceri de: less than 150 mg/dLBorderline High Triglyceride 150-199 mg/dLHigh Triglyceride: 200-499 mg/dLVery High Triglyceride: greater than or equal to 5OO mg/dL Cholesterol 150 <200 mg/dL [facility] Comment:Desirable Cholestero l: less than 200 mg/dLBorderline High Cholesterol: 200-239 mg/dLHigh Cholesterol: greater than 239 mg/dL LDL Cholesterol Calculated 89 <100 mg/dL [facility] Comment:Desirable LDL: less than 100 mg/dLNear Optimal/Above Optimal LDL: 110- 129 mg/dLBorderline High LDL: 130-159 mg/dLHigh LDL: 160-189 mg/dLVery High LDL: greater than or equal to 190 mg/dL HDL Cholesterol 49 >40 mg/dL [facility] Comment:Desirable HDL: great er than 40 mg/dL Note: This HDL assay may give artificially low results in patients with liver disease. Blood Venous blood specimen / Unknown 08/01/2023 1:27 PM EDT 08/01/2023 1:27 PM EDT us Daija Parry DO LAB BLOOD ORDERABLES Final R esult Performing Organization Address City/[facility] Co de Phone Number [facility] [address] [place] [address] [phone] * Albumin, Random Urine W/Creatinine (07/12/2023 1:41 PM EDT) Creatinine, Urine 110.18 mg/dL [facility] Microalbumin Urine 23.0 mg/L [facility] Microalbum Creatinine Ratio Ur 20.8 <30 ug/mg cr [facility] Comment:Albumin/Creatinine R atio Reference Ranges: Normal: < 30 ug/mg creatinine Microalbuminuria: 30 - 300 ug/mg creatinineClinical Albuminuria: > 300 ug/mg creatinine Urine (Urine, Random) 07/12/2023 1:41 PM EDT 07/12/2023 3:52 PM EDT Daija Parry DO LAB URINE ORDERABLES Final R esult Performing Organization Address City/[facility]/ZIP Co de Phone Number [facility] [address] [place] [address] [phone] * HEPATITIS C ANTIBODY RFLX (06/22/2021 2:41 PM EDT) Hepatitis C Antibody Nonreactive Nonreactive [facility] Comment: Antibodies to HCV not detected; does not exclude early acute HCV infection. 06/22/2021 2:41 PM EDT Diaja Brinda DO HISTORICAL/NON ORDERABLE LAB S Final Result Performing Organization Address [facility] de Phone Number [facility] [address] [place] [address], * HIV AB/AG (06/22/2021 2:41 PM EDT) [facility] HIV AB/AG Nonreactive Nonreactive [facility] Comment: HIV-1 p24 Ag and/or HIV-1/HIV-2 Ab not detected. ?? A test result that is nonreactive does not exclude the possibility of exposure to or infection with HIV-1 and/or HIV-2. Nonreactive results in this assay for individuals with prior exposure to HIV-1 and/or HIV-2 may be due to antigen and antibody levels that are below the limit of detection of this assay. ?? [facility] App[facility] HIV Ag/Ab Combo assay result and supplemental assay results should be interpreted in conjunction with the patient's clinical presentation, history and other laboratory results. ??If the results are inconsistent with clinical evidence, additional testing is suggested to confirm the result. Hepatitis B Surface Antibody NONREACTIVE Nonreactive [facility] Comment:Nonreactive: < 8.00 mIU/mL Hepatitis B Surface Antigen Negative Negative [facility] 06/22/2021 2:41 PM EDT Daija Parry DO HISTORICAL/NON ORDERABLE LAB S Final Result Performing Organization Address [facility] de Phone Number [facility] [address] [place] [address], * THINPREP TIS PAP (11/24/2020 6:42 AM EDT) [facility] Clinical Information: None given [facility] COMMENT SEE COMMENT [facility] Comment: EXPLANATORY NOTE: ? The Pap is a screening test for cervical cancer. It is ?? not a diagnostic test and is subject to false negative ?? and false positive results. It is most reliable when a ?? satisfactory sample, regularly obtained, is submitted ?? with relevant clinical findings and history, and when ?? the Pap result is evaluated along with historic and ?? current clinical information. ?? NO COLLECTION DATE RECEIVED. WE HAVE USED THE DATE THE SPECIMEN WAS RECEIVED BY THIS LABORATORY THE COLLECTION DATE. IF THIS IS INCORRECT, PLEASE CONTACT CLIENT SERVICES. PHONE NUMBER: ?? COMMENT: This Pap test has been evaluated with computer assisted technology. [facility] Interior Painter : SEE COMMENT [facility] Comment: ED, CT(ASCP) CT screening location: ?? [facility] ?? [address] [place] [address] ?? [place] [address] Interpretation/R esult: Negative for intraepithelial lesion or malignancy. [facility] LMP: NONE [facility] PATHOLOGIST: SEE COMMENT [facility] Comment: Sera Guzman M.D. Direct , Board Certified in Anatomic and Clinical Pathology and Cytopathology (electronic signature) Consulting Pathologist [facility] [address] [place] [address] Prev. BX: NONE [facility] Prev. PAP: NONE [facility] SOURCE: [facility] Statement Of Adequacy: SEE COMMENT [facility] Comment: Satisfactory for evaluation. Endocervical/transformation zone component present. Age and/or menstrual status not provided 11/24/2020 6:42 AM EDT us Daija Parry DO LAB PATHOLOGY ORDERABLES Fin al Result [facility] [address] [place] [address], * Hm Colonoscopy (08/15/2012 8:08 AM EDT) us Historical Provider HEALTH MAINTENANCE Final Result from Last 3 Months or Most Recently Relevant to Health Maintenance Insurance - [facility] Care Teams Turner Splitter Machine Operator Relationship Specialty Start Date End Date Daija Parry DO [address] [place] [phone] PCP - General Family Medicine 12/22/14 Ely Darling PharmD [address] [place] [address] Pharmacist Internal Medicine 11/22/22
--- OUTSIDE RECORDS SUMMARY | 2024-05-08 13:19 | XMS_ITS | Encounter Summary ---
Author Organization [employer] Address [address] [place] [address] 7[address] [place] [address] Care Team Providers Care Push Button Switch Assembler Name Role Phone Daija Parry DO Primary Care Provider [phone] Ely Darling PharmD Unavailable [phone] Encounter Details Date Type Department Care Team (Late st Contact Info) Description 07/19/2023 Orders Only [facility] [address] [place] [address] ProviderAnnel MD Social History Tobacco Use Types Packs/Day Years [...] with others, in a hotel, in a assisted, living outside on the street, on a [...] Description 08/19/2024 2:00 PM EDT Office Visit [facility] [address] [place] [address] Yordan, Arielle, OD [address] [place] [address] documented as of this encounter Goals Goal Patient Goal Type Associated Problems Recent Progress Patient-Stated? Author Blood Pressure < 140/90 Blood Pressure 159/91(2023 12:14 PM EST) No DellogLopez urena, PharmD Hemoglobin A1c < 7 Result Component 5.4( 12:22 PM EDT) No Dellogono Lopez, PharmD Record your blood sugar as directed Result Component No PuRobbin alanyssa, PharmD documented as of this encounter Procedures Procedure Name Priority Date/Time Associated Diagnosis Comments HM COLONOSCOPY Routine 08/15/2012 8:08 AM EDT documented in this encounter Results * Hm Colonoscopy (08/15/2012 8:08 AM EDT) us Historical Provider HEALTH MAINTENANCE Final Result documented in this encounter Visit Diagnoses Not on filedocumented in this encounter Additional Health Concerns Assessment Noted Time PHQ-9 Depression Total Score: 25 024 12:17 PM EDT documented as of this encounter Care Teams Push Button Switch Assembler Relationship Specialty Start Date End Date Daija Parry DO [address] [place], [place] [phone] PCP - General Family Medicine 12/22/14 Ely Darling PharmD [address] [place] [address] Pharmacist Internal Medicine 11/22/22 documented as of this encounter
--- OUTSIDE RECORDS SUMMARY | 2024-05-08 13:19 | XMS_ITS | Encounter Summary ---
Author Organization [employer] Address [address] [place] [address] 7 [place] [address] Care Team Providers Care Elementary School Director Name Role Phone Daija Parry DO Primary Care Provider [phone] Ely Darling PharmD Unavailable Reason for Visit * Reason Onset Date Comments Med Refill 02/07/2024 Encounter Details Date Type Department Care Team ([facility] st Contact Info) Description 02/07/2024 Telephone [facility] [address] [place], [place] [phone] Daija Parry DO [address] [place], [place] [phone] Med Refill Social History Tobacco Use Types [...] with others, in a hotel, in a mcc, living outside on the street, on a [...] the past 12 months, has t he [employer], [employer], oil or water company threatened to shut [...] Telephone Encounter - Lakesha Graham RN - 02/07/2024 2:07 PM EDT Per Molly, Tramadol last picked up 01/16/24. Refill due 02/13/24. Will forward to PCP on 02/11/24. * Telephone Encounter - Scarlett Smyth - 02/07/2024 2:00 PM EDT TC from pt requesting medication refill. Medications needing refill : traMADol (Ultram) 50 MG tablet To be sent to: [facility] - [place], [place] - [address] [facility] documented in this encounter Plan of Treatment Upcoming Encounters Date Type Department Care Team (Late st Contact Info) Description 08/19/2024 2:00 PM EDT Office Visit [facility] [address] [place], [place] [phone] Arielle Farr, OD [address] [place] [address] documented as of this encounter Goals Goal Patient Goal Type Associated Problems Recent Progress Patient-Stated? Author Blood Pressure < 140/90 Blood Pressure 159/91(2023 12:14 PM EST) No Lopez Marroquin, Ashish Hemoglobin A1c < 7 Result Component 5.4( 12:22 PM EDT) No Lopez Marroquin PharmMahin Record your blood sugar as directed Result Component No Ely Darling PharmD documented as of this encounter Visit Diagnoses Not on filedocumented in this encounter Additional Health Concerns Assessment Noted Time PHQ-9 Depression Total Score: 25 024 12:17 PM EDT documented as of this encounter Care Teams Elementary School Director Relationship Specialty Start Date End Date Daija Parry DO [address] [place] [address] PCP - General Family Medicine 12/22/14 Ely Darling PharmD [address] [place] [address] Pharmacist Internal Medicine 11/22/22 documented as of this encounter
--- OUTSIDE RECORDS SUMMARY | 2024-05-08 13:19 | XMS_ITS | Encounter Summary ---
Author Organization [employer] Address [address] [place] [address] 7[address] [place] [address] Care Team Providers Care General Dentist Name Role Phone Daija Parry DO Primary Care Provider Lopez Marroquin PharmD Unavailable Unavail able Ely Darling PharmD Unavailable Reason for Visit * Reason Onset Date Comments Med Refill 06/12/2022 Encounter Details Date Type Department Care Team (Late st Contact Info) Description 06/12/2022 Refill [facility] [address] [place], [place] [phone] Daija Parry DO [address] [place], [place] [phone] Generalized anxiety disorder (Primary Dx) Social History Tobacco Use Types [...] Miscellaneous Notes * Telephone Encounter - Lesley Morris Juan - 06/12/2022 9:48 AM EST Tc from pt requesting med refill on zolpidem (Ambien) 10 MG tablet Please sent to [facility] - [place], [place] - [address] [facility] documented in this encounter Plan of Treatment Upcoming Encounters Date Type Department Care Team (Late st Contact Info) Description 08/19/2024 2:00 PM EDT Office Visit [facility] [address] [place] [address] Arielle Farr, OD [address] [place] [address] documented as of this encounter Visit Diagnoses Diagnosis Generalized anxiety disorder- Primary documented in this encounter Additional Health Concerns Assessment Noted Time PHQ-9 Depression Total Score: 24 023 11:12 AM EST documented as of this encounter Care Teams General Dentist Relationship Specialty Start Date End Date Daija Parry DO [address] [place] [address] PCP - General Family Medicine 12/22/14 Lopez Marroquin, AugustoD [address] [place] [phone] Pharmacist Internal Medicine 06/25/22 11/22/22 Ely Darling PharmD [address] [place] [address] Pharmacist Internal Medicine 11/22/22 documented as of this encounter
--- OUTSIDE RECORDS SUMMARY | 2024-05-08 13:19 | XMS_ITS | Clinical Summary ---
Author Organization [facility] Address [address] [place] [phone] Phone Care Team Providers Care Vice President Of Communications Name Role Phone Daija Parry DO Primary Care Provider Unava ilable Allergies Active Allergy Reactions Criticality Noted Date Comments Cefuroxime 01/04/2023 Medications acetaminophen (TYLENOL) 325 MG tablet Take 650 mg by mouth in the morning and 650 mg in the evening. Active albuterol HFA (PROVENTIL HFA;VENTOLIN HFA) 108 (90 Base) MCG/ACT inhaler Inhale 2 puffs every 6 (six) hours if needed for wheezing Active Cetirizine HCl 10 MG capsule Take 1 tablet by mouth 1 (one) time each day Active clonazePAM (KlonoPIN) 0.5 MG tablet Take 0.5 mg by mouth in the morning and 0.5 mg in the evening. Active cyclobenzaprine (FLEXERIL) 10 MG tablet Take 10 mg by mouth 3 (three) times a day if needed for muscle spasms Active Dulaglutide 0.75 MG/0.5ML solution pen-injector Inject 1 Syringe under the skin per week Active Eluxadoline 75 MG tablet Take 75 mg by mouth 1 (one) time each day Active Empagliflozin 10 MG tablet Take 10 mg by mouth 1 (one) time each day in the morning Active fluticasone (VERAMYST) 27.5 MCG/SPRAY nasal spray Administer 2 sprays into each nostril 1 (one) time each day Active furosemide (LASIX) 40 MG tablet Take 40 mg by mouth in the morning and 40 mg in the evening. Active gabapentin (NEURONTIN) 400 MG capsule Take 600 mg by mouth in the morning and 600 mg in the evening and 600 mg before bedtime. Active hydrALAZINE 100 MG tablet Take 100 mg by mouth in the morning and 100 mg in the evening. Active hydroCHLOROthia zide 25 MG tablet Take 25 mg by mouth 1 (one) time each day Active ibuprofen (ADVIL,MOTRIN) 800 MG tablet Take 800 mg by mouth every 6 (six) hours if needed for mild pain Active levothyroxine (SYNTHROID, LEVOTHROID) 200 MCG tablet Take 200 mcg by mouth 1 (one) time each day Active levothyroxine sodium (TIROSINT) 75 MCG capsule Take 75 mcg by mouth 1 (one) time each day Active loperamide (IMODIUM) 2 MG capsule Take 4 mg by mouth 4 (four) times a day if needed for diarrhea Active losartan (COZAAR) 100 MG tablet Take 100 mg by mouth 1 (one) time each day Active montelukast (SINGULAIR) 10 MG tablet Take 10 mg by mouth every night Active ondansetron (ZOFRAN) 4 MG tablet Take 4 mg by mouth every 8 (eight) hours if needed for nausea or vomiting Active pantoprazole (PROTONIX) 40 MG EC tablet Take 40 mg by mouth in the morning and 40 mg in the evening. Do not crush, chew, or split.. Active solifenacin (VESICARE) 10 MG tablet Take 10 mg by mouth 1 (one) time each day Swallow tablet whole; do not crush, chew, or split. Active traMADol (ULTRAM) 50 MG tablet Take 50 mg by mouth every 6 (six) hours if needed for moderate pain Active albuterol HFA (PROVENTIL HFA;VENTOLIN HFA) 108 (90 Base) MCG/ACT inhaler Inhale 2 puffs every 6 (six) hours if needed for wheezing Active zolpidem (AMBIEN) 10 MG tablet Take 10 mg by mouth at night if needed for sleep Active lisinopril 20 MG tablet Take 20 mg by mouth 1 (one) time each day Active tiZANidine (ZANAFLEX) 2 MG tablet Take 2 mg by mouth every 6 (six) hours if needed for muscle spasms Active metoclopramide (REGLAN) 10 MG tablet Take 10 mg by mouth in the morning and 10 mg at noon and 10 mg in the evening and 10 mg before bedtime. Active imipramine (TOFRANIL) 50 MG tablet Take 50 mg by mouth every night Active verapamil SR (CALAN-SR) 240 MG CR tablet Take 240 mg by mouth every night Do not crush or chew. Active pancrelipase, Kvp-Ncyf-Ttnv, (Creon) 15801-34653 units capsule Take 1 capsule by mouth in the morning and 1 capsule at noon and 1 capsule in the evening. Take with meals. 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 Hypertension 05/31/2022 Lumbar spondylosis 05/31/2022 Morbid obesity 05/31/2022 Chronic interstitial cystitis 01/27/2015 Irritable bowel syndrome 01/27/2015 Obstructive sleep apnea of adult 01/27/2015 Overview (05/31/2022): Uses NIVV Peripheral venous insufficiency 01/27/2015 Renal stone 01/27/2015 Vitamin D deficiency 01/27/2015 Family History Medical History Relation Comments Heart disease Brother Cancer Mother Relation Status Comments Brother Mother Social History Tobacco Use Types Packs/Day Years Used Date Smoking Tobacco: Never Smokeless Tobacco: Never Tobacco Cessation:Counseling Given: Not Answered Alcohol Use Standard Drinks/Week Comments Never 0 (1 standard drink = 0.6 oz pur e alcohol) Comments Unknown Sex and Gender Information Value Date Recorded Sex Assigned at Not on file Legal Sex Female 3:28 PM EST Gender Identity Not on file Sexual Orientation Not on file Last Filed Vital Signs Vital Sign Reading Time Taken Comments Blood Pressure - - Pulse 83 01/04/2023 3:12 PM EDT Temperature - - Respiratory Rate - - Oxygen Saturation - - Inhaled Oxygen Concentration - - Weight 132 kg (290 lb) 01/04/2023 3:12 PM EDT Height - - Body Mass Index - - Plan of Treatment Health Maintenance Due Date Last Done Comments Breast Cancer Screening 1975 Hepatitis B Vaccine (1 of 3 - 19+ 3-dose series) 1992 05/16/2004, 01/07/2004, 11/30/2003 Pneumococcal Vaccine: Pediat rics (0 to 5 Years) and At-Risk Patients (6 to 64 Years) (3 of 3 - PCV) 09/23/2015 09/22/2014, 10/21/2012 Diabetes: Ophthalmology Exam 03/21/2022 Diabetes: Pedal Pulse Checked 03/21/2022 Diabetes: Sensory Foot Exam 03/21/2022 Diabetes: Visual Foot Exam 03/21/2022 Colorectal Cancer Screening: Annual FOBT 2022 Colorectal Cancer Screening: Colonoscopy 2022 Colorectal Cancer Screening: Sigmoidoscopy 2022 Diabetes: Hemoglobin A1C 04/03/2023 023, 11/22/2022, 03/09/2022, Additional history exists Influenza Vaccine (#1) 2023 3, 01/20/2022, 02/17/2021, Additional history exists Procedures Procedure Name Priority Date/Time Associated Diagnosis Comments EXT RESULT ENTRY Routine 03/09/2022 from Last 3 Months or Most Recently Relevant to Health Maintenance Results * (ABNORMAL) EXT RESULT ENTRY (03/09/2022) WBC 13.7(A) 3.3 - 10.0 10*3/ML Red Blood Cell Count 4.58 Hemoglobin 13.9 12.0 - 16.0 Hematocrit 41.0 36.0 - 46.0 Platelets 339 150 - 399 10*3/UL MCV 89.5 82.0 - 108.0 Sodium 136(A) 137 - 147 Potassium 4.6 3.4 - 5.5 Chloride 102.0 99.0 - 108.0 Carbon Dioxide 26 mmol/L Glucose 126 60 - 200 BUN 20 4 - 21 mg/dL Creatinine 0.74 0.50 - 1.10 mg/dL Total Protein 7.4 6.4 - 8.2 G/DL Albumin 4.0 3.5 - 5.0 g/dL Calcium 9.6 8.7 - 10.7 mg/dL eGFR Non-Afr [place] 100 Total Bilirubin 0.4 MG/DL Bilirubin Direct 0.1 ALT (SGPT) 24 U/L AST (SGOT) 8 U/L Alkaline Phosphatase 81 U/L (TSH) Thyroid Stimulating Hormone 0.31 Free T4 2.2 ng/dL Hemoglobin A1C 6.6(A) 4.0 - 6.0 Triglycerides 71 Cholesterol, Total 142 HDL 57 mg/dL LDL-Calculated 70 Chol/HDL Ratio (External Entry) 2.5 Non HDL Cholesterol 85 03/09/2022 us Historical Provider LAB BLOOD ORDERABLES Yesi l Result from Last 3 Months or Most Recently Relevant to Health Maintenance Insurance [employer] D[employer] 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
--- OUTSIDE RECORDS SUMMARY | 2024-05-08 13:19 | XMS_ITS | Encounter Summary ---
Author Organization [employer] [facility] Address [address] [place] [address] [address] [place] [address] Care Team Providers Care Procurement Professional Logistics Name Role Phone Daija Parry DO Primary Care Provider DelLopez moreno PharmD Unavailable Unavail able Ely Darling PharmD Unavailable Encounter Details Date Type Department Care Team ([facility] Contact Info) Description 03/13/2022 Orders Only [facility] [address] [place] [address] Daija Parry DO [address] [place] [address] Social History Tobacco Use Types Packs/Day Years [...] suspected to have Coronavirus/COVID-19? No / Unsure 03/09/2022 9:49 AM EST documented as of this encounter Plan of Treatment Upcoming Encounters Date Type Department Care Team (Late Contact Info) Description 08/19/2024 2:00 PM EDT Office Visit [facility] [address] [place] [address] Arielle Farr, OD [address] [place] [address] documented as of this encounter Procedures Procedure Name Priority Date/Time Associated Diagnosis Comments ALBUMIN, RANDOM URINE W/CREATININE Routine 01/02/2023 10:15 AM EDT CBC WITH AUTO DIFFERENTIAL Routine 06/29/2022 3:06 PM EDT TSH Routine 06/29/2022 3:06 PM EDT T4, FREE Routine 06/29/2022 3:06 PM EDT HEMOGLOBIN A1C Routine 06/29/2022 3:06 PM EDT BASIC METABOLIC PANEL Routine 06/29/2022 3:06 PM EDT documented in this encounter Results * Albumin, Random Urine W/Creatinine (01/02/2023 10:15 AM EDT) Creatinine, Urine 326.51 mg/dL [facility] Microalbumin Urine 24.0 mg/L [facility] Microalbum Creatinine Ratio Ur 7.3 <30 ug/mg cr [facility] Comment:Albumin/Creatinine R atio Reference Ranges: Normal: < 30 ug/mg creatinine Microalbuminuria: 30 - 300 ug/mg creatinineClinical Albuminuria: > 300 ug/mg creatinine 01/02/2023 10:1 5 AM EDT 01/02/2023 11:37 AM EDT us Daija Parry DO LAB URINE ORDERABLES Final R esult [facility] [address] [place] [phone] [phone] * (ABNORMAL) TSH (06/29/2022 3:06 PM EDT) Thyroid Stimulating Hormone 8.15(H) 0.32 - 4.0 uIU/mL [facility] Comment:Note: A sustained TS H level above 2.5 uIU/mL may warrant further investigation. TSH 3rd Generation ([facility]) 06/29/2022 3:06 PM EDT 06/29/2022 3:06 PM EDT [facility] External Provider LAB BLO OD ORDERABLES Final Result Performing Organization Address [facility] Co de Phone Number [facility] [address] [place] [phone] * T4, Free (06/29/2022 3:06 PM EDT) Pathologist [facility] Free T4 (Free Thyroxine) 0.77 0.71 - 1.85 ng/dL [facility] 06/29/2022 3:06 PM EDT 06/29/2022 3:06 PM EDT [facility] External Provider LAB BLO OD ORDERABLES Final Result Performing Organization Address [facility] de Phone Number [facility] [address] [place] [phone] * (ABNORMAL) Basic Metabolic Panel (06/29/2022 3:06 PM EDT) Pathologist [facility] Sodium 138 135 - 145 mmol/L [facility] Potassium 4.3 3.3 - 5.1 mmol/L [facility] Comment:Slight Hemolysis Chloride 104 96 - 108 mmol/L [facility] Carbon Dioxide 27 22 - 29 mmol/L [facility] Anion Gap 11(L) 12 - 20 [facility] Urea Nitrogen (BUN) 13 9 - 16 mg/dL [facility] Creatinine, Serum 0.71 0.5 - 1.4 mg/dL [facility] Estimated Glomerular Filt Rate >60 [facility] Comment:NOTE: For -Am erican individuals, multiply the result by 1.210.Chronic Kidney Disease: Estimated GFR < 60 mL/min/1.59t7Piepzi Kidney Disease: Estimated GFR < 15 mL/min/1.73m2 Glucose 113 60 - 115 mg/dL [facility] Calcium 9.2 8.4 - 10.2 mg/dL [facility] 06/29/2022 3:06 PM EDT 06/29/2022 3:06 PM EDT [facility] External Provider LAB BLO OD ORDERABLES Final Result Performing Organization Address [facility] Co de Phone Number [facility] [address] [place] [phone] * Hemoglobin A1c (06/29/2022 3:06 PM EDT) Hemoglobin A1c 6.7 % [facility] Comment:Hemoglobin A1C Refer ence Range Adults: 4.8 - 6.0 % Non diabetic: < 6.0 % Goal: < 7.0 %Additional Action Suggested: > 8.0 %Note: Hemoglobin A1c results are invalid for patients with abnormal amounts of HbF. Blood transfusions may impact the HbA1c concentration in the patient sample. Estimated Average Glucose 146 mg/dL [facility] Comment:eAG = Estimated ave rage glucose which is %A1C expressed asaverage glucose, using the formula of the C0N-QjphhnjCicpwcb Glucose study (ADAG), Diabetes Care, Vol.31,#8,2007 06/29/2022 3:06 PM EDT 06/29/2022 3:06 PM EDT [facility] External Provider LAB BLO OD ORDERABLES Final Result Performing Organization Address [facility] Co de Phone Number [facility] [address] [place] [phone] * (ABNORMAL) CBC auto differential (06/29/2022 3:06 PM EDT) White Blood Count 9.9 4.8 - 10.8 X10*3/uL [facility] Red Blood Count 4.49 4.20 - 5.50 X10*6/uL [facility] Hemoglobin 13.8 12.0 - 16.0 g/dl [facility] Hematocrit 40.2 37.0 - 47.0 % [facility] Mean Corpuscular Volume 89.5 80.0 - 98.0 fL [facility] Mean Corpuscular Hemoglobin 30.7 27.0 - 33.0 pg [facility] Mean Corpuscular HGB Conc 34.3 31.0 - 35.0 g/dl [facility] Red Cell Distribution Width 13.2 11.0 - 16.0 % [facility] Platelet Count 277 160 - 400 X10*3/uL [facility] Mean Platelet Volume 9.3(L) 9.4 - 12.3 fL [facility] Neutrophils Percent Auto 74.2(H) 45 - 73 % [facility] Imm Gran Pct Auto 0.4 0.0 - 0.4 % [facility] Lymphocytes Percent Auto 17.4(L) 20 - 40 % [facility] Monocytes Percent Auto 7.1 2 - 11 % [facility] Eosinophils Percent Auto 0.6 0 - 4 % [facility] Basophils Percent Auto 0.3 0 - 2 % [facility] NRBC Pct Auto 0.0 0.0 - 0.2 /100WBC [facility] Neutrophils Absolute Auto 7.4 2.0 - 8.3 x10*3/uL [facility] Imm Gran Abs Auto 0.04(H) 0.00 - 0.03 X10*3/uL [facility] Lymphocytes Absolute Auto 1.7 1.2 - 4.9 X10*3/uL [facility] Monocytes Absolute Auto 0.7 0.1 - 1.2 X10*3/uL [facility] Eosinophils Absolute Auto 0.1 0.0 - 0.4 X10*3/uL [facility] Basophils Absolute Auto 0.0 0.0 - 0.2 X10*3/uL [facility] NRBC Abs Auto 0.000 0.0 - 0.012 X10*3/uL [facility] 06/29/2022 3:06 PM EDT 06/29/2022 3:06 PM EDT [facility] External Provider LAB BLO OD ORDERABLES Final Result [facility] [address] [place] [phone] documented in this encounter Visit Diagnoses Not on filedocumented in this encounter Additional Health Concerns Assessment Noted Time PHQ-9 Depression Total Score: 24 022 10:57 AM EST documented as of this encounter Care Teams Procurement Professional Logistics Relationship Specialty Start Date End Date Daija Parry DO [address] [place] [address] PCP - General Family Medicine 12/22/14 Lopez Marroquin, PharmD [address] [place] [phone] Pharmacist Internal Medicine 06/25/22 11/22/22 Ely Darling, AugustoD [address] [place] [address] Pharmacist Internal Medicine 11/22/22 documented as of this encounter
--- OUTSIDE RECORDS SUMMARY | 2024-05-08 13:19 | XMS_ITS | Encounter Summary ---
Author Organization [employer] Address [address] [place] [address] [address] [place] [address] Care Team Providers Care Aviation Safety Technician Name Role Phone Daija Parry DO Primary Care Provider [phone] Ely Darling PharmD Unavailable Reason for Visit * Reason Comments Med Refill Encounter Details Date Type Department Care Team ([facility] st Contact Info) Description 05/08/2024 Refill [facility] [address] [place] [address] Daija Parry DO [address] [place], [place] [phone] Hypothyroidism, unspecified type Social History Tobacco Use [...] Description 08/19/2024 2:00 PM EDT Office Visit [facility] OPTOMETRY [address] [place] [address] Arielle Farr, OD [address] [place] [address] documented as of this encounter Goals Goal [...] documented as of this encounter Care Teams Aviation Safety Technician Relationship Specialty Start Date End Date Daija Parry DO [address] [place] [address] PCP - General Family Medicine 12/22/14 Ely Darling PharmD [address] [place] [address] Pharmacist Internal Medicine 11/22/22 documented as of this encounter
--- OUTSIDE RECORDS SUMMARY | 2024-05-08 13:19 | XMS_ITS | Data Portability ---
Author Organization Verisim [facility], [facility] Address [address] [place] [id number] Care Team Providers Care Recruiting Specialist Name Role Phone [facility] Primary Care Provider BRANDY SOARES Primary Care Provider [phone] [facility] OTHER Assessment Encounter Date Assessment Date Assessment LastModified by Organization Details LastModified Time 05/02/2024 05/02/2024 I provided real -time medical direction via phone for this encounter, and was available for additional phone based assistance as needed. I have reviewed and agree with the Assessment and Plan as documented by the Line Prep Cook. We discussed the diagnostic uncertainty of home visits and the risk associated with this. In this case the patient and I felt this to be an acceptable and reasonable amount of risk given the benefit of avoiding an ED visit. The patient given the opportunity to ask questions. Advised if develops CP/severe SOB/turning blue/uncontrolle d n/v/d or black/bloody emesis or stool/ AMS/ syncope/ hi fever unresponsive to APAP to call 911- she verbalized understanding of instruction [email or web address] Not available 05/02/2024 15:50:45 Plan of Treatment Reminders Order Date Submit Date Provider Last Modified By Organization Details Last Modified Time Details Appointments None recorded. Lab rapid SARS CoV 2 Ag, QL IA, respiratory specimen 2024 025 [email or web address] 0 [facility], [address] [place] [address], [id number], 5 12:56:28 rapid flu (A+B) 2024 025 [email or web address] 0 [facility], [address] [place] [address], [id number], 5 12:56:28 glucose, fingerstick , blood 2024 025 [email or web address] 0 [facility], [address] [place] [address], [id number], 5 12:57:15 Referral None recorded. Procedures None recorded. Surgeries None recorded. Imaging None recorded. Medication Orders azithromyci n 250 mg tablet 2024 025 [email or web address] 0 [facility], [address] [place] [address], [id number], 5 12:56:28 azithromyci n 250 mg tablet 2024 025 [facility], [address] [place] [address], [id number], 5 17:00:20 ondansetron 4 mg disintegrat ing tablet 2024 025 [email or web address] 0 [facility], [address] [place] [address], [id number], 5 12:56:28 ondansetron 4 mg disintegrat ing tablet 2024 025 [facility], [address] [place] [address], [id number], 5 16:49:42 benzonatate 200 mg capsule 2024 025 [facility], [address] [place] [address], [id number], 5 17:00:20 albuterol sulfate HFA 90 mcg/actuati on aerosol inhaler 2024 025 [facility], [address] [place] [address], [id number], 5 17:00:19 Patient TargetsNo targets recorded. Patient InstructionsNo instructions recorded. Reason for Referral None Reported. Results Created Date Observation Date Name Description Value Unit Range Abnormal Flag Note LastModifiedBy Organization Detail LastModifiedTime 05/02/1905/02/2024 gluco se, teresa moreira k, blood Blood Glucose: mg/dl 136 Not Available [address], [phone], 05/02/2024 12:56:44 05/02/1905/02/2024 rapid flu (A+B) Flu negati ve Not Available [facility] ed [address] [place] [address], [phone], 05/02/2024 12:52:10 05/02/1905/02/2024 rapid SARS CoV 2 Ag, QL IA, respi rator y speci men rapid SARS CoV 2 Ag, QL IA, respiratory specimen negati ve Not Available [facility] ed [address] [place] [address], [id number], 05/02/2024 12:52:05 Result Notes None recorded. Medical Equipment None Reported. Allergies Allergen ID Allergen Name Allergen Category Reaction Reaction Severity Criticality Documentation Date Start Date Code Code System Note Provider Name and Address Organization Details Recorded Time 99809 cefuroxim e Not available Not available Not available Not available 05/02/2024 2194 RxNorm Not Available [facility] 09:[facility]20 Medications Name Sig Start Date Stop Date Status Note LastModified by Organization Details LastModified Time cyclobenzapr ine 10 mg tablet TAKE 1 TABLET BY MOUTH AT BEDTIME NEEDED FOR MUSCLE SPASMS / FOR PAIN active Not Available Not Available No t Available furosemide 40 mg tablet TAKE 1 TABLET BY MOUTH EVERY MORNING active Not Available Not Available No t Available fluticasone 250 mcg-salmeter ol 50 mcg/dose blistr powdr for inhalation INHALE 1 PUFF BY MOUTH TWICE DAILY. RINSE MOUTH AFTER USING. active Not Available Not Available No t Available imipramine 50 mg tablet TAKE 3 TABLETS BY MOUTH EVERY DAY AT BEDTIME active Not Available Not Available No t Available acetaminophe n 325 mg tablet TAKE 2 TABLETS BY MOUTH EVERY 8 HOURS NEEDED FOR PAIN active Not Available Not Available No t Available tizanidine 2 mg tablet TAKE 1 TABLET BY MOUTH TWICE DAILY NEEDED FOR MUSCLE SPASMS active Not Available Not Available No t Available albuterol sulfate 2.5 mg/3 mL (0.083 %) solution for nebulization INHALE 1 AMPULE USING A NEBULIZER EVERY 4 HOURS NEEDED active Not Available Not Available No t Available loperamide 2 mg capsule TAKE 2 CAPSULES BY MOUTH TWICE DAILY active Not Available Not Available No t Available cetirizine 10 mg tablet TAKE 1 TABLET BY MOUTH EVERY DAY active Not Available Not Available No t Available azithromycin 250 mg tablet TAKE 1 TABLET (250 MG) BY ORAL ROUTE ONCE DAILY FOR 4 DAYS-take with food and start prescriptio n on 05/03/2024(h ad dose in home today) 2024 active Not Available Not Available Not Avai lable ibuprofen 800 mg tablet TAKE 1 TABLET BY MOUTH THREE TIMES DAILY WITH FOOD NEEDED FOR PAIN active Not Available Not Available No t Available tizanidine 4 mg tablet TAKE 1 TABLET BY MOUTH EVERY 6 TO 8 HOURS NEEDED. DO NOT EXCEED 3 DOSES IN 24 HOURS active Not Available Not Available No t Available benzonatate 200 mg capsule Take 1 capsule 3 times a day by oral route as needed, for cough. 2024 active Not Available Not Available Not Avai lable ondansetron HCl 4 mg tablet TAKE 1 TABLET BY MOUTH THREE TIMES DAILY NEEDED FOR NAUSEA AND VOMITING active Not Available Not Available No t Available clonazepam 0.5 mg tablet TAKE 1 TABLET BY MOUTH TWICE DAILY NEEDED active Not Available Not Available No t Available gabapentin 400 mg capsule TAKE 1 CAPSULE BY MOUTH THREE TIMES DAILY IN THE MORNING, EVENING, AND BEDTIME active Not Available Not Available Not Available Elmiron 100 mg capsule TAKE 2 CAPSULES BY MOUTH TWICE DAILY IN THE MORNING AND EVENING active Not Available Not Available Not Available hydralazine 25 mg tablet TAKE 1 TABLET BY MOUTH TWICE DAILY IN THE MORNING AND IN THE EVENING WITH FOOD active Not Available Not Available No t Available terazosin 1 mg capsule TAKE 1 CAPSULE BY MOUTH AT BEDTIME active Not Available Not Available No t Available tramadol 50 mg tablet TAKE 1 TABLET BY MOUTH EVERY 6 HOURS NEEDED FOR SEVERE PAIN active Not Available Not Available Not Available butalbital-a cetaminophen -caffeine 50 mg-325 mg-40 mg tablet TAKE 1 TABLET BY MOUTH EVERY 6 HOURS NEEDED FOR PAIN. NO MORE THAN 2 TABLETS PER DAY AND NO MORE THAN 3 DOSES PER WEEK & 8 TABLETS PER MONTH active Not Available Not Available No t Available acetaminophe n ER 650 mg tablet,exten ded release TAKE 1 TABLET BY MOUTH EVERY 6 HOURS NEEDED FOR PAIN OR FOR FEVER active Not Available Not Available No t Available baclofen 20 mg tablet TAKE 1 TABLET BY MOUTH THREE TIMES DAILY active Not Available Not Available Not Available verapamil ER 180 mg 24 hr capsule,exte nded release TAKE 2 CAPSULES BY MOUTH ONCE DAILY IN THE MORNING WITH FOOD active Not Available Not Available No t Available Lice Treatment (permethrin) 1 % topical liquid APPLY TO SCALP, LEAVE ON FOR 10 MINUTES, RINSE WELL THEN COMB OUT NITS. REPEAT IN 7 DAYS DIRECTED. active Not Available Not Available No t Available betamethason e valerate 0.1 % topical cream APPLY A THIN LAYER TOPICALLY TO AFFECTED AREA(S) TWICE DAILY active Not Available Not Available Not Available baclofen 10 mg tablet TAKE 1 TABLET BY MOUTH FOUR TIMES DAILY NEEDED FOR MUSCLE SPASMS active Not Available Not Available No t Available levothyroxin e 50 mcg tablet TAKE 1 TABLET BY MOUTH EVERY MORNING WITH 200mcg TABLET active Not Available Not Available No t Available pantoprazole 40 mg tablet,delay ed release TAKE 1 TABLET BY MOUTH TWICE DAILY IN THE MORNING AND IN THE EVENING active Not Available Not Available No t Available oseltamivir 75 mg capsule TAKE 1 CAPSULE BY MOUTH TWICE DAILY UNTIL FINISHED active Not Available Not Available No t Available petrolatum topical ointment USE 2 TIMES PER DAY NEEDED active Not Available Not Available No t Available diclofenac potassium 50 mg tablet TAKE 1 TABLET BY MOUTH THREE TIMES DAILY NEEDED FOR PAIN WITH FOOD FOR 5 DAYS active Not Available Not Available N ot Available montelukast 10 mg tablet TAKE 1 TABLET BY MOUTH EVERY EVENING active Not Available Not Available No t Available levothyroxin e 200 mcg tablet TAKE 1 TABLET BY MOUTH EVERY MORNING WITH 50mcg TABLET active Not Available Not Available No t Available hydralazine 50 mg tablet TAKE 1 TABLET BY MOUTH TWICE DAILY IN THE MORNING AND IN THE EVENING WITH FOOD active Not Available Not Available No t Available hydrochlorot hiazide 25 mg tablet TAKE 1 TABLET BY MOUTH EVERY MORNING active Not Available Not Available No t Available mupirocin 2 % topical ointment APPLY SMALL AMOUNT TO AFFECTED AREA(S) THREE TIMES DAILY FOR 5-7 DAYS active Not Available Not Available No t Available furosemide 20 mg tablet TAKE 1 TABLET BY MOUTH EVERY DAY active Not Available Not Available No t Available zolpidem 10 mg tablet TAKE 1 TABLET BY MOUTH AT BEDTIME active Not Available Not Available No t Available albuterol sulfate HFA 90 mcg/actuatio n aerosol inhaler Inhale 2 puffs 4 times a day by inhalation route. 2024 active Not Available Not Available Not Avai lable ondansetron 4 mg disintegrati ng tablet Take 1 to 2 tablets every 8 hours as needed for nausea or vomiting. Max 6 tablets per 24 hours 2024 active Not Available Not Available Not Avai lable losartan 100 mg tablet TAKE 1 TABLET BY MOUTH EVERY EVENING active Not Available Not Available No t Available fluticasone propionate 50 mcg/actuatio n nasal spray,suspen dieter USE 1 SPRAY IN EACH NOSTRIL EVERY DAY active Not Available Not Available No t Available prazosin 2 mg capsule TAKE 2 TABLETS BY MOUTH EVERY DAY AT BEDTIME active Not Available Not Available No t Available Artificial Tears (polyvinyl alcohol) 1.4 % eye drops PLACE 1 DROP IN IN EACH EYE THREE OR FOUR TIMES DAILY active Not Available Not Available No t Available metocloprami de 10 mg tablet TAKE 1 TABLET BY MOUTH FOUR TIMES DAILY; 1 tablet BEFORE MEALS AND 2 TABLETS AT BEDTIME active Not Available Not Available No t Available verapamil ER 240 mg 24 hr capsule,exte nded release TAKE 1 CAPSULE BY MOUTH EVERY MORNING active Not Available Not Available No t Available nabumetone 500 mg tablet TAKE 1 TABLET BY MOUTH TWICE DAILY active Not Available Not Available No t Available verapamil ER 120 mg 24 hr capsule,exte nded release TAKE 1 CAPSULE BY MOUTH EVERY EVENING active Not Available Not Available No t Available escitalopram 20 mg tablet TAKE 1 AND 1/2 TABLETS BY MOUTH IN THE MORNING active Not Available Not Available Not Available duloxetine 30 mg capsule,cody yed release TAKE 1 CAPSULE BY MOUTH EVERY MORNING active Not Available Not Available No t Available duloxetine 60 mg capsule,cody yed release TAKE 1 CAPSULE BY MOUTH EVERY MORNING active Not Available Not Available No t Available Minerin Creme topical APPLY TO THE AFFECTED AREA(S) TWICE DAILY NEEDED FOR DRY SKIN active Not Available Not Available No t Available cholecalcife rol (vitamin D3) 50 mcg (2,000 unit) tablet TAKE 1 TABLET BY MOUTH EVERY EVENING active Not Available Not Available No t Available Creon 24,000-76,00 0-120,000 unit capsule,cody yed release TAKE 2 CAPSULES BY MOUTH FOUR TIMES DAILY active Not Available Not Available Not Available blood pressure test kit-large cuff USE DAILY active Not Available Not Available No t Available Vitamin D3 50 mcg (2,000 unit) capsule TAKE 1 TABLET BY MOUTH EVERY EVENING active Not Available Not Available No t Available Myrbetriq 50 mg tablet,exten ded release TAKE 1 TABLET BY MOUTH EVERY MORNING active Not Available Not Available No t Available Viberzi 100 mg tablet TAKE 1 TABLET BY MOUTH TWICE DAILY active Not Available Not Available No t Available naloxone 4 mg/actuation nasal spray FOR SUSPECTED OPIOID OVERDOSE. SPRAY 0.1mL IN ONE NOSTRIL. REPEAT IN ALTERNATE NOSTRIL 2-3 MINUTES IF NEEDED. SEEK MEDICAL ATTENTION IMMEDIATELY EVEN IF PATIENT RESPONDS. active Not Available Not Available No t Available Vitals Date Recorded Oxygen saturation Oxygen saturation in Arterial blood by Pulse oximetry Body height Respiratory rate Body temperature Body weight Heart rate Systolic blood pressure Diastolic blood pressure Provider Name and Address Organization Details Last Updated DateTime 5 99 % 99 % 154.94 cm 16 /min 98.2 [degF] 941959. 84 g 83 /min 135 mm[Hg] 88 mm[Hg] Not Available [facility] 5 12:40:58 Date Recorded Oxygen saturation Oxygen saturation in Arterial blood by Pulse oximetry Respiratory rate Heart rate Body temperature Systolic blood pressure Diastolic blood pressure Provider Name and Address Organization Details Last Updated DateTime 2 96 % 96 % 20 /min 77 /min 98.4 [degF] 160 mm[Hg] 94 mm[Hg] Not Available [facility] 2 14:45:50 Social History None recorded. Functional Status None recorded. Mental Status None recorded. Family History Nothing Reported. Medical History No medical history recorded. Gynecological HistoryNo gynecological history recorded. Obstetrics History GPAL:G 0 P 0 0 0 0 Past Encounters Encounter ID Performer Location Encounter Start Date Encounter Closed Date Diagnosis/Indication Diagnosis SNOMED-CT Code Diagnosis ICD10 Code Diagnosis Note [id number] Christofer Nielson MD [facility] [address] [place] [address] 02/02/2022 14:45:48 02/07/2022 15:12:38 Essential hypertension 59696161 I10 Reports a history of hypertensi on, BP 160/90. Asymptomat ic other than mild headache. No signs or symptoms of hypertensi ve emergency. Plan for PCP follow-up for repeat check and titration of medication s as needed. [id number] Kiersten Grissom MD [facility] [address] [place] [address] 05/02/2024 12:40:52 05/02/2024 19:34:49 Upper respiratory infection 61960433 J06.9 Likely bronchitis with negative COVID and flu 5 days into symptoms, given green sputum will cover with ABXAllergi es and pharmacy reviewed. Advised to use her MDI 2 puffs 4 times daily patient could not locate her MDI so new Rx sent to pharmacy/r equested cough medication advised is not covered but would be glad to prescribe benzonatat e and she agreed. Advised the albuterol could help with the cough as well. She is not wheezing so steroids not indicated- Advised clear liquids to stay well-hydra flip. Call us if she needs another visit and to follow-up with her PCP next Sunday. She verbalized understand ing Health Concerns Section Related Observation LastModified by Organization Detai ls LastModified Time None Recorded Concern Status LastModified by Organization Details LastModified Time None Recorded Advance Directives Directive None Recorded Payers Encounter Date Sequence Insurance Name Policy Number Policy Ba Covered Member ID [id number] Member ID Guarantor Name 02/02/2022 1 [facility] - DOS PRIOR TO 2022 - DUAL ELIGIBLE (MEDICARE REPLACEMENT/ADV ANTAGE - HMO) Shereen Cuellar [id number] Shereen Cuellar 05/02/2024 1 [facility] - DOS ON OR AFTER 2022 - DUAL ELIGIBLE - HALF-WAY OPTIONS AND ONE CARE (MEDICARE REPLACEMENT/ADV ANTAGE - HMO) Shereen Cuellar [id number] Shereen Cuellar Notes Date Note Type Note Provider Name and Address Organization Details Recorded Time 02/02/2022 text/html HPI: Allergies: Cefuroxime Patient having elevated BP of 168/112 Hr 89. Pt currently on Varapamil [id number] daily and HCTz 25mg at night and losartan 100mg daily No headche cheest pain or SOB> Pt declines ER, agrees to [facility] evaluation. ................... ................... ................... ................... ................... ................... ................... ........ [facility] Nursing Assessment: Comments: Spoke with member requesting visit for headache and blood pressure eval states at pain management appointment today got upset and left appointment pt did not take daily Losartan dose and tramadol dose deny chest pain or SOB will monitor blood pressure after taking meds this evening aware visit placed for 02/02/22 Discuss if symptoms should progress or if she develops chest pain SOB or severe headache to seek emergent care verbalize understanding ................... ................... ................... ................... ................... ................... ................... ........ Line Prep Cook Note: Pt states she has been dealing with hypertension on and off for a long time now. Pt states she has a mild headache now and is also hypertensive. Pt states she took Tylenol with good relief. Pt states she just needed a visit to have her blood pressure checked. Pt found to be hypertensive. [facility] consulted. Red flags discussed ................... ................... ................... ................... ................... ................... ................... ........ Disposition: Fulfilled Christofer Nielson MD [address] [facility],[address], [place], [address], [facility] - [employer] 02/02/2022 16:18:00 05/02/2024 text/html CRC Nurse Triage Notes (Kelly Floyd - RN): Reason For Request: Cough Chief Complaints: Cough PMH: Hypertension, COPD/Asthma, Fibromyalgia, Anxiety Disorder, Depression PMH Reviewed at 05/02/2024: Allergies Reviewed at 05/02/2024:43 Comments: Caller in to report member is reporting a productive cough and SOB. Did not elaborate on any other symptoms/complaints . hx of Asthma so does get SOB at times. Member has not tried anything OTC for symptoms Educated on response time and stated visit after 12pm Nishi RN Line Prep Cook Organization Information for [facility] Legal Name: [employer] Address: [address] [place] [address], Ore Grader: Ken Dill MD [facility] No.: [id number] Line Prep Cook POC Test Results from [facility] Rapid COVID antigen (12:25:58) COVID: - Rapid influenza antigen (12:25:58) Flu: - ................... ................... ................... ................... ................... ................... ................... ........ Line Prep Cook Note From [facility]: [facility] makes pt contact a 48 YO F CC of cold like s/s for five days. [facility] obtains consent and uploads electronically. [facility] obtains vital signs and a negative covid and flu test. PT explains for five days shes had a runny nose, sinus congestion, productive cough with green phelgm, nausea from excessive coughing. PT does not drink water only brisk ice tea, pt still eating normally but baseline she doesnt eat a lot. PT deneis any fever. or sob, or chest pain. PT does have a hx of asthma and sleep apnea. PT uses her MDI as needed but very rarely. PT vitals are WNL. No fever noted and lungs are clear. PT denies any sore throat or difficulty swallowing. [facility] contacts [facility] and explains above mentioned. [facility] prescribes azithromycin, ondansetron, benzoate, and a new mdi. PT is given two azithromycin tablets totaling 500mg, and 1 4mg ODT zofran which is given by [facility]. PT is to start antibiotics tomorrow and use the mdi 2 puffs four times a day. PT is explained if she develops a fever, severe sob, chest pain, or gets worse to call us back or go into the emergency department to be seen. Otherwise continue the prescribed medications and drink fluids and rest. PT understands [facility] clear. Pt allergy confirmed as cefuroxime ................... ................... ................... ................... ................... ................... ................... ........ [facility] Consulted: Kiersten Grissom ................... ................... ................... ................... ................... ................... ................... ........ Disposition: Fulfilled SEGMD: As above. Patient is complaining of post-tussive emesis- no diarrhea. Patient has Reglan but is requesting more Zofran. She has had no documented fever but has had chills. She reports being ill for 5 days Kiersten Grissom MD [address] [place] [address],[address], [place], [phone], [employer] 05/02/2024 15:52:47 OBGyn Episode No OBEpisode recorded.
--- OUTSIDE RECORDS SUMMARY | 2024-05-08 13:20 | XMS_ITS | Continuity of Care Document ---
Author Organization [facility], [place] - [facility] Address [address] [place] [phone] Care Team Providers Care Development Rep Name Role Phone [facility] Primary Care Provider BRANDY SOARES Primary Care Provider [facility] OTHER Assessment Encounter Date Assessment Date Assessment LastModified by Organization Details LastModified Time 05/02/2024 05/02/2024 I provided real -time medical direction via phone for this encounter, and was available for additional phone based assistance as needed. I have reviewed and agree with the Assessment and Plan as documented by the Supervisor Of Communications. We discussed the diagnostic uncertainty of home [...] call 911- she verbalized understanding of instruction [email or web address] Not available 05/02/2024 15:50:45 Plan of Treatment Reminders Order Date Submit Date Provider Last Modified By Organization Details Last Modified Time Details Appointments None recorded. Lab rapid SARS CoV 2 Ag, QL IA, respiratory specimen 2024 025 [email or web address] 0 [facility], [address] [place] [address], [id number], 5 12:56:28 rapid flu (A+B) 2024 025 [email or web address] 0 [facility], [address] [place] [address], [id number], 5 12:56:28 glucose, fingerstick , blood 2024 025 [email or web address] 0 [facility], [address] [place] [address], [place], [phone], 5 12:57:15 Referral None recorded. Procedures None recorded. Surgeries None recorded. Imaging None recorded. Medication Orders azithromyci n 250 mg tablet 2024 025 [email or web address] [facility], [address] [place] [address], [id number], 5 12:56:28 azithromyci n 250 mg tablet 2024 025 [facility], [address] [place] [address], [id number], 5 17:00:20 ondansetron 4 mg disintegrat ing tablet 2024 025 [email or web address] 0 [facility], [address] [place] [address], [id number], 5 12:56:28 ondansetron 4 mg disintegrat ing tablet 2024 025 [facility], [address] [place] [address], [id number], 5 16:49:42 benzonatate 200 mg capsule 2024 025 [facility], [address] [place] [address], [id number], 5 17:00:20 albuterol sulfate HFA 90 mcg/actuati on aerosol inhaler 2024 025 [facility], [address] [place] [address], [id number], 5 17:00:19 Patient TargetsNo targets recorded. Patient InstructionsNo instructions recorded. Reason for Referral None Reported. Results Created Date Observation Date Name Description Value Unit Range Abnormal Flag Note LastModifiedBy Organization Detail LastModifiedTime 05/02/1905/02/2024 gluco , teresa moreira k, blood Blood Glucose: mg/dl 136 Not Available [address], [phone], 05/02/2024 12:56:44 05/02/1905/02/2024 rapid flu (A+B) Flu negati ve Not Available [facility] ed [address] [place] [address], [phone], 05/02/2024 12:52:10 05/02/1905/02/2024 rapid SARS CoV 2 Ag, QL IA, respi rator y speci men rapid SARS CoV 2 Ag, QL IA, respiratory specimen negati ve Not Available [facility] ed [address] [place] [address], [id number], 05/02/2024 12:52:05 Result Notes None recorded. Medical Equipment None Reported. Allergies Allergen ID Allergen Name Allergen Category Reaction Reaction Severity Criticality Documentation Date Start Date Code Code System Note Provider Name and Address Organization Details Recorded Time 10963 cefuroxim e Not available Not available Not available Not available 05/02/2024 2194 RxNorm Not Available [facility] - production 09:43:20 Medications Name Sig Start [...] % 154.94 cm 16 /min 98.2 [degF] 855990. 84 g 83 /min 135 mm[Hg] 88 mm[Hg] Not Available [facility] - production 5 12:40:58 Social History None recorded. Functional Status None recorded. Mental Status None recorded. Family History Nothing Reported. Medical History No medical history recorded. Gynecological HistoryNo gynecological history recorded. Obstetrics History GPAL:G 0 P 0 0 0 0 Past Encounters Encounter ID Performer Location Encounter Start Date Encounter Closed Date Diagnosis/Indication Diagnosis SNOMED-CT Code Diagnosis ICD10 Code Diagnosis Note [id number] Kiersten Grissom MD [facility] [address] [place] [phone] 05/02/2024 12:40:52 05/02/2024 19:34:49 Upper respiratory infection 87106152 J06.9 Likely bronchitis with negative COVID and [...] by Organization Details LastModified Time None Recorded Payers Encounter Date Sequence Insurance Name Policy Number Policy Ba Covered Member ID [id number] Member ID Guarantor Name 05/02/[address] [facility] - DOS ON OR AFTER 2022 - DUAL ELIGIBLE - ASSISTED OPTIONS AND ONE CARE (MEDICARE REPLACEMENT/ADV ANTAGE - HMO) Shereen Cuellar [id number] Shereen Cuellar Notes Date Note Type Note Provider Name and Address Organization Details Recorded Time 05/02/2024 text/html [facility] Nurse Triage Notes (Kelly Floyd - RN): Reason For Request: Cough Chief Complaints: Cough PMH: Hypertension, COPD/Asthma, Fibromyalgia, Anxiety Disorder, Depression PMH Reviewed at 05/02/2024:43 Allergies Reviewed at 05/02/2024:43 Comments: Caller in to report member is reporting a productive cough and SOB. Did not elaborate on any other symptoms/complaint s. hx of Asthma so does get SOB at times. Member has not tried anything OTC for symptoms Educated on response time and stated visit after 12pm Nishi ALVES Supervisor Of Communications Organization Information for Booker Reyes Legal Name: [employer] Address: [address] [place] [address], Geophysical Prospector: Ken Dill MD [place] No.: [id number] Supervisor Of Communications POC Test Results from Booker Reyes Rapid COVID antigen (12:25:58) COVID: - Rapid influenza antigen (:25:58) Flu: - .................. .................. .................. .................. .................. .................. .................. ............... Supervisor Of Communications Note From Booker Reyes: [facility] makes pt contact a 48 YO F CC of cold like s/s for five days. [facility] obtains consent and uploads electronically. [facility] obtains vital signs and a negative covid [...] denies any sore throat or difficulty swallowing. [facility] [place] [facility] [place] above mentioned. [facility] [place] azithromycin, ondansetron, benzoate, and a new mdi. PT is given two azithromycin tablets totaling 500mg, and 1 4mg ODT zofran which is given by [facility]. PT is to start antibiotics tomorrow and use the mdi 2 puffs four times a day. PT is explained if she develops a fever, severe sob, chest pain, or gets worse to call us back or go into the emergency department to be seen. Otherwise continue the prescribed medications and drink fluids and rest. PT understands [facility] clear. Pt allergy confirmed as cefuroxime .................. .................. .................. .................. .................. .................. .................. ............... [facility] [place] Consulted: Kiersten Grissom .................. .................. .................. .................. .................. .................. .................. ............... Disposition: Fulfilled SEGMD: As above. Patient is complaining of post-tussive emesis- no diarrhea. Patient has Reglan but is requesting more Zofran. She has had no documented fever but has had chills. She reports being ill for 5 days Kiersten Grissom MD [address] [place] [address],[address], [place], [phone], G4S 05/02/2024 15:52:47 OBGyn Episode No OBEpisode recorded.
[2024-06-26 15:27] VITALS: BMI 51.0
--- NOTE | 2024-06-27 09:11 | P.CONAN_ITS ---
Documented by User: Kelly Leon NP 06/27/24 09:13 HPI - Anesthesia Eval Consult details Narrative: 49yo F for Cystoscopy Bladder Botox Injection BMI 51 Anesthesia Pre-Procedure Meds Is the patient on any of the following meds?: GLP1/DPP4 and SGLT2 Inhib PMFSH Active Problems Active Problems: All Active Problems MDD (major depressive disorder), recurrent episode, moderate (Acute) Overactive bladder (Acute) Tubular adenoma of colon (Acute) Nocturnal hypoxemia (Acute) Pancreatitis (Acute) Sacroiliac joint dysfunction of right side (Acute) Dyspnea (Acute) Lumbar radiculopathy (Acute) Proteinuria (Acute) Spondylosis of lumbar region without myelopathy or radiculopathy (Acute) Mixed incontinence urge and stress (Acute) Hemorrhoids (Acute) Patellofemoral arthralgia of both knees (Acute) Urinary retention (Acute) Left lateral epicondylitis (Acute) Nocturia more than twice per night (Acute) Obstructive sleep apnea (Acute) Morbidly obese (Acute) Irritable bowel syndrome with diarrhea (Acute) Gastroparesis (Acute) Urinary retention (Acute) Epicondylitis, lateral (Acute) Interstitial cystitis (Acute) Spinal stenosis of lumbar region (Acute) Chronic pain syndrome (Acute) Spondylosis, lumbar, with myelopathy (Acute) Restrictive lung disease (Acute) Allergic rhinitis (Acute) AISHWARYA on CPAP (Acute) Past Medical History Medical History Morbid obesity with BMI of 50.0-59.9, adult Recent bereavement Depression Morning headache Daytime somnolence Diabetes Asthma Pre-op examination Family history of colon cancer Greater trochanteric bursitis of left hip Greater trochanteric bursitis of right hip Hirsutism Varicose veins with pain Restless leg syndrome Congenital pulmonary arteriovenous malformation Fungal infection of skin of abdomen Diabetes mellitus Urinary frequency Patellofemoral arthralgia of right knee Obstructive sleep apnea Hypothyroidism Hypertension Urinary retention Left forearm pain Epicondylitis, lateral Interstitial cystitis Spinal stenosis of lumbar region Chronic pain syndrome Disc degeneration, lumbar Spondylosis, lumbar, with myelopathy Morbid obesity due to excess calories Arthritis Fibromyalgia Migraines Hypothyroid Restrictive lung disease Allergic rhinitis AISHWARYA on CPAP Nausea and vomiting GERD (gastroesophageal reflux disease) Family History Family History Father Alcoholism Mother Leukemia Maternal Aunt Breast cancer Sister Depression Vertigo Family/Other Heart problem Diabetes Cancer Brother Atherosclerotic cardiovascular disease Cardiomegaly Family history of problems with anesthesia: No Surgical History Surgical History Hx of spinal surgery Hx of cystoscopy Hx of colonoscopy History of esophagogastroduodenoscopy (EGD) History of Problems with Anesthesia: No Social History Social History Household Members: Family Household Members Other:: Niece and great nieces and nephews Housing: Apartment Are you a primary career transition specialist to a significant other at home: No Do you presently have visiting nurse or other home services: No Alcohol intake: never Comment: NONE Patient Tobacco Use Status: Never used Tobacco e-Cigarette/Vaping Use: Never Used Second Hand Smoke Exposure: No Use of substances other than those prescribed or required for medical reasons: Yes Substance Use Type: Marijuana Substance Use Frequency: Occasionally Have you been hit, kicked, punched, or otherwise hurt by someone within the past year? 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 Sexual orientation: Decline to Answer Meds Allergies Allergy/AdvReac Type Severity Reaction Status Date / Time cefuroxime [From CEFTIN] Allergy Severe HIVES Verified 06/30/24 11:44 Home Medications ?Medication ?Instructions ?Recorded ?Confirmed ?Last Taken ?Type tramadol 50 mg tablet 50 mg PO Q6H PRN severe pain 01/31/24 06/26/24 Unknown History verapamil 240 mg 24 hr 240 mg PO QAM 01/31/24 06/26/24 Unknown History capsule,extended release dulaglutide 0.75 mg/0.5 mL 0.75 mg subcut QWEEK 05/09/24 06/26/24 06/20/24 History subcutaneous pen injector (Trulicity) empagliflozin 10 mg tablet 10 mg PO QAM 05/09/24 06/26/24 06/23/24 History (Jardiance) fluticasone furoate 200 1 inh inhalation DAILY 06/26/24 06/26/24 Unknown History mcg/actuation blister powder for inhalation (Arnuity Ellipta) Exam Height,Weight and Vital Signs: Height 5 ft 1 in Weight 122.47 kg Pertinent Lab Results Pertinent Lab Results: Laboratory Tests 01/31/24 02/03/24 18:15 09:28 WBC 8.7 Hgb 15.6 Hct 44.0 Plt Count 243 Sodium 139 Potassium 4.1 Chloride 103 Carbon Dioxide 27 BUN 17 H Creatinine 0.87 Narrative Narrative: ECHO 05/2024 Conclusions: - 1. Normal LV ejection fraction 55-60% with mild asymmetric septal hypertrophy 2. Cardiac valvular Dopplers within normal limits EKG 2023 Vent. Rate : 078 BPM Atrial Rate : 078 BPM P-R Int : 154 ms QRS Dur : 082 ms QT Int : 378 ms P-R-T Axes : 029 023 023 degrees QTc Int : 430 ms Normal sinus rhythm Normal ECG When compared with ECG of 28-JUN-2023 00:40, No significant change was found Assessment and Plan Assessment Anesthesia Assessment: Chart Reviewed Final Anesthetic Review Family History of Problems with Anesthesia: No History of Problems with Anesthesia: No Documented by User: Jorge Carpenter MD 06/30/24 13:58 [facility] Past Medical History Medical History Morbid obesity with BMI of 50.0-59.9, adult Recent bereavement Depression Morning headache Daytime somnolence Diabetes Asthma Pre-op examination Family history of colon cancer Greater trochanteric bursitis of left hip Greater trochanteric bursitis of right hip Hirsutism Varicose veins with pain Restless leg syndrome Congenital pulmonary arteriovenous malformation Fungal infection of skin of abdomen Diabetes mellitus Urinary frequency Patellofemoral arthralgia of right knee Obstructive sleep apnea Hypothyroidism Hypertension Urinary retention Left forearm pain Epicondylitis, lateral Interstitial cystitis Spinal stenosis of lumbar region Chronic pain syndrome Disc degeneration, lumbar Spondylosis, lumbar, with myelopathy Morbid obesity due to excess calories Arthritis Fibromyalgia Migraines Hypothyroid Restrictive lung disease Allergic rhinitis AISHWARYA on CPAP Nausea and vomiting GERD (gastroesophageal reflux disease) Family History Family History Father Alcoholism Mother Leukemia Maternal Aunt Breast cancer Sister Depression Vertigo Family/Other Heart problem Diabetes Cancer Brother Atherosclerotic cardiovascular disease Cardiomegaly Surgical History Surgical History Hx of spinal surgery Hx of cystoscopy Hx of colonoscopy History of esophagogastroduodenoscopy (EGD) Social History Social History Household Members: Family Household Members Other:: Niece and great nieces and nephews Housing: Apartment Are you a primary career transition specialist to a significant other at home: No Do you presently have visiting nurse or other home services: No Alcohol intake: never Comment: NONE Patient Tobacco Use Status: Never used Tobacco e-Cigarette/Vaping Use: Never Used Second Hand Smoke Exposure: No Use of substances other than those prescribed or required for medical reasons: Yes Substance Use Type: Marijuana Substance Use Frequency: Occasionally Have you been hit, kicked, punched, or otherwise hurt by someone within the past year? 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 Sexual orientation: Decline to Answer Meds Allergies Allergy/AdvReac Type Severity Reaction Status Date / Time cefuroxime [From CEFTIN] Allergy Severe HIVES Verified 06/30/24 11:44 Home Medications ?Medication ?Instructions ?Recorded ?Confirmed ?Last Taken ?Type tramadol 50 mg tablet 50 mg PO Q6H PRN severe pain 01/31/24 06/26/24 Unknown History verapamil 240 mg 24 hr 240 mg PO QAM 01/31/24 06/26/24 Unknown History capsule,extended release dulaglutide 0.75 mg/0.5 mL 0.75 mg subcut QWEEK 05/09/24 06/26/24 06/20/24 History subcutaneous pen injector (Trulicity) empagliflozin 10 mg tablet 10 mg PO QAM 05/09/24 06/26/24 06/23/24 History (Jardiance) fluticasone furoate 200 1 inh inhalation DAILY 06/26/24 06/26/24 Unknown History mcg/actuation blister powder for inhalation (Arnuity Ellipta) Exam Airway Mallampati Class: II TM Dist: <=3cm Neck ROM: Full Loose/Missing/Broken Teeth: No Heart: ok Lungs: ok Assessment and Plan Assessment Anesthesia Assessment: Anesthesia Plan Discussed Final Anesthetic Review NPO: Yes ASA Class: III Final Preanesthetic Review: No Changes in Pt Med Stat, Meds/Allgs Chart Reviewed, Consent Obtained/Reviewed and Anes Risks/Benef Reviewed Patient Risk: High Procedure Risk: Low Anesthetic Plan Anesthetic Plan: GA and Agree w/ Assess. and Plan Disposition: Standard PACU
[2024-06-30 11:51] LABS: UPreg QC Valid YES; Urine Pregnancy NEGATIVE (NEGATIVE)
[2024-06-30] MEDS: levoFLOXacin 500 MG TABLET PO (12:01)
[2024-06-30 12:17] VITALS: BP 134/80; PULSE 74; RESP 15; TEMP 36; O2SAT 96
[2024-06-30] MEDS: Lactated Ringers 1,000 ML 100 ML IVCONT (12:17)
[2024-06-30 12:19] LABS: Glucose, Whole Blood 143 mg/dL (60-115)
--- NOTE | 2024-06-30 13:52 | P.HPSUR_ITS ---
Pre-Procedural Eval Section A - 24 Hr Update-Section A only Date of Service: 06/30/24 The patient is an INPATIENT: No Changes since office visit: No Cold of Flu in the past 2 weeks, No New Medical Problems, No Changes in Medication and No Patient answered all questions The patient has been examined within 24 hours of the surgical procedure. The History & Physical has been completed within 30 days and I have reviewed it.: Yes Section B - Complete if H&P > 30 days Chief Complaint: Overactive bladder Details of Present Illness: Here for intra detrusor Botox injection Allergies: Allergies Allergy/AdvReac Type Severity Reaction Status Date / Time cefuroxime [From CEFTIN] Allergy Severe HIVES Verified 06/30/24 11:44 Review of Systems Sugical H&P ROS: Negative: Constitution, Cardiovascular, Respiratory, Neurological, Psychiatric, Hem-Onc, Allergic/Immunologic, Gastrointestinal, G enitourinary, Musculoskeletal, Integumentary, Endocrine and Eyes/Ears/Nose/Throat Exam Surgical H&P Exam: Normal: HEENT, Normal: Heart, Normal: Lungs, Normal: Extremities, Normal: Abdomen, Normal: Skin and Normal: Neurological Plan Diagnosis/Plan: Unchanged I have reviewed the history and physical and performed a pertinent physical examination on my patient. No changes have occurred unless specified. Time Spent With Patient Time: Total time managing care of this patient today ____ minutes.
--- NOTE | 2024-06-30 14:31 | W.PM.OPN ---
Operative Note Operative Note Date of Service: 06/30/24 Narrative: PreOperative Diagnosis: Overactive bladder with failure of medications Post Operative Diagnosis: Overactive bladder with failure of medications Procedure: Cystoscopy with injection 100 units Botox intra detrusor muscle Surgeon: Dr Wilfred Simental Anesthesia: Sedation Indications for procedure: Is a very pleasant 49-year-old female. Has persistent urgency and frequency. Has failed oral medications. At office cystoscopy has effective emptying with minimal urethral rotation on cough. For cystoscopy and Botox injection. Is aware of the risks and benefits particularly related to urinary retention and possible infection. Procedure: After informed consent was verified the patient was brought to the operating room and placed in a supine position. Anesthesia was administered per protocol. Cystoscopy performed with 22 Hungarian cystoscope. Bladder was emptied of urine. Bladder was refilled. Using 100 units of Botox mixed in 10 cc of normal saline injections were placed at the back wall of the bladder. 0.5cc placed at each injection site. Injections were placed in a grid 5 across and for high. Injections were placed from the inferior to superior position. Trabeculations on the bladder wall with targeted for each injection site. Procedure was tolerated well. Patient was extubated and transferred in stable condition to the recovery area. Pathology: None Drains: None
[2024-06-30 14:42] VITALS: BP 138/75; PULSE 100; RESP 16; TEMP 36.5; O2SAT 94
[2024-06-30 14:47] VITALS: BP 146/78; PULSE 91; RESP 16; O2SAT 97
[2024-06-30 14:52] VITALS: BP 130/85; PULSE 78; RESP 16; O2SAT 97
[2024-06-30 15:06] VITALS: BP 120/79; PULSE 69; RESP 16; TEMP 36.3; O2SAT 100
== END 2024-06-30 15:48 | disposition home or self-care (01) ==
PROVIDERS: Nurse Practitioner; PCP Family Medicine; Visit Provider Urology
PROC: 3E0K8GC Introduction of Other Therapeutic Substance into Genitourinary Tract, Via Natural or Artificial Opening Endoscopic (ICD-10-PCS; CPT 52287; principal; 2024-06-30 13:20)
DX: N32.81 Overactive bladder (principal); N30.10 Interstitial cystitis (chronic) without hematuria; R39.15 Urgency of urination; R35.0 Frequency of micturition; E11.9 Type 2 diabetes mellitus without complications; G89.4 Chronic pain syndrome; M79.7 Fibromyalgia; M48.061 Spinal stenosis, lumbar region without neurogenic claudication; E66.01 Morbid (severe) obesity due to excess calories; Z68.43 Body mass index [BMI] 50.0-59.9, adult; G47.33 Obstructive sleep apnea (adult) (pediatric); Z99.89 Dependence on other enabling machines and devices; Z79.85 Long-term (current) use of injectable non-insulin antidiabetic drugs; Z79.899 Other long term (current) drug therapy; Z88.8 Allergy status to other drugs, medicaments and biological substances; Z98.890 Other specified postprocedural states
CPT/HCPCS: 52287; 81025; 82947; J0585; J2003; J2704; J3010

== ENCOUNTER → 2024-06-30 11:22 | Outpatient (BNV) | payer OTHER, SELFPAY | PROVIDERS: PCP Family Medicine; Visit Provider Urology | DX: N32.81 Overactive bladder (principal) | CPT/HCPCS: 52287 ==

== ENCOUNTER 2024-07-03 13:08 | Outpatient (AMB) | payer OTHER, SELFPAY ==
--- NOTE | 2024-07-03 13:10 | A.OFFVIS_ITS ---
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 (pt r/s from 05/03) Mail Carriers Supervisor Required: No Accompanied by: Self / Same As Patient Allergies cefuroxime [From CEFTIN] Allergy (Severe, Verified 06/30/24 11:44) HIVES Medication List - Last Reconciled 07/03/24 by Jovany Hughes MD albuterol sulfate 90 mcg/actuation (Ventolin HFA) 2 puffs inhalation Q4-6H PRN 30 days clonazepam 0.5 mg PO TID PRN 30 days dulaglutide (Trulicity) 0.75 mg subcut QWEEK empagliflozin (Jardiance) 10 mg PO QAM famotidine 40 mg PO BEDTIME 30 days fluticasone furoate 200 mcg/actuation (Arnuity Ellipta) 1 inh inhalation DAILY gabapentin 400 mg PO TID 30 days loperamide 8 mg (4 x 2 mg) PO DAILY PRN loratadine 10 mg PO DAILY 30 days metoclopramide HCl 10 mg PO TIDAC 90 days ondansetron HCl 4 mg PO TID PRN paroxetine HCl 30 mg PO DAILY 30 days pentosan polysulfate sodium (Elmiron) 200 mg (2 x 100 mg) PO BID 90 days solifenacin 10 mg PO DAILY 90 days sulfamethoxazole-trimethoprim 400-80 mg (Bactrim) 1 tab PO DAILY 3 days tramadol 50 mg PO Q6H PRN verapamil ER 240 mg PO QAM zolpidem 10 mg PO BEDTIME 30 days HPI Comments Details: Shereen is here for consultation regarding chest pains. Morbidly obese. Many comorbidities and also on polypharmacy. Seems to be a diabetic. No known cardiac issues including coronary disease or myocardial infarction or cardiomyopathy. Listed to have a history of pulmonary AVMs. Apparently has seen Interventional Radiology at [facility] many years ago, but no interventions performed. She states she gets substernal chest pain somewhat randomly. Can happen with and without exertion. Mostly during rest than during exertion. She also has chronic shortness of breath. [facility] Medical History (Updated 07/03/24 @ 13:52 by Jovany Hughes MD) Pulmonary arteriovenous malformation Morbid obesity with BMI of 50.0-59.9, adult Recent bereavement Depression Morning headache Daytime somnolence Diabetes Asthma Pre-op examination Family history of colon cancer Greater trochanteric bursitis of left hip Greater trochanteric bursitis of right hip Hirsutism Varicose veins with pain Restless leg syndrome Congenital pulmonary arteriovenous malformation Fungal infection of skin of abdomen Diabetes mellitus Urinary frequency Patellofemoral arthralgia of right knee Obstructive sleep apnea Hypothyroidism Hypertension Urinary retention Left forearm pain Epicondylitis, lateral Interstitial cystitis Spinal stenosis of lumbar region Chronic pain syndrome Disc degeneration, lumbar Spondylosis, lumbar, with myelopathy Morbid obesity due to excess calories Arthritis Fibromyalgia Migraines Hypothyroid Restrictive lung disease Allergic rhinitis AISHWARYA on CPAP Nausea and vomiting GERD (gastroesophageal reflux disease) Surgical History Hx of spinal surgery Hx of cystoscopy Hx of colonoscopy History of esophagogastroduodenoscopy (EGD) Family History Father Alcoholism Mother Leukemia Maternal Aunt Breast cancer Sister Depression Vertigo Family/Other Heart problem Diabetes Cancer Brother Atherosclerotic cardiovascular disease Cardiomegaly Social History Household Members: Family Household Members Other:: Niece and great nieces and nephews Housing: Apartment Are you a primary date night caregiver to a significant other at home: No Do you presently have visiting nurse or other home services: No 75 years or older and lives alone: No Alcohol intake: never Comment: NONE Patient Tobacco Use Status: Never used Tobacco e-Cigarette/Vaping Use: Never Used Second Hand Smoke Exposure: No Substance Use Type: Marijuana service: No Current occupational status: disabled 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 Sexual orientation: Decline to Answer Review of Systems Const Denies chills, Denies fatigue, Denies fever(s), Denies frequent falls, Denies weakness, Denies weight gain and Denies weight loss ENT Denies dizziness Card Denies chest pain, Denies leg edema, Denies lightheadedness, Denies palpitations, Reports dyspnea, Reports dyspnea on exertion and Reports orthopnea Resp Denies cough, Reports dyspnea and Reports dyspnea on exertion GI Denies bloating and Denies change in bowel habits Musc Denies muscle weakness, Denies numbness and Denies tingling Neuro Denies dizziness, Denies frequent falls, Denies numbness, Denies tingling and Denies weakness Endo Denies fatigue and Denies palpitations Physical Exam Vital Signs: Last Vital Signs Pulse 90 07/03/24 13:14 BP 130/72 07/03/24 13:14 BMI result Body Mass Index 52.9 Office Procedures EKG Details: EKG with underlying sinus rhythm at 90/Min; cannot exclude old inferior infarct but more likely from body habitus; [place] [address]-[id number], Complete Assessment & Plan Assessment & Plan (1) Precordial chest pain: Code(s): R07.2 - Precordial pain Category: Medical Plan: In the echocardiogram, LVEF is 55-60%. No significant valvular findings. Obtain coronary CTA for further evaluation. (2) Pulmonary arteriovenous malformation: Code(s): Q25.72 - Congenital pulmonary arteriovenous malformation Category: Medical Plan: Documented in prior CT and seen Interventional Radiology at [facility] (2018), but no interventions. Per their note, recommendation was to perform embolization. May need to refer her back to [facility] IR (vs [place] if available). Await completion of cardiac workup as above. Orders: Orders CT Cardiac Coronary Angio Today I25.10 - Atherosclerotic heart disease of [place] coronary artery without angina pectoris, R07.2 - Precordial pain Basic Metabolic Panel Today R07.2 - Precordial pain Coding Level of Care Code New Pt Level 4 (14832) Diagnoses Precordial chest pain R07.2 Pulmonary arteriovenous malformation Q25.72 CPT Codes EKG - CPT: 61463-[id number], Complete ([id number])
[2024-07-03 13:14] VITALS: BP 130/72; PULSE 90; BMI 52.9
== END 2024-07-03 14:06 | disposition home or self-care (01) ==
LOC: HO.HCS 13:08
PROVIDERS: PCP Family Medicine; Visit Provider Internal Medicine
DX: R07.2 Precordial pain (principal); Q25.72 Congenital pulmonary arteriovenous malformation
CPT/HCPCS: 93010; 99214

== ENCOUNTER → 2024-07-03 13:08 | Outpatient (BNVA) | payer OTHER, SELFPAY | PROVIDERS: PCP Family Medicine; Visit Provider Internal Medicine | DX: R07.2 Precordial pain (principal); Q25.72 Congenital pulmonary arteriovenous malformation; R94.31 Abnormal electrocardiogram [ECG] [EKG] | CPT/HCPCS: 93005; 99212 ==

== ENCOUNTER 2024-07-15 12:55 | Outpatient (REF) | payer OTHER, SELFPAY ==
[2024-07-15 14:29] LABS: Hematocrit 39.2 % (37.0-47.0); Mean Corpuscular HGB Conc 35.7 g/dl (31.0-35.0); Mean Corpuscular Hemoglobin 30.6 pg (27.0-33.0); Mean Corpuscular Volume 85.8 fL (80.0-98.0); Mean Platelet Volume 9.9 fL (9.4-12.3); Platelet Count 228 X10*3/uL (160-400); Red Blood Count 4.57 X10*6/uL (4.20-5.50); Red Cell Distribution Width 12.8 % (11.0-16.0); White Blood Count 7.6 X10*3/uL (4.8-10.8)
[2024-07-15 14:37] LABS: Estimated Average Glucose 123 mg/dL; Hemoglobin A1C 152.7228 umol/L; Hemoglobin A1c % 5.9 % (<6.0); Total Hemoglobin (HGBA1C) 3722.2758 umol/L
[2024-07-15 15:39] LABS: Alanine Aminotransferase 29 U/L (0-31); Anion Gap 12 (12-20); Aspartate Amino Transferase 23 U/L (5-31); Bilirubin Direct 0.2 mg/dL (0.0-0.5); Bilirubin Total 0.4 mg/dL (0.0-1.0); Blood Urea Nitrogen 13 mg/dL (9-16); Calcium 8.9 mg/dL (8.4-10.2); Carbon Dioxide 26 mmol/L (22-29); Chloride 105 mmol/L (96-108); Cholesterol 166 mg/dL (<200); Estimated Glomerular Filt Rate > 60; Glucose Random 134 mg/dL (60-115); HDL Cholesterol 57 mg/dL (>40); Iron 68 mcg/dL (30-160); LDL Cholesterol Calculated 93 mg/dL (<100); Percent Iron Saturation 26 % (15-50); Sodium 139 mmol/L (135-145); Total Iron Binding Capacity 262 mcg/dL (228-428); Total Protein 7.5 g/dL (6.5-8.0); Triglycerides 81 mg/dL (<150); Unsaturated Iron Binding 194 ug/dL
[2024-07-15 15:48] LABS: Ferritin 141 ng/mL (10-250); Free T4 (Free Thyroxine) 0.93 ng/dL (0.71-1.85); Thyroid Stimulating Hormone 7.67 uIU/mL (0.32-4.0); Vitamin D 25-OH Total 11.1 ng/mL (>30)
[2024-07-15 15:55] LABS: Vitamin B12 242 pg/mL (200-900)
[2024-07-15 16:08] LABS: Alkaline Phosphatase 94 U/L (39-117)
[2024-07-15 16:26] LABS: CT PCR NOT DETECTED (Not Detect.); NG PCR NOT DETECTED (Not Detect.)
--- OUTSIDE RECORDS SUMMARY | 2024-07-15 16:34 | XMS_ITS | Encounter Summary ---
Author Organization [employer] Address [address] [place] [address] 7t [place] [address] Care Team Providers Care Money Manager Name Role Phone Brinda Daija ROBLES Primary Care Provider [phone] Ely Darling PharmD Unavailable [phone] Reason for Visit * Reason Comments Med Refill Encounter Details Date Type Department Care Team ([facility] st Contact Info) Description 01/24/2023 Refill [facility] [address] [place] [address] Daphney Roca MD [address] [place] [address] Social History Tobacco Use Types Packs/Day Years [...] Care Team (Late st Contact Info) Description 07/29/2024 9:45 AM EDT Office Visit [facility] [address] [place] [address] 08/11/2024 10:15 AM EDT Office Visit [facility] [address] [place] [address] Daija Parry, [address] [place] [address] 09/09/2024 3:30 PM EDT Office Visit [facility] [address] [place] [address] Yordan, Arielle, OD 230 [place] [address] documented as of this encounter Goals Goal Patient Goal Type Associated Problems Recent Progress Patient-Stated? Author Blood Pressure < 140/90 Blood Pressure 159/91(2023 12:14 PM EST) No Lopez Marroquin, PharmD Hemoglobin A1c < 7 Result Component 5.9( 2:18 PM EDT) No Lopez Marroquin, PharmD Record your blood sugar as directed Result Component No Ely Darling PharmD documented as of this encounter Visit Diagnoses Not on filedocumented in this encounter Additional Health Concerns Assessment Noted Time PHQ-9 Depression Total Score: 24 023 8:59 AM EDT documented as of this encounter Care Teams Money Manager Relationship Specialty Start Date End Date Daija Parry DO [address] [place], [place] [phone] PCP - General Family Medicine 12/22/14 Ely Darling PharmD [address] [place] [address] Pharmacist Internal Medicine 11/22/22 documented as of this encounter
--- OUTSIDE RECORDS SUMMARY | 2024-07-15 16:34 | XMS_ITS | Encounter Summary ---
Author Organization [employer] Address [address] [place] [address] 7t [place] [address] Care Team Providers Care Shank Boner Name Role Phone Daija Parry DO Primary Care Provider [phone] Ely Darling PharmD Unavailable Reason for Visit * Reason Onset Date Comments Appointment Request 04/03/2023 Encounter Details Date Type Department Care Team ([facility] st Contact Info) Description 04/03/2023 Telephone [facility] [address] [place], [place] [phone] Daija Parry DO [address] [place], [place] [phone] Appointment Request Social History Tobacco Use Types [...] seen for headaches due to CPAP machine engineering writer did offer to triage this call patient refused due to being out of town and is returning on 04/21/2023 documented in this encounter Plan of Treatment Upcoming Encounters Date Type Department Care Team (Late st Contact Info) Description 07/29/2024 9:45 AM EDT Office Visit [facility] [address] [place] [address] 08/11/2024 10:15 AM EDT Office Visit [facility] [address] [place] [address] Daija Parry DO 230 [place] [address] 09/09/2024 3:30 PM EDT Office Visit [facility] [address] [place] [address] Arielle Farr, OD 230 [place] [address] documented as of this encounter Goals Goal Patient Goal Type Associated Problems Recent Progress Patient-Stated? Author Blood Pressure < 140/90 Blood Pressure 159/91(2023 12:14 PM EST) No Lopez Marroquin, PharmMahin Hemoglobin A1c < 7 Result Component 5.9( 2:18 PM EDT) No Lopez Marroquin PharmMahin Record your blood sugar as directed Result Component No Ely Darling PharmD documented as of this encounter Visit Diagnoses Not on filedocumented in this encounter Additional Health Concerns Assessment Noted Time PHQ-9 Depression Total Score: 24 023 8:59 AM EDT documented as of this encounter Care Teams Shank Boner Relationship Specialty Start Date End Date Daija Parry DO [address] [place] [address] PCP - General Family Medicine 12/22/14 Ely Darling PharmD [address] [place] [address] Pharmacist Internal Medicine 11/22/22 documented as of this encounter
--- OUTSIDE RECORDS SUMMARY | 2024-07-15 16:35 | XMS_ITS | Encounter Summary ---
Author Organization [employer] Address [address] [place] [address] 7t [place] [address] Care Team Providers Care Tank Crewmember Name Role Phone Daija Parry DO Primary Care Provider DelLopez moreno PharmD Unavailable Unavail able Ely Darling PharmD Unavailable Reason for Visit * Reason Onset Date Comments Durable Medical Equipment 05/10/2022 Encounter Details Date Type Department Care Team (Late st Contact Info) Description 05/10/2022 Telephone [facility] [address] [place], [place] [phone] Daija Parry DO 230 [place], [place] [phone] Durable Medical Equipment Social History Tobacco Use [...] cases of non fragrance wipes Please contact valentin at [phone] documented in this encounter Plan of Treatment Upcoming Encounters Date Type Department Care Team (Late st Contact Info) Description 07/29/2024 9:45 AM EDT Office Visit [facility] [address] [place] [address] 08/11/2024 10:15 AM EDT Office Visit [facility] [address] [place] [address] Daija Parry DO [address] [place] [address] 09/09/2024 3:30 PM EDT Office Visit [facility] [address] [place] [address] Yordan, Arielle, OD [address] [place] [address] documented as of this encounter Visit Diagnoses Not on filedocumented in this encounter Additional Health Concerns Assessment Noted Time PHQ-9 Depression Total Score: 24 022 10:57 AM EST documented as of this encounter Care Teams Tank Crewmember Relationship Specialty Start Date End Date Daija Parry DO [address] [place] [address] PCP - General Family Medicine 12/22/14 Lopez Marroquin, AugustoD [address] [place] [address] Pharmacist Internal Medicine 06/25/22 11/22/22 Ely Darling, Ashish [address] [place] [address] Pharmacist Internal Medicine 11/22/22 documented as of this encounter
--- OUTSIDE RECORDS SUMMARY | 2024-07-15 16:35 | XMS_ITS | Encounter Summary ---
Author Organization [employer] Address [address] [place] [address] 7t [place] [address] Care Team Providers Care Radiation Control Worker Name Role Phone Daija Parry DO Primary Care Provider DelLopez moreno PharmD Unavailable Unavail able Ely Darlign PharmD Unavailable Reason for Visit * Reason Onset Date Comments Med Refill 06/12/2022 Encounter Details Date Type Department Care Team ([facility] st Contact Info) Description 06/12/2022 Telephone [facility] [address] [place], [place] [phone] Daija Parry DO [address] [place], [place] [phone] Med Refill Social History Tobacco Use Types [...] (KlonoPIN) 0.5 MG tablet Please sent to [facility] - [place], [place] - [address] [place] [address] documented in this encounter Plan of Treatment Upcoming Encounters Date Type Department Care Team (Late st Contact Info) Description 07/29/2024 9:45 AM EDT Office Visit [facility] [address] [place] [address] 08/11/2024 10:15 AM EDT Office Visit [facility] [address] [place] [address] Daija Parry DO [address] [place] [address] 09/09/2024 3:30 PM EDT Office Visit [facility] OPT[facility] [address] [place] [address] Yordan, Arielle, OD [address] [place] [address] documented as of this encounter Visit Diagnoses Not on filedocumented in this encounter Additional Health Concerns Assessment Noted Time PHQ-9 Depression Total Score: 24 023 11:12 AM EST documented as of this encounter Care Teams Radiation Control Worker Relationship Specialty Start Date End Date Daija Parry DO [address] [place] [address] PCP - General Family Medicine 12/22/14 Lopez Marroquin, AugustoD [address] [place] [address] Pharmacist Internal Medicine 06/25/22 11/22/22 Ely Darling, Ashish [address] [place] [address] Pharmacist Internal Medicine 11/22/22 documented as of this encounter
--- OUTSIDE RECORDS SUMMARY | 2024-07-15 16:35 | XMS_ITS | Encounter Summary ---
Author Organization [facility] [facility] Address [address] [place] [address] 7t [place] [address] Care Team Providers Care Manager Architecture Name Role Phone Daija Parry DO Primary Care Provider DelLopez moreno PharmD Unavailable Unavail able Ely Darling PharmD Unavailable [phone] Encounter Details Date Type Department Care Team ([facility] Contact Info) Description 05/15/2022 Telephone [facility] [address] [place] [address] Daija Parry DO [address] [place] [phone] Social History Tobacco Use Types Packs/Day Years [...] Upcoming Encounters Date Type Department Care Team ([facility] Contact Info) Description 07/29/2024 9:45 AM EDT Office Visit [facility] [address] [place] [address] [place] [address] 08/11/2024 10:15 AM EDT Office Visit [facility] [address] [facility] [address] Daija Parry DO [address] [facility] [place] [address] 09/09/2024 3:30 PM EDT Office Visit [facility] [address] [facility] [place] [address] Yoradn, Arielle, OD [address] [facility] [place] [address] documented as of this encounter Visit Diagnoses Not on filedocumented in this encounter Additional Health Concerns Assessment Noted Time PHQ-9 Depression Total Score: 24 022 10:57 AM EST documented as of this encounter Care Teams Manager Architecture Relationship Specialty Start Date End Date Daija Parry DO [address] [facility] [address] PCP - General Family Medicine 12/22/14 Lopez Marroquin, PharmD [address] [place] [address] Pharmacist Internal Medicine 06/25/22 11/22/22 Ely Darling, [place] [address] Pharmacist Internal Medicine 11/22/22 documented as of this encounter
--- OUTSIDE RECORDS SUMMARY | 2024-07-15 16:35 | XMS_ITS | Encounter Summary ---
Author Organization [employer] Address [address] [place] [address] 7 [place] [address] Care Team Providers Care Die Sinker Name Role Phone Daija Parry DO Primary Care Provider [phone] Ely Darling PharmD Unavailable Reason for Visit * Reason Comments Med Refill Encounter Details Date Type Department Care Team ([facility] st Contact Info) Description 02/11/2024 Refill [facility] [address] [place] [address] Daija Parry DO [address] [place], [place] [phone] Hypothyroidism, unspecified type Social History Tobacco Use [...] with others, in a hotel, in a penitentiary, living outside on the street, on a [...] the past 12 months, has t he [employer], gas, oil or water company threatened to [...] Description 07/29/2024 9:45 AM EDT Office Visit [facility] [address] [place] [address] 08/11/2024 10:15 AM EDT Office Visit [facility] [address] [place] [address] Daija Parry DO [address] [place] [address] 09/09/2024 3:30 PM EDT Office Visit [facility] [address] [place] [address] Yordan, Arielle, OD [address] [place] [address] documented as of this encounter Goals Goal [...] documented as of this encounter Care Teams Die Sinker Relationship Specialty Start Date End Date Daija Parry DO [address] [place] [address] PCP - General Family Medicine 12/22/14 Ely Darling PharmD [address] [place] [address] Pharmacist Internal Medicine 11/22/22 documented as of this encounter
--- OUTSIDE RECORDS SUMMARY | 2024-07-15 16:35 | XMS_ITS | Encounter Summary ---
Author Organization [employer] Address [address] [place] [address] 7t [place] [address] Care Team Providers Care Corporate Treasury Analyst Name Role Phone Daija Parry DO Primary Care Provider [phone] Ely Darling PharmD Unavailable Reason for Visit * Reason Onset Date Comments Med Refill 08/29/2023 Encounter Details Date Type Department Care Team (Late st Contact Info) Description 08/29/2023 Refill [facility] [address] [place] [address] Daija Parry DO [address] [place] [address] Chronic bilateral low back pain, unspecified whether [...] the past 12 months, has t he [employer], gas, oil or water [employer] threatened to shut off services in your [...] Description 07/29/2024 9:45 AM EDT Office Visit [facility] [address] [place] [address] 08/11/2024 10:15 AM EDT Office Visit [facility] [address] [place] [address] Daija Parry DO 230 [place] [address] 09/09/2024 3:30 PM EDT Office Visit [facility] [address] [place], [place] [phone] Arielle Farr, OD [address] [place] [address] documented as of this encounter Goals Goal Patient Goal Type Associated Problems Recent Progress Patient-Stated? Author Blood Pressure < 140/90 Blood Pressure 159/91(2023 12:14 PM EST) No Lopez Marroquin, PharmD Hemoglobin A1c < 7 Result Component 5.9( 5 2:18 PM EDT) No Lopez Marroquin PharmD Record your blood sugar as directed Result Component No Ely Darling PharmD documented as of this encounter Visit Diagnoses Diagnosis Chronic bilateral low back pain, unspecified whether sciatica present documented in this encounter Additional Health Concerns Assessment Noted Time PHQ-9 Depression Total Score: 25 024 12:17 PM EDT documented as of this encounter Care Teams Corporate Treasury Analyst Relationship Specialty Start Date End Date Daija Parry DO [address] [place] [address] PCP - General Family Medicine 12/22/14 Ely Darling PharmD [address] [place] [address] Pharmacist Internal Medicine 11/22/22 documented as of this encounter
--- OUTSIDE RECORDS SUMMARY | 2024-07-15 16:35 | XMS_ITS | Encounter Summary ---
Author Organization [employer] Address [address] [place] [address] 7 [place] [address] Care Team Providers Care Wire Frame Lampshade Maker Name Role Phone Daija Parry DO Primary Care Provider [phone] Ely Darling PharmD Unavailable [phone] Reason for Visit * Reason Onset Date Comments Med Refill 02/07/2024 Encounter Details Date Type Department Care Team ([facility] st Contact Info) Description 02/07/2024 Telephone [facility] [address] [place], [place] [phone] Daija Parry DO [address] [place], [place] [phone] Med Refill Social History Tobacco Use Types [...] with others, in a hotel, in a prison, living outside on the street, on a [...] the past 12 months, has t he [employer], gas, oil or water company threatened to [...] 50 MG tablet To be sent to: [facility] - [place], [place] - [address] [facility] documented in this encounter Plan of Treatment Upcoming Encounters Date Type Department Care Team (Late st Contact Info) Description 07/29/2024 9:45 AM EDT Office Visit [address] [address] 08/11/2024 10:15 AM EDT Office Visit [facility] [address] [place] [address] Daija Parry DO [address] [place] [address] 09/09/2024 3:30 PM EDT Office Visit [facility] [address] [place] [address] Yordan, Arielle, OD [address] [place] [address] documented as of this encounter Goals Goal [...] documented as of this encounter Care Teams Wire Frame Lampshade Maker Relationship Specialty Start Date End Date Daija Parry DO [address] [place] [address] PCP - General Family Medicine 12/22/14 Ely Darling, PharmD [address] [place] [phone] Pharmacist Internal Medicine 11/22/22 documented as of this encounter
--- OUTSIDE RECORDS SUMMARY | 2024-07-15 16:35 | XMS_ITS | Encounter Summary ---
Author Organization [employer] Address [address] [place] [address] 7[address] [place] [address] Care Team Providers Care Denitrator Operator Name Role Phone Brinda Daija ROBLES Primary Care Provider + [phone] Ely Darling PharmD Unavailable [phone] Encounter Details Date Type Department Care Team (Latest Contact Info) Description 07/10/2024 Travel Social History Tobacco Use Types Packs/Day Years Used Date Smoking Tobacco: Never Passive Smoke Exposure: Never Smokeless Tobacco: Never Alcohol Use Standard Drinks/Week Comments Never 0 (1 standard drink = 0.6 oz pur e alcohol) Depression Answer Date Recorded Patient Health Questionnaire-9 Score 22 07/10/2024 Patient Health Questionnaire-9 Score 22 07/10/2024 Last PHQ-9: Questionnaire Data Not on file 0 07/10/2024 Housing Stability Answer Date Recorded What is your housing situation today? I do not have housing (Staying with others, in a hotel, in a residential, living outside on the street, on a [...] Answer Date Recorded Patient Health Questionnaire-2 Score 5 07/10/2024 Comments Unknown Sex and Gender Information Value [...] 9:45 AM EDT Office Visit [facility] [address] [place] [address] 08/11/2024 10:15 AM EDT Office Visit [facility] [address] [place] [address] Daija Parry, [address] [place] [address] 09/09/2024 3:30 PM EDT Office Visit [facility] [address] [place], [place] [phone] Yordan, Arielle, OD [address] [place] [address] documented as of this encounter Goals Goal Patient Goal Type Associated Problems Recent Progress Patient-Stated? Author Blood Pressure < 140/90 Blood Pressure 159/91(2023 12:14 PM EST) No Lopez Marroquin, PharmD Hemoglobin A1c < 7 Result Component 5.9( 2:18 PM EDT) No Dellogromel Lopez, PharmD Record your blood sugar as directed Result Component No Ely Darling PharmD documented as of this encounter Visit Diagnoses Not on filedocumented in this encounter Additional Health Concerns Assessment Noted Time PHQ-9 Depression Total Score: 22 025 3:28 PM EDT documented as of this encounter Care Teams Denitrator Operator Relationship Specialty Start Date End Date Daija Parry DO [address] [place] [address] PCP - General Family Medicine 12/22/14 Ely Darling PharmD [address] [place] [address] Pharmacist Internal Medicine 11/22/22 documented as of this encounter
--- OUTSIDE RECORDS SUMMARY | 2024-07-15 16:35 | XMS_ITS | Encounter Summary ---
Author Organization [employer] Address [address] [place] [address] 7 [place] [address] Care Team Providers Care Final Cleaner Name Role Phone Daija Parry DO Primary Care Provider [phone] Ely Darling PharmD Unavailable Reason for Visit * Reason Onset Date Comments Appointment Request 10/19/2023 Encounter Details Date Type Department Care Team ([facility] st Contact Info) Description 10/19/2023 Telephone [facility] [address] [place], [place] [phone] Daija Parry DO [address] [place], [place] [phone] Appointment Request Social History Tobacco Use Types [...] Description 07/29/2024 9:45 AM EDT Office Visit [facility] [address] [place] [address] 08/11/2024 10:15 AM EDT Office Visit [facility] [address] [place] [address] Daija Parry DO [address] [place] [address] 09/09/2024 3:30 PM EDT Office Visit [facility] [address] [place] [address] Arielle Farr, OD [address] [place] [address] documented as of this encounter Goals Goal Patient Goal Type Associated Problems Recent Progress Patient-Stated? Author Blood Pressure < 140/90 Blood Pressure 159/91(2023 12:14 PM EST) No Lopez Marroquin PharmD Hemoglobin A1c < 7 Result Component 5.9( 5 2:18 PM EDT) No Lopez Marroquin, PharmMahin Record your blood sugar as directed Result Component No Ely Darling PharmD documented as of this encounter Visit Diagnoses Not on filedocumented in this encounter Additional Health Concerns Assessment Noted Time PHQ-9 Depression Total Score: 25 024 12:17 PM EDT documented as of this encounter Care Teams Final Cleaner Relationship Specialty Start Date End Date Daija Parry DO [address] [place] [address] PCP - General Family Medicine 12/22/14 Ely Darling PharmD [address] [place] [address] Pharmacist Internal Medicine 11/22/22 documented as of this encounter
--- OUTSIDE RECORDS SUMMARY | 2024-07-15 16:35 | XMS_ITS | Encounter Summary ---
Author Organization [facility] Address [address] [place] [address] 7[address] [place] [address] Care Team Providers Care Humanities Coordinator Name Role Phone Josephforeign Daija Primary Care Provider [phone] Ely Darling PharmD Unavailable Reason for Visit * Reason Comments Med Refill Encounter Details Date Type Department Care Team (Late st Contact Info) Description 12/16/2022 Refill [facility] [address] [place] [address] Daphney Roca MD [address] [place], [place] [phone] Mild persistent asthma, unspecified whether complicated Social [...] Description 07/29/2024 9:45 AM EDT Office Visit [facility] [address] [place], [place] [phone] 08/11/2024 10:15 AM EDT Office Visit [facility] [address] [place] [phone] Daija Parry DO [address] [place] [address] 09/09/2024 3:30 PM EDT Office Visit [facility] [address] [place] [address] Yordan, Arielle, OD [address] [place] [address] documented as of this encounter Goals Goal [...] documented as of this encounter Care Teams Humanities Coordinator Relationship Specialty Start Date End Date Daija Parry DO [address] [place] [address] PCP - General Family Medicine 12/22/14 Ely Darling, PharmD [address] [place] [phone] Pharmacist Internal Medicine 11/22/22 documented as of this encounter
--- OUTSIDE RECORDS SUMMARY | 2024-07-15 16:35 | XMS_ITS | Encounter Summary ---
Author Organization [facility] [facility] Address [address] [place] [address] 7t [place] [address] Care Team Providers Care Respiratory Care Practitioner Name Role Phone Daija Parry DO Primary Care Provider DeloLpez moreno PharmD Unavailable Unavail able Ely Darling PharmD Unavailable Encounter Details Date Type Department Care Team ([facility] Contact Info) Description 03/13/2022 Orders Only [facility] [address] [place] [phone] Daija Parry DO [address] [place] [phone] Social History Tobacco Use Types Packs/Day Years [...] Department Care Team (Late Contact Info) Description 07/29/2024 9:45 AM EDT Office Visit [facility] [address] [place] [address] 08/11/2024 10:15 AM EDT Office Visit [facility] [address] [place] [address] Daija Parry DO [address] [place] [address] 09/09/2024 3:30 PM EDT Office Visit [facility] OPTOMETRY [address] [place] [address] Yordan, Arielle, OD [address] [place] [address] documented as of this encounter Procedures Procedure [...] 10:15 AM EDT) Creatinine, Urine 326.51 mg/dL [facility] Microalbumin Urine 24.0 mg/L [facility] Microalbum Creatinine Ratio Ur 7.3 <30 ug/mg cr [facility] Comment:Albumin/Creatinine R atio Reference Ranges: Normal: < 30 ug/mg creatinine Microalbuminuria: 30 - 300 ug/mg creatinineClinical Albuminuria: > 300 ug/mg creatinine 01/02/2023 10:1 5 AM EDT 01/02/2023 11:37 AM EDT Daija Parry DO LAB URINE ORDERABLES Final R esult Performing Organization Address [facility] de Phone Number [facility] [address] [place] [phone] * (ABNORMAL) TSH (06/29/2022 3:06 PM EDT) Pathologist [facility] Thyroid Stimulating Hormone 8.15(H) 0.32 - 4.0 uIU/mL [facility] Comment:Note: A sustained TS H level above 2.5 uIU/mL may warrant further investigation. TSH 3rd Generation ([facility]) 06/29/2022 3:06 PM EDT 06/29/2022 3:06 PM EDT [facility] External Provider LAB BLO OD ORDERABLES Final Result Performing Organization Address [facility] de Phone Number [facility] [address] [place] [phone] * T4, Free (06/29/2022 3:06 PM EDT) [facility] Free T4 (Free Thyroxine) 0.77 0.71 - 1.85 ng/dL [facility] 06/29/2022 3:06 PM EDT 06/29/2022 3:06 PM EDT [facility] External Provider LAB BLO OD ORDERABLES Final Result Performing Organization Address [facility] de Phone Number [facility] [address] [place] [address] [phone] * (ABNORMAL) Basic Metabolic Panel (06/29/2022 3:06 PM EDT) [facility] Sodium 138 135 - 145 mmol/L [facility] Potassium 4.3 3.3 - 5.1 mmol/L [facility] Comment:Slight Hemolysis Chloride 104 96 - 108 mmol/L [facility] Carbon Dioxide 27 22 - 29 mmol/L [facility] Anion Gap 11(L) 12 - 20 [facility] Urea Nitrogen (BUN) 13 9 - 16 mg/dL [facility] Creatinine, Serum 0.71 0.5 - 1.4 mg/dL [facility] Estimated Glomerular Filt Rate >60 [facility] Comment:NOTE: For -Am erican individuals, multiply the result by 1.210.Chronic Kidney Disease: Estimated GFR < 60 mL/min/1.84d7Dydqat Kidney Disease: Estimated GFR < 15 mL/min/1.73m2 Glucose 113 60 - 115 mg/dL [facility] Calcium 9.2 8.4 - 10.2 mg/dL [facility] 06/29/2022 3:06 PM EDT 06/29/2022 3:06 PM EDT us [facility] External Provider LAB BLO OD ORDERABLES Final Result [facility] [address] [place] [phone] * Hemoglobin A1c (06/29/2022 3:06 PM EDT) Hemoglobin A1c 6.7 % [facility] Comment:Hemoglobin A1C Refer ence Range Adults: 4.8 - 6.0 % Non diabetic: < 6.0 % Goal: < 7.0 %Additional Action Suggested: > 8.0 %Note: Hemoglobin A1c results are invalid for patients with abnormal amounts of HbF. Blood transfusions may impact the HbA1c concentration in the patient sample. Estimated Average Glucose 146 mg/dL [facility] Comment:eAG = Estimated ave rage glucose which is %A1C expressed asaverage glucose, using the formula of the [id number] Glucose study (ADAG), Diabetes Care, Vol.31,#8,Nov. 2007 06/29/2022 3:06 PM EDT 06/29/2022 3:06 PM EDT us [facility] External Provider LAB BLO OD ORDERABLES Final Result [facility] [address] [place], [place] [phone] * (ABNORMAL) CBC auto differential (06/29/2022 3:06 PM EDT) White Blood Count 9.9 4.8 - 10.8 X10*3/uL [facility] Red Blood Count 4.49 4.20 - 5.50 X10*6/uL [facility] Hemoglobin 13.8 12.0 - 16.0 g/dl [facility] Hematocrit 40.2 37.0 - 47.0 % [facility] Mean Corpuscular Volume 89.5 80.0 - 98.0 fL [facility] Mean Corpuscular Hemoglobin 30.7 27.0 - 33.0 pg [facility] Mean Corpuscular HGB Conc 34.3 31.0 - 35.0 g/dl [facility] Red Cell Distribution Width 13.2 11.0 - 16.0 % [facility] Platelet Count 277 160 - 400 X10*3/uL [facility] Mean Platelet Volume 9.3(L) 9.4 - 12.3 fL [facility] Neutrophils Percent Auto 74.2(H) 45 - 73 % [facility] Imm Gran Pct Auto 0.4 0.0 - 0.4 % [facility] Lymphocytes Percent Auto 17.4(L) 20 - 40 % [facility] Monocytes Percent Auto 7.1 2 - 11 % [facility] Eosinophils Percent Auto 0.6 0 - 4 % [facility] Basophils Percent Auto 0.3 0 - 2 % [facility] NRBC Pct Auto 0.0 0.0 - 0.2 /100WBC [facility] Neutrophils Absolute Auto 7.4 2.0 - 8.3 x10*3/uL [facility] Imm Gran Abs Auto 0.04(H) 0.00 - 0.03 X10*3/uL [facility] Lymphocytes Absolute Auto 1.7 1.2 - 4.9 X10*3/uL [facility] Monocytes Absolute Auto 0.7 0.1 - 1.2 X10*3/uL [facility] Eosinophils Absolute Auto 0.1 0.0 - 0.4 X10*3/uL [facility] Basophils Absolute Auto 0.0 0.0 - 0.2 X10*3/uL [facility] NRBC Abs Auto 0.000 0.0 - 0.012 X10*3/uL [facility] 06/29/2022 3:06 PM EDT 06/29/2022 3:06 PM EDT [facility] External Provider LAB BLO OD ORDERABLES Final Result [facility] [address] [place] [phone] [phone] documented in this encounter Visit Diagnoses Not on filedocumented in this encounter Additional Health Concerns Assessment Noted Time PHQ-9 Depression Total Score: 24 022 10:57 AM EST documented as of this encounter Care Teams Respiratory Care Practitioner Relationship Specialty Start Date End Date Daija Parry DO [address] [place] [phone] PCP - General Family Medicine 12/22/14 Lopez Marroquin, PharmD [address] [place] [phone] Pharmacist Internal Medicine 06/25/22 11/22/22 Ely Darling PharmD [address] [place] [address] Pharmacist Internal Medicine 11/22/22 documented as of this encounter
--- OUTSIDE RECORDS SUMMARY | 2024-07-15 16:35 | XMS_ITS | Clinical Summary ---
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 pantoprazole (ProtoNix) 40 MG EC tablet Take 1 tablet by mouth 2 times daily. Active pancrelipase, Qmj-Xoxq-Namt, (Creon) 65512-22013 units capsule Take 2 capsules by mouth [...] anxiety. Active ergocalciferol (Vitamin D2) 1.25 MG (69026 UT) capsuleIndicati ons:Vitamin D deficiency Take 1 capsule (1.25 mg) by mouth 1 (one) time per week. 5 capsule 3 024 Active Diclofenac Sodium 1 % gelIndications: Chronic low back pain, unspecified back pain laterality, unspecified whether sciatica present APPLY 2 GRAMS TOPICALLY TO AFFECTED AREA(S) TWICE DAILY 100 g 3 024 Active alosetron (Lotronex) 1 MG tablet Take 1 mg by mouth 2 times daily. Active Alcohol Swabs (Alcohol Prep) padsIndications :Type 2 diabetes mellitus without complication, without long-term current use of insulin ([facility]) Use one pad BID when checking blood glucose 100 each Active empagliflozin (Jardiance) 10 MGIndications:T ype 2 diabetes mellitus without complication, without long-term current use of insulin ([facility]) Take 1 tablet (10 mg) by mouth Once per day. 30 tablet 2024 Active glucose blood (FREESTYLE LITE) test stripIndication s:Type 2 diabetes mellitus without complication, without long-term current use of insulin ([facility]) Use to monitor blood glucose twice daily 100 each Active TRUEplus Lancets 33G miscIndications :Type 2 diabetes mellitus without complication, without long-term current use of insulin ([facility]) Use to test blood sugar 2 time(s) daily 100 each Active Blood Glucose Monitoring Suppl (FreeStyle Deposit Lite) w/Device kit Use to test blood [...] NEEDED FOR NAUSEA AND VOMITING Active Nystop 083021 UNIT/GM powder APPLY TOPICALLY TO THE AFFECTED [...] bedtime. 30 tablet 5 024 2024 Active levothyroxine (Synthroid, Levoxyl) 75 MCG tabletIndicatio ns:Hypothyroidi sm, unspecified type TAKE 1 TABLET BY MOUTH EVERY MORNING WITH 200 mcg 90 tablet 1 Active PARoxetine (Paxil) 10 MG tablet TAKE 1 TABLET BY MOUTH EVERY MORNING 30 tablet 1 Active ibuprofen 800 MG tabletIndicatio ns:Pain TAKE 1 TABLET BY MOUTH THREE TIMES DAILY WITH FOOD NEEDED FOR PAIN 60 tablet 2 024 Active Trulicity 0.75 MG/0.5ML solution auto-injectorIn dications:Type 2 diabetes mellitus without complication, without long-term current use of insulin ([facility]) INJECT ONE PEN (=0.75MG) SUBCUTANEOUSLY ONCE A WEEK DIRECTED 2 mL 11 Active losartan (Cozaar) 100 MG tabletIndicatio ns:Essential hypertension TAKE 1 TABLET BY MOUTH EVERY EVENING 90 tablet 3 025 Active fluticasone furoate (Arnuity Ellipta) 200 MCG/ACT inhaler INHALE 1 PUFF BY MOUTH EVERY DAY. RINSE MOUTH AFTER USING. 30 each Active furosemide (Lasix) 20 MG tablet TAKE 1 TABLET BY MOUTH EVERY DAY NEEDED SWELLING 30 tablet 025 Active acetaminophen (Tylenol 8 Hour) 650 MG ER tabletIndicatio ns:Pain TAKE 1 TABLET BY MOUTH EVERY 6 HOURS NEEDED FOR PAIN OR FEVER 100 tablet 025 Active levothyroxine (Synthroid, Levoxyl) 200 MCG tabletIndicatio ns:Hypothyroidi sm, unspecified type TAKE 1 TABLET BY MOUTH EVERY MORNING BEFORE BREAKFAST 90 tablet 025 Active traMADol (Ultram) 50 MG tabletIndicatio ns:Chronic bilateral low back pain with bilateral sciatica Take 1 tablet (50 mg) by mouth every 6 (six) hours if needed for severe pain for up to 28 days. 112 tablet 025 2024 Active gabapentin (Neurontin) 400 MG capsule TAKE 1 CAPSULE BY MOUTH THREE TIMES DAILY IN THE MORNING, EVENING, AND BEDTIME 90 capsule 3 025 Active D3 Super Strength 50 MCG (1999 UT) capsuleIndicati ons:Vitamin D deficiency TAKE 1 CAPSULE BY MOUTH EVERY MORNING 30 capsule 11 025 Active cholecalciferol (Vitamin D-3) 50 MCG (1999 UT) capsuleIndicati ons:Vitamin D deficiency Take 1 capsule (50 mcg) by mouth Once per day. 30 capsule 11 024 2024 Discontinued gabapentin (Neurontin) 400 MG capsule Take 1 capsule (400 mg) by mouth 3 times daily. 90 capsule 3 024 2024 Discontinued traMADol (Ultram) 50 MG tabletIndicatio ns:Chronic bilateral low back pain with bilateral sciatica Take 1 tablet (50 mg) by mouth every 6 (six) hours if needed for severe pain for up to 28 days. Do not start before May 21, 2024. 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 Agreement: 03/04/24 Adjustment disorder with mixed anxiety and depre ssed mood 06/03/2024 Assessment & Plan (06/04/2024 9:38 AM EST): During IBH Consult Shereen presenting with depressed mood, Tearful, crying spells , hopelessness, irritable mood, loss of interests/pleasure , sense of isolation/loneliness , isolating, change in appetite or weight reduce appetite, changes in sleep sleeping too much, psychomotor retardation, fatigue/loss of energy, worthlessness, inappropriate/excessive guilt , difficulty concentrating, indecisiveness and excessive worry/anxiety, difficulty controlling worry, anxiety/worry associated to restlessness and/or feeling keyed-up/On edge , easily fatigued , difficulty concentrating and/or mind going blank , irritability, and sleep disturbance sleeping too much, Fear , and sense of dread ; for a period of 0-6 mo, for some symptoms in the context of . Shereen reported her brother last week unexpectedly. Pt is having a difficult time processing her loss. Positive support received by her family and support in the community. Shereen identifies her jessica and sense of spirituality as main strength. Pt currently has services with [facility] for psychiatry and is also in wait list for OP individual therapy. clinician engaged patient with active/reflective listening. Reviewed and assessed for risk, current stressors and protective factors using open-ended questions. clinician will provide follow-up BE for additional support. Provided [facility] contact information. Chronic, continuous use of opioids 01/01/2024 Overview (03/04/2024): Dx: Chronic Back Pain with Sciatica Rx: Tramadol 50mg Q6 hours Tier 2, visits every 3 months [employer] OUTSOLE SPLITTER Agreement signed: 03/04/24 Additional considerations: Restrictive lung [...] lumbar, with myelopathy 04/17/2022 Assessment & Plan (06/03/2024 2:35 PM EST): -Good engagement and participation with Group Medical Visit model -Encouraged multifactorial approach to pain control including pharm and non- pharm modalities -UTOX and Pill count (phone/in person) as expected Assessment & Plan (01/30/2024 11:55 AM EDT): [...] 07/12/2023 Migraine 07/12/2023 07/12/2023 Missing teeth, acquired 05/14/2023 02/2 Dyspnea 05/03/2023 05/03/2023 07/12/2023 Patellofemoral arthralgia of right knee 02/21/2022 07/12/2023 Systolic hypertension 07/21/20212023 Essential hypertension 01/27/201505/26 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 Date Type Department Care Team Description 07/12/2024 Refill [facility] [address] [facility] [place] [address] Daija Parry DO Chronic low back pain, unspecified back pain laterality, unspecified whether sciatica present 07/10/2024 Travel 07/03/2024 Telephone [facility] MEDICINE [address] [place] [address] Daija Parry DO DME from [facility] 06/30/2024 Orders Only GENERIC EXTERNAL DATA DEPARTMENT Provider, Generic External Data 06/30/2024 Refill [facility] MEDICINE [address] [place] [address] Daija Parry DO Vitamin D deficiency 06/21/2024 Refill [facility] MEDICINE [address] [place] [address] Daija Parry DO 06/19/2024 Refill [facility] MED & PEDS [address] [place] [address] Daija Parry DO Chronic bilateral low back pain with bilateral sciatica 06/06/2024 Telephone [facility] MEDICINE [address] [place] [address] Daija Parry DO 06/05/2024 Telephone [facility] MEDICINE [address] [place] [address] Daija Parry DO Recall Appt. 06/05/2024 Travel 06/03/2024 9:45 AM EST Office Visit [facility] MEDICINE [address] [place] [address] Xavieren, Chloé, ASSOCIATE PRODUCT INTEGRITY ENGINEER Spondylosis, lumbar, with myelopathy (Primary Dx); Long-term current use of opiate analgesic 06/03/2024 Travel 05/15/2024 Refill [facility] PED[facility] [address] [place] [address] Daija Parry DO Chronic bilateral low back pain with bilateral sciatica 05/15/2024 Refill [facility] MEDICINE [address] [place] [address] Daija Parry DO Pain 05/08/2024 Refill [facility] MEDICINE [address] [place] [address] Daija Parry, Hypothyroidism, unspecified type 05/05/2024 Refill [facility] MEDICINE [address] [place] [address] Daija Parry, Pain 05/03/2024 Refill [facility] [address] [place] [address] Daija Parry, 05/02/2024 Telephone [facility] MEDICINE [address] [place] [address] Daija Parry, Nurse Triage 05/01/2024 Telephone [facility] MEDICINE [address] [place] [address] Daija Parry, Appointment Request 05/01/2024 Refill [facility] [address] [place] [address] Daija Parry DO Essential hypertension 04/29/2024 Refill [facility] MEDICINE [address] [place] [address] Daija Parry, Type 2 diabetes mellitus without complication, without long-term current use of insulin ([facility]) 04/17/2024 Refill [facility] [address] [place] [address] Daija Parry, Chronic bilateral low back pain with bilateral sciatica (Primary Dx) from Last 3 Months Immunizations Name Administration [...] the past 12 months, has t he [employer], gas, oil or water company threatened to [...] 07/29/2024 9:45 AM EDT Office Visit [facility] MEDICINE [address] [place] [phone] 08/11/2024 10:15 AM EDT Office Visit [facility] MEDICINE [address] [place] [phone] Daija Parry DO [address] [place] [address] 09/09/2024 3:30 PM EDT Office Visit [facility] OPTOMETRY [address] [place], [place] [phone] Arielle Farr, OD [address] [place] [address] Health Maintenance Due Date Last Done Comments [...] Screening 11/25/2023 Pap Smear 11/25/2023 11/24/2020, 11/22/2020 Dental X-Ray: Bitewings 05/15/2024 05/14/2023, 07/14 Diabetes: Urine Protein Screening 07/11/2024 07/12/2023, 05/03/2023, 01/04/2023, Additional history exists SDOH Screening 07/11/2024 07/12/2023 Lipid Panel 07/31/2024 07/15/2024, 07/09, 05/03/2023, Additional history exists DTaP/Tdap/Td Vaccines (8 - Td or Tdap) 09/22/2024 09/22/2014, 02/06/2012, 05/23/1995, Additional history exists Eye Exam 01/08/2025 01/08/2023, 05/2022, 01/08/2023, Additional history exists Depression Monitoring (PHQ-9) 01/09/2025 07/10/2024, 07/10/2024 Diabetes: Hemoglobin A1C 01/14/2025 025, 12/11/2023, 08/01/2023, Additional history exists Mammogram 02/13/2025 02/14/2024, 10/08, 10/29/2020, Additional history exists Tobacco Screening 03/04/2025 03/04/2024 Depression Screening 07/10/2025 07/10/2024, 07/11/19 Dental X-Ray: Full Mouth 05/15/2026 024, 08/18/2016, [...] 5.9( 2:18 PM EDT) No Lopez Marroquin PharmD Record your blood sugar as directed Result Component No Ely Darling PharmD Procedures Procedure Name Priority Date/Time Associated Diagnosis Comments FERRITIN Routine 07/15/2024 2:18 PM EDT Fatigue, unspecified type BOUDREAUX (dyspnea on exertion) Major depression, recurrent, chronic (CMS/HCC) AISHWARYA (obstructive sleep apnea) IRON AND TOTAL IRON BINDING CAPACITY Routine 07/15/2024 2:18 PM EDT Fatigue, unspecified type BOUDREAUX (dyspnea on exertion) Major depression, recurrent, chronic (CMS/HCC) AISHWARYA (obstructive sleep apnea) VITAMIN B12/FOLATE, SERUM PANEL Routine 07/15/2024 2:18 PM EDT Fatigue, unspecified type BOUDREAUX (dyspnea on exertion) Major depression, recurrent, chronic (CMS/HCC) AISHWARYA (obstructive sleep apnea) CBC Routine 07/15/2024 2:18 PM EDT Fatigue, unspecified type BOUDREAUX (dyspnea on exertion) Major depression, recurrent, chronic (CMS/HCC) AISHWARYA (obstructive sleep apnea) BASIC METABOLIC PANEL Routine 07/15/2024 2:18 PM EDT Fatigue, unspecified type BOUDREAUX (dyspnea on exertion) Major depression, recurrent, chronic (CMS/HCC) AISHWARYA (obstructive sleep apnea) HEMOGLOBIN A1C Routine 07/15/2024 2:18 PM EDT Fatigue, unspecified type BOUDREAUX (dyspnea on exertion) Major depression, recurrent, chronic (CMS/HCC) AISHWARYA (obstructive sleep apnea) HEPATIC FUNCTION PANEL Routine 2:18 PM EDT Fatigue, unspecified type BOUDREAUX (dyspnea on exertion) Major depression, recurrent, chronic (CMS/HCC) AISHWARYA (obstructive sleep apnea) LIPID PANEL, STANDARD Routine 07/15/2024 2:18 PM EDT Fatigue, unspecified type BOUDREAUX (dyspnea on exertion) Major depression, recurrent, chronic (CMS/HCC) AISHWARYA (obstructive sleep apnea) VITAMIN D,25-OH,TOTAL,IA Routine 07/15/2024 2:18 PM EDT Fatigue, unspecified type BOUDREAUX (dyspnea on exertion) Major depression, recurrent, chronic (CMS/HCC) AISHWARYA (obstructive sleep apnea) T4, FREE Routine 07/15/2024 2:18 PM EDT Fatigue, unspecified type BOUDREAUX (dyspnea on exertion) Major depression, recurrent, chronic (CMS/HCC) AISHWARYA (obstructive sleep apnea) TSH Routine 07/15/2024 2:18 PM EDT Forgetfulness CHLAMYDIA/N. GONORRHOEAE RNA, TMA, UROGENITAL Routine 07/15/2024 1:13 PM EDT Fatigue, unspecified type BOUDREAUX (dyspnea on exertion) Major depression, recurrent, chronic (CMS/HCC) AISHWARYA (obstructive sleep apnea) GLUCOSE, WHOLE BLOOD Routine 06/30/2024 12:15 PM EDT HCG, QL, URINE Routine 06/30/2024 11:43 AM EDT POCT BENITO-14 URINE DRUG SCREEN Routine 06/03/2024 1:34 PM EST Long-term current use of opiate analgesic BI MAMMOGRAM SCREENING TOMOSYNTHESIS BILATERAL Routine 02/14/2024 12:07 PM EST Encounter for screening mammogram for malignant neoplasm of breast ALBUMIN, RANDOM URINE W/CREATININE Routine 07/12/2023 1:41 [...] ESTABLISHED PATIENT Routine 05/14/2023 2:00 PM EST ZYARON HISTORICAL HEPATITIS C ANTIBODY RFLX Routine 06/22/2021 2:41 PM EDT ZZZ HISTORICAL HIV AB/AG Routine 06/22/2021 2:41 PM EDT THINPREP IMAGING SYSTEM PAP Routine 11/24/2020 6:42 AM EDT HM COLONOSCOPY Routine 08/15/2012 8:08 AM EDT from Last 3 Months or Most Recently Relevant to Health Maintenance Results * (ABNORMAL) Vitamin D, 25-Hydroxy, Total, Immunoassay (07/15/2024 2:18 PM EDT) Pathologist [facility] Vitamin D 25-OH Total 11.1(L) >30 ng/mL [facility] Comment: Health Based Reference Values*< 20 ??ng/mL ??Usgvkliug56-54 ng/mL ??Insufficient> 30 ??ng/mL ??Sufficient*Rosa HOYOS. N Engl J Med. 2007;357:266-280There is no well-established upper level of normal vitamin Dlevels. Some laboratories use 50 ng/mL as an upper limit ofnormal. However, toxicity is patient-dependent and may occurat any level. Careful correlation with the patient'spresentation is necessary and, if there is concern forvitamin D toxicity, treatment should be consideredirrespective of the serum level.Care must be taken in interpreting Vitamin D results fromdifferent laboratories and methodologies. ??Published datademonstrated that results from patients undergoinghemodialysis may show a negative bias when tested withvarious automated 25-OH vitamin D assays when compared toLC- MS/MS.When testing samples from patients whose predominant form ofVitamin D is Vitamin D2, such as patients receiving VitaminD2 supplementation, results that are subtherapeutic shouldbe confirmed with another method such as LC-MS/MS. Blood Venous blood specimen / Unknown 07/15/2024 2:18 PM EDT 07/15/2024 2:18 PM EDT Daija Parry DO LAB BLOOD ORDERABLES Final R esult Performing Organization Address [facility]/ZIP Co de Phone Number [facility] [address] [place] [address] [phone] * Vitamin B12 (Cobalamin) and Folate Panel, Serum (07/15/2024 2:18 PM EDT) Vitamin B12 242 200 - 900 pg/mL [facility] Comment:NORMAL 200-900 PG/ML INDETERMINATE 160-199 PG/ML DEFICIENT < 160 PG/ML Folate 6.0 > or = 4.0 ng/mL [facility] Comment:Reference Values:> o r = 4.0 ng/mL< 4.0 ng/mL suggests folate deficiency Methotrexate, aminopterin and folinic acid(leucovorin) are chemotherapeutic agents whose molecularstructures are similar to folate; therefore, the Architectfolate assay cannot be used for patients using these drugs. Blood Venous blood specimen / Unknown 07/15/2024 2:18 PM EDT 07/15/2024 2:18 PM EDT us Daija Parry DO LAB BLOOD ORDERABLES Final R esult Performing Organization Address [facility] Co de Phone Number [facility] [address] [place] [phone] * Iron And Total Iron Binding Capacity (07/15/2024 2:18 PM EDT) Iron 68 30 - 160 mcg/dL [facility] Total Iron Binding Capacity 262 228 - 428 mcg/dL [facility] Percent Iron Saturation 26 15 - 50 % [facility] Unsaturated Iron Binding 194 ug/dL [facility] Blood Venous blood specimen / Unknown 07/15/2024 2:18 PM EDT 07/15/2024 2:18 PM EDT us Daija Parry DO LAB BLOOD ORDERABLES Final R esult Performing Organization Address City/[facility] Co de Phone Number [facility] [address] [place] [address] [phone] * (ABNORMAL) CBC (07/15/2024 2:18 PM EDT) White Blood Count 7.6 4.8 - 10.8 X10*3/uL [facility] Red Blood Count 4.57 4.20 - 5.50 X10*6/uL [facility] Hemoglobin 14.0 12.0 - 16.0 g/dl [facility] Hematocrit 39.2 37.0 - 47.0 % [facility] Mean Corpuscular Volume 85.8 80.0 - 98.0 fL [facility] Mean Corpuscular Hemoglobin 30.6 27.0 - 33.0 pg [facility] Mean Corpuscular HGB Conc 35.7(H) 31.0 - 35.0 g/dl [facility] Red Cell Distribution Width 12.8 11.0 - 16.0 % [facility] Platelet Count 228 160 - 400 X10*3/uL [facility] Mean Platelet Volume 9.9 9.4 - 12.3 fL [facility] NRBC Pct Auto 0.0 0.0 - 0.2 /100WBC [facility] NRBC Abs Auto 0.000 0.0 - 0.012 X10*3/uL [facility] Blood Venous blood specimen / Unknown 07/15/2024 2:18 PM EDT 07/15/2024 2:18 PM EDT us Daija Parry DO LAB BLOOD ORDERABLES Final R esult [facility] [address] [place] [phone] [phone] * (ABNORMAL) TSH (07/15/2024 2:18 PM EDT) Thyroid Stimulating Hormone 7.67(H) 0.32 - 4.0 uIU/mL [facility] Comment:Note: A sustained TS H level above 2.5 uIU/mL may warrant further investigation. TSH 3rd Generation ([facility]) Blood Venous blood specimen / Unknown 07/15/2024 2:18 PM EDT 07/15/2024 2:18 PM EDT Daija Parry DO LAB BLOOD ORDERABLES Final R esult Performing Organization Address City/[facility]/ZIP Co de Phone Number [facility] [address] [place] [phone] * T4, Free (07/15/2024 2:18 PM EDT) Free T4 (Free Thyroxine) 0.93 0.71 - 1.85 ng/dL [facility] Blood Venous blood specimen / Unknown 07/15/2024 2:18 PM EDT 07/15/2024 2:18 PM EDT Daija Brunoshantal DO LAB BLOOD ORDERABLES Final R esult Performing Organization Address City/[facility]/ZIP Co de Phone Number [facility] [address] [place] [phone] * Hemoglobin A1c (07/15/2024 2:18 PM EDT) Hemoglobin A1c 5.9 <6.0 % [facility] Comment:Hemoglobin A1C Refer ence Range Adults: 4.8 - 6.0 % Non diabetic: < 6.0 % Goal: < 7.0 %Additional Action Suggested: > 8.0 %Note: Hemoglobin A1c results are invalid for patients with abnormal amounts of HbF. Blood transfusions may impact the HbA1c concentration in the patient sample. Estimated Average Glucose 123 mg/dL [facility] Comment:eAG = Estimated ave rage glucose which is %A1C expressed asaverage glucose, using the formula of the [id number] Glucose study (ADAG), Diabetes Care, Vol.31,#8,2007 Blood Venous blood specimen / Unknown 07/15/2024 2:18 PM EDT 07/15/2024 2:18 PM EDT Daija Parry DO LAB BLOOD ORDERABLES Final R esult Performing Organization Address City/[facility]/ZIP Co de Phone Number [facility] [address] [place] [phone] * Ferritin (07/15/2024 2:18 PM EDT) Ferritin 141 10 - 250 ng/mL [facility] Blood Venous blood specimen / Unknown 07/15/2024 2:18 PM EDT 07/15/2024 2:18 PM EDT Daija Parry [employer] LAB BLOOD ORDERABLES Final R esult Performing Organization Address [facility] Co de Phone Number [facility] [address] [place] [phone] * Hepatic Function Panel (07/15/2024 2:18 PM EDT) Bilirubin, Total 0.4 0.0 - 1.0 mg/dL [facility] Bilirubin, Direct 0.2 0.0 - 0.5 mg/dL [facility] Aspartate Amino Transferase 23 5 - 31 U/L [facility] Alanine Aminotransferase 29 0 - 31 U/L [facility] Total Protein 7.5 6.5 - 8.0 g/dL [facility] Albumin Level 4.0 3.5 - 5.0 g/dL [facility] Alkaline Phosphatase 94 39 - 117 U/L [facility] Blood Venous blood specimen / Unknown 07/15/2024 2:18 PM EDT 07/15/2024 2:18 PM EDT Daija Parry LAB BLOOD ORDERABLES Final R esult Performing Organization Address [facility] Co de Phone Number [facility] [address] [place] [phone] * Lipid Panel, Standard (07/15/2024 2:18 PM EDT) Triglycerides 81 <150 mg/dL [facility] Comment:Desirable Triglyceri de: less than 150 mg/dLBorderline High Triglyceride 150-199 mg/dLHigh Triglyceride: 200-499 mg/dLVery High Triglyceride: greater than or equal to 5OO mg/dL Cholesterol 166 <200 mg/dL [facility] Comment:Desirable Cholestero l: less than 200 mg/dLBorderline High Cholesterol: 200-239 mg/dLHigh Cholesterol: greater than 239 mg/dL LDL Cholesterol Calculated 93 <100 mg/dL [facility] Comment:Desirable LDL: less than 100 mg/dLNear Optimal/Above Optimal LDL: 110- 129 mg/dLBorderline High LDL: 130-159 mg/dLHigh LDL: 160-189 mg/dLVery High LDL: greater than or equal to 190 mg/dL HDL Cholesterol 57 >40 mg/dL [facility] Comment:Desirable HDL: great er than 40 mg/dL Note: This HDL assay may give artificially low results in patients with liver disease. Blood Venous blood specimen / Unknown 07/15/2024 2:18 PM EDT 07/15/2024 2:18 PM EDT us Daija Parry DO LAB BLOOD ORDERABLES Final R esult [facility] [place], [place] [phone] * (ABNORMAL) Basic Metabolic Panel (07/15/2024 2:18 PM EDT) Sodium 139 135 - 145 mmol/L [facility] Potassium 4.0 3.3 - 5.1 mmol/L [facility] Chloride 105 96 - 108 mmol/L [facility] Carbon Dioxide 26 22 - 29 mmol/L [facility] Anion Gap 12 12 - 20 [facility] Urea Nitrogen (BUN) 13 9 - 16 mg/dL [facility] Creatinine, Serum 0.75 0.5 - 1.4 mg/dL [facility] Estimated Glomerular Filt Rate >60 [facility] Comment:Chronic Kidney Disea se: Estimated GFR < 60 mL/min/1.04z4Yrhioa Kidney Disease: Estimated GFR < 15 mL/min/1.73m2 Glucose 134(H) 60 - 115 mg/dL [facility] Calcium 8.9 8.4 - 10.2 mg/dL [facility] Blood Venous blood specimen / Unknown 07/15/2024 2:18 PM EDT 07/15/2024 2:18 PM EDT us Daija Parry DO LAB BLOOD ORDERABLES Final R esult [facility] [address] [place] [phone] * Chlamydia/N. Gonorrhoeae RNA, TMA, Urogenitial (07/15/2024 1:13 PM EDT) CT PCR NOT DETECTED Not Detect. [facility] Comment:A not detected test result does not exclude the possibilityof infection because test results can be affected byimproper specimen collection, concurrent antibiotic therapy,or the number of organisms in the specimen which may bebelow the sensitivity of the test. As with many diagnostictests, results from the Xpert CT/NG assay should beinterpreted in conjunction with other laboratory andclinical data available to the clinician.Xpert CT/NG performance has not been evaluated in patientsless than 14 years of age. The assay should not be used forthe evaluationof suspected sexual abuse or for other medico-legalindications. Additional testing is recommended in anycircumstance when false positive or false negative resultscould lead to adverse medical, social or psychologicalconsequences. NG PCR NOT DETECTED Not Detect. [facility] Comment:A not detected test result does not exclude the possibilityof infection because test results can be affected byimproper specimen collection, concurrent antibiotic therapy,or the number of organisms in the specimen which may bebelow the sensitivity of the test. As with many diagnostictests, results from the Xpert CT/NG assay should beinterpreted in conjunction with other laboratory andclinical data available to the clinician.Xpert CT/NG performance has not been evaluated in patientsless than 14 years of age. The assay should not be used forthe evaluationof suspected sexual abuse or for other medico-legalindications. Additional testing is recommended in anycircumstance when false positive or false negative resultscould lead to adverse medical, social or psychologicalconsequences. Urine Urethral structure / Unknown 07/15/2024 1:13 PM EDT 07/15/2024 2:25 PM EDT Narrative [facility] - 07/15/2024 4:26 PM EDT Urine us Daija Parry DO LAB MICROBIOLOGY - GENERAL O RDERABLES Final Result Performing Organization Address City/[facility]/ZIP Co de Phone Number [facility] [address] [place] [phone] * (ABNORMAL) Glucose, Whole Blood (06/30/2024 12:15 PM EDT) Glucose, Whole Blood 143(H) 60 - 115 mg/dL [facility] Comment:METER #: [id number] 06/30/2024 12:1 5 PM EDT 06/30/2024 12:18 PM EDT us Generic External Data Provider LAB BLOOD ORDERAB LES Final Result Performing Organization Address [facility]/ZIP Co de Phone Number [facility] [address] [place] [phone] * HCG, Qualitative, Urine (06/30/2024 11:43 AM EDT) Urine NEGATIVE NEGATIVE [facility] Comment:This test was develo ped to detect early . Falsenegative results may occur after the 5th - 7th week ofpregnancy when using this test method. If clinicallyindicated, consider a serum hCG. 06/30/2024 11:4 3 AM EDT 06/30/2024 11:44 AM EDT us Generic External Data Provider LAB URINE ORDERAB LES Final Result [facility] [address] [facility] [place] [address] [phone] * POCT BENITO-14 Urine Drug Screen (06/03/2024 1:34 PM EST) Urine Urine specimen obtained by clean catch procedure / Unknown 06/03/2024 1:34 PM EST Narrative Lakesha Graham RN - 06/03/2024 1:34 PM EST UTOX cup Lot#[id number] Exp. 11/26/25 Internal Pass Control Negative for all substances Chloé Wilson ASSOCIATE PRODUCT INTEGRITY ENGINEER POINT OF CARE TEST ENTER/EDIT ORDERABLES Final Result * BI Mammogram Screening Tomosynthesis Bilateral (02/14/2024 12:07 PM EST) Anatomical Region Laterality Modality Breast Bilateral Mammography 02/14/2024 12:0 7 PM EST Narrative 02/22/2024 4:11 PM EST ? [facility] ? [address] ?[place] [address] ? Mammography Report ? Signed ? Patient: Cuellar,Shereen ?MR#: [id number] ? : 1975 ?Acct:[id number] ? Age/Sex: 48 / F ?ADM Date: 11//24 ? Loc: HO.MAMMO ? Attending Dr: Daija Parry DO ? Ordering Physician: Daija Parry DO ?Results: 1N ?? egative ? Date of Service: 02/14/24 ?Follow Up: 1 Year From Orig ?? inal Mammogram ? Procedure(s): MM tomosynthesis screening BI ?? Accession Number(s): [id number] ? cc: Daija Parry DO ? EXAMINATION: [...] ??Sushila Moon DO ??02/22/2024 04:08 PM EST ?? RP ? Dictated By: ?Sushila Moon DO ? Signed By: ?<Electronically signed by Sushila Moon, DO in OV> ? 02/22/24 1608 ? DD/ 1207 ? TD/TT: 02/14/24 1223 ? Correctional Therapy Teacher: ? Procedure Note Kortney, Image - 02/22/2024 [facility] [address] [place] [address] Dr. [place], [place] [address] Mammography Report Signed Patient: Kira Cuellar#: [id number] : 1975Acct:[id number] Age/Sex: 48 / FADM Date: 02/14/24 Loc: HO.MAMMO Attending Dr: Daija Parry DO Ordering Physician: Daija Parryults: 1N egative Date of Service: 02/14/24Follow Up: 1 Year From Orig ina Mammogram Procedure(s): MM tomosynthesis screening BI Accession Number(s): [id number] cc: Daija Parry DO EXAMINATION: MM SCREENING [...] by: Sushila Moon DO 02/22/2024 04:08 PM EST Dictated By: Sushila Moon DO Signed By: <Electronically signed by Sushila Moon DO in OV> 02/22/24 1608 DD/ 1207 TD/TT: 02/14/24 1223 Correctional Therapy Teacher: us Daija Parry DO IMG BI PROCEDURES Final Resu lt * Albumin, Random Urine W/Creatinine (07/12/2023 1:41 PM EDT) Creatinine, Urine 110.18 mg/dL [facility] Microalbumin Urine 23.0 mg/L [facility] Microalbum Creatinine Ratio Ur 20.8 <30 ug/mg cr [facility] Comment:Albumin/Creatinine R atio Reference Ranges: Normal: < 30 ug/mg creatinine Microalbuminuria: 30 - 300 ug/mg creatinineClinical Albuminuria: > 300 ug/mg creatinine Urine (Urine, Random) 07/12/2023 1:41 PM EDT 07/12/2023 3:52 PM EDT Daija Parry DO LAB URINE ORDERABLES Final R esult Performing Organization Address City/[facility]/ZIP Co de Phone Number [facility] [address] [place] [phone] * HEPATITIS C ANTIBODY RFLX (06/22/2021 2:41 PM EDT) Pathologist [facility] Hepatitis C Antibody Nonreactive Nonreactive [facility] Comment: Antibodies to HCV not detected; does not exclude early acute HCV infection. 06/22/2021 2:41 PM EDT Daija Parry DO HISTORICAL/NON ORDERABLE LAB S Final Result Performing Organization Address City/[facility]/ZIP Co de Phone Number [facility] [address] * HIV AB/AG (06/22/2021 2:41 PM EDT) Pathologist [facility] HIV AB/AG Nonreactive Nonreactive [facility] Comment: HIV-1 p24 Ag and/or [...] detection of this assay. ?? The [employer] HIV Ag/Ab Combo assay result and supplemental assay results should be interpreted in conjunction with the patient's clinical presentation, history and other laboratory results. ??If the results are inconsistent with clinical evidence, additional testing is suggested to confirm the result. Hepatitis B Surface Antibody NONREACTIVE Nonreactive [facility] Comment:Nonreactive: < 8.00 mIU/mL Hepatitis B Surface Antigen Negative Negative [facility] 06/22/2021 2:41 PM EDT Daija Brinda DO HISTORICAL/NON ORDERABLE LAB S Final Result [facility] [address] [place] [phone], * THINPREP TIS PAP (11/24/2020 6:42 AM EDT) Clinical Information: None given [facility] COMMENT SEE COMMENT [facility] Comment: EXPLANATORY NOTE: ? The [...] has been evaluated with computer assisted technology. [facility] Fur Pointer : SEE COMMENT [facility] Comment: ED, CT(ASCP) CT screening location: ?? [facility] ?? [address] [place] [address] ?? [place] [address] Interpretation/R esult: Negative for intraepithelial lesion or malignancy. [facility] LMP: NONE GIVEN [facility] N [facility] SYSTEM PATHOLOGIST: SEE COMMENT [facility]OUND [facility] Comment: Sera Gzuman M.D. Direct , Board Certified in Anatomic and Clinical Pathology and Cytopathology (electronic signature) Consulting Pathologist [facility] [address] [place] [address] Prev. BX: NONE [facility]IVEN [facility] Prev. PAP: NONE GIVEN [facility] ON [facility] SYSTEM SOURCE: Cervix [facility] Statement Of Adequacy: SEE COMMENT [facility] Comment: Satisfactory for evaluation. Endocervical/transformation zone component present. Age and/or menstrual status not provided 11/24/2020 6:42 AM EDT us Daija Parry DO LAB PATHOLOGY ORDERABLES Fin al Result [facility] [address] [place] [address], * Hm Colonoscopy (08/15/2012 8:08 AM EDT) us Historical Provider MD HEALTH MAINTENANCE Final Result from Last 3 Months or Most Recently Relevant to Health Maintenance Insurance [facility] [address] [place] [address] DENTAL - [facility] Care Teams Rubber Covering Machine Operator Relationship Specialty Start Date End Date Daija Parry DO [address] [place] [address] PCP - General Family Medicine 12/22/14 Ely Darling PharmD [address] [place] [address] Pharmacist Internal Medicine 11/22/22
--- OUTSIDE RECORDS SUMMARY | 2024-07-15 16:35 | XMS_ITS | Encounter Summary ---
Author Organization [employer] Address [address] [facility] 7t [place] [address] Care Team Providers Care Catering Sales Manager Name Role Phone Daija Parry DO Primary Care Provider [phone] Ely Darling PharmD Unavailable [phone] Encounter Details Date Type Department Care Team (Late st Contact Info) Description 07/19/2023 Orders Only [facility] [address] [place] [address] ProviderAnnel MD Social History Tobacco Use Types [...] Description 07/29/2024 9:45 AM EDT Office Visit [facility] [address] [place] [address] 08/11/2024 10:15 AM EDT Office Visit [facility] [address] [place] [address] Daija Parry, [address] [place] [address] 09/09/2024 3:30 PM EDT Office Visit [facility] [address] [place] [address] Arielle Farr, OD [address] [place] [address] documented as of this encounter Goals Goal Patient Goal Type Associated Problems Recent Progress Patient-Stated? Author Blood Pressure < 140/90 Blood Pressure 159/91(2023 12:14 PM EST) No Lopez Marroquin, PharmD Hemoglobin A1c < 7 Result Component 5.9( 2:18 PM EDT) No Lopez Marroquin, PharmD Record your blood sugar as directed Result Component No Ely Darling PharmD documented as of this encounter Procedures Procedure Name Priority Date/Time Associated Diagnosis Comments COLONOSCOPY Routine 08/15/2012 8:08 AM EDT documented in this encounter Results * Hm Colonoscopy (08/15/2012 8:08 AM EDT) us Historical Provider HEALTH MAINTENANCE Final Result documented in this encounter Visit Diagnoses Not on filedocumented in this encounter Additional Health Concerns Assessment Noted Time PHQ-9 Depression Total Score: 25 024 12:17 PM EDT documented as of this encounter Care Teams Catering Sales Manager Relationship Specialty Start Date End Date Daija Parry DO [address] [place] [address] PCP - General Family Medicine 12/22/14 Ely Darling PharmD [address] [place] [address] Pharmacist Internal Medicine 11/22/22 documented as of this encounter
--- OUTSIDE RECORDS SUMMARY | 2024-07-15 16:35 | XMS_ITS | Clinical Summary ---
Author Organization [facility] Address [address] [place] [address] Phone Care Team Providers Care Human Resources Technician Name Role Phone Daija Parry DO [...] Do not crush or chew. Active pancrelipase, Tgp-Bjth-Bpus, (Creon) 22469-40999 units capsule Take 1 capsule by mouth in the morning and 1 capsule at noon and 1 capsule in the evening. Take with meals. 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 Hypertension 05/31/2022 Lumbar spondylosis 05/31/2022 Morbid obesity 05/31/2022 Chronic primary bladder pain syndrome 01/27/2015 Irritable bowel syndrome 01/27/2015 Obstructive sleep [...] 11/22/2022, 03/09/2022, Additional history exists Influenza Vaccine (Season Ended) 2024 01/02/2023, 01/20/2022, 02/17/2021, Additional history exists Procedures Procedure [...] 9.6 8.7 - 10.7 mg/dL eGFR Non-Afr Tajik 100 Total Bilirubin 0.4 MG/DL Bilirubin Direct [...] (A2793) [facility] ONE CARE DUAL SNP (A2793) [place] [id number] Care Teams Human Resources Technician Relationship Specialty Start Date End Date Daija Parry DO PCP - General Family Medicine 03/13/22
--- OUTSIDE RECORDS SUMMARY | 2024-07-15 16:35 | XMS_ITS | Encounter Summary ---
Author Organization [facility] Address [address] [place] [address] 7t [place] [address] Care Team Providers Care Lead Cytogenetic Technologist Name Role Phone Daija Parry DO Primary Care Provider DelLopez moreno PharmD Unavailable Unavail able Ely Darling PharmD Unavailable Reason for Visit * Reason Onset Date Comments Med Refill 06/12/2022 Encounter Details Date Type Department Care Team (Late st Contact Info) Description 06/12/2022 Refill [facility] [address] [place], [place] [phone] Daija Parry DO [address] [place], [place] [phone] Generalized anxiety disorder (Primary Dx) Social History [...] Notes * Telephone Encounter - Lesley Morris Martinez - 06/12/2022 9:48 AM EST Tc from pt requesting med refill on zolpidem (Ambien) 10 MG tablet Please sent to [facility] [place], [place] - [address] [place] [address] documented in this encounter Plan of Treatment Upcoming Encounters Date Type Department Care Team (Late st Contact Info) Description 07/29/2024 9:45 AM EDT Office Visit [facility] [address] [place] [address] 08/11/2024 10:15 AM EDT Office Visit [facility] [address] [place] [address] Daija Parry DO [address] [place] [address] 09/09/2024 3:30 PM EDT Office Visit [facility] [address] [place] [address] Yordan, Arielle, OD [address] [place] [address] documented as of this encounter Visit Diagnoses Diagnosis Generalized anxiety disorder- Primary documented in this encounter Additional Health Concerns Assessment Noted Time PHQ-9 Depression Total Score: 24 05/26/ 023 11:12 AM EST documented as of this encounter Care Teams Lead Cytogenetic Technologist Relationship Specialty Start Date End Date Daija Parry DO [address] [place] [address] PCP - General Family Medicine 12/22/14 Lopez Marroquin, PharmD [address] [place] [address] Pharmacist Internal Medicine 06/25/22 11/22/22 Ely Darling, AugustoD [address] [place] [address] Pharmacist Internal Medicine 11/22/22 documented as of this encounter
--- OUTSIDE RECORDS SUMMARY | 2024-07-15 16:35 | XMS_ITS | Encounter Summary ---
Author Organization [facility] Address [address] [place] [address] [place] [address] Care Team Providers Care Talkback Host Name Role Phone Daija Parry DO Primary Care Provider [phone] Ely Darling PharmD Unavailable [phone] Reason for Visit * Reason Comments Med Refill Encounter Details Date Type Department Care Team (Late st Contact Info) Description 01/01/2023 Refill [facility] [address] [place] [address] Daija Parry DO [address] [place], [place] [phone] Social History Tobacco Use Types Packs/Day Years [...] Office Visit [facility] [address] [place] [phone] 08/11/2024 10:15 AM EDT Office Visit [facility] [address] [place] [address] Daija Parry DO [address] [place] [address] 09/09/2024 3:30 PM EDT Office Visit [facility] [address] [place], [place] [phone] YordanArielle bernard, OD [address] [place] [address] documented as of this encounter Goals Goal [...] documented as of this encounter Care Teams Talkback Host Relationship Specialty Start Date End Date Daija Parry DO [address] [place] [address] PCP - General Family Medicine 12/22/14 Ely Darling, PharmD [address] [place] [address] Pharmacist Internal Medicine 11/22/22 documented as of this encounter
--- OUTSIDE RECORDS SUMMARY | 2024-07-15 16:35 | XMS_ITS | Encounter Summary ---
Author Organization [employer] Address [address] [place] [address] 7t [place] [address] Care Team Providers Care Desktop Publisher Name Role Phone Daija Parry DO Primary Care Provider [phone] Ely Darling PharmD Unavailable [phone] Reason for Visit * Reason Onset Date Comments Med Refill 09/09/2023 Encounter Details Date Type Department Care Team (Late st Contact Info) Description 09/09/2023 Refill [facility] [address] [place] [address] Daija Parry DO [address] [place] [address] Chronic bilateral low back pain, unspecified whether [...] the past 12 months, has t he [employer], gas, oil or water [employer] threatened to shut off services in your [...] Description 07/29/2024 9:45 AM EDT Office Visit [facility] [address] [place] [address] 08/11/2024 10:15 AM EDT Office Visit [facility] [address] [place] [address] Daija Parry DO [address] [place] [address] 09/09/2024 3:30 PM EDT Office Visit [facility] OPT[facility]ET[facility] [address] [place], [place] [phone] Arielle Farr, OD [address] [place] [address] documented as of this encounter Goals Goal [...] documented as of this encounter Care Teams Desktop Publisher Relationship Specialty Start Date End Date Daija Parry DO [address] [place] [address] PCP - General Family Medicine 12/22/14 Ely Darling PharmD [address] [place] [phone] Pharmacist Internal Medicine 11/22/22 documented as of this encounter
--- OUTSIDE RECORDS SUMMARY | 2024-07-15 16:35 | XMS_ITS | Encounter Summary ---
Author Organization [employer] Address [address] [place] [address] 7[address] [place] [address] Care Team Providers Care Boiler Engineer Name Role Phone Daija Parry DO Primary Care Provider Lopez Marroquin PharmD Unavailable Unavail able Ely Darling PharmD Unavailable Reason for Visit * Reason Onset Date Comments Appointment Request 06/27/2022 Encounter Details Date Type Department Care Team ([facility] st Contact Info) Description 06/27/2022 Telephone [facility] [address] [place], [place] [phone] Daija Parry DO [address] [place], [place] [phone] Appointment Request Social History Tobacco Use Types [...] recall list. * Telephone Encounter - Lesley Morris Juan - 06/27/2022 3:08 PM EDT Tc from pt requesting to r/s appt for 06/27/2022 Office visit extended. Swinging Cut Off Saw Operator tried booking but noavailable spaces. Please contact pt at [phone] documented in this encounter Plan of Treatment Upcoming Encounters Date Type Department Care Team (Late st Contact Info) Description 07/29/2024 9:45 AM EDT Office Visit [facility] [address] [place] [address] 08/11/2024 10:15 AM EDT Office Visit [facility] [address] [place] [address] Daija Parry DO [address] [place] [address] 09/09/2024 3:30 PM EDT Office Visit [facility] OPTOMETRY [address] [place] [address] Arielle Farr, OD [address] [place] [address] documented as of this encounter Goals Goal Patient Goal Type Associated Problems Recent Progress Patient-Stated? Author Blood Pressure < 140/90 Blood Pressure 159/91(2023 12:14 PM EST) No GregorylogLopez urena, PharmD Hemoglobin A1c < 7 Result Component 5.9( 2:18 PM EDT) No GregorylogManoj urenais, PharmD documented as of this encounter Visit Diagnoses Not on filedocumented in this encounter Additional Health Concerns Assessment Noted Time PHQ-9 Depression Total Score: 24 023 11:12 AM EST documented as of this encounter Care Teams Boiler Engineer Relationship Specialty Start Date End Date Daija Parry DO [address] [place] [address] PCP - General Family Medicine 12/22/14 Lopez Marroquin, AugustoD [address] [place] [address] Pharmacist Internal Medicine 06/25/22 11/22/22 Ely Darling PharmD [address] [place] [address] Pharmacist Internal Medicine 11/22/22 documented as of this encounter
--- OUTSIDE RECORDS SUMMARY | 2024-07-15 16:35 | XMS_ITS | Encounter Summary ---
Author Organization [employer] Address [address] [place] [address] 7t [place] [address] Care Team Providers Care Bucket Pusher Name Role Phone Daija Parry DO Primary Care Provider [phone] Ely Darling PharmD Unavailable Reason for Visit * Reason Comments Med Refill Encounter Details Date Type Department Care Team (Late st Contact Info) Description 09/30/2023 Refill [facility] [address] [place] [address] Daija Parry DO [address] [place] [address] Pain Social History Tobacco Use Types Packs/Day [...] with others, in a hotel, in a fci, living outside on the street, on a [...] the past 12 months, has t he [employer], gas, oil or water company threatened to [...] Description 07/29/2024 9:45 AM EDT Office Visit [facility] [address] [place] [address] 08/11/2024 10:15 AM EDT Office Visit [facility] [address] [place] [address] Daija Parry DO [address] [place] [address] 09/09/2024 3:30 PM EDT Office Visit [facility] [address] [place] [address] Yordan, Arielle, OD [address] [place] [address] documented as of this encounter Goals Goal Patient Goal Type Associated Problems Recent Progress Patient-Stated? Author Blood Pressure < 140/90 Blood Pressure 159/91(2023 12:14 PM EST) No Dellogono, Lopez, PharmD Hemoglobin A1c < 7 Result Component 5.9( 2:18 PM EDT) No Dellogono, Lopez, PharmMahin Record your blood sugar as directed Result Component No Ely Darling PharmD documented as of this encounter Visit Diagnoses Diagnosis Pain Generalized pain documented in this encounter Additional Health Concerns Assessment Noted Time PHQ-9 Depression Total Score: 25 024 12:17 PM EDT documented as of this encounter Care Teams Bucket Pusher Relationship Specialty Start Date End Date Daija Parry DO [address] [place] [address] PCP - General Family Medicine 12/22/14 Ely Darling PharmD [address] [place] [address] Pharmacist Internal Medicine 11/22/22 documented as of this encounter
--- OUTSIDE RECORDS SUMMARY | 2024-07-15 16:35 | XMS_ITS | Encounter Summary ---
Author Organization [employer] Address [address] [place] [address] 7 [place] [address] Care Team Providers Care Mail Distributor Name Role Phone Daija Parry DO Primary Care Provider +1- [phone] Ely Darling PharmD Unavailable Reason for Visit * Reason Comments Med Refill Encounter Details Date Type Department Care Team (Late st Contact Info) Description 07/12/2024 Refill [facility] MEDICINE [address] [place], [place] [phone] Daija Parry DO [address] [place], [place] [phone] Chronic low back pain, unspecified back pain laterality, unspecified whether sciatica present Social History Tobacco [...] the past 12 months, has t he [employer], gas, oil or water company threatened to [...] Description 07/29/2024 9:45 AM EDT Office Visit [facility] MEDICINE [address] [place] [address] 08/11/2024 10:15 AM EDT Office Visit [facility] MEDICINE [address] [place] [address] Daija Parry DO [address] [place] [address] 09/09/2024 3:30 PM EDT Office Visit [facility] OPTOMETRY [address] [place] [address] Yordan, Arielle, OD [address] [place] [address] documented as of this encounter Goals Goal Patient Goal Type Associated Problems Recent Progress Patient-Stated? Author Blood Pressure < 140/90 Blood Pressure 159/91(2023 12:14 PM EST) No Lopez Marroquin, PharmD Hemoglobin A1c < 7 Result Component 5.9(04/08/202 5 2:18 PM EDT) No Lopez Marroquin PharmD Record your blood sugar as directed Result Component No Ely Darling PharmD documented as of this encounter Visit Diagnoses Diagnosis Chronic low back pain, unspecified back pain laterality, unspecified whether sciatica present documented in this encounter Additional Health Concerns Assessment Noted Time PHQ-9 Depression Total Score: 22 025 3:28 PM EDT documented as of this encounter Care Teams Mail Distributor Relationship Specialty Start Date End Date Daija Parry DO [address] [place] [address] PCP - General Family Medicine 12/22/14 Ely Darling PharmD [address] [place] [address] Pharmacist Internal Medicine 11/22/22 documented as of this encounter
--- OUTSIDE RECORDS SUMMARY | 2024-07-15 16:35 | XMS_ITS | Encounter Summary ---
Author Organization [employer] Address [address] [place] [address] 7 [place] [address] Care Team Providers Care Exhaust Equipment Operator Name Role Phone Daija Parry DO Primary Care Provider +1- [phone] Ely Darling PharmD Unavailable Reason for Visit * Reason Onset Date Comments Med Refill 05/15/2024 Encounter Details Date Type Department Care Team (Late st Contact Info) Description 05/15/2024 Refill [facility] MEDICINE [address] [place], [place] [phone] Daija Parry DO [address] [place], [place] [phone] Pain Social History Tobacco Use Types Packs/Day [...] the past 12 months, has t he [employer], gas, oil or water company threatened to [...] Description 07/29/2024 9:45 AM EDT Office Visit [facility] MEDICINE [address] [place] [address] 08/11/2024 10:15 AM EDT Office Visit [facility] MEDICINE [address] [place] [address] Daija Parry DO [address] [place] [address] 09/09/2024 3:30 PM EDT Office Visit [facility] OPTOMETRY [address] [place] [address] Yordan, Arielle, OD [address] [place] [address] documented as of this encounter Goals Goal [...] documented as of this encounter Care Teams Exhaust Equipment Operator Relationship Specialty Start Date End Date Daija Parry DO [address] [place] [address] PCP - General Family Medicine 12/22/14 Ely Darling PharmD [address] [place] [address] Pharmacist Internal Medicine 11/22/22 documented as of this encounter
[2024-07-15 16:45] LABS: Creatinine Urine 205.32 mg/dL; Microalbum/Creatinine Ratio Ur 14.1 ug/mg cr (<30)
[2024-07-16 05:15] LABS: HBS Num1 > 1000.00 mIU/mL (0-7.99); HBsAGNum1 0.24 S/CO (0.00-0.99); HIV AB/AG Nonreactive (Nonreactive); HIV Num 1 0.09 S/CO (0.00-0.99); Hepatitis B Surface Antigen Negative (Negative); ~HepC Num1 0.17 S/CO (0.00-0.79); ~Hepatitis B Surface Antibody REACTIVE (Nonreactive); ~Hepatitis C Antibody Nonreactive (Nonreactive)
[2024-07-16 09:34] LABS: RPR Rapid Plasma Reagin NON-REACTIVE (NON-REACTIVE)
== END 2024-07-15 12:56 | disposition home or self-care (01) ==
LOC: HO.LAB 12:55
PROVIDERS: PCP Family Medicine; Visit Provider Family Medicine
DX: R06.09 Other forms of dyspnea (principal); F33.9 Major depressive disorder, recurrent, unspecified; G47.33 Obstructive sleep apnea (adult) (pediatric); R68.89 Other general symptoms and signs; Z13.6 Encounter for screening for cardiovascular disorders; N32.81 Overactive bladder; Z13.1 Encounter for screening for diabetes mellitus
CPT/HCPCS: 51798; 80048; 80061; 80076; 82043; 82306; 82570; 82607; 82728; 82746; 83036; 83540; 84439; 84443; 85027; 86592; 86706; 86803; 87340; 87389; 87491; 87591

== ENCOUNTER 2024-07-25 14:33 | Outpatient (AMB) | payer OTHER, SELFPAY ==
--- NOTE | 2024-07-25 14:45 | A.OFFVIS_ITS ---
Vital Signs 07/25/24 15:04 Height 5 ft 1 in Weight 275 lb BMI 52.0 BP 174/85 H Blood Pressure Location Lt brachial Position Sitting Pulse 80 Intake Visit Reasons: Follow up IBS Intake Note: Shereen presents in the office office as a follow up for IBS. CC: She states that she had one BM and has been having issues - she has pains in the lower quadrant of her abdomen and lots of diarrhea. She denies any blood in the BM. Lower and epigastric region pains. Kerrick Kleaner Operator Required: No Allergies cefuroxime [From CEFTIN] Allergy (Severe, Verified 07/25/24 14:47) HIVES HPI HPI Follow up IBS: Details: Assessment & Plan (1) Irritable bowel syndrome with diarrhea: Code(s): K58.0 - Irritable bowel syndrome with diarrhea Category: Medical (2) Gastroparesis: Code(s): K31.84 - Gastroparesis Category: Medical (3) Pancreatitis: Code(s): K85.90 - Acute pancreatitis without necrosis or infection, unspecified Category: Medical Plan She is doing generally well. Since the Lotronex 1 mg twice a day her bowel movements were normal except for 1 incidence of diarrhea where she had a fecal urgency and accident. This might be related to what she ate sometimes we just do not know but in general she is doing better. She has had some isolated incidents of severe nausea at night when she has taken extra Reglan. She has been tolerating the 20 mg 3 times a day dose well without any side effects. I think that we needed to give her a higher dose because of her body mass index. Will also give her an extra 20 mg she can take at night as needed. She continues to do well also on her other GI medications. Her total GI regimen consists of Lotronex 1 mg twice a day, famotidine 40 mg at night, Creon 2 caps twice a day, Reglan 20 mg 3 times a day and an extra 20 mg as needed at bedtime, pantoprazole 40 mg twice a day. Return office visit in 6 months Medications: Changed From metoclopramide HCl (Reglan) 20 mg (2 x 10 mg) PO TID 60 tabs 3RF K31.84 - Gastroparesis To metoclopramide HCl (Reglan) 20 mg (2 x 10 mg) PO QID 120 tabs 6RF K31.84 - Gastroparesis Refilled pantoprazole 40 mg PO BID 180 tabs 6RF K21.9 - Gastro-esophageal reflux disease without esophagitis vdkdck-kxbxhrvg-mbpihma 24,000-76,000 -120,000 unit (Creon) 2 caps PO QID 240 caps 6RF famotidine 40 mg PO DAILY 30 tabs 6RF loperamide 4 mg (2 x 2 mg) PO BID 120 caps 6RF R11.2 - Nausea with vomiting, unspecified alosetron 1 mg PO BID 60 tabs 6RF K58.0 - Irritable bowel syndrome with diarrhea TODAY'S VISIT She tells me that her brother was shot in [facility] and . ! This is very sad as she has already lost another brother prior to this. Since this loss her general stomach problems really increased. She is having more trouble with diarrhea and a lack of appetite. She is using imodium. She admits that her depression has been worse and she is very unmotivated to do anything. In the past her emotions really drove these sx, to it is reasonable to assume this is the case. She has used bentyl in the past and she asks to have thie refilled and I will provide this. She is having a lot of lower abd cramps. THis precedes her diarrhea. She used to be stable on Lotronex, but it seems to have dropped from her RX list - I will refill this as well. Her total GI regimen consists of Lotronex 1 mg twice a day, famotidine 40 mg at night, Creon 2 caps twice a day, Reglan 10 mg 3 times a day, pantoprazole 40 mg twice a day. ROV 3 mos. [facility] Medical History (Updated 07/25/24 @ 14:56 by JOANNE Vazquez) Epicondylitis, lateral Nocturnal hypoxemia Dyspnea Hemorrhoids Pulmonary arteriovenous malformation Morbid obesity with BMI of 50.0-59.9, adult Recent bereavement Depression Morning headache Daytime somnolence Diabetes Asthma Pre-op examination Family history of colon cancer Greater trochanteric bursitis of left hip Greater trochanteric bursitis of right hip Hirsutism Varicose veins with pain Restless leg syndrome Congenital pulmonary arteriovenous malformation Fungal infection of skin of abdomen Diabetes mellitus Urinary frequency Patellofemoral arthralgia of right knee Obstructive sleep apnea Hypothyroidism Hypertension Urinary retention Left forearm pain Interstitial cystitis Spinal stenosis of lumbar region Chronic pain syndrome Disc degeneration, lumbar Spondylosis, lumbar, with myelopathy Morbid obesity due to excess calories Arthritis Fibromyalgia Migraines Hypothyroid Restrictive lung disease Allergic rhinitis AISHWARYA on CPAP Nausea and vomiting GERD (gastroesophageal reflux disease) Surgical History Hx of spinal surgery Hx of cystoscopy Hx of colonoscopy History of esophagogastroduodenoscopy (EGD) Family History Father Alcoholism Mother Leukemia Maternal Aunt Breast cancer Sister Depression Vertigo Family/Other Heart problem Diabetes Cancer Brother Atherosclerotic cardiovascular disease Cardiomegaly Social History Household Members: Family Household Members Other:: Niece and great nieces and nephews Housing: Apartment Are you a primary career consultant to a significant other at home: No Do you presently have visiting nurse or other home services: No 75 years or older and lives alone: No Alcohol intake: never Comment: NONE Patient Tobacco Use Status: Never used Tobacco e-Cigarette/Vaping Use: Never Used Second Hand Smoke Exposure: No Substance Use Type: Marijuana service: No Current occupational status: disabled 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 Sexual orientation: Decline to Answer Review of Systems Const Denies fatigue, Denies fever(s), Denies night sweats, Reports poor appetite and Denies weight loss ENT Reports Normal hearing present, Denies dental pain, Denies dysphagia, Denies hearing loss, Denies mouth pain, Denies odynophagia, Denies throat swelling, Denies tongue swelling and Reports other (Dentition adequate) Card Reports no additional complaints Resp Reports no additional complaints GI Details: Denies abdominal pain, Denies melena, Denies bloating, Denies hematochezia, Denies constipation, Reports GI cramping, Denies dysphagia, Denies excessive flatus, Reports early satiety, Reports heartburn, Reports diarrhea, Reports nausea, Denies odynophagia, Denies vomiting and Denies hematemesis Skin/Breast Denies pruritus, Denies lesions, Denies rash and Denies jaundice Neuro Reports Normal hearing present and Denies Abnormal speech present Psych Reports anxiety, Reports change in appetite, Reports depression, Reports mood swings, Denies homicidal ideation and Denies suicidal ideation Endo Denies fatigue Aller/Immun Denies throat swelling and Denies tongue swelling Physical Exam Vital Signs: Last Vital Signs Pulse 80 07/25/24 15:04 BP 174/85 H 07/25/24 15:04 BMI result Body Mass Index 52.0 Const General: cooperative, no acute distress, well developed and well groomed Nutritional Appearance: well nourished and obese Orientation/consciousness: oriented to person, oriented to place and oriented to time Limitations: No language barrier HEENT Head: Yes normocephalic and Yes atraumatic Eyes General: appearance normal, both eyes and all related structures Pupils: Equal, round and reactive pupils present Neck Neck: Yes normal visual inspection and Yes no lymphadenopathy Thyroid: Thyroid normal Resp Effort & Inspection: normal respiratory effort and able to speak in complete sentences Auscultation: clear to auscultation bilaterally Cardio Rate: regular rate Rhythm: regular rhythm Heart sounds: Normal, physiologic split S2 sound present Peripheral pulses: radial pulses present and posterior tibial pulses present GI Inspection: No distended, Yes Abdominal panniculus present and Yes obesity Palpation (GI): Soft to palpation, nontender, no guarding, not rigid and No hepatosplenomegaly present Percussion: Yes normal to percussion Auscultation: normal bowel sounds Rectal Exam - Female: deferred Skin General skin exam: no rashes or lesions noted, turgor normal, skin not dry, no jaundice, No spider nevi and no striae Rashes: no rashes Nails: normal Neuro General: oriented to person, oriented to place and oriented to time Cranial nerves: Yes Equal, round and reactive pupils present and Yes Normal hearing present Speech: No Abnormal speech present Extrem General: Yes normal to inspection, No clubbing, No cyanosis and No edema Psych Appearance: grossly normal and well kempt Mental Status: mental status grossly normal Speech and movement: Normal speech and movement present Affect: normal affect Attitude: cooperative Thought process: Normal thought process present and not confabulating Thought content: Normal thought content present Insight: Fair insight present (Psych) Judgement: Fair judgement present (Psych) Assessment & Plan Assessment & Plan (1) Irritable bowel syndrome with diarrhea: Code(s): K58.0 - Irritable bowel syndrome with diarrhea Category: Medical (2) Gastroparesis: Code(s): K31.84 - Gastroparesis Category: Medical (3) Tubular adenoma of colon: Comment: 2023 scope= poor prep in 1-2 years Code(s): D12.6 - Benign neoplasm of colon, unspecified Category: Medical (4) Pancreatitis: Code(s): K85.90 - Acute pancreatitis without necrosis or infection, unspecified Category: Medical Plan She tells me that her brother was shot in [facility] and . ! This is very sad as she has already lost another brother prior to this. Since this loss her general stomach problems really increased. She is having more trouble with diarrhea and a lack of appetite. She is using imodium. She admits that her depression has been worse and she is very unmotivated to do anything. In the past her emotions really drove these sx, to it is reasonable to assume this is the case. She has used bentyl in the past and she asks to have thie refilled and I will provide this. She is having a lot of lower abd cramps. This precedes her diarrhea. She used to be stable on Lotronex, but it seems to have dropped from her RX list - I will refill this as well. Her total GI regimen consists of Lotronex 1 mg twice a day, famotidine 40 mg at night, Creon 2 caps twice a day, Reglan 10 mg 3 times a day, pantoprazole 40 mg twice a day. ROV 3 mos Medications: New aslmoq-osscaqcn-iycmrgx 24,000-76,000 -120,000 unit (Creon) 2 caps PO QID 240 caps 6RF alosetron (Lotronex) 1 mg PO BID 60 tabs 6RF K58.0 - Irritable bowel syndrome with diarrhea pantoprazole 40 mg PO .qamac 30 tabs 6RF dicyclomine 20 mg PO QID 30 days 120 tabs 6RF K58.0 - Irritable bowel syndrome with diarrhea Changed From loperamide 8 mg (4 x 2 mg) PO DAILY PRN 0 caps 0RF Loose Stool K58.0 - Irritable bowel syndrome with diarrhea To loperamide 2 mg PO Q8H PRN 90 caps 6RF Loose Stool K58.0 - Irritable bowel syndrome with diarrhea Refilled metoclopramide HCl 10 mg PO TIDAC 90 days 270 tabs 0RF Discontinued paroxetine HCl Discontinued Reason: Duplicate 30 mg PO DAILY 30 days 30 tabs 0RF Coding Level of Care Code Est Pt Level 3 (74355) Diagnoses Irritable bowel syndrome with diarrhea K58.0 Gastroparesis K31.84 Tubular adenoma of colon D12.6 Pancreatitis K85.90
--- OUTSIDE RECORDS SUMMARY | 2024-07-25 14:48 | XMS_ITS | Encounter Summary ---
Author Organization [employer] Address [address] [place] [address] 7 [place] [address] Care Team Providers Care Landcare Officer Name Role Phone Daija Parry DO Primary Care Provider [phone] Ely Darling PharmD Unavailable Reason for Visit * Reason Onset Date Comments Results 07/25/2024 Encounter Details Date Type Department Care Team (Late st Contact Info) Description 07/25/2024 Refill [facility] MEDICINE [address] [place] [address] Daija Parry DO [address] [place], [place] [phone] Social History Tobacco Use Types Packs/Day Years [...] encounter Miscellaneous Notes * Addendum Note - Lulu Medrano RN - 07/25/2024 1:25 PM EDTAddended by: LULU MEDRANO on: 07/25/2024 01:25 PM Modules accepted: Orders * Telephone Encounter - Lulu Medrano RN - 07/25/2024 1:21 PM EDT TC placed to patient [phone] in regards to below message. Patient verbalized understanding benito she is not compliant with her levothyroxine medication. Patient reports she forgets to takeher dose approx 1-2 times a week. Patient advised on importance of taking medication DAILY without skipping any doses and was educated on how medication should be taken. Patient reports she will try to be more compliant. Patient also advised of weekly vitamin D RX which will be sent to the pharmacyand informed it is WEEKLY not daily. Patient did not have any further questions. Patient to f/u PRN. * Telephone Encounter - Cierra Pedersen - 07/25/2024 1:08 PM EDT Tc from pt returning phone call. * Telephone Encounter - Lulu Medrano RN - 07/25/2024 11:53 AM EDT RN reviewed BW results with PCP. BW results returned showing low vitamin D (needs weekly RX) and elevated TSH. Provider will send weekly vitamin D to the pharmacy. PCP would like RN to inquire if patient is compliant with levothyroxine medication (275mcg every AM). If patient is compliant with medic ation, PCP will increase to 300mcg. TC placed to patient [phone] however no answer, RN left requesting CB to red team nurses. TC placed to [phone] however number is OOS. RN will re- attempt in PM. documented in this encounter Plan of Treatment Upcoming Encounters Date Type Department Care Team (Late st Contact Info) Description 07/29/2024 9:45 AM EDT Office Visit [facility] MEDICINE [address] [place] [address] 08/11/2024 10:15 AM EDT Office Visit [facility] MEDICINE [address] [place] [address] Daija Parry DO [address] [place] [address] 09/09/2024 3:30 PM EDT Office Visit [facility] OPTOMETRY [address] [place] [address] Arielle Farr, OD [address] [place] [address] documented as of this encounter Goals Goal Patient Goal Type Associated Problems Recent Progress Patient-Stated? Author Blood Pressure < 140/90 Blood Pressure 159/91(2023 12:14 PM EST) No Lopez Marroquin, PharmMahin Hemoglobin A1c < 7 Result Component 5.9( 5 2:18 PM EDT) No Lopez Marroquin PharmMahin Record your blood sugar as directed Result Component No Ely Darling PharmD documented as of this encounter Visit Diagnoses Not on filedocumented in this encounter Additional Health Concerns Assessment Noted Time PHQ-9 Depression Total Score: 22 025 3:28 PM EDT documented as of this encounter Care Teams Landcare Officer Relationship Specialty Start Date End Date Daija Parry DO [address] [place] [address] PCP - General Family Medicine 12/22/14 Ely Darling PharmD [address] [place] [address] Pharmacist Internal Medicine 11/22/22 documented as of this encounter
--- OUTSIDE RECORDS SUMMARY | 2024-07-25 14:48 | XMS_ITS | Encounter Summary ---
Author Organization [employer] Address [address] [place] [address] 7t [place] [address] Care Team Providers Care Flame Cutting Supervisor Name Role Phone Brinda Daija ROBLES Primary Care Provider [phone] Ely Darling PharmD Unavailable Reason for Visit * Reason Comments Med Refill Encounter Details Date Type Department Care Team ([facility] st Contact Info) Description 01/24/2023 Refill [facility] MEDICINE [address] [place] [address] Daphney Roca MD [address] [place] [address] Social History Tobacco Use Types Packs/Day Years [...] Description 07/29/2024 9:45 AM EDT Office Visit [facility] MEDICINE [address] [place] [address] 08/11/2024 10:15 AM EDT Office Visit [facility] MEDICINE [address] [place] [address] Daija Parry, [address] [place] [address] 09/09/2024 3:30 PM EDT Office Visit [facility] OPTOMETRY [address] [place] [address] Yordan, Arielle, OD [address] [place] [address] documented as of this encounter Goals Goal [...] documented as of this encounter Care Teams Flame Cutting Supervisor Relationship Specialty Start Date End Date Daija Parry DO [address] [place], [place] [phone] PCP - General Family Medicine 12/22/14 Ely Darling PharmD [address] [place] [address] Pharmacist Internal Medicine 11/22/22 documented as of this encounter
--- OUTSIDE RECORDS SUMMARY | 2024-07-25 14:48 | XMS_ITS | Encounter Summary ---
Author Organization [facility] Address [address] [place] [address] 7t [place] [address] Care Team Providers Care Canine Enforcement Officer Name Role Phone Daija Parry DO Primary Care Provider DelLopez moreno PharmD Unavailable Unavail able Ely Darling PharmD Unavailable Reason for Visit * Reason Onset Date Comments Med Refill 06/12/2022 Encounter Details Date Type Department Care Team (Late st Contact Info) Description 06/12/2022 Refill [facility] MEDICINE [address] [place], [place] [phone] Daija Parry DO [address] [place], [place] [phone] Generalized anxiety disorder (Primary Dx) Social History [...] (Ambien) 10 MG tablet Please sent to [facility] - [place], [place] - [address] [place] [address] documented in this encounter Plan of Treatment Upcoming Encounters Date Type Department Care Team (Late st Contact Info) Description 07/29/2024 9:45 AM EDT Office Visit [facility] MEDICINE [address] [place] [address] 08/11/2024 10:15 AM EDT Office Visit [facility] MEDICINE [address] [place] [address] Daija Parry DO [address] [place] [address] 09/09/2024 3:30 PM EDT Office Visit [facility] OPTOMETRY [address] [place] [address] Yordan, Arielle, OD [address] [place] [address] documented as of this encounter Visit Diagnoses Diagnosis Generalized anxiety disorder- Primary documented in this encounter Additional Health Concerns Assessment Noted Time PHQ-9 Depression Total Score: 24 05/26/ 023 11:12 AM EST documented as of this encounter Care Teams Canine Enforcement Officer Relationship Specialty Start Date End Date Daija Parry DO [address] [place] [address] PCP - General Family Medicine 12/22/14 Lopez Marroquin, PharmD [address] [place] [address] Pharmacist Internal Medicine 06/25/22 11/22/22 Ely Darling, AugustoD [address] [place] [address] Pharmacist Internal Medicine 11/22/22 documented as of this encounter
--- OUTSIDE RECORDS SUMMARY | 2024-07-25 14:48 | XMS_ITS | Encounter Summary ---
Author Organization [employer] Address [address] [place] [address] 7t [place] [address] Care Team Providers Care Sterilisation Technician Name Role Phone Daija Parry DO Primary Care Provider [phone] Ely Darling PharmD Unavailable [phone] Reason for Visit * Reason Onset Date Comments Appointment Request 04/03/2023 Encounter Details Date Type Department Care Team ([facility] st Contact Info) Description 04/03/2023 Telephone [facility] MEDICINE [address] [place], [place] [phone] Daija Parry DO [address] [place], [place] [phone] Appointment Request Social History Tobacco Use Types [...] seen for headaches due to CPAP machine fiction writer did offer to triage this call patient refused due to being out of town and is returning on 04/21/2023 documented in this encounter Plan of Treatment Upcoming Encounters Date Type Department Care Team (Late st Contact Info) Description 07/29/2024 9:45 AM EDT Office Visit [facility] MEDICINE [address] [place] [address] 08/11/2024 10:15 AM EDT Office Visit [facility] MEDICINE [address] [place] [address] Daija Parry DO [address] [place] [address] 09/09/2024 3:30 PM EDT Office Visit [facility] OPTOMETRY [address] [place] [address] Arielle Farr, OD [address] [place] [address] documented as of this encounter Goals Goal Patient Goal Type Associated Problems Recent Progress Patient-Stated? Author Blood Pressure < 140/90 Blood Pressure 159/91(2023 12:14 PM EST) No Lopez Marrouqin, PharmMahin Hemoglobin A1c < 7 Result Component 5.9( 2:18 PM EDT) No Lopez Marroquin PharmMahin Record your blood sugar as directed Result Component No Ely Darling PharmD documented as of this encounter Visit Diagnoses Not on filedocumented in this encounter Additional Health Concerns Assessment Noted Time PHQ-9 Depression Total Score: 24 023 8:59 AM EDT documented as of this encounter Care Teams Sterilisation Technician Relationship Specialty Start Date End Date Daija Parry DO [address] [place] [address] PCP - General Family Medicine 12/22/14 Ely Darling PharmD [address] [place] [address] Pharmacist Internal Medicine 11/22/22 documented as of this encounter
--- OUTSIDE RECORDS SUMMARY | 2024-07-25 14:48 | XMS_ITS | Encounter Summary ---
Author Organization [employer] Address [address] [place] [address] 7[address] [place] [address] Care Team Providers Care Production Recovery Operator Name Role Phone Daija Parry DO Primary Care Provider [phone]- [phone] Ely Darling PharmD Unavailable [phone] Reason for Visit * Reason Onset Date Comments Med Refill 08/29/2023 Encounter Details Date Type Department Care Team (Late st Contact Info) Description 08/29/2023 Refill [facility] [address] [place] [address] Daija Parry DO [address] [place] [address] Chronic bilateral low back pain, unspecified whether [...] the past 12 months, has t he [employer] gas, oil or water [employer] threatened to shut off services in your [...] 9:45 AM EDT Office Visit [facility] [address] [place] [address] 08/11/2024 10:15 AM EDT Office Visit [facility] [address] [place] [address] Daija Parry DO [address] [place] [address] 09/09/2024 3:30 PM EDT Office Visit [facility] [address] [place], [place] [phone] Arielle Farr, OD [address] [place] [address] documented as of this encounter Goals Goal [...] documented as of this encounter Care Teams Production Recovery Operator Relationship Specialty Start Date End Date Daija Parry DO [address] [place] [address] PCP - General Family Medicine 12/22/14 Ely Darling PharmD [address] [place] [phone] Pharmacist Internal Medicine 11/22/22 documented as of this encounter
--- OUTSIDE RECORDS SUMMARY | 2024-07-25 14:48 | XMS_ITS | Encounter Summary ---
Author Organization [facility] [facility] Address [address] [place] [address] [address] [address] Care Team Providers Care Waste Baler Name Role Phone Daija Parry DO Primary Care Provider [phone]- [phone] Ely Darling PharmD Unavailable Reason for Visit * Reason Comments Med Refill Encounter Details Date Type Department Care Team (Late st Contact Info) Description 01/01/2023 Refill [facility] [address] [place] [address] Daija Parry DO [address] [place], [place] [phone] Social History Tobacco Use Types Packs/Day Years [...] EDT Office Visit [facility] [address] [place] [address] [phone] 08/11/2024 10:15 AM EDT Office Visit [facility] [address] [place] [address] Daija Paryr DO [address] [place] [address] 09/09/2024 3:30 PM EDT Office Visit [facility] [address] [place], [place] [phone] YordanArielle bernard, OD [address] [place] [address] documented as of this encounter Goals Goal [...] documented as of this encounter Care Teams Waste Baler Relationship Specialty Start Date End Date Diaja Parry DO [address] [place] [address] PCP - General Family Medicine 12/22/14 Ely Darling, PharmD [address] [place] [address] Pharmacist Internal Medicine 11/22/22 documented as of this encounter
--- OUTSIDE RECORDS SUMMARY | 2024-07-25 14:48 | XMS_ITS | Encounter Summary ---
Author Organization [employer] Address [address] [place] [address] 7 [place] [address] Care Team Providers Care Ball Machine Operator Name Role Phone Daija Parry DO Primary Care Provider [phone]- [phone] Ely Darling PharmD Unavailable [phone] Reason for Visit * Reason Comments Med Refill Encounter Details Date Type Department Care Team (Late st Contact Info) Description 07/25/2024 Refill [facility] [address] [place] [address] Daija Parry DO [address] [place], [place] [phone] Hypothyroidism, unspecified type; Essential hypertension Social History Tobacco Use Types [...] with others, in a hotel, in a alf, living outside on the street, on a [...] the past 12 months, has t he [employer], gas, oil or water company threatened to [...] 07/29/2024 9:45 AM EDT Office Visit [facility] [address] [place] [address] 08/11/2024 10:15 AM EDT Office Visit [facility] [address] [place] [address] Daija Parry DO [address] [place] [address] 09/09/2024 3:30 PM EDT Office Visit [facility] OPTOMETRY [address] [place] [address] Yordan, Arielle, OD [address] [place] [address] documented as of this encounter Goals Goal [...] encounter Visit Diagnoses Diagnosis Hypothyroidism, unspecified type Essential hypertension Unspecified essential hypertension documented in this encounter Additional Health Concerns Assessment Noted Time PHQ-9 Depression Total Score: 22 07/10/ 025 3:28 PM EDT documented as of this encounter Care Teams Ball Machine Operator Relationship Specialty Start Date End Date Daija Parry DO [address] [place] [address] PCP - General Family Medicine 12/22/14 Ely Darling PharmD [address] [place] [address] Pharmacist Internal Medicine 11/22/22 documented as of this encounter
--- OUTSIDE RECORDS SUMMARY | 2024-07-25 14:48 | XMS_ITS | Encounter Summary ---
Author Organization [employer] Address [address] [place] [address] 7[address] [place] [address] Care Team Providers Care Obstetrics Tech Name Role Phone Daija Parry DO Primary Care Provider [phone]- [phone] Ely Darling PharmD Unavailable Reason for Visit * Reason Onset Date Comments Med Refill 09/09/2023 Encounter Details Date Type Department Care Team (Late st Contact Info) Description 09/09/2023 Refill [facility] [address] [place] [address] Daija Parry DO [address] [place] [address] Chronic bilateral low back pain, unspecified whether [...] with others, in a hotel, in a [facility], living outside on the street, on a [...] the past 12 months, has t he [employer], gas, oil or water [employer] threatened to shut off services in your [...] 9:45 AM EDT Office Visit [facility] [address] [place] [address] 08/11/2024 10:15 AM EDT Office Visit [facility] [address] [place] [address] Daija Parry DO [address] [place] [address] 09/09/2024 3:30 PM EDT Office Visit [facility] OPTOMETRY [address] [place], [place] [phone] Arielle Farr, OD [address] [place] [address] documented as of this encounter Goals Goal [...] documented as of this encounter Care Teams Obstetrics Tech Relationship Specialty Start Date End Date Daija Parry DO [address] [place] [address] PCP - General Family Medicine 12/22/14 Ely Darling PharmD [address] [place] [phone] Pharmacist Internal Medicine 11/22/22 documented as of this encounter
--- OUTSIDE RECORDS SUMMARY | 2024-07-25 14:48 | XMS_ITS | Clinical Summary ---
Author Organization [employer] Address [address] [facility] [address] [place] [address] Care Team Providers Care Band Booker Name Role Phone Brinda Daija Primary Care Provider Ely Darling PharmD Unavailable [phone] Allergies Active Allergy Reactions Criticality Noted Date Comments Cefuroxime Hives High 07/15/2015 Medications * This document contains information received from the source organization and may not represent a complete record from that organization. pantoprazole (ProtoNix) 40 MG EC tablet Take 1 tablet by mouth 2 times daily. Active pancrelipase, Kuk-Gixm-Vsdj, (Creon) 74105-24859 units capsule Take 2 capsules by mouth [...] anxiety. Active ergocalciferol (Vitamin D2) 1.25 MG (99431 UT) capsuleIndicati ons:Vitamin D deficiency Take 1 capsule (1.25 mg) by mouth 1 (one) time per week. 5 capsule 3 Active alosetron (Lotronex) 1 MG tablet Take 1 mg by mouth 2 times daily. Active Alcohol Swabs (Alcohol Prep) padsIndications :Type 2 diabetes mellitus without complication, without long-term current use of insulin ([facility]) Use one pad BID when checking blood glucose 100 each Active empagliflozin (Jardiance) 10 MGIndications:T ype 2 diabetes mellitus without complication, without long-term current use of insulin ([facility]) Take 1 tablet (10 mg) by mouth Once per day. 30 tablet 024 2024 Active glucose blood (FREESTYLE LITE) test stripIndication s:Type 2 diabetes mellitus without complication, without long-term current use of insulin ([facility]) Use to monitor blood glucose twice daily 100 each Active TRUEplus Lancets 33G miscIndications :Type 2 diabetes mellitus without complication, without long-term current use of insulin ([facility]) Use to test blood sugar 2 time(s) daily 100 each Active Blood Glucose Monitoring Suppl (FreeStyle Vance Lite) w/Device kit Use to test blood [...] NEEDED FOR NAUSEA AND VOMITING Active Nystop 108862 UNIT/GM powder APPLY TOPICALLY TO THE AFFECTED [...] FOOD NEEDED FOR PAIN 60 tablet 2 Active Trulicity 0.75 MG/0.5ML solution auto-injectorIn dications:Type 2 diabetes mellitus without complication, without long-term current use of insulin ([facility]) INJECT ONE PEN (=0.75MG) SUBCUTANEOUSLY ONCE A WEEK DIRECTED 2 mL Active losartan (Cozaar) 100 MG tabletIndicatio ns:Essential hypertension TAKE 1 TABLET BY MOUTH EVERY EVENING 90 tablet Active acetaminophen (Tylenol 8 Hour) 650 MG ER tabletIndicatio ns:Pain TAKE 1 TABLET BY MOUTH EVERY 6 HOURS NEEDED FOR PAIN OR FEVER 100 tablet Active levothyroxine (Synthroid, Levoxyl) 200 MCG tabletIndicatio ns:Hypothyroidi sm, unspecified type TAKE 1 TABLET BY MOUTH EVERY MORNING BEFORE BREAKFAST 90 tablet Active gabapentin (Neurontin) 400 MG capsule TAKE 1 CAPSULE BY MOUTH THREE TIMES DAILY IN THE MORNING, EVENING, AND BEDTIME 90 capsule Active D3 Super Strength 50 MCG (1999 UT) capsuleIndicati ons:Vitamin D deficiency TAKE 1 CAPSULE BY MOUTH EVERY MORNING 30 capsule Active Diclofenac Sodium 1 % gelIndications: Chronic low back pain, unspecified back pain laterality, unspecified whether sciatica present Apply 2 g topically if needed in the morning, at noon, in the evening, and at bedtime (pain). 150 g Active fluticasone furoate (Arnuity Ellipta) 200 MCG/ACT inhaler INHALE 1 PUFF BY MOUTH EVERY DAY AT THE SAME TIME RINSE MOUTH AFTER USING 30 each Active furosemide (Lasix) 20 MG tablet TAKE 1 TABLET BY MOUTH EVERY DAY NEEDED FOR SWELLING 30 tablet Active traMADol (Ultram) 50 MG tabletIndicatio ns:Chronic bilateral low back pain with bilateral sciatica Take 1 tablet (50 mg) by mouth every 6 (six) hours if needed for severe pain for up to 28 days. 112 tablet 025 2024 Active ergocalciferol (Vitamin D2) 1.25 MG ( UT) capsule Take 1 capsule (1.25 mg) by mouth 1 (one) time per week. 12 capsule 025 2024 Active cholecalciferol (Vitamin D-3) 50 MCG (1999 UT) capsuleIndicati ons:Vitamin D deficiency Take 1 capsule (50 mcg) by mouth Once per day. 30 capsule 11 024 2024 Discontinued Diclofenac Sodium 1 % gelIndications: Chronic low back pain, unspecified back pain laterality, unspecified whether sciatica present APPLY 2 GRAMS TOPICALLY TO AFFECTED AREA(S) TWICE DAILY 100 g 3 024 2024 Discontinued fluticasone furoate (Arnuity Ellipta) 200 MCG/ACT inhaler INHALE 1 PUFF BY MOUTH EVERY DAY. RINSE MOUTH AFTER USING. 30 each 2 025 2024 Discontinued furosemide (Lasix) 20 MG tablet TAKE 1 TABLET BY MOUTH EVERY DAY NEEDED SWELLING 30 tablet 2 2024 Discontinued traMADol (Ultram) 50 MG tabletIndicatio ns:Chronic bilateral low back pain with bilateral sciatica Take 1 tablet (50 mg) by mouth every 6 (six) hours if needed for severe pain for up to 28 days. 112 tablet 025 2024 Discontinued(R eorder (will not trigger notification to Pharmacy)) Active Problems Problem Noted Date Diagnosed Date Bereavement 07/10/2024 Long-term current use of opiate analgesic 2024 Overview (06/03/2024): Medication: Tramadol 50mg Q6H PRN Indication: lumbar spondylosis with myelopathy Last ANALYTICS DEVELOPER Agreement: 03/04/24 Adjustment disorder with mixed anxiety [...] main strength. Pt currently has services with [facility] for psychiatry and is also in wait list for OP individual therapy. clinician engaged patient with active/reflective listening. Reviewed and assessed for risk, current stressors and protective factors using open-ended questions. clinician will provide follow-up BE for additional support. Provided [facility] contact information. Chronic, continuous use of opioids 01/01/2024 Overview (03/04/2024): Dx: Chronic Back Pain with Sciatica Rx: Tramadol 50mg Q6 hours Tier 2, visits every 3 months ANALYTICS DEVELOPER Agreement signed: 03/04/24 Additional considerations: Restrictive lung [...] organization. Date Type Department Care Team Description 07/25/2024 Refill [facility] [address] [place] [address] Daija Parry DO 07/25/2024 Refill [facility] [address] [place] [address] Daija Parry DO Hypothyroidism, unspecified type; Essential hypertension 07/21/[address] [facility] [address] [place] [address] Daija Parry DO Chronic bilateral low back pain with bilateral sciatica 07/17/[address] [facility] [address] [place] [address] Daija Parry DO 07/12/2024 Refill [facility] [address] [place] [address] Daija Parry DO Chronic low back pain, unspecified back pain laterality, unspecified whether sciatica present 07/10/2024 Travel 07/03/2024 Telephone [facility] [address] [place] [address] Daija Parry DO DME from [facility] 06/30/2024 Orders Only GENERIC EXTERNAL DATA DEPARTMENT Provider, Generic External Data 06/30/2024 Refill [facility] [address] [place] [address] Daija Parry DO Vitamin D deficiency 06/21/2024 Refill [facility] [address] [place] [address] Daija Parry, 06/19/[address] [facility] [address] [place] [address] Daija Parry, Chronic bilateral low back pain with bilateral sciatica 06/06/2024 Telephone [facility] [address] [place] [address] Daija Parry, 06/05/2024 Telephone [facility] [address] [place] [address] Daija Parry DO Recall Appt. 06/05/2024 Travel 06/03/2024 9:45 AM EST Office Visit [facility] [address] [place] [phone] Phalen, Chloé, DESIGN DIRECTOR Spondylosis, lumbar, with myelopathy (Primary Dx); Long-term current use of opiate analgesic 06/03/2024 Travel 05/15/2024 Refill [facility] [address] [place] [address] Daija Parry DO Chronic bilateral low back pain with bilateral sciatica 05/15/2024 Refill [facility] [address] [place] [address] Daija Parry, Pain 05/08/2024 Refill [facility] [address] [place] [address] Daija Parry DO Hypothyroidism, unspecified type 05/05/2024 Refill [facility] [address] [place] [address] Daija Parry, Pain 05/03/2024 Refill [facility] [address] [place] [address] Daija Parry DO 05/02/2024 Telephone [facility] [address] [place] [address] Daija Parry DO Nurse Triage 05/01/2024 Telephone [facility] [address] [place] [address] Daija Parry DO Appointment Request 05/01/2024 Refill [facility] [address] [place] [address] Daija Parry DO Essential hypertension 04/29/2024 Refill [facility] [address] [place], [place] [phone] Daija Parry, Type 2 diabetes mellitus without complication, without long-term current use of insulin ([facility]) from Last 3 Months Immunizations Name Administration [...] 05/11/2021,07/14/19 21,06/15/2020 Pfizer Covid-19 Vaccine 12+ 02/11/2024, 4 Pfizer Covid-19 Vaccine 12+ Bivalent 03/09/2022 Pneumococcal [...] with others, in a hotel, in a detention, living outside on the street, on a [...] 9:45 AM EDT Office Visit [facility] [address] [place] [address] 08/11/2024 10:15 AM EDT Office Visit [facility] [address] [place] [address] Daija Parry, [address] [place] [address] 09/09/2024 3:30 PM EDT Office Visit [facility] [address] [place] [address] Yordan, Arielle, OD [address] [place] [address] Health Maintenance Due Date Last Done Comments [...] 11/22/2020 Dental X-Ray: Bitewings 05/15/2024 05/14/2023, 07/14 SDOH Screening 07/11/2024 07/12/2023 DTaP/Tdap/Td Vaccines (8 - Td or Tdap) 09/22/2024 09/22/2014, 02/06/2012, 05/23/1995, Additional history exists Eye Exam 01/08/2025 01/08/2023, 05/2022, 01/08/2023, Additional history exists Depression Monitoring 01/09/2025 07/10/2024, 025 Diabetes: Hemoglobin A1C 01/14/2025 025, 12/11/2023, 08/01/2023, Additional history exists Mammogram 02/13/2025 02/14/2024, 10/08, 10/29/2020, Additional history exists Tobacco Screening 03/04/2025 03/04/2024 Depression Screening 07/10/2025 07/10/2024, 07/11/19 Diabetes: Urine Protein Screening 07/15/2025 07/15/2024, 07/12/2023, 05/03/2023, Additional history exists Lipid Panel 07/15/2025 07/15/2024, 07/09, 05/03/2023, Additional history exists Dental X-Ray: Full Mouth 05/15/2026 024, 08/18/2016, 07/15/2015 RSV Patients and Patients Aged 60 years or older (1 - 1-dose 75+ series) 2048 IPV Vaccines Completed 04/25/1988, 09/07, 11/24/1975, Additional history exists Pneumococcal Vaccine: 50+ Years Completed 04/30/2023, 08/23/2015, 09/22/2014, Additional history exists Hepatitis B Vaccines Completed 12/11/2023, 05/16/2004, 01/07/2004, Additional history exists COVID-19 Vaccine Completed 02/11/2024, , 03/09/2022, Additional history exists Influenza Vaccine Completed 02/11/2024, , 01/20/2022, Additional history exists HIV Screening Completed 07/15/2024, 06/07, 11/24/2020, Additional history exists Hepatitis C Screening Completed 07/15/2024 , 06/22/2021, 11/24/2020, Additional history exists HIB Vaccines Aged Out [...] Diagnosis Comments ALBUMIN, RANDOM URINE W/CREATININE Routine 07/15/2024 3:00 PM EDT Fatigue, unspecified type BOUDREAUX (dyspnea on exertion) Major depression, recurrent, chronic (CMS/HCC) AISHWARYA (obstructive sleep apnea) FERRITIN Routine 07/15/2024 2:18 PM EDT Fatigue, [...] recurrent, chronic (CMS/HCC) AISHWARYA (obstructive sleep apnea) HEPATITIS B SURFACE ANTIBODY, QUALITATIVE Routine 07/15/2024 2:18 PM EDT Fatigue, unspecified type BOUDREAUX (dyspnea on exertion) Major depression, recurrent, chronic (CMS/HCC) AISHWARYA (obstructive sleep apnea) HEPATITIS C AB W/REFL TO HCV RNA, QN, PCR Routine 07/15/2024 2:18 PM EDT Fatigue, unspecified type BOUDREAUX (dyspnea on exertion) Major depression, recurrent, chronic (CMS/HCC) AISHWARYA (obstructive sleep apnea) HIV 1/2 ANTIGEN/ANTIBODY, FOURTH GENERATION W/RFL Routine 07/15/2024 2:18 PM EDT Fatigue, unspecified type BOUDREAUX (dyspnea on exertion) Major depression, recurrent, chronic (CMS/HCC) AISHWARYA (obstructive sleep apnea) HEPATITIS B SURFACE ANTIGEN, EIA Routine 07/15/2024 2:18 PM EDT Fatigue, unspecified [...] recurrent, chronic (CMS/HCC) AISHWARYA (obstructive sleep apnea) RPR (MONITOR) W/REFL TITER Routine 07/15/2024 2:18 PM EDT Forgetfulness TSH Routine 07/15/2024 2:18 PM EDT Forgetfulness [...] screening mammogram for malignant neoplasm of breast PROPHYLAXIS - ADULT Routine 05/14/2023 2 :00 [...] ESTABLISHED PATIENT Routine 05/14/2023 2:00 PM EST THINPREP IMAGING SYSTEM PAP Routine 11/24/2020 6:42 AM EDT HM COLONOSCOPY Routine 08/15/2012 8:08 AM EDT from Last 3 Months or Most Recently Relevant to Health Maintenance Results * Albumin, Random Urine W/Creatinine (07/15/2024 3:00 PM EDT) Creatinine, Urine 205.32 mg/dL [facility] Microalbumin Urine 29.0 mg/L [facility] Microalbum Creatinine Ratio Ur 14.1 <30 ug/mg cr [facility] Comment:Albumin/Creatinine R atio Reference Ranges: Normal: < 30 ug/mg creatinine Microalbuminuria: 30 - 300 ug/mg creatinineClinical Albuminuria: > 300 ug/mg creatinine Urine (Urine, Random) 07/15/2024 3:00 PM EDT 07/15/2024 4:11 PM EDT us Daija Parry DO LAB URINE ORDERABLES Final R esult [facility] [address] [place] [phone] * (ABNORMAL) Vitamin D, 25-Hydroxy, Total, Immunoassay (07/15/2024 2:18 PM EDT) Vitamin D 25-OH Total 11.1(L) >30 ng/mL [facility] Comment: Health Based Reference Values*< 20 ??ng/mL ??[id number] ng/mL ??Insufficient> 30 ??ng/mL ??Sufficient*Holick MF. N Engl J Med. 2007;[id number]:266-280There is no [...] DO LAB BLOOD ORDERABLES Final R esult [facility] [address] [place] [address] [phone] * Vitamin B12 (Cobalamin) and Folate Panel, Serum (07/15/2024 2:18 PM EDT) Vitamin B12 242 200 - 900 pg/mL [facility] Comment:NORMAL 200-900 PG/ML INDETERMINATE 160-199 PG/ML DEFICIENT < 160 PG/ML Folate 6.0 > or = 4.0 ng/mL [facility] Comment:Reference Values:> o r = 4.0 ng/mL< 4.0 ng/mL suggests folate deficiency Methotrexate, aminopterin and folinic acid(leucovorin) are chemotherapeutic agents whose molecularstructures are similar to folate; therefore, the Architectfolate assay cannot be used for patients using these drugs. Blood Venous blood specimen / Unknown 07/15/2024 2:18 PM EDT 07/15/2024 2:18 PM EDT Daija Brinda LAB BLOOD ORDERABLES Final R esult Performing Organization Address City/[facility] Co de Phone Number [facility] [address] [place] [phone] * Hepatitis C Antibody with Reflex to HCV, RNA, Quantitative, Real-Time PCR (07/15/2024 2:18 PM EDT) [facility] Hepatitis C Antibody Nonreactive Nonreactive [facility] Comment:Antibodies to HCV no t detected; does not exclude early acuteHCV infection. Blood Venous blood specimen / Unknown 07/15/2024 2:18 PM EDT 07/15/2024 2:18 PM EDT Daija Parry LAB BLOOD ORDERABLES Final R esult Performing Organization Address [facility] Co de Phone Number [facility] [address] [place] [phone] * Iron And Total Iron Binding Capacity (07/15/2024 2:18 PM EDT) [facility] Iron 68 30 - 160 mcg/dL [facility] Total Iron Binding Capacity 262 228 - 428 mcg/dL [facility] Percent Iron Saturation 26 15 - 50 % [facility] Unsaturated Iron Binding 194 ug/dL [facility] Blood Venous blood specimen / Unknown 07/15/2024 2:18 PM EDT 07/15/2024 2:18 PM EDT Daija Brinda LAB BLOOD ORDERABLES Final R esult Performing Organization Address City/[facility]/ZIP Co de Phone Number [facility] [address] [place] [phone] * Hepatitis B surface antigen, EIA (07/15/2024 2:18 PM EDT) Pathologist [facility] Hepatitis B Surface Ag Negative Negative [facility] Blood Venous blood specimen / Unknown 07/15/2024 2:18 PM EDT 07/15/2024 2:18 PM EDT Daija Brinda DO LAB BLOOD ORDERABLES Final R esult Performing Organization Address [facility]/ZIP Co de Phone Number [facility] [address] [place] [phone] * RPR (Monitor) with Reflex to??Titer (07/15/2024 2:18 PM EDT) Pathologist [facility] RPR (Monitor) w/Refl Titer NON-REACTI VE NON-REACT MARISA [facility] Comment:THIS TEST WAS PERFOR MED AT:[facility] [place] [phone] KIM MD Rapid Plasma Reagin Ab Titer TNP [facility] Blood Venous blood specimen / Unknown 07/15/2024 2:18 PM EDT 07/15/2024 2:18 PM EDT Daija Parry DO LAB BLOOD ORDERABLES Final R esult Performing Organization Address [facility] Co de Phone Number [facility] [address] [place] [phone] * HIV-1/2 Antigen and Antibodies, Fourth Generation, with Reflexes (07/15/2024 2:18 PM EDT) HIV AB/AG Nonreactive Nonreactive [facility] Comment:HIV-1 p24 Ag and/or HIV-1/HIV-2 Ab not detected.A test result that is nonreactive does not exclude thepossibility of exposure to or infection with HIV-1 and/orHIV-2. Nonreactive results in this assay for individualswith prior exposure to HIV-1 and/or HIV-2 may be due toantigen and antibody levels that are below the limit ofdetection of this assay.The [employer] Alinity HIV Ag/Ab Combo assay result andsupplemental assay results should be interpreted inconjunction with the patient's clinical presentation,history and other laboratory results. If the results areinconsistent with clinical evidence, additional testing issuggested to confirm the result. Blood Venous blood specimen / Unknown 07/15/2024 2:18 PM EDT 07/15/2024 2:18 PM EDT Daija Brinda DO LAB BLOOD ORDERABLES Final R esult Performing Organization Address City/[facility]/ZIP Co de Phone Number [facility] [address] [place] [address] [phone] * Hepatitis B Surface Antibody, Qualitative (07/15/2024 2:18 PM EDT) [facility] ~Hepatitis B Surface Antibody REACTIVE Nonreactive [facility] Comment:REACTIVE: > 11.99 mI U/mL Blood Venous blood specimen / Unknown 07/15/2024 2:18 PM EDT 07/15/2024 2:18 PM EDT Daija Parry DO LAB BLOOD ORDERABLES Final R esult Performing Organization Address [facility] Co de Phone Number [facility] [address] [place] [phone] * (ABNORMAL) CBC (07/15/2024 2:18 PM EDT) [facility] White Blood Count 7.6 4.8 - 10.8 X10*3/uL [facility] Red Blood Count 4.57 4.20 - 5.50 X10*6/uL [facility] Hemoglobin 14.0 12.0 - 16.0 g/dl [facility] Hematocrit 39.2 37.0 - 47.0 % [facility] Mean Corpuscular Volume 85.8 80.0 - 98.0 fL [facility] Mean Corpuscular Hemoglobin 30.6 27.0 - 33.0 pg [facility] Mean Corpuscular HGB Conc 35.7(H) 31.0 - 35.0 g/dl [facility] Red Cell Distribution Width 12.8 11.0 - 16.0 % [facility] Platelet Count 228 160 - 400 X10*3/uL [facility] Mean Platelet Volume 9.9 9.4 - 12.3 fL [facility] NRBC Pct Auto 0.0 0.0 - 0.2 /100WBC [facility] NRBC Abs Auto 0.000 0.0 - 0.012 X10*3/uL [facility] Blood Venous blood specimen / Unknown 07/15/2024 2:18 PM EDT 07/15/2024 2:18 PM EDT [facility] BLOOD ORDERABLES Final R esult Performing Organization Address City/[facility]/ZIP Co de Phone Number [facility] [address] [place] [address] [phone] * (ABNORMAL) TSH (07/15/2024 2:18 PM EDT) Thyroid Stimulating Hormone 7.67(H) 0.32 - 4.0 uIU/mL [facility] Comment:Note: A sustained TS H level above 2.5 uIU/mL may warrant further investigation. TSH 3rd Generation ([employer]) Blood Venous blood specimen / Unknown 07/15/2024 2:18 PM EDT 07/15/2024 2:18 PM EDT Daija [facility] LAB BLOOD ORDERABLES Final R esult Performing Organization Address City/[facility]/ZIP Co de Phone Number [facility] [address] [place] [phone] * T4, Free (07/15/2024 2:18 PM EDT) Free T4 (Free Thyroxine) 0.93 0.71 - 1.85 ng/dL [facility] Blood Venous blood specimen / Unknown 07/15/2024 2:18 PM EDT 07/15/2024 2:18 PM EDT us Daija Parry DO LAB BLOOD ORDERABLES Final R esult Performing Organization Address City/[facility] Co de Phone Number [facility] [address] [place] [address] [phone] * Hemoglobin A1c (07/15/2024 2:18 PM EDT) Hemoglobin A1c 5.9 <6.0 % [facility] Comment:Hemoglobin A1C Refer ence Range Adults: 4.8 - 6.0 % Non diabetic: < 6.0 % Goal: < 7.0 %Additional Action Suggested: > 8.0 %Note: Hemoglobin A1c results are invalid for patients with abnormal amounts of HbF. Blood transfusions may impact the HbA1c concentration in the patient sample. Estimated Average Glucose 123 mg/dL [facility] Comment:eAG = Estimated ave rage glucose which is %A1C expressed asaverage glucose, using the formula of the [id number] Glucose study (ADAG), Diabetes Care, Vol.31,#8,2007 Blood Venous blood specimen / Unknown 07/15/2024 2:18 PM EDT 07/15/2024 2:18 PM EDT Daija Parry DO LAB BLOOD ORDERABLES Final R esult Performing Organization Address City/[facility] Co de Phone Number [facility] [address] [place] [phone] * Ferritin (07/15/2024 2:18 PM EDT) Ferritin 141 10 - 250 ng/mL [facility] Blood Venous blood specimen / Unknown 07/15/2024 2:18 PM EDT 07/15/2024 2:18 PM EDT Daija Parry DO LAB BLOOD ORDERABLES Final R esult Performing Organization Address City/[facility]/ZIP Co de Phone Number [facility] [address] [place] [phone] * Hepatic Function Panel (07/15/2024 2:18 PM EDT) Bilirubin, Total 0.4 0.0 - 1.0 mg/dL [facility] Bilirubin, Direct 0.2 0.0 - 0.5 mg/dL [facility] Aspartate Amino Transferase 23 5 - 31 U/L [facility] Alanine Aminotransferase 29 0 - 31 U/L [facility] Total Protein 7.5 6.5 - 8.0 g/dL [facility] Albumin Level 4.0 3.5 - 5.0 g/dL [facility] Alkaline Phosphatase 94 39 - 117 U/L [facility] Blood Venous blood specimen / Unknown 07/15/2024 2:18 PM EDT 07/15/2024 2:18 PM EDT us Dajia Parry DO LAB BLOOD ORDERABLES [facility] Performing Organization Address [facility] Co de Phone Number [facility] [address] [place] [phone] * Lipid Panel, Standard (07/15/2024 2:18 PM EDT) Triglycerides 81 <150 mg/dL [facility] Comment:Desirable Triglyceri de: less than 150 mg/dLBorderline High Triglyceride 150-199 mg/dLHigh Triglyceride: 200-499 mg/dLVery High Triglyceride: greater than or equal to 5OO mg/dL Cholesterol 166 <200 mg/dL [facility] Comment:Desirable Cholestero l: less than 200 mg/dLBorderline High Cholesterol: 200-239 mg/dLHigh Cholesterol: greater than 239 mg/dL LDL Cholesterol Calculated 93 <100 mg/dL [facility] Comment:Desirable LDL: less than 100 mg/dLNear Optimal/Above Optimal LDL: 110- 129 mg/dLBorderline High LDL: 130-159 mg/dLHigh LDL: 160-189 mg/dLVery High LDL: greater than or equal to 190 mg/dL HDL Cholesterol 57 >40 mg/dL [facility] Comment:Desirable HDL: great er than 40 mg/dL Note: This HDL assay may give artificially low results in patients with liver disease. Blood Venous blood specimen / Unknown 07/15/2024 2:18 PM EDT 07/15/2024 2:18 PM EDT Daija Parry DO LAB BLOOD ORDERABLES Final R esult Performing Organization Address City/[facility] Co de Phone Number [facility] [address] [place] [phone] * (ABNORMAL) Basic Metabolic Panel (07/15/2024 2:18 PM EDT) Sodium 139 135 - 145 mmol/L [facility] Potassium 4.0 3.3 - 5.1 mmol/L [facility] Chloride 105 96 - 108 mmol/L [facility] Carbon Dioxide 26 22 - 29 mmol/L [facility] Anion Gap 12 12 - 20 [facility] Urea Nitrogen (BUN) 13 9 - 16 mg/dL [facility] Creatinine, Serum 0.75 0.5 - 1.4 mg/dL [facility] Estimated Glomerular Filt Rate >60 [facility] Comment:Chronic Kidney Disea se: Estimated GFR < 60 mL/min/1.83p1Avpals Kidney Disease: Estimated GFR < 15 mL/min/1.73m2 Glucose 134(H) 60 - 115 mg/dL [facility] Calcium 8.9 8.4 - 10.2 mg/dL [facility] Blood Venous blood specimen / Unknown 07/15/2024 2:18 PM EDT 07/15/2024 2:18 PM EDT Daija Parry DO LAB BLOOD ORDERABLES Final R esult Performing Organization Address City/[facility]/ZIP Co de Phone Number [facility] [address] [place] [phone] [phone] * Chlamydia/N. Gonorrhoeae RNA, TMA, Urogenitial (07/15/2024 1:13 PM EDT) CT PCR NOT DETECTED Not Detect. [facility] Comment:A not detected test result does [...] psychologicalconsequences. NG PCR NOT DETECTED Not Detect. [facility] Comment:A not detected test result does [...] PM EDT 07/15/2024 2:25 PM EDT Narrative [facility] - 07/15/2024 4:26 PM EDT Urine us Daija Parry DO LAB MICROBIOLOGY - GENERAL O RDERABLES Final Result [facility] [address] [place] [phone] * (ABNORMAL) Glucose, Whole Blood (06/30/2024 12:15 PM EDT) Glucose, Whole Blood 143(H) 60 - 115 mg/dL [facility] Comment:METER #: [id number] 06/30/2024 12:1 5 PM EDT 06/30/2024 12:18 PM EDT us Generic External Data Provider LAB BLOOD ORDERAB LES Final Result Performing Organization Address [facility] [place] [facility] de Phone Number [facility] [address] [place] [phone] * HCG, Qualitative, Urine (06/30/2024 11:43 AM EDT) Urine NEGATIVE NEGATIVE [facility] Comment:This test was develo ped to detect early . Falsenegative results may occur after the 5th - 7th week ofpregnancy when using this test method. If clinicallyindicated, consider a serum hCG. 06/30/2024 11:4 3 AM EDT 06/30/2024 11:44 AM EDT us Generic External Data Provider LAB URINE ORDERAB LES Final Result Performing Organization Address [facility] [place] [facility] de Phone Number [facility] [address] [place] [phone] * POCT BENITO-14 Urine Drug Screen (06/03/2024 1:34 PM EST) Urine Urine specimen obtained by clean catch procedure / Unknown 06/03/2024 1:34 PM EST Lakesha Peterson RN - 06/03/2024 1:34 PM EST UTOX cup Lot#[id number] Exp. 11/26/25 Internal Pass Control Negative for all substances us Chloé Wilson DESIGN DIRECTOR POINT OF CARE TEST ENTER/EDIT ORDERABLES Final Result * BI Mammogram Screening Tomosynthesis Bilateral (02/14/2024 12:07 PM EST) Anatomical Region Laterality Modality Breast Bilateral Mammography 02/14/2024 12:0 7 PM EST Narrative 02/22/2024 4:11 PM EST ? [facility] ? [address] ?[place] [address] ? Mammography Report ? Signed ? Patient: Cuellar,Shereen ?MR#: [id number] ? : 1975 ?Acct:[id number] ? Age/Sex: 48 / F ?ADM Date: 02/14/24 ? Loc: HO.MAMMO ? Attending Dr: Daija Parry DO ? Ordering Physician: Daija Parry DO ?Results: 1N ?? egative ? Date of Service: 02/14/24 ?Follow Up: 1 Year From Orig ?? inal Mammogram ? Procedure(s): MM tomosynthesis screening BI ?? Accession Number(s): [id number] ? cc: Daija Parry DO ? EXAMINATION: [...] DD/ 1207 ? TD/TT: 02/14/24 1223 ? Medical Device Engineer: ? Procedure Note Tito Sheets - 02/22/2024 [facility] [address] [place] [address] Mammography Report Signed Patient: Kira Cuellar#: [id number] : 1975Acct:[id number] Age/Sex: 48 / FADM Date: 02/14/24 Loc: HO.MAMMO Attending Dr: Daija Parry DO Ordering Physician: Daija Parryults: 1N egative Date of Service: 02/14/24Follow Up: 1 Year From Orig inal Mammogram Procedure(s): MM tomosynthesis screening BI Accession Number(s): [id number] cc: Daija Parry DO EXAMINATION: MM SCREENING [...] 02/22/24 1608 DD/ 1207 TD/TT: 02/14/24 1223 Medical Device Engineer: Daija Parry DO IMG BI PROCEDURES Final Resu lt * THINPREP TIS PAP (11/24/2020 6:42 AM EDT) Clinical Information: None given [facility] COMMENT SEE COMMENT FOUNDATI ON [...] has been evaluated with computer assisted technology. [employer] SYSTEM Cloth Bin Packer : SEE COMMENT [facility] Comment: ED, CT(ASCP) CT screening location: ?? [facility] ?? [address] [place] [address] ?? [place] [phone] Interpretation/R esult: Negative for intraepithelial lesion or malignancy. [facility] LMP: NONE GIVEN FOUNDATIO N LAB SYSTEM PATHOLOGIST: SEE COMMENT [facility] Comment: Sera Guzman M.D. Direct , Board Certified in Anatomic and Clinical Pathology and Cytopathology (electronic signature) Consulting Pathologist [facility] [address] [place] [address] Prev. BX: NONE GIVEN FOUNDATIO N LAB SYSTEM Prev. PAP: NONE GIVEN FOUNDATI ON LAB SYSTEM SOURCE: [employer] [facility] Statement Of Adequacy: SEE COMMENT [facility] Comment: Satisfactory for evaluation. Endocervical/transformation zone component present. Age and/or menstrual status not provided 11/24/2020 6:42 AM EDT Daija Parry DO LAB PATHOLOGY ORDERABLES Fin al Result Performing Organization Address City/State/[facility] Co de Phone Number [facility] [address] * Hm Colonoscopy (08/15/2012 8:08 AM EDT) Historical Provider HEALTH MAINTENANCE Final Result from Last 3 Months or Most Recently Relevant to Health Maintenance Insurance [facility] Care Teams Band Booker Relationship Specialty Start Date End Date Daija Parry DO [address] [place] [address] PCP - General Family Medicine 12/22/14 Ely Darling PharmD [address] [place] [address] Pharmacist Internal Medicine 11/22/22
--- OUTSIDE RECORDS SUMMARY | 2024-07-25 14:48 | XMS_ITS | Encounter Summary ---
Author Organization [employer] Address [address] [place] [address] 7 [place] [address] Care Team Providers Care Agent Producer Name Role Phone Daija Parry DO Primary Care Provider [phone] Ely Darling PharmD Unavailable Reason for Visit * Reason Onset Date Comments Appointment Request 10/19/2023 Encounter Details Date Type Department Care Team ([facility] st Contact Info) Description 10/19/2023 Telephone [facility] [address] [place], [place] [phone] Daija Parry DO [address] [place], [place] [phone] Appointment Request Social History Tobacco Use Types [...] Description 07/29/2024 9:45 AM EDT Office Visit [facility] [address] [place] [address] 08/11/2024 10:15 AM EDT Office Visit [facility] [address] [place] [address] Daija Parry DO [address] [place] [address] 09/09/2024 3:30 PM EDT Office Visit [facility] [address] [place] [address] Arielle Farr, OD [address] [place] [address] documented as of this encounter Goals Goal [...] documented as of this encounter Care Teams Agent Producer Relationship Specialty Start Date End Date Daija Parry DO [address] [place] [address] PCP - General Family Medicine 12/22/14 Ely Darling PharmD [address] [place] [address] Pharmacist Internal Medicine 11/22/22 documented as of this encounter
--- OUTSIDE RECORDS SUMMARY | 2024-07-25 14:48 | XMS_ITS | Encounter Summary ---
Author Organization [employer] Address [address] [place] [address] [address] [place] [address] Care Team Providers Care Industrial Staff Nurse Name Role Phone Daija Parry DO Primary Care Provider [phone]- [phone] Ely Darling PharmD Unavailable Reason for Visit * Reason Comments Med Refill Encounter Details Date Type Department Care Team ([facility] st Contact Info) Description 02/11/2024 Refill [facility] [address] [place] [address] Daija Parry DO [address] [place], [place] [phone] Hypothyroidism, unspecified type Social History Tobacco Use [...] the past 12 months, has t he [employer], gas, oil or water company threatened to [...] 9:45 AM EDT Office Visit [facility] [address] [place] [address] 08/11/2024 10:15 AM EDT Office Visit [facility] [address] [place] [address] Daija Parry DO [address] [place] [address] 09/09/2024 3:30 PM EDT Office Visit [facility] [address] [place] [address] Yordan, Arielle, OD [address] [place] [address] documented as of this encounter Goals Goal [...] as of this encounter Care Teams Industrial Staff Nurse Relationship Specialty Start Date End Date Daija Parry DO [address] [place] [address] PCP - General Family Medicine 12/22/14 Ely Darling PharmD [address] [place] [address] Pharmacist Internal Medicine 11/22/22 documented as of this encounter
--- OUTSIDE RECORDS SUMMARY | 2024-07-25 14:48 | XMS_ITS | Encounter Summary ---
Author Organization [email or web address] [facility] Address [address] [place] [address] 7t [place] [address] Care Team Providers Care 911 Telecommunicator Name Role Phone Josephforeign Daija Primary Care Provider [phone]- [phone] Ely Darling PharmD Unavailable Reason for Visit * Reason Comments Med Refill Encounter Details Date Type Department Care Team (Late st Contact Info) Description 12/16/2022 Refill [facility] [address] [place] [address] Daphney Roca MD [address] [place], [place] [phone] Mild persistent asthma, unspecified whether complicated Social [...] 9:45 AM EDT Office Visit [facility] [address] [place], [place] [phone] 08/11/2024 10:15 AM EDT Office Visit [facility] [address] [place] [phone] Daija Parry DO [address] [place] [address] 09/09/2024 3:30 PM EDT Office Visit [facility]RY [address] [place] [address] Yordan, Arielle, OD [address] [place] [address] documented as of this encounter Goals Goal [...] documented as of this encounter Care Teams 911 Telecommunicator Relationship Specialty Start Date End Date Daija Parry DO [address] [place] [address] PCP - General Family Medicine 12/22/14 Ely Darling, PharmD [address] [place] [phone] Pharmacist Internal Medicine 11/22/22 documented as of this encounter
--- OUTSIDE RECORDS SUMMARY | 2024-07-25 14:48 | XMS_ITS | Encounter Summary ---
Author Organization [employer] Address [address] [place] [address] 7t [place] [address] Care Team Providers Care Engineering Programmer Name Role Phone Daija Parry DO Primary Care Provider +1- [phone] Ely Darling PharmD Unavailable [phone] Reason for Visit * Reason Comments Med Refill Encounter Details Date Type Department Care Team (Late st Contact Info) Description 09/30/2023 Refill [facility] [address] [place] [address] Daija Parry DO [address] [place] [address] Pain Social History Tobacco Use Types Packs/Day [...] the past 12 months, has t he [employer], gas, oil or water company threatened [...] Description 07/29/2024 9:45 AM EDT Office Visit [facility] [address] [place] [address] 08/11/2024 10:15 AM EDT Office Visit [facility] [address] [place] [address] aDija Parry DO [address] [place] [address] 09/09/2024 3:30 PM EDT Office Visit [facility] [address] [place] [address] Yordan, Arielle, OD [address] [place] [address] documented as of this encounter Goals Goal [...] documented as of this encounter Care Teams Engineering Programmer Relationship Specialty Start Date End Date Daija Parry DO [address] [place] [address] PCP - General Family Medicine 12/22/14 Ely Darling PharmD [address] [place] [address] Pharmacist Internal Medicine 11/22/22 documented as of this encounter
--- OUTSIDE RECORDS SUMMARY | 2024-07-25 14:48 | XMS_ITS | Encounter Summary ---
Author Organization [employer] Address [address] [place] [address] 7t [place] [address] Care Team Providers Care Benefits Sales Consultant Name Role Phone Daija Parry DO Primary Care Provider [phone]- [phone] Ely Darling PharmD Unavailable [phone] Reason for Visit * Reason Onset Date Comments Med Refill 07/21/2024 Encounter Details Date Type Department Care Team (Late st Contact Info) Description 07/21/2024 Refill [facility] PEDS [address] [place] [address] Daija Parry DO [address] [place] [address] Chronic bilateral low back pain with bilateral sciatica Social History Tobacco Use Types Packs/Day Years [...] the past 12 months, has t he [employer], gas, oil or water [employer] threatened to shut off services in your [...] encounter Miscellaneous Notes * Addendum Note - Pamela Medrano RN - 07/21/2024 1:31 PM EDTAddended by: PAMELA MEDRANO on: 07/21/2024 01:31 PM Modules accepted: Orders * Telephone Encounter - Esther Quinn LPN - 07/21/2024 1:21 PM EDT Received request on traMADol (Ultram) 50 MG tablet documented in this encounter Plan of Treatment Upcoming Encounters Date Type Department Care Team (Late st Contact Info) Description 07/29/2024 9:45 AM EDT [facility] [address] [place] [address] 08/11/2024 10:15 AM EDT Office Visit [facility] [address] [place] [address] Daija Parry DO [address] [place] [address] 09/09/2024 3:30 PM EDT Office Visit [facility] [address] [place], [place] [address] Arielle Farr, OD [address] [place] [address] documented as of this encounter Goals Goal [...] bilateral low back pain with bilateral sciatica documented in this encounter Additional Health Concerns Assessment Noted Time PHQ-9 Depression Total Score: 22 025 3:28 PM EDT documented as of this encounter Care Teams Benefits Sales Consultant Relationship Specialty Start Date End Date Daija Parry DO [address] [place], [place] [phone] PCP - General Family Medicine 12/22/14 Ely Darling PharmD [address] [place], [place] [phone] Pharmacist Internal Medicine 11/22/22 documented as of this encounter
--- OUTSIDE RECORDS SUMMARY | 2024-07-25 14:48 | XMS_ITS | Encounter Summary ---
Author Organization [employer] Address [address] [place] [address] 7t [place] [address] Care Team Providers Care Meteorology Faculty Member Name Role Phone Daija Parry DO Primary Care Provider [phone] Lopez Marroquin PharmD Unavailable Unavail able Ely Darling PharmD Unavailable Reason for Visit * Reason Onset Date Comments Appointment Request 06/27/2022 Encounter Details Date Type Department Care Team ([facility] st Contact Info) Description 06/27/2022 Telephone [facility] [address] [place], [place] [phone] Daija Parry DO [address] [place], [place] [phone] Appointment Request Social History Tobacco Use Types [...] r/s appt for 06/27/2022 Office visit extended. Water System Operator tried booking but noavailable spaces. Please contact pt at [phone] documented in this encounter Plan of Treatment Upcoming Encounters Date Type Department Care Team (Late st Contact Info) Description 07/29/2024 9:45 AM EDT Office Visit [facility] [address] [place] [address] 08/11/2024 10:15 AM EDT Office Visit [facility] [address] [place] [address] Daija Parry DO [address] [place] [address] 09/09/2024 3:30 PM EDT Office Visit [facility] [address] [place] [address] Arielle Farr, OD [address] [place] [address] documented as of this encounter Goals Goal [...] documented as of this encounter Care Teams Meteorology Faculty Member Relationship Specialty Start Date End Date Daija Parry DO [address] [place] [address] PCP - General Family Medicine 12/22/14 Lopez Marroquin, AugustoD [address] [place] [address] Pharmacist Internal Medicine 06/25/22 11/22/22 Ely Darling PharmD [address] [place] [address] Pharmacist Internal Medicine 11/22/22 documented as of this encounter
--- OUTSIDE RECORDS SUMMARY | 2024-07-25 14:48 | XMS_ITS | Encounter Summary ---
Author Organization [employer] Address [address] [place] [address] 7 [place] [address] Care Team Providers Care Wire Weaving Loom Setter Name Role Phone Daija Parry DO Primary Care Provider [phone] Ely Darling PharmD Unavailable Reason for Visit * Reason Onset Date Comments Med Refill 02/07/2024 Encounter Details Date Type Department Care Team ([facility] st Contact Info) Description 02/07/2024 Telephone [facility] [address] [place], [place] [phone] Daija Parry DO [address] [place], [place] [phone] Med Refill Social History Tobacco Use Types [...] the past 12 months, has t he [employer], gas, oil or water company threatened to [...] 50 MG tablet To be sent to: [facility] [place], [place] - [address] [facility] documented in this encounter Plan of Treatment Upcoming Encounters Date Type Department Care Team (Late st Contact Info) Description 07/29/2024 9:45 AM EDT Office Visit [address] [address] 08/11/2024 10:15 AM EDT Office Visit [facility] [address] [place] [address] Daija Parry DO [address] [place] [address] 09/09/2024 3:30 PM EDT Office Visit [facility] [address] [place] [address] Yordan, Arielle, OD [address] [place] [address] documented as of this encounter Goals Goal [...] as of this encounter Care Teams Wire Weaving Loom Setter Relationship Specialty Start Date End Date Daija Parry DO [address] [place] [address] PCP - General Family Medicine 12/22/14 Ely Darling, PharmD [address] [place] [address] [phone] Pharmacist Internal Medicine 11/22/22 documented as of this encounter
--- OUTSIDE RECORDS SUMMARY | 2024-07-25 14:49 | XMS_ITS | Encounter Summary ---
Author Organization [employer] Address [address] [place] [address] 7 [place] [address] Care Team Providers Care Boat Joiner Helper Name Role Phone Daija Parry DO Primary Care Provider [phone]- [phone] Ely Darling PharmD Unavailable Reason for Visit * Reason Onset Date Comments Med Refill 05/15/2024 Encounter Details Date Type Department Care Team (Late st Contact Info) Description 05/15/2024 Refill [facility] [address] [place], [place] [phone] Daija Parry DO [address] [place], [place] [phone] Pain Social History Tobacco Use Types Packs/Day [...] the past 12 months, has t he [employer], gas, oil or water company threatened to [...] Description 07/29/2024 9:45 AM EDT Office Visit [facility] [address] [place] [address] 08/11/2024 10:15 AM EDT Office Visit [facility] [address] [place] [address] Daija Parry DO [address] [place] [address] 09/09/2024 3:30 PM EDT Office Visit [facility] OPTOMET[facility] [address] [place] [address] Yordan, Arielle, OD [address] [place] [address] documented as of this encounter Goals Goal [...] documented as of this encounter Care Teams Boat Joiner Helper Relationship Specialty Start Date End Date Daija Parry DO [address] [place] [address] PCP - General Family Medicine 12/22/14 Ely Darling PharmD [address] [place] [address] Pharmacist Internal Medicine 11/22/22 documented as of this encounter
--- OUTSIDE RECORDS SUMMARY | 2024-07-25 14:49 | XMS_ITS | Encounter Summary ---
Author Organization [employer] Address [address] [facility] 7t [place] [address] Care Team Providers Care Jordan Man Name Role Phone Daija Parry DO Primary Care Provider [phone]- [phone] Ely Darling PharmD Unavailable [phone] Encounter Details Date Type Department Care Team (Late st Contact Info) Description 07/19/2023 Orders Only [facility] MED[facility]INE [address] [place] [address] ProviderAnnel MD Social History Tobacco Use Types [...] Description 07/29/2024 9:45 AM EDT Office Visit [facility] [address] [place] [address] 08/11/2024 10:15 AM EDT Office Visit [facility] [address] [place] [address] Daija Parry, [address] [place] [address] 09/09/2024 3:30 PM EDT Office Visit [facility] OPTOM[facility]RY [address] [place] [address] Arielle Farr, OD [address] [place] [address] documented as of this encounter Goals Goal [...] documented as of this encounter Care Teams Jordan Man Relationship Specialty Start Date End Date Daija Parry DO [address] [place] [address] PCP - General Family Medicine 12/22/14 Ely Darling PharmD [address] [place] [address] Pharmacist Internal Medicine 11/22/22 documented as of this encounter
--- OUTSIDE RECORDS SUMMARY | 2024-07-25 14:49 | XMS_ITS | Encounter Summary ---
Author Organization [facility] Address [address] [place] [address] 7t [place] [address] Care Team Providers Care Volunteer Services Coordinator Name Role Phone Daija Parry DO Primary Care Provider [phone] DelLopez moreno PharmD Unavailable Unavail able Ely Darling PharmD Unavailable Encounter Details Date Type Department Care Team ([facility] Contact Info) Description 05/15/2022 Telephone [facility] MEDICINE [address] [place] [phone] Daija Parry DO [address] [place] [address] [phone] Social History Tobacco Use Types Packs/Day Years [...] Upcoming Encounters Date Type Department Care Team ([facility] Contact Info) Description 07/29/2024 9:45 AM EDT Office Visit [facility] MEDICINE [address] [place] [address] [place] [address] 08/11/2024 10:15 AM EDT Office Visit [facility] [address] [facility] [place] [address] Daija Parry DO [address] [facility] [place] [address] 09/09/2024 3:30 PM EDT Office Visit [facility] OPTOMETRY [address] [place] [address] Yordan, Arielle, OD [address] [facility] [place] [address] documented as of this encounter Visit Diagnoses Not on filedocumented in this encounter Additional Health Concerns Assessment Noted Time PHQ-9 Depression Total Score: 24 022 10:57 AM EST documented as of this encounter Care Teams Volunteer Services Coordinator Relationship Specialty Start Date End Date Daija Parry DO [address] [facility] [place] [address] PCP - General Family Medicine 12/22/14 Lopez Marroquin, PharmD [address] [place] [address] Pharmacist Internal Medicine 06/25/22 11/22/22 Ely Darling, [place] [address] Pharmacist Internal Medicine 11/22/22 documented as of this encounter
--- OUTSIDE RECORDS SUMMARY | 2024-07-25 14:49 | XMS_ITS | Encounter Summary ---
Author Organization [facility] Address [address] [place] [address] 7t [place] [address] Care Team Providers Care Passenger Relations Representative Name Role Phone Daija Parry DO Primary Care Provider DelLopez moreno PharmD Unavailable Unavail able Ely Darling PharmD Unavailable Encounter Details Date Type Department Care Team ([facility] Contact Info) Description 03/13/2022 Orders Only [facility] MEDICINE [address] [place] [phone] Daija Parry DO [address] [place] [address] [phone] Social History Tobacco Use Types Packs/Day Years [...] Description 07/29/2024 9:45 AM EDT Office Visit [facility] MEDICINE [address] [place] [address] 08/11/2024 10:15 AM EDT Office Visit [facility] MEDICINE [address] [place] [address] Daija Parry DO [address] [place] [address] 09/09/2024 3:30 PM EDT Office Visit [facility] OPTOMETRY [address] [place] [address] Yordan, Arielle, OD [address] [place] [address] documented as of this encounter Procedures Procedure [...] 10:15 AM EDT) Creatinine, Urine 326.51 mg/dL [facility] Microalbumin Urine 24.0 mg/L [facility] Microalbum Creatinine Ratio Ur 7.3 <30 ug/mg cr [facility] Comment:Albumin/Creatinine R atio Reference Ranges: Normal: < 30 ug/mg creatinine Microalbuminuria: 30 - 300 ug/mg creatinineClinical Albuminuria: > 300 ug/mg creatinine 01/02/2023 10:1 5 AM EDT 01/02/2023 11:37 AM EDT Daija Parry DO LAB URINE ORDERABLES Final R esult Performing Organization Address [facility] de Phone Number [facility] [address] [place] [phone] * (ABNORMAL) TSH (06/29/2022 3:06 PM EDT) Pathologist [facility] Thyroid Stimulating Hormone 8.15(H) 0.32 - 4.0 uIU/mL [facility] Comment:Note: A sustained TS H level above 2.5 uIU/mL may warrant further investigation. TSH 3rd Generation ([facility]) 06/29/2022 3:06 PM EDT 06/29/2022 3:06 PM EDT [facility] External Provider LAB BLO OD ORDERABLES Final Result Performing Organization Address [facility] de Phone Number [facility] [address] [place] [phone] * T4, Free (06/29/2022 3:06 PM EDT) [facility] Free T4 (Free Thyroxine) 0.77 0.71 - 1.85 ng/dL [facility] 06/29/2022 3:06 PM EDT 06/29/2022 3:06 PM EDT [facility] External Provider LAB BLO OD ORDERABLES Final Result Performing Organization Address [facility] de Phone Number [facility] [address] [place] [address] [phone] * (ABNORMAL) Basic Metabolic Panel (06/29/2022 3:06 PM EDT) [facility] Sodium 138 135 - 145 mmol/L [facility] Potassium 4.3 3.3 - 5.1 mmol/L [facility] Comment:Slight Hemolysis Chloride 104 96 - 108 mmol/L [facility] Carbon Dioxide 27 22 - 29 mmol/L [facility] Anion Gap 11(L) 12 - 20 [facility] Urea Nitrogen (BUN) 13 9 - 16 mg/dL [facility] Creatinine, Serum 0.71 0.5 - 1.4 mg/dL [facility] Estimated Glomerular Filt Rate >60 [facility] Comment:NOTE: For -Am erican individuals, multiply the result by 1.210.Chronic Kidney Disease: Estimated GFR < 60 mL/min/[id number] Kidney Disease: Estimated GFR < 15 mL/min/1.73m2 Glucose 113 60 - 115 mg/dL [facility] Calcium 9.2 8.4 - 10.2 mg/dL [facility] 06/29/2022 3:06 PM EDT 06/29/2022 3:06 PM EDT [facility] External Provider LAB BLO OD ORDERABLES Final Result [facility] [address] [place] [phone] * Hemoglobin A1c (06/29/2022 3:06 PM EDT) Hemoglobin A1c 6.7 % [facility] Comment:Hemoglobin A1C Refer ence Range Adults: 4.8 - 6.0 % Non diabetic: < 6.0 % Goal: < 7.0 %Additional Action Suggested: > 8.0 %Note: Hemoglobin A1c results are invalid for patients with abnormal amounts of HbF. Blood transfusions may impact the HbA1c concentration in the patient sample. Estimated Average Glucose 146 mg/dL [facility] Comment:eAG = Estimated ave rage glucose which is %A1C expressed asaverage glucose, using the formula of the G3A-SvvpraiCwcmkjo Glucose study (ADAG), Diabetes Care, Vol.31,#8,Nov. 2007 06/29/2022 3:06 PM EDT 06/29/2022 3:06 PM EDT [facility] External Provider LAB BLO OD ORDERABLES Final Result [facility] [address] [place], [place] [phone] * (ABNORMAL) CBC auto differential (06/29/2022 3:06 PM EDT) White Blood Count 9.9 4.8 - 10.8 X10*3/uL [facility] Red Blood Count 4.49 4.20 - 5.50 X10*6/uL [facility] Hemoglobin 13.8 12.0 - 16.0 g/dl [facility] Hematocrit 40.2 37.0 - 47.0 % [facility] Mean Corpuscular Volume 89.5 80.0 - 98.0 fL [facility] Mean Corpuscular Hemoglobin 30.7 27.0 - 33.0 pg [facility] Mean Corpuscular HGB Conc 34.3 31.0 - 35.0 g/dl [facility] Red Cell Distribution Width 13.2 11.0 - 16.0 % [facility] Platelet Count 277 160 - 400 X10*3/uL [facility] Mean Platelet Volume 9.3(L) 9.4 - 12.3 fL [facility] Neutrophils Percent Auto 74.2(H) 45 - 73 % [facility] Imm Gran Pct Auto 0.4 0.0 - 0.4 % [facility] Lymphocytes Percent Auto 17.4(L) 20 - 40 % [facility] Monocytes Percent Auto 7.1 2 - 11 % [facility] Eosinophils Percent Auto 0.6 0 - 4 % [facility] Basophils Percent Auto 0.3 0 - 2 % [facility] NRBC Pct Auto 0.0 0.0 - 0.2 /100WBC [facility] Neutrophils Absolute Auto 7.4 2.0 - 8.3 x10*3/uL [facility] Imm Gran Abs Auto 0.04(H) 0.00 - 0.03 X10*3/uL [facility] Lymphocytes Absolute Auto 1.7 1.2 - 4.9 X10*3/uL [facility] Monocytes Absolute Auto 0.7 0.1 - 1.2 X10*3/uL [facility] Eosinophils Absolute Auto 0.1 0.0 - 0.4 X10*3/uL [facility] Basophils Absolute Auto 0.0 0.0 - 0.2 X10*3/uL [facility] NRBC Abs Auto 0.000 0.0 - 0.012 X10*3/uL [facility] 06/29/2022 3:06 PM EDT 06/29/2022 3:06 PM EDT [facility] External Provider LAB BLO OD ORDERABLES Final Result [facility] [address] [place] [address] [phone] documented in this encounter Visit Diagnoses Not on filedocumented in this encounter Additional Health Concerns Assessment Noted Time PHQ-9 Depression Total Score: 24 022 10:57 AM EST documented as of this encounter Care Teams Passenger Relations Representative Relationship Specialty Start Date End Date Daija Parry DO [address] [place] [phone] PCP - General Family Medicine 12/22/14 Lopez Marroquin, PharmD [address] [place] [phone] Pharmacist Internal Medicine 06/25/22 11/22/22 Ely Darling PharmD [address] [place] [address] Pharmacist Internal Medicine 11/22/22 documented as of this encounter
--- OUTSIDE RECORDS SUMMARY | 2024-07-25 14:49 | XMS_ITS | Encounter Summary ---
Author Organization [employer] Address [address] [place] [address] 7t [place] [address] Care Team Providers Care Grease Maker Head Name Role Phone Daija Parry DO Primary Care Provider DelLopez moreno PharmD Unavailable Unavail able Ely Darling PharmD Unavailable Reason for Visit * Reason Onset Date Comments Durable Medical Equipment 05/10/2022 Encounter Details Date Type Department Care Team (Late st Contact Info) Description 05/10/2022 Telephone [facility] MEDICINE [address] [place], [place] [phone] Daija Parry DO [address] [place], [place] [phone] Durable Medical Equipment Social History Tobacco Use [...] non fragrance wipes Please contact valentin at [phone] documented in this encounter Plan of Treatment Upcoming Encounters Date Type Department Care Team (Late st Contact Info) Description 07/29/2024 9:45 AM EDT Office Visit [facility] [address] [place] [address] 08/11/2024 10:15 AM EDT Office Visit [facility] [address] [place] [address] Daija Parry DO [address] [place] [address] 09/09/2024 3:30 PM EDT Office Visit [facility] OPTOMETRY [address] [place] [address] Yordan, Arielle, OD [address] [place] [address] documented as of this encounter Visit Diagnoses Not on filedocumented in this encounter Additional Health Concerns Assessment Noted Time PHQ-9 Depression Total Score: 24 022 10:57 AM EST documented as of this encounter Care Teams Grease Maker Head Relationship Specialty Start Date End Date Daija Parry DO [address] [place] [address] PCP - General Family Medicine 12/22/14 Lopez Marroquin, AugustoD [address] [place] [address] Pharmacist Internal Medicine 06/25/22 11/22/22 Ely Darling, Ashish [address] [place] [phone] Pharmacist Internal Medicine 11/22/22 documented as of this encounter
--- OUTSIDE RECORDS SUMMARY | 2024-07-25 14:49 | XMS_ITS | Clinical Summary ---
Author Organization [facility] Address [address] [place] [phone] Phone Care Team Providers Care Manager Asset Name Role Phone Daija Parry DO Primary [...] Do not crush or chew. Active pancrelipase, Iam-Srsz-Nntu, (Creon) 17183-32489 units capsule Take 1 capsule by mouth [...] series) 1992 05/16/2004, 01/07/2004, 11/30/2003 Pneumococcal Vaccine: 50+ Ye ars (3 of 3 - PCV) 09/23/2015 09/22/2014, [...] 2024 01/02/2023, 01/20/2022, 02/17/2021, Additional history exists Pneumococcal Vaccine: Peds ( 0 to 5 Years) and At-Risk Patients (6 to 49 Years) Discontinued 09/22/2014, 10/21/2012 Procedures Procedure Name Priority Date/Time Associated Diagnosis [...] 9.6 8.7 - 10.7 mg/dL eGFR Non-Afr Faroese 100 Total Bilirubin 0.4 MG/DL Bilirubin Direct [...] Recently Relevant to Health Maintenance Insurance [facility] One [employer] Dual SNP ([id number]) [facility] One [employer] Dual SNP ([id number]) Care Teams Manager Asset Relationship Specialty Start Date End Date Daija Parry DO PCP - General Family Medicine 03/13/22
--- OUTSIDE RECORDS SUMMARY | 2024-07-25 14:49 | XMS_ITS | Encounter Summary ---
Author Organization [employer] Address [address] [place] [address] 7t [place] [address] Care Team Providers Care Horseradish Grinder Name Role Phone Daija Parry DO Primary Care Provider [phone] DelLopez moreno PharmD Unavailable Unavail able Ely Darling PharmD Unavailable [phone] Reason for Visit * Reason Onset Date Comments Med Refill 06/12/2022 Encounter Details Date Type Department Care Team ([facility] st Contact Info) Description 06/12/2022 Telephone [facility] MEDICINE [address] [place], [place] [phone] Daija Parry DO [address] [place], [place] [phone] Med Refill Social History Tobacco Use Types [...] (KlonoPIN) 0.5 MG tablet Please sent to [facility] [place], [place] - [address] [place] [address] documented in this encounter Plan of Treatment Upcoming Encounters Date Type Department Care Team (Late st Contact Info) Description 07/29/2024 9:45 AM EDT Office Visit [facility] MEDICINE [address] [place] [address] 08/11/2024 10:15 AM EDT Office Visit [facility] MEDICINE [address] [place] [address] Daija Parry DO [address] [place] [address] 09/09/2024 3:30 PM EDT Office Visit [facility] OPTOMETRY [address] [place] [address] Yordan, Arielle, OD [address] [place] [address] documented as of this encounter Visit Diagnoses Not on filedocumented in this encounter Additional Health Concerns Assessment Noted Time PHQ-9 Depression Total Score: 24 023 11:12 AM EST documented as of this encounter Care Teams Horseradish Grinder Relationship Specialty Start Date End Date Daija Parry DO [address] [place] [address] PCP - General Family Medicine 12/22/14 Lopez Marroquin, AugustoD [address] [place] [phone] Pharmacist Internal Medicine 06/25/22 11/22/22 Ely Darling, Ashish [address] [place] [address] Pharmacist Internal Medicine 11/22/22 documented as of this encounter
[2024-07-25 15:04] VITALS: BP 174/85; PULSE 80; BMI 52.0
== END 2024-07-25 15:41 | disposition home or self-care (01) ==
LOC: HO.HGI 14:34
PROVIDERS: PCP Family Medicine; Visit Provider Nurse Practitioner
DX: K58.0 Irritable bowel syndrome with diarrhea (principal); K31.84 Gastroparesis; D12.6 Benign neoplasm of colon, unspecified; K85.90 Acute pancreatitis without necrosis or infection, unspecified
CPT/HCPCS: 99213

== ENCOUNTER → 2024-07-25 14:33 | Outpatient (BNVA) | payer OTHER, SELFPAY | PROVIDERS: PCP Family Medicine; Visit Provider Nurse Practitioner | DX: K58.0 Irritable bowel syndrome with diarrhea (principal); K31.84 Gastroparesis; K85.90 Acute pancreatitis without necrosis or infection, unspecified; D12.6 Benign neoplasm of colon, unspecified | CPT/HCPCS: 99212 ==

== ENCOUNTER 2024-10-13 14:50 | Outpatient (AMB) | payer OTHER, SELFPAY ==
--- NOTE | 2024-10-13 15:04 | MHC.OFFVIS ---
Vital Signs 10/13/24 15:05 Weight 284 lb 6.341 oz BP 120/64 Blood Pressure Location Lt radial Pulse 110 H Pulse Source Pulse Oximeter Pulse Oximetry (%) 98 Oxygen Delivery Method Room Air Intake Visit Reasons: asthma Pediatric Speech Language Pathologist Required: No Allergies cefuroxime (From CEFTIN) Allergy (Severe, Verified 10/13/24 15:09) HIVES Medication List - Last Reconciled 10/13/24 by Kiersten Vides, SHELL MOLDER albuterol sulfate 90 mcg/actuation (Ventolin HFA) 2 puffs inhalation Q4-6H PRN 30 days alosetron (Lotronex) 1 mg PO BID clonazepam 0.5 mg PO TID PRN 30 days dicyclomine 20 mg PO QID 30 days dulaglutide (Trulicity) 0.75 mg subcut QWEEK empagliflozin (Jardiance) 10 mg PO QAM famotidine 40 mg PO BEDTIME 30 days fluticasone furoate 200 mcg/actuation (Arnuity Ellipta) 1 inh inhalation DAILY furosemide mg PO DAILY gabapentin 400 mg PO TID 30 days hydralazine mg PO hydrochlorothiazide mg PO DAILY ibuprofen mg PO 3XD levothyroxine mcg PO DAILY quadtq-tgnwxmto-skdogag 24,000-76,000 -120,000 unit (Creon) 2 caps PO QID loperamide 2 mg PO Q8H PRN loratadine 10 mg PO DAILY 30 days losartan mg PO DAILY metoclopramide HCl 10 mg PO TIDAC 90 days mineral oil-hydrophil petrolat (petrolatum topical ointment) topical BID PRN montelukast mg PO DAILY ondansetron HCl 4 mg PO TID PRN pantoprazole 40 mg PO .qamac paroxetine HCl mg PO DAILY pentosan polysulfate sodium (Elmiron) 200 mg (2 x 100 mg) PO BID 90 days solifenacin 10 mg PO DAILY 90 days solifenacin mg PO sulfamethoxazole-trimethoprim 400-80 mg (Bactrim) 1 tab PO DAILY 3 days tramadol 50 mg PO Q6H PRN verapamil ER 240 mg PO QAM zolpidem 10 mg PO BEDTIME 30 days HPI HPI asthma: Details: Shereen is a pleasant 49 year old female, never smoker, with underlying asthma, morbid obesity and AISHWARYA on CPAP therapy. She continues to report moderate control on current regimen of singulair, and Asmanex 100 mcg. She does report that her depression has worsened after the of her brother in May, she is under the care of a therapist. Due to this she has had decreased activity over the last few months and increased dyspnea. She was previously recommended to have an updated pulmonary function tests which she is agreeable to schedule today. Today she presents to review compliance report for obstructive sleep apnea. Of note, she recently had her machine fixed, now working with no issues. She denies any visits to urgent care hospitalizations related to respiratory distress since last visit. [facility] Medical History (Updated 10/02/24 @ 15:49 by JOANNE Vazquez) Epicondylitis, lateral Nocturnal hypoxemia Dyspnea Hemorrhoids Pulmonary arteriovenous malformation Morbid obesity with BMI of 50.0-59.9, adult Recent bereavement Depression Morning headache Daytime somnolence Diabetes Asthma Pre-op examination Family history of colon cancer Greater trochanteric bursitis of left hip Greater trochanteric bursitis of right hip Hirsutism Varicose veins with pain Restless leg syndrome Congenital pulmonary arteriovenous malformation Fungal infection of skin of abdomen Diabetes mellitus Urinary frequency Patellofemoral arthralgia of right knee Obstructive sleep apnea Hypothyroidism Hypertension Urinary retention Left forearm pain Interstitial cystitis Spinal stenosis of lumbar region Chronic pain syndrome Disc degeneration, lumbar Spondylosis, lumbar, with myelopathy Morbid obesity due to excess calories Arthritis Fibromyalgia Migraines Hypothyroid Restrictive lung disease Allergic rhinitis AISHWARYA on CPAP Nausea and vomiting GERD (gastroesophageal reflux disease) Surgical History Hx of spinal surgery Hx of cystoscopy Hx of colonoscopy History of esophagogastroduodenoscopy (EGD) Family History Father Alcoholism Mother Leukemia Maternal Aunt Breast cancer Sister Depression Vertigo Family/Other Heart problem Diabetes Cancer Brother Atherosclerotic cardiovascular disease Cardiomegaly Social History Household Members: Family Household Members Other:: Niece and great nieces and nephews Housing: Apartment Are you a primary med care manager to a significant other at home: No Do you presently have visiting nurse or other home services: No Alcohol intake: never Comment: NONE Patient Tobacco Use Status: Never used Tobacco e-Cigarette/Vaping Use: Never Used Second Hand Smoke Exposure: No Substance Use Type: Marijuana service: No Current occupational status: disabled 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 Sexual orientation: Decline to Answer Review of Systems Const Denies chills, Denies excessive sweating, Denies fever(s), Denies headache(s) and Denies night sweats Eyes Denies dry eyes, Denies irritation and Denies itchy eyes ENT Reports Normal hearing present, Denies headache(s), Denies nasal congestion, Denies nasal discharge, Denies post nasal drip and Denies sore throat Card Denies chest pain, Denies chest pain at rest, Denies chest pain with activity, Denies claudication, Denies leg edema, Denies orthopnea and Denies paroxysmal nocturnal dyspnea Resp Denies chest congestion, Denies excessive phlegm production, Denies pain on inspiration, Denies pain with cough, Denies stridor and Denies wheezing Musc Denies myalgias Neuro Reports Normal hearing present and Denies headache(s) Endo Denies excessive sweating Abner/Lymph Denies lymphadenopathy Aller/Immun Denies itchy eyes, Denies seasonal rhinorrhea and Denies wheezing Physical Exam Vital Signs: Last Vital Signs Pulse 110 H 10/13/24 15:05 BP 120/64 10/13/24 15:05 Pulse Ox 98 10/13/24 15:05 Oxygen Delivery Method Room Air 10/13/24 15:05 Const General: cooperative, healthy appearing, comfortable, no acute distress, well developed and alert Nutritional Appearance: obese Orientation/consciousness: patient oriented x3 Limitations: no limitations HEENT Head: Yes normal to inspection, Yes normocephalic and Yes atraumatic Ears: hearing grossly normal bilaterally and external ears normal Eyes General: appearance normal, both eyes and all related structures Eyelids: Yes eyelids normal Sclerae: sclerae normal EOM: EOMs intact bilaterally Neck Neck: Yes normal visual inspection and Yes no lymphadenopathy Lymphatic: no lymphadenopathy noted Chest Chest palpation & inspection: normal inspection of the chest Resp Effort & Inspection: normal respiratory effort, able to speak in complete sentences, no audible wheezes, no cough, no stridor, not tachypneic, no tripod positioning and no use of accessory muscles Auscultation: clear to auscultation bilaterally Cardio Jugular venous distension: no JVD Rate: regular rate Rhythm: regular rhythm Skin Other: warm, dry General skin exam: no rashes or lesions noted Neuro General: patient oriented x3 Cranial nerves: Yes Normal hearing present Cognition (Neuro): normal cognition Gait exam (Neuro): Normal gait present Extrem General: Yes normal to inspection, Yes capillary refill normal, Yes no clubbing, cyanosis or edema and Yes no pedal edema Psych Appearance: grossly normal and well kempt Speech and movement: Normal speech and movement present and Clear speech present Affect: normal affect Attitude: cooperative Thought process: Normal thought process present Thought content: Normal thought content present Insight: Good insight present (Psych) Judgement: Good judgement present (Psych) Assessment & Plan Assessment & Plan (1) Obstructive sleep apnea: Comment: on Bipap Code(s): G47.33 - Obstructive sleep apnea (adult) (pediatric) Category: Medical (2) Nocturnal hypoxemia: Code(s): G47.34 - Idiopathic sleep related nonobstructive alveolar hypoventilation Category: Medical (3) Daytime somnolence: Code(s): R40.0 - Somnolence Category: Medical Plan At this time patient reports moderate control of respiratory symptoms using Arnuity, however continues with dyspnea, which may be multifactorial with obesity/deconditioning etiologies. Prior PFT from 2019, will schedule updated PFT today. Reviewed compliance report and patient has used CPAP therapy greater than 4 hours for 87% of the time, AHI 5.9 however patient with significant leaking the last few days of the month related to malfunctioning machine, recently fixed. She continues to have leaking, unclear if related to defective machine versus mask. Will review at next visit and consider switching her mask if leaking continues. All questions were answered and patient is in agreement of plan. Will follow up in 3 months or sooner if needed. Scribe Plan - Not visible on output: I spent 12 minutes speaking with the patient on the phone plus an additional 10 minutes reviewing and updating records for a total of 22 minutes Coding Level of Care Code Est Pt Level 4 (47405) Diagnoses Obstructive sleep apnea G47.33 Nocturnal hypoxemia G47.34 Daytime somnolence R40.0
[2024-10-13 15:05] VITALS: BP 120/64; PULSE 110; O2SAT 98
--- OUTSIDE RECORDS SUMMARY | 2024-10-13 15:21 | XMS_ITS | Encounter Summary ---
Author Organization [employer] Address [address] [facility] 7[address] [place] [address] Care Team Providers Care Honing Machine Set Up Operator Name Role Phone Brinda Daija ROBLES Primary Care Provider [phone] Ely Darling PharmD Unavailable [phone] Reason for Visit * Reason Comments Med Refill Encounter Details Date Type Department Care Team ([facility] st Contact Info) Description 01/24/2023 Refill [facility] [address] [place] [address] Daphney Roca MD [address] [place] [address] Social History Tobacco Use Types Packs/Day Years [...] Care Team (Late st Contact Info) Description 10/28/2024 9:45 AM EDT Office Visit [facility] [address] [place] [address] 03/12/2025 2:30 PM EST Office Visit [facility] [address] [place], [place] [id number] Yordan, Arielle, OD [address] [place] [address] documented as of this encounter Goals Goal Patient Goal Type Associated Problems Recent Progress Patient-Stated? Author Blood Pressure < 140/90 Blood Pressure 117/87(2024 9:58 AM EDT) No Dellogono, Lopez, PharmD Hemoglobin A1c < 7 Result Component 5.9( 2:18 PM EDT) No Dellogono, Lopez, PharmD Record your blood sugar as directed Result Component No Puia, Ely, PharmD documented as of this encounter Visit Diagnoses Not on filedocumented in this encounter Additional Health Concerns Assessment Noted Time PHQ-9 Depression Total Score: 24 023 8:59 AM EDT documented as of this encounter Care Teams Honing Machine Set Up Operator Relationship Specialty Start Date End Date Daija Parry DO [address] [place] [address] PCP - General Family Medicine 12/22/14 Ely Darling, PharmD [address] [place] [id number] Pharmacist Internal Medicine 11/22/22 documented as of this encounter
--- OUTSIDE RECORDS SUMMARY | 2024-10-13 15:22 | XMS_ITS | Clinical Summary ---
Author Organization [facility] Address [address] [place] [address] Phone Care Team Providers Care Event Promoter Name Role Phone Daija Parry DO Primary [...] Do not crush or chew. Active pancrelipase, Nfd-Jmbo-Eklv, (Creon) 85658-25482 units capsule Take 1 capsule by mouth [...] 03/09/2022, Additional history exists Influenza Vaccine (#1) 2024 3, 01/20/2022, 02/17/2021, Additional history exists Pneumococcal Vaccine: [...] 9.6 8.7 - 10.7 mg/dL eGFR Non-Afr Iranian 100 Total Bilirubin 0.4 MG/DL Bilirubin Direct [...] Most Recently Relevant to Health Maintenance Insurance [facility] One [employer] Dual SNP ([id number]) [facility] One [employer] Dual SNP ([id number]) Care Teams Event Promoter Relationship Specialty Start Date End Date Daija Parry DO PCP - General Family Medicine 03/13/22
--- OUTSIDE RECORDS SUMMARY | 2024-10-13 15:22 | XMS_ITS | Data Portability ---
Author Organization [employer] [facility] Address [address] [place] [address] Care Team Providers Care C Engineer Name Role Phone [facility] Primary Care Provider BRANDY SOARES Primary Care Provider [facility] OTHER Assessment Encounter Date Assessment Date Assessment LastModified by Organization Details LastModified Time 05/02/2024 05/02/2024 I provided real -time medical direction via phone for this encounter, and was available for additional phone based assistance as needed. I have reviewed and agree with the Assessment and Plan as documented by the Summer Nanny. We discussed the diagnostic uncertainty of home [...] call 911- she verbalized understanding of instruction [email or web address] Not available 05/02/2024 15:50:45 Plan of Treatment Reminders Order Date Submit Date Provider Last Modified By Organization Details Last Modified Time Details Appointments None recorded. Lab rapid SARS CoV 2 Ag, QL IA, respiratory specimen 2024 025 [email or web address] 0 [facility], [address] [place] [address], [id number] 5 12:56:28 rapid flu (A+B) 2024 025 [email or web address] 0 [facility], [address] [place] [address], [phone] 5 12:56:28 glucose, fingerstick , blood 2024 025 [email or web address] 0 [facility], [address] [place] [address], [phone] 12:57:15 Referral None recorded. Procedures None recorded. Surgeries None recorded. Imaging None recorded. Medication Orders azithromyci n 250 mg tablet 2024 025 [email or web address] 0 [facility], [address] [place] [address], [id number], 5 12:56:28 azithromyci n 250 mg tablet 2024 025 [facility], [address] [place] [address], [id number], 5 17:00:20 ondansetron 4 mg disintegrat ing tablet 2024 025 [email or web address] 0 [facility], [address] [place] [address], [id number], 5 12:56:28 ondansetron 4 mg disintegrat ing tablet 2024 025 [facility], [address] [place] [address], [id number], 5 16:49:42 benzonatate 200 mg capsule 2024 025 [facility], [address] [place] [address], [id number], 5 16:20:18 albuterol sulfate HFA 90 mcg/actuati on aerosol inhaler 2024 025 [facility], [address] [place] [address], [id number], 5 17:00:19 Patient TargetsNo targets recorded. Patient InstructionsNo instructions recorded. Reason for Referral None Reported. Results Created Date Observation Date Name Description Value Unit Range Abnormal Flag Note LastModifiedBy Organization Detail LastModifiedTime 05/02/1905/02/2024 gluco se, finge rstic k, blood Blood Glucose: mg/dl 136 Not Available [facility] [address] [place] [address], [phone] 05/02/2024 12:56:44 05/02/1905/02/2024 rapid flu (A+B) Flu negati ve Not Available [facility] [address] [place] [address], [phone] 05/02/2024 12:52:10 05/02/1905/02/2024 rapid SARS CoV 2 Ag, QL IA, respi rator y speci men rapid SARS CoV 2 Ag, QL IA, respiratory specimen negati ve Not Available [facility] [address] [place] [address], [phone] 05/02/2024 12:52:05 Result Notes None recorded. Medical Equipment None Reported. Allergies Allergen ID Allergen Name Allergen Category Reaction Reaction Severity Criticality Documentation Date Start Date Code Code System Note Provider Name and Address Organization Details Recorded Time 90779 cefuroxim e Not available Not available Not available Not available 05/02/2024 2194 RxNorm Not Available [facility]20 Medications Name Sig Start Date Stop Date Status Note LastModified by Organization Details LastModified Time Prescription - Renewal active Not Available Not Available No t Available medbox status USE DIRECTED active Not Available Not Available No t Available cyclobenzapr ine 10 mg tablet TAKE 1 TABLET BY MOUTH AT BEDTIME NEEDED FOR MUSCLE SPASMS OR FOR PAIN active Not Available Not Available [...] Available Not Available No t Available gabapentin 600 mg tablet TAKE 1 TABLET BY MOUTH THREE TIMES DAILY IN THE MORNING, EVENING, AND BEDTIME active Not Available Not Available Not Available paroxetine 10 mg tablet TAKE 1 TABLET BY [...] azithromycin 250 mg tablet TAKE 1 TABLET BY MOUTH ONCE DAILY UNTIL FINISHED active Not Available Not Available No t Available ibuprofen 800 mg tablet TAKE 1 TABLET BY MOUTH THREE TIMES DAILY WITH FOOD NEEDED FOR PAIN active Not Available Not Available No t Available tizanidine 4 mg tablet TAKE 1 TABLET BY MOUTH EVERY 6 TO 8 HOURS NEEDED. DO NOT EXCEED 3 DOSES IN 24 HOURS active Not Available Not Available No t Available benzonatate 200 mg capsule TAKE 1 CAPSULE BY MOUTH THREE TIMES DAILY NEEDED FOR COUGH active Not Available Not Available No t Available Nystop 100,000 unit/gram topical powder APPLY TOPICALLY TO THE AFFECTED AREA(S) 2 OR 3 TIMES DAILY active Not Available Not Available No t Available ondansetron HCl 4 mg tablet TAKE 1 TABLET BY MOUTH THREE TIMES DAILY NEEDED FOR NAUSEA AND VOMITING active Not Available Not Available No t Available famotidine 40 mg tablet TAKE 1 TABLET BY MOUTH AT BEDTIME active Not Available Not Available No t Available clonazepam 0.5 mg tablet TAKE 1 TABLET BY MOUTH THREE TIMES DAILY NEEDED FOR SEVERE ANXIETY active Not Available Not Available No t [...] Not Available Not Available No t Available sulfamethoxa zole 800 mg-trimethop rim 160 mg tablet TAKE 1 TABLET BY MOUTH TWICE DAILY FOR 5 DAYS, START 2 DAYS BEFORE PROCEDURE, TAKE DAY OF PROCEDURE, AND TAKE TWO DAYS AFTER PROCEDURE active Not Available Not Available No t Available tramadol 50 mg tablet TAKE 1 TABLET BY MOUTH EVERY 6 HOURS NEEDED FOR SEVERE PAIN FOR UP TO 28 DAYS active Not Available Not Available No t Available butalbital-a cetaminophen -caffeine 50 mg-325 mg-40 [...] 6 HOURS NEEDED FOR PAIN OR FEVER active Not Available Not Available No t Available baclofen 20 mg tablet TAKE 1 TABLET BY MOUTH THREE TIMES DAILY active Not Available Not Available Not Available levothyroxin e 75 mcg tablet TAKE 1 TABLET BY MOUTH EVERY MORNING WITH 200 mcg active Not Available Not Available No t Available verapamil ER 180 mg 24 hr capsule,exte nded release TAKE 2 CAPSULES BY MOUTH ONCE DAILY IN THE MORNING WITH FOOD active Not Available Not Available No t Available hydrocortiso ne 2.5 % topical cream with perineal applicator INSERT 1 APPLICATORF UL RECTALLY EVERY 8 TO 12 HOURS DIRECTED active Not Available Not Available No t Available alosetron 1 mg tablet TAKE 1 TABLET BY MOUTH [...] Not Available Not Available No t Available paroxetine 30 mg tablet TAKE 1 TABLET BY MOUTH EVERY MORNING active Not Available Not Available No t Available paroxetine 20 mg tablet TAKE 1 TABLET BY MOUTH EVERY MORNING active Not Available Not Available No t Available hydralazine 100 mg tablet TAKE 1 TABLET BY [...] Not Available Not Available No t Available triamcinolon e acetonide 55 mcg nasal spray aerosol INSTILL 2 SPRAYS IN EACH NOSTRIL ONCE DAILY AT BEDTIME active Not Available Not Available N ot Available petrolatum topical ointment APPLY TO THE AFFECTED AREA(S) TWICE DAILY NEEDED active Not Available Not [...] TABLET BY MOUTH EVERY MORNING BEFORE BREAKFAST active Not Available Not Available No t Available bisacodyl 5 mg tablet,delay ed release TAKE 2 TABLETS BY MOUTH TWICE DAILY THE DAY BEFORE COLONOSCOPY AT NOON AND AT 5 IN THE EVENING WITH A FULL GLASS OF WATER active Not Available Not Available No t [...] TABLET BY MOUTH EVERY DAY NEEDED SWELLING active Not Available Not Available No t Available ergocalcifer ol (vitamin D2) 1,250 mcg (50,000 unit) capsule TAKE 1 CAPSULE BY MOUTH ONCE WEEKLY ON Sunday active Not Available Not Available No t Available zolpidem 10 mg tablet TAKE 1 TABLET BY MOUTH AT BEDTIME DIRECTED active Not Available Not Available No t Available ondansetron 4 mg disintegrati ng tablet Take [...] Not Available Not Available No t Available loratadine 10 mg tablet TAKE 1 TABLET BY [...] Available metocloprami de 10 mg tablet TAKE 2 TABLETS BY MOUTH FOUR TIMES DAILY active Not Available Not Available Not Available verapamil ER 240 mg 24 hr capsule,exte nded release TAKE 1 CAPSULE BY MOUTH EVERY MORNING active Not Available Not Available No t Available nabumetone 500 mg tablet TAKE 1 TABLET BY MOUTH TWICE DAILY active Not Available Not Available No t Available Ventolin HFA 90 mcg/actuatio n aerosol inhaler INHALE 2 PUFFS BY MOUTH FOUR TIMES DAILY DIRECTED active Not Available Not Available Not Available verapamil ER 120 mg 24 hr capsule,exte nded release TAKE 1 CAPSULE BY MOUTH EVERY EVENING active Not Available Not Available No t Available escitalopram 20 mg tablet TAKE 1 TABLET BY MOUTH AT BEDTIME active Not Available Not Available No t Available Alcohol Prep Pads USE TWICE DAILY DIRECTED active Not Available Not Available No t Available alosetron 0.5 mg tablet TAKE 1 TABLET BY MOUTH TWICE DAILY active Not Available Not Available No t Available duloxetine 30 mg capsule,cody yed release TAKE 1 CAPSULE BY MOUTH EVERY MORNING active Not Available Not Available No t Available duloxetine 60 mg capsule,cody yed release TAKE 1 CAPSULE BY MOUTH EVERY MORNING active Not Available Not Available No t Available solifenacin 5 mg tablet TAKE 2 TABLETS BY MOUTH ONCE DAILY IN THE MORNING active Not Available Not Available Not Available peg 3350-electro lytes 236 gram-22.74 gram-6.74 gram-5.86 gram solution MIX DIRECTED AND TAKE 240 ML EVERY 10 MINUTES UNTIL FECAL EFFLUENT IS CLEAR active Not Available Not Available No t Available FreeStyle Lite Strips USE TO TEST BLOOD SUGAR TWICE DAILY active Not Available Not Available Not Available FreeStyle [place]camore Lite kit USE DIRECTED TO TEST BLOOD SUGAR THREE TIMES DAILY active Not Available Not Available Not Available diclofenac 1 % topical gel APPLY TO THE AFFECTED AREA(S) 2 GRAM TOPICALLY TWICE DAILY active Not Available Not Available Not Available Minerin Creme topical APPLY TOPICALLY TO DRY SKIN TWICE DAILY NEEDED active Not Available Not [...] 50 mcg (2,000 unit) capsule TAKE 1 CAPSULE BY MOUTH EVERY MORNING active Not Available Not Available No t Available Myrbetriq 50 mg tablet,exten ded release TAKE 1 TABLET BY MOUTH EVERY MORNING active Not Available Not Available No t Available TRUEplus Lancets 33 gauge USE TO TEST BLOOD SUGAR TWICE DAILY active Not Available Not Available Not Available Jardiance 10 mg tablet TAKE 1 TABLET BY MOUTH EVERY MORNING active Not Available Not Available No t Available Trulicity 0.75 mg/0.5 mL subcutaneous pen injector INJECT ONE PEN (=0.75MG) SUBCUTANEOU SLY ONCE A WEEK DIRECTED active Not Available Not Available No t Available Asmanex HFA 100 mcg/actuatio n aerosol inhaler INHALE 2 PUFFS TWICE DAILY. RINSE MOUTH AFTER USING. active Not Available Not Available No t Available Arnuity Ellipta 200 mcg/actuatio n powder for inhalation INHALE 1 PUFF BY MOUTH EVERY DAY AT THE SAME TIME RINSE MOUTH AFTER USING active Not Available Not Available Not Available Viberzi 100 mg tablet TAKE 1 TABLET BY MOUTH TWICE DAILY active Not Available Not Available No t Available Viberzi 75 mg tablet active Not Available Not Available No t [...] Body temperature Body weight Heart rate Systolic And Diastolic Provider Name and Address Organization Details Last Updated DateTime 5 99 % 99 % 154.94 cm 16 /min 98.2 [degF] 400271. 84 g 83 /min 135/88 mm[Hg] Not Available [facility] - production 5 12:40:58 Date Recorded Oxygen saturation Oxygen saturation in Arterial blood by Pulse oximetry Respiratory rate Heart rate Body temperature Systolic And Diastolic Provider Name and Address Organization Details Last Updated DateTime 2 96 % 96 % 20 /min 77 /min 98.4 [degF] 160/94 mm[Hg] Not Available [facility] - production 14:45:50 Social History None recorded. Functional Status [...] [id number] Christofer Nielson MD Main - [facility] [address] [place] [phone] 02/02/2022 14:45:48 02/07/2022 15:12:38 Essential hypertension [id number] I10 Reports a history of hypertensi on, BP 160/90. Asymptomat ic other than mild headache. No signs or symptoms of hypertensi ve emergency. Plan for PCP follow-up for repeat check and titration of medication s as needed. [id number] Kiersten Grissom MD Main - [facility] [address] [place] [phone] 05/02/2024 12:40:52 05/02/2024 19:34:49 Upper respiratory infection [id number] J06.9 Likely bronchitis with negative COVID and [...] Recorded Advance Directives Directive None Recorded Payers Insurance Date Sequence Insurance Name Policy Number Policy Ba Covered Member ID [id number] Member ID Guarantor Name 08/12/2023 1 [facility] - DOS PRIOR TO 2022 - DUAL ELIGIBLE (MEDICARE REPLACEMENT/ADV ANTAGE - HMO) Shereen Cuellar [id number] Shereen Cuellar 05/02/2024 1 [facility] - DOS ON OR AFTER 2022 - DUAL ELIGIBLE - [employer] (MEDICARE REPLACEMENT/ADV ANTAGE - HMO) Shereen Cuellar [id number] Shereen Cuellar Notes Date Note Type Note Provider Name and Address Organization Details Recorded Time 02/02/2022 text/html HPI: Allergies: Cefuroxime Patient having elevated BP of 168/112 Hr 89. Pt currently on Varapamil [id number] daily and HCTz 25mg at night and [...] ................... ................... ................... ................... ................... ................... ........ Summer Nanny Note: Pt states she has been dealing with hypertension on and off for a long time now. Pt states she has a mild headache now and is also hypertensive. Pt states she took Tylenol with good relief. Pt states she just needed a visit to have her blood pressure checked. Pt found to be hypertensive. [facility] consulted. Red flags discussed ................... ................... ................... ................... ................... ................... ................... ........ Disposition: Fulfilled Christofer Nielson MD [address] [place] [address],[address], [place], [phone], [employer] 02/02/2022 16:18:00 05/02/2024 text/html CRC Nurse Triage Notes (Kelly Floyd - LONG): Reason For Request: Cough Chief Complaints: Cough PMH: Hypertension, COPD/Asthma, Fibromyalgia, Anxiety Disorder, Depression PMH Reviewed at 05/02/2024:43 Allergies Reviewed at 05/02/2024 - :43 Comments: Caller in to report member is reporting a productive cough and SOB. Did not elaborate on any other symptoms/complaints . hx of Asthma so does get SOB at times. Member has not tried anything OTC for symptoms Educated on response time and stated visit after 12pm Nishi ALVES Summer Nanny Organization Information for [facility] [employer] [employer] Name: [employer]. Address: [address] [place] [id number], Book Critic: Ken Dill MD CLIA No.: [id number] Summer Nanny POC Test Results from [facility] Rapid COVID antigen (12:25:58) COVID: - Rapid influenza antigen (12:25:58) Flu: - ................... ................... ................... ................... ................... ................... ................... ........ Summer Nanny Note From [facility]: [facility] makes pt contact a 48 YO F CC of cold like s/s for five days. [facility] obtains consent and uploads electronically. [facility] obtains vital signs and a negative [...] denies any sore throat or difficulty swallowing. [facility] contacts [facility] and explains above mentioned. [facility] prescribes azithromycin, ondansetron, benzoate, and a new mdi. PT is given two azithromycin tablets totaling 500mg, and 1 4mg ODT zofran which is given by [facility]. PT is to start antibiotics tomorrow and use the mdi 2 puffs four times a day. PT is explained if she develops a fever, severe sob, chest pain, or gets worse to call us back or go into the emergency department to be seen. Otherwise continue the prescribed medications and drink fluids and rest. PT understands [facility] clear. Pt allergy confirmed as cefuroxime ................... ................... ................... ................... ................... ................... ................... ........ [facility] Consulted: Kiersten Grissom ................... ................... ................... ................... ................... ................... ................... ........ Disposition: Fulfilled SEGMD: As above. Patient is complaining of post-tussive emesis- no diarrhea. Patient has Reglan but is requesting more Zofran. She has had no documented fever but has had chills. She reports being ill for 5 days Kiersten Grissom MD [address] [facility],[address], [place], [phone], [employer] 05/02/2024 15:52:47 OBGyn Episode No OBEpisode recorded.
== END 2024-10-13 15:27 | disposition home or self-care (01) ==
LOC: HO.HPS 14:51
PROVIDERS: PCP Family Medicine; Visit Provider Nurse Practitioner Family
DX: G47.33 Obstructive sleep apnea (adult) (pediatric) (principal); G47.34 Idiopathic sleep related nonobstructive alveolar hypoventilation; R40.0 Somnolence
CPT/HCPCS: 99214

== ENCOUNTER → 2024-10-13 14:50 | Outpatient (BNVA) | payer OTHER, SELFPAY | PROVIDERS: PCP Family Medicine; Visit Provider Nurse Practitioner Family | DX: G47.33 Obstructive sleep apnea (adult) (pediatric) (principal); G47.34 Idiopathic sleep related nonobstructive alveolar hypoventilation; R40.0 Somnolence; J45.909 Unspecified asthma, uncomplicated; E66.01 Morbid (severe) obesity due to excess calories; Z99.89 Dependence on other enabling machines and devices | CPT/HCPCS: 99212 ==

== ENCOUNTER → 2024-11-05 16:02 | Outpatient (BNVA) | payer OTHER, SELFPAY | PROVIDERS: PCP Family Medicine; Visit Provider Nurse Practitioner | DX: K58.0 Irritable bowel syndrome with diarrhea (principal); K31.84 Gastroparesis; D12.6 Benign neoplasm of colon, unspecified; K85.90 Acute pancreatitis without necrosis or infection, unspecified | CPT/HCPCS: 99212 ==

== ENCOUNTER 2024-11-21 14:47 | Outpatient (AMB) | payer OTHER, SELFPAY ==
--- NOTE | 2024-11-21 14:51 | A.OFFVIS_ITS ---
Intake Visit Reasons: botox- follow up Intake Note: Patient is present for Post -op Botox Urology Medication:SOLIFENACIN Antibiotic Allergy:NONE Blood Thinner:NONE TODAY'S PVR:0 mls Multifocal Button Generator Required: No Accompanied by: Self / Same As Patient Allergies cefuroxime (From CEFTIN) Allergy (Severe, Verified 11/21/24 15:02) HIVES HPI Comments Details: Shereen is a pleasant 47 year old female patient of Dr. Parry. She has a past medical history of allergic rhinitis, diabetes, arthritis, chronic pain syndrome, lumbar disc degeneration, fibromyalgia, hypothyroidism, interstitial cystitis, migraines, morbid obesity, obstructive sleep apnea, restrictive lung disease, and spinal stenosis. Botox in February Botox is fading Would like repeat Prefers operating room Urinary urgency and frequency Prior therapy with Myrbetriq that reported to not be working Does feel improvement with 5 mg [facility] - NAD Low PVR Cystoscopy performed - Minimal descensus on coughing at cystoscopy, Normal bladder PFSH Medical History Epicondylitis, lateral Nocturnal hypoxemia Dyspnea Hemorrhoids Pulmonary arteriovenous malformation Morbid obesity with BMI of 50.0-59.9, adult Recent bereavement Depression Morning headache Daytime somnolence Diabetes Asthma Pre-op examination Family history of colon cancer Greater trochanteric bursitis of left hip Greater trochanteric bursitis of right hip Hirsutism Varicose veins with pain Restless leg syndrome Congenital pulmonary arteriovenous malformation Fungal infection of skin of abdomen Diabetes mellitus Urinary frequency Patellofemoral arthralgia of right knee Obstructive sleep apnea Hypothyroidism Hypertension Urinary retention Left forearm pain Interstitial cystitis Spinal stenosis of lumbar region Chronic pain syndrome Disc degeneration, lumbar Spondylosis, lumbar, with myelopathy Morbid obesity due to excess calories Arthritis Fibromyalgia Migraines Hypothyroid Restrictive lung disease Allergic rhinitis AISHWARYA on CPAP Nausea and vomiting GERD (gastroesophageal reflux disease) Surgical History Hx of spinal surgery Hx of cystoscopy Hx of colonoscopy History of esophagogastroduodenoscopy (EGD) Family History Father Alcoholism Mother Leukemia Maternal Aunt Breast cancer Sister Depression Vertigo Family/Other Heart problem Diabetes Cancer Brother Atherosclerotic cardiovascular disease Cardiomegaly Social History Household Members: Family Household Members Other:: Niece and great nieces and nephews Housing: Apartment Are you a primary palliative care coordinator to a significant other at home: No Do you presently have visiting nurse or other home services: No 75 years or older and lives alone: No Alcohol intake: never Comment: NONE Patient Tobacco Use Status: Never used Tobacco e-Cigarette/Vaping Use: Never Used Second Hand Smoke Exposure: No Substance Use Type: Marijuana service: No Current occupational status: disabled 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 Sexual orientation: Decline to Answer Review of Systems Const Denies chills and Denies fever(s) Card Reports no additional complaints and Denies syncope Resp Denies cough GI Denies abdominal pain and Denies heartburn Reports as per HPI and Denies change in libido Neuro Denies syncope Psych Denies change in libido Endo Denies change in libido Physical Exam Const General: cooperative, healthy appearing, comfortable and no acute distress Orientation/consciousness: patient oriented x3 HEENT Face and sinus: Yes normal facial exam Mouth: moist mucous membranes Neck Neck: Yes normal visual inspection, Yes full ROM and Yes trachea midline Chest Chest palpation & inspection: normal inspection of the chest Resp Effort & Inspection: normal respiratory effort, able to speak in complete sentences and no respiratory distress GI Inspection: Yes normal to inspection Back/Spine/Pelvis Cervical Spine: normal cervical lordosis Thoracic/Lumbar Spine: thoracic and lumbar spine normal to inspection Skin General skin exam: no rashes or lesions noted Neuro General: patient oriented x3, gait normal, tone normal and moves all extremities Extrem General: Yes normal to inspection and Yes capillary refill normal Assessment & Plan Assessment & Plan (1) Interstitial cystitis: Code(s): N30.10 - Interstitial cystitis (chronic) without hematuria Category: Medical (2) Overactive bladder: Code(s): N32.81 - Overactive bladder Category: Medical Plan Bladder Botox Risks, benefits and alternatives to therapy were discussed. These include but are not limited to infection, bleeding, damage to local organs and tissues, need for further interventions. Anesthetic risks regarding cardiac arrhythmia, blood clots, and potential mortality were discussed. The patient understands the typical recovery time and the outpatient nature of the procedure. After consideration of these risks the patient gives full informed consent and they wish to move ahead with the procedure. Medications: New levofloxacin Take medication daily 2 days prior to procedure, day of procedure and 2 days after 250 mg PO DAILY 5 tabs 0RF 5 days N32.81 - Overactive bladder Patient Instructions: This note is constructed using voice recognition software. While every effort has been made to ensure accuracy nocturnist errors may have been included. Imaging studies, laboratory and physical exam results were discussed and reviewed in detail. No major barriers to patient understanding were identified. An opportunity to ask questions regarding the treatment plan was provided. All questions were answered. The patient expressed understanding and agreement with the above treatment plan. The patient is aware they should contact our office by phone for worsening of their current condition or the appearance of new urologic symptoms. Compliance is encouraged with any medications and followup testing that is ordered. It is a privilege to participate in the urologic care of your patient. If you have any questions or concerns regarding treatment for the above conditions, or other urologic issues, please do not hesitate to contact me. The office telephone contact is [phone]. Sincerely, Dr Wilfred Simental MD, [facility] - Urology Compassionate Specialist Care for the Genitourinary System Coding Level of Care Code Est Pt Level 4 (00491) Diagnoses Interstitial cystitis N30.10 Overactive bladder N32.81
== END 2024-11-21 15:24 | disposition home or self-care (01) ==
LOC: HO.HUSH 14:48
PROVIDERS: PCP Family Medicine; Visit Provider Urology
DX: N30.10 Interstitial cystitis (chronic) without hematuria (principal); N32.81 Overactive bladder; Z13.9 Encounter for screening, unspecified
CPT/HCPCS: 99214

== ENCOUNTER → 2024-11-21 14:47 | Outpatient (BNVA) | payer OTHER, SELFPAY | PROVIDERS: PCP Family Medicine; Visit Provider Urology | DX: N32.81 Overactive bladder (principal); N30.10 Interstitial cystitis (chronic) without hematuria | CPT/HCPCS: 51798; 81003; 99212 ==

== ENCOUNTER 2024-12-25 12:23 | Outpatient (REF) | payer OTHER, SELFPAY ==
[2024-12-25 15:30] LABS: MANUAL DIFF FLAG NO
[2024-12-25 17:03] LABS: Hematocrit 39.3 % (37.0-47.0); Hemoglobin 13.8 g/dl (12.0-16.0); Imm Gran Abs Auto 0.03 X10*3/uL (0.00-0.03); Imm Gran Pct Auto 0.3 % (0.0-0.4); Lymphocytes Absolute Auto 1.8 X10*3/uL (1.2-4.9); Mean Corpuscular HGB Conc 35.1 g/dl (31.0-35.0); Mean Corpuscular Hemoglobin 31.0 pg (27.0-33.0); Mean Corpuscular Volume 88.3 fL (80.0-98.0); NRBC Abs Auto 0.000 X10*3/uL (0.0-0.012); NRBC Pct Auto 0.0 /100WBC (0.0-0.2); Platelet Count 275 X10*3/uL (160-400); Red Blood Count 4.45 X10*6/uL (4.20-5.50); White Blood Count 9.1 X10*3/uL (4.8-10.8)
[2024-12-25 17:41] LABS: Alanine Aminotransferase 24 U/L (0-31); Albumin Level 4.4 g/dL (3.5-5.0); Alkaline Phosphatase 65 U/L (39-117); Amylase 49 U/L (28-100); Anion Gap 11 (12-20); Aspartate Amino Transferase 23 U/L (5-31); Blood Urea Nitrogen 11 mg/dL (9-16); Calcium 9.6 mg/dL (8.4-10.2); Carbon Dioxide 27 mmol/L (22-29); Chloride 106 mmol/L (96-108); Estimated Glomerular Filt Rate > 60; Lipase 21 U/L (8-78); Potassium 4.5 mmol/L (3.3-5.1); Sodium 139 mmol/L (135-145); Total Protein 7.8 g/dL (6.5-8.0)
== END 2024-12-25 12:24 | disposition home or self-care (01) ==
LOC: HO.LAB 12:23
PROVIDERS: PCP Family Medicine; Visit Provider Nurse Practitioner
DX: K85.90 Acute pancreatitis without necrosis or infection, unspecified (principal); K58.0 Irritable bowel syndrome with diarrhea; K31.84 Gastroparesis; D12.6 Benign neoplasm of colon, unspecified; R10.10 Upper abdominal pain, unspecified
CPT/HCPCS: 36415; 80053; 82150; 83690; 85025; 99212

== ENCOUNTER 2024-12-25 12:23 | Outpatient (AMB) | payer OTHER, SELFPAY ==
--- NOTE | 2024-12-25 12:29 | A.OFFVIS_ITS ---
Vital Signs 12/25/24 12:47 Height 5 ft 1 in Weight 285 lb BMI 53.8 BP 134/76 Blood Pressure Location Rt brachial Position Sitting Pulse 84 Pulse Source Pulse Oximeter Pulse Oximetry (%) 96 Oxygen Delivery Method Room Air Intake Visit Reasons: f/u gastroparesis Intake Note: Est pt for mgmt of gastroparesis. Multiple labs outstanding. CC; Pt states that she has stopped the dicyclomine as she did not feel it was effective and prefers to only attempt use of one form of Rx therapy for her sx at this time. Pt states that she has been doing OK since last visit but has been struggling with the loss of her brother. Pt is agreeable to getting her bloodwork done today. Magazine Worker Required: No Accompanied by: Self / Same As Patient Allergies cefuroxime (From CEFTIN) Allergy (Severe, Verified 11/21/24 15:02) HIVES HPI HPI f/u gastroparesis: Details: ssessment & Plan (1) Upper abdominal pain: Code(s): R10.10 - Upper abdominal pain, unspecified Category: Medical (2) Gastroparesis: Code(s): K31.84 - Gastroparesis Category: Medical (3) Pancreatitis: Code(s): K85.90 - Acute pancreatitis without necrosis or infection, unspecified Category: Medical (4) Irritable bowel syndrome with diarrhea: Code(s): K58.0 - Irritable bowel syndrome with diarrhea Category: Medical Plan Her total GI regimen consists of Lotronex 1 mg twice a day, famotidine 40 mg at night, Creon 2 caps twice a day, Reglan 20 mg 3 times a day, pantoprazole 40 mg twice a day. WIth a medication review, she has been out of the Lotronex for a while. WE did a PA in May of 2023, but this likely . I wanted to increase it from 0.5mg to 1mg bid. Sending to my staff. She is having upper abdominal pain after eating, with associated cramping and post prandial diarrhea. The bentyl did not control this well. ROV 6 weeks. Orders: Orders Complete Blood Count Auto Diff Today R10.10 - Upper abdominal pain, unspecified Comprehensive Met. Panel Today R10.10 - Upper abdominal pain, unspecified Amylase Today R10.10 - Upper abdominal pain, unspecified Lipase Today R10.10 - Upper abdominal pain, unspecified Medications: Changed From metoclopramide HCl 10 mg PO TIDAC 90 days 270 tabs 0RF To metoclopramide HCl 20 mg (2 x 10 mg) PO TIDAC 540 tabs 0RF 90 days Refilled pantoprazole 40 mg PO .qamac 30 tabs 6RF [id number] 24,000-76,000 -120,000 unit (Creon) 2 caps PO QID 240 caps 6RF alosetron (Lotronex) 1 mg PO BID 60 tabs 6RF K58.0 - Irritable bowel syndrome with diarrhea famotidine 40 mg PO BEDTIME 30 tabs 0RF 30 days nOT OBTAINED [facility] Medical History Epicondylitis, lateral Nocturnal hypoxemia Dyspnea Hemorrhoids Pulmonary arteriovenous malformation Morbid obesity with BMI of 50.0-59.9, adult Recent bereavement Depression Morning headache Daytime somnolence Diabetes Asthma Pre-op examination Family history of colon cancer Greater trochanteric bursitis of left hip Greater trochanteric bursitis of right hip Hirsutism Varicose veins with pain Restless leg syndrome Congenital pulmonary arteriovenous malformation Fungal infection of skin of abdomen Diabetes mellitus Urinary frequency Patellofemoral arthralgia of right knee Obstructive sleep apnea Hypothyroidism Hypertension Urinary retention Left forearm pain Interstitial cystitis Spinal stenosis of lumbar region Chronic pain syndrome Disc degeneration, lumbar Spondylosis, lumbar, with myelopathy Morbid obesity due to excess calories Arthritis Fibromyalgia Migraines Hypothyroid Restrictive lung disease Allergic rhinitis AISHWARYA on CPAP Nausea and vomiting GERD (gastroesophageal reflux disease) Surgical History Hx of spinal surgery Hx of cystoscopy Hx of colonoscopy History of esophagogastroduodenoscopy (EGD) Family History Father Alcoholism Mother Leukemia Maternal Aunt Breast cancer Sister Depression Vertigo Family/Other Heart problem Diabetes Cancer Brother Atherosclerotic cardiovascular disease Cardiomegaly Social History Household Members: Family Household Members Other:: Niece and great nieces and nephews Housing: Apartment Are you a primary managed care director to a significant other at home: No Do you presently have visiting nurse or other home services: No 75 years or older and lives alone: No Alcohol intake: never Comment: NONE Patient Tobacco Use Status: Never used Tobacco e-Cigarette/Vaping Use: Never Used Second Hand Smoke Exposure: No Substance Use Type: Marijuana service: No Current occupational status: disabled 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 Sexual orientation: Decline to Answer Review of Systems Const Denies fatigue, Denies fever(s), Denies night sweats, Denies poor appetite and Denies weight loss ENT Reports Normal hearing present, Denies dental pain, Denies dysphagia, Denies hearing loss, Denies mouth pain, Denies odynophagia, Denies throat swelling, Denies tongue swelling and Reports other (Dentition adequate) Card Reports no additional complaints Resp Reports no additional complaints GI Details: Reports abdominal pain, Denies melena, Reports bloating, Denies hematochezia, Denies constipation, Denies GI cramping, Denies dysphagia, Denies excessive flatus, Denies early satiety, Reports dyspepsia, Reports heartburn, Reports diarrhea, Reports nausea, Denies odynophagia, Denies vomiting and Denies hematemesis Musc Reports abnormal gait, Reports myalgias and Reports arthralgias Skin/Breast Denies pruritus, Denies lesions, Denies rash and Denies jaundice Neuro Reports Normal hearing present, Denies Abnormal speech present and Reports abnormal gait Psych Reports anxiety, Reports depression, Denies homicidal ideation and Denies suicidal ideation Endo Denies fatigue Aller/Immun Denies throat swelling and Denies tongue swelling Physical Exam Vital Signs: Last Vital Signs Pulse 84 12/25/24 12:47 BP 134/76 12/25/24 12:47 Pulse Ox 96 12/25/24 12:47 Oxygen Delivery Method Room Air 12/25/24 12:47 BMI result Body Mass Index 53.8 Const General: cooperative, no acute distress, well developed and well groomed Nutritional Appearance: well nourished and obese Orientation/consciousness: oriented to person, oriented to place and oriented to time Limitations: No language barrier and ambulation with walker HEENT Head: Yes normocephalic and Yes atraumatic Eyes General: appearance normal, both eyes and all related structures Pupils: Equal, round and reactive pupils present Neck Neck: Yes normal visual inspection and Yes no lymphadenopathy Thyroid: Thyroid normal Resp Effort & Inspection: normal respiratory effort and able to speak in complete sentences Auscultation: clear to auscultation bilaterally Cardio Rate: regular rate Rhythm: regular rhythm Heart sounds: Normal, physiologic split S2 sound present Peripheral pulses: radial pulses present and posterior tibial pulses present GI Inspection: No distended, Yes Abdominal panniculus present and Yes obesity Palpation (GI): Soft to palpation, nontender, no guarding, not rigid and No hepatosplenomegaly present Percussion: Yes normal to percussion Auscultation: normal bowel sounds Rectal Exam - Female: deferred Skin General skin exam: no rashes or lesions noted, turgor normal, skin not dry, no jaundice, No spider nevi and no striae Rashes: no rashes Nails: normal Neuro General: oriented to person, oriented to place and oriented to time Cranial nerves: Yes Equal, round and reactive pupils present and Yes Normal hearing present Speech: No Abnormal speech present Extrem General: Yes normal to inspection, No clubbing, No cyanosis and No edema Psych Appearance: grossly normal and well kempt Mental Status: mental status grossly normal Speech and movement: Normal speech and movement present Affect: normal affect Attitude: cooperative Thought process: Normal thought process present and not confabulating Thought content: Normal thought content present Insight: Fair insight present (Psych) and Limited insight present (Psych) Judgement: Fair judgement present (Psych) and Limited judgement present (Psych) Assessment & Plan Assessment & Plan (1) Gastroparesis: Code(s): K31.84 - Gastroparesis Category: Medical (2) Pancreatitis: Code(s): K85.90 - Acute pancreatitis without necrosis or infection, unspecified Category: Medical (3) Irritable bowel syndrome with diarrhea: Code(s): K58.0 - Irritable bowel syndrome with diarrhea Category: Medical (4) Tubular adenoma of colon: Comment: 2023 scope= poor prep in 1-2 years Code(s): D12.6 - Benign neoplasm of colon, unspecified Category: Medical (5) Acute diarrhea: Code(s): R19.7 - Diarrhea, unspecified Category: Medical (6) Upper abdominal pain: Code(s): R10.10 - Upper abdominal pain, unspecified Category: Medical Plan Her current GI regimen consists of Lotronex 1 mg twice a day, Creon twice a day, pantoprazole 40 mg in the morning and famotidine at night, Reglan 20 mg twice a day, Imodium and Zofran. - The patient is a 49-year-old female presenting with gastrointestinal symptoms related to stress, gastroparesis, and IBS diarrhea dominant. - Exacerbation of symptoms due to recent bereavement and stress-related events. - Reports significant gastrointestinal effects from stress, such as cramps, diarrhea episodes, and stomach pains. - Inconsistently taking Lotronex not understanding that she is supposed to use this twice a day every day to control her chronic diarrhea. She was using it p.r.n. and then intermittently use an Imodium. I want her to switch just to the Lotronex and hopefully we can get away from the Imodium as this can be a difficult combination to avoid small-bowel obstruction. -as with the Lotronex, she is not taking her Reglan scheduled confusing it with the Zofran and using as a PRN. I explained that this is treating her underlying gastroparesis so it is very important that she take this as scheduled and then she will have less nausea, dyspepsia and potentially less diarrhea once the GI motility is restored. Return office visit in 4 weeks to evaluate her response to correct medication administration. Coding Level of Care Code Est Pt Level 4 (03067) Diagnoses Gastroparesis K31.84 Pancreatitis K85.90 Irritable bowel syndrome with diarrhea K58.0 Tubular adenoma of colon D12.6 Acute diarrhea R19.7 Upper abdominal pain R10.10 Time Spent (min) 35
[2024-12-25 12:47] VITALS: BP 134/76; PULSE 84; O2SAT 96; BMI 53.8
--- OUTSIDE RECORDS SUMMARY | 2024-12-25 14:34 | XMS_ITS | Encounter Summary ---
Author Organization [employer] Address [address] [place] [address] [address] [place] [address] Care Team Providers Care Side Hemmer Name Role Phone Daija Parry DO Primary Care Provider [phone] Ely Darling PharmD Unavailable Reason for Visit * Reason Comments Med Refill Encounter Details Date Type Department Care Team (Late st Contact Info) Description 12/22/2024 Refill [facility] [address] [place] [address] Daija Parry DO [address] [place] [address] Essential hypertension; Hypothyroidism, unspecified type; Chronic bilateral low back pain with bilateral [...] Care Team (Late st Contact Info) Description 02/03/2025 9:45 AM EDT Office Visit [facility] [address] [place] [address] 03/12/2025 2:30 PM EST Office Visit [facility] [address] [place] [address] Yordan, Arielle, OD [address] [place] [address] documented as of this encounter Goals Goal Patient Goal Type Associated Problems Recent Progress Patient-Stated? Author Blood Pressure < 140/90 Blood Pressure 117/87(2024 9:58 AM EDT) No Lopez Marroquin, PharmD Hemoglobin A1c < 7 Result Component 5.9( 2:18 PM EDT) No Lopez Marroquin, PharmD Record your blood sugar as directed Result Component No Ely Darling PharmD documented as of this encounter Visit Diagnoses Diagnosis Essential hypertension Unspecified essential hypertension Hypothyroidism, unspecified type Chronic bilateral low back pain with bilateral sciatica documented in this encounter Additional Health Concerns Assessment Noted Time PHQ-9 Depression Total Score: 22 025 3:28 PM EDT documented as of this encounter Care Teams Side Hemmer Relationship Specialty Start Date End Date Daija Parry DO [address] [place] [address] PCP - General Family Medicine 12/22/14 Ely Darling PharmD [address] [place] [address] Pharmacist Internal Medicine 11/22/22 documented as of this encounter
--- OUTSIDE RECORDS SUMMARY | 2024-12-25 14:34 | XMS_ITS | Encounter Summary ---
Author Organization [employer] Address [address] [place] [address] [address] [place] [address] Care Team Providers Care Master Coastal Waters Name Role Phone Daija Parry DO Primary Care Provider Lopez Marroquin PharmD Unavailable Unavail able Ely Darling PharmD Unavailable [phone] Reason for Visit * Reason Onset Date Comments Appointment Request 06/27/2022 Encounter Details Date Type Department Care Team (Late st Contact Info) Description 06/27/2022 Telephone [facility] [address] [place] [address] Daija Parry DO [address] [place] [address] Appointment Request Social History Tobacco Use Types [...] encounter Miscellaneous Notes * Telephone Encounter - Annierajesh Linto - 06/30/2022 10:02 AM EDT T/C to pt regarding message below. No answer LVM that no appt available at this time that she is zeyad recall list. * Telephone Encounter - Lesley Martinez - 06/27/2022 3:08 PM EDT Tc from pt requesting to r/s appt for 06/27/2022 Office visit extended. Binitrotoluene Operator tried booking but noavailable spaces. Please contact pt at [phone] documented in this encounter Plan of Treatment Upcoming Encounters Date Type Department Care Team (Late st Contact Info) Description 02/03/2025 9:45 AM EDT Office Visit [facility] [address] [place] [address] 03/12/2025 2:30 PM EST Office Visit [facility] [address] [place] [address] Yordan, Arielle, OD [address] [place] [address] documented as of this encounter Goals Goal Patient Goal Type Associated Problems Recent Progress Patient-Stated? Author Blood Pressure < 140/90 Blood Pressure 117/87(2024 9:58 AM EDT) No Dellogono, Lopez, PharmD Hemoglobin A1c < 7 Result Component 5.9( 2:18 PM EDT) No Dellogono, Lopez, PharmD documented as of this encounter Visit Diagnoses Not on filedocumented in this encounter Additional Health Concerns Assessment Noted Time PHQ-9 Depression Total Score: 24 023 11:12 AM EST documented as of this encounter Care Teams Master [place]al Waters Relationship Specialty Start Date End Date Daija Parry DO [address] [place] [address] PCP - General Family Medicine 12/22/14 Dellogono, Lopez, PharmD [address] [place] [address] Pharmacist Internal Medicine 06/25/22 11/22/22 Ely Darling, AugustoD [address] [place] [address] Pharmacist Internal Medicine 11/22/22 documented as of this encounter
--- OUTSIDE RECORDS SUMMARY | 2024-12-25 14:34 | XMS_ITS | Encounter Summary ---
Author Organization [employer] Address [address] [facility] [address] [place] [address] Care Team Providers Care Floor Tiling Professional Name Role Phone Daija Parry DO Primary Care Provider Ely Darling PharmD Unavailable Reason for Visit * Reason Comments Med Refill Encounter Details Date Type Department Care Team (Late st Contact Info) Description 09/30/2023 Refill [facility] [address] [place], [place] [phone] Daija Parry DO [address] [facility] [place] [address] Pain Social History Tobacco Use Types Packs/Day [...] Description 02/03/2025 9:45 AM EDT Office Visit [facility] [address] [place] [address] 03/12/2025 2:30 PM EST Office Visit [facility] [address] [place] [address] Arielle Farr, OD [address] [place] [address] documented as of this encounter Goals Goal Patient Goal Type Associated Problems Recent Progress Patient-Stated? Author Blood Pressure < 140/90 Blood Pressure 117/87(2024 9:58 AM EDT) No DellogLopez urena, PharmD Hemoglobin A1c < 7 Result Component 5.9( 2:18 PM EDT) No Dellogono Lopez, PharmD Record your blood sugar as directed Result Component No Ely Darling PharmD documented as of this encounter Visit Diagnoses Diagnosis Pain Generalized pain documented in this encounter Additional Health Concerns Assessment Noted Time PHQ-9 Depression Total Score: 25 024 12:17 PM EDT documented as of this encounter Care Teams Floor Tiling Professional Relationship Specialty Start Date End Date Daija Parry DO [address] [place] [address] PCP - General Family Medicine 12/22/14 Ely Darling PharmD [address] [place] [address] Pharmacist Internal Medicine 11/22/22 documented as of this encounter
--- OUTSIDE RECORDS SUMMARY | 2024-12-25 14:34 | XMS_ITS | Encounter Summary ---
Author Organization [employer] Address [address] [place] [address] 7t [place] [address] Care Team Providers Care Transformer Molder Name Role Phone KianaDaija murguia Primary Care Provider Ely Darling PharmD Unavailable [phone] Reason for Visit * Reason Comments Med Refill Encounter Details Date Type Department Care Team (Late Contact Info) Description 12/16/2022 Refill [facility] MEDICINE [address] [place] [address] Daphney Roca MD [address] [place] [address] Mild persistent asthma, unspecified whether complicated Social [...] Department Care Team (Late Contact Info) Description 02/03/2025 9:45 AM EDT Office Visit [facility] MEDICINE [address] [place], [place] [phone] 03/12/2025 2:30 PM EST Office Visit [facility] OPTOMETRY [address] [place], [place] [phone] Arielle Farr, OD [address] [place] [address] documented as of this encounter Goals Goal [...] documented as of this encounter Care Teams Transformer Molder Relationship Specialty Start Date End Date Daija Parry DO [address] [place] [address] PCP - General Family Medicine 12/22/14 Ely Darling PharmD [address] [place] [address] Pharmacist Internal Medicine 11/22/22 documented as of this encounter
--- OUTSIDE RECORDS SUMMARY | 2024-12-25 14:34 | XMS_ITS | Encounter Summary ---
Author Organization [employer] Address [address] [place] [address] 7t [place] [address] Care Team Providers Care Assisted Living Manager Name Role Phone Daija Parry DO Primary Care Provider Ely Darling PharmD Unavailable Reason for Visit * Reason Onset Date Comments Nurse Triage 10/02/2024 Encounter Details Date Type Department Care Team ([facility] st Contact Info) Description 10/02/2024 Telephone [facility] MEDICINE [address] [place], [place] [phone] Daija Parry DO [address] [place] [address] Nurse Triage Social History Tobacco Use Types [...] encounter Miscellaneous Notes * Telephone Encounter - Bianca Funez RN - 10/02/2024 1:52 PM EDT Call returned to Shereen Cuellar to triage below at [phone]. Reports having nausea, abd pain and diarrhea. Pt states very watery with green stools. Pt denies an new foods, recent med changes or use of abx. No sick contacts. Intermittent abd pain. Per pt upper abdominal pain. Pt taking pantoprazole with no relief. Pt advised of disposition, agrees to seek [facility] for exam as no sick on site availability on teams at time of call. Reviewed [facility] operating hours and that wait times vary.Reviewed homecare advise, ER precautions and reasons to call back. Protocol Used: Diarrhea (Adult) Protocol-Based Disposition: See in Office or Video Visit Today Positive Triage Question: * Abdominal pain (Exceptions: Pain clears completely with each passage of diarrhea stool, or symptoms similar to previously diagnosed irritable bowel syndrome.) * All higher-acuity triage questions were negative Care Advice Discussed: * Fluid Therapy During Mild to Moderate Diarrhea * Food and Nutrition During Mild to Moderate Diarrhea * Reasons To Call Back - Signs of dehydration occur (such as no urine over 12 hours, very dry mouth, lightheaded, etc.) - Moderate diarrhea lasts more than 2 days - You become worse * Telephone Encounter - Jania Drummond - 10/02/2024 1:46 PM EDT Symptoms: Nausea But No Vomiting, Diarrhea Outcome: Schedule an appointment to be seen within 24 hours Reason: Caller denied all higher acuity questions The caller accepted this outcome. Contact pt at [phone] documented in this encounter Plan of Treatment Upcoming Encounters Date Type Department Care Team (Late st Contact Info) Description 02/03/2025 9:45 AM EDT Office Visit [facility] MEDICINE [address] [place] [address] 03/12/2025 2:30 PM EST Office Visit [facility] OPTOMETRY [address] [place], [place] [phone] Arielle Farr, OD [address] [place] [address] documented as of this encounter Goals Goal Patient Goal Type Associated Problems Recent Progress Patient-Stated? Author Blood Pressure < 140/90 Blood Pressure 117/87(2024 9:58 AM EDT) No Dellogono, Lopez, PharmD Hemoglobin A1c < 7 Result Component 5.9( 2:18 PM EDT) No Dellogono, Lopez, PharmD Record your blood sugar as directed Result Component No PuiaRobbinEly, PharmD documented as of this encounter Visit Diagnoses Not on filedocumented in this encounter Additional Health Concerns Assessment Noted Time PHQ-9 Depression Total Score: 22 025 3:28 PM EDT documented as of this encounter Care Teams Assisted Living Manager Relationship Specialty Start Date End Date Daija Parry DO [address] [place] [address] PCP - General Family Medicine 12/22/14 Puia, Ely, PharmD [address] [place] [address] Pharmacist Internal Medicine 11/22/22 documented as of this encounter
--- OUTSIDE RECORDS SUMMARY | 2024-12-25 14:34 | XMS_ITS | Encounter Summary ---
Author Organization [employer] Address [address] [place] [address] 7t [place] [address] Care Team Providers Care Cisco Consultant Name Role Phone Daija Parry DO Primary Care Provider [phone] Ely Darling PharmD Unavailable Encounter Details Date Type Department Care Team ([facility] st Contact Info) Description 07/19/2023 Orders Only [facility] MEDICINE [address] [place] [address] ProviderAnnel MD Social History Tobacco Use Types [...] Description 02/03/2025 9:45 AM EDT Office Visit [facility] MEDICINE [address] [place] [address] 03/12/2025 2:30 PM EST Office Visit [facility] OPTOMETRY [address] [place] [address] Yordan, Arielle, OD [address] [place] [address] documented as of this encounter Goals Goal Patient Goal Type Associated Problems Recent Progress Patient-Stated? Author Blood Pressure < 140/90 Blood Pressure 117/87(2024 9:58 AM EDT) No Dellogono, Lopez, PharmD Hemoglobin A1c < 7 Result Component 5.9( 2:18 PM EDT) No Dellogono, Lopez, PharmD Record your blood sugar as directed Result Component No Puia, Ely, PharmD documented as of this encounter Procedures [...] documented as of this encounter Care Teams Cisco Consultant Relationship Specialty Start Date End Date Daija Parry DO [address] [place] [address] PCP - General Family Medicine 12/22/14 Ely Darling PharmD [address] [place] [address] Pharmacist Internal Medicine 11/22/22 documented as of this encounter
--- OUTSIDE RECORDS SUMMARY | 2024-12-25 14:34 | XMS_ITS | Encounter Summary ---
Author Organization [employer] Address [address] [place] [address] 7t [place] [address] Care Team Providers Care Larry Car Operator Name Role Phone Daija Parry DO Primary Care Provider Ely Darling PharmD Unavailable [phone] Reason for Visit * Reason Onset Date Comments Med Refill 02/07/2024 Encounter Details Date Type Department Care Team ([facility] st Contact Info) Description 02/07/2024 Telephone [facility] MEDICINE [address] [place] [address] Daija Parry DO [address] [place] [address] Med Refill Social History Tobacco Use Types [...] with others, in a hotel, in a senior living, living outside on the street, on a [...] 50 MG tablet To be sent to: [facility] - [place], [place] - [address] [facility] documented in this encounter Plan of Treatment Upcoming Encounters Date Type Department Care Team (Late st Contact Info) Description 02/03/2025 9:45 AM EDT Office Visit [facility] MEDICINE [address] [place] [address] 03/12/2025 2:30 PM EST Office Visit [facility] OPTOMETRY [address] [place] [address] Arielle Farr, OD [address] [place] [address] documented as of this encounter Goals Goal Patient Goal Type Associated Problems Recent Progress Patient-Stated? Author Blood Pressure < 140/90 Blood Pressure 117/87(2024 9:58 AM EDT) No Dellogono, Lopez, PharmD Hemoglobin A1c < 7 Result Component 5.9( 2:18 PM EDT) No Dellogono, Lopez, PharmD Record your blood sugar as directed Result Component No PuiaEly, PharmD documented as of this encounter Visit Diagnoses Not on filedocumented in this encounter Additional Health Concerns Assessment Noted Time PHQ-9 Depression Total Score: 25 024 12:17 PM EDT documented as of this encounter Care Teams Larry Car Operator Relationship Specialty Start Date End Date Daija Parry DO [address] [place] [address] PCP - General Family Medicine 12/22/14 Puia, Ely, PharmD [address] [place] [address] Pharmacist Internal Medicine 11/22/22 documented as of this encounter
--- OUTSIDE RECORDS SUMMARY | 2024-12-25 14:34 | XMS_ITS | Encounter Summary ---
Author Organization [employer] Address [address] [place] [address] 7t [place] [address] Care Team Providers Care Precision Instrument Maker And Repairer Name Role Phone Daija Parry DO Primary Care Provider Ely Darling PharmD Unavailable Reason for Visit * Reason Onset Date Comments Appointment Request 04/03/2023 Encounter Details Date Type Department Care Team ([facility] st Contact Info) Description 04/03/2023 Telephone [facility] MEDICINE [address] [place], [place] [phone] Daija Parry DO [address] [place] [address] Appointment Request Social History Tobacco Use Types [...] seen for headaches due to CPAP 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 loan did offer to triage this call patient refused due to being out of town and is returning on 04/21/2023 documented in this encounter Plan of Treatment Upcoming Encounters Date Type Department Care Team (Late st Contact Info) Description 02/03/2025 9:45 AM EDT Office Visit [facility] MEDICINE [address] [place] [address] 03/12/2025 2:30 PM EST Office Visit [facility] OPTOMETRY [address] [place] [address] Arielle Farr, OD [address] [place] [address] documented as of this encounter Goals Goal Patient Goal Type Associated Problems Recent Progress Patient-Stated? Author Blood Pressure < 140/90 Blood Pressure 117/87(2024 9:58 AM EDT) No Lopez Marroquin, PharmD Hemoglobin A1c < 7 Result Component 5.9( 2:18 PM EDT) No Cara Lopez, PharmD Record your blood sugar as directed Result Component No Ely Darling PharmD documented as of this encounter Visit Diagnoses Not on filedocumented in this encounter Additional Health Concerns Assessment Noted Time PHQ-9 Depression Total Score: 24 023 8:59 AM EDT documented as of this encounter Care Teams Precision Instrument Maker And Repairer Relationship Specialty Start Date End Date Daija Parry DO [address] [place] [address] PCP - General Family Medicine 12/22/14 Ely Darling PharmD [address] [place] [address] Pharmacist Internal Medicine 11/22/22 documented as of this encounter
--- OUTSIDE RECORDS SUMMARY | 2024-12-25 14:34 | XMS_ITS | Encounter Summary ---
Author Organization [employer] Address [address] [facility] 7t [place] [address] Care Team Providers Care Histology Manager Name Role Phone Daija Parry DO Primary Care Provider Ely Darling PharmD Unavailable [phone] Reason for Visit * Reason Onset Date Comments Med Refill 09/09/2023 Encounter Details Date Type Department Care Team (Late st Contact Info) Description 09/09/2023 Refill [facility] PEDS [address] [place], [place] [phone] Daija Parry DO [address] [facility] [place] [address] Chronic bilateral low back pain, unspecified whether [...] the past 12 months, has t he [employer] gas, oil or water company threatened to [...] Description 02/03/2025 9:45 AM EDT Office Visit [facility] MEDICINE [address] [place] [address] 03/12/2025 2:30 PM EST Office Visit [facility] OPTOMETRY [address] [place] [address] Yordan, Arielle, OD [address] [place] [address] documented as of this encounter Goals Goal [...] documented as of this encounter Care Teams Histology Manager Relationship Specialty Start Date End Date Daija Parry DO [address] [place] [address] PCP - General Family Medicine 12/22/14 Ely Darling PharmD [address] [place] [address] Pharmacist Internal Medicine 11/22/22 documented as of this encounter
--- OUTSIDE RECORDS SUMMARY | 2024-12-25 14:34 | XMS_ITS | Encounter Summary ---
Author Organization [employer] Address [address] [place] [address] 7t [place] [address] Care Team Providers Care Hotel Houseman Name Role Phone Daija Parry DO Primary Care Provider [phone] Lopez Marroquin PharmD Unavailable Unavail able Ely Darling PharmD Unavailable [phone] Encounter Details Date Type Department Care Team ([facility] Contact Info) Description 03/13/2022 Orders Only [facility] MEDICINE [address] [place] [address] Daija Parry DO [address] [place] [address] Social History Tobacco Use Types Packs/Day Years [...] Upcoming Encounters Date Type Department Care Team ([facility] Contact Info) Description 02/03/2025 9:45 AM EDT Office Visit [facility] MEDICINE [address] [place] [phone] 03/12/2025 2:30 PM EST Office Visit [facility] OPTOMETRY [address] [place], [place] [phone] Arielle Farr, OD [address] [place] [address] documented as of this encounter Procedures Procedure [...] 10:15 AM EDT) Creatinine, Urine 326.51 mg/dL [facility] Microalbumin Urine 24.0 mg/L [facility] Microalbum Creatinine Ratio Ur 7.3 <30 ug/mg cr [facility] Comment:Albumin/Creatinine R atio Reference Ranges: Normal: < 30 ug/mg creatinine Microalbuminuria: 30 - 300 ug/mg creatinineClinical Albuminuria: > 300 ug/mg creatinine 01/02/2023 10:1 5 AM EDT 01/02/2023 11:37 AM EDT us Daija Parry DO LAB URINE ORDERABLES Final R esult [facility] [address] [place] [address] [phone] * (ABNORMAL) TSH (06/29/2022 3:06 PM EDT) Thyroid Stimulating Hormone 8.15(H) 0.32 - 4.0 uIU/mL [facility] Comment:Note: A sustained TS H level above 2.5 uIU/mL may warrant further investigation. TSH 3rd Generation ([facility]) 06/29/2022 3:06 PM EDT 06/29/2022 3:06 PM EDT [facility] External Provider LAB BLO OD ORDERABLES Final Result Performing Organization Address [facility]/ZIP Co de Phone Number [facility] [address] [place] [phone] * T4, Free (06/29/2022 3:06 PM EDT) Pathologist [facility] Free T4 (Free Thyroxine) 0.77 0.71 - 1.85 ng/dL [facility] 06/29/2022 3:06 PM EDT 06/29/2022 3:06 PM EDT [facility] External Provider LAB BLO OD ORDERABLES Final Result Performing Organization Address [facility] Co de Phone Number [facility] [address] [place] [phone] * (ABNORMAL) Basic Metabolic Panel (06/29/2022 3:06 PM EDT) Pathologist [facility] Sodium 138 135 - 145 mmol/L [facility] Potassium 4.3 3.3 - 5.1 mmol/L [facility] Comment:Slight Hemolysis Chloride 104 96 - 108 mmol/L [facility] Carbon Dioxide 27 22 - 29 mmol/L [facility] Anion Gap 11(L) 12 - 20 [facility] Urea Nitrogen (BUN) 13 9 - 16 mg/dL [facility] Creatinine, Serum 0.71 0.5 - 1.4 mg/dL [facility] Estimated Glomerular Filt Rate >60 [facility] Comment:NOTE: For -Am erican individuals, multiply the result by 1.210.Chronic Kidney Disease: Estimated GFR < 60 mL/min/1.59i9Neglpf Kidney Disease: Estimated GFR < 15 mL/min/1.73m2 Glucose 113 60 - 115 mg/dL [facility] Calcium 9.2 8.4 - 10.2 mg/dL [facility] 06/29/2022 3:06 PM EDT 06/29/2022 3:06 PM EDT [facility] External Provider LAB BLO OD ORDERABLES Final Result Performing Organization Address [facility] Co de Phone Number [facility] [address] [place] [phone] * Hemoglobin A1c (06/29/2022 3:06 PM EDT) Hemoglobin A1c 6.7 % [facility] Comment:Hemoglobin A1C Refer ence Range Adults: 4.8 - 6.0 % Non diabetic: < 6.0 % Goal: < 7.0 %Additional Action Suggested: > 8.0 %Note: Hemoglobin A1c results are invalid for patients with abnormal amounts of HbF. Blood transfusions may impact the HbA1c concentration in the patient sample. Estimated Average Glucose 146 mg/dL [facility] Comment:eAG = Estimated ave rage glucose which is %A1C expressed asaverage glucose, using the formula of the Z0O-JugmvrgVynxxeg Glucose study (ADAG), Diabetes Care, Vol.31,#8,Nov. 2007 06/29/2022 3:06 PM EDT 06/29/2022 3:06 PM EDT [facility] External Provider LAB BLO OD ORDERABLES Final Result Performing Organization Address [facility] Co de Phone Number [facility] [address] [place] [phone] * (ABNORMAL) CBC auto differential (06/29/2022 3:06 PM EDT) White Blood Count 9.9 4.8 - 10.8 X10*3/uL [facility] Red Blood Count 4.49 4.20 - 5.50 X10*6/uL [facility] Hemoglobin 13.8 12.0 - 16.0 g/dl [facility] Hematocrit 40.2 37.0 - 47.0 % [facility] Mean Corpuscular Volume 89.5 80.0 - 98.0 fL [facility] Mean Corpuscular Hemoglobin 30.7 27.0 - 33.0 pg [facility] Mean Corpuscular HGB Conc 34.3 31.0 - 35.0 g/dl [facility] Red Cell Distribution Width 13.2 11.0 - 16.0 % [facility] Platelet Count 277 160 - 400 X10*3/uL [facility] Mean Platelet Volume 9.3(L) 9.4 - 12.3 fL [facility] Neutrophils Percent Auto 74.2(H) 45 - 73 % [facility] Imm Gran Pct Auto 0.4 0.0 - 0.4 % [facility] Lymphocytes Percent Auto 17.4(L) 20 - 40 % [facility] Monocytes Percent Auto 7.1 2 - 11 % [facility] Eosinophils Percent Auto 0.6 0 - 4 % [facility] Basophils Percent Auto 0.3 0 - 2 % [facility] NRBC Pct Auto 0.0 0.0 - 0.2 /100WBC [facility] Neutrophils Absolute Auto 7.4 2.0 - 8.3 x10*3/uL [facility] Imm Gran Abs Auto 0.04(H) 0.00 - 0.03 X10*3/uL [facility] Lymphocytes Absolute Auto 1.7 1.2 - 4.9 X10*3/uL [facility] Monocytes Absolute Auto 0.7 0.1 - 1.2 X10*3/uL [facility] Eosinophils Absolute Auto 0.1 0.0 - 0.4 X10*3/uL [facility] Basophils Absolute Auto 0.0 0.0 - 0.2 X10*3/uL [facility] NRBC Abs Auto 0.000 0.0 - 0.012 X10*3/uL [facility] 06/29/2022 3:06 PM EDT 06/29/2022 3:06 PM EDT us [facility] External Provider LAB BLO OD ORDERABLES Final Result [facility] [address] [place] [phone] documented in this encounter Visit Diagnoses Not on filedocumented in this encounter Additional Health Concerns Assessment Noted Time PHQ-9 Depression Total Score: 24 022 10:57 AM EST documented as of this encounter Care Teams Hotel Houseman Relationship Specialty Start Date End Date Daija Parry DO [address] [place] [address] PCP - General Family Medicine 12/22/14 Lopez Marroquin, PharmD [address] [place] [address] Pharmacist Internal Medicine 06/25/22 11/22/22 Ely Darling, AugustoD [address] [place] [address] Pharmacist Internal Medicine 11/22/22 documented as of this encounter
--- OUTSIDE RECORDS SUMMARY | 2024-12-25 14:34 | XMS_ITS | Encounter Summary ---
Author Organization [employer] Address [address] [place] [address] 7t [place] [address] Care Team Providers Care Liaison Planner Name Role Phone Daija Parry DO Primary Care Provider [phone] Lopez Marroquin PharmD Unavailable Unavail able Ely Darling PharmD Unavailable Encounter Details Date Type Department Care Team ([facility] Contact Info) Description 05/15/2022 Telephone [facility] MEDICINE [address] [place] [phone] Daija Parry DO [address] [place] [address] Social History Tobacco Use Types Packs/Day Years [...] Upcoming Encounters Date Type Department Care Team ([facility] Contact Info) Description 02/03/2025 9:45 AM EDT Office Visit [facility] MEDICINE [address] [place] [phone] 03/12/2025 2:30 PM EST Office Visit [facility] OPTOMETRY [address] [place] [address] Arielle Farr, LATRICIA [address] [place] [address] documented as of this encounter Visit Diagnoses Not on filedocumented in this encounter Additional Health Concerns Assessment Noted Time PHQ-9 Depression Total Score: 24 022 10:57 AM EST documented as of this encounter Care Teams Liaison Planner Relationship Specialty Start Date End Date Daija Parry DO [address] [place] [address] PCP - General Family Medicine 12/22/14 Lopez Marroquin, AugustoD [address] [place] [address] Pharmacist Internal Medicine 06/25/22 11/22/22 Ely Darling, AugustoD [address] [place] [address] Pharmacist Internal Medicine 11/22/22 documented as of this encounter
--- OUTSIDE RECORDS SUMMARY | 2024-12-25 14:34 | XMS_ITS | Encounter Summary ---
Author Organization [employer] Address [address] [place] [address] [address]t h Floor [place] [phone] Care Team Providers Care Pipelines Laborer Name Role Phone Daija Parry DO Primary Care Provider Ely Darling PharmD Unavailable [phone] Reason for Visit * Reason Onset Date Comments Med Refill 05/15/2024 Encounter Details Date Type Department Care Team (Late st Contact Info) Description 05/15/2024 Refill [facility] MEDICINE [address] [place] [address] Daija Parry DO [address] [place] [address] Pain Social History Tobacco Use Types Packs/Day [...] Description 02/03/2025 9:45 AM EDT Office Visit [facility] MEDICINE [address] [place] [address] 03/12/2025 2:30 PM EST Office Visit [facility] OPTOMETRY [address] [place] [address] Arielle Farr, OD [address] [place] [address] documented as of this encounter Goals Goal [...] documented as of this encounter Care Teams Pipelines Laborer Relationship Specialty Start Date End Date Daija Parry DO [address] [place] [address] PCP - General Family Medicine 12/22/14 Ely Darling PharmD [address] [place] [address] Pharmacist Internal Medicine 11/22/22 documented as of this encounter
--- OUTSIDE RECORDS SUMMARY | 2024-12-25 14:34 | XMS_ITS | Encounter Summary ---
Author Organization [employer] Address [address] [place] [address] 7[address] [place] [address] Care Team Providers Care Drawing Press Operator Name Role Phone Daija Parry DO Primary Care Provider [phone] Ely Darling PharmD Unavailable Encounter Details Date Type Department Care Team ([facility] st Contact Info) Description 12/01/2024 Refill [facility] [address] [place], [place] [phone] Daija Parry DO [address] [place] [address] Type 2 diabetes mellitus without complication, without long-term current use of insulin ([facility]) Social History Tobacco Use Types Packs/Day [...] encounter Miscellaneous Notes * Telephone Encounter - Daija Parry DO - 12/02/2024 1:13 PM EDT Rx already sent. documented in this encounter Plan of Treatment Upcoming Encounters Date Type Department Care Team (Late st Contact Info) Description 02/03/2025 9:45 AM EDT Office Visit [facility] [address] [place] [address] 03/12/2025 2:30 PM EST Office Visit [facility] [address] [place] [address] Arielle Farr, OD [address] [place] [address] documented as of this encounter Goals Goal [...] complication, without long-term current use of insulin ([facility]) documented in this encounter Additional Health Concerns Assessment Noted Time PHQ-9 Depression Total Score: 22 025 3:28 PM EDT documented as of this encounter Care Teams Drawing Press Operator Relationship Specialty Start Date End Date Daija Parry DO [address] [place] [address] PCP - General Family Medicine 12/22/14 Ely Darling PharmD [address] [place] [address] Pharmacist Internal Medicine 11/22/22 documented as of this encounter
--- OUTSIDE RECORDS SUMMARY | 2024-12-25 14:34 | XMS_ITS | Encounter Summary ---
Author Organization [employer] Address [address] [place] [address] 7t [place] [address] Care Team Providers Care Information Clerk Brokerage Name Role Phone Daija Parry DO Primary Care Provider Ely Darling PharmD Unavailable Reason for Visit * Reason Comments Med Refill Encounter Details Date Type Department Care Team (Late st Contact Info) Description 01/01/2023 Refill [facility] [address] [place] [address] Daija Parry DO [address] [place] [address] Social History Tobacco Use Types Packs/Day Years [...] AM EDT documented as of this encounter Functional Status * Over the past 2 weeks, how often have you been bothered by any of the following problems? Question Answer Date of Assessment Author Patient Health Questionnaire-2 Score 6 01/02/2023 8:59 AM EDT Natalie Mirza MA * If you checked off any problems on this questionnaire so far, Question Answer Date of Assessment Author How difficult have these problems made it for you to do your work, take care of things at home, or get along with other people? Very difficult 01/02/2023 8:59 AM Natalie David MA * Over the past 2 weeks, how often have you been bothered by any of the following problems? Question Answer Date of Assessment Author Little interest or pleasure in doing things Nearly every day 01/02/2023 8:59 AM Natalie Escobedo MA Feeling down, depressed, or hopeless Nearly every day 01/02/2023 8:59 AM Natalie David MA Trouble falling or staying asleep, or sleeping too much Nearly every day 01/02/2023 8:59 AM Natalie David MA Feeling tired or having little energy Nearly every day 01/02/2023 8:59 AM Natalie David [place] Poor appetite or overeating Nearly every day 01/02/2023 8:59 AM Natalie David MA Feeling bad about yourself - or that you are a failure or have let yourself or your family down Nearly every day 01/02/2023 8:59 AM Natalie David MA Trouble concentrating on things, such as reading the newspaper or watching television Nearly every day 01/02/2023 8:59 AM Natalie David MA Moving or speaking so slowly that other people could have noticed? Or the opposite - being so fidgety or restless that you have been moving around a lot more than usual. Nearly every day 01/02/2023 8:59 AM Natalie David MA Thoughts that you would be better off or hurting yourself in some way Not at all 01/02/2023 8:59 AM Natalie David MA Patient Health Questionnaire-9 Score 24 01/02/2023 8:59 AM Natalie David MA documented as of this encounter Plan of Treatment Upcoming Encounters Date Type Department Care Team (Late st Contact Info) Description 02/03/2025 9:45 AM EDT Office Visit [facility] [address] [place] [address] 03/12/2025 2:30 PM EST Office Visit [facility] [address] [place] [address] Arielle Farr, OD [address] [place] [address] documented as of this encounter Goals Goal Patient Goal Type Associated Problems Recent Progress Patient-Stated? Author Blood Pressure < 140/90 Blood Pressure 117/87(2024 9:58 AM EDT) No DelLopez moreno, PharmD Hemoglobin A1c < [...] documented as of this encounter Care Teams Information Clerk Brokerage Relationship Specialty Start Date End Date Daija Parry DO [address] [place] [address] PCP - General Family Medicine 12/22/14 Ely Darling, PharmD [address] [place] [id number] Pharmacist Internal Medicine 11/22/22 documented as of this encounter
--- OUTSIDE RECORDS SUMMARY | 2024-12-25 14:34 | XMS_ITS | Encounter Summary ---
Author Organization [employer] Address [address] [place] [address] [address] [place] [address] Care Team Providers Care Airbrush Painter Name Role Phone BrindaDaija Primary Care Provider [phone] Ely Darling PharmD Unavailable Reason for Visit * Reason Comments Med Refill Encounter Details Date Type Department Care Team ([facility] st Contact Info) Description 01/24/2023 Refill [facility] [address] [place] [address] Daphney Roca MD [address] [place] [address] Social History Tobacco Use Types Packs/Day Years [...] Description 02/03/2025 9:45 AM EDT Office Visit [facility] [address] [place] [address] 03/12/2025 2:30 PM EST Office Visit [facility] OPTOMETRY [address] [place], [place] [phone] YordanArielle bernard, OD [address] [place] [address] documented as of this encounter Goals Goal [...] documented as of this encounter Care Teams Airbrush Painter Relationship Specialty Start Date End Date Daija Parry DO [address] [place] [address] PCP - General Family Medicine 12/22/14 Puia, Ely, PharmD [address] [place] [address] Pharmacist Internal Medicine 11/22/22 documented as of this encounter
--- OUTSIDE RECORDS SUMMARY | 2024-12-25 14:34 | XMS_ITS | Encounter Summary ---
Author Organization [employer] Address [address] [place] [address] 7[address] [place] [address] Care Team Providers Care Vigoureux Printer Name Role Phone Daija Parry DO Primary Care Provider [phone] Lopez Marroquin PharmD Unavailable Unavail able Ely Darling PharmD Unavailable [phone] Reason for Visit * Reason Onset Date Comments Med Refill 06/12/2022 Encounter Details Date Type Department Care Team (Late st Contact Info) Description 06/12/2022 Refill [facility] [address] [place] [address] Daija Parry DO [address] [place], [place] [phone] Generalized anxiety disorder (Primary Dx) Social History [...] 10 MG tablet Please sent to [facility] - [place], [place] - [address] [place] [address] documented in this encounter Plan of Treatment Upcoming Encounters Date Type Department Care Team (Late st Contact Info) Description 02/03/2025 9:45 AM EDT Office Visit [facility] [address] [place] [address] 03/12/2025 2:30 PM EST Office Visit [facility] OPTOMET[facility] [address] [place] [address] Arielle Farr, OD [address] [place], [place] documented as of this encounter Visit Diagnoses Diagnosis Generalized anxiety disorder- Primary documented in this encounter Additional Health Concerns Assessment Noted Time PHQ-9 Depression Total Score: 24 023 11:12 AM EST documented as of this encounter Care Teams Vigoureux Printer Relationship Specialty Start Date End Date Daija Parry DO [address] [place], [place] PCP - General Family Medicine 12/22/14 Lopez Marroquin, PharmD [address] [place] [address] Pharmacist Internal Medicine 06/25/22 11/22/22 Ely Darling PharmD [address] [place] [phone] Pharmacist Internal Medicine 11/22/22 documented as of this encounter
--- OUTSIDE RECORDS SUMMARY | 2024-12-25 14:34 | XMS_ITS | Clinical Summary ---
Author Organization [facility] Address [address] [place] [address] Phone Care Team Providers Care Manager Semiconductor Name Role Phone Daija Parry DO Primary [...] Do not crush or chew. Active pancrelipase, Vma-Pdyt-Cyzx, (Creon) 79210-53245 units capsule Take 1 capsule by mouth [...] 9.6 8.7 - 10.7 mg/dL eGFR Non-Afr Lebanese 100 Total Bilirubin 0.4 MG/DL Bilirubin Direct [...] Most Recently Relevant to Health Maintenance Insurance [facility] One [employer] Dual SNP ([id number]) [facility] One [employer] Dual SNP ([id number]) Care Teams Manager Semiconductor Relationship Specialty Start Date End Date Daija Parry DO PCP - General Family Medicine 03/13/22
--- OUTSIDE RECORDS SUMMARY | 2024-12-25 14:34 | XMS_ITS | Clinical Summary ---
Author Organization [employer] Address [address] [place] [address] [address] [place] [address] Care Team Providers Care [facility] Attendant Name Role Phone Brinda Daija Primary Care Provider Ely Darling PharmD Unavailable [phone] Allergies Active Allergy Reactions Criticality Noted Date Comments Cefuroxime Hives High 07/15/2015 Medications * This document contains information received from the source organization and may not represent a complete record from that organization. pantoprazole (ProtoNix) 40 MG EC tablet Take 1 tablet by mouth 2 times daily. Active pancrelipase, Hbu-Znjt-Ytmp, (Creon) 40920-73617 units capsule Take 2 capsules by mouth with breakfast, with lunch, with evening meal, and at bedtime. Active loperamide (Imodium) 2 MG capsule Take 2 capsules by mouth in the morning and at bedtime. Active metoclopramide (Reglan) 10 MG tablet Take 20 mg by mouth 3 times daily. 023 Active Blood Pressure Monitor kitIndications: Essential [...] anxiety. Active ergocalciferol (Vitamin D2) 1.25 MG (57055 UT) capsuleIndicati ons:Vitamin D deficiency Take 1 capsule (1.25 mg) by mouth 1 (one) time per week. 5 capsule 3 024 Active alosetron (Lotronex) 1 MG tablet Take 1 mg by mouth 2 times daily. 024 Active Alcohol Swabs (Alcohol Prep) padsIndications :Type 2 diabetes mellitus without complication, without long-term current use of insulin (CMS/[facility]) Use one pad BID when checking blood glucose 100 each 11 Active glucose blood (FREESTYLE LITE) test stripIndication s:Type 2 diabetes mellitus without complication, without long-term current use of insulin ([facility]) Use to monitor blood glucose twice daily 100 each Active TRUEplus Lancets 33G miscIndications :Type 2 diabetes mellitus without complication, without long-term current use of insulin ([facility]) Use to test blood sugar 2 time(s) daily 100 each 11 024 Active Blood Glucose Monitoring Suppl (FreeStyle [place] Lite) w/Device kit Use to test blood sugar 3 times daily 1 kit Active Skin Protectants, Misc. (Minerin Creme) cream APPLY TOPICALLY TO DRY SKIN TWICE DAILY NEEDED 454 g 5 024 Active ondansetron (Zofran) 4 MG tablet TAKE 1 TABLET BY MOUTH THREE TIMES DAILY NEEDED FOR NAUSEA AND VOMITING Active Nystop 762544 UNIT/GM powder APPLY TOPICALLY TO THE AFFECTED AREA(S) 2 OR 3 TIMES DAILY Active pentosan polysulfate (Elmiron) 100 MG capsule Take 2 capsules (200 mg) by mouth 2 times daily. 120 capsule 024 Active loratadine (Claritin) 10 MG tablet Take 1 tablet (10 mg) by mouth Once per day. 30 tablet 11 024 2024 Active famotidine (Pepcid) 40 MG tablet Take 1 tablet (40 mg) by mouth at bedtime. 30 tablet 5 024 2024 Active Trulicity 0.75 MG/0.5ML solution auto-injectorIn dications:Type 2 diabetes mellitus without complication, without long-term current use of insulin (CMS/[facility]) INJECT ONE PEN (=0.75MG) SUBCUTANEOUSLY ONCE A WEEK DIRECTED 2 mL 11 Active losartan (Cozaar) 100 MG tabletIndicatio ns:Essential hypertension TAKE 1 TABLET BY MOUTH EVERY EVENING 90 tablet 025 Active D3 Super Strength 50 MCG (1999) capsuleIndicati ons:Vitamin D deficiency TAKE 1 CAPSULE BY MOUTH EVERY MORNING 30 capsule 11 025 Active Diclofenac Sodium 1 % gelIndications: Chronic low back pain, unspecified back pain laterality, unspecified whether sciatica present Apply 2 g topically if needed in the morning, at noon, in the evening, and at bedtime (pain). 150 g 3 025 Active montelukast (Singulair) 10 MG tablet TAKE 1 TABLET BY MOUTH EVERY EVENING 90 tablet 1 025 Active mineral oil-hydrophil petrolat ointment Topical OintmentIndicat ions:Xerosis cutis APPLY TO THE AFFECTED AREA(S) TWICE DAILY NEEDED 454 g 2 025 Active dicyclomine (Bentyl) 20 MG tablet Active PARoxetine (Paxil) 30 MG tablet Take 30 mg by mouth in the morning. 025 Active solifenacin (VESIcare) 10 MG tablet Take 10 mg by mouth in the morning. 025 Active acetaminophen (Tylenol 8 Hour) 650 MG ER tabletIndicatio ns:Pain TAKE 1 TABLET BY MOUTH EVERY 6 HOURS NEEDED FOR PAIN OR FEVER 100 tablet 3 025 Active capsaicin (Capzasin-HP) 0.1 % creamIndication s:Spondylosis, lumbar, with myelopathy Apply thin layer by topical route up to 4 times daily for pain. 45 g 3 025 Active gabapentin (Neurontin) 400 MG capsule Take 1 capsule (400 mg) by mouth 3 times daily. 270 capsule 3 025 Active levothyroxine (Synthroid, Levoxyl) 75 MCG tabletIndicatio ns:Hypothyroidi sm, unspecified type TAKE 1 TABLET BY MOUTH EVERY MORNING WITH 200 mcg 90 tablet 025 Active Arnuity Ellipta 200 MCG/ACT inhaler INHALE 1 PUFF BY MOUTH EVERY DAY AT THE SAME TIME RINSE MOUTH AFTER USING 30 each 2 025 Active furosemide (Lasix) 20 MG tablet TAKE 1 TABLET BY MOUTH EVERY DAY NEEDED FOR SWELLING 30 tablet 2 025 Active ergocalciferol (Vitamin D2) 1.25 MG (21843 UT) capsule TAKE 1 CAPSULE BY MOUTH ONCE WEEKLY ON SUNDAY MORNING 12 capsule 025 Active ibuprofen 800 MG tabletIndicatio ns:Pain TAKE 1 TABLET BY MOUTH THREE TIMES DAILY WITH FOOD NEEDED FOR PAIN 60 tablet 2 025 Active verapamil ER (Verelan) 240 MG 24 hr capsuleIndicati ons:Essential hypertension TAKE 1 CAPSULE BY MOUTH EVERY MORNING 60 capsule 3 025 Active empagliflozin (Jardiance) 10 MGIndications:T ype 2 diabetes mellitus without complication, without long-term current use of insulin ([facility]) Take 1 tablet (10 mg) by mouth Once per day. 30 tablet 11 025 2025 Active hydroCHLOROthia zide (HYDRODiuril) 25 MG tablet TAKE 1 TABLET BY MOUTH EVERY EVENING 90 tablet 025 Active hydrALAZINE (Apresoline) 100 MG tabletIndicatio ns:Essential hypertension TAKE 1 TABLET BY MOUTH TWICE DAILY IN THE MORNING AND IN THE EVENING WITH FOOD 180 tablet 025 Active levothyroxine (Synthroid, Levoxyl) 200 [...] to 28 days. Do not start before December 26, 2024. 112 tablet 025 2024 Active empagliflozin (Jardiance) 10 MGIndications:T ype 2 diabetes mellitus without complication, without long-term current use of insulin ([facility]) Take 1 tablet (10 mg) by mouth Once per day. 30 tablet 11 024 2024 Discontinued(R eorder (will not trigger notification to Pharmacy)) levothyroxine (Synthroid, Levoxyl) 200 MCG tabletIndicatio ns:Hypothyroidi sm, unspecified type TAKE 1 TABLET BY MOUTH EVERY MORNING BEFORE BREAKFAST 90 tablet 1 025 2024 Discontinued hydrALAZINE (Apresoline) 100 MG tabletIndicatio ns:Essential hypertension TAKE 1 TABLET BY MOUTH TWICE DAILY IN THE MORNING AND IN THE EVENING WITH FOOD 180 tablet 1 025 2024 Discontinued hydroCHLOROthia zide (HYDRODiuril) 25 MG tablet TAKE 1 TABLET BY MOUTH EVERY EVENING 90 tablet 1 025 2024 Discontinued traMADol (Ultram) 50 MG tabletIndicatio ns:Chronic bilateral low back pain with bilateral sciatica TAKE 1 TABLET BY MOUTH EVERY 6 HOURS NEEDED FOR SEVERE PAIN 112 tablet 025 2024 Discontinued Active Problems Problem Noted Date Diagnosed Date Bereavement 07/10/2024 Long-term current use of opiate analgesic 2024 Overview (10/28/2024): Medication: Tramadol 50mg Q6H PRN Indication: lumbar spondylosis with myelopathy Last NOISE TESTER Agreement: 03/04/24 Tier: 2 (Q3mo NOISE TESTER) - eval 10/28/24 by PCP Assessment & Plan (12/02/2024 1:09 PM EDT): Timeline: - 09/02/24: Group Visit - pill count 2 short, utox as expected. - 09/30/24: Group visit - pill count 11 short (said left some at home), utox as expected - 10/28/24: Group visit - utox and pill count as expected - 12/02/24: Group visit - utox and pill count as expected Assessment & Plan (10/28/2024 1:13 PM EDT): Timeline: - 09/02/24: Group Visit - pill count 2 short, utox as expected. - 09/30/24: Group visit - pill count 11 short (said left some at home), utox as expected - 10/28/24: Group visit - utox and pill count as expected Assessment & Plan (09/30/2024 1:41 PM EDT): Timeline: - 09/02/24: Group Visit - pill count 2 short, utox as expected. - 09/30/24: Group visit - pill count 11 short (said left some at home), utox as expected Assessment & Plan (09/02/2024 1:39 PM EDT): Timeline: - 09/02/24: Group Visit - pill count 2 short, utox as expected. Adjustment disorder with mixed anxiety and depre [...] main strength. Pt currently has services with [facility] for psychiatry and is also in wait list for OP individual therapy. clinician engaged patient with active/reflective listening. Reviewed and assessed for risk, current stressors and protective factors using open-ended questions. clinician will provide follow-up BE for additional support. Provided [facility] contact information. Chronic, continuous use of opioids 01/01/2024 Overview (03/04/2024): Dx: Chronic Back Pain with Sciatica Rx: Tramadol 50mg Q6 hours Tier 2, visits every 3 months NOISE TESTER Agreement signed: 03/04/24 Additional considerations: Restrictive [...] lumbar, with myelopathy 04/17/2022 Assessment & Plan (12/02/2024 1:08 PM EDT): -Good engagement and participation with Group Medical Visit model -Encouraged multifactorial approach to pain control including pharm and non- pharm modalities -pill count/utox as expected Assessment & Plan (10/28/2024 1:13 PM EDT): -Good engagement and participation with Group Medical Visit model -Encouraged multifactorial approach to pain control including pharm and non- pharm modalities -pill count/utox as expected Assessment & Plan (09/30/2024 1:39 PM EDT): -Good engagement and participation with Group Medical Visit model -Encouraged multifactorial approach to pain control including pharm and non- pharm modalities -See laundry operator regarding pill count/utox Assessment & Plan (09/02/2024 1:39 PM EDT): -Good engagement and participation with Group Medical Visit model -Encouraged multifactorial approach to pain control including pharm and non- pharm modalities -UTOX as expected, pill count 2 short. See laundry operator Assessment & Plan (06/03/2024 2:35 PM EST): [...] pancreatitis (?) Chronic gastroesophageal reflux disease 01/28/20 Generalized anxiety disorder 01/27/2015 Irritable bowel syndrome [...] organization. Date Type Department Care Team Description 12/22/2024 Refill [facility] [address] [place] [phone] Daija Parry DO Essential hypertension; Hypothyroidism, unspecified type; Chronic bilateral low back pain with bilateral sciatica 12/02/2024 9:45 AM EDT Office Visit [facility] [address] [place], [place] [phone] Chloé Wilson, NIKOLAS Spondylosis, lumbar, with myelopathy (Primary Dx); Long-term current use of opiate analgesic 12/02/2024 Refill [facility] [address], [place] [phone] Daija Parry DO Type 2 diabetes mellitus without complication, without long-term current use of insulin ([facility]) 12/02/2024 Travel 12/01/2024 Refill [facility] [address] [place] [address] Daija Parry DO Type 2 diabetes mellitus without complication, without long-term current use of insulin ([facility]) 11/24/2024 Refill [facility] [address] [place] [address] Pretty Greene MD Chronic bilateral low back pain with bilateral sciatica 11/14/2024 Refill [facility] [address] [place] [address] Daija Parry DO Essential hypertension 11/09/2024 Refill [facility] [address] [place] [phone] Daija Parry DO Pain 10/28/2024 9:45 AM EDT Office Visit [facility] [address] [place] [phone] Chloé Wilson, NIKOLAS Spondylosis, lumbar, with myelopathy (Primary Dx); Long-term current use of opiate analgesic 10/28/2024 Telephone [facility] [address] [place] [phone] Lakesha Graham, LONG NOISE TESTER Tier 2 10/28/2024 Travel 10/24/2024 Refill [facility] [address] [place] [phone] Daija Parry DO 10/15/2024 Refill [facility] [address] [place] [address] Daija Parry DO 10/13/2024 Refill [facility] [address] [place] [address] Daija Parry DO Chronic bilateral low back pain with bilateral sciatica 10/02/2024 Telephone [facility] [address] [place] [phone] Daija Parry DO Nurse Triage 09/30/2024 9:45 AM EDT Office Visit [facility] [address] [place] [address] Chloé Wilson, SHEET HANGER Spondylosis, lumbar, with myelopathy (Primary Dx); Long-term current use of opiate analgesic 09/30/2024 Telephone [facility] [address] [place] [address] Lakesha Graham, RN Pill count 09/30/2024 Refill [facility] [address] [place] [address] Daija Parry, Hypothyroidism, unspecified type 09/30/2024 Telephone [facility] [address] [place] [address] Lakesha Graham, RN Tramadol count discrep 09/30/2024 Travel from Last 3 Months Immunizations Immunization Administration Dates Next Due DTaP 09/19/1978, 6,1973,11/04,1973 [...] Sign Reading Time Taken Comments Blood Pressure 117/87 09/30/2024 9:58 AM EDT Pulse 109 09/30/2024 9:58 AM EDT wether today very hot Temperature 36.3 C (97.3 F) 09/30/2024 9:58 AM EDT Respiratory Rate 20 09/30/2024 9:58 AM EDT Oxygen Saturation 99% 02/11/2024 12: 14 PM EST Inhaled Oxygen Concentration - - Weight 128 kg (282 lb 3.2 oz) 09/30/2024 9:58 AM EDT Height 154.9 cm (5' 1 ) 09/30/2024 9:58 AM EDT Body Mass Index 53.32 09/30/2024 9:58 AM EDT Plan of Treatment Upcoming Encounters Date Type Department Care Team (Late st Contact Info) Description 02/03/2025 9:45 AM EDT Office Visit [facility] [address] [place] [address] 03/12/2025 2:30 PM EST Office Visit [facility] [address] [place] [address] Yordan, Arielle, OD [address] [place] [address] Health Maintenance Due Date Last Done Comments CT Colonography 1973 FIT DNA/Cologuard 1975 FIT 1975 FOBT 1975 Sigmoidoscopy 1975 Disability Screening 1975 Diabetes: Foot Exam 06/27/1983 Alcohol/Substance Use [...] 09/22/2024 09/22/2014, 02/06/2012, 05/23/1995, Additional history exists Influenza Vaccine (#1) 2024 , 01/02/2023, 01/20/2022, Additional history exists Depression Monitoring 01/09/2025 07/10/2024, 025 Diabetes: Hemoglobin A1C 01/14/2025 025, 12/11/2023, 08/01/2023, Additional history exists Mammogram 02/13/2025 02/14/2024, 10/08, 10/29/2020, Additional history exists Diabetes: Urine Protein Screening 07/15/2025 07/15/2024, 07/12/2023, 05/03/2023, Additional history exists Lipid Panel 07/15/2025 07/15/2024, 07/09, 05/03/2023, Additional history exists Tobacco Screening 09/15/2025 09/15/2024 Dental X-Ray: Full Mouth 05/15/2026 024, 08/18/2016, 07/15/2015 Eye Exam 09/09/2026 09/09/2024, 06/06/2024, 09/09/2024, Additional history exists RSV Patients and Patients Aged 60 years or older (1 - 1-dose 75+ series) 2048 IPV Vaccines Completed 04/25/1988, 09/07, 11/24/1975, Additional history exists Pneumococcal Vaccine: 50+ Years Completed 04/30/2023, 08/23/2015, 09/22/2014, Additional history exists Hepatitis B Vaccines Completed 12/11/2023, 05/16/2004, 01/07/2004, Additional history exists COVID-19 Vaccine Completed 02/11/2024, , 03/09/2022, Additional history exists HIV Screening Completed 07/15/2024, [...] patient's age to complete this topic Meningococcal B Vaccine Aged Out No l onger eligible based on patient's age to complete [...] Pressure 117/87(2024 9:58 AM EDT) No Lopez Marroquin PharmD Hemoglobin A1c < 7 Result Component 5.9( 2:18 PM EDT) No Lopez Marroquin PharmD Record your blood sugar as directed Result Component No Ely Darling PharmD Procedures Procedure Name Priority Date/Time Associated Diagnosis Comments POCT BENITO-14 URINE DRUG SCREEN Routine 12/02/2024 10:24 AM EDT Long-term current use of opiate analgesic POCT BENITO-14 URINE DRUG SCREEN Routine 10/28/2024 10:04 AM EDT Spondylosis, lumbar, with myelopathy POCT BENITO-14 URINE DRUG SCREEN Routine 09/30/2024 12:59 PM EDT Long-term current use of opiate analgesic ALBUMIN, RANDOM URINE W/CREATININE Routine 07/15/2024 3:00 [...] recurrent, chronic (CMS/HCC) AISHWARYA (obstructive sleep apnea) BI MAMMOGRAM SCREENING TOMOSYNTHESIS BILATERAL Routine 02/14/2024 [...] Results * POCT BENITO-14 Urine Drug Screen (12/02/2024 10:24 AM EDT) Only the most recent of3 resultswithin the time period is included. THC Negative Negative Cocaine Screen, Urine Negative Negative Opiate Screen, Urine Negative Negative Methamphetamine Screen Urine Negative Negative Amphetamine Screen, Urine Negative Negative Benzodiazepines Screen, Urine Negative Negative Barbiturate Screen, Urine Negative Negative Methadone Screen, Urine Negative Negative Buprenophine Screen, Urine Negative Negative TCA, Urine Negative Negative MDMA Urine Negative Negative ng/mL Oxycodone Screen, Urine Negative Negative Phencyclidine (PCP), Urine Negative Negative Propoxyphene, Urine Negative Negative Fentanyl, Urine Negative Negative Urine Urine specimen obtained by clean catch procedure / Unknown 12/02/2024 10:24 AM EDT Narrative Sandie Burnett RN - 12/02/2024 10:24 AM EDT .UTOX cup Lot#[id number] Exp. 01/13/26 Internal Pass Control Chloé CONNOR POINT OF CARE TEST ENTER/EDIT ORDERABLES Final Result * Albumin, Random Urine W/Creatinine (07/15/2024 3:00 PM EDT) Pathologist [facility] Creatinine, Urine 205.32 mg/dL [facility] Microalbumin Urine 29.0 mg/L [facility] Microalbum Creatinine Ratio Ur 14.1 <30 ug/mg cr [facility] Comment:Albumin/Creatinine R atio Reference Ranges: Normal: < 30 ug/mg creatinine Microalbuminuria: 30 - 300 ug/mg creatinineClinical Albuminuria: > 300 ug/mg creatinine Urine (Urine, Random) 07/15/2024 3:00 PM EDT 07/15/2024 4:11 PM EDT us Daija Parry DO LAB URINE ORDERABLES Final R esult [facility] [address] [place] [phone] * Hepatitis C Antibody with Reflex to HCV, RNA, Quantitative, Real-Time PCR (07/15/2024 2:18 PM EDT) Pathologist [facility] Hepatitis C Antibody Nonreactive Nonreactive [facility] Comment:Antibodies to HCV no t detected; does not exclude early acuteHCV infection. Blood Venous blood specimen / Unknown 07/15/2024 2:18 PM EDT 07/15/2024 2:18 PM EDT Daija Brinda LAB BLOOD ORDERABLES Final R esult Performing Organization Address City/[facility]/ZIP Co de Phone Number [facility] [address] [place] [address] [phone] * HIV-1/2 Antigen and Antibodies, Fourth Generation, with Reflexes (07/15/2024 2:18 PM EDT) [facility] HIV AB/AG Nonreactive Nonreactive [facility] Comment:HIV-1 p24 Ag and/or HIV-1/HIV-2 Ab not detected.A test result that is nonreactive does not exclude thepossibility of exposure to or infection with HIV-1 and/orHIV-2. Nonreactive results in this assay for individualswith prior exposure to HIV-1 and/or HIV-2 may be due toantigen and antibody levels that are below the limit ofdetection of this assay.The [employer]Munch HIV Ag/Ab Combo assay result andsupplemental assay results should be interpreted inconjunction with the patient's clinical presentation,history and other laboratory results. If the results areinconsistent with clinical evidence, additional testing issuggested to confirm the result. Blood Venous blood specimen / Unknown 07/15/2024 2:18 PM EDT 07/15/2024 2:18 PM EDT Daija Brinda LAB BLOOD ORDERABLES Final R esult Performing Organization Address City/[facility]/ZIP Co de Phone Number [facility] [address] [place] [phone] [phone] * Hemoglobin A1c (07/15/2024 2:18 PM EDT) [facility] Hemoglobin A1c 5.9 <6.0 % [facility] Comment:Hemoglobin A1C Refer ence Range Adults: 4.8 - 6.0 % Non diabetic: < 6.0 % Goal: < 7.0 %Additional Action Suggested: > 8.0 %Note: Hemoglobin A1c results are invalid for patients with abnormal amounts of HbF. Blood transfusions may impact the HbA1c concentration in the patient sample. Estimated Average Glucose 123 mg/dL [facility] Comment:eAG = Estimated ave rage glucose which is %A1C expressed asaverage glucose, using the formula of the E2H-BxdmdgfDfrfyai Glucose study (ADAG), Diabetes Care, Vol.31,#8,Nov. 2007 Blood Venous blood specimen / Unknown 07/15/2024 2:18 PM EDT 07/15/2024 2:18 PM EDT us Daija Parry DO LAB BLOOD ORDERABLES Final R esult [facility] [address] [place] [phone] * Lipid Panel, Standard (07/15/2024 2:18 PM EDT) Triglycerides 81 <150 mg/dL [facility] Comment:Desirable Triglyceri de: less than 150 mg/dLBorderline High Triglyceride 150-199 mg/dLHigh Triglyceride: 200-499 mg/dLVery High Triglyceride: greater than or equal to 5OO mg/dL Cholesterol 166 <200 mg/dL [facility] Comment:Desirable Cholestero l: less than 200 mg/dLBorderline High Cholesterol: 200-239 mg/dLHigh Cholesterol: greater than 239 mg/dL LDL Cholesterol Calculated 93 <100 mg/dL [facility] Comment:Desirable LDL: less than 100 mg/dLNear Optimal/Above Optimal LDL: 110- 129 mg/dLBorderline High LDL: 130-159 mg/dLHigh LDL: 160-189 mg/dLVery High LDL: greater than or equal to 190 mg/dL HDL Cholesterol 57 >40 mg/dL [facility] Comment:Desirable HDL: great er than 40 mg/dL Note: This HDL assay may give artificially low results in patients with liver disease. Blood Venous blood specimen / Unknown 07/15/2024 2:18 PM EDT 07/15/2024 2:18 PM EDT Daija Parry DO LAB BLOOD ORDERABLES Final R esult [facility] [address] [place] [address] [phone] * BI Mammogram Screening Tomosynthesis Bilateral (02/14/2024 12:07 PM EST) Anatomical Region Laterality Modality Breast Bilateral Mammography 02/14/2024 12:0 7 PM EST Narrative 02/22/2024 4:11 PM EST [address] [place] [address] Mammography Report Signed Patient: Shereen Cuellar MR#: [id number] : 1975 Acct:[id number] Age/Sex: 48 / F ADM Date: 02/14/24 Loc: HO.MAMMO Attending Dr: Daija Parry DO Ordering Physician: Daija Parry DO Results: 1N egative Date of Service: 02/14/24 Follow Up: 1 Year From Orig ina Mammogram Procedure(s): MM tomosynthesis screening BI Accession Number(s): [id number] cc: Daija Parry DO EXAMINATION: MM SCREENING [...] 02/22/24 1608 DD/ 1207 TD/TT: 02/14/24 1223 Impregnating Helper: Procedure Note Donotuseinterpreter, Image - 02/22/2024 [facility] [address] [place] [address] Mammography Report Signed Patient: Kira Cuellar#: [id number] : 1975Acct:[id number] Age/Sex: 48 / FADM Date: 02/14/24 Loc: HO.MAMMO Attending Dr: Daija Parry DO Ordering Physician: Daija Parryults: 1N egative Date of Service: 02/14/24Follow Up: 1 Year From Orig inal Mammogram Procedure(s): MM tomosynthesis screening BI Accession Number(s): [id number] cc: Daija Parry DO EXAMINATION: MM SCREENING [...] Sushila Moon DO 02/22/2024 04:08 PM EST RP Dictated By: Sushila Moon DO Signed By: <Electronically signed by Sushila Moon DO in OV> 02/22/24 1608 DD/ 1207 TD/TT: 02/14/24 1223 Impregnating Helper: Daija Brinda ROBLES IMG BI PROCEDURES Final Resu lt * THINPREP TIS PAP (11/24/2020 6:42 AM EDT) Clinical Information: None given [facility] COMMENT SEE COMMENT [facility] Comment: EXPLANATORY NOTE: The Pap is a screening test for cervical cancer. It is not a diagnostic test and is subject to false negative and false positive results. It is most reliable when a satisfactory sample, regularly obtained, is submitted with relevant clinical findings and history, and when the Pap result is evaluated along with historic and current clinical information. NO COLLECTION DATE RECEIVED. WE HAVE USED THE DATE THE SPECIMEN WAS RECEIVED BY THIS LABORATORY THE COLLECTION DATE. IF THIS IS INCORRECT, PLEASE CONTACT CLIENT SERVICES. PHONE NUMBER: COMMENT: This Pap test has been evaluated with computer assisted technology. [facility] Craft [facility] Director : SEE COMMENT [facility] Comment: ED, CT(ASCP) CT screening location: [place] [address] Interpretation/R esult: Negative for intraepithelial lesion or malignancy. [facility] LAB SYSTEM LMP: NONE GIVEN FOUNDATIO N LAB SYSTEM PATHOLOGIST: SEE COMMENT FOUND [facility] Comment: Sera Guzman M.D. Direct , Board Certified in Anatomic and Clinical Pathology and Cytopathology (electronic signature) Consulting Pathologist [facility] Pathology [address] [place] [address] Prev. BX: NONE GIVEN FOUNDATIO N LAB SYSTEM Prev. PAP: NONE GIVEN FOUNDATI ON LAB SYSTEM SOURCE: [employer] Statement Of Adequacy: SEE COMMENT [facility] Comment: Satisfactory for evaluation. Endocervical/transformation zone component present. Age and/or menstrual status not provided 11/24/2020 6:42 AM EDT us Daija Parry DO LAB PATHOLOGY ORDERABLES Fin al Result [facility] [address] * Hm Colonoscopy (08/15/2012 8:08 AM EDT) Historical Provider HEALTH MAINTENANCE Final Result from Last 3 Months or Most Recently Relevant to Health Maintenance Insurance [facility] < 65 [address] [place] [address] DENTAL - [facility] Care Teams Infirmary Attendant Relationship Specialty Start Date End Date Daija Parry DO [address] [place] [address] PCP - General Family Medicine 12/22/14 Ely Darling PharmD [address] [place] [address] Pharmacist Internal Medicine 11/22/22
--- OUTSIDE RECORDS SUMMARY | 2024-12-25 14:34 | XMS_ITS | Encounter Summary ---
Author Organization [email or web address] Address [address] [place] [address] 7t [place] [address] Care Team Providers Care Naphthalene Still Operator Name Role Phone Daija Parry DO Primary Care Provider Lopez Marroquin PharmD Unavailable Unavail able Ely Darlign PharmD Unavailable [phone] Reason for Visit * Reason Onset Date Comments Med Refill 06/12/2022 Encounter Details Date Type Department Care Team (Late st Contact Info) Description 06/12/2022 Telephone [facility] MEDICINE [address] [place] [address] Daija Parry DO [address] [place], [place] [phone] Med Refill Social History Tobacco Use Types [...] encounter Miscellaneous Notes * Telephone Encounter - Cameronshandra Arturo Martinez - 06/12/2022 9:48 AM EST Tc from pt requesting med refill on clonazePAM (KlonoPIN) 0.5 MG tablet Please sent to [facility] [place] [facility] documented in this encounter Plan of Treatment Upcoming Encounters Date Type Department Care Team (Late st Contact Info) Description 02/03/2025 9:45 AM EDT Office Visit [facility] [address] [facility] [address] 03/12/2025 2:30 PM EST Office Visit [facility] OPTOMETRY [address] [place] [address] Arielle Farr, OD 230 [facility] [address] documented as of this encounter Visit Diagnoses Not on filedocumented in this encounter Additional Health Concerns Assessment Noted Time PHQ-9 Depression Total Score: 24 023 11:12 AM EST documented as of this encounter Care Teams Naphthalene Still Operator Relationship Specialty Start Date End Date Daija Parry DO [address] [place] [address] PCP - General Family Medicine 12/22/14 Lopez Marroquin, AugustoD [address] [place] [phone] Pharmacist Internal Medicine 06/25/22 11/22/22 Ely Darling PharmD [address] [place] [address] Pharmacist Internal Medicine 11/22/22 documented as of this encounter
--- OUTSIDE RECORDS SUMMARY | 2024-12-25 14:34 | XMS_ITS | Encounter Summary ---
Author Organization [employer] Address [address] [place] [address] 7t [place] [address] Care Team Providers Care Shower Screen Installer Name Role Phone Daija Parry DO Primary Care Provider [phone] Lopez Marroquin PharmD Unavailable Unavail able Ely Darling PharmD Unavailable [phone] Reason for Visit * Reason Onset Date Comments Durable Medical Equipment 05/10/2022 Encounter Details Date Type Department Care Team (Late st Contact Info) Description 05/10/2022 Telephone [facility] MEDICINE [address] [place] [address] Daija Parry DO [address] [place], [place] [phone] Durable Medical Equipment Social History Tobacco Use [...] non fragrance wipes Please contact valentin at [phone] documented in this encounter Plan of Treatment Upcoming Encounters Date Type Department Care Team (Late st Contact Info) Description 02/03/2025 9:45 AM EDT Office Visit [facility] MEDICINE [address] [place] [address] 03/12/2025 2:30 PM EST Office Visit [facility] OPTOMETRY [address] [place], [place] [phone] Arielle Farr, OD 230 [place] [address] documented as of this encounter Visit Diagnoses Not on filedocumented in this encounter Additional Health Concerns Assessment Noted Time PHQ-9 Depression Total Score: 24 022 10:57 AM EST documented as of this encounter Care Teams Shower Screen Installer Relationship Specialty Start Date End Date Daija Parry DO 230 [place] [address] PCP - General Family Medicine 12/22/14 Lopez Marroquin, AugustoD [address] [place], [place] Pharmacist Internal Medicine 06/25/22 11/22/22 Ely Darling PharmD [address] [place] [address] Pharmacist Internal Medicine 11/22/22 documented as of this encounter
--- OUTSIDE RECORDS SUMMARY | 2024-12-25 14:34 | XMS_ITS | Encounter Summary ---
Author Organization [employer] Address [address] [facility] 7t [place] [address] Care Team Providers Care Pocket Creaser Name Role Phone Daija Parry DO Primary Care Provider [phone] Ely Darling PharmD Unavailable [phone] Reason for Visit * Reason Onset Date Comments Med Refill 08/29/2023 Encounter Details Date Type Department Care Team (Late st Contact Info) Description 08/29/[address] [facility] CHC MED & PEDS [address] [place] [address] Daija Parry DO 230 [facility] [place] [place] [address] Chronic bilateral low back pain, unspecified whether [...] the past 12 months, has t he [employer] gas, oil or water company threatened to [...] 9:45 AM EDT Office Visit [facility] MEDICINE 230 [place] [address] 03/12/2025 2:30 PM EST Office Visit [facility] OPTOMETRY [address] [place] [address] Yordan, Arielle, OD 230 [place] [address] documented as of this encounter Goals Goal [...] documented as of this encounter Care Teams Pocket Creaser Relationship Specialty Start Date End Date Daija Parry DO 230 [place] [address] PCP - General Family Medicine 12/22/14 Ely Darling PharmD [address] [place] [address] Pharmacist Internal Medicine 11/22/22 documented as of this encounter
--- OUTSIDE RECORDS SUMMARY | 2024-12-25 14:34 | XMS_ITS | Encounter Summary ---
Author Organization [employer] Address [address] [place] [address] 7t [place] [address] Care Team Providers Care Pickle Sorter Name Role Phone Daija Parry DO Primary Care Provider Ely Darling PharmD Unavailable [phone] Reason for Visit * Reason Onset Date Comments Appointment Request 10/19/2023 Encounter Details Date Type Department Care Team ([facility] st Contact Info) Description 10/19/2023 Telephone [facility] MEDICINE 230 [place], [place] [phone] Daija Parry DO 230 [place] [address] Appointment Request Social History Tobacco Use Types [...] Description 02/03/2025 9:45 AM EDT Office Visit [facility] MEDICINE [address] [place] [address] 03/12/2025 2:30 PM EST Office Visit [facility] OPTOMETRY [address] [place] [address] Yordan, Arielle, OD 230 [place] [address] documented as of this encounter Goals Goal [...] documented as of this encounter Care Teams Pickle Sorter Relationship Specialty Start Date End Date Daija Parry DO [address] [place] [address] PCP - General Family Medicine 12/22/14 Ely Darling PharmD [address] [place] [address] Pharmacist Internal Medicine 11/22/22 documented as of this encounter
--- OUTSIDE RECORDS SUMMARY | 2024-12-25 14:34 | XMS_ITS | Encounter Summary ---
Author Organization [employer] Address [address] [place] [address] 7 [place] [address] Care Team Providers Care Managed Care Provider Name Role Phone Daija Parry DO Primary Care Provider Ely Darling PharmD Unavailable [phone] Reason for Visit * Reason Comments Med Refill Encounter Details Date Type Department Care Team ([facility] st Contact Info) Description 02/11/2024 Refill [facility] MEDICINE 230 [place] [address] Daija Parry DO [address] [place] [address] Hypothyroidism, unspecified type Social History Tobacco Use [...] 02/03/2025 9:45 AM EDT Office Visit [facility] MEDICINE 230 [place] [address] 03/12/2025 2:30 PM EST Office Visit [facility] OPTOMETRY [address] [place] [address] Arielle Farr, OD 230 [place] [address] documented as of this encounter Goals Goal Patient Goal Type Associated Problems Recent Progress Patient-Stated? Author Blood Pressure < 140/90 Blood Pressure 117/87(2024 9:58 AM EDT) No Lopez Marroquin, PharmD Hemoglobin A1c < 7 Result Component 5.9( 2:18 PM EDT) No GregorylogLopez urena, PharmD Record your blood sugar as directed Result Component No Ely Darling PharmD documented as of this encounter Visit Diagnoses Diagnosis Hypothyroidism, unspecified type documented in this encounter Additional Health Concerns Assessment Noted Time PHQ-9 Depression Total Score: 25 024 12:17 PM EDT documented as of this encounter Care Teams Managed Care Provider Relationship Specialty Start Date End Date Daija Parry DO [address] [place] [address] PCP - General Family Medicine 12/22/14 Ely Darling, Ashish [address] [place] [address] Pharmacist Internal Medicine 11/22/22 documented as of this encounter
== END 2024-12-25 13:55 | disposition home or self-care (01) ==
LOC: HO.HGI 12:24
PROVIDERS: PCP Family Medicine; Visit Provider Nurse Practitioner
DX: K31.84 Gastroparesis (principal); K85.90 Acute pancreatitis without necrosis or infection, unspecified; K58.0 Irritable bowel syndrome with diarrhea; D12.6 Benign neoplasm of colon, unspecified; R19.7 Diarrhea, unspecified; R10.10 Upper abdominal pain, unspecified
CPT/HCPCS: 99214

== ENCOUNTER 2025-01-06 08:32 | Day surgery (SDC) | payer OTHER, SELFPAY ==
--- OUTSIDE RECORDS SUMMARY | 2024-12-30 12:24 | XMS_ITS | Encounter Summary ---
Author Organization [email or web address] Address [address] [place] [address] 7t [place] [address] Care Team Providers Care Infection Prevention Practitioner Name Role Phone BrindaDaija Primary Care Provider [phone] Ely Darling PharmD Unavailable Reason for Visit * Reason Comments Med Refill Encounter Details Date Type Department Care Team ([facility] st Contact Info) Description 01/24/2023 Refill [facility] MEDICINE [address] [place] [address] Daphney Roca MD [address] [place] [address] Social History Tobacco Use Types Packs/Day Years [...] Description 02/03/2025 9:45 AM EDT Office Visit [facility] MEDICINE [address] [place] [address] 03/12/2025 2:30 PM EST Office Visit [facility] OPTOMETRY [address] [place], [place] [phone] YordanArielle bernard, OD [address] [place] [address] documented as of this encounter Goals Goal [...] documented as of this encounter Care Teams Infection Prevention Practitioner Relationship Specialty Start Date End Date Daija Parry DO [address] [place] [address] PCP - General Family Medicine 12/22/14 Puia, Ely, PharmD [address] [place] [address] Pharmacist Internal Medicine 11/22/22 documented as of this encounter
--- OUTSIDE RECORDS SUMMARY | 2024-12-30 12:24 | XMS_ITS | Encounter Summary ---
Author Organization [employer] Address [address] [place] [address] 7t [place] [address] Care Team Providers Care Groundwater Programs Director Name Role Phone Daija Parry DO Primary Care Provider [phone] Ely Darling PharmD Unavailable [phone] Encounter Details Date Type Department Care Team (Late st Contact Info) Description 12/25/2024 Orders Only GENERIC EXTERNAL DATA DEPARTMENT Provider, Generic External Data Social History Tobacco Use Types Packs/Day Years [...] Description 02/03/2025 9:45 AM EDT Office Visit [facility] [address] [place] [address] 03/12/2025 2:30 PM EST Office Visit [facility] OPTOMETRY [address] [place], [place] [phone] Yordan, Arielle, OD 230 [place] [address] documented as of this encounter Goals Goal Patient Goal Type Associated Problems Recent Progress Patient-Stated? Author Blood Pressure < 140/90 Blood Pressure 117/87(2024 9:58 AM EDT) No Dellogromel Lopez, PharmD Hemoglobin A1c < 7 Result Component 5.9( 2:18 PM EDT) No Dellogromel Lopez, PharmD Record your blood sugar as directed Result Component No PuEly alan, PharmD documented as of this encounter Procedures Procedure Name Priority Date/Time Associated Diagnosis Comments CBC WITH AUTO DIFFERENTIAL Routine 12/25/2024 3:29 PM EDT LIPASE Routine 12/25/2024 3:29 PM EDT AMYLASE Routine 12/25/2024 3:29 PM EDT COMPREHENSIVE METABOLIC PANEL Routine 12/25/2024 3:29 PM EDT documented in this encounter Results * Lipase (12/25/2024 3:29 PM EDT) Lipase 21 8 - 78 U/L [facility] 12/25/2024 3:29 PM EDT 12/25/2024 3:29 PM EDT Generic External Data Provider LAB BLOOD ORDERAB LES Final Result Performing Organization Address City/[facility]/ZIP Co de Phone Number [facility] [address] [place] [phone] * Amylase (12/25/2024 3:29 PM EDT) Pathologist [facility] Amylase 49 28 - 100 U/L [facility] 12/25/2024 3:29 PM EDT 12/25/2024 3:29 PM EDT Generic External Data Provider LAB BLOOD ORDERAB LES Final Result Performing Organization Address [facility] [[email or web address]] Co de Phone Number [facility] [address] [place] [phone] * (ABNORMAL) Comprehensive Metabolic Panel (12/25/2024 3:29 PM EDT) Pathologist [facility] Sodium 139 135 - 145 mmol/L [facility] Potassium 4.5 3.3 - 5.1 mmol/L [facility] Chloride 106 96 - 108 mmol/L [facility] Carbon Dioxide 27 22 - 29 mmol/L [facility] Anion Gap 11(L) 12 - 20 [facility] Urea Nitrogen (BUN) 11 9 - 16 mg/dL [facility] Creatinine, Serum 0.82 0.5 - 1.4 mg/dL [facility] Estimated Glomerular Filt Rate >60 [facility] Comment:Chronic Kidney Disea se: Estimated GFR < 60 mL/min/1.22h3Oshkwc Kidney Disease: Estimated GFR < 15 mL/min/1.73m2 Glucose 128(H) 60 - 115 mg/dL [facility] Calcium 9.6 8.4 - 10.2 mg/dL [facility] Bilirubin, Total 0.6 0.0 - 1.0 mg/dL [facility] Aspartate Amino Transferase 23 5 - 31 U/L [facility] Alanine Aminotransferase 24 0 - 31 U/L [facility] Total Protein 7.8 6.5 - 8.0 g/dL [facility] Albumin Level 4.4 3.5 - 5.0 g/dL [facility] Alkaline Phosphatase 65 39 - 117 U/L [facility] 12/25/2024 3:29 PM EDT 12/25/2024 3:29 PM EDT us Generic External Data Provider LAB BLOOD ORDERAB LES Final Result [facility] [address] [place] [phone] * (ABNORMAL) CBC auto differential (12/25/2024 3:29 PM EDT) White Blood Count 9.1 4.8 - 10.8 X10*3/uL [facility] Red Blood Count 4.45 4.20 - 5.50 X10*6/uL [facility] Hemoglobin 13.8 12.0 - 16.0 g/dl [facility] Hematocrit 39.3 37.0 - 47.0 % [facility] Mean Corpuscular Volume 88.3 80.0 - 98.0 fL [facility] Mean Corpuscular Hemoglobin 31.0 27.0 - 33.0 pg [facility] Mean Corpuscular HGB Conc 35.1(H) 31.0 - 35.0 g/dl [facility] Red Cell Distribution Width 12.5 11.0 - 16.0 % [facility] Platelet Count 275 160 - 400 X10*3/uL [facility] Mean Platelet Volume 10.0 9.4 - 12.3 fL [facility] Neutrophils Percent Auto 72.8 45 - 73 % [facility] Imm Gran Pct Auto 0.3 0.0 - 0.4 % [facility] Lymphocytes Percent Auto 19.7(L) 20 - 40 % [facility] Monocytes Percent Auto 5.9 2 - 11 % [facility] Eosinophils Percent Auto 1.0 0 - 4 % [facility] Basophils Percent Auto 0.3 0 - 2 % [facility] NRBC Pct Auto 0.0 0.0 - 0.2 /100WBC [facility] Neutrophils Absolute Auto 6.6 2.0 - 8.3 x10*3/uL [facility] Imm Gran Abs Auto 0.03 0.00 - 0.03 X10*3/uL [facility] Lymphocytes Absolute Auto 1.8 1.2 - 4.9 X10*3/uL [facility] Monocytes Absolute Auto 0.5 0.1 - 1.2 X10*3/uL [facility] Eosinophils Absolute Auto 0.1 0.0 - 0.4 X10*3/uL [facility] Basophils Absolute Auto 0.0 0.0 - 0.2 X10*3/uL [facility] NRBC Abs Auto 0.000 0.0 - 0.012 X10*3/uL [facility] 12/25/2024 3:29 PM EDT 12/25/2024 3:29 PM EDT us Generic External Data Provider LAB BLOOD ORDERAB LES Final Result [facility] [address] [place] [phone] documented in this encounter Visit Diagnoses Not on filedocumented in this encounter Additional Health Concerns Assessment Noted Time PHQ-9 Depression Total Score: 22 025 3:28 PM EDT documented as of this encounter Care Teams Groundwater Programs Director Relationship Specialty Start Date End Date Daija Parry DO [address] [place] [address] PCP - General Family Medicine 12/22/14 Ely Darling, PharmD [address] [place] [address] Pharmacist Internal Medicine 11/22/22 documented as of this encounter
--- OUTSIDE RECORDS SUMMARY | 2024-12-30 12:24 | XMS_ITS | Encounter Summary ---
Author Organization [employer] Address [address] [facility] 7t [place] [address] Care Team Providers Care Aircraft Tool Maker Name Role Phone Daija Parry DO Primary Care Provider Ely Darling PharmD Unavailable Reason for Visit * Reason Comments Med Refill Encounter Details Date Type Department Care Team (Late st Contact Info) Description 09/30/2023 Refill [facility] MED & PEDS [address] [place], [place] [phone] Daija Parry DO [address] [facility] [place] [address] Pain Social History Tobacco Use Types Packs/Day [...] Description 02/03/2025 9:45 AM EDT Office Visit [facility] MEDICINE 230 [place] [address] 03/12/2025 2:30 PM EST Office Visit [facility] OPTOMETRY [address] [place] [address] Arielle Farr, OD 230 [place] [address] documented as of this encounter Goals Goal [...] documented as of this encounter Care Teams Aircraft Tool Maker Relationship Specialty Start Date End Date Daija Parry DO [address] [place] [address] PCP - General Family Medicine 12/22/14 Ely Darling PharmD [address] [place] [address] Pharmacist Internal Medicine 11/22/22 documented as of this encounter
--- OUTSIDE RECORDS SUMMARY | 2024-12-30 12:24 | XMS_ITS | Encounter Summary ---
Author Organization [employer] Address [address] [facility] 7t [place] [address] Care Team Providers Care Front End Mechanic Name Role Phone Daija Parry DO Primary Care Provider Ely Darling PharmD Unavailable Reason for Visit * Reason Onset Date Comments Med Refill 08/29/2023 Encounter Details Date Type Department Care Team (Late st Contact Info) Description 08/29/2023 Refill [facility] CHC MED & PEDS [address] [place] [address] Daija Parry DO 230 [facility] [place] [address] Chronic bilateral low back pain, unspecified whether [...] the past 12 months, has t he [employer], gas, oil or water company threatened to [...] Description 02/03/2025 9:45 AM EDT Office Visit [facility] MED[facility] 230 [place] [address] 03/12/2025 2:30 PM EST Office Visit [facility] OPTOMETRY [address] [place] [address] Yordan, Arielle, OD 230 [place] [address] documented as of this encounter Goals Goal [...] documented as of this encounter Care Teams Front End Mechanic Relationship Specialty Start Date End Date Daija Parry DO [address] [place] [address] PCP - General Family Medicine 12/22/14 Ely Darling PharmD [address] [place] [address] Pharmacist Internal Medicine 11/22/22 documented as of this encounter
--- OUTSIDE RECORDS SUMMARY | 2024-12-30 12:24 | XMS_ITS | Encounter Summary ---
Author Organization [employer] Address [address] [place] [address] 7t [place] [address] Care Team Providers Care Golf Course Architect Name Role Phone Daija Parry DO Primary Care Provider Lopez Marroquin PharmD Unavailable Unavail able Ely Darling PharmD Unavailable Reason for Visit * Reason Onset Date Comments Med Refill 06/12/2022 Encounter Details Date Type Department Care Team (Late st Contact Info) Description 06/12/2022 Refill [facility] MED[facility]INE [address] [place] [address] Daija Parry DO 230 [place], [place] [phone] Generalized anxiety disorder (Primary Dx) Social History [...] (Ambien) 10 MG tablet Please sent to [facility] - [place], [place] - [address] [place] [address] documented in this encounter Plan of Treatment Upcoming Encounters Date Type Department Care Team (Late st Contact Info) Description 02/03/2025 9:45 AM EDT Office Visit [facility] MEDICINE [address] [place] [address] 03/12/2025 2:30 PM EST Office Visit [facility] OPTOMETRY [address] [place] [address] Arielle Farr, OD 230 [place], [place] documented as of this encounter Visit Diagnoses Diagnosis Generalized anxiety disorder- Primary documented in this encounter Additional Health Concerns Assessment Noted Time PHQ-9 Depression Total Score: 24 023 11:12 AM EST documented as of this encounter Care Teams Golf Course Architect Relationship Specialty Start Date End Date Daija Parry DO [address] [place], [place] PCP - General Family Medicine 12/22/14 Lopez Marroquin, PharmD [address] [place] [address] Pharmacist Internal Medicine 06/25/22 11/22/22 Ely Darling PharmD [address] [place] [address] Pharmacist Internal Medicine 11/22/22 documented as of this encounter
--- OUTSIDE RECORDS SUMMARY | 2024-12-30 12:24 | XMS_ITS | Encounter Summary ---
Author Organization [employer] Address [address] [facility] [address] [place] [address] Care Team Providers Care Wind Farm Support Specialist Name Role Phone Daija Parry DO Primary Care Provider Ely Darling PharmD Unavailable Reason for Visit * Reason Onset Date Comments Med Refill 09/09/2023 Encounter Details Date Type Department Care Team (Late st Contact Info) Description 09/09/2023 Refill [facility] [address] [place], [place] [id number] Daija Parry DO [address] [facility] [address] Chronic bilateral low back pain, unspecified whether [...] the past 12 months, has t he [employer], gas, oil or water company threatened to [...] Description 02/03/2025 9:45 AM EDT Office Visit [facility] [address] [place] [address] 03/12/2025 2:30 PM EST Office Visit [facility] [address] [place] [address] Yordan, Arielle, OD [address] [place] [address] documented as of this encounter Goals Goal [...] documented as of this encounter Care Teams Wind Farm Support Specialist Relationship Specialty Start Date End Date Daija Parry DO [address] [place] [address] PCP - General Family Medicine 12/22/14 Ely Darling PharmD [address] [place] [address] Pharmacist Internal Medicine 11/22/22 documented as of this encounter
--- OUTSIDE RECORDS SUMMARY | 2024-12-30 12:24 | XMS_ITS | Encounter Summary ---
Author Organization [employer] Address [address] [place] [address] 7 [place] [address] Care Team Providers Care Yeast Culture Operator Name Role Phone Daija Parry DO Primary Care Provider [phone] Ely Darling PharmD Unavailable [phone] Reason for Visit * Reason Comments Med Refill Encounter Details Date Type Department Care Team ([facility] st Contact Info) Description 02/11/2024 Refill [facility] [address] [place] [address] Daija Parry DO [address] [place] [address] Hypothyroidism, unspecified type Social History Tobacco Use [...] with others, in a hotel, in a fpc, living outside on the street, on a [...] Office Visit [facility] [address] [place] [address] 03/12/2025 2:30 PM EST Office Visit [facility] [address] [place] [address] Arielle Farr, OD [address] [place] [address] documented as of this encounter Goals Goal [...] documented as of this encounter Care Teams Yeast Culture Operator Relationship Specialty Start Date End Date Daija Parry DO [address] [place] [address] PCP - General Family Medicine 12/22/14 Ely Darling, Ashish [address] [place] [address] Pharmacist Internal Medicine 11/22/22 documented as of this encounter
--- OUTSIDE RECORDS SUMMARY | 2024-12-30 12:24 | XMS_ITS | Encounter Summary ---
Author Organization [employer] Address [address] [place] [address] [address] [place] [address] Care Team Providers Care Medical Billing Representative Name Role Phone Daija Parry DO Primary Care Provider [phone] Ely Darling PharmD Unavailable [phone] Reason for Visit * Reason Onset Date Comments Med Refill 02/07/2024 Encounter Details Date Type Department Care Team ([facility] st Contact Info) Description 02/07/2024 Telephone [facility] [address] [place] [address] Daija Parry DO [address] [place] [address] Med Refill Social History Tobacco Use Types [...] 50 MG tablet To be sent to: [facility] - [place], [place] - [address] [facility] documented in this encounter Plan of Treatment Upcoming Encounters Date Type Department Care Team (Late st Contact Info) Description 02/03/2025 9:45 AM EDT Office Visit [facility] [address] [place] [address] 03/12/2025 2:30 PM EST Office Visit [facility] [address] [place] [address] Arielle Farr, OD [address] [place] [address] documented as of this encounter Goals Goal [...] documented as of this encounter Care Teams Medical Billing Representative Relationship Specialty Start Date End Date Daija Parry DO [address] [place] [address] PCP - General Family Medicine 12/22/14 Puia, Ely, PharmD [address] [place] [address] Pharmacist Internal Medicine 11/22/22 documented as of this encounter
--- OUTSIDE RECORDS SUMMARY | 2024-12-30 12:24 | XMS_ITS | Clinical Summary ---
Author Organization [employer] Address [address] [place] [address] 7[address] [place] [address] Care Team Providers Care Riding Instructor Name Role Phone Brinda Daija Primary Care Provider [phone] Ely Darling PharmD Unavailable [phone] Allergies Active Allergy Reactions Criticality Noted Date Comments Cefuroxime Hives High 07/15/2015 Medications * This document contains information received from the source organization and may not represent a complete record from that organization. pantoprazole (ProtoNix) 40 MG EC tablet Take 1 tablet by mouth 2 times daily. Active pancrelipase, Fuv-Vthd-Rlmh, (Creon) 17460-92818 units capsule Take 2 capsules by mouth [...] anxiety. Active ergocalciferol (Vitamin D2) 1.25 MG (66816 UT) capsuleIndicati ons:Vitamin D deficiency Take 1 capsule (1.25 mg) by mouth 1 (one) time per week. 5 capsule 3 024 Active alosetron (Lotronex) 1 MG tablet Take 1 mg by mouth 2 times daily. 024 Active Alcohol Swabs (Alcohol Prep) padsIndications :Type 2 diabetes mellitus without complication, without long-term current use of insulin (CMS/[facility]) Use one pad BID when checking blood glucose 100 each 11 Active glucose blood (FREESTYLE LITE) test stripIndication s:Type 2 diabetes mellitus without complication, without long-term current use of insulin ([facility]) Use to monitor blood glucose twice daily 100 each Active TRUEplus Lancets 33G miscIndications :Type 2 diabetes mellitus without complication, without long-term current use of insulin ([facility]) Use to test blood sugar 2 time(s) daily 100 each 11 024 Active Blood Glucose Monitoring Suppl (FreeStyle [place] Lite) w/Device kit Use to test blood sugar 3 times daily 1 kit Active Skin Protectants, Misc. (Minerin Creme) cream APPLY TOPICALLY TO DRY SKIN TWICE DAILY NEEDED 454 g 5 024 Active ondansetron (Zofran) 4 MG tablet TAKE 1 TABLET BY MOUTH THREE TIMES DAILY NEEDED FOR NAUSEA AND VOMITING Active Nystop 316458 UNIT/GM powder APPLY TOPICALLY TO THE AFFECTED [...] long-term current use of insulin (CMS/[facility]) INJECT ONE PEN (=0.75MG) SUBCUTANEOUSLY ONCE [...] 025 Active ergocalciferol (Vitamin D2) 1.25 MG (05199 UT) capsule TAKE 1 CAPSULE BY MOUTH [...] complication, without long-term current use of insulin ([facility]) Take 1 tablet (10 mg) by [...] complication, without long-term current use of insulin ([facility]) Take 1 tablet (10 mg) by [...] PRN Indication: lumbar spondylosis with myelopathy Last SHIPFITTER HELPER Agreement: 03/04/24 Tier: 2 (Q3mo SHIPFITTER HELPER) - eval 10/28/24 by PCP Assessment & [...] main strength. Pt currently has services with [facility] for psychiatry and is also in wait list for OP individual therapy. clinician engaged patient with active/reflective listening. Reviewed and assessed for risk, current stressors and protective factors using open-ended questions. clinician will provide follow-up BE for additional support. Provided [facility] contact information. Chronic, continuous use of opioids 01/01/2024 Overview (03/04/2024): Dx: Chronic Back Pain with Sciatica Rx: Tramadol 50mg Q6 hours Tier 2, visits every 3 months SHIPFITTER HELPER Agreement signed: 03/04/24 Additional considerations: Restrictive lung [...] including pharm and non- pharm modalities -See college instructor regarding pill count/utox Assessment & Plan (09/02/2024 1:39 PM EDT): -Good engagement and participation with Group Medical Visit model -Encouraged multifactorial approach to pain control including pharm and non- pharm modalities -UTOX as expected, pill count 2 short. See college instructor Assessment & Plan (06/03/2024 2:35 PM EST): [...] organization. Date Type Department Care Team Description 12/25/2024 Orders Only GENERIC EXTERNAL DATA DEPARTMENT Provider, Generic External Data 12/22/2024 Refill [facility] [address] [place] [address] Daija Parry DO Essential hypertension; Hypothyroidism, unspecified type; Chronic bilateral low back pain with bilateral sciatica 12/02/2024 9:45 AM EDT Office Visit [facility] [address] [place] [address] Phalen, Chloé, NIGHT CUSTODIAN Spondylosis, lumbar, with myelopathy (Primary Dx); Long-term current use of opiate analgesic 12/02/2024 Refill [facility] [address] [place] [address] Daija Parry DO Type 2 diabetes mellitus without complication, without long-term current use of insulin ([facility]) 12/02/2024 Travel 12/01/2024 Refill [facility] [address] [place] [address] Daija Parry DO Type 2 diabetes mellitus without complication, without long-term current use of insulin ([facility]) 11/24/2024 Refill [facility]S [address] [place] [address] Pretty Greene MD Chronic bilateral low back pain with bilateral sciatica 11/14/2024 Refill [facility] [address] [place] [address] Daija Parry DO Essential hypertension 11/09/2024 Refill [facility] [address] [place] [address] Daija Parry DO Pain 10/28/2024 9:45 AM EDT Office Visit [facility] [address] [place] [address] XavierenChloé, NIGHT CUSTODIAN Spondylosis, lumbar, with myelopathy (Primary Dx); Long-term current use of opiate analgesic 10/28/2024 Telephone [facility] [address] [place] [address] Lakesha Graham, RN SHIPFITTER HELPER Tier 2 10/28/2024 Travel 10/24/2024 Refill [facility] [address] [place] [address] Daija Parry DO 10/15/2024 Refill [facility] [address] [place] [address] Daija Parry DO 10/13/2024 Refill [facility] [address] [place] [address] Daija Parry DO Chronic bilateral low back pain with bilateral sciatica 10/02/2024 Telephone [facility] [address] [place] [address] Daija Parry DO Nurse Triage 09/30/2024 9:45 AM EDT Office Visit [facility] [address] [place] [address] Chloé Wilson, NIGHT CUSTODIAN Spondylosis, lumbar, with myelopathy (Primary Dx); Long-term current use of opiate analgesic 09/30/2024 Telephone [facility] [address] [place] [address] Lakesha Graham, LONG Pill count 09/30/2024 Refill [facility] [address] [place] [address] Daija Parry DO Hypothyroidism, unspecified type 09/30/2024 Telephone [facility] [address] [place], [place] [phone] Lakesha Graham, RN Tramadol count discrep 09/30/2024 [...] [facility] [address] [place] [address] 03/12/2025 2:30 PM EST Office Visit [facility] OPTOMETRY [address] [place] [address] Yordan, Arielle, OD [address] [place] [address] Health Maintenance Due Date Last Done Comments [...] this topic Meningococcal Vaccine Aged Out No juvecnio caryn eligible based on patient's age to [...] 5.9( 2:18 PM EDT) No Lopez Marroquin, PharmMahin Record your blood sugar as directed Result Component No Ely Darling PharmD Procedures Procedure Name Priority Date/Time Associated Diagnosis Comments LIPASE Routine 12/25/2024 3:29 PM EDT AMYLASE Routine 12/25/2024 3:29 PM EDT COMPREHENSIVE METABOLIC PANEL Routine 12/25/2024 3:29 PM EDT CBC WITH AUTO DIFFERENTIAL Routine 12/25/2024 3:29 PM EDT POCT BENITO-14 URINE DRUG SCREEN Routine 12/02/2024 [...] Relevant to Health Maintenance Results * (ABNORMAL) CBC auto differential (12/25/2024 3:29 PM EDT) White Blood Count 9.1 4.8 - 10.8 X10*3/uL [facility] Red Blood Count 4.45 4.20 - 5.50 X10*6/uL [facility] Hemoglobin 13.8 12.0 - 16.0 g/dl [facility] Hematocrit 39.3 37.0 - 47.0 % [facility] Mean Corpuscular Volume 88.3 80.0 - 98.0 fL [facility] Mean Corpuscular Hemoglobin 31.0 27.0 - 33.0 pg [facility] Mean Corpuscular HGB Conc 35.1(H) 31.0 - 35.0 g/dl [facility] Red Cell Distribution Width 12.5 11.0 - 16.0 % [facility] Platelet Count 275 160 - 400 X10*3/uL [facility] Mean Platelet Volume 10.0 9.4 - 12.3 fL [facility] Neutrophils Percent Auto 72.8 45 - 73 % [facility] Imm Gran Pct Auto 0.3 0.0 - 0.4 % [facility] Lymphocytes Percent Auto 19.7(L) 20 - 40 % [facility] Monocytes Percent Auto 5.9 2 - 11 % [facility] Eosinophils Percent Auto 1.0 0 - 4 % [facility] Basophils Percent Auto 0.3 0 - 2 % [facility] NRBC Pct Auto 0.0 0.0 - 0.2 /100WBC [facility] Neutrophils Absolute Auto 6.6 2.0 - 8.3 x10*3/uL [facility] Imm Gran Abs Auto 0.03 0.00 - 0.03 X10*3/uL [facility] Lymphocytes Absolute Auto 1.8 1.2 - 4.9 X10*3/uL [facility] Monocytes Absolute Auto 0.5 0.1 - 1.2 X10*3/uL [facility] Eosinophils Absolute Auto 0.1 0.0 - 0.4 X10*3/uL [facility] Basophils Absolute Auto 0.0 0.0 - 0.2 X10*3/uL [facility] NRBC Abs Auto 0.000 0.0 - 0.012 X10*3/uL [facility] 12/25/2024 3:29 PM EDT 12/25/2024 3:29 PM EDT Generic External Data Provider LAB BLOOD ORDERAB LES Final Result Performing Organization Address [facility] Co de Phone Number [facility] [address] [place] [phone] * Lipase (12/25/2024 3:29 PM EDT) Lipase 21 8 - 78 U/L [facility] 12/25/2024 3:29 PM EDT 12/25/2024 3:29 PM EDT Generic External Data Provider LAB BLOOD ORDERAB LES Final Result Performing Organization Address [facility] Co de Phone Number [facility] [address] [place] [phone] * Amylase (12/25/2024 3:29 PM EDT) Amylase 49 28 - 100 U/L [facility] 12/25/2024 3:29 PM EDT 12/25/2024 3:29 PM EDT us Generic External Data Provider LAB BLOOD ORDERAB LES Final Result Performing Organization Address City/[facility] Co de Phone Number [facility] [address] [place] [address] [phone] * (ABNORMAL) Comprehensive Metabolic Panel (12/25/2024 3:29 PM EDT) Sodium 139 135 - 145 mmol/L [facility] Potassium 4.5 3.3 - 5.1 mmol/L [facility] Chloride 106 96 - 108 mmol/L [facility] Carbon Dioxide 27 22 - 29 mmol/L [facility] Anion Gap 11(L) 12 - 20 [facility] Urea Nitrogen (BUN) 11 9 - 16 mg/dL [facility] Creatinine, Serum 0.82 0.5 - 1.4 mg/dL [facility] Estimated Glomerular Filt Rate >60 [facility] Comment:Chronic Kidney Disea se: Estimated GFR < 60 mL/min/1.51q1Jihmif Kidney Disease: Estimated GFR < 15 mL/min/1.73m2 Glucose 128(H) 60 - 115 mg/dL [facility] Calcium 9.6 8.4 - 10.2 mg/dL [facility] Bilirubin, Total 0.6 0.0 - 1.0 mg/dL [facility] Aspartate Amino Transferase 23 5 - 31 U/L [facility] Alanine Aminotransferase 24 0 - 31 U/L [facility] Total Protein 7.8 6.5 - 8.0 g/dL [facility] Albumin Level 4.4 3.5 - 5.0 g/dL [facility] Alkaline Phosphatase 65 39 - 117 U/L [facility] 12/25/2024 3:29 PM EDT 12/25/2024 3:29 PM EDT us Generic External Data Provider LAB BLOOD ORDERAB LES Final Result [facility] [address] [place] [address] [phone] * POCT BENITO-14 Urine Drug Screen (12/02/2024 [...] - 12/02/2024 10:24 AM EDT .UTOX cup Lot#[id number] Exp. 01/13/26 Internal Pass Control Chloé CONNOR POINT OF CARE TEST ENTER/EDIT ORDERABLES Final Result * Albumin, Random Urine W/Creatinine (07/15/2024 3:00 PM EDT) Creatinine, Urine 205.32 mg/dL [facility] Microalbumin Urine 29.0 mg/L [facility] Microalbum Creatinine Ratio Ur 14.1 <30 ug/mg cr [facility] Comment:Albumin/Creatinine R atio Reference Ranges: Normal: < 30 ug/mg creatinine Microalbuminuria: 30 - 300 ug/mg creatinineClinical Albuminuria: > 300 ug/mg creatinine Urine (Urine, Random) 07/15/2024 3:00 PM EDT 07/15/2024 4:11 PM EDT Daija Parry DO LAB URINE ORDERABLES Final R esult [facility] [address] [place] [phone] * Hepatitis C Antibody with Reflex to HCV, RNA, Quantitative, Real-Time PCR (07/15/2024 2:18 PM EDT) Hepatitis C Antibody Nonreactive Nonreactive [facility] Comment:Antibodies to HCV no t detected; does not exclude early acuteHCV infection. Blood Venous blood specimen / Unknown 07/15/2024 2:18 PM EDT 07/15/2024 2:18 PM EDT Daija Parry DO LAB BLOOD ORDERABLES Final R esult Performing Organization Address City/[facility]/ZIP Co de Phone Number [facility] [address] [place] [address] [phone] * HIV-1/2 Antigen and Antibodies, Fourth Generation, with Reflexes (07/15/2024 2:18 PM EDT) HIV AB/AG Nonreactive Nonreactive [facility] Comment:HIV-1 p24 Ag and/or HIV-1/HIV-2 Ab not detected.A test result that is nonreactive does not exclude thepossibility of exposure to or infection with HIV-1 and/orHIV-2. Nonreactive results in this assay for individualswith prior exposure to HIV-1 and/or HIV-2 may be due toantigen and antibody levels that are below the limit ofdetection of this assay.The PeerPong HIV Ag/Ab Combo assay result andsupplemental assay results should be interpreted inconjunction with the patient's clinical presentation,history and other laboratory results. If the results areinconsistent with clinical evidence, additional testing issuggested to confirm the result. Blood Venous blood specimen / Unknown 07/15/2024 2:18 PM EDT 07/15/2024 2:18 PM EDT us Daija Parry DO LAB BLOOD ORDERABLES Final R esult Performing Organization Address City/[facility]/ZIP Co de Phone Number [facility] [address] [place] [address] [phone] * Hemoglobin A1c (07/15/2024 2:18 PM EDT) Hemoglobin A1c 5.9 <6.0 % [facility] Comment:Hemoglobin A1C Refer ence Range Adults: 4.8 - 6.0 % Non diabetic: < 6.0 % Goal: < 7.0 %Additional Action Suggested: > 8.0 %Note: Hemoglobin A1c results are invalid for patients with abnormal amounts of HbF. Blood transfusions may impact the HbA1c concentration in the patient sample. Estimated Average Glucose 123 mg/dL [facility] Comment:eAG = Estimated ave rage glucose which is %A1C expressed asaverage glucose, using the formula of the C7L-YlolidkDwevsvr Glucose study (ADAG), Diabetes Care, Vol.31,#8,2007 Blood Venous blood specimen / Unknown 07/15/2024 2:18 PM EDT 07/15/2024 2:18 PM EDT us Daija Parry DO LAB BLOOD ORDERABLES Final R esult [facility] [address] [place] [phone] * Lipid Panel, Standard (07/15/2024 2:18 PM EDT) Triglycerides 81 <150 mg/dL [facility] Comment:Desirable Triglyceri de: less than 150 mg/dLBorderline High Triglyceride 150-199 mg/dLHigh Triglyceride: 200-499 mg/dLVery High Triglyceride: greater than or equal to 5OO mg/dL Cholesterol 166 <200 mg/dL [facility] Comment:Desirable Cholestero l: less than 200 mg/dLBorderline High Cholesterol: 200-239 mg/dLHigh Cholesterol: greater than 239 mg/dL LDL Cholesterol Calculated 93 <100 mg/dL [facility] Comment:Desirable LDL: less than 100 mg/dLNear Optimal/Above Optimal LDL: 110- 129 mg/dLBorderline High LDL: 130-159 mg/dLHigh LDL: 160-189 mg/dLVery High LDL: greater than or equal to 190 mg/dL HDL Cholesterol 57 >40 mg/dL [facility] Comment:Desirable HDL: great er than 40 mg/dL Note: This HDL assay may give artificially low results in patients with liver disease. Blood Venous blood specimen / Unknown 07/15/2024 2:18 PM EDT 07/15/2024 2:18 PM EDT Daija Parry DO LAB BLOOD ORDERABLES Final R esult [facility] [address] [place] [phone] * BI Mammogram Screening Tomosynthesis Bilateral (02/14/2024 12:07 PM EST) Anatomical Region Laterality Modality Breast Bilateral Mammography 02/14/2024 12:0 7 PM EST Narrative 02/22/2024 4:11 PM EST [address] [place] [address] Mammography Report Signed Patient: Shereen Cuellar MR#: [id number] : 1975 Acct:[id number] Age/Sex: 48 / F ADM Date: 02/14/24 Loc: HO.MAMMO Attending Dr: Daija aPrry DO Ordering Physician: Daija Parry DO Results: 1N egative Date of Service: 02/14/24 Follow Up: 1 Year From Orig ina Mammogram Procedure(s): MM tomosynthesis screening BI Accession Number(s): [id number] cc: Daija Parry DO EXAMINATION: MM SCREENING [...] 02/22/24 1608 DD/ 1207 TD/TT: 02/14/24 1223 Garde Manager: Procedure Note Donotuseinterpreter, Image - [facility]/22/20[facility] [address] [place], [place] [address] Mammography Report Signed Patient: Kira Cuellar#: [id number] : 1975Acct:[id number] Age/Sex: 48 / FADM Date: 02/14/24 Loc: HO.MAMMO Attending Dr: Daija Parry DO Ordering Physician: Daija Parry DORbryanults: 1N egative Date of Service: 02/14/24Follow Up: 1 Year From Orig inal Mammogram Procedure(s): MM tomosynthesis screening BI Accession Number(s): [id number] cc: Daija Parry DO EXAMINATION: MM SCREENING [...] 02/22/24 1608 DD/ 1207 TD/TT: 02/14/24 1223 Garde Manager: Daija Parry DO IMG BI PROCEDURES Final Resu lt * THINPREP TIS PAP (11/24/2020 6:42 AM EDT) Clinical Information: None given [facility] COMMENT SEE COMMENT FOUNDATI ON [...] has been evaluated with computer assisted technology. [facility] Bottling Equipment Sales Representative : SEE COMMENT [facility] Comment: ED, CT(ASCP) CT screening location: [place] [address] Interpretation/R esult: Negative for intraepithelial lesion or malignancy. [facility] LMP: NONE GIVEN FOUNDAT[facility] N [facility] SYSTEM PATHOLOGIST: SEE COMMENT [facility] Comment: Sera Guzman M.D. Direct , Board Certified in Anatomic and Clinical Pathology and Cytopathology (electronic signature) Consulting Pathologist [facility] [address] [place] [address] Prev. BX: NONE [facility]IVEN [facility] N [facility] Prev. PAP: NONE GIVEN FOUNDATI ON LAB SYSTEM SOURCE: Cervix [facility] Statement Of Adequacy: SEE COMMENT [facility] Comment: Satisfactory for evaluation. Endocervical/transformation zone component present. Age and/or menstrual status not provided 11/24/2020 6:42 AM EDT us Daija Parry DO LAB PATHOLOGY ORDERABLES Fin al Result [facility] [address] [place] [phone], * Hm Colonoscopy (08/15/2012 8:08 AM EDT) Historical Provider HEALTH MAINTENANCE Final Result from Last 3 Months or Most Recently Relevant to Health Maintenance Insurance [facility] < [address] [place] [address] [facility] Care Teams Riding Instructor Relationship Specialty Start Date End Date Daija Parry DO [address] [place] [address] PCP - General Family Medicine 12/22/14 Ely Darling PharmD [address] [place] [phone] Pharmacist Internal Medicine 11/22/22
--- OUTSIDE RECORDS SUMMARY | 2024-12-30 12:24 | XMS_ITS | Encounter Summary ---
Author Organization [employer] Address [address] [place] [address] [address] [place] [address] Care Team Providers Care Trench Digger Helper Name Role Phone KianaDaija murguia Primary Care Provider Ely Darling PharmD Unavailable [phone] Reason for Visit * Reason Comments Med Refill Encounter Details Date Type Department Care Team (Late Contact Info) Description 12/16/2022 Refill [facility] MEDICINE [address] [place] [address] Daphney Roca MD [address] [place] [address] Mild persistent asthma, unspecified whether complicated Social [...] 02/03/2025 9:45 AM EDT Office Visit [facility] MEDICINE [address] [place], [place] [phone] 03/12/2025 2:30 PM EST Office Visit [facility] OPTOMETRY [address] [place], [place] [phone] Arielle Farr, OD [address] [place] [address] documented as of this encounter Goals Goal [...] documented as of this encounter Care Teams Trench Digger Helper Relationship Specialty Start Date End Date Daija Parry DO [address] [place] [address] PCP - General Family Medicine 12/22/14 Ely Darling PharmD [address] [place] [address] Pharmacist Internal Medicine 11/22/22 documented as of this encounter
--- OUTSIDE RECORDS SUMMARY | 2024-12-30 12:24 | XMS_ITS | Encounter Summary ---
Author Organization [email or web address] Address [address] [place] [address] 7[address] [place] [address] Care Team Providers Care Resourcing Advisor Name Role Phone Daija Parry DO Primary Care Provider Ely Darling PharmD Unavailable [phone] Reason for Visit * Reason Onset Date Comments Appointment Request 10/19/2023 Encounter Details Date Type Department Care Team ([facility] st Contact Info) Description 10/19/2023 Telephone [facility] MEDICINE [address] [place], [place] [phone] Daija Parry DO [address] [place] [address] Appointment Request Social History Tobacco Use Types [...] with others, in a hotel, in a snf, living outside on the street, on a [...] Description 02/03/2025 9:45 AM EDT Office Visit [facility] MEDICINE [address] [place] [address] 03/12/2025 2:30 PM EST Office Visit [facility] OPTOMETRY [address] [place] [address] Yordan, Arielle, OD [address] [place] [address] documented as of this encounter Goals Goal [...] documented as of this encounter Care Teams Resourcing Advisor Relationship Specialty Start Date End Date Daija Parry DO [address] [place] [address] PCP - General Family Medicine 12/22/14 Ely Darling PharmD [address] [place] [address] Pharmacist Internal Medicine 11/22/22 documented as of this encounter
--- OUTSIDE RECORDS SUMMARY | 2024-12-30 12:24 | XMS_ITS | Encounter Summary ---
Author Organization [employer] Address [address] [place] [address] 7t [place] [address] Care Team Providers Care Compensation/Benefits Specialist Name Role Phone Daija Parry DO Primary Care Provider Ely Darling PharmD Unavailable [phone] Reason for Visit * Reason Onset Date Comments Appointment Request 04/03/2023 Encounter Details Date Type Department Care Team ([facility] st Contact Info) Description 04/03/2023 Telephone [facility] MEDICINE [address] [place], [place] [phone] Daija Parry DO [address] [place] [address] Appointment Request Social History Tobacco Use Types [...] seen for headaches due to CPAP machine continuity writer did offer to triage this call patient refused due to being out of town and is returning on 04/21/2023 documented in this encounter Plan of Treatment Upcoming Encounters Date Type Department Care Team (Late st Contact Info) Description 02/03/2025 9:45 AM EDT Office Visit [facility] MEDICINE [address] [place] [address] 03/12/2025 2:30 PM EST Office Visit [facility] OPTOMETRY [address] [place] [address] Arielle Farr, OD 230 [place] [address] documented as of this encounter Goals Goal [...] documented as of this encounter Care Teams Compensation/Benefits Specialist Relationship Specialty Start Date End Date Daija Parry DO [address] [place] [address] PCP - General Family Medicine 12/22/14 Ely Darling PharmD [address] [place] [address] Pharmacist Internal Medicine 11/22/22 documented as of this encounter
--- OUTSIDE RECORDS SUMMARY | 2024-12-30 12:24 | XMS_ITS | Encounter Summary ---
Author Organization [employer] Address [address] [place] [address] 7t [place] [address] Care Team Providers Care Surgical Services Assistant Name Role Phone Daija Parry DO Primary Care Provider Lopez Marroquin PharmD Unavailable Unavail able Ely Darling PharmD Unavailable Reason for Visit * Reason Onset Date Comments Med Refill 06/12/2022 Encounter Details Date Type Department Care Team (Late st Contact Info) Description 06/12/2022 Telephone [facility] MEDICINE [address] [place] [address] Daija Parry DO [address] [place], [place] [phone] Med Refill Social History Tobacco Use Types [...] (KlonoPIN) 0.5 MG tablet Please sent to [facility] [place] [facility] documented in this encounter Plan of Treatment Upcoming Encounters Date Type Department Care Team (Late st Contact Info) Description 02/03/2025 9:45 AM EDT Office Visit [facility] MEDICINE 230 [facility] [place] [address] 03/12/2025 2:30 PM EST Office Visit [facility] OPTOMETRY [address] [place] [address] Arielle Farr, OD 230 [facility] [place] [address] documented as of this encounter Visit Diagnoses Not on filedocumented in this encounter Additional Health Concerns Assessment Noted Time PHQ-9 Depression Total Score: 24 023 11:12 AM EST documented as of this encounter Care Teams Surgical Services Assistant Relationship Specialty Start Date End Date Daija Parry DO [address] [place] [address] PCP - General Family Medicine 12/22/14 Lopez Marroquin, AugustoD [address] [place] [address] Pharmacist Internal Medicine 06/25/22 11/22/22 Ely Darling PharmD [address] [place] [address] Pharmacist Internal Medicine 11/22/22 documented as of this encounter
--- OUTSIDE RECORDS SUMMARY | 2024-12-30 12:24 | XMS_ITS | Encounter Summary ---
Author Organization [employer] Address [address] [place] [address] 7t [place] [address] Care Team Providers Care International Marketing Specialist Name Role Phone Daija Parry DO Primary Care Provider Lopez Marroquin PharmD Unavailable Unavail able Ely Darling PharmD Unavailable Reason for Visit * Reason Onset Date Comments Durable Medical Equipment 05/10/2022 Encounter Details Date Type Department Care Team (Late st Contact Info) Description 05/10/2022 Telephone [facility] MEDICINE [address] [place] [address] Daija Parry DO [address] [place], [place] [phone] Durable Medical Equipment Social History Tobacco Use [...] non fragrance wipes Please contact valentin at [phone] documented in this encounter Plan of Treatment Upcoming Encounters Date Type Department Care Team (Late st Contact Info) Description 02/03/2025 9:45 AM EDT Office Visit [facility] MEDICINE [address] [place] [address] 03/12/2025 2:30 PM EST Office Visit [facility] OPTOMETRY [address] [place], [place] [phone] Arielle Farr, OD [address] [place] [address] documented as of this encounter Visit Diagnoses Not on filedocumented in this encounter Additional Health Concerns Assessment Noted Time PHQ-9 Depression Total Score: 24 022 10:57 AM EST documented as of this encounter Care Teams International Marketing Specialist Relationship Specialty Start Date End Date Daija Parry DO 230 [place] [address] PCP - General Family Medicine 12/22/14 Lopez Marroquin, AugustoD [address] [place], [place] Pharmacist Internal Medicine 06/25/22 11/22/22 Ely Darling PharmD [address] [place] [address] Pharmacist Internal Medicine 11/22/22 documented as of this encounter
--- OUTSIDE RECORDS SUMMARY | 2024-12-30 12:24 | XMS_ITS | Encounter Summary ---
Author Organization [employer] Address [address] [place] [address] 7t [place] [address] Care Team Providers Care Rocket Assembly Operator Name Role Phone Daija Parry DO Primary Care Provider Ely Darling PharmD Unavailable Encounter Details Date Type Department Care Team ([facility] st Contact Info) Description 12/01/2024 Refill [facility] MEDICINE [address] [place], [place] [phone] Daija Parry DO 230 [place] [address] Type 2 diabetes mellitus without complication, without long-term current use of insulin ([facility]) Social History Tobacco Use Types Packs/Day [...] Visit [facility] MEDICINE [address] [place] [address] 03/12/2025 2:30 PM EST Office Visit [facility] OPTOMETRY [address] [place] [address] Arielle Farr, OD 230 [place] [address] documented as of this encounter Goals Goal [...] complication, without long-term current use of insulin ([facility]) documented in this encounter Additional Health Concerns Assessment Noted Time PHQ-9 Depression Total Score: 22 025 3:28 PM EDT documented as of this encounter Care Teams Rocket Assembly Operator Relationship Specialty Start Date End Date Daija Parry DO [address] [place] [address] PCP - General Family Medicine 12/22/14 Ely Darling PharmD [address] [place] [address] Pharmacist Internal Medicine 11/22/22 documented as of this encounter
--- OUTSIDE RECORDS SUMMARY | 2024-12-30 12:24 | XMS_ITS | Encounter Summary ---
Author Organization [employer] Address [address] [place] [address] 7t [place] [address] Care Team Providers Care Health Companion Name Role Phone Daija Parry DO Primary Care Provider Lopez Marroquin PharmD Unavailable Unavail able Ely Darling PharmD Unavailable Encounter Details Date Type Department Care Team ([facility] Contact Info) Description 05/15/2022 Telephone [facility] MEDICINE [address] [place] [address] Daija Parry DO 230 [place] [address] Social History Tobacco Use Types Packs/Day Years [...] Upcoming Encounters Date Type Department Care Team ([facility] Contact Info) Description 02/03/2025 9:45 AM EDT Office Visit [facility] MEDICINE [address] [place] [address] 03/12/2025 2:30 PM EST Office Visit [facility] OPTOMETRY [address] [place] [address] Arielle Farr, LATRICIA 230 [place] [address] documented as of this encounter Visit Diagnoses Not on filedocumented in this encounter Additional Health Concerns Assessment Noted Time PHQ-9 Depression Total Score: 24 022 10:57 AM EST documented as of this encounter Care Teams Health Companion Relationship Specialty Start Date End Date Daija Parry DO 230 [place] [address] PCP - General Family Medicine 12/22/14 Lopez Marroquin, AugustoD 230 [place] [address] Pharmacist Internal Medicine 06/25/22 11/22/22 Ely Darling, AugustoD 230 [place] [address] Pharmacist Internal Medicine 11/22/22 documented as of this encounter
--- OUTSIDE RECORDS SUMMARY | 2024-12-30 12:24 | XMS_ITS | Encounter Summary ---
Author Organization [employer] Address [address] [place] [address] 7t [place] [address] Care Team Providers Care Juvenile Justice Specialist Name Role Phone Daija Parry DO Primary Care Provider Lopez Marroquin PharmD Unavailable Unavail able Ely Darling PharmD Unavailable Reason for Visit * Reason Onset Date Comments Appointment Request 06/27/2022 Encounter Details Date Type Department Care Team (Late st Contact Info) Description 06/27/2022 Telephone [facility] MEDICINE [address] [place] [address] Daija Parry DO [address] [place] [address] Appointment Request Social History Tobacco Use Types [...] r/s appt for 06/27/2022 Office visit extended. Anesthesia Technician tried booking but noavailable spaces. Please contact pt at [phone] documented in this encounter Plan of Treatment Upcoming Encounters Date Type Department Care Team (Late st Contact Info) Description 02/03/2025 9:45 AM EDT Office Visit [facility] MEDICINE [address] [place] [address] 03/12/2025 2:30 PM EST Office Visit [facility] OPTOMETRY [address] [place] [address] Yordan, Arielle, OD [address] [place] [address] documented as of this encounter Goals Goal [...] documented as of this encounter Care Teams Juvenile Justice Specialist Relationship Specialty Start Date End Date Daija Parry DO 230 [place] [address] PCP - General Family Medicine 12/22/14 Dellogono, Lopez, PharmD 230 [place] [address] Pharmacist Internal Medicine 06/25/22 11/22/22 Ely Darling, AugustoD 230 [place] [address] Pharmacist Internal Medicine 11/22/22 documented as of this encounter
--- OUTSIDE RECORDS SUMMARY | 2024-12-30 12:24 | XMS_ITS | Encounter Summary ---
Author Organization [employer] Address [address] [place] [address] [address]t [place] [address] Care Team Providers Care Dry Chain Puller Name Role Phone Daija Parry DO Primary Care Provider Ely Darling PharmD Unavailable Reason for Visit * Reason Comments Med Refill Encounter Details Date Type Department Care Team (Late st Contact Info) Description 01/01/2023 Refill [facility] MEDICINE [address] [place] [address] Daija Parry DO [address] [place] [address] Social History Tobacco Use Types Packs/Day Years [...] Description 02/03/2025 9:45 AM EDT Office Visit [facility] MEDICINE [address] [place] [address] 03/12/2025 2:30 PM EST Office Visit [facility] OPTOMETRY [address] [place] [address] Arielle Farr, OD 230 [place] [address] documented as of this encounter Goals Goal [...] documented as of this encounter Care Teams Dry Chain Puller Relationship Specialty Start Date End Date Daija Parry DO 230 [place] [address] PCP - General Family Medicine 12/22/14 Ely Darling, PharmD [address] [place] [address] Pharmacist Internal Medicine 11/22/22 documented as of this encounter
--- OUTSIDE RECORDS SUMMARY | 2024-12-30 12:25 | XMS_ITS | Encounter Summary ---
Author Organization [employer] Address [address] [place] [address] 7t h Floor [place] [phone] Care Team Providers Care Technical Editor Name Role Phone Daija Parry DO Primary Care Provider Ely Darling PharmD Unavailable Reason for Visit * Reason Onset Date Comments Med Refill 05/15/2024 Encounter Details Date Type Department Care Team (Late st Contact Info) Description 05/15/[address] [facility] MEDICINE 230 [place] [address] Daija Parry DO 230 [place] [address] Pain Social History Tobacco Use Types Packs/Day [...] AM EDT Office Visit [facility] MEDICINE 230 [place] [address] 03/12/2025 2:30 PM EST Office Visit [facility] OPTOMETRY [address] [place] [address] Arielle Farr, OD 230 [place] [address] documented as of this encounter Goals Goal [...] documented as of this encounter Care Teams Technical Editor Relationship Specialty Start Date End Date Daija Parry DO 230 [place] [address] PCP - General Family Medicine 12/22/14 Ely Darling PharmD 230 [place] [address] Pharmacist Internal Medicine 11/22/22 documented as of this encounter
--- OUTSIDE RECORDS SUMMARY | 2024-12-30 12:25 | XMS_ITS | Encounter Summary ---
Author Organization [employer] Address [address] [place] [address] 7t [place] [address] Care Team Providers Care Architecture Instructor Name Role Phone Daija Parry DO Primary Care Provider Ely Darling PharmD Unavailable Encounter Details Date Type Department Care Team ([facility] st Contact Info) Description 07/19/2023 Orders Only [facility] MEDICINE [address] [place] [address] ProviderAnnel MD Social History Tobacco Use Types [...] Description 02/03/2025 9:45 AM EDT Office Visit [facility] MEDICINE [address] [place] [address] 03/12/2025 2:30 PM EST Office Visit [facility] OPTOMETRY [address] [place] [address] Yordan, Arielle, OD 230 [place] [address] documented as of this encounter Goals Goal [...] documented as of this encounter Care Teams Architecture Instructor Relationship Specialty Start Date End Date Daija Parry DO [address] [place] [address] PCP - General Family Medicine 12/22/14 Ely Darling PharmD 230 [place] [address] Pharmacist Internal Medicine 11/22/22 documented as of this encounter
--- OUTSIDE RECORDS SUMMARY | 2024-12-30 12:25 | XMS_ITS | Clinical Summary ---
Author Organization [facility] Address [address] [place] [address] Phone Care Team Providers Care Head Of Drama Name Role Phone Daija Parry DO Primary [...] Do not crush or chew. Active pancrelipase, Azq-Hjcr-Iycy, (Creon) 26167-87515 units capsule Take 1 capsule by mouth [...] 9.6 8.7 - 10.7 mg/dL eGFR Non-Afr Grenadian 100 Total Bilirubin 0.4 MG/DL Bilirubin Direct [...] Most Recently Relevant to Health Maintenance Insurance [facility] One Care Dual SNP ([id number]) 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
--- OUTSIDE RECORDS SUMMARY | 2024-12-30 12:25 | XMS_ITS | Encounter Summary ---
Author Organization [employer] Address [address] [place] [address] 7t [place] [address] Care Team Providers Care Cadastral Surveyor Name Role Phone Daija Parry DO Primary Care Provider Lopez Marroquin PharmD Unavailable Unavail able Ely Darling PharmD Unavailable Encounter Details Date Type Department Care Team ([facility] Contact Info) Description 03/13/2022 Orders Only [facility] MEDICINE [address] [place] [address] Daija Parry DO [address] [place] [address] Social History Tobacco Use Types Packs/Day Years [...] Encounters Date Type Department Care Team ([facility] Contact Info) Description 02/03/2025 9:45 AM EDT Office Visit [facility] MEDICINE [address] [place] [address] 03/12/2025 2:30 PM EST Office Visit [facility] OPTOMETRY [address] [place], [place] [phone] Arielle Farr, OD [address] [place] [address] documented as of this encounter Procedures Procedure [...] 10:15 AM EDT) Creatinine, Urine 326.51 mg/dL [facility] Microalbumin Urine 24.0 mg/L [facility] Microalbum Creatinine Ratio Ur 7.3 <30 ug/mg cr [facility] Comment:Albumin/Creatinine R atio Reference Ranges: Normal: < 30 ug/mg creatinine Microalbuminuria: 30 - 300 ug/mg creatinineClinical Albuminuria: > 300 ug/mg creatinine 01/02/2023 10:1 5 AM EDT 01/02/2023 11:37 AM EDT us Daija Parry DO LAB URINE ORDERABLES Final R esult [facility] [address] [place] [address] [phone] * (ABNORMAL) TSH (06/29/2022 3:06 PM EDT) Thyroid Stimulating Hormone 8.15(H) 0.32 - 4.0 uIU/mL [facility] Comment:Note: A sustained TS H level above 2.5 uIU/mL may warrant further investigation. TSH 3rd Generation ([facility]) 06/29/2022 3:06 PM EDT 06/29/2022 3:06 PM EDT [facility] External Provider LAB BLO OD ORDERABLES Final Result Performing Organization Address [facility]/ZIP Co de Phone Number [facility] [address] [place] [phone] * T4, Free (06/29/2022 3:06 PM EDT) Pathologist [facility] Free T4 (Free Thyroxine) 0.77 0.71 - 1.85 ng/dL [facility] 06/29/2022 3:06 PM EDT 06/29/2022 3:06 PM EDT [facility] External Provider LAB BLO OD ORDERABLES Final Result Performing Organization Address [facility] Co de Phone Number [facility] [address] [place] [phone] * (ABNORMAL) Basic Metabolic Panel (06/29/2022 3:06 PM EDT) Pathologist [facility] Sodium 138 135 - 145 mmol/L [facility] Potassium 4.3 3.3 - 5.1 mmol/L [facility] Comment:Slight Hemolysis Chloride 104 96 - 108 mmol/L [facility] Carbon Dioxide 27 22 - 29 mmol/L [facility] Anion Gap 11(L) 12 - 20 [facility] Urea Nitrogen (BUN) 13 9 - 16 mg/dL [facility] Creatinine, Serum 0.71 0.5 - 1.4 mg/dL [facility] Estimated Glomerular Filt Rate >60 [facility] Comment:NOTE: For -Am erican individuals, multiply the result by 1.210.Chronic Kidney Disease: Estimated GFR < 60 mL/min/1.81v1Atsesf Kidney Disease: Estimated GFR < 15 mL/min/1.73m2 Glucose 113 60 - 115 mg/dL [facility] Calcium 9.2 8.4 - 10.2 mg/dL [facility] 06/29/2022 3:06 PM EDT 06/29/2022 3:06 PM EDT [facility] External Provider LAB BLO OD ORDERABLES Final Result Performing Organization Address [facility] Co de Phone Number [facility] [address] [place] [phone] * Hemoglobin A1c (06/29/2022 3:06 PM EDT) Hemoglobin A1c 6.7 % [facility] Comment:Hemoglobin A1C Refer ence Range Adults: 4.8 - 6.0 % Non diabetic: < 6.0 % Goal: < 7.0 %Additional Action Suggested: > 8.0 %Note: Hemoglobin A1c results are invalid for patients with abnormal amounts of HbF. Blood transfusions may impact the HbA1c concentration in the patient sample. Estimated Average Glucose 146 mg/dL [facility] Comment:eAG = Estimated ave rage glucose which is %A1C expressed asaverage glucose, using the formula of the R1Z-VpibjewTrptuld Glucose study (ADAG), Diabetes Care, Vol.31,#8,Nov. 2007 06/29/2022 3:06 PM EDT 06/29/2022 3:06 PM EDT [facility] External Provider LAB BLO OD ORDERABLES Final Result Performing Organization Address [facility] Co de Phone Number [facility] [address] [place] [phone] * (ABNORMAL) CBC auto differential (06/29/2022 3:06 PM EDT) White Blood Count 9.9 4.8 - 10.8 X10*3/uL [facility] Red Blood Count 4.49 4.20 - 5.50 X10*6/uL [facility] Hemoglobin 13.8 12.0 - 16.0 g/dl [facility] Hematocrit 40.2 37.0 - 47.0 % [facility] Mean Corpuscular Volume 89.5 80.0 - 98.0 fL [facility] Mean Corpuscular Hemoglobin 30.7 27.0 - 33.0 pg [facility] Mean Corpuscular HGB Conc 34.3 31.0 - 35.0 g/dl [facility] Red Cell Distribution Width 13.2 11.0 - 16.0 % [facility] Platelet Count 277 160 - 400 X10*3/uL [facility] Mean Platelet Volume 9.3(L) 9.4 - 12.3 fL [facility] Neutrophils Percent Auto 74.2(H) 45 - 73 % [facility] Imm Gran Pct Auto 0.4 0.0 - 0.4 % [facility] Lymphocytes Percent Auto 17.4(L) 20 - 40 % [facility] Monocytes Percent Auto 7.1 2 - 11 % [facility] Eosinophils Percent Auto 0.6 0 - 4 % [facility] Basophils Percent Auto 0.3 0 - 2 % [facility] NRBC Pct Auto 0.0 0.0 - 0.2 /100WBC [facility] Neutrophils Absolute Auto 7.4 2.0 - 8.3 x10*3/uL [facility] Imm Gran Abs Auto 0.04(H) 0.00 - 0.03 X10*3/uL [facility] Lymphocytes Absolute Auto 1.7 1.2 - 4.9 X10*3/uL [facility] Monocytes Absolute Auto 0.7 0.1 - 1.2 X10*3/uL [facility] Eosinophils Absolute Auto 0.1 0.0 - 0.4 X10*3/uL [facility] Basophils Absolute Auto 0.0 0.0 - 0.2 X10*3/uL [facility] NRBC Abs Auto 0.000 0.0 - 0.012 X10*3/uL [facility] 06/29/2022 3:06 PM EDT 06/29/2022 3:06 PM EDT us [facility] External Provider LAB BLO OD ORDERABLES Final Result [facility] [address] [place] [address] [phone] documented in this encounter Visit Diagnoses Not on filedocumented in this encounter Additional Health Concerns Assessment Noted Time PHQ-9 Depression Total Score: 24 022 10:57 AM EST documented as of this encounter Care Teams Cadastral Surveyor Relationship Specialty Start Date End Date Daija Parry DO [address] [place] [address] PCP - General Family Medicine 12/22/14 Lopez Marroquin, PharmD [address] [place] [address] Pharmacist Internal Medicine 06/25/22 11/22/22 Ely Darling, AugustoD [address] [place] [address] Pharmacist Internal Medicine 11/22/22 documented as of this encounter
--- OUTSIDE RECORDS SUMMARY | 2024-12-30 12:25 | XMS_ITS | Encounter Summary ---
Author Organization [employer] Address [address] [place] [address] [address] [place] [address] Care Team Providers Care Wet Plant Operator Name Role Phone Daija Parry DO Primary Care Provider Ely Darlnig PharmD Unavailable Reason for Visit * Reason Onset Date Comments Nurse Triage 10/02/2024 Encounter Details Date Type Department Care Team ([facility] st Contact Info) Description 10/02/2024 Telephone [facility] [address], [place] [phone] Daija Parry DO [address] [place] [address] Nurse Triage Social History Tobacco Use Types [...] to Shereen Cuellar to triage below at [phone]. Reports having nausea, abd pain and diarrhea. Pt states very watery with green stools. Pt denies an new foods, recent med changes or use of abx. No sick contacts. Intermittent abd pain. Per pt upper abdominal pain. Pt taking pantoprazole with no relief. Pt advised of disposition, agrees to seek [facility] for exam as no sick on site availability on teams at time of call. Reviewed [facility] operating hours and that wait times vary.Reviewed [...] caller accepted this outcome. Contact pt at [phone] documented in this encounter Plan of Treatment Upcoming Encounters Date Type Department Care Team (Late st Contact Info) Description 02/03/2025 9:45 AM EDT Office Visit [facility] [address] [place] [address] 03/12/2025 2:30 PM EST Office Visit [facility] [address] [place], [place] [phone] Arielle Farr, OD [address] [place] [address] documented as of this encounter Goals Goal [...] documented as of this encounter Care Teams Wet Plant Operator Relationship Specialty Start Date End Date Daija Parry DO [address] [place] [address] PCP - General Family Medicine 12/22/14 Puia, Ely, PharmD [address] [place] [address] Pharmacist Internal Medicine 11/22/22 documented as of this encounter
[2025-01-02 15:46] VITALS: BMI 53.8
--- NOTE | 2025-01-05 09:23 | HO.ANESPROP2 ---
Documented by User: Kelly Leon NP 01/05/25 09:37 HPI - Anesthesia Eval Consult details Narrative: 49yo F for Cystoscopy Bladder Botox Injection s/p same 06/2024 with GA-LMA 4 BMI 53.8 [facility] [place] Cardiology eval 06/2024 as new patient for atypical CP. EKG/Echo ok. Rec'd Coronary CTA but not completed. Hx congenital pulmonary arteriovenous malformation - no intervention yet. Possible embolization with IR. Anesthesia Pre-Procedure Meds Is the patient on any of the following meds?: GLP1/DPP4 and SGLT2 Inhib PMFSH Active Problems Active Problems: All Active Problems Upper abdominal pain (Acute) Acute diarrhea (Acute) Precordial chest pain (Acute) MDD (major depressive disorder), recurrent episode, moderate (Acute) Overactive bladder (Acute) Tubular adenoma of colon (Acute) Pancreatitis (Acute) Sacroiliac joint dysfunction of right side (Acute) Lumbar radiculopathy (Acute) Proteinuria (Acute) Spondylosis of lumbar region without myelopathy or radiculopathy (Acute) Mixed incontinence urge and stress (Acute) Patellofemoral arthralgia of both knees (Acute) Urinary retention (Acute) Left lateral epicondylitis (Acute) Nocturia more than twice per night (Acute) Obstructive sleep apnea (Acute) Morbidly obese (Acute) Irritable bowel syndrome with diarrhea (Acute) Gastroparesis (Acute) Pulmonary arteriovenous malformation (Acute) Urinary retention (Acute) Interstitial cystitis (Acute) Spinal stenosis of lumbar region (Acute) Chronic pain syndrome (Acute) Spondylosis, lumbar, with myelopathy (Acute) Restrictive lung disease (Acute) Allergic rhinitis (Acute) AISHWARYA on CPAP (Acute) Past Medical History Medical History Epicondylitis, lateral Nocturnal hypoxemia Dyspnea Hemorrhoids Pulmonary arteriovenous malformation Morbid obesity with BMI of 50.0-59.9, adult Recent bereavement Depression Morning headache Daytime somnolence Diabetes Asthma Pre-op examination Family history of colon cancer Greater trochanteric bursitis of left hip Greater trochanteric bursitis of right hip Hirsutism Varicose veins with pain Restless leg syndrome Congenital pulmonary arteriovenous malformation Fungal infection of skin of abdomen Diabetes mellitus Urinary frequency Patellofemoral arthralgia of right knee Obstructive sleep apnea Hypothyroidism Hypertension Urinary retention Left forearm pain Interstitial cystitis Spinal stenosis of lumbar region Chronic pain syndrome Disc degeneration, lumbar Spondylosis, lumbar, with myelopathy Morbid obesity due to excess calories Arthritis Fibromyalgia Migraines Hypothyroid Restrictive lung disease Allergic rhinitis AISHWARYA on CPAP Nausea and vomiting GERD (gastroesophageal reflux disease) Family History Family History Father Alcoholism Mother Leukemia Maternal Aunt Breast cancer Sister Depression Vertigo Family/Other Heart problem Diabetes Cancer Brother Atherosclerotic cardiovascular disease Cardiomegaly Family history of problems with anesthesia: No Surgical History Surgical History (Updated 01/02/25 @ 15:47 by Xiomy Cook RN) Hx of spinal surgery Hx of cystoscopy (06/30/24) Hx of colonoscopy History of esophagogastroduodenoscopy (EGD) History of Problems with Anesthesia: No Social History Social History Household Members: Family Household Members Other:: Niece and great nieces and nephews Housing: Apartment Are you a primary healthcare educator to a significant other at home: No Do you presently have visiting nurse or other home services: No Alcohol intake: never Comment: NONE Patient Tobacco Use Status: Never used Tobacco e-Cigarette/Vaping Use: Never Used Second Hand Smoke Exposure: No Substance Use Type: Marijuana Advance Directives: No Advance Directives Information Provided: Yes service: No Current occupational status: disabled 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 Sexual orientation: Decline to Answer Meds Allergies Allergy/AdvReac Type Severity Reaction Status Date / Time cefuroxime (From CEFTIN) Allergy Severe HIVES Verified 01/06/25 09:10 Home Medications ?Medication ?Instructions ?Recorded ?Confirmed ?Last Taken ?Type tramadol 50 mg tablet 50 mg PO Q6H PRN severe pain 01/31/24 01/06/25 Unknown History verapamil 240 mg 24 hr 240 mg PO QAM 01/31/24 01/06/25 Unknown History capsule,extended release dulaglutide 0.75 mg/0.5 mL 0.75 mg subcut QWEEK 05/09/24 01/06/25 12/27/24 History subcutaneous pen injector (Trulicity) empagliflozin 10 mg tablet 10 mg PO QAM 05/09/24 01/06/25 12/27/24 History (Jardiance) fluticasone furoate 200 1 inh inhalation DAILY 06/26/24 01/06/25 Unknown History mcg/actuation blister powder for inhalation (Arnuity Ellipta) furosemide 20 mg tablet 20 mg PO DAILY 07/25/24 01/06/25 Unknown History ibuprofen 800 mg tablet 800 mg PO 3XD 07/25/24 01/06/25 12/27/24 History levothyroxine 200 mcg tablet 200 mcg PO DAILY 07/25/24 01/06/25 Unknown History losartan 100 mg tablet 100 mg PO DAILY 07/25/24 01/06/25 Unknown History mineral oil-hydrophil petrolat topical BID PRN Skin Irritation 07/25/24 10/13/24 Unknown History topical ointment (petrolatum topical ointment) montelukast 10 mg tablet 10 mg PO DAILY 07/25/24 01/06/25 Unknown History paroxetine HCl 20 mg tablet 20 mg PO DAILY 07/25/24 01/06/25 Unknown History cholecalciferol (vitamin D3) 50 50 mcg PO QAM 11/05/24 01/06/25 Unknown History mcg (2,000 unit) capsule (Vitamin D3) hydralazine 100 mg tablet 100 mg PO DAILY 11/05/24 01/06/25 Unknown History hydrochlorothiazide 25 mg tablet 25 mg PO DAILY 11/05/24 01/06/25 Unknown History levothyroxine 75 mcg tablet 75 mcg PO QAM 11/05/24 01/06/25 Unknown History loperamide 2 mg capsule 4 mg PO Q8H PRN Loose Stool 11/05/24 01/06/25 Unknown History Exam Height,Weight and Vital Signs: Height 5 ft 1 in Weight 129.274 kg Pertinent Lab Results Pertinent Lab Results: Laboratory Tests 12/25/24 15:29 WBC 9.1 Hgb 13.8 Hct 39.3 Plt Count 275 Sodium 139 Potassium 4.5 Chloride 106 Carbon Dioxide 27 BUN 11 Creatinine 0.82 Narrative Narrative: EKG 06/2024 EKG Details: EKG with underlying sinus rhythm at 90/Min; cannot exclude old inferior infarct but more likely from body habitus; normal DE and corrected QT. ECHO 06/2024 Conclusions: - 1. Normal LV ejection fraction 55-60% with mild asymmetric septal hypertrophy 2. Cardiac valvular Dopplers within normal limits Assessment and Plan Assessment Anesthesia Assessment: Chart Reviewed Final Anesthetic Review Family History of Problems with Anesthesia: No History of Problems with Anesthesia: No Documented by User: Jorge Carpenter MD 01/06/25 09:30 [facility] Past Medical History Medical History Epicondylitis, lateral Nocturnal hypoxemia Dyspnea Hemorrhoids Pulmonary arteriovenous malformation Morbid obesity with BMI of 50.0-59.9, adult Recent bereavement Depression Morning headache Daytime somnolence Diabetes Asthma Pre-op examination Family history of colon cancer Greater trochanteric bursitis of left hip Greater trochanteric bursitis of right hip Hirsutism Varicose veins with pain Restless leg syndrome Congenital pulmonary arteriovenous malformation Fungal infection of skin of abdomen Diabetes mellitus Urinary frequency Patellofemoral arthralgia of right knee Obstructive sleep apnea Hypothyroidism Hypertension Urinary retention Left forearm pain Interstitial cystitis Spinal stenosis of lumbar region Chronic pain syndrome Disc degeneration, lumbar Spondylosis, lumbar, with myelopathy Morbid obesity due to excess calories Arthritis Fibromyalgia Migraines Hypothyroid Restrictive lung disease Allergic rhinitis AISHWARYA on CPAP Nausea and vomiting GERD (gastroesophageal reflux disease) Family History Family History Father Alcoholism Mother Leukemia Maternal Aunt Breast cancer Sister Depression Vertigo Family/Other Heart problem Diabetes Cancer Brother Atherosclerotic cardiovascular disease Cardiomegaly Surgical History Surgical History (Updated 01/02/25 @ 15:47 by Xiomy Cook, LONG) Hx of spinal surgery Hx of cystoscopy (06/30/24) Hx of colonoscopy History of esophagogastroduodenoscopy (EGD) Social History Social History Household Members: Family Household Members Other:: Niece and great nieces and nephews Housing: Apartment Are you a primary healthcare educator to a significant other at home: No Do you presently have visiting nurse or other home services: No Alcohol intake: never Comment: NONE Patient Tobacco Use Status: Never used Tobacco e-Cigarette/Vaping Use: Never Used Second Hand Smoke Exposure: No Substance Use Type: Marijuana Advance Directives: No Advance Directives Information Provided: Yes service: No Current occupational status: disabled 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 Sexual orientation: Decline to Answer Meds Allergies Allergy/AdvReac Type Severity Reaction Status Date / Time cefuroxime (From CEFTIN) Allergy Severe HIVES Verified 01/06/25 09:10 Home Medications ?Medication ?Instructions ?Recorded ?Confirmed ?Last Taken ?Type tramadol 50 mg tablet 50 mg PO Q6H PRN severe pain 01/31/24 01/06/25 Unknown History verapamil 240 mg 24 hr 240 mg PO QAM 01/31/24 01/06/25 Unknown History capsule,extended release dulaglutide 0.75 mg/0.5 mL 0.75 mg subcut QWEEK 05/09/24 01/06/25 12/27/24 History subcutaneous pen injector (Trulicity) empagliflozin 10 mg tablet 10 mg PO QAM 05/09/24 01/06/25 12/27/24 History (Jardiance) fluticasone furoate 200 1 inh inhalation DAILY 06/26/24 01/06/25 Unknown History mcg/actuation blister powder for inhalation (Arnuity Ellipta) furosemide 20 mg tablet 20 mg PO DAILY 07/25/24 01/06/25 Unknown History ibuprofen 800 mg tablet 800 mg PO 3XD 07/25/24 01/06/25 12/27/24 History levothyroxine 200 mcg tablet 200 mcg PO DAILY 07/25/24 01/06/25 Unknown History losartan 100 mg tablet 100 mg PO DAILY 07/25/24 01/06/25 Unknown History mineral oil-hydrophil petrolat topical BID PRN Skin Irritation 07/25/24 10/13/24 Unknown History topical ointment (petrolatum topical ointment) montelukast 10 mg tablet 10 mg PO DAILY 07/25/24 01/06/25 Unknown History paroxetine HCl 20 mg tablet 20 mg PO DAILY 07/25/24 01/06/25 Unknown History cholecalciferol (vitamin D3) 50 50 mcg PO QAM 11/05/24 01/06/25 Unknown History mcg (2,000 unit) capsule (Vitamin D3) hydralazine 100 mg tablet 100 mg PO DAILY 11/05/24 01/06/25 Unknown History hydrochlorothiazide 25 mg tablet 25 mg PO DAILY 11/05/24 01/06/25 Unknown History levothyroxine 75 mcg tablet 75 mcg PO QAM 11/05/24 01/06/25 Unknown History loperamide 2 mg capsule 4 mg PO Q8H PRN Loose Stool 11/05/24 01/06/25 Unknown History Exam Airway Mallampati Class: II TM Dist: <=3cm Neck ROM: Full Loose/Missing/Broken Teeth: No Heart: ok Lungs: ok Assessment and Plan Assessment Anesthesia Assessment: Anesthesia Plan Discussed Final Anesthetic Review NPO: Yes ASA Class: III Final Preanesthetic Review: No Changes in Pt Med Stat, Meds/Allgs Chart Reviewed, Consent Obtained/Reviewed and Anes Risks/Benef Reviewed Patient Risk: Intermediate Procedure Risk: Low Anesthetic Plan Anesthetic Plan: GA and Agree w/ Assess. and Plan Disposition: Standard PACU
[2025-01-06 09:08] LABS: UPreg QC Valid YES
[2025-01-06 09:12] VITALS: BP 126/94; PULSE 74; RESP 18; TEMP 36.6; O2SAT 97; BMI 53.8
[2025-01-06] MEDS: Lactated Ringers 1,000 ML 100 ML IVCONT (09:26)
--- NOTE | 2025-01-06 09:31 | MHC.SHP ---
Pre-Procedural Eval Section A - 24 Hr Update-Section A only Date of Service: 01/06/25 The patient is an INPATIENT: No The patient has been examined within 24 hours of the surgical procedure. The History & Physical has been completed within 30 days and I have reviewed it.: Yes Section B - Complete if H&P > 30 days Chief Complaint: Overactive bladder Allergies: Allergies Allergy/AdvReac Type Severity Reaction Status Date / Time cefuroxime (From CEFTIN) Allergy Severe HIVES Verified 01/06/25 09:10 Plan Diagnosis/Plan: Unchanged I have reviewed the history and physical and performed a pertinent physical examination on my patient. No changes have occurred unless specified. Cystoscopy bladder Botox injection 100 units. I have discussed risks to include hematuria, UTI, urinary retention, need to repeat procedure for sustained efficacy. Time Spent With Patient Time: Total time managing care of this patient today ____ minutes.
[2025-01-06 09:33] LABS: Glucose, Whole Blood 152 mg/dL (60-115)
--- NOTE | 2025-01-06 10:11 | W.PM.OPN ---
Operative Note Operative Note Date of Service: 01/06/25 Narrative: PREOP DIAGNOSIS: Overactive bladder-- OAB POSTOP DIAGNOSIS: OAB PROCEDURE: CYSTOSCOPY, BLADDER BOTOX INJECTION 100 UNITS SURGEON: Bella Sierra MD ANESTHESIA: General Details of procedure: The patient was brought into the operating room placed on the OR table in supine position. Antibiotics confirmed. General anesthesia was administered. The patient was repositioned into lithotomy position, prepped and draped in the usual sterile fashion. Time-out was done per protocol. A 22 fr cystoscope was placed transurethrally into the bladder. Urine was sent for culture. The right and left ureteral orifices were visualized. There were moderate trabeculations noted. There were no suspicious bladder lesions seen. The Botox 100 units was mixed with 10 cc of normal saline and transurethral injections were placed into the posterior wall of the bladder. 0.5cc placed at each injection site. Injections were placed in a grid 5 across and 4 longitudinally. Injections were placed from the inferior to superior position. 2% lidocaine urojet was passed transurethrally into the bladder. The patient was brought out of anesthesia and taken to recovery in stable condition. Complications: None EBL: minimal (<5 mL) Drains: none
[2025-01-06 10:14] VITALS: BP 109/65; PULSE 92; RESP 20; TEMP 36.3; O2SAT 92
[2025-01-06 10:15] VITALS: BP 117/48; PULSE 94; RESP 16; O2SAT 97
[2025-01-06 10:20] VITALS: BP 134/73; PULSE 85; RESP 16; O2SAT 97
[2025-01-06 10:25] VITALS: BP 136/73; PULSE 76; RESP 18; O2SAT 98
[2025-01-06 10:34] VITALS: BP 131/84; PULSE 73; RESP 18; TEMP 36.1; O2SAT 98
== END 2025-01-06 12:01 | disposition home or self-care (01) ==
PROVIDERS: Anesthesiology; PCP Family Medicine; Visit Provider Urology
PROC: 3E0K8GC Introduction of Other Therapeutic Substance into Genitourinary Tract, Via Natural or Artificial Opening Endoscopic (ICD-10-PCS; CPT 52287; principal; 2025-01-06 11:00)
DX: N30.10 Interstitial cystitis (chronic) without hematuria (principal); N32.81 Overactive bladder; N32.89 Other specified disorders of bladder; J98.4 Other disorders of lung; E66.01 Morbid (severe) obesity due to excess calories; Z68.43 Body mass index [BMI] 50.0-59.9, adult; J45.909 Unspecified asthma, uncomplicated; I10 Essential (primary) hypertension; E11.9 Type 2 diabetes mellitus without complications; G89.4 Chronic pain syndrome; M79.7 Fibromyalgia; M48.061 Spinal stenosis, lumbar region without neurogenic claudication; G43.909 Migraine, unspecified, not intractable, without status migrainosus; E03.9 Hypothyroidism, unspecified; G47.33 Obstructive sleep apnea (adult) (pediatric); Z79.899 Other long term (current) drug therapy; Z99.89 Dependence on other enabling machines and devices; Z88.1 Allergy status to other antibiotic agents
CPT/HCPCS: 52287; 81025; 82947; 87086; J0585; J1956; J2003; J2405; J2704; J3010

== ENCOUNTER → 2025-01-06 08:32 | Outpatient (BNV) | payer OTHER, SELFPAY | PROVIDERS: PCP Family Medicine; Visit Provider Urology | DX: N32.81 Overactive bladder (principal) | CPT/HCPCS: 52287 ==

== ENCOUNTER 2025-01-20 09:45 | Outpatient (REF) | payer OTHER, SELFPAY ==
[2025-01-20 11:50] LABS: Anion Gap 10 (12-20); Blood Urea Nitrogen 17 mg/dL (9-16); Calcium 9.0 mg/dL (8.4-10.2); Carbon Dioxide 28 mmol/L (22-29); Chloride 106 mmol/L (96-108); Estimated Glomerular Filt Rate > 60; Potassium 4.2 mmol/L (3.3-5.1); Sodium 140 mmol/L (135-145)
== END 2025-01-20 09:46 | disposition home or self-care (01) ==
LOC: HO.LAB 09:45
PROVIDERS: Absent Provider Nurse Practitioner Family; PCP Family Medicine; Visit Provider Urology
DX: N30.10 Interstitial cystitis (chronic) without hematuria (principal); N32.81 Overactive bladder; N39.46 Mixed incontinence; R07.2 Precordial pain
CPT/HCPCS: 36415; 51798; 80048

== ENCOUNTER 2025-01-21 10:08 | Outpatient (REF) | payer OTHER, SELFPAY ==
--- OUTSIDE RECORDS SUMMARY | 2025-01-21 09:00 | XMS_ITS | Encounter Summary ---
Author Organization [employer] Address [address] [place] [address] [place] [address] Care Team Providers Care Business Continuity Strategy Director Name Role Phone Daija Parry DO Primary Care Provider [phone] Ely Darling PharmD Unavailable [phone] Reason for Referral * Medications - Closed Specialty Diagnoses / Procedures Referred By Sivakumar campos Referred To Contact Diagnoses Mild persistent asthma with acute exacerbation Daija Parry DO [address] [place] [address] Phone: tel: fax: Referral ID Status Reason Start Date Expiration Date Visits Re quested Visits Authorized [id number] Closed 1 1 Encounter Details Date Type Department Care Team (Latest Contact Info) Description 01/21/2025 9:00 AM EDT Office Visit [facility] [address] [place] [address] Daija Parry DO [address] [place] [address] Type 2 diabetes mellitus without complication, without long-term current use of insulin (HCC) (Primary Dx); Essential hypertension; Other hyperlipidemia; Hypothyroidism, unspecified type; Major depression, recurrent, chronic (CMS/HCC); Chest pain, unspecified type; Mild persistent asthma with acute exacerbation; AISHWARYA (obstructive sleep apnea); Chronic gastroesophageal reflux disease; Chronic migraine; Chronic bilateral low back pain with bilateral sciatica; Fibromyalgia; Acute hip pain, bilateral; Forgetfulness; Fatigue, unspecified type; Healthcare maintenance; Dietary counseling; Exercise counseling; Cough, unspecified type; Mild persistent asthma, unspecified whether complicated; Encounter for immunization; Encounter for vaccination Social History Tobacco Use Types Packs/Day Years Used Date Smoking Tobacco: Former Cigarettes Passive Smoke Exposure: Never Smokeless Tobacco: Never [...] AM EDT documented as of this encounter Last Filed Vital Signs Vital Sign Reading Time Taken Comments Blood Pressure 132/78 01/21/2025 8:56 AM EDT Pulse 90 01/21/2025 8:56 AM EDT Temperature 36.6 C (97.9 F) 01/21/2025 8:56 AM EDT Respiratory Rate 21 01/21/2025 8:56 AM EDT Oxygen Saturation 97% 01/21/2025 8:56 AM EDT Inhaled Oxygen Concentration - - Weight 132 kg (291 lb 4 oz) 01/21/2025 8:56 AM E DT Height 154.9 cm (5' 1 ) 01/21/2025 8:56 AM EDT Body Mass Index 55.03 01/21/2025 8:56 AM EDT documented in this encounter Plan of Treatment Upcoming Encounters Date Type Department Care Team (Late st Contact Info) Description 02/03/2025 9:45 AM EDT Office Visit [facility] [address] [place] [address] 03/12/2025 2:30 PM EST Office Visit [facility] OPTOM[facility] [address] [place], [place] [id number] Yordan, Arielle, OD [address] [place] [address] Scheduled Orders Name Type Priority Associated Diagnoses Orde r Schedule T4, Free Lab Routine Type 2 diabetes mellitus without complication, without long-term current use of insulin (HCC) Expected: 01/21/2025 (Approximate), Expires: 01/21/2026 Vitamin D, 25-Hydroxy, Total, Immunoassay Lab Routine Type 2 diabetes mellitus without complication, without long-term current use of insulin (HCC) Expected: 01/21/2025 (Approximate), Expires: 01/21/2026 Lipid Panel, Standard Lab Routine Type 2 diabetes mellitus without complication, without long-term current use of insulin (HCC) Expected: 01/21/2025 (Approximate), Expires: 01/21/2026 TSH Lab Routine Type 2 diabetes mellitus without complication, without long-term current use of insulin (HCC) Expected: 01/21/2025 (Approximate), Expires: 01/21/2026 Hepatic Function Panel Lab Routine Type 2 diabetes mellitus without complication, without long-term current use of insulin (HCC) Expected: 01/21/2025 (Approximate), Expires: 01/21/2026 Basic Metabolic Panel Lab Routine Type 2 diabetes mellitus without complication, without long-term current use of insulin (HCC) Expected: 01/21/2025 (Approximate), Expires: 01/21/2026 documented as of this encounter Goals Goal Patient Goal Type Associated Problems Recent Progress Patient-Stated? Author Blood Pressure < 140/90 Blood Pressure 132/78(2024 8:56 AM EDT) No Lopez Marroquin, PharmMahin Hemoglobin A1c < 7 Result Component 6.3( 10:13 AM EDT) No Lopez Marroquin PharmMahin Record your blood sugar as directed Result Component No Ely Darling PharmD documented as of this encounter Procedures Procedure Name Priority Date/Time Associated Diagnosis Comments ALBUMIN, RANDOM URINE W/CREATININE Routine 01/21/2025 10:13 AM EDT Type 2 diabetes mellitus without complication, without long-term current use of insulin (HCC) CBC Routine 01/21/2025 10:13 AM EDT Type 2 diabetes mellitus without complication, without long-term current use of insulin (HCC) HEMOGLOBIN A1C Routine 01/21/2025 10:13 AM EDT Type 2 diabetes mellitus without complication, without long-term current use of insulin (HCC) POCT INFLUENZA B (ID NOW RAPID MOLECULAR) Routine 01/21/2025 9:40 AM EDT Cough, unspecified type POCT INFLUENZA A (ID NOW RAPID MOLECULAR) Routine 01/21/2025 9:39 AM EDT Cough, unspecified type POCT COVID-19 AG PRINCE ID NOW Routine 01/21/2025 9:38 AM EDT Cough, unspecified type POCT GLYCATED HEMOGLOBIN, TOTAL Routine 01/21/2025 9:00 AM EDT Type 2 diabetes mellitus without complication, without long-term current use of insulin (HCC) POCT GLUCOSE Routine 01/21/2025 9:00 AM EDT Type 2 diabetes mellitus without complication, without long-term current use of insulin (HCC) documented in this encounter Results * Albumin, Random Urine W/Creatinine (01/21/2025 10:13 AM EDT) Creatinine, Urine 248.19 mg/dL [facility] Microalbumin Urine 28.0 mg/L H [facility] Microalbum Creatinine Ratio Ur 11.2 <30 ug/mg cr [facility] Comment:Albumin/Creatinine R atio Reference Ranges: Normal: < 30 ug/mg creatinine Microalbuminuria: 30 - 300 ug/mg creatinineClinical Albuminuria: > 300 ug/mg creatinine Urine (Urine, Random) 01/21/2025 10:13 AM EDT 01/21/2025 11:04 AM EDT us Daija Parry DO LAB URINE ORDERABLES Final R esult [facility] [address] [place] [phone] * (ABNORMAL) CBC (01/21/2025 10:13 AM EDT) White Blood Count 12.0(H) 4.8 - 10.8 X10*3/uL [facility] Red Blood Count 4.89 4.20 - 5.50 X10*6/uL [facility] Hemoglobin 14.7 12.0 - 16.0 g/dl [facility] Hematocrit 43.6 37.0 - 47.0 % [facility] Mean Corpuscular Volume 89.2 80.0 - 98.0 fL [facility] Mean Corpuscular Hemoglobin 30.1 27.0 - 33.0 pg [facility] Mean Corpuscular HGB Conc 33.7 31.0 - 35.0 g/dl [facility] Red Cell Distribution Width 12.7 11.0 - 16.0 % [facility] Platelet Count 284 160 - 400 X10*3/uL [facility] Mean Platelet Volume 9.5 9.4 - 12.3 fL [facility] NRBC Pct Auto 0.0 0.0 - 0.2 /100WBC [facility] NRBC Abs Auto 0.000 0.0 - 0.012 X10*3/uL [facility] Blood Venous blood specimen / Unknown 01/21/2025 10:13 AM EDT 01/21/2025 11:14 AM EDT Daija Brunoshantal DO LAB BLOOD ORDERABLES Final R esult Performing Organization Address City/[facility]/ZIP Co de Phone Number [facility] [address] [place] [phone] * (ABNORMAL) Hemoglobin A1c (01/21/2025 10:13 AM EDT) Hemoglobin A1c 6.3(H) <6.0 % [facility] Comment:Hemoglobin A1C Refer ence Range Adults: 4.8 - 6.0 % Non diabetic: < 6.0 % Goal: < 7.0 %Additional Action Suggested: > 8.0 %Note: Hemoglobin A1c results are invalid for patients with abnormal amounts of HbF. Blood transfusions may impact the HbA1c concentration in the patient sample. Estimated Average Glucose 134 mg/dL [facility] Comment:eAG = Estimated ave rage glucose which is %A1C expressed asaverage glucose, using the formula of the Y6V-ZbudkhkCynrwxs Glucose study (ADAG), Diabetes Care, Vol.31,#8,Nov. 2007 Blood Venous blood specimen / Unknown 01/21/2025 10:13 AM EDT 01/21/2025 11:14 AM EDT Daija Brinda DO LAB BLOOD ORDERABLES Final R esult Performing Organization Address City/[facility]/ZIP Co de Phone Number [facility] [address] [place] [phone] * POCT Rapid Influenza B PRINCE ID NOW (01/21/2025 9:40 AM EDT) Influenza B Negative Negative, Indeterminate [facility] QC Media Lot # [id number] [facility] Lot# Expiration Date [facility] Swab 01/21/2025 9:40 AM EDT Daija Brinda DO POINT OF CARE TEST ENTER/KATHY T ORDERABLES Final Result Performing Organization Address City/[facility]/ZIP Co de Phone Number [facility] [address] [place] [phone] * POCT Rapid Influenza A PRINCE ID NOW (01/21/2025 9:39 AM EDT) Pathologist [facility] Influenza A Negative Negative, Indeterminate [facility] QC Media Lot # [id number] [facility] Lot# Expiration Date [facility] Swab 01/21/2025 9:39 AM EDT Daija Brinda ROBLES POINT OF CARE TEST ENTER/KATHY T ORDERABLES Final Result Performing Organization Address [facility] Co de Phone Number [facility] [address] [place] [phone] * POCT Rapid Covid-19 PRINCE ID NOW (01/21/2025 9:38 AM EDT) Coronavirus Antigen PCR Negative Negative, Indeterminate, None Detected, Invalid, Specimen unsatisfactory for evaluation, Weakly Positive, 2+ QC Media Lot # [id number] Lot# Expiration Date Swab 01/21/2025 9:38 AM EDT Daija Brinda DO POINT OF CARE TEST ENTER/KATHY T ORDERABLES Final Result * (ABNORMAL) POCT Hgb A1c (01/21/2025 9:00 AM EDT) Hemoglobin A1C 6.3(A) 4.0 - 5.7 % QC Media Lot # [id number] Lot# Expiration Date [id number] Blood 01/21/2025 9:00 AM EDT Daija Brinda DO POINT OF CARE TEST ENTER/KATHY T ORDERABLES Final Result * POCT Glucose (01/21/2025 9:00 AM EDT) Glucose Blood, POC 156 60 - 200 mg/dL QC Media Lot # [id number] Lot# Expiration Date [id number] Blood Capillary blood specimen / Unknown 01/21/2025 9:00 AM EDT Daija Parry DO POINT OF CARE TEST ENTER/KATHY T ORDERABLES Final Result documented in this encounter Visit Diagnoses Diagnosis Type 2 diabetes mellitus without complication, without long-term current use of insulin ([facility])- Primary Essential hypertension Unspecified essential hypertension Other hyperlipidemia Hypothyroidism, unspecified type Major depression, recurrent, chronic (CMS/HCC) Chest pain, unspecified type Mild persistent asthma with acute exacerbation AISHWARYA (obstructive sleep apnea) Obstructive sleep apnea (adult) (pediatric) Chronic gastroesophageal reflux disease Chronic migraine Chronic bilateral low back pain with bilateral sciatica Fibromyalgia Unspecified myalgia and myositis Acute hip pain, bilateral Forgetfulness Other general symptoms Fatigue, unspecified type Healthcare maintenance Dietary counseling Dietary surveillance and counseling Exercise counseling Cough, unspecified type Mild persistent asthma, unspecified whether complicated Encounter for immunization Encounter for vaccination documented in this encounter Additional Health Concerns Assessment Noted Time PHQ-9 Depression Total Score: 22 025 3:28 PM EDT documented as of this encounter Care Teams Business Continuity Strategy Director Relationship Specialty Start Date End Date Daija Parry DO [address] [place] [address] PCP - General Family Medicine 12/22/14 Ely Darling PharmD [address] [place] [address] Pharmacist Internal Medicine 11/22/22 documented as of this encounter
[2025-01-21 11:27] LABS: Hematocrit 43.6 % (37.0-47.0); Hemoglobin 14.7 g/dl (12.0-16.0); Mean Corpuscular HGB Conc 33.7 g/dl (31.0-35.0); Mean Corpuscular Hemoglobin 30.1 pg (27.0-33.0); Mean Corpuscular Volume 89.2 fL (80.0-98.0); NRBC Abs Auto 0.000 X10*3/uL (0.0-0.012); NRBC Pct Auto 0.0 /100WBC (0.0-0.2); Platelet Count 284 X10*3/uL (160-400); Red Blood Count 4.89 X10*6/uL (4.20-5.50); White Blood Count 12.0 X10*3/uL (4.8-10.8)
[2025-01-21 11:52] LABS: Microalbum/Creatinine Ratio Ur 11.2 ug/mg cr (<30)
--- OUTSIDE RECORDS SUMMARY | 2025-01-21 12:00 | XMS_ITS | Encounter Summary ---
Author Organization [employer] Address [address] [place] [address] 7t [place] [address] Care Team Providers Care Asbestos Worker Name Role Phone Daija Parry DO Primary Care Provider Ely Darling PharmD Unavailable Reason for Visit * Reason Onset Date Comments Med Refill 02/07/2024 Encounter Details Date Type Department Care Team ([facility] st Contact Info) Description 02/07/2024 Telephone [facility] [address] [place] [address] Daija Parry DO [address] [place] [address] Med Refill Social History Tobacco Use Types [...] 50 MG tablet To be sent to: [facility] - [place], [place] - [address] [facility] documented in this encounter Plan of Treatment Upcoming Encounters Date Type Department Care Team (Late st Contact Info) Description 02/03/2025 9:45 AM EDT Office Visit [facility] [address] [place] [address] 03/12/2025 2:30 PM EST Office Visit [facility] OPTOMET[facility] [address] [place] [address] Yordan, Arielle, OD [address] [place] [address] documented as of this encounter Goals Goal Patient Goal Type Associated Problems Recent Progress Patient-Stated? Author Blood Pressure < 140/90 Blood Pressure 132/78(2024 8:56 AM EDT) No Dellogono, Lopez, PharmD Hemoglobin A1c < 7 Result Component 6.3( 10:13 AM EDT) No Dellogono, Lopez, PharmD Record your blood sugar as directed Result Component No PuiaEly, PharmD documented as of this encounter Visit Diagnoses Not on filedocumented in this encounter Additional Health Concerns Assessment Noted Time PHQ-9 Depression Total Score: 25 024 12:17 PM EDT documented as of this encounter Care Teams Asbestos Worker Relationship Specialty Start Date End Date Daija Parry DO [address] [place] [address] PCP - General Family Medicine 12/22/14 Olgaia, Ely, PharmD [address] [place] [address] Pharmacist Internal Medicine 11/22/22 documented as of this encounter
--- OUTSIDE RECORDS SUMMARY | 2025-01-21 12:00 | XMS_ITS | Encounter Summary ---
Author Organization [employer] Address [address] [place] [address] 7t [place] [address] Care Team Providers Care Acquisition Lead Name Role Phone BrindaDaija Primary Care Provider [phone] Ely Darling PharmD Unavailable [phone] Reason for Visit * Reason Comments Med Refill Encounter Details Date Type Department Care Team ([facility] st Contact Info) Description 01/24/2023 Refill [facility] [address] [place] [address] Daphney Roca MD [address] [place] [address] Social History Tobacco Use Types Packs/Day Years [...] Description 02/03/2025 9:45 AM EDT Office Visit [facility] [address] [place] [address] 03/12/2025 2:30 PM EST Office Visit [facility] OPTOMETRY [address] [place], [place] [phone] Yordan, Arielle, OD [address] [place] [address] documented as of this encounter Goals Goal [...] documented as of this encounter Care Teams Acquisition Lead Relationship Specialty Start Date End Date Daija Parry DO [address] [place] [address] PCP - General Family Medicine 12/22/14 Puia, Ely, PharmD [address] [place] [phone] Pharmacist Internal Medicine 11/22/22 documented as of this encounter
--- OUTSIDE RECORDS SUMMARY | 2025-01-21 12:00 | XMS_ITS | Encounter Summary ---
Author Organization [employer] Address [address] [facility] 7t [place] [address] Care Team Providers Care Engine Specialist Name Role Phone Daija Parry DO Primary Care Provider [phone] Ely Darling PharmD Unavailable Reason for Visit * Reason Onset Date Comments Med Refill 09/09/2023 Encounter Details Date Type Department Care Team (Late st Contact Info) Description 09/09/2023 Refill [facility] [address] [place], [place] [phone] Daija Parry DO [address] [facility] [place] [address] Chronic bilateral low back pain, unspecified whether [...] the past 12 months, has t he [employer], gas, oil or water company threatened to [...] [facility] [address] [place] [address] 03/12/2025 2:30 PM EST Office Visit [facility] OPTOMETRY [address] [place] [address] Yordan, Arielle, OD [address] [place] [address] documented as of this encounter Goals Goal Patient Goal Type Associated Problems Recent Progress Patient-Stated? Author Blood Pressure < 140/90 Blood Pressure 132/78(2024 8:56 AM EDT) No Lopez Marroquin, PharmD Hemoglobin A1c < 7 Result Component 6.3( 10:13 AM EDT) No Lopez Marroquin, PharmD Record your blood sugar as directed Result Component No Ely Darling PharmD documented as of this encounter Visit Diagnoses Diagnosis Chronic bilateral low back pain, unspecified whether sciatica present documented in this encounter Additional Health Concerns Assessment Noted Time PHQ-9 Depression Total Score: 25 024 12:17 PM EDT documented as of this encounter Care Teams Engine Specialist Relationship Specialty Start Date End Date Daija Parry DO [address] [place] [address] PCP - General Family Medicine 12/22/14 Ely Darling PharmD [address] [place] [address] Pharmacist Internal Medicine 11/22/22 documented as of this encounter
--- OUTSIDE RECORDS SUMMARY | 2025-01-21 12:00 | XMS_ITS | Encounter Summary ---
Author Organization [employer] Address [address] [place] [address] 7t [place] [address] Care Team Providers Care Infrastructure Design Engineer Name Role Phone KianaDaija murguia Primary Care Provider [phone] Ely Darling PharmD Unavailable Reason for Visit * Reason Comments Med Refill Encounter Details Date Type Department Care Team (Late Contact Info) Description 12/16/2022 Refill [facility] [address] [place] [address] Daphney Roca MD [address] [place] [address] Mild persistent asthma, unspecified whether complicated Social [...] 9:45 AM EDT Office Visit [facility] [address] [place], [place] [phone] 03/12/2025 2:30 PM EST Office Visit [facility] OPTOMETRY [address] [place], [place] [phone] Arielle Farr, OD [address] [place] [address] documented as of this encounter Goals Goal [...] documented as of this encounter Care Teams Infrastructure Design Engineer Relationship Specialty Start Date End Date Daija Parry DO [address] [place] [address] PCP - General Family Medicine 12/22/14 Ely Darling, PharmD [address] [place] [address] Pharmacist Internal Medicine 11/22/22 documented as of this encounter
--- OUTSIDE RECORDS SUMMARY | 2025-01-21 12:00 | XMS_ITS | Encounter Summary ---
Author Organization [employer] Address [address] [place] [address] 7 [place] [address] Care Team Providers Care Community Integration Specialist Name Role Phone Daija Parry DO Primary Care Provider Ely Darling PharmD Unavailable [phone] Reason for Visit * Reason Comments Med Refill Encounter Details Date Type Department Care Team ([facility] st Contact Info) Description 02/11/2024 Refill [facility] [address] [place] [address] Daija Parry DO [address] [place] [address] Hypothyroidism, unspecified type Social History Tobacco Use [...] with others, in a hotel, in a chcf, living outside on the street, on a [...] Description 02/03/2025 9:45 AM EDT Office Visit [facility] [address] [place] [address] 03/12/2025 2:30 PM EST Office Visit [facility] OPTOMETRY [address] [place] [address] Arielle Farr, OD [address] [place] [address] documented as of this encounter Goals Goal Patient Goal Type Associated Problems Recent Progress Patient-Stated? Author Blood Pressure < 140/90 Blood Pressure 132/78(2024 8:56 AM EDT) No Lopez Marroquin, PharmD Hemoglobin A1c < 7 Result Component 6.3( 10:13 AM EDT) No GregorylogLopez urena, PharmD Record your blood sugar as directed Result Component No Ely Darling PharmD documented as of this encounter Visit Diagnoses Diagnosis Hypothyroidism, unspecified type documented in this encounter Additional Health Concerns Assessment Noted Time PHQ-9 Depression Total Score: 25 024 12:17 PM EDT documented as of this encounter Care Teams Community Integration Specialist Relationship Specialty Start Date End Date Daija Parry DO [address] [place] [address] PCP - General Family Medicine 12/22/14 Ely Darling, Ashish [address] [place] [address] Pharmacist Internal Medicine 11/22/22 documented as of this encounter
--- OUTSIDE RECORDS SUMMARY | 2025-01-21 12:00 | XMS_ITS | Encounter Summary ---
Author Organization [employer] Address [address] [facility] 7t [place] [address] Care Team Providers Care Executive Compensation Analyst Name Role Phone Daija Parry DO Primary Care Provider Ely Darling PharmD Unavailable [phone] Reason for Visit * Reason Onset Date Comments Med Refill 08/29/2023 Encounter Details Date Type Department Care Team (Late st Contact Info) Description 08/29/2023 Refill [facility] MED [facility] PEDS [address] [place] [address] Daija Parry DO [address] [place] [address] Chronic bilateral low back pain, unspecified whether [...] the past 12 months, has t he [employer], gas, oil or water company threatened to [...] 02/03/2025 9:45 AM EDT Office Visit [facility] [address] [place] [address] 03/12/2025 2:30 PM EST Office Visit [facility] OPTOMETRY [address] [place] [address] Yordan, Arielle, OD [address] [place] [address] documented as of this encounter Goals Goal [...] documented as of this encounter Care Teams Executive Compensation Analyst Relationship Specialty Start Date End Date Daija Parry DO [address] [place] [address] PCP - General Family Medicine 12/22/14 Ely Darling PharmD [address] [place] [address] Pharmacist Internal Medicine 11/22/22 documented as of this encounter
--- OUTSIDE RECORDS SUMMARY | 2025-01-21 12:00 | XMS_ITS | Encounter Summary ---
Author Organization [employer] Address [address] [place] [address] 7t [place] [address] Care Team Providers Care Cookee Name Role Phone Daija Parry DO Primary Care Provider Lopez Marroquin PharmD Unavailable Unavail able Ely Darling PharmD Unavailable [phone] Reason for Visit * Reason Onset Date Comments Appointment Request 06/27/2022 Encounter Details Date Type Department Care Team (Late st Contact Info) Description 06/27/2022 Telephone [facility] [address] [place] [address] Daija Parry DO [address] [place] [address] Appointment Request Social History Tobacco Use Types [...] r/s appt for 06/27/2022 Office visit extended. Network Technology Instructor tried booking but noavailable spaces. Please contact pt at [phone] documented in this encounter Plan of Treatment Upcoming Encounters Date Type Department Care Team (Late st Contact Info) Description 02/03/2025 9:45 AM EDT Office Visit [facility] [address] [place] [address] 03/12/2025 2:30 PM EST Office Visit [facility] OPTOMETRY [address] [place] [address] Yordan, Arielle, OD [address] [place] [address] documented as of this encounter Goals Goal Patient Goal Type Associated Problems Recent Progress Patient-Stated? Author Blood Pressure < 140/90 Blood Pressure 132/78(2024 8:56 AM EDT) No Dellogono, Lopez, PharmD Hemoglobin A1c < 7 Result Component 6.3( 10:13 AM EDT) No Dellogono, Lopez, PharmD documented as of this encounter Visit Diagnoses Not on filedocumented in this encounter Additional Health Concerns Assessment Noted Time PHQ-9 Depression Total Score: 24 023 11:12 AM EST documented as of this encounter Care Teams [place]okee Relationship Specialty Start Date End Date Daija Parry DO [address] [place] [address] PCP - General Family Medicine 12/22/14 Dellogono, Lopez, PharmD [address] [place] [address] Pharmacist Internal Medicine 06/25/22 11/22/22 Ely Darling, AugustoD [address] [place] [address] Pharmacist Internal Medicine 11/22/22 documented as of this encounter
--- OUTSIDE RECORDS SUMMARY | 2025-01-21 12:00 | XMS_ITS | Encounter Summary ---
Author Organization [employer] Address [address] [place] [address] [address] [place] [address] Care Team Providers Care Land Clearer Name Role Phone Daija Parry DO Primary Care Provider Ely Darling PharmD Unavailable Reason for Visit * Reason Comments Med Refill Encounter Details Date Type Department Care Team (Late st Contact Info) Description 01/01/2023 Refill [facility] MEDICINE [address] [place] [address] Daija Parry DO [address] [place] [address] Social History Tobacco Use Types Packs/Day Years [...] Visit [facility] [address] [place] [address] 03/12/2025 2:30 PM EST Office Visit [facility] OPT[facility] [address] [place] [address] Arielle Farr, OD [address] [place] [address] documented as of this encounter Goals Goal Patient Goal Type Associated Problems Recent Progress Patient-Stated? Author Blood Pressure < 140/90 Blood Pressure 132/78(2024 8:56 AM EDT) No Lopez Marroquin, PharmD Hemoglobin A1c < 7 Result Component 6.3( 10:13 AM EDT) No Dellogromel Lopez, PharmD Record your blood sugar as directed Result Component No Ely Darling, PharmD documented as of this encounter Visit Diagnoses Not on filedocumented in this encounter Additional Health Concerns Assessment Noted Time PHQ-9 Depression Total Score: 24 023 11:12 AM EST documented as of this encounter Care Teams Land Clearer Relationship Specialty Start Date End Date Daija Parry DO [address] [place] [address] PCP - General Family Medicine 12/22/14 Ely Darling, PharmD [address] [place] [address] Pharmacist Internal Medicine 11/22/22 documented as of this encounter
--- OUTSIDE RECORDS SUMMARY | 2025-01-21 12:00 | XMS_ITS | Encounter Summary ---
Author Organization [employer] Address [address] [place] [address] [address] [place] [address] Care Team Providers Care Termite Renewal Inspector Name Role Phone Daija Parry DO Primary Care Provider [phone] Ely Darling PharmD Unavailable Reason for Visit * Reason Onset Date Comments Appointment Request 04/03/2023 Encounter Details Date Type Department Care Team ([facility] st Contact Info) Description 04/03/2023 Telephone [facility] MEDICINE [address] [place], [place] [phone] Daija Parry DO [address] [place] [address] Appointment Request Social History Tobacco Use Types [...] seen for headaches due to CPAP machine travel writer did offer to triage this call patient refused due to being out of town and is returning on 04/21/2023 documented in this encounter Plan of Treatment Upcoming Encounters Date Type Department Care Team (Late st Contact Info) Description 02/03/2025 9:45 AM EDT Office Visit [facility] MEDICINE [address] [place] [address] 03/12/2025 2:30 PM EST Office Visit [facility] OPTOMETRY [address] [place] [address] Arielle Farr, OD [address] [place] [address] documented as of this encounter Goals Goal Patient Goal Type Associated Problems Recent Progress Patient-Stated? Author Blood Pressure < 140/90 Blood Pressure 132/78(2024 8:56 AM EDT) No Lopez Marroquin, PharmD Hemoglobin A1c < 7 Result Component 6.3( 10:13 AM EDT) No Cara Lopez, PharmD Record your blood sugar as directed Result Component No Ely Darling PharmD documented as of this encounter Visit Diagnoses Not on filedocumented in this encounter Additional Health Concerns Assessment Noted Time PHQ-9 Depression Total Score: 24 023 8:59 AM EDT documented as of this encounter Care Teams Termite Renewal Inspector Relationship Specialty Start Date End Date Daija Parry DO [address] [place] [address] PCP - General Family Medicine 12/22/14 Ely Darling PharmD [address] [place] [address] Pharmacist Internal Medicine 11/22/22 documented as of this encounter
--- OUTSIDE RECORDS SUMMARY | 2025-01-21 12:00 | XMS_ITS | Clinical Summary ---
Author Organization [email or web address] Address [address] [place] [address] [address] [place] [address] Care Team Providers Care Instrumentation Technician Name Role Phone Brinda Daija Primary Care Provider Ely Darling PharmD Unavailable [phone] Allergies Active Allergy Reactions Criticality Noted Date Comments Cefuroxime Hives High 07/15/2015 Medications * This document contains information received from the source organization and may not represent a complete record from that organization. pantoprazole (ProtoNix) 40 MG EC tablet Take 1 tablet by mouth 2 times daily. Active pancrelipase, Adb-Olwf-Hwkx, (Creon) 21114-52157 units capsule Take 2 capsules by mouth [...] MOUTH AT BEDTIME 84 tablet 023 Active clonazePAM (KlonoPIN) 0.5 MG tablet Take 0.5 mg by mouth if needed in the morning, at noon, and at bedtime for anxiety. Active ergocalciferol (Vitamin D2) 1.25 MG (22705 UT) capsuleIndicati ons:Vitamin D deficiency Take 1 capsule (1.25 mg) by mouth 1 (one) time per week. 5 capsule 3 Active alosetron (Lotronex) 1 MG tablet Take 1 mg by mouth 2 times daily. Active Alcohol Swabs (Alcohol Prep) padsIndications :Type 2 diabetes mellitus without complication, without long-term current use of insulin (HCC) Use one pad BID when checking blood glucose 100 each Active glucose blood (FREESTYLE LITE) test stripIndication s:Type 2 diabetes mellitus without complication, without long-term current use of insulin ([facility]) Use to monitor blood glucose twice daily 100 each Active TRUEplus Lancets 33G miscIndications :Type 2 diabetes mellitus without complication, without long-term current use of insulin ([facility]) Use to test blood sugar 2 time(s) daily 100 each Active Blood Glucose Monitoring Suppl (FreeStyle [place] Lite) w/Device kit Use to test blood sugar 3 times daily 1 kit Active Skin Protectants, Misc. (Minerin Creme) cream APPLY TOPICALLY TO DRY SKIN TWICE DAILY NEEDED 454 g 5 Active ondansetron (Zofran) 4 MG tablet TAKE 1 TABLET BY MOUTH THREE TIMES DAILY NEEDED FOR NAUSEA AND VOMITING Active Nystop 144112 UNIT/GM powder APPLY TOPICALLY TO THE AFFECTED AREA(S) 2 OR 3 TIMES DAILY Active pentosan polysulfate (Elmiron) 100 MG capsule Take 2 capsules (200 mg) by mouth 2 times daily. 120 capsule Active loratadine (Claritin) 10 MG tablet Take 1 tablet (10 mg) by mouth Once per day. 30 tablet 11 024 2024 Active famotidine (Pepcid) 40 MG tablet Take 1 tablet (40 mg) by mouth at bedtime. 30 tablet 5 024 2024 Active Trulicity 0.75 MG/0.5ML solution auto-injectorIn dications:Type 2 diabetes mellitus without complication, without long-term current use of insulin (HCC) INJECT ONE PEN (=0.75MG) SUBCUTANEOUSLY ONCE A WEEK DIRECTED 2 mL Active losartan (Cozaar) 100 MG tabletIndicatio ns:Essential hypertension TAKE 1 TABLET BY MOUTH EVERY EVENING 90 tablet 025 Active D3 Super Strength 50 MCG (2000 UT) capsuleIndicati ons:Vitamin D deficiency TAKE 1 CAPSULE BY MOUTH EVERY MORNING 30 capsule Active Diclofenac Sodium 1 % gelIndications: Chronic low back pain, unspecified back pain laterality, unspecified whether sciatica present Apply 2 g topically if needed in the morning, at noon, in the evening, and at bedtime (pain). 150 g 025 Active montelukast (Singulair) 10 MG tablet TAKE 1 TABLET BY MOUTH EVERY EVENING 90 tablet 025 Active mineral oil-hydrophil petrolat ointment Topical OintmentIndicat ions:Xerosis cutis APPLY TO THE AFFECTED AREA(S) TWICE DAILY NEEDED 454 g 025 Active dicyclomine (Bentyl) 20 MG tablet Active PARoxetine (Paxil) 30 MG tablet Take 30 mg by mouth in the morning. Active solifenacin (VESIcare) 10 MG tablet Take 10 mg by mouth in the morning. Active acetaminophen (Tylenol 8 Hour) 650 MG ER tabletIndicatio ns:Pain TAKE 1 TABLET BY MOUTH EVERY 6 HOURS NEEDED FOR PAIN OR FEVER 100 tablet 025 Active capsaicin (Capzasin-HP) 0.1 % creamIndication s:Spondylosis, lumbar, with myelopathy Apply thin layer by topical route up to 4 times daily for pain. 45 g 025 Active gabapentin (Neurontin) 400 MG capsule Take 1 capsule (400 mg) by mouth 3 times daily. 270 capsule 025 Active levothyroxine (Synthroid, Levoxyl) 75 MCG tabletIndicatio ns:Hypothyroidi sm, unspecified type TAKE 1 TABLET BY MOUTH EVERY MORNING WITH 200 mcg 90 tablet 025 Active furosemide (Lasix) 20 MG tablet TAKE 1 TABLET BY MOUTH EVERY DAY NEEDED FOR SWELLING 30 tablet 2 025 Active ergocalciferol (Vitamin D2) 1.25 MG (14003 UT) capsule TAKE 1 CAPSULE BY MOUTH [...] without long-term current use of insulin (HCC) Take 1 tablet (10 mg) by mouth Once per day. 30 tablet 11 025 2025 Active hydroCHLOROthia zide (HYDRODiuril) 25 MG tablet TAKE 1 TABLET BY MOUTH EVERY EVENING 90 tablet 1 025 Active hydrALAZINE (Apresoline) 100 MG tabletIndicatio ns:Essential hypertension TAKE 1 TABLET BY MOUTH TWICE DAILY IN THE MORNING AND IN THE EVENING WITH FOOD 180 tablet 1 Active levothyroxine (Synthroid, Levoxyl) 200 MCG tabletIndicatio ns:Hypothyroidi sm, unspecified type TAKE 1 TABLET BY MOUTH EVERY MORNING BEFORE BREAKFAST 90 tablet 1 025 Active traMADol (Ultram) 50 MG tabletIndicatio ns:Chronic bilateral low back pain with bilateral sciatica Take 1 tablet (50 mg) by mouth every 6 (six) hours if needed for severe pain for up to 28 days. Do not start before December 26, 2024. 112 tablet 025 2024 Active atorvastatin (Lipitor) 10 MG tablet Take 1 tablet (10 mg) by mouth Once per day. 30 tablet 11 025 2025 Active predniSONE (Deltasone) 20 MG tablet Take 2 tablets (40 mg) by mouth Once per day for 3 days. 6 tablet 025 2024 Active benzonatate (Tessalon Perles) 100 MG capsule Take 1 capsule (100 mg) by mouth if needed in the morning, at noon, and at bedtime for cough for up to 10 days. Do not crush or chew. 30 capsule 025 2024 Active albuterol (2.5 MG/3ML) 0.083% nebulizer solutionIndicat ions:Mild persistent asthma with acute exacerbation Take 3 mL (2.5 mg) by nebulization every 4 (four) hours if needed for wheezing or shortness of breath. 75 mL 2 Active fluticasone furoate (Arnuity Ellipta) 200 MCG/ACT inhaler INHALE 1 PUFF BY MOUTH EVERY DAY AT THE SAME TIME RINSE MOUTH AFTER USING 30 each 11 Active albuterol (Ventolin HFA) 108 (90 Base) MCG/ACT inhalerIndicati ons:Mild persistent asthma, unspecified whether complicated Inhale 2 puffs every 4 (four) hours if needed for shortness of breath or wheezing. 18 g 2 Active Ventolin HFA 108 (90 Base) MCG/ACT inhalerIndicati ons:Mild persistent asthma, unspecified whether complicated INHALE 2 PUFFS BY MOUTH EVERY 4 TO 6 HOURS NEEDED 18 g 1 023 2024 Discontinued(R eorder (will not trigger notification to Pharmacy)) albuterol (2.5 MG/3ML) 0.083% nebulizer solution INHALE 1 AMPULE USING A NEBULIZER EVERY 4 HOURS NEEDED 90 mL 2 023 2024 Discontinued(R eorder (will not trigger notification [...] EVENING 90 tablet 1 025 2024 Discontinued Arnuity Ellipta 200 MCG/ACT inhaler INHALE 1 PUFF BY MOUTH EVERY DAY AT THE SAME TIME RINSE MOUTH AFTER USING 30 each 2 025 2024 Discontinued(R eorder (will not trigger notification to Pharmacy)) traMADol (Ultram) 50 MG tabletIndicatio ns:Chronic bilateral low back pain with bilateral sciatica TAKE 1 TABLET BY MOUTH EVERY 6 HOURS NEEDED FOR SEVERE PAIN 112 tablet 025 2024 Discontinued Active Problems Problem Noted Date Diagnosed Date Bereavement 07/10/2024 Long-term current use of opiate analgesic 2024 Overview (10/28/2024): Medication: Tramadol 50mg Q6H PRN Indication: lumbar spondylosis with myelopathy Last [employer] Agreement: 03/04/24 Tier: 2 (Q3mo [employer]) - eval 10/28/24 by PCP Assessment & [...] main strength. Pt currently has services with [facility] for psychiatry and is also in wait list for OP individual therapy. clinician engaged patient with active/reflective listening. Reviewed and assessed for risk, current stressors and protective factors using open-ended questions. clinician will provide follow-up BE for additional support. Provided [facility] contact information. Chronic, continuous use of opioids 01/01/2024 Overview (03/04/2024): Dx: Chronic Back Pain with Sciatica Rx: Tramadol 50mg Q6 hours Tier 2, visits every 3 months [employer] Agreement signed: 03/04/24 Additional considerations: Restrictive lung [...] including pharm and non- pharm modalities -See regulatory affairs manager regarding pill count/utox Assessment & Plan (09/02/2024 1:39 PM EDT): -Good engagement and participation with Group Medical Visit model -Encouraged multifactorial approach to pain control including pharm and non- pharm modalities -UTOX as expected, pill count 2 short. See regulatory affairs manager Assessment & Plan (06/03/2024 2:35 PM EST): [...] Mild persistent asthma 01/27/2015 BMI 50.0-59.9, adult ([facility]) 01/27/2015 Obstructive sleep apnea 01/27/2015 Overview (05/03/2023): Uses NIVV Peripheral venous insufficiency 01/27/2015 Major depression, recurrent, chronic 01/27/2015 Vitamin D deficiency 01/27/2015 Nephrolithiasis 01/27/2015 Resolved Problems Problem Noted Date Diagnosed Date Resolved Date Morbid obesity ([facility]) 07/12/202307/2023 Migraine 07/12/2023 07/12/2023 Missing teeth, acquired 05/14/2023 02/2 Dyspnea 05/03/2023 05/03/2023 07/12/2023 Patellofemoral arthralgia of right knee 02/21/2022 07/12/2023 Systolic hypertension 07/21/20212023 Essential hypertension 01/27/201505/26 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 Date Type Department Care Team Description 01/21/2025 9:00 AM EDT Office Visit [address] [address] Daija Parry DO Type 2 diabetes mellitus [...] complicated; Encounter for immunization; Encounter for vaccination 01/21/2025 Travel 01/21/[address] [address] Daija Parry DO 01/20/2025 Orders Only GENERIC EXTERNAL DATA DEPARTMENT Provider, Generic External Data 01/20/[address] [address] Daija Parry DO Durable Medical Equipment (L&C: Incontinence Supplies) 01/15/[address] [address] Daija Parry DO Chart Prep 01/13/2025 Patient Outreach [address] [address] Daija Parry DO Pre-visit Planning ((Unable to reach for PVP screening, LVM) to be completed in office ) 01/08/[address] [address] Veronica Mcadams, RN Appointment Request 01/06/2025 Orders Only GENERIC EXTERNAL DATA DEPARTMENT Provider, Generic External Data 12/25/2024 Orders Only GENERIC EXTERNAL DATA DEPARTMENT Provider, Generic External Data 12/22/2024 Refill [facility] [address] [place] [phone] Daija Parry DO Essential hypertension; Hypothyroidism, unspecified type; Chronic bilateral low back pain with bilateral sciatica 12/02/2024 9:45 AM EDT Office Visit [address] [phone] Chloé Wilson FNP Spondylosis, lumbar, with myelopathy (Primary Dx); Long-term current use of opiate analgesic 12/02/2024 Refill [facility] [address] [place] [phone] Daija Parry DO Type 2 diabetes mellitus without complication, without long-term current use of insulin ([facility]) 12/02/2024 Travel 12/01/2024 Refill [facility] [address] [place] [phone] Daija Parry DO Type 2 diabetes mellitus without complication, without long-term current use of insulin ([facility]) 11/24/2024 Refill [facility] [address], [place] [phone] Pretty Greene MD Chronic bilateral low back pain with bilateral sciatica 11/14/2024 Refill [facility] [address] [place] [phone] [phone] Daija Parry DO Essential hypertension 11/09/[address] [address] Daija Parry DO Pain 10/28/2024 9:45 AM EDT Office Visit [address] [address] Chloé Wilson, NIKOLAS Spondylosis, lumbar, with myelopathy (Primary Dx); Long-term current use of opiate analgesic 10/28/2024 Telephone [facility] [address] [place] [address] Lakesha Graham, RN [employer] Tier 2 10/28/2024 Travel 10/24/2024 Refill [facility] [address] [place] [address] Daija Parry DO from Last 3 Months Immunizations Immunization Administration Dates Next Due DTaP 09/19/1978, 6,1973,11/04,1973 Hep B, adult 12/11/2023, 5,01/07/2004,11/29 IPV 04/25/1988, 9,11/24/1975,12/11,1973 Influenza injectable quadriv alent IIV4 with preservative 01/04/2018,03/20/2017,01/24/2016,12/29 Influenza injectable quadriv alent preservative free 01/02/2023,01/20/2022,02/17/2021,01/13,12/30/2018 Influenza, IIV3, injectable 02/09/2014, 1 Influenza, Split (incl. emilie fied surface antigen) 01/18/2017,02/17/2013,12/21/2011 Influenza, seasonal, injecta ble, preservative free 01/21/2025,02/11/2024 MMR 11/30/2003,04/25/1988 Moderna Covid-19 Vaccine 12+ 05/11/2021,07/14/19 21,06/15/2020 Pfizer Covid-19 Vaccine 12+ 01/21/2025, 4,05/03/2023 Pfizer Covid-19 Vaccine 12+ Bivalent 03/09/2022 Pneumococcal Conjugate PCV 20 04/30/2023 Pneumococcal Polysaccharide PPSV23 08/23/2015,,10/21/2012 TD (adult), 2 Lf tetanus tox oid, preservative free, adsorbed 05/23/1995,04/25/1988 Tdap 01/21/2025,09/22/2014,02/06/2012 Family History Medical History Relation Name Comments [...] with others, in a hotel, in a longterm, living outside on the street, on a [...] Mass Index 55.03 01/21/2025 8:56 AM EDT Plan of Treatment Upcoming Encounters Date Type Department Care Team (Late st Contact Info) Description 02/03/2025 9:45 AM EDT Office Visit [facility] [address] [place] [address] 03/12/2025 2:30 PM EST Office Visit [facility] [address] [place] [address] Yordan, Arielle, OD [address] [place] [address] Health Maintenance Due Date Last Done Comments [...] 05/15/2024 05/14/2023, 07/14 SDOH Screening 07/11/2024 07/12/2023 Depression Monitoring 01/09/2025 07/10/2024, 025 Mammogram 02/13/2025 02/14/2024, 10/08, 10/29/2020, Additional history exists Diabetes: Urine Protein Screening 07/15/2025 01/21/2025, 07/15/2024, 07/12/2023, Additional history exists Lipid Panel 07/15/2025 07/15/2024, 07/09, 05/03/2023, Additional history exists Diabetes: Hemoglobin A1C 07/22/2025 025, 01/21/2025, 07/15/2024, Additional history exists Tobacco Screening 01/21/2026 01/21/2025 Dental X-Ray: Full Mouth 05/15/2026 024, 08/18/2016, 07/15/2015 Eye Exam 09/09/2026 09/09/2024, 06/0 06/2024, 09/09/2024, Additional history exists DTaP/Tdap/Td Vaccines (9 - Td or Tdap) 01/21/2035 01/21/2025, 09/22/2014, 02/06/2012, Additional history exists RSV Patients and Patients Aged 60 years or older (1 - 1-dose 75+ series) 2048 IPV Vaccines Completed 04/25/1988, 09/07, 11/24/1975, Additional history exists Pneumococcal Vaccine: 50+ Years Completed 04/30/2023, 08/23/2015, 09/22/2014, Additional history exists Hepatitis B Vaccines Completed 12/11/2023, 05/16/2004, 01/07/2004, Additional history exists HIV Screening Completed 07/15/2024, 06/07, 11/24/2020, Additional history exists Hepatitis C Screening Completed 07/15/2024 , 06/22/2021, 11/24/2020, Additional history exists COVID-19 Vaccine Completed 01/21/2025, 07/2023, 05/03/2023, Additional history exists Influenza Vaccine Completed 01/21/2025, , 01/02/2023, Additional history exists HIB Vaccines Aged Out [...] without long-term current use of insulin (HCC) BASIC METABOLIC PANEL Routine 01/20/2025 10:45 AM EDT CULTURE, URINE, ROUTINE Routine 01/06/2025 9:58 AM EDT GLUCOSE, WHOLE BLOOD Routine 01/06/2025 9:30 AM EDT HCG, QL, URINE Routine 01/06/2025 9:00 AM EDT LIPASE Routine 12/25/2024 3:29 PM EDT AMYLASE Routine 12/25/2024 3:29 PM EDT COMPREHENSIVE METABOLIC PANEL Routine 12/25/2024 3:29 PM EDT CBC WITH AUTO DIFFERENTIAL Routine 12/25/2024 3:29 PM EDT POCT BENITO-14 URINE DRUG SCREEN Routine 12/02/2024 10:24 AM EDT Long-term current use of opiate analgesic POCT BENITO-14 URINE DRUG SCREEN Routine 10/28/2024 10:04 AM EDT Spondylosis, lumbar, with myelopathy HEPATITIS C AB W/REFL TO HCV RNA, [...] Maintenance Results * Albumin, Random Urine W/Creatinine (01/21/2025 10:13 AM EDT) Creatinine, Urine 248.19 mg/dL [facility] Microalbumin Urine 28.0 mg/L [facility] Microalbum Creatinine Ratio Ur 11.2 <30 ug/mg cr [facility] Comment:Albumin/Creatinine R atio Reference Ranges: Normal: < 30 ug/mg creatinine Microalbuminuria: 30 - 300 ug/mg creatinineClinical Albuminuria: > 300 ug/mg creatinine Urine (Urine, Random) 01/21/2025 10:13 AM EDT 01/21/2025 11:04 AM EDT us Daija Parry DO LAB URINE ORDERABLES Final R esult [facility] [address] [place] [phone] * (ABNORMAL) CBC (01/21/2025 10:13 AM EDT) White Blood Count 12.0(H) 4.8 - 10.8 X10*3/uL [facility] Red Blood Count 4.89 4.20 - 5.50 X10*6/uL [facility] Hemoglobin 14.7 12.0 - 16.0 g/dl [facility] Hematocrit 43.6 37.0 - 47.0 % [facility] Mean Corpuscular Volume 89.2 80.0 - 98.0 fL [facility] Mean Corpuscular Hemoglobin 30.1 27.0 - 33.0 pg [facility] Mean Corpuscular HGB Conc 33.7 31.0 - 35.0 g/dl [facility] Red Cell Distribution Width 12.7 11.0 - 16.0 % [facility] Platelet Count 284 160 - 400 X10*3/uL [facility] Mean Platelet Volume 9.5 9.4 - 12.3 fL [facility] NRBC Pct Auto 0.0 0.0 - 0.2 /100WBC [facility] NRBC Abs Auto 0.000 0.0 - 0.012 X10*3/uL [facility] Blood Venous blood specimen / Unknown 01/21/2025 10:13 AM EDT 01/21/2025 11:14 AM EDT Daija Parry DO LAB BLOOD ORDERABLES Final R esult [facility] [address] [place] [phone] * (ABNORMAL) Hemoglobin A1c (01/21/2025 10:13 AM EDT) Hemoglobin A1c 6.3(H) <6.0 % [facility] Comment:Hemoglobin A1C Refer ence Range Adults: 4.8 - 6.0 % Non diabetic: < 6.0 % Goal: < 7.0 %Additional Action Suggested: > 8.0 %Note: Hemoglobin A1c results are invalid for patients with abnormal amounts of HbF. Blood transfusions may impact the HbA1c concentration in the patient sample. Estimated Average Glucose 134 mg/dL [facility] Comment:eAG = Estimated ave rage glucose which is %A1C expressed asaverage glucose, using the formula of the [id number] Glucose study (ADAG), Diabetes Care, Vol.31,#8,2007 Blood Venous blood specimen / Unknown 01/21/2025 10:13 AM EDT 01/21/2025 11:14 AM EDT us Daija Parry DO LAB BLOOD ORDERABLES Final R esult Performing Organization Address City/[facility]/ZIP Co de Phone Number [facility] [address] [place] [phone] * POCT Rapid Influenza B PRINCE ID NOW (01/21/2025 9:40 AM EDT) [facility] Influenza B Negative Negative, Indeterminate [facility] QC Media Lot # [id number] [facility] Lot# Expiration Date [facility] Swab 01/21/2025 9:40 AM EDT us Daija Parry DO POINT OF CARE TEST ENTER/KATHY T ORDERABLES Final Result Performing Organization Address [facility] Co de Phone Number [facility] [address] [place] [phone] * POCT Rapid Influenza A PRINCE ID NOW (01/21/2025 9:39 AM EDT) Pathologist [facility] Influenza A Negative Negative, Indeterminate [facility] QC Media Lot # [id number] [facility] Lot# Expiration Date [facility] Swab 01/21/2025 9:39 AM EDT Daija Parry DO POINT OF CARE TEST ENTER/KATHY T ORDERABLES Final Result [facility] [address] [place] [phone] * POCT Rapid Covid-19 PRINCE ID NOW (01/21/2025 9:38 AM EDT) Pathologist [facility] Coronavirus Antigen PCR Negative Negative, Indeterminate, None Detected, Invalid, Specimen unsatisfactory for evaluation, Weakly Positive, 2+ QC Media Lot # [id number] Lot# Expiration Date Swab 01/21/2025 9:38 AM EDT Daija Parry DO POINT OF CARE TEST ENTER/KATHY T ORDERABLES Final Result * (ABNORMAL) POCT Hgb A1c (01/21/2025 9:00 AM EDT) [facility] Hemoglobin A1C 6.3(A) 4.0 - 5.7 % QC Media Lot # [id number] Lot# Expiration Date 122,027 Blood 01/21/2025 9:00 AM EDT Daija Parry DO POINT OF CARE TEST ENTER/KATHY T ORDERABLES Final Result * POCT Glucose (01/21/2025 9:00 AM EDT) Pathologist [facility] Glucose Blood, POC 156 60 - 200 mg/dL QC Media Lot # [id number] Lot# Expiration Date ,026 Blood Capillary blood specimen / Unknown 01/21/2025 9:00 AM EDT Daija Jurcsak DO POINT OF CARE TEST ENTER/KATHY T ORDERABLES Final Result * (ABNORMAL) Basic Metabolic Panel (01/20/2025 10:45 AM EDT) Sodium 140 135 - 145 mmol/L [facility] Potassium 4.2 3.3 - 5.1 mmol/L [facility] Chloride 106 96 - 108 mmol/L [facility] Carbon Dioxide 28 22 - 29 mmol/L [facility] Anion Gap 10(L) 12 - 20 [facility] Urea Nitrogen (BUN) 17(H) 9 - 16 mg/dL [facility] Creatinine, Serum 0.81 0.5 - 1.4 mg/dL [facility] Estimated Glomerular Filt Rate >60 [facility] Comment:Chronic Kidney Disea se: Estimated GFR < 60 mL/min/[id number] Kidney Disease: Estimated GFR < 15 mL/min/1.73m2 Glucose 140(H) 60 - 115 mg/dL [facility] Calcium 9.0 8.4 - 10.2 mg/dL [facility] 01/20/2025 10:4 5 AM EDT 01/20/2025 10:49 AM EDT us Generic External Data Provider LAB BLOOD ORDERAB LES Final Result [facility] [address] [place] [phone] * Culture, Urine, Routine (01/06/2025 9:58 AM EDT) Urine Urine specimen from urinary conduit / Unknown 01/06/2025 9:58 AM EDT 01/06/2025 10:02 AM EDT Comment:Urine Cath Narrative [facility] - 01/09/2025 2:56 PM EDT Urine Culture Report Result Urine Culture Consult Microbiology within 7 days if Urine Culture more definitive studies are clinically indicated. Streptococcus viridans group Quant < 10,000 cfu/mL Susc N/A Susceptibility not routinely performed on this isolate. Specimen Source: Urine Catheterized Generic External Data Provider LAB MICROBIOLOGY - GENERAL ORDERABLES Final Result Performing Organization Address [facility] Co de Phone Number [facility] [address] [place] [phone] * (ABNORMAL) Glucose, Whole Blood (01/06/2025 9:30 AM EDT) Pathologist [facility] Glucose, Whole Blood 152(H) 60 - 115 mg/dL [facility] Comment:METER #: [id number] 01/06/2025 9:30 AM EDT 01/06/2025 9:33 AM EDT Generic External Data Provider LAB BLOOD ORDERAB LES Final Result Performing Organization Address [facility] Co de Phone Number [facility] [address] [place] [phone] * HCG, Qualitative, Urine (01/06/2025 9:00 AM EDT) Pathologist [facility] Urine NEGATIVE NEGATIVE [facility] Comment:This test was develo ped to detect early . Falsenegative results may occur after the 5th - 7th week ofpregnancy when using this test method. If clinicallyindicated, consider a serum hCG. 01/06/2025 9:00 AM EDT 01/06/2025 9:07 AM EDT Generic External Data Provider LAB URINE ORDERAB LES Final Result Performing Organization Address [facility] Co de Phone Number [facility] [facility] [address] [place] [address] [phone] * (ABNORMAL) CBC auto differential (12/25/2024 3:29 PM EDT) Pathologist [facility] [place] White Blood Count 9.1 4.8 - 10.8 X10*3/uL [facility] Red Blood Count 4.45 4.20 - 5.50 X10*6/uL [facility] Hemoglobin 13.8 12.0 - 16.0 g/dl [facility] Hematocrit 39.3 37.0 - 47.0 % [facility] Mean Corpuscular Volume 88.3 80.0 - 98.0 fL [facility] Mean Corpuscular Hemoglobin 31.0 27.0 - 33.0 pg [facility] Mean Corpuscular HGB Conc 35.1(H) 31.0 - 35.0 g/dl [facility] Red Cell Distribution Width 12.5 11.0 - 16.0 % [facility] Platelet Count 275 160 - 400 X10*3/uL [facility] Mean Platelet Volume 10.0 9.4 - 12.3 fL [facility] Neutrophils Percent Auto 72.8 45 - 73 % [facility] Imm Gran Pct Auto 0.3 0.0 - 0.4 % [facility] Lymphocytes Percent Auto 19.7(L) 20 - 40 % [facility] Monocytes Percent Auto 5.9 2 - 11 % [facility] Eosinophils Percent Auto 1.0 0 - 4 % [facility] Basophils Percent Auto 0.3 0 - 2 % [facility] NRBC Pct Auto 0.0 0.0 - 0.2 /100WBC [facility] Neutrophils Absolute Auto 6.6 2.0 - 8.3 x10*3/uL [facility] Imm Gran Abs Auto 0.03 0.00 - 0.03 X10*3/uL [facility] Lymphocytes Absolute Auto 1.8 1.2 - 4.9 X10*3/uL [facility] Monocytes Absolute Auto 0.5 0.1 - 1.2 X10*3/uL [facility] Eosinophils Absolute Auto 0.1 0.0 - 0.4 X10*3/uL [facility] Basophils Absolute Auto 0.0 0.0 - 0.2 X10*3/uL [facility] NRBC Abs Auto 0.000 0.0 - 0.012 X10*3/uL [facility] 12/25/2024 3:29 PM EDT 12/25/2024 3:29 PM EDT us Generic External Data Provider LAB BLOOD ORDERAB LES Final Result Performing Organization Address [facility] Co de Phone Number [facility] [address] [place] [phone] * Lipase (12/25/2024 3:29 PM EDT) Lipase 21 8 - 78 U/L [facility] 12/25/2024 3:29 PM EDT 12/25/2024 3:29 PM EDT Generic External Data Provider LAB BLOOD ORDERAB LES Final Result Performing Organization Address [facility] Phone Number [facility] [address] [place] [phone] * Amylase (12/25/2024 3:29 PM EDT) Amylase 49 28 - 100 U/L [facility] 12/25/2024 3:29 PM EDT 12/25/2024 3:29 PM EDT Generic External Data Provider LAB BLOOD ORDERAB LES Final Result Performing Organization Address [facility] de Phone Number [facility] [address] [place] [phone] * (ABNORMAL) Comprehensive Metabolic Panel (12/25/2024 3:29 PM EDT) Sodium 139 135 - 145 mmol/L [facility] Potassium 4.5 3.3 - 5.1 mmol/L [facility] Chloride 106 96 - 108 mmol/L [facility] Carbon Dioxide 27 22 - 29 mmol/L [facility] Anion Gap 11(L) 12 - 20 [facility] Urea Nitrogen (BUN) 11 9 - 16 mg/dL [facility] Creatinine, Serum 0.82 0.5 - 1.4 mg/dL [facility] Estimated Glomerular Filt Rate >60 [facility] Comment:Chronic Kidney Disea se: Estimated GFR < 60 mL/min/1.51s2Iltadu Kidney Disease: Estimated GFR < 15 mL/min/1.73m2 Glucose 128(H) 60 - 115 mg/dL [facility] Calcium 9.6 8.4 - 10.2 mg/dL [facility] Bilirubin, Total 0.6 0.0 - 1.0 mg/dL [facility] Aspartate Amino Transferase 23 5 - 31 U/L [facility] Alanine Aminotransferase 24 0 - 31 U/L [facility] Total Protein 7.8 6.5 - 8.0 g/dL [facility] Albumin Level 4.4 3.5 - 5.0 g/dL [facility] Alkaline Phosphatase 65 39 - 117 U/L [facility] 12/25/2024 3:29 PM EDT 12/25/2024 3:29 PM EDT us Generic External Data Provider LAB BLOOD ORDERAB LES Final Result [facility] [address] [place] [phone] * POCT BENITO-14 Urine Drug Screen (12/02/2024 10:24 AM EDT) Only the most recent of2 resultswithin the time period is included. THC [...] - 12/02/2024 10:24 AM EDT .UTOX cup Lot#[id number] Exp. 01/13/26 Internal Pass Control Chloé Wilson BREWING TECHNICIAN POINT OF CARE TEST ENTER/EDIT ORDERABLES Final Result * Hepatitis C Antibody with Reflex to HCV, RNA, Quantitative, Real-Time PCR (07/15/2024 2:18 PM EDT) Hepatitis C Antibody Nonreactive Nonreactive [facility] Comment:Antibodies to HCV no t detected; does not exclude early acuteHCV infection. Blood Venous blood specimen / Unknown 07/15/2024 2:18 PM EDT 07/15/2024 2:18 PM EDT Daija Parry DO LAB BLOOD ORDERABLES Final R esult [facility] [address] [place] [phone] * HIV-1/2 Antigen and Antibodies, Fourth Generation, with Reflexes (07/15/2024 2:18 PM EDT) HIV AB/AG Nonreactive Nonreactive [facility] Comment:HIV-1 p24 Ag and/or HIV-1/HIV-2 Ab not detected.A test result that is nonreactive does not exclude thepossibility of exposure to or infection with HIV-1 and/orHIV-2. Nonreactive results in this assay for individualswith prior exposure to HIV-1 and/or HIV-2 may be due toantigen and antibody levels that are below the limit ofdetection of this assay.The [employer] HIV Ag/Ab Combo assay result andsupplemental assay results should be interpreted inconjunction with the patient's clinical presentation,history and other laboratory results. If the results areinconsistent with clinical evidence, additional testing issuggested to confirm the result. Blood Venous blood specimen / Unknown 07/15/2024 2:18 PM EDT 07/15/2024 2:18 PM EDT Daija Brinda DO LAB BLOOD ORDERABLES Final R esult Performing Organization Address City/[facility]/ZIP Co de Phone Number [facility] [address] [place] [address] [phone] * Lipid Panel, Standard (07/15/2024 2:18 PM EDT) Triglycerides 81 <150 mg/dL [facility] Comment:Desirable Triglyceri de: less than 150 mg/dLBorderline High Triglyceride 150-199 mg/dLHigh Triglyceride: 200-499 mg/dLVery High Triglyceride: greater than or equal to 5OO mg/dL Cholesterol 166 <200 mg/dL [facility] Comment:Desirable Cholestero l: less than 200 mg/dLBorderline High Cholesterol: 200-239 mg/dLHigh Cholesterol: greater than 239 mg/dL LDL Cholesterol Calculated 93 <100 mg/dL [facility] Comment:Desirable LDL: less than 100 mg/dLNear Optimal/Above Optimal LDL: 110- 129 mg/dLBorderline High LDL: 130-159 mg/dLHigh LDL: 160-189 mg/dLVery High LDL: greater than or equal to 190 mg/dL HDL Cholesterol 57 >40 mg/dL [facility] Comment:Desirable HDL: great er than 40 mg/dL Note: This HDL assay may give artificially low results in patients with liver disease. Blood Venous blood specimen / Unknown 07/15/2024 2:18 PM EDT 07/15/2024 2:18 PM EDT Daija Parry DO LAB BLOOD ORDERABLES Final R esult [facility] [address] [place] [phone] [phone] * BI Mammogram Screening Tomosynthesis Bilateral (02/14/2024 12:07 PM EST) Anatomical Region Laterality Modality Breast Bilateral Mammography 02/14/2024 12:0 7 PM EST Narrative 02/22/2024 4:11 PM EST [address] [place] [address] Mammography Report Signed Patient: Shereen Cuellar MR#: [id number] : 1975 Acct:[id number] Age/Sex: 48 / F ADM Date: 02/14/24 Loc: HO.MAMMO Attending Dr: Daija Parry DO Ordering Physician: Daija Parry DO Results: 1N egative Date of Service: 02/14/24 Follow Up: 1 Year From Orig inal Mammogram Procedure(s): MM tomosynthesis screening BI Accession Number(s): [id number] cc: Daija Parry DO EXAMINATION: MM SCREENING [...] 02/22/24 1608 DD/ 1207 TD/TT: 02/14/24 1223 [employer]: Procedure Note Donotuseinterpreter, Image - 02/22/[address] [place] [address] Mammography Report Signed Patient: Elba CuellarR#: [id number] : 1975Acct:[id number] Age/Sex: 48 / FADM Date: 02/14/24 Loc: HO.MAMMO Attending Dr: Daija Parry DO Ordering Physician: Daija Parryults: 1N egative Date of Service: 02/14/24Follow Up: 1 Year From Orig inal Mammogram Procedure(s): MM tomosynthesis screening BI Accession Number(s): [id number] cc: Daija Parry DO EXAMINATION: MM SCREENING [...] by: Sushila Moon DO 02/22/2024 04:08 PM [facility] [place] Dictated By: Sushila Moon DO Signed By: <Electronically signed by Sushila Moon DO in OV> 02/22/24 1608 DD/ 1207 TD/TT: 02/14/24 1223 [employer]: Daija Parry DO IMG BI PROCEDURES Final [...] has been evaluated with computer assisted technology. [facility] Revenue Analyst : SEE COMMENT [facility] Comment: ED, CT(ASCP) CT screening location: [place] [address] Interpretation/R esult: Negative for intraepithelial lesion or malignancy. [facility] LMP: NONE GIVEN [facility] PATHOLOGIST: SEE COMMENT [facility]OUND [facility] Comment: Sera Guzman M.D. Direct , Board Certified in Anatomic and Clinical Pathology and Cytopathology (electronic signature) Consulting Pathologist [facility] [address] [place] [address] Prev. BX: NONE [facility] Prev. PAP: NONE GIVEN [facility]OUND[facility] ON [facility] SYSTEM SOURCE: [facility] Statement Of Adequacy: SEE COMMENT [facility] Comment: Satisfactory for evaluation. Endocervical/transformation zone component present. Age and/or menstrual status not provided 11/24/2020 6:42 AM EDT us Daija Parry DO LAB PATHOLOGY ORDERABLES Fin al Result [facility] [address] * Colonoscopy (08/15/2012 8:08 AM EDT) Historical Provider HEALTH MAINTENANCE Final Result from Last 3 Months or Most Recently Relevant to Health Maintenance Insurance [facility]LY [facility]ARE < [address] [place] [address] DENTAL [place] [address] [place] [address] [place] [address] Care Teams Instrumentation Technician Relationship Specialty Start Date End Date Daija Parry DO [address] [place], [place] [phone] PCP - General Family Medicine 12/22/14 Ely Darling PharmD [address] [place] [address] Pharmacist Internal Medicine 11/22/22
--- OUTSIDE RECORDS SUMMARY | 2025-01-21 12:01 | XMS_ITS | Encounter Summary ---
Author Organization [employer] Address [address] [place] [address] 7[address] [place] [address] Care Team Providers Care Service Coordinator Name Role Phone Daija Parry DO Primary Care Provider Lopez Marroquin PharmD Unavailable Unavail able Ely Darling PharmD Unavailable [phone] Encounter Details Date Type Department Care Team ([facility] Contact Info) Description 03/13/2022 Orders Only [facility] [address] [place] [phone] Daija Parry DO [address] [place] [phone] Social History Tobacco Use Types Packs/Day Years [...] Upcoming Encounters Date Type Department Care Team ([facility] Contact Info) Description 02/03/2025 9:45 AM EDT Office Visit [facility] [address] [place] [phone] 03/12/2025 2:30 PM EST Office Visit [facility] OPTOMETRY [address] [place], [place] [phone] Arielle Farr, OD [address] [place] [address] documented as of this encounter Procedures Procedure [...] 10:15 AM EDT) Creatinine, Urine 326.51 mg/dL [facility] Microalbumin Urine 24.0 mg/L [facility] Microalbum Creatinine Ratio Ur 7.3 <30 ug/mg cr [facility] Comment:Albumin/Creatinine R atio Reference Ranges: Normal: < 30 ug/mg creatinine Microalbuminuria: 30 - 300 ug/mg creatinineClinical Albuminuria: > 300 ug/mg creatinine 01/02/2023 10:1 5 AM EDT 01/02/2023 11:37 AM EDT us Daija Parry DO LAB URINE ORDERABLES Final R esult [facility] [address] [place] [phone] [phone] * (ABNORMAL) TSH (06/29/2022 3:06 PM EDT) Thyroid Stimulating Hormone 8.15(H) 0.32 - 4.0 uIU/mL [facility] Comment:Note: A sustained TS H level above 2.5 uIU/mL may warrant further investigation. TSH 3rd Generation ([facility]) 06/29/2022 3:06 PM EDT 06/29/2022 3:06 PM EDT [facility] External Provider LAB BLO OD ORDERABLES Final Result Performing Organization Address [facility]/ZIP Co de Phone Number [facility] [address] [place] [phone] * T4, Free (06/29/2022 3:06 PM EDT) Pathologist [facility] Free T4 (Free Thyroxine) 0.77 0.71 - 1.85 ng/dL [facility] 06/29/2022 3:06 PM EDT 06/29/2022 3:06 PM EDT [facility] External Provider LAB BLO OD ORDERABLES Final Result Performing Organization Address [facility] Co de Phone Number [facility] [address] [place] [phone] * (ABNORMAL) Basic Metabolic Panel (06/29/2022 3:06 PM EDT) Pathologist [facility] Sodium 138 135 - 145 mmol/L [facility] Potassium 4.3 3.3 - 5.1 mmol/L [facility] Comment:Slight Hemolysis Chloride 104 96 - 108 mmol/L [facility] Carbon Dioxide 27 22 - 29 mmol/L [facility] Anion Gap 11(L) 12 - 20 [facility] Urea Nitrogen (BUN) 13 9 - 16 mg/dL [facility] Creatinine, Serum 0.71 0.5 - 1.4 mg/dL [facility] Estimated Glomerular Filt Rate >60 [facility] Comment:NOTE: For -Am erican individuals, multiply the result by 1.210.Chronic Kidney Disease: Estimated GFR < 60 mL/min/1.16j4Mnewvg Kidney Disease: Estimated GFR < 15 mL/min/1.73m2 Glucose 113 60 - 115 mg/dL [facility] Calcium 9.2 8.4 - 10.2 mg/dL [facility] 06/29/2022 3:06 PM EDT 06/29/2022 3:06 PM EDT [facility] External Provider LAB BLO OD ORDERABLES Final Result Performing Organization Address [facility] Co de Phone Number [facility] [address] [place] [phone] * Hemoglobin A1c (06/29/2022 3:06 PM EDT) Hemoglobin A1c 6.7 % [facility] Comment:Hemoglobin A1C Refer ence Range Adults: 4.8 - 6.0 % Non diabetic: < 6.0 % Goal: < 7.0 %Additional Action Suggested: > 8.0 %Note: Hemoglobin A1c results are invalid for patients with abnormal amounts of HbF. Blood transfusions may impact the HbA1c concentration in the patient sample. Estimated Average Glucose 146 mg/dL [facility] Comment:eAG = Estimated ave rage glucose which is %A1C expressed asaverage glucose, using the formula of the A4M-UehblluCidqurm Glucose study (ADAG), Diabetes Care, Vol.31,#8,Nov. 2007 06/29/2022 3:06 PM EDT 06/29/2022 3:06 PM EDT [facility] External Provider LAB BLO OD ORDERABLES Final Result Performing Organization Address [facility] Co de Phone Number [facility] [address] [place] [phone] * (ABNORMAL) CBC auto differential (06/29/2022 3:06 PM EDT) White Blood Count 9.9 4.8 - 10.8 X10*3/uL [facility] Red Blood Count 4.49 4.20 - 5.50 X10*6/uL [facility] Hemoglobin 13.8 12.0 - 16.0 g/dl [facility] Hematocrit 40.2 37.0 - 47.0 % [facility] Mean Corpuscular Volume 89.5 80.0 - 98.0 fL [facility] Mean Corpuscular Hemoglobin 30.7 27.0 - 33.0 pg [facility] Mean Corpuscular HGB Conc 34.3 31.0 - 35.0 g/dl [facility] Red Cell Distribution Width 13.2 11.0 - 16.0 % [facility] Platelet Count 277 160 - 400 X10*3/uL [facility] Mean Platelet Volume 9.3(L) 9.4 - 12.3 fL [facility] Neutrophils Percent Auto 74.2(H) 45 - 73 % [facility] Imm Gran Pct Auto 0.4 0.0 - 0.4 % [facility] Lymphocytes Percent Auto 17.4(L) 20 - 40 % [facility] Monocytes Percent Auto 7.1 2 - 11 % [facility] Eosinophils Percent Auto 0.6 0 - 4 % [facility] Basophils Percent Auto 0.3 0 - 2 % [facility] NRBC Pct Auto 0.0 0.0 - 0.2 /100WBC [facility] Neutrophils Absolute Auto 7.4 2.0 - 8.3 x10*3/uL [facility] Imm Gran Abs Auto 0.04(H) 0.00 - 0.03 X10*3/uL [facility] Lymphocytes Absolute Auto 1.7 1.2 - 4.9 X10*3/uL [facility] Monocytes Absolute Auto 0.7 0.1 - 1.2 X10*3/uL [facility] Eosinophils Absolute Auto 0.1 0.0 - 0.4 X10*3/uL [facility] Basophils Absolute Auto 0.0 0.0 - 0.2 X10*3/uL [facility] NRBC Abs Auto 0.000 0.0 - 0.012 X10*3/uL [facility] 06/29/2022 3:06 PM EDT 06/29/2022 3:06 PM EDT us [facility] External Provider LAB BLO OD ORDERABLES Final Result [facility] [address] [place] [phone] [phone] documented in this encounter Visit Diagnoses Not on filedocumented in this encounter Additional Health Concerns Assessment Noted Time PHQ-9 Depression Total Score: 24 022 10:57 AM EST documented as of this encounter Care Teams Service Coordinator Relationship Specialty Start Date End Date Daija Parry DO [address] [place] [address] PCP - General Family Medicine 12/22/14 Lopez Marroquin, PharmD [address] [place] [address] Pharmacist Internal Medicine 06/25/22 11/22/22 Ely Darling, AugustoD [address] [place] [address] Pharmacist Internal Medicine 11/22/22 documented as of this encounter
--- OUTSIDE RECORDS SUMMARY | 2025-01-21 12:01 | XMS_ITS | Encounter Summary ---
Author Organization [employer] Address [address] [place] [address] [address] [place] [address] Care Team Providers Care Software Reverse Engineer Name Role Phone aDija Parry DO Primary Care Provider Lopez Marroquin PharmD Unavailable Unavail able Ely Darling PharmD Unavailable Reason for Visit * Reason Onset Date Comments Med Refill 06/12/2022 Encounter Details Date Type Department Care Team (Late st Contact Info) Description 06/12/2022 Telephone [facility] [address] [place] [address] Daija Parry DO [address] [place], [place] [phone] Med Refill Social History Tobacco Use Types [...] (KlonoPIN) 0.5 MG tablet Please sent to [facility] [place] [facility] [place] documented in this encounter Plan of Treatment Upcoming Encounters Date Type Department Care Team (Late st Contact Info) Description 02/03/2025 9:45 AM EDT Office Visit [facility] [address] [facility] [place] [address] 03/12/2025 2:30 PM EST Office Visit [facility] OPTOMETRY [address] [place] [address] Arielle Farr, OD [address] [facility] [place] [address] documented as of this encounter Visit Diagnoses Not on filedocumented in this encounter Additional Health Concerns Assessment Noted Time PHQ-9 Depression Total Score: 24 023 11:12 AM EST documented as of this encounter Care Teams Software Reverse Engineer Relationship Specialty Start Date End Date Daija Parry DO [address] [place] [address] PCP - General Family Medicine 12/22/14 Lopez Marroquin, AugustoD [address] [place] [phone] Pharmacist Internal Medicine 06/25/22 11/22/22 Ely Darling PharmD [address] [place] [phone] Pharmacist Internal Medicine 11/22/22 documented as of this encounter
--- OUTSIDE RECORDS SUMMARY | 2025-01-21 12:01 | XMS_ITS | Encounter Summary ---
Author Organization [employer] Address [address] [place] [address] [address] [place] [address] Care Team Providers Care Cement Sprayer Helper Name Role Phone Daija Parry DO Primary Care Provider Lopez Marroquin PharmD Unavailable Unavail able Ely Darling PharmD Unavailable Reason for Visit * Reason Onset Date Comments Durable Medical Equipment 05/10/2022 Encounter Details Date Type Department Care Team (Late st Contact Info) Description 05/10/2022 Telephone [facility] [address] [place] [address] Daija Parry DO [address] [place], [place] [phone] Durable Medical Equipment Social History Tobacco Use [...] non fragrance wipes Please contact valentin at [phone] documented in this encounter Plan of Treatment Upcoming Encounters Date Type Department Care Team (Late st Contact Info) Description 02/03/2025 9:45 AM EDT Office Visit [facility] [address] [place] [address] 03/12/2025 2:30 PM EST Office Visit [facility] OPTOMETRY [address] [place], [place] [phone] Arielle Farr, OD [address] [place] [address] documented as of this encounter Visit Diagnoses Not on filedocumented in this encounter Additional Health Concerns Assessment Noted Time PHQ-9 Depression Total Score: 24 022 10:57 AM EST documented as of this encounter Care Teams Cement Sprayer Helper Relationship Specialty Start Date End Date Daija Parry DO [address] [place] [address] PCP - General Family Medicine 12/22/14 Lopez Marroquin, AugustoD [address] [place], [place] Pharmacist Internal Medicine 06/25/22 11/22/22 Ely Darling PharmD [address] [place] [address] Pharmacist Internal Medicine 11/22/22 documented as of this encounter
--- OUTSIDE RECORDS SUMMARY | 2025-01-21 12:01 | XMS_ITS | Encounter Summary ---
Author Organization [employer] Address [address] [facility] 7t [place] [address] Care Team Providers Care Interactive Video Technician Name Role Phone Daija Parry DO Primary Care Provider Ely Darling PharmD Unavailable Reason for Visit * Reason Comments Med Refill Encounter Details Date Type Department Care Team (Late st Contact Info) Description 09/30/2023 Refill [facility] [address] [place], [place] [phone] Daija Parry DO [address] [facility] [place] [address] Pain Social History Tobacco Use Types Packs/Day [...] 9:45 AM EDT Office Visit [facility] [address] [place] [address] 03/12/2025 2:30 PM EST Office Visit [facility] OPTOMETRY [address] [place] [address] Arielle Farr, OD [address] [place] [address] documented as of this encounter Goals Goal Patient Goal Type Associated Problems Recent Progress Patient-Stated? Author Blood Pressure < 140/90 Blood Pressure 132/78(2024 8:56 AM EDT) No Dellogromel Lopez, PharmD Hemoglobin A1c < 7 Result Component 6.3( 10:13 AM EDT) No Dellogono Lopez, PharmD Record your blood sugar as directed Result Component No Ely Darling PharmD documented as of this encounter Visit Diagnoses Diagnosis Pain Generalized pain documented in this encounter Additional Health Concerns Assessment Noted Time PHQ-9 Depression Total Score: 25 024 12:17 PM EDT documented as of this encounter Care Teams Interactive Video Technician Relationship Specialty Start Date End Date Daija Parry DO [address] [place] [address] PCP - General Family Medicine 12/22/14 Ely Darling PharmD [address] [place] [address] Pharmacist Internal Medicine 11/22/22 documented as of this encounter
--- OUTSIDE RECORDS SUMMARY | 2025-01-21 12:01 | XMS_ITS | Data Portability ---
Author Organization [facility], [facility] Address [address] [place] [address] Care Team Providers Care Material Attendant Name Role Phone Unavailable Primary Care Provider [phone] BRANDY SOARES Primary Care Provider HIM CCA OTHER Assessment Encounter Date Assessment Date Assessment LastModified by Organization Details LastModified Time 05/02/2024 05/02/2024 I provided real -time medical direction via phone for this encounter, and was available for additional phone based assistance as needed. I have reviewed and agree with the Assessment and Plan as documented by the Speech Lang Path. We discussed the diagnostic uncertainty of home [...] call 911- she verbalized understanding of instruction Not available 05/02/2024 15:50:45 Plan of Treatment Reminders Order Date Submit Date Provider Last Modified By Organization Details Last Modified Time Details Appointments None recorded. Lab rapid SARS CoV 2 Ag, QL IA, respiratory specimen 2024 025 [email or web address] 0 [facility], [address] [place] [address], [id number] 5 12:56:28 rapid flu (A+B) 2024 025 [email or web address] 0 [facility], [address] [place] [address], [id number] 5 12:56:28 glucose, fingerstick , blood 2024 025 [email or web address] 0 [facility], [address] [place] [address], [id number] 12:57:15 Referral None recorded. Procedures None recorded. Surgeries None recorded. Imaging None recorded. Medication Orders azithromyci n 250 mg tablet 2024 025 [email or web address] 0 [facility], [address] [place] [address], [id number], 12:56:28 azithromyci n 250 mg tablet 2024 025 [facility], [address] [place] [address], [id number], 17:00:20 ondansetron 4 mg disintegrat ing tablet [address] [facility], [address] [place] [address], [id number], 12:56:28 ondansetron 4 mg disintegrat ing tablet 2024 025 [facility], [address] [place] [address], [id number], 5 16:49:42 benzonatate 200 mg capsule 2024 025 [facility], [address] [place] [address], [id number], 5 16:20:18 albuterol sulfate HFA 90 mcg/actuati on aerosol inhaler 2024 025 [facility], [address] [place] [address], [id number], 5 17:00:19 Patient TargetsNo targets recorded. Patient InstructionsNo instructions recorded. Reason for Referral None Reported. Results Created Date Observation Date Name Description Value Unit Range Abnormal Flag Note LastModifiedBy Organization Detail LastModifiedTime 01/2405/02/2024 gluco se, angelae rstic k, blood Blood Glucose: mg/dl 136 Not Available [facility] [address] [place] [address], [id number] 05/02/2024 12:56:44 05/02/1905/02/2024 rapid flu (A+B) Flu negati ve Not Available [facility] ed [address] [place] [address], [id number] 05/02/2024 12:52:10 05/02/1905/02/2024 rapid SARS CoV 2 Ag, QL IA, respi rator y speci men rapid SARS CoV 2 Ag, QL IA, respiratory specimen negati ve Not Available [facility] ed [address] [place] [address], [id number] 05/02/2024 12:52:05 Result Notes None recorded. Medical Equipment None Reported. Allergies Allergen ID Allergen Name Allergen Category Reaction Reaction Severity Criticality Documentation Date Start Date Code Code System Note Provider Name and Address Organization Details Recorded Time 38562 cefuroxim e Not available Not available Not available Not available 05/02/2024 2194 RxNorm Not Available [facility] 09:43:20 Medications Name Sig [...] Not Available Not Available Not Available [employer] [place] Lite kit USE DIRECTED TO TEST BLOOD [...] % 154.94 cm 16 /min 98.2 [degF] 272383. 84 g 83 /min 135/88 mm[Hg] Not [...] Diagnosis SNOMED-CT Code Diagnosis ICD10 Code Diagnosis IMO Codes Diagnosis Note [id number] Christofer Nielson MD Main - [facility] [address] [place] [phone] 02/02/2022 14:45:48 02/07/2022 15:12:38 Essential hypertension [id number] I10 Reports a history of hypertensi on, BP 160/90. Asymptomat ic other than mild headache. No signs or symptoms of hypertensi ve emergency. Plan for PCP follow-up for repeat check and titration of medication s as needed. [id number] Kiersten Grissom MD Main - [facility] [address] [place] [phone] 05/02/2024 12:40:52 05/02/2024 19:34:49 Upper respiratory infection 64124876 J06.9 Likely bronchitis with negative COVID and [...] Ba Member ID Guarantor Name 08/12/2023 1 [facility] - DOS PRIOR TO 2022 - DUAL ELIGIBLE (MEDICARE REPLACEMENT/ADV ANTAGE - HMO) Shereen Cuellar [id number] Shereen Cuellar 05/02/2024 1 [facility] - DOS ON OR AFTER 2022 - DUAL ELIGIBLE - [employer] AND ONE CARE (MEDICARE REPLACEMENT/ADV ANTAGE - HMO) Shereen Cuellar [id number] Shereen Cuellar Notes Date Note Type Note Provider Name and Address Organization Details Recorded Time 02/02/2022 text/html HPI: Allergies: Cefuroxime Patient having elevated BP of 168/112 Hr 89. Pt currently on Varapamil [id number] daily and HCTz 25mg at night and [...] ................... ................... ................... ................... ................... ................... ........ Speech Lang Path Note: Pt states she has been dealing with hypertension on and off for a long time now. Pt states she has a mild headache now and is also hypertensive. Pt states she took Tylenol with good relief. Pt states she just needed a visit to have her blood pressure checked. Pt found to be hypertensive. [facility] consulted. Red flags discussed ................... ................... ................... ................... ................... ................... ................... ........ Disposition: Fulfilled Christofer Nielson MD [address] [place] [address],[address], [place], [phone], [email or web address] 02/02/2022 16:18:00 05/02/2024 text/html ROS as noted in the [facility] Nurse Triage Notes (Kelly Floyd - LONG): Reason For Request: Cough Chief Complaints: Cough PMH: Hypertension, COPD/Asthma, Fibromyalgia, Anxiety Disorder, Depression PMH Reviewed at 05/02/2024:43 Allergies Reviewed at 05/02/2024 - 09:43 Comments: Caller in to report member is reporting a productive cough and SOB. Did not elaborate on any other symptoms/complaints . hx of Asthma so does get SOB at times. Member has not tried anything OTC for symptoms Educated on response time and stated visit after 12pm [facility] Speech Lang Path Organization Information for [facility] Legal Name: [employer]. Address: [address] [place] [id number], Assembly Lead Person: Ken Dill MD CLIA No.: [id number] Speech Lang Path POC Test Results from [facility] Rapid COVID antigen (12:25:58) COVID: - Rapid influenza antigen (12:25:58) Flu: - ................... ................... ................... ................... ................... ................... ................... ........ Speech Lang Path Note From [facility]: [facility] makes pt contact a 48 YO F CC of cold like s/s for five days. [facility] obtains consent and uploads electronically. [facility] obtains vital signs and a negative covid [...] denies any sore throat or difficulty swallowing. [facility] contacts [facility] and explains above mentioned. [facility] prescribes azithromycin, ondansetron, benzoate, and a new mdi. PT is given two azithromycin tablets totaling 500mg, and 1 4mg ODT zofran which is given by [facility]. PT is to start antibiotics tomorrow and use the mdi 2 puffs four times a day. PT is explained if she develops a fever, severe sob, chest pain, or gets worse to call us back or go into the emergency department to be seen. Otherwise continue the prescribed medications and drink fluids and rest. PT understands [facility] clear. Pt allergy confirmed as cefuroxime ................... ................... ................... ................... ................... ................... ................... ........ [facility] Consulted: Kiersten Grissom ................... ................... ................... ................... ................... ................... ................... ........ Disposition: Fulfilled SEGMD: As above. Patient is complaining of post-tussive emesis- no diarrhea. Patient has Reglan but is requesting more Zofran. She has had no documented fever but has had chills. She reports being ill for 5 days Kiersten Grissom MD [address] [place] [address],[address], [place], [phone], [employer] 05/02/2024 15:52:47 OBGyn Episode No OBEpisode recorded.
--- OUTSIDE RECORDS SUMMARY | 2025-01-21 12:01 | XMS_ITS | Encounter Summary ---
Author Organization [facility] Address [address] [place] [address] 7[address] [place] [address] Care Team Providers Care Deep Fryer Assembler Name Role Phone Daija Parry DO Primary Care Provider Ely Darling PharmD Unavailable [phone] Encounter Details Date Type Department Care Team (Late st Contact Info) Description 01/20/2025 Orders Only GENERIC EXTERNAL DATA DEPARTMENT [...] 02/03/2025 9:45 AM EDT Office Visit [facility] MEDICINE [address] [place] [address] 03/12/2025 2:30 PM EST Office Visit [facility] OPTOMETRY [address] [place] [address] Yordan, Arielle, OD [address] [place] [address] documented as of this encounter Goals Goal Patient Goal Type Associated Problems Recent Progress Patient-Stated? Author Blood Pressure < 140/90 Blood Pressure 132/78(2024 8:56 AM EDT) No Lopez Marroquin, PharmD Hemoglobin A1c < 7 Result Component 6.3( 10:13 AM EDT) No Lopez Marroquin, PharmD Record your blood sugar as directed Result Component No Ely Darling, PharmD documented as of this encounter Procedures Procedure Name Priority Date/Time Associated Diagnosis Comments BASIC METABOLIC PANEL Routine 01/20/2025 10:45 AM EDT documented in this encounter Results * (ABNORMAL) Basic Metabolic Panel (01/20/2025 10:45 AM EDT) Sodium 140 135 - 145 mmol/L [facility] Potassium 4.2 3.3 - 5.1 mmol/L [facility] Chloride 106 96 - 108 mmol/L [facility] Carbon Dioxide 28 22 - 29 mmol/L [facility] Anion Gap 10(L) 12 - 20 [facility] Urea Nitrogen (BUN) 17(H) 9 - 16 mg/dL [facility] Creatinine, Serum 0.81 0.5 - 1.4 mg/dL [facility] Estimated Glomerular Filt Rate >60 [facility] Comment:Chronic Kidney Disea se: Estimated GFR < 60 mL/min/1.35r4Sqnekj Kidney Disease: Estimated GFR < 15 mL/min/1.73m2 Glucose 140(H) 60 - 115 mg/dL [facility] Calcium 9.0 8.4 - 10.2 mg/dL [facility] 01/20/2025 10:4 5 AM EDT 01/20/2025 10:49 AM EDT us Generic External Data Provider LAB BLOOD ORDERAB LES Final Result Performing Organization Address City/State/[facility] Co de Phone Number [facility] [address] [place] [address] [phone] documented in this encounter Visit Diagnoses Not on filedocumented in this encounter Additional Health Concerns Assessment Noted Time PHQ-9 Depression Total Score: 22 025 3:28 PM EDT documented as of this encounter Care Teams Deep Fryer Assembler Relationship Specialty Start Date End Date Daija Parry DO [address] [place] [address] PCP - General Family Medicine 12/22/14 Ely Darling PharmD [address] [place] [address] Pharmacist Internal Medicine 11/22/22 documented as of this encounter
--- OUTSIDE RECORDS SUMMARY | 2025-01-21 12:01 | XMS_ITS | Clinical Summary ---
Author Organization [facility] Address [address] [place] [address] Phone Care Team Providers Care Insurance Application Investigator Name Role Phone Daija Parry DO Primary [...] Do not crush or chew. Active pancrelipase, Ihm-Bczo-Dgql, (Creon) 63354-19032 units capsule Take 1 capsule by mouth [...] 9.6 8.7 - 10.7 mg/dL eGFR Non-Afr Hungarian 100 Total Bilirubin 0.4 MG/DL Bilirubin Direct [...] Most Recently Relevant to Health Maintenance Insurance [facility] One Care Dual SNP ([id number]) [facility] One Care Dual SNP ([id number]) Care Teams Insurance Application Investigator Relationship Specialty Start Date End Date Daija Parry DO PCP - General Family Medicine 03/13/22
--- OUTSIDE RECORDS SUMMARY | 2025-01-21 12:01 | XMS_ITS | Encounter Summary ---
Author Organization [employer] [facility] Address [address] [place] [address] 7t [place] [address] Care Team Providers Care Campus Security Officer Name Role Phone Daija Parry DO Primary Care Provider Lopez Marroquin PharmD Unavailable Unavail able Ely Darling PharmD Unavailable Reason for Visit * Reason Onset Date Comments Med Refill 06/12/2022 Encounter Details Date Type Department Care Team (Late st Contact Info) Description 06/12/2022 Refill [facility] [address] [place] [address] Daija Parry DO [address] [place], [place] [phone] Generalized anxiety disorder (Primary Dx) Social History [...] (Ambien) 10 MG tablet Please sent to [facility] - [place], [place] - [address] [place] [address] documented in this encounter Plan of Treatment Upcoming Encounters Date Type Department Care Team (Late st Contact Info) Description 02/03/2025 9:45 AM EDT Office Visit [facility] [address] [place] [address] 03/12/2025 2:30 PM EST Office Visit [facility] OPTOMETRY [address] [place] [address] Arielle Farr, OD [address] [place], [place] documented as of this encounter Visit Diagnoses Diagnosis Generalized anxiety disorder- Primary documented in this encounter Additional Health Concerns Assessment Noted Time PHQ-9 Depression Total Score: 24 023 11:12 AM EST documented as of this encounter Care Teams Campus Security Officer Relationship Specialty Start Date End Date Daija Parry DO [address] [place], [place] PCP - General Family Medicine 12/22/14 Lopez Marroquin, PharmD [address] [place] [address] Pharmacist Internal Medicine 06/25/22 11/22/22 Ely Darling PharmD [address] [place] [address] Pharmacist Internal Medicine 11/22/22 documented as of this encounter
--- OUTSIDE RECORDS SUMMARY | 2025-01-21 12:01 | XMS_ITS | Encounter Summary ---
Author Organization [employer] Address [address] [place] [address] [address]t [place] [address] Care Team Providers Care Foundry Manager Name Role Phone Daija Parry DO Primary Care Provider Ely Darling PharmD Unavailable Reason for Visit * Reason Comments Med Refill Encounter Details Date Type Department Care Team ([facility] st Contact Info) Description 01/21/2025 Refill [facility] [address] [place] [address] Daija Parry DO [address] [place] [address] Social History Tobacco Use Types Packs/Day Years [...] Description 02/03/2025 9:45 AM EDT Office Visit [facility] [address] [place] [address] 03/12/2025 2:30 PM EST Office Visit [facility] OPTOMETRY [address] [place] [address] Arielle Farr, OD [address] [place] [address] documented as of this encounter Goals Goal [...] documented as of this encounter Care Teams Foundry Manager Relationship Specialty Start Date End Date Daija Parry DO [address] [place], [place] [phone] PCP - General Family Medicine 12/22/14 Ely Darling PharmD [address] [place] [address] Pharmacist Internal Medicine 11/22/22 documented as of this encounter
--- OUTSIDE RECORDS SUMMARY | 2025-01-21 12:01 | XMS_ITS | Encounter Summary ---
Author Organization [employer] [facility] Address [address] [place] [address] [address]t [place] [address] Care Team Providers Care Building Trades Teacher Name Role Phone Daija Parry DO Primary Care Provider Ely Darling PharmD Unavailable Encounter Details Date Type Department Care Team ([facility] st Contact Info) Description 07/19/2023 Orders Only [facility] [address] [place] [address] ProviderAnnel MD Social History Tobacco Use Types [...] with others, in a hotel, in a nursing home, living outside on the street, on [...] Description 02/03/2025 9:45 AM EDT Office Visit [facility] [address] [place] [address] 03/12/2025 2:30 PM EST Office Visit [facility] OPTOMETRY [address] [place] [address] Yordan, Arielle, OD [address] [place] [address] documented as of this encounter Goals Goal [...] documented as of this encounter Care Teams Building Trades Teacher Relationship Specialty Start Date End Date Daija Parry DO [address] [place] [address] PCP - General Family Medicine 12/22/14 Ely Darling PharmD [address] [place] [address] Pharmacist Internal Medicine 11/22/22 documented as of this encounter
--- OUTSIDE RECORDS SUMMARY | 2025-01-21 12:01 | XMS_ITS | Encounter Summary ---
Author Organization [employer] Address [address] [place] [address] [address] [place] [address] Care Team Providers Care Podiatry Teacher Name Role Phone Daija Parry DO Primary Care Provider Ely Darling PharmD Unavailable [phone] Reason for Visit * Reason Onset Date Comments Med Refill 05/15/2024 Encounter Details Date Type Department Care Team (Late st Contact Info) Description 05/15/2024 Refill [facility] [address] [place] [address] Daija Parry DO [address] [place] [address] Pain Social History Tobacco Use Types Packs/Day [...] Description 02/03/2025 9:45 AM EDT Office Visit [facility] [address] [place] [address] 03/12/2025 2:30 PM EST Office Visit [facility] OPTOMETRY [address] [place] [address] Arielle Farr, OD [address] [place] [address] documented as of this encounter Goals Goal Patient Goal Type Associated Problems Recent Progress Patient-Stated? Author Blood Pressure < 140/90 Blood Pressure 132/78(2024 8:56 AM EDT) No Dellogono, Lopez, PharmD Hemoglobin A1c < 7 Result Component 6.3( 10:13 AM EDT) No Dellogono Lopez, PharmD Record your blood sugar as directed Result Component No PuEly alan, PharmD documented as of this encounter Visit Diagnoses Diagnosis Pain Generalized pain documented in this encounter Additional Health Concerns Assessment Noted Time PHQ-9 Depression Total Score: 25 024 12:17 PM EDT documented as of this encounter Care Teams Podiatry Teacher Relationship Specialty Start Date End Date Daija Parry DO [address] [place] [address] PCP - General Family Medicine 12/22/14 Ely Darling PharmD [address] [place] [address] Pharmacist Internal Medicine 11/22/22 documented as of this encounter
--- OUTSIDE RECORDS SUMMARY | 2025-01-21 12:01 | XMS_ITS | Encounter Summary ---
Author Organization [employer] Address [address] [place] [address] [address] [place] [address] Care Team Providers Care Automobile Assembly Supervisor Name Role Phone Daija Parry DO Primary Care Provider Ely Darling PharmD Unavailable [phone] Reason for Visit * Reason Onset Date Comments Nurse Triage 10/02/2024 Encounter Details Date Type Department Care Team ([facility] st Contact Info) Description 10/02/2024 Telephone [facility] [address] [place], [place] [phone] Daija Parry DO [address] [place] [address] Nurse Triage Social History Tobacco Use Types [...] to Shereen Cuellar to triage below at [phone]. Reports having nausea, abd pain and diarrhea. Pt states very watery with green stools. Pt denies an new foods, recent med changes or use of abx. No sick contacts. Intermittent abd pain. Per pt upper abdominal pain. Pt taking pantoprazole with no relief. Pt advised of disposition, agrees to seek [facility] for exam as no sick on site availability on teams at time of call. Reviewed [facility] operating hours and that wait times vary.Reviewed [...] caller accepted this outcome. Contact pt at [phone] documented in this encounter Plan of Treatment Upcoming Encounters Date Type Department Care Team (Late st Contact Info) Description 02/03/2025 9:45 AM EDT Office Visit [facility] [address] [place] [address] 03/12/2025 2:30 PM EST Office Visit [facility] OPTOMETRY [address] [place], [place] [phone] Arielle Farr, OD [address] [place] [address] documented as of this encounter Goals Goal [...] Noted Time PHQ-9 Depression Total Score: 22 07/10/2 025 3:28 PM EDT documented as of this encounter Care Teams Automobile Assembly Supervisor Relationship Specialty Start Date End Date Daija Parry DO [address] [place] [address] PCP - General Family Medicine 12/22/14 Puia, Ely, PharmD [address] [place] [address] Pharmacist Internal Medicine 11/22/22 documented as of this encounter
--- OUTSIDE RECORDS SUMMARY | 2025-01-21 12:01 | XMS_ITS | Encounter Summary ---
Author Organization [employer] [facility] Address [address] [place] [address] [address] [place] [address] Care Team Providers Care Sugar Cane Planter Name Role Phone Brinda Daija Primary Care Provider Ely Darling PharmD Unavailable [phone] Encounter Details Date Type Department Care Team (Latest Contact Info) Description 01/21/2025 Travel Social History Tobacco Use Types Packs/Day [...] 9:45 AM EDT Office Visit [facility] [address] [place] [address] 03/12/2025 2:30 PM EST Office Visit [facility] OPTOMETRY [address] [place] [address] Yordan, Arielle, OD [address] [place] [address] documented as of this encounter Goals Goal [...] documented as of this encounter Care Teams Sugar Cane Planter Relationship Specialty Start Date End Date Daija Parry DO [address] [place] [address] PCP - General Family Medicine 12/22/14 Puia, Ely, PharmD [address] [place] [address] Pharmacist Internal Medicine 11/22/22 documented as of this encounter
--- OUTSIDE RECORDS SUMMARY | 2025-01-21 12:01 | XMS_ITS | Encounter Summary ---
Author Organization [employer] Address [address] [place] [address] 7[address] [place] [address] Care Team Providers Care Jewelry Sales Coordinator Name Role Phone Daija Parry DO Primary Care Provider Ely Darling PharmD Unavailable [phone] Reason for Visit * Reason Onset Date Comments Durable Medical Equipment 01/20/2025 L&C: I ncontinence Supplies Encounter Details Date Type Department Care Team (Late st Contact Info) Description 01/20/2025 Telephone [facility] MEDICINE [address] [place] [address] Daija Parry DO 230 [place] [address] Durable Medical Equipment (L&C: Incontinence Supplies) Social History Tobacco Use Types Packs/Day Years [...] the past 12 months, has t he [employer], gas, oil or water company threatened to [...] encounter Miscellaneous Notes * Telephone Encounter - Laura Andrews - 01/20/2025 11:15 AM EDT Patient needs to be seen to follow up regarding Incontinence. Dalila is requesting an updated Clinical Note detailing continued necessity for Supplies. documented in this encounter Plan of Treatment Upcoming Encounters Date Type Department Care Team (Late st Contact Info) Description 02/03/2025 9:45 AM EDT Office Visit [facility] MEDICINE [address] [place] [address] 03/12/2025 2:30 PM EST Office Visit [facility] OPTOMETRY [address] [place] [address] Arielle Farr, LATRICIA 230 [place] [address] documented as of this encounter Goals Goal Patient Goal Type Associated Problems Recent Progress Patient-Stated? Author Blood Pressure < 140/90 Blood Pressure 132/78(2024 8:56 AM EDT) No Dellogono, Lopez, PharmD Hemoglobin A1c < 7 Result Component 6.3( 5 10:13 AM EDT) No Lopez Marroquin PharmD Record your blood sugar as directed Result Component No Ely Darling PharmD documented as of this encounter Visit Diagnoses Not on filedocumented in this encounter Additional Health Concerns Assessment Noted Time PHQ-9 Depression Total Score: 22 025 3:28 PM EDT documented as of this encounter Care Teams Jewelry Sales Coordinator Relationship Specialty Start Date End Date Daija Parry DO [address] [place] [address] PCP - General Family Medicine 12/22/14 Ely Darling PharmD [address] [place] [address] Pharmacist Internal Medicine 11/22/22 documented as of this encounter
--- OUTSIDE RECORDS SUMMARY | 2025-01-21 12:01 | XMS_ITS | Encounter Summary ---
Author Organization [employer] Address [address] [place] [address] 7t [place] [address] Care Team Providers Care Control Operator Name Role Phone Daija Parry DO Primary Care Provider Ely Darling PharmD Unavailable [phone] Encounter Details Date Type Department Care Team ([facility] st Contact Info) Description 12/01/2024 Refill [facility] MEDICINE [address] [place], [place] [phone] Daija Parry DO [address] [place] [address] Type 2 diabetes mellitus without complication, without long-term current use of insulin ([facility]) Social History Tobacco Use Types Packs/Day Years [...] Description 02/03/2025 9:45 AM EDT Office Visit [facility] MEDICINE [address] [place] [address] 03/12/2025 2:30 PM EST Office Visit [facility] OPTOMETRY [address] [place] [address] Arielle Farr, OD 230 [place] [address] documented as of this encounter Goals Goal [...] of insulin (HCC) documented in this encounter Additional Health Concerns Assessment Noted Time PHQ-9 Depression Total Score: 22 07/10/ 025 3:28 PM EDT documented as of this encounter Care Teams Control Operator Relationship Specialty Start Date End Date Daija Parry DO 230 [place] [address] PCP - General Family Medicine 12/22/14 Ely Darling PharmD 230 [place] [address] Pharmacist Internal Medicine 11/22/22 documented as of this encounter
--- OUTSIDE RECORDS SUMMARY | 2025-01-21 12:01 | XMS_ITS | Encounter Summary ---
Author Organization [employer] Address [address] [place] [address] 7[address] [place] [address] Care Team Providers Care Glass Etcher Helper Name Role Phone Daija Parry DO Primary Care Provider Lopez Marroquin PharmD Unavailable Unavail able Ely Darling PharmD Unavailable [phone] Encounter Details Date Type Department Care Team ([facility] Contact Info) Description 05/15/2022 Telephone [facility] MEDICINE [address] [place] [address] Daija Parry DO [address] [place] [address] Social History Tobacco Use Types Packs/Day Years [...] Upcoming Encounters Date Type Department Care Team ([facility] Contact Info) Description 02/03/2025 9:45 AM EDT Office Visit [facility] MEDICINE [address] [place] [address] 03/12/2025 2:30 PM EST Office Visit [facility] OPTOMETRY [address] [place] [address] Arielle Farr, LATRICIA [address] [place] [address] documented as of this encounter Visit Diagnoses Not on filedocumented in this encounter Additional Health Concerns Assessment Noted Time PHQ-9 Depression Total Score: 24 022 10:57 AM EST documented as of this encounter Care Teams Glass Etcher Helper Relationship Specialty Start Date End Date Daija Parry DO [address] [place] [address] PCP - General Family Medicine 12/22/14 Lopez Marroquin, AugustoD [address] [place] [address] Pharmacist Internal Medicine 06/25/22 11/22/22 Ely Darling, AugustoD [address] [place] [address] Pharmacist Internal Medicine 11/22/22 documented as of this encounter
--- OUTSIDE RECORDS SUMMARY | 2025-01-21 12:01 | XMS_ITS | Encounter Summary ---
Author Organization [employer] Address [address] [place] [address] 7[address] [place] [address] Care Team Providers Care Supervisor Fiber Locking Name Role Phone Daija Parry DO Primary Care Provider Ely Darling PharmD Unavailable [phone] Reason for Visit * Reason Onset Date Comments Appointment Request 10/19/2023 Encounter Details Date Type Department Care Team ([facility] st Contact Info) Description 10/19/2023 Telephone [facility] MEDICINE [address] [place], [place] [phone] Daija Parry DO 230 [place] [address] Appointment Request Social History Tobacco Use Types [...] Description 02/03/2025 9:45 AM EDT Office Visit [facility] MEDICINE [address] [place] [address] 03/12/2025 2:30 PM EST Office Visit [facility] OPTOMETRY [address] [place] [address] Yordan, Arielle, OD 230 [place] [address] documented as of this encounter Goals Goal [...] as of this encounter Care Teams Supervisor Fiber Locking Relationship Specialty Start Date End Date Daija Parry DO [address] [place] [address] PCP - General Family Medicine 12/22/14 Ely Darling PharmD [address] [place] [address] Pharmacist Internal Medicine 11/22/22 documented as of this encounter
[2025-01-21 12:11] LABS: Alanine Aminotransferase 21 U/L (0-31); Albumin Level 4.5 g/dL (3.5-5.0); Alkaline Phosphatase 71 U/L (39-117); Anion Gap 11 (12-20); Aspartate Amino Transferase 22 U/L (5-31); Blood Urea Nitrogen 12 mg/dL (9-16); Calcium 9.3 mg/dL (8.4-10.2); Carbon Dioxide 27 mmol/L (22-29); Chloride 105 mmol/L (96-108); Cholesterol 187 mg/dL (<200); Estimated Glomerular Filt Rate > 60; HDL Cholesterol 49 mg/dL (>40); Potassium 3.7 mmol/L (3.3-5.1); Sodium 139 mmol/L (135-145); Total Protein 7.8 g/dL (6.5-8.0); Triglycerides 165 mg/dL (<150)
[2025-01-21 12:13] LABS: Free T4 (Free Thyroxine) 0.64 ng/dL (0.71-1.85); Thyroid Stimulating Hormone 53.20 uIU/mL (0.32-4.0)
== END 2025-01-21 10:09 | disposition home or self-care (01) ==
LOC: HO.HHCL 10:08
PROVIDERS: PCP Family Medicine; Visit Provider Family Medicine
DX: E11.9 Type 2 diabetes mellitus without complications (principal); Z13.21 Encounter for screening for nutritional disorder
CPT/HCPCS: 36415; 80048; 80061; 80076; 82043; 82306; 82570; 83036; 84439; 84443; 85027

== ENCOUNTER 2025-01-27 13:52 | Outpatient (REF) | payer OTHER, SELFPAY ==
--- NOTE | ~2025-01-27 | XR_ITS ---
EXAMINATION: XR CHEST CLINICAL INFORMATION: worsening productive cough and SOB COMPARISON: June 28, 2023 TECHNIQUE: 2 views of the chest were obtained. FINDINGS: A suzie pin projects over the left upper mediastinum on the frontal view. Heart size is normal. Lungs are clear. No pleural effusion is evident. Anterior osteophytes are present in the lower thoracic spine. XR/XR chest 2V IMPRESSION: No acute disease Electronically signed by: Bebeto Melendez MD 01/27/2025 03:08 PM EDT
== END 2025-01-27 13:53 | disposition home or self-care (01) ==
LOC: HO.HHCX 13:52
PROVIDERS: PCP Family Medicine; Visit Provider Family Medicine
DX: R05.1 Acute cough (principal)
CPT/HCPCS: 71046

== ENCOUNTER → 2025-01-27 14:07 | Outpatient (BNV) | payer OTHER, SELFPAY | PROVIDERS: PCP Family Medicine; Visit Provider Radiology Diagnostic Radiology | DX: R05.9 Cough, unspecified (principal); R06.02 Shortness of breath | CPT/HCPCS: 71046 ==

== ENCOUNTER 2025-03-27 15:19 | Outpatient (AMB) | payer OTHER, SELFPAY ==
--- NOTE | 2025-03-27 15:16 | A.OFFVIS_ITS ---
Intake Visit Reasons: Bladder Botox/PVR/UA(set) Intake Note: Reason for Visit: Bladder Botox Follow Up Urology Medication: Solifenacin Blood Thinners: None Imaging: None Labs: None Casing Cooker Required: No Accompanied by: Self / Same As Patient Allergies cefuroxime (From CEFTIN) Allergy (Severe, Verified 03/27/25 15:17) HIVES HPI Comments Details: Shereen is a pleasant 47 year old female patient of Dr. Parry. She has a past medical history of allergic rhinitis, diabetes, arthritis, chronic pain syndrome, lumbar disc degeneration, fibromyalgia, hypothyroidism, interstitial cystitis, migraines, morbid obesity, obstructive sleep apnea, restrictive lung disease, and spinal stenosis. Telemedicine Evaluation 15 min Consultation [employer] Lacey Video Recent Botox repeated with Dr. Rivera 01/01 Has been adequate for urge control Does take a number of medications that promote urination including Jardiance and hydrochlorothiazide Is interested in being assessed for every six-month Botox Follow-up in early June with Dr. Rivera Urinary urgency and frequency Prior therapy with Myrbetriq that reported to not be working Does feel improvement with 5 mg [facility] - NAD Low PVR Cystoscopy performed - Minimal descensus on coughing at cystoscopy, Normal bladder Botox - 04/01, 01/01 [facility] Medical History Epicondylitis, lateral Nocturnal hypoxemia Dyspnea Hemorrhoids Pulmonary arteriovenous malformation Morbid obesity with BMI of 50.0-59.9, adult Recent bereavement Depression Morning headache Daytime somnolence Diabetes Asthma Pre-op examination Family history of colon cancer Greater trochanteric bursitis of left hip Greater trochanteric bursitis of right hip Hirsutism Varicose veins with pain Restless leg syndrome Congenital pulmonary arteriovenous malformation Fungal infection of skin of abdomen Diabetes mellitus Urinary frequency Patellofemoral arthralgia of right knee Obstructive sleep apnea Hypothyroidism Hypertension Urinary retention Left forearm pain Interstitial cystitis Spinal stenosis of lumbar region Chronic pain syndrome Disc degeneration, lumbar Spondylosis, lumbar, with myelopathy Morbid obesity due to excess calories Arthritis Fibromyalgia Migraines Hypothyroid Restrictive lung disease Allergic rhinitis AISHWARYA on CPAP Nausea and vomiting GERD (gastroesophageal reflux disease) Surgical History (Updated 03/27/25 @ 15:18 by MEGHNA Thompson) History of bladder surgery Hx of spinal surgery Hx of cystoscopy (06/30/24) Hx of colonoscopy History of esophagogastroduodenoscopy (EGD) Family History Father Alcoholism Mother Leukemia Maternal Aunt Breast cancer Sister Depression Vertigo Family/Other Heart problem Diabetes Cancer Brother Atherosclerotic cardiovascular disease Cardiomegaly Social History Household Members: Family Household Members Other:: Niece and great nieces and nephews Housing: Apartment Are you a primary healthcare business analyst to a significant other at home: No Do you presently have visiting nurse or other home services: No Alcohol intake: never Comment: NONE Patient Tobacco Use Status: Never used Tobacco e-Cigarette/Vaping Use: Never Used Second Hand Smoke Exposure: No Substance Use Type: Marijuana service: No Current occupational status: disabled 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 Sexual orientation: Decline to Answer Review of Systems Const All systems reviewed & are unremarkable except as noted in HPI and below Reports no additional complaints Resp Reports no additional complaints GI Reports no additional complaints Reports as per HPI Musc Reports no additional complaints Physical Exam Telemedicine evaluation Appropriate responses Regular breathing rate and rhythm HEENT Head: Yes normal to inspection Ears: hearing grossly normal bilaterally Eyes General: appearance normal, both eyes and all related structures Neck Neck: Yes normal visual inspection Chest Chest palpation & inspection: normal inspection of the chest Resp Effort & Inspection: normal respiratory effort and able to speak in complete sentences Telehealth Telehealth Telehealth Platform: [facility] Location of provider rendering services: practice address Location of patient: address on file Patient Identification confirmed using: Name, : Yes Telehealth method: video Patient verbally consented to treatment: Yes Patient verbally consented to billing insurance company: Yes Patient informed of any privacy concerns related to visit: Yes Minutes spent on Phone/Video with Pt.: 15 Assessment & Plan Assessment & Plan (1) Interstitial cystitis: Code(s): N30.10 - Interstitial cystitis (chronic) without hematuria Category: Medical (2) Overactive bladder: Code(s): N32.81 - Overactive bladder Category: Medical (3) Nocturia more than twice per night: Code(s): R35.1 - Nocturia Category: Medical Plan Follow-up early June Bladder stable Patient Instructions: This note is constructed using voice recognition software. While every effort has been made to ensure accuracy professor of astronomy errors may have been included. Imaging studies, laboratory and physical exam results were discussed and reviewed in detail. No major barriers to patient understanding were identified. An opportunity to ask questions regarding the treatment plan was provided. All questions were answered. The patient expressed understanding and agreement with the above treatment plan. The patient is aware they should contact our office by phone for worsening of their current condition or the appearance of new urologic symptoms. Compliance is encouraged with any medications and followup testing that is ordered. It is a privilege to participate in the urologic care of your patient. If you have any questions or concerns regarding treatment for the above conditions, or other urologic issues, please do not hesitate to contact me. The office telephone contact is [phone]. Sincerely, Dr Wilfred Simental MD, [facility] - Urology Compassionate Specialist Care for the Genitourinary System Coding Level of Care Code Tele Est Pt Level 3 ([address]) Diagnoses Interstitial cystitis N30.10 Overactive bladder N32.81 Nocturia more than twice per night R35.1
--- OUTSIDE RECORDS SUMMARY | 2025-03-27 16:27 | XMS_ITS | Encounter Summary ---
Author Organization [employer] Address [address] [place] [address] 7t [place] [address] [address] Team Prov[address] Care Ct Scan Technician Name Role Phone Daija Parry DO Primary Care Provider Ely Darling PharmD Unavailable Reason for Visit * Reason Onset Date Comments Nurse Triage 10/02/2024 Encounter Details Date Type Department Care Team ([facility] st Contact Info) Description 10/02/2024 Telephone [facility] MEDICINE [address] [place], [place] [phone] Daija Parry DO [address] [place] [address] Nurse Triage Social History Tobacco Use Types [...] to Shereen Cuellar to triage below at [phone]. Reports having nausea, abd pain and diarrhea. Pt states very watery with green stools. Pt denies an new foods, recent med changes or use of abx. No sick contacts. Intermittent abd pain. Per pt upper abdominal pain. Pt taking pantoprazole with no relief. Pt advised of disposition, agrees to seek [facility] for exam as no sick on site availability on teams at time of call. Reviewed [facility] operating hours and that wait times vary.Reviewed [...] caller accepted this outcome. Contact pt at [phone] documented in this encounter Plan of Treatment Upcoming Encounters Date Type Department Care Team (Late st Contact Info) Description 03/31/2025 9:45 AM EST Office Visit [facility] MEDICINE [address] [place] [address] 07/08/2025 2:30 PM EDT Office Visit [facility] OPTOMETRY [address] [place] [address] Tyler Farrn, OD [address] [place] [address] 09/11/2025 3:00 PM EDT Office Visit [facility] OPTOMETRY [address] [place] [address] Tyler Farrn, OD [address] [place] [address] documented as of this encounter Goals Goal Patient Goal Type Associated Problems Recent Progress Patient-Stated? Author Blood Pressure < 140/90 Blood Pressure 138/100(01/27 12:35 PM EDT) No Lopez Marroquin, PharmD Hemoglobin A1c < 7 Result Component 6.3( 10:13 AM EDT) No GregorylogLopez urena, PharmD Record your blood sugar as directed Result Component No Ely Darling PharmD documented as of this encounter Visit Diagnoses Not on filedocumented in this encounter Additional Health Concerns Assessment Noted Time PHQ-9 Depression Total Score: 22 04/ 025 3:28 PM EDT documented as of this encounter Care Teams Ct Scan Technician Relationship Specialty Start Date End Date Daija Parry DO [address] [place] [address] PCP - General Family Medicine 12/22/14 Ely Darling, Ashish [address] [place] [address] Pharmacist Internal Medicine 11/22/22 documented as of this encounter
--- OUTSIDE RECORDS SUMMARY | 2025-03-27 16:27 | XMS_ITS | Encounter Summary ---
Author Organization [employer] Address [address] [place] [address] [address]t [place] [address] Care Team Providers Care Software Application Tester Name Role Phone BrindaDaija Primary Care Provider [phone] Ely Darling PharmD Unavailable [phone] Reason for Visit * Reason Comments Med Refill Encounter Details Date Type Department Care Team ([facility] st Contact Info) Description 01/24/2023 Refill [facility] MEDICINE [address] [place] [address] Daphney Roca MD [address] [place] [address] Social History Tobacco Use Types Packs/Day Years [...] Description 03/31/2025 9:45 AM EST Office Visit [facility] MEDICINE [address] [place] [address] 07/08/2025 2:30 PM EDT Office Visit [facility] OPTOMETRY [address] [place] [address] Arielle Farr, OD [address] [place] [address] 09/11/2025 3:00 PM EDT Office Visit [facility] OPTOMETRY [address] [place] [address] YordanTylern, OD [address] [place] [address] documented as of this encounter Goals Goal [...] as of this encounter Care Teams Software Application Tester Relationship Specialty Start Date End Date Daija Parry DO [address] [place] [address] PCP - General Family Medicine 12/22/14 Ely Darling PharmD [address] [place] [address] Pharmacist Internal Medicine 11/22/22 documented as of this encounter
--- OUTSIDE RECORDS SUMMARY | 2025-03-27 16:27 | XMS_ITS | Encounter Summary ---
Author Organization [employer] Address [address] [place] [address] 7t [place] [address] Care Team Providers Care Business Computers Teacher Name Role Phone Daija Parry DO Primary Care Provider [phone] Ely Darling PharmD Unavailable Reason for Visit * Reason Onset Date Comments Med Refill 05/15/2024 Encounter Details Date Type Department Care Team (Late st Contact Info) Description 05/15/2024 Refill [facility] MEDICINE [address] [place] [address] Daija Parry DO [address] [place] [address] Pain Social History Tobacco Use Types Packs/Day [...] 9:45 AM EST Office Visit [facility] MEDICINE [address] [place] [address] 07/08/2025 2:30 PM EDT Office Visit [facility] OPTOMETRY [address] [place] [address] Arielle Farr, OD [address] [place] [address] 09/11/2025 3:00 PM EDT Office Visit [facility] OPTOMETRY [address] [place] [address] Arielle Farr, OD [address] [place] [address] documented as of this encounter Goals Goal [...] as of this encounter Care Teams Business Computers Teacher Relationship Specialty Start Date End Date Daija Parry DO [address] [place] [address] PCP - General Family Medicine 12/22/14 lEy Darling, AugustoD [address] [place] [address] Pharmacist Internal Medicine 11/22/22 documented as of this encounter
--- OUTSIDE RECORDS SUMMARY | 2025-03-27 16:27 | XMS_ITS | Encounter Summary ---
Author Organization [employer] Address [address] [place] [address] 7[address] [place] [address] Care Team Providers Care Utilization Review Specialist Name Role Phone Daija Parry DO Primary Care Provider [phone] Ely Darling PharmD Unavailable [phone] Reason for Visit * Reason Onset Date Comments Appointment Request 04/03/2023 Encounter Details Date Type Department Care Team ([facility] st Contact Info) Description 04/03/2023 Telephone [facility] MEDICINE [address] [place], [place] [phone] Daija Parry DO [address] [place] [address] Appointment Request Social History Tobacco Use Types [...] seen for headaches due to CPAP machine fha underwriter did offer to triage this call patient refused due to being out of town and is returning on 04/21/2023 documented in this encounter Plan of Treatment Upcoming Encounters Date Type Department Care Team (Late st Contact Info) Description 03/31/2025 9:45 AM EST Office Visit [facility] MEDICINE [address] [place] [address] 07/08/2025 2:30 PM EDT Office Visit [facility] OPTOMETRY [address] [place] [address] Arielle Farr, OD [address] [place] [address] 09/11/2025 3:00 PM EDT Office Visit [facility] OPTOMETRY [address] [place] [address] Arielle Farr, OD [address] [place] [address] documented as of this encounter Goals Goal Patient Goal Type Associated Problems Recent Progress Patient-Stated? Author Blood Pressure < 140/90 Blood Pressure 138/100(10/21 /2025 12:35 PM EDT) No Lopez Marroquin PharmD Hemoglobin A1c [...] documented as of this encounter Care Teams Utilization Review Specialist Relationship Specialty Start Date End Date Daija Parry DO [address] [place] [address] PCP - General Family Medicine 12/22/14 Ely Darling PharmD [address] [place] [address] Pharmacist Internal Medicine 11/22/22 documented as of this encounter
--- OUTSIDE RECORDS SUMMARY | 2025-03-27 16:28 | XMS_ITS | Encounter Summary ---
Author Organization [employer] Address [address] [place] [address] 7t [place] [address] Care Team Providers Care Communications Strategist Name Role Phone Daija Parry DO Primary Care Provider [phone] Ely Darling PharmD Unavailable Reason for Visit * Reason Onset Date Comments Med Refill 02/07/2024 Encounter Details Date Type Department Care Team ([facility] st Contact Info) Description 02/07/2024 Telephone [facility] MEDICINE [address] [place] [address] Daija Parry DO [address] [place] [address] Med Refill Social History Tobacco Use Types [...] 50 MG tablet To be sent to: [facility] - [place], [place] - [address] [facility] documented in this encounter Plan of Treatment Upcoming Encounters Date Type Department Care Team (Late st Contact Info) Description 03/31/2025 9:45 AM EST Office Visit [facility] MEDICINE [address] [place] [address] 07/08/2025 2:30 PM EDT Office Visit [facility] OPTOMETRY [address] [place] [address] Arielle Farr, OD [address] [place] [address] 09/11/2025 3:00 PM EDT Office Visit [facility] OPTOMETRY [address] [place] [address] Arielle Farr, OD [address] [place] [address] documented as of this encounter Goals Goal [...] documented as of this encounter Care Teams Communications Strategist Relationship Specialty Start Date End Date Daija Parry DO [address] [place] [address] PCP - General Family Medicine 12/22/14 Ely Darling, PharmD [address] [place] [address] Pharmacist Internal Medicine 11/22/22 documented as of this encounter
--- OUTSIDE RECORDS SUMMARY | 2025-03-27 16:28 | XMS_ITS | Encounter Summary ---
Author Organization [employer] Address [address] [facility] 7t [place] [address] Care Team Providers Care Packing And Wrapping Supervisor Name Role Phone Daija Parry DO Primary Care Provider [phone] Ely Darling PharmD Unavailable Reason for Visit * Reason Onset Date Comments Med Refill 08/29/2023 Encounter Details Date Type Department Care Team (Late st Contact Info) Description 08/29/2023 Refill [facility] MED & PEDS [address] [place] [address] Daija Parry DO [address] [facility] [place] [address] Chronic bilateral low back pain, unspecified whether [...] the past 12 months, has t he [id number], gas, oil or water company threatened to [...] Description 03/31/2025 9:45 AM EST Office Visit [facility] MEDICINE [address] [place] [address] 07/08/2025 2:30 PM EDT Office Visit [facility] OPTOMETRY [address] [place] [address] Arielle Farr, OD 230 [place] [address] 09/11/2025 3:00 PM EDT Office Visit [facility] OPTOMETRY [address] [place] [address] Arielle Farr, OD 230 [place] [address] documented as of this encounter Goals Goal Patient Goal Type Associated Problems Recent Progress Patient-Stated? Author Blood Pressure < 140/90 Blood Pressure 138/100(01/27 12:35 PM EDT) No Lopez Marroquin, PharmMahin Hemoglobin A1c < 7 Result Component 6.3( 10:13 AM EDT) No Lopez Marroquin PharmD Record your blood sugar as directed Result Component No Ely Darling PharmD documented as of this encounter Visit Diagnoses Diagnosis Chronic bilateral low back pain, unspecified whether sciatica present documented in this encounter Additional Health Concerns Assessment Noted Time PHQ-9 Depression Total Score: 25 024 12:17 PM EDT documented as of this encounter Care Teams Packing And Wrapping Supervisor Relationship Specialty Start Date End Date Daija Parry DO 230 [place] [address] PCP - General Family Medicine 12/22/14 Ely Darling PharmD [address] [place] [address] Pharmacist Internal Medicine 11/22/22 documented as of this encounter
--- OUTSIDE RECORDS SUMMARY | 2025-03-27 16:28 | XMS_ITS | Encounter Summary ---
Author Organization [employer] Address [address] [place] [address] 7t [place] [address] Care Team Providers Care Microfilm Duplicating Unit Supervisor Name Role Phone Daija Parry DO Primary Care Provider [phone] Ely Darling PharmD Unavailable Encounter Details Date Type Department Care Team ([facility] st Contact Info) Description 02/16/2025 Telephone [facility] MEDICINE 230 [place], [place] [phone] Daija Paryr DO 230 [place] [address] Social History Tobacco Use Types Packs/Day Years [...] Description 03/31/2025 9:45 AM EST Office Visit [facility] MEDICINE 230 [place] [address] 07/08/2025 2:30 PM EDT Office Visit [facility] OPTOMETRY [address] [place] [address] Arielle Farr, OD 230 [place] [address] 09/11/2025 3:00 PM EDT Office Visit [facility] OPTOMETRY [address] [place] [address] Arielle Farr, OD 230 [place] [address] documented as of this encounter Goals Goal Patient Goal Type Associated Problems Recent Progress Patient-Stated? Author Blood Pressure < 140/90 Blood Pressure 138/100(01/27 12:35 PM EDT) No Lopez Marroquin PharmD [...] documented as of this encounter Care Teams Microfilm Duplicating Unit Supervisor Relationship Specialty Start Date End Date Daija Parry DO 230 [place] [address] PCP - General Family Medicine 12/22/14 Ely Darling PharmD [address] [place] [address] Pharmacist Internal Medicine 11/22/22 documented as of this encounter
--- OUTSIDE RECORDS SUMMARY | 2025-03-27 16:28 | XMS_ITS | Encounter Summary ---
Author Organization [employer] Address [address] [place] [address] 7t [place] [address] Care Team Providers Care Ground Intelligence Officer Name Role Phone Daija Parry DO Primary Care Provider Ely Darling PharmD Unavailable Encounter Details Date Type Department Care Team ([facility] st Contact Info) Description 12/01/2024 Refill [facility] MEDICINE 230 [place], [place] [phone] Daija Parry DO 230 [place] [address] Type 2 diabetes mellitus without complication, without long-term current use of insulin ([facility]) Social History Tobacco Use Types Packs/Day Years [...] others, in a hotel, in a senior care, living outside on the street, on a [...] Description 03/31/2025 9:45 AM EST Office Visit [facility] MEDICINE 230 [place] [address] 07/08/2025 2:30 PM EDT Office Visit [facility] OPTOMETRY [address] [place] [address] Arielle Farr, OD [address] [place] [address] 09/11/2025 3:00 PM EDT Office Visit [facility] OPTOMETRY [address] [place] [address] Arielle Farr, OD [address] [place] [address] documented as of this encounter Goals Goal [...] documented as of this encounter Care Teams Ground Intelligence Officer Relationship Specialty Start Date End Date Daija Parry DO 230 [place] [address] PCP - General Family Medicine 12/22/14 Ely Darling PharmD [address] [place] [address] Pharmacist Internal Medicine 11/22/22 documented as of this encounter
--- OUTSIDE RECORDS SUMMARY | 2025-03-27 16:28 | XMS_ITS | Encounter Summary ---
Author Organization [employer] Address [address] [place] [address] 7t [place] [address] Care Team Providers Care Life Management Teacher Name Role Phone Daija Parry DO Primary Care Provider Lopez Marroquin PharmD Unavailable Unavail able Ely Darling PharmD Unavailable Reason for Visit * Reason Onset Date Comments Med Refill 06/12/2022 Encounter Details Date Type Department Care Team (Late st Contact Info) Description 06/12/2022 Refill [facility] MEDICINE 230 [place] [address] Daija Parry DO 230 [place], [place] [phone] Generalized anxiety disorder (Primary Dx) Social History [...] (Ambien) 10 MG tablet Please sent to [facility] [place], [place] - [address] [place] [address] documented in this encounter Plan of Treatment Upcoming Encounters Date Type Department Care Team (Late st Contact Info) Description 03/31/2025 9:45 AM EST Office Visit [facility] MEDICINE 230 [facility] [place] [address] 07/08/2025 2:30 PM EDT Office Visit [facility] OPTOMETRY [address] [facility] [place] [address] Arielle Farr, OD 230 [facility] [place] [address] 09/11/2025 3:00 PM EDT Office Visit [facility] OPTOMETRY [address] [facility] [place] [place] [address] Yordan, Arielle, OD 230 [facility] [place] [address] documented as of this encounter Visit Diagnoses Diagnosis Generalized anxiety disorder- Primary documented in this encounter Additional Health Concerns Assessment Noted Time PHQ-9 Depression Total Score: 24 023 11:12 AM EST documented as of this encounter Care Teams Life Management Teacher Relationship Specialty Start Date End Date Daija aPrry DO Munira [facility] [place] [address] PCP - General Family Medicine 12/22/14 Lopez Marroquin, PharmD [address] [place] [address] Pharmacist Internal Medicine 06/25/22 11/22/22 Ely Darling PharmD [address] [place] [address] Pharmacist Internal Medicine 11/22/22 documented as of this encounter
--- OUTSIDE RECORDS SUMMARY | 2025-03-27 16:28 | XMS_ITS | Encounter Summary ---
Author Organization [employer] Address 75 [facility] 7t [place] [address] Care Team Providers Care Hardware Press Operator Name Role Phone Daija Parry DO Primary Care Provider Ely Darling PharmD Unavailable Reason for Visit * Reason Onset Date Comments Med Refill 09/09/2023 Encounter Details Date Type Department Care Team (Late st Contact Info) Description 09/09/2023 Refill [facility] CHC MED & PEDS [address] [place], [place] [phone] Daija Parry DO 230 [facility] [place] [address] Chronic bilateral low back pain, unspecified whether [...] with others, in a hotel, in a long term, living outside on the street, on a [...] the past 12 months, has t he [employer], gas, oil or water company threatened to [...] Description 03/31/2025 9:45 AM EST Office Visit [facility] MEDICINE 230 [place] [address] 07/08/2025 2:30 PM EDT Office Visit [facility] OPTOMETRY [address] [place] [address] Arielle Farr, OD [address] [place] [address] 09/11/2025 3:00 PM EDT Office Visit [facility] OPTOMETRY [address] [place] [address] Arielle Farr, OD [address] [place] [address] documented as of this encounter Goals Goal [...] documented as of this encounter Care Teams Hardware Press Operator Relationship Specialty Start Date End Date Daija Parry DO 230 [place] [address] PCP - General Family Medicine 12/22/14 Ely Darling PharmD [address] [place] [address] Pharmacist Internal Medicine 11/22/22 documented as of this encounter
--- OUTSIDE RECORDS SUMMARY | 2025-03-27 16:28 | XMS_ITS | Encounter Summary ---
Author Organization [employer] Address [address] [place] [address] 7t [place] [address] Care Team Providers Care Environmental Compliance Manager Name Role Phone Daija Parry DO Primary Care Provider Lopez Marroquin PharmD Unavailable Unavail able Ely Darling PharmD Unavailable [phone] Encounter Details Date Type Department Care Team ([facility] Contact Info) Description 05/15/2022 Telephone [facility] MEDICINE [address] [place] [address] Daija Parry DO [address] [place] [address] Social History Tobacco Use Types Packs/Day Years [...] Upcoming Encounters Date Type Department Care Team ([facility] Contact Info) Description 03/31/2025 9:45 AM EST Office Visit [facility] MEDICINE [address] [place] [address] 07/08/2025 2:30 PM EDT Office Visit [facility] OPTOMETRY [address] [place] [address] Arielle Farr, OD [address] [place] [address] 09/11/2025 3:00 PM EDT Office Visit [facility] OPTOMETRY [address] [place] [address] Arielle Farr, OD [address] [place] [address] documented as of this encounter Visit Diagnoses Not on filedocumented in this encounter Additional Health Concerns Assessment Noted Time PHQ-9 Depression Total Score: 24 022 10:57 AM EST documented as of this encounter Care Teams Environmental Compliance Manager Relationship Specialty Start Date End Date Daija Parry DO [facility] [place] [address] PCP - General Family Medicine 12/22/14 Lopez Marroquin, PharmD [address] [place], [place] [address] [address] Pharmacist Internal Medicine 06/25/22 11/22/22 Ely Darling, AugustoD [facility] [place] [address] Pharmacist Internal Medicine 11/22/22 documented as of this encounter
--- OUTSIDE RECORDS SUMMARY | 2025-03-27 16:28 | XMS_ITS | Data Portability ---
Author Organization [employer] [facility] Address [address] [place] [address] Care Team Providers Care Hospital Medicine Director Name Role Phone Unavailable Primary Care Provider [phone] BRANDY SOARES Primary Care Provider HIM CCA OTHER Assessment Encounter Date Assessment Date Assessment LastModified by Organization Details LastModified Time 05/02/2024 05/02/2024 I provided real -time medical direction via phone for this encounter, and was available for additional phone based assistance as needed. I have reviewed and agree with the Assessment and Plan as documented by the Display Decorator. We discussed the diagnostic uncertainty of home [...] call 911- she verbalized understanding of instruction [email or web address] Not available 05/02/2024 15:50:45 Plan of Treatment Reminders Order Date Submit Date Provider Last Modified By Organization Details Last Modified Time Details Appointments None recorded. Lab rapid SARS CoV 2 Ag, QL IA, respiratory specimen 2024 025 [email or web address] 0 [facility], [address] [place] [address], [id number] 5 12:56:28 rapid flu (A+B) 2024 025 [email or web address] 0 [facility], [address] [place] [address], [id number] 5 12:56:28 glucose, fingerstick , blood 2024 025 [email or web address] 0 [facility], [address] [place] [address], [phone] 12:57:15 Referral None recorded. Procedures None recorded. Surgeries None recorded. Imaging None recorded. Medication Orders azithromyci n 250 mg tablet 2024 025 [email or web address] 0 [facility], [address] [place] [address], [id number], 12:56:28 azithromyci n 250 mg tablet 2024 025 [facility], [address] [place] [address], [id number], 17:00:20 ondansetron 4 mg disintegrat ing tablet [address] [facility] [address] [facility], [address] [place] [address], [id number], 12:56:28 ondansetron 4 mg disintegrat ing tablet 2024 025 [facility], [address] [place] [address], [id number], 5 16:49:42 benzonatate 200 mg capsule 2024 025 [facility], [address] [place] [address], [id number], 5 16:20:18 albuterol sulfate HFA 90 mcg/actuati on aerosol inhaler 2024 025 [facility], [address] [place] [address], [id number], 5 17:00:19 Patient TargetsNo targets recorded. Patient InstructionsNo instructions recorded. Reason for Referral None Reported. Results Created Date Observation Date Name Description Value Unit Range Abnormal Flag Note LastModifiedBy Organization Detail LastModifiedTime 01/2405/02/2024 gluco se, angelae rstic k, blood Blood Glucose: mg/dl 136 Not Available [facility] [address] [place] [address], [phone] 05/02/2024 12:56:44 05/02/1905/02/2024 rapid flu (A+B) Flu negati ve Not Available [facility] ed [address] [place] [address], [phone] 05/02/2024 12:52:10 05/02/1905/02/2024 rapid SARS CoV 2 Ag, QL IA, respi rator y speci men rapid SARS CoV 2 Ag, QL IA, respiratory specimen negati ve Not Available [facility] ed [address] [place] [address], [phone] 05/02/2024 12:52:05 Result Notes None recorded. Medical Equipment None Reported. Allergies Allergen ID Allergen Name Allergen Category Reaction Reaction Severity Criticality Documentation Date Start Date Code Code System Note Provider Name and Address Organization Details Recorded Time 28795 cefuroxim e Not available Not available Not available Not available 05/02/2024 2194 RxNorm Not Available [facility] 09:43:20 Medications Name Sig Start [...] Not Available Not Available Not Available [employer] [place] Lite kit USE DIRECTED TO TEST BLOOD [...] t Available Vitals Date Recorded Oxygen saturation Body height Respiratory rate Body temperature Body weight Heart rate Systolic And Diastolic Provider Name and Address Organization Details Last Updated DateTime 5 99 % 154.94 cm 16 /min 98.2 [degF] 075602. 84 g 83 /min 135/88 mm[Hg] Not Available [facility] - production 5 12:40:58 Date Recorded Oxygen saturation Respiratory rate Heart rate Body temperature Systolic And Diastolic Provider Name and Address Organization Details Last Updated DateTime 2 96 % 20 /min 77 /min 98.4 [...] [id number] Christofer Nielson MD Main - [facility] [address] [place] [phone] 02/02/2022 14:45:48 02/07/2022 15:12:38 Essential hypertension [id number] I10 Reports a history of hypertensi on, BP 160/90. Asymptomat ic other than mild headache. No signs or symptoms of hypertensi ve emergency. Plan for PCP follow-up for repeat check and titration of medication s as needed. [id number] Kiersten Grissom MD Main - [facility] [address] [place] [phone] 05/02/2024 12:40:52 05/02/2024 19:34:49 Upper respiratory infection 48915550 J06.9 Likely bronchitis with negative COVID and [...] Ba Member ID Guarantor Name 08/12/2023 1 [facility] - DOS PRIOR TO 2022 - DUAL ELIGIBLE (MEDICARE REPLACEMENT/ADV ANTAGE - HMO) Shereen Cuellar [id number] Shereen Cuellar 05/02/2024 1 [facility] - DOS ON OR AFTER 2022 - DUAL ELIGIBLE - USP OPTIONS AND ONE CARE (MEDICARE REPLACEMENT/ADV ANTAGE - HMO) Shereen Cuellar [id number] Shereen Cuellar Notes Date Note Type Note Provider Name and Address Organization Details Recorded Time 02/02/2022 text/html HPI: Allergies: Cefuroxime Patient having elevated BP of 168/112 Hr 89. Pt currently on Varapamil AC766gc daily and HCTz 25mg at night and [...] ................... ................... ................... ................... ................... ................... ........ Display Decorator Note: Pt states she has been dealing with hypertension on and off for a long time now. Pt states she has a mild headache now and is also hypertensive. Pt states she took Tylenol with good relief. Pt states she just needed a visit to have her blood pressure checked. Pt found to be hypertensive. [facility] consulted. Red flags discussed ................... ................... ................... ................... ................... ................... ................... ........ Disposition: Fulfilled Christofer Nielson MD [address] [place] [address],[address], [place], [phone], [employer] 02/02/2022 16:18:00 05/02/2024 text/html ROS as noted in the HPI CRC Nurse Triage Notes (Kelly Floyd - [...] and stated visit after 12pm Nishi ALVES Display Decorator Organization Information for [facility] Legal Name: [email or web address]. Address: [address] [place] [address], Timber Framer Helper: Ken Dill MD CLIA No.: [id number] Display Decorator POC Test Results from [facility] Rapid COVID antigen (12:25:58) COVID: - Rapid influenza antigen (12:25:58) Flu: - ................... ................... ................... ................... ................... ................... ................... ........ Display Decorator Note From [facility]: [facility] makes pt contact a 48 YO F CC of cold like s/s for five days. [facility] obtains consent and uploads electronically. [facility] obtains vital signs and a negative covid [...] denies any sore throat or difficulty swallowing. [facility] contacts [facility] and explains above mentioned. [facility] prescribes azithromycin, ondansetron, benzoate, and a new mdi. PT is given two azithromycin tablets totaling 500mg, and 1 4mg ODT zofran which is given by [facility]. PT is to start antibiotics tomorrow and use the mdi 2 puffs four times a day. PT is explained if she develops a fever, severe sob, chest pain, or gets worse to call us back or go into the emergency department to be seen. Otherwise continue the prescribed medications and drink fluids and rest. PT understands [facility] clear. Pt allergy confirmed as cefuroxime ................... ................... ................... ................... ................... ................... ................... ........ [facility] Consulted: Kiersten Grissom ................... ................... ................... ................... ................... ................... ................... ........ Disposition: Fulfilled SEGMD: As above. Patient is complaining of post-tussive emesis- no diarrhea. Patient has Reglan but is requesting more Zofran. She has had no documented fever but has had chills. She reports being ill for 5 days Kiersten Grissom MD [address] [place] [address],[address] [facility], [place], [phone], [employer] 05/02/2024 15:52:47 OBGyn Episode No OBEpisode recorded.
--- OUTSIDE RECORDS SUMMARY | 2025-03-27 16:28 | XMS_ITS | Encounter Summary ---
Author Organization [employer] Address [address] [place] [address] 7 [place] [address] Care Team Providers Care Boat Canvas Installer Name Role Phone Daija Parry DO Primary Care Provider Ely Darling PharmD Unavailable Reason for Visit * Reason Comments Med Refill Encounter Details Date Type Department Care Team ([facility] st Contact Info) Description 02/11/2024 Refill [facility] MEDICINE [address] [place] [address] Daija Parry DO [address] [place] [address] Hypothyroidism, unspecified type Social History Tobacco Use [...] Description 03/31/2025 9:45 AM EST Office Visit [facility] MEDICINE [address] [place] [address] 07/08/2025 2:30 PM EDT Office Visit [facility] OPTOMETRY [address] [place] [address] Arielle Farr, OD [address] [place] [address] 09/11/2025 3:00 PM EDT Office Visit [facility] OPTOMETRY [address] [place] [address] Arielle Farr, OD [address] [place] [address] documented as of this encounter Goals Goal Patient Goal Type Associated Problems Recent Progress Patient-Stated? Author Blood Pressure < 140/90 Blood Pressure 138/100(01/27 12:35 PM EDT) No Lopez Marroquin, PharmMahin Hemoglobin A1c < 7 Result Component 6.3( 10:13 AM EDT) No Lopez Marroquin, PharmMahin Record your blood sugar as directed Result Component No Ely Darling PharmD documented as of this encounter Visit Diagnoses Diagnosis Hypothyroidism, unspecified type documented in this encounter Additional Health Concerns Assessment Noted Time PHQ-9 Depression Total Score: 25 024 12:17 PM EDT documented as of this encounter Care Teams Boat Canvas Installer Relationship Specialty Start Date End Date Daija Parry DO [address] [place] [address] PCP - General Family Medicine 12/22/14 Ely Darling PharmD [address] [place] [address] Pharmacist Internal Medicine 11/22/22 documented as of this encounter
--- OUTSIDE RECORDS SUMMARY | 2025-03-27 16:28 | XMS_ITS | Encounter Summary ---
Author Organization [employer] Address [address] [facility] 7t [place] [address] Care Team Providers Care Budget Controller Name Role Phone Daija Parry DO Primary Care Provider Ely Darling PharmD Unavailable Reason for Visit * Reason Comments Med Refill Encounter Details Date Type Department Care Team (Late st Contact Info) Description 09/30/2023 Refill [facility] CHC MED & PEDS [address] [place], [place] [phone] Daija Parry DO 230 [facility] [place] [address] Pain Social History Tobacco Use Types Packs/Day [...] Description 03/31/2025 9:45 AM EST Office Visit [facility] MEDICINE [address] [place] [address] 07/08/2025 2:30 PM EDT Office Visit [facility] OPTOMETRY [address] [place] [address] Arielle Farr, OD [address] [place] [address] 09/11/2025 3:00 PM EDT Office Visit [facility] OPTOMETRY [address] [place] [address] Arielle Farr, OD [address] [place] [address] documented as of this encounter Goals Goal [...] documented as of this encounter Care Teams Budget Controller Relationship Specialty Start Date End Date Daija Parry DO 230 [place], [place] [phone] PCP - General Family Medicine 12/22/14 Ely Darling, PharmD [address] [place] [address] Pharmacist Internal Medicine 11/22/22 documented as of this encounter
--- OUTSIDE RECORDS SUMMARY | 2025-03-27 16:28 | XMS_ITS | Encounter Summary ---
Author Organization [employer] Address [address] [place] [address] 7[address] [place] [address] Care Team Providers Care Transplant Case Manager Name Role Phone Daija Parry DO Primary Care Provider [phone] Ely Darling PharmD Unavailable Reason for Visit * Reason Onset Date Comments Referral 03/09/2025 Encounter Details Date Type Department Care Team ([facility] st Contact Info) Description 03/09/[address] [facility] [address] [place], [place] [phone] Daija Parry DO [address] [place] [address] Referral Social History Tobacco Use Types Packs/Day Years [...] encounter Miscellaneous Notes * Telephone Encounter - Nathaniel Mederos - 03/09/2025 9:21 AM EST Tc from pt requesting a new referral for physical therapy to be sent once again. [address] [place] [id number] [phone] Fax number [phone] documented in this encounter Plan of Treatment Upcoming Encounters Date Type Department Care Team (Late st Contact Info) Description 03/31/2025 9:45 AM EST Office Visit [facility] [address] [place] [address] 07/08/2025 2:30 PM EDT Office Visit [facility] [address] [place] [address] Arielle Farr, OD [address] [place] [address] 09/11/2025 3:00 PM EDT Office Visit [facility] [address] [place] [address] Arielle Farr, OD [address] [place] [address] documented as of this encounter Goals Goal Patient Goal Type Associated Problems Recent Progress Patient-Stated? Author Blood Pressure < 140/90 Blood Pressure 138/100(01/27 12:35 PM EDT) No Lopez Marroquin PharmD Hemoglobin A1c < 7 Result Component 6.3( 10:13 AM EDT) No Lopez Marroquin, PharmMahin Record your blood sugar as directed Result Component No Ely Darling PharmD Help patients manage their type 2 diabetes Care Plan Help patients manage their type 2 diabetes No Daija Ortiz, PharmD Weekly blood pressure task Care Plan Weekly blood pressure task No OrtizDaija carey, PharmD Help patients manage their type 2 diabetes Care Plan Help patients manage their type 2 diabetes No OrtizAnna careyfer, PharmD Patient has chronic kidney disease Care Plan Patient has chronic kidney disease No OrtizDaija carey, PharmD Weekly blood pressure task Care Plan Weekly blood pressure task No Daija Ortiz, PharmD Patient has chronic kidney disease Care Plan Patient has chronic kidney disease No OrtizAnna careyfer, PharmD Weekly blood pressure task Care Plan Weekly blood pressure task No OrtizAnna careyfer, PharmD Weekly blood pressure task Care Plan Weekly blood pressure task No OrtizAnna careyfer, PharmD Patient has chronic kidney disease Care Plan Patient has chronic kidney disease No OrtizAnna careyfer, PharmD Patient has chronic kidney disease Care Plan Patient has chronic kidney disease No OrtizAnna careyfer, PharmD Weekly blood pressure task Care Plan Weekly blood pressure task No Jef Andrews Weekly blood pressure task Care Plan Weekly blood pressure task No Jef Andrews Patient has chronic kidney disease Care Plan Patient has chronic kidney disease No Jef Andrews Patient has chronic kidney disease Care Plan Patient has chronic kidney disease No Jfe Andrews Weekly blood pressure task Care Plan Weekly blood pressure task No Nathaniel Mederos Weekly blood pressure task Care Plan Weekly blood pressure task No Nathaniel Mederos Patient has chronic kidney disease Care Plan Patient has chronic kidney disease No Nathaniel Mederos Patient has chronic kidney disease Care Plan Patient has chronic kidney disease No Nathaniel Mederos documented as of this encounter Visit Diagnoses Not on filedocumented in this encounter Additional Health Concerns Active Problems Noted Date Diagnosed Date Help patients manage their type 2 diabetes 11/14 /2025 Weekly blood pressure task 02/20/2025 Help patients manage their type 2 diabetes 02/20 Patient has chronic kidney disease 02/20/2025 Weekly blood pressure task 02/20/2025 Patient has chronic kidney disease 02/20/2025 Weekly blood pressure task 02/20/2025 Weekly blood pressure task 02/20/2025 Patient has chronic kidney disease 02/20/2025 Patient has chronic kidney disease 02/20/2025 Weekly blood pressure task 02/26/2025 Weekly blood pressure task 02/26/2025 Patient has chronic kidney disease 02/26/2025 Patient has chronic kidney disease 02/26/2025 Weekly blood pressure task 03/09/2025 Weekly blood pressure task 03/09/2025 Patient has chronic kidney disease 03/09/2025 Patient has chronic kidney disease 03/09/2025 Assessment Noted Time PHQ-9 Depression Total Score: 22 025 3:28 PM EDT documented as of this encounter Care Teams Transplant Case Manager Relationship Specialty Start Date End Date Daija Parry DO [address] [place] [address] PCP - General Family Medicine 12/22/14 Ely Darling PharmD [address] [place] [address] Pharmacist Internal Medicine 11/22/22 documented as of this encounter
--- OUTSIDE RECORDS SUMMARY | 2025-03-27 16:28 | XMS_ITS | Encounter Summary ---
Author Organization [employer] Address [address] [place] [address] 7[address] [place] [address] Care Team Providers Care Gasoline Engine Assembler Name Role Phone Daija Parry DO Primary Care Provider Lopez Marroquin PharmD Unavailable Unavail able Ely Darling PharmD Unavailable Reason for Visit * Reason Onset Date Comments Med Refill 06/12/2022 Encounter Details Date Type Department Care Team (Late st Contact Info) Description 06/12/2022 Telephone [facility] [address] [place] [address] Daija Parry DO [address] [place], [place] [phone] Med Refill Social History Tobacco Use Types [...] (KlonoPIN) 0.5 MG tablet Please sent to [facility] [place] - [address] documented in this encounter Plan of Treatment Upcoming Encounters Date Type Department Care Team (Late st Contact Info) Description 03/31/2025 9:45 AM EST Office Visit [facility] [address] [place] [address] 07/08/2025 2:30 PM EDT Office Visit [facility] [address] [facility] [place] [address] Arielle Farr, OD [address] [place] [address] 09/11/2025 3:00 PM EDT Office Visit [facility] [address] [place] [address] Arielle Farr, OD [address] [place] [address] documented as of this encounter Visit Diagnoses Not on filedocumented in this encounter Additional Health Concerns Assessment Noted Time PHQ-9 Depression Total Score: 24 023 11:12 AM EST documented as of this encounter Care Teams Gasoline Engine Assembler Relationship Specialty Start Date End Date Daija Parry [place] [address] PCP - General Family Medicine 12/22/14 Lopez Marroquin, PharmD [facility] [place] [address] Pharmacist Internal Medicine 06/25/22 11/22/22 Ely Darling, AugustoD [facility] [place] [address] Pharmacist Internal Medicine 11/22/22 documented as of this encounter
--- OUTSIDE RECORDS SUMMARY | 2025-03-27 16:28 | XMS_ITS | Encounter Summary ---
Author Organization [employer] Address [address] [place] [address] 7[address] [place] [address] Care Team Providers Care Ingot Supervisor Name Role Phone Daija Parry DO Primary Care Provider Ely Darling PharmD Unavailable Reason for Visit * Reason Comments Med Refill Encounter Details Date Type Department Care Team (Late Contact Info) Description 01/01/2023 Refill [facility] [address] [place] [address] Daija Parry DO [address] [place] [address] Social History Tobacco Use Types Packs/Day Years [...] Department Care Team (Late Contact Info) Description 03/31/2025 9:45 AM EST Office Visit [facility] [address] [place], [place] [phone] 07/08/2025 2:30 PM EDT Office Visit [facility] [address] [place] [address] Arielle Farr, OD [address] [place] [address] 09/11/2025 3:00 PM EDT Office Visit [facility] [address] [place] [address] Arielle Farr, OD [address] [place] [address] documented as of this encounter Goals Goal [...] documented as of this encounter Care Teams Ingot Supervisor Relationship Specialty Start Date End Date Daija Parry DO [address] [place] [id number] PCP - General Family Medicine 12/22/14 Ely Darling PharmD [address] [place] [phone] Pharmacist Internal Medicine 11/22/22 documented as of this encounter
--- OUTSIDE RECORDS SUMMARY | 2025-03-27 16:28 | XMS_ITS | Encounter Summary ---
Author Organization [employer] Address [address] [place] [address] 7[address] [place] [address] Care Team Providers Care Director Home Name Role Phone KianaDaija murguia Primary Care Provider [phone] Ely Darling PharmD Unavailable Reason for Visit * Reason Comments Med Refill Encounter Details Date Type Department Care Team (Late Contact Info) Description 12/16/2022 Refill [facility] [address] [place] [address] Daphney Roca MD [address] [place] [address] Mild persistent asthma, unspecified whether complicated Social [...] Description 03/31/2025 9:45 AM EST Office Visit [facility] [address] [place], [place] [phone] 07/08/2025 2:30 PM EDT Office Visit [facility] [address] [place], [place] [phone] Arielle Farr, OD [address] [place] [address] 09/11/2025 3:00 PM EDT Office Visit [facility] [address] [place] [address] Arielle Farr, OD [address] [place] [address] documented as of this encounter Goals Goal Patient Goal Type Associated Problems Recent Progress Patient-Stated? Author Blood Pressure < 140/90 Blood Pressure 138/100(01/27 12:35 PM EDT) No DelLopez moreno, PharmD Hemoglobin A1c < 7 Result Component 6.3( 10:13 AM EDT) No Dellogono Lopez, PharmD Record your blood sugar as directed Result Component No Robbin Darlingyssa, PharmD documented as of this encounter Visit Diagnoses Diagnosis Mild persistent asthma, unspecified whether complicated documented in this encounter Additional Health Concerns Assessment Noted Time PHQ-9 Depression Total Score: 24 023 11:12 AM EST documented as of this encounter Care Teams Director Home Relationship Specialty Start Date End Date Daija Parry DO [address] [place] [address] PCP - General Family Medicine 12/22/14 Puia, Ely, PharmD [address] [place] [address] Pharmacist Internal Medicine 11/22/22 documented as of this encounter
--- OUTSIDE RECORDS SUMMARY | 2025-03-27 16:28 | XMS_ITS | Clinical Summary ---
Author Organization [employer] Address [address] [place] [address] [address] [place] [address] Care Team Providers Care Immigration Consultant Name Role Phone Brinda Daija Primary Care Provider Ely Darling PharmD Unavailable [phone] Allergies Active Allergy Reactions Criticality Noted Date Comments Cefuroxime Hives High 07/15/2015 Medications * This document contains information received from the source organization and may not represent a complete record from that organization. pantoprazole (ProtoNix) 40 MG EC tablet Take 1 tablet by mouth 2 times daily. Active pancrelipase, Urf-Qtot-Lqcz, (Creon) 57184-93436 units capsule Take 2 capsules by mouth [...] noon, and at bedtime for anxiety. Active alosetron (Lotronex) 1 MG tablet Take 1 mg by mouth 2 times daily. Active Alcohol Swabs (Alcohol Prep) padsIndications :Type 2 diabetes mellitus without complication, without long-term current use of insulin ([facility]) Use one pad BID when checking blood glucose 100 each Active glucose blood (FREESTYLE LITE) test stripIndication s:Type 2 diabetes mellitus without complication, without long-term current use of insulin ([facility]) Use to monitor blood glucose twice daily 100 each Active TRUEplus Lancets 33G miscIndications :Type 2 diabetes mellitus without complication, without long-term current use of insulin ([facility]) Use to test blood sugar 2 time(s) daily 100 each Active Blood Glucose Monitoring Suppl (FreeStyle [place] Lite) w/Device kit Use to test blood sugar 3 times daily 1 kit Active Skin Protectants, Misc. (Minerin Creme) cream APPLY TOPICALLY TO DRY SKIN TWICE DAILY NEEDED 454 g 5 024 Active ondansetron (Zofran) 4 MG tablet TAKE 1 TABLET BY MOUTH THREE TIMES DAILY NEEDED FOR NAUSEA AND VOMITING Active Nystop 696463 UNIT/GM powder APPLY TOPICALLY TO THE AFFECTED AREA(S) 2 OR 3 TIMES DAILY Active pentosan polysulfate (Elmiron) 100 MG capsule Take 2 capsules (200 mg) by mouth 2 times daily. 120 capsule Active famotidine (Pepcid) 40 MG tablet Take 1 tablet (40 mg) by mouth at bedtime. 30 tablet 5 Active Trulicity 0.75 MG/0.5ML solution auto-injectorIn dications:Type 2 diabetes mellitus without complication, without long-term current use of insulin ([facility]) INJECT ONE PEN (=0.75MG) SUBCUTANEOUSLY ONCE A WEEK DIRECTED 2 mL 02/26/20 25 3:41 PM EST 025 Active D3 Super Strength 50 MCG (2000 UT) capsuleIndicati ons:Vitamin D deficiency TAKE 1 CAPSULE BY MOUTH EVERY MORNING 30 capsule 025 Active Diclofenac Sodium 1 % gelIndications: Chronic low back pain, unspecified back pain laterality, unspecified whether sciatica present Apply 2 g topically if needed in the morning, at noon, in the evening, and at bedtime (pain). 150 g 3 025 Active mineral oil-hydrophil petrolat ointment Topical [...] mouth 3 times daily. 270 capsule 3 02/26/20 25 3:40 PM EST 025 Active ibuprofen 800 MG tabletIndicatio ns:Pain [...] mouth Once per day. 30 tablet 11 02/26/20 25 3:41 PM EST 025 2025 Active hydroCHLOROthia zide (HYDRODiuril) 25 [...] EVERY MORNING BEFORE BREAKFAST 90 tablet 1 Active montelukast (Singulair) 10 MG tablet TAKE 1 TABLET BY MOUTH EVERY EVENING 90 tablet 1 Active atorvastatin (Lipitor) 10 MG tablet Take 1 tablet (10 mg) by mouth Once per day. 30 tablet 11 02/26/20 3:40 PM EST 2025 Active albuterol (2.5 MG/3ML) 0.083% nebulizer solutionIndicat ions:Mild persistent asthma with acute exacerbation Take 3 mL (2.5 mg) by nebulization every 4 (four) hours if needed for wheezing or shortness of breath. 75 mL 2 Active fluticasone furoate (Arnuity Ellipta) 200 MCG/ACT inhaler INHALE 1 PUFF BY MOUTH EVERY DAY AT THE SAME TIME RINSE MOUTH AFTER USING 30 each 02/26/20 3:41 PM EST Active furosemide (Lasix) 20 MG tablet TAKE 1 TABLET BY MOUTH EVERY DAY NEEDED FOR SWELLING 30 tablet 2 02/26/20 3:41 PM EST Active predniSONE (Deltasone) 10 MG tablet Take 6 tabs PO daily x 2 days then 5 tabs daily x 2 days then 4 tabs daily x 2 days then 3 tabs daily x 2 days then 2 tabs daily x 2 days then 1 tab daily x 2 days then 1/2 tab daily x 2 days 43 tablet Active azithromycin (Zithromax) 250 MG tablet Take 2 tabs PO daily x one day then take 1 tab PO daily x four days 6 tablet Active guaiFENesin (Mucinex) 600 MG 12 hr tablet Take 1 tablet (600 mg) by mouth if needed in the morning and at bedtime for cough or congestion. Do not crush, chew, or split. 30 tablet 2025 Active cetirizine (ZyrTEC) 10 MG tablet Take 1 tablet (10 mg) by mouth Once per day. 30 tablet 11 025 2025 Active fluticasone (Flonase) 50 MCG/ACT nasal spray Administer 2 sprays into each nostril Once per day. Shake gently. Before first use, prime pump. After use, clean tip and replace cap. 16 g 3 025 2025 Active losartan (Cozaar) 100 MG tabletIndicatio ns:Essential hypertension Take 1 tablet (100 mg) by mouth at bedtime. 90 tablet 3 Active ergocalciferol (Vitamin D2) 1.25 MG (28587 UT) capsule Take 1 capsule (1.25 mg) by mouth 1 (one) time per week. 12 capsule 02/26/20 25 3:41 PM EST Active levothyroxine (Synthroid, Levoxyl) 75 MCG tabletIndicatio ns:Hypothyroidi sm, unspecified type TAKE 1 TABLET BY MOUTH EVERY MORNING WITH 200 mcg 90 tablet 1 02/26/20 25 3:41 PM EST 025 Active Ventolin HFA 108 (90 Base) MCG/ACT inhalerIndicati ons:Mild persistent asthma, unspecified whether complicated INHALE 2 PUFFS BY MOUTH EVERY 4 HOURS NEEDED FOR WHEEZING OR SHORTNESS OF BREATH 18 g 2 025 Active traMADol (Ultram) 50 MG tabletIndicatio ns:Chronic bilateral low back pain with bilateral sciatica Take 1 tablet (50 mg) by mouth every 6 (six) hours if needed for severe pain for up to 28 days. Do not start before March 26, 2025. 112 tablet 025 2025 Active albuterol (Ventolin HFA) 108 (90 Base) MCG/ACT inhalerIndicati ons:Mild persistent asthma, unspecified whether complicated Inhale 2 puffs every 4 (four) hours if needed for shortness of breath or wheezing. 18 g 2 02/26/20 25 3:41 PM EST 025 2024 Discontinued traMADol (Ultram) 50 MG tabletIndicatio ns:Chronic bilateral low back pain with bilateral sciatica TAKE 1 TABLET BY MOUTH EVERY 6 HOURS NEEDED FOR SEVERE PAIN 112 tablet 025 2024 Discontinued(R eorder (will not trigger notification to Pharmacy)) traMADol (Ultram) 50 MG tabletIndicatio ns:Chronic bilateral low back pain with bilateral sciatica Take 1 tablet (50 mg) by mouth every 6 (six) hours if needed for severe pain. 112 tablet 02/27/20 5:59 PM EST 025 2024 Discontinued Active Problems Problem Noted Date Diagnosed Date Bereavement 07/10/2024 Long-term current use of opiate analgesic 2024 Overview (02/03/2025): Medication: Tramadol 50mg Q6H PRN Indication: lumbar spondylosis with myelopathy Last [employer] Agreement: 02/03/25 Tier: 2 (Q3mo [employer]) - eval 10/28/24 by PCP Assessment & Plan (02/03/2025 1:15 PM EDT): Timeline: - 09/02/24: Group Visit - pill count 2 short, utox as expected. - 09/30/24: Group visit - pill count 11 short (said left some at home), utox as expected - 10/28/24: Group visit - utox and pill count as expected - 12/02/24: Group visit - utox and pill count as expected - 02/03/25: Group visit - utox and pill count as expected Assessment & Plan (12/02/2024 1:09 PM EDT): [...] main strength. Pt currently has services with [facility] for psychiatry and is also in wait list for OP individual therapy. clinician engaged patient with active/reflective listening. Reviewed and assessed for risk, current stressors and protective factors using open-ended questions. clinician will provide follow-up BE for additional support. Provided [facility] contact information. Chronic, continuous use of opioids 01/01/2024 Overview (03/04/2024): Dx: Chronic Back Pain with Sciatica Rx: Tramadol 50mg Q6 hours Tier 2, visits every 3 months [employer] Agreement signed: 03/04/24 Additional considerations: Restrictive lung [...] disease 05/14/2023 Localized gingival recession, severe 05/14/2023 Fibromyalgia 05/31/2022 05/03/2023 Essential hypertension 05/26/2022 Type 2 diabetes mellitus 05/26/2022 Spondylosis, lumbar, with myelopathy 04/17/2022 Assessment & Plan (02/03/2025 1:15 PM EDT): -Good engagement and participation with Group Medical Visit model -Encouraged multifactorial approach to pain control including pharm and non- pharm modalities -pill count/utox as expected Assessment & Plan (12/02/2024 1:08 PM EDT): [...] including pharm and non- pharm modalities -See utility repairer regarding pill count/utox Assessment & Plan (09/02/2024 1:39 PM EDT): -Good engagement and participation with Group Medical Visit model -Encouraged multifactorial approach to pain control including pharm and non- pharm modalities -UTOX as expected, pill count 2 short. See utility repairer Assessment & Plan (06/03/2024 2:35 PM EST): [...] Mild persistent asthma 01/27/2015 BMI 50.0-59.9, adult ([facility]) 01/27/2015 Obstructive sleep apnea 01/27/2015 Overview (05/03/2023): Uses NIVV Peripheral venous insufficiency 01/27/2015 Major depression, recurrent, chronic 01/27/2015 Vitamin D deficiency 01/27/2015 Nephrolithiasis 01/27/2015 Resolved Problems Problem Noted Date Diagnosed Date Resolved Date Morbid obesity ([facility]) 07/12/202307/2023 Migraine 07/12/2023 07/12/2023 Missing teeth, acquired 05/14/202305/11 Dyspnea 05/03/2023 05/03/2023 07/12/2023 Proteinuria 01/04/2023 05/03/2023 01/22/2025 Patellofemoral arthralgia of right knee 02/21/2022 07/12/2023 Systolic hypertension 07/21/20212023 Essential hypertension 01/27/201505/26 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 Date Type Department Care Team Description 03/24/2025 Refill [facility] MEDICINE [address] [place], [place] [id number] Daija Parry, Chronic bilateral low back pain with bilateral sciatica 03/19/2025 Refill [facility] MEDICINE [address], [place] [phone] Daija Parry, DO Mild persistent asthma, unspecified whether complicated 03/12/2025 2:30 PM EST Office Visit [facility] OPTOMETRY [address] [place], [place] [phone] Yordan, Arielle, OD Diabetes type 2, no ocular involvement (HCC) (Primary Dx); Open angle with borderline findings, low risk 03/12/2025 Travel 03/09/2025 Telephone [facility] MED[facility]INE [address] [place] [address] Daija Parry DO Referral 02/26/2025 Refill [facility] [address] [facility] [place] [address] Daija Parry, Chronic bilateral low back pain with bilateral sciatica 02/20/2025 Refill [facility] MED[facility]INE [address] [place] [address] Daija Parry DO Hypothyroidism, unspecified type 02/20/2025 Refill [facility] MEDICINE [address] [place] [address] Daija Parry DO 02/16/2025 Telephone [facility] MEDICINE [address] [place] [address] Daija Parry DO 02/16/2025 Refill [facility] MEDICINE [address] [place] [address] Daija Parry DO Essential hypertension 02/03/2025 9:45 AM EDT Office Visit [facility] [address] [place] [address] Phalen, Chloé, BACTERIOLOGY RESEARCH ASSISTANT Spondylosis, lumbar, with myelopathy (Primary Dx); Long-term current use of opiate analgesic 02/03/2025 Telephone [facility] MEDICINE [address] [place] [address] Daija Parry DO NTTS 02/03/2025 Travel 01/27/2025 12:00 PM EDT Office Visit [facility] MEDICINE [address] [place] [address] Daija Parry DO Bronchitis (Primary Dx); Acute cough; Hypothyroidism, unspecified type 01/27/2025 Travel 01/27/2025 Refill [facility] MEDICINE [address] [place] [address] Daija Parry DO 01/26/2025 Telephone [facility] MEDICINE [address] [place] [address] Daija Parry DO Nurse Triage 01/24/2025 Refill [facility]S [address] [place] [address] Daija Parry DO 01/23/[address] [address] Daija Parry DO Chronic bilateral low back pain with bilateral sciatica 01/23/[address] [address] Daija Parry DO 01/21/2025 9:00 AM EDT Office Visit [address] [address] Daija Parry DO Type 2 diabetes mellitus without complication, without long-term current use of insulin (HCC) (Primary Dx); Essential hypertension; Other hyperlipidemia; Hypothyroidism, unspecified type; Major depression, recurrent, chronic (CMS/HCC); Chest pain, unspecified type; Mild persistent asthma with acute exacerbation; AISHWARYA (obstructive sleep apnea); Chronic gastroesophageal reflux disease; Chronic migraine; Chronic bilateral low back pain with bilateral sciatica; Fibromyalgia; Forgetfulness; Healthcare maintenance; Dietary counseling; Exercise counseling; Cough, unspecified type; Mild persistent asthma, unspecified whether complicated; Encounter for immunization; Encounter for vaccination; Screening mammogram for breast cancer 01/21/2025 Travel 01/21/[address] [address] Daija Parry DO 01/20/2025 Orders Only GENERIC EXTERNAL DATA DEPARTMENT Provider, Generic External Data 01/20/[address] [address] Daija Parry DO Durable Medical Equipment (L&C: Incontinence Supplies) 01/15/[address] [address] Daija Parry DO Chart Prep 01/13/2025 Patient Outreach [address] [address] Daija Parry DO Pre-visit Planning ((Unable to reach for PVP screening, LVM) to be completed in office ) 01/08/[address] [place] [address] Veronica Mcadams, RN Appointment Request 01/06/2025 Orders Only GENERIC EXTERNAL DATA DEPARTMENT Provider, Generic External Data from Last 3 Months Immunizations Immunization Administration [...] Sign Reading Time Taken Comments Blood Pressure 138/100 01/27/2025 12:35 PM EDT Pulse 83 01/27/2025 12:35 PM EDT Temperature 37.1 C (98.7 F) 01/27/2025 12:35 PM EDT Respiratory Rate 30 01/27/2025 12:35 PM EDT Oxygen Saturation 99% 01/27/2025 12:35 PM EDT Inhaled Oxygen Concentration - - Weight 132 kg (292 lb) 01/27/2025 12:35 PM EDT Height 154.9 cm (5' 1 ) 01/27/2025 12:35 PM EDT Body Mass Index 55.17 01/27/2025 12:35 PM EDT Plan of Treatment Upcoming Encounters Date Type Department Care Team (Late st Contact Info) Description 03/31/2025 9:45 AM EST Office Visit [facility] MEDICINE [address] [place] [address] 07/08/2025 2:30 PM EDT Office Visit [facility] OPTOMETRY [address] [place] [address] Tyler Farrn, OD [address] [place] [address] 09/11/2025 3:00 PM EDT Office Visit [facility] OPTOMETRY [address] [place] [address] Tyler Farrn, OD [address] [place] [address] Health Maintenance Due Date Last Done Comments CT Colonography 1973 FIT DNA/Cologuard 1975 FIT 1975 FOBT 1975 Sigmoidoscopy 1975 Disability Screening 1975 Diabetes: Foot Exam 06/27/1983 Alcohol/Substance Use Screening 1985 Family Planning (PISQ) 1988 HPV/Cotest 06/27/2003 Colonoscopy 08/15/2022 08/15/2012 Colorectal Cancer Screening 08/15/2022 RSV Patients and Patients Aged 60 years or older (1 - Risk 50-74 years 1-dose series) 06/27/2023 Zoster Vaccines (1 of 2) 06/27/2023 Dental Oral Exam 11/13/2023 05/14/2023, 07/15/2015 Dental Prophylaxis 11/13/2023 05/14/2023 Cervical Cancer Screening 11/25/2023 Pap Smear 11/25/2023 11/24/2020, 11/22/2020 Dental X-Ray: Bitewings 05/15/2024 05/14/2023, 07/14 SDOH Screening 07/11/2024 07/12/2023 Depression Monitoring 01/09/2025 07/10/2024, 025 Mammogram 02/13/2025 02/14/2024, 10/08, 10/29/2020, Additional history exists Diabetes: Hemoglobin A1C 07/22/2025 025, 01/21/2025, 07/15/2024, Additional history exists Diabetes: Urine Protein Screening 01/21/2026 01/21/2025, 07/15/2024, 07/12/2023, Additional history exists Lipid Panel 01/21/2026 01/21/2025, 04/0 11/2024, 08/01/2023, Additional history exists Tobacco Screening 01/27/2026 01/27/2025 Dental X-Ray: Full Mouth 05/15/2026 024, 08/18/2016, 07/15/2015 Eye Exam 09/09/2026 09/09/2024, 06/0 06/2024, 09/09/2024, Additional history exists DTaP/Tdap/Td Vaccines (9 - Td or Tdap) 01/21/2035 01/21/2025, 09/22/2014, 02/06/2012, Additional history exists IPV Vaccines Completed 04/25/1988, 09/07, 11/24/1975, Additional [...] directed Result Component No Ely Darling, PharmD Help patients manage their type 2 diabetes Care Plan Help patients manage their type 2 diabetes No Daija Ortiz, PharmMahin Weekly blood pressure task Care Plan Weekly blood pressure task No Daija Ortiz, PharmD Help patients manage their type 2 diabetes Care Plan Help patients manage their type 2 diabetes No Daija Ortiz, PharmD Patient has chronic kidney disease Care Plan Patient has chronic kidney disease No Daija Ortiz, PharmD Weekly blood pressure task Care Plan Weekly blood pressure task No Daija Ortiz, PharmD Patient has chronic kidney disease Care Plan Patient has chronic kidney disease No Daija Ortiz, PharmD Weekly blood pressure task Care Plan Weekly blood pressure task No Daija Ortiz, PharmD Weekly blood pressure task Care Plan Weekly blood pressure task No Daija Ortiz, PharmD Patient has chronic kidney disease Care Plan Patient has chronic kidney disease No Daija Ortiz, PharmD Patient has chronic kidney disease Care Plan Patient has chronic kidney disease No Daija Ortiz, PharmD Weekly blood pressure task Care Plan Weekly blood pressure task No Jef Andrews Weekly blood pressure task Care Plan Weekly blood pressure task No Jef Andrews Patient has chronic kidney disease Care Plan Patient has chronic kidney disease No Jef Andrews Patient has chronic kidney disease Care Plan Patient has chronic kidney disease No Jef Andrews Weekly blood pressure task Care Plan Weekly blood pressure task No Nathaniel Mederos Weekly blood pressure task Care Plan Weekly blood pressure task No Gatito Nathaniel Patient has chronic kidney disease Care Plan Patient has chronic kidney disease No Mederos Nathaniel Patient has chronic kidney disease Care Plan Patient has chronic kidney disease No Mederos, Nathaniel Weekly blood pressure task Care Plan Weekly blood pressure task No Yordan, Arielle, OD Weekly blood pressure task Care Plan Weekly blood pressure task No Yordan, Arielle, OD Patient has chronic kidney disease Care Plan Patient has chronic kidney disease No Yordan, Arielle, OD Patient has chronic kidney disease Care Plan Patient has chronic kidney disease No Yordan, Arielle, OD Weekly blood pressure task Care Plan Weekly blood pressure task No Lakesha Graham RN Weekly blood pressure task Care Plan Weekly blood pressure task No Lakesha Graham RN Patient has chronic kidney disease Care Plan Patient has chronic kidney disease No Lakesha Graham RN Patient has chronic kidney disease Care Plan Patient has chronic kidney disease No Lakesha Graham RN Weekly blood pressure task Care Plan Weekly blood pressure task No Lakesha Graham RN Weekly blood pressure task Care Plan Weekly blood pressure task No Lakesha Graham RN Patient has chronic kidney disease Care Plan Patient has chronic kidney disease No Lakesha Graham RN Patient has chronic kidney disease Care Plan Patient has chronic kidney disease No Lakesha Graham RN Procedures Procedure Name Priority Date/Time Associated Diagnosis Comments AUTOMATED VISUAL FIELD, EXTENDED - OU - BOTH EYES Routine 03/12/2025 2:30 PM EST Open angle with borderline findings, low risk POCT BENITO-14 URINE DRUG SCREEN Routine 02/03/2025 10:18 AM EDT Spondylosis, lumbar, with myelopathy Long-term current use of opiate analgesic XR CHEST 2 VIEWS STAT 01/27/2025 3:00 PM EDT Acute cough POCT COVID-19 AG PRINCE ID NOW Routine 01/27/2025 12:42 PM EDT Acute cough POCT INFLUENZA B Routine 01/27/2025 12:4 2 PM EDT Acute cough POCT INFLUENZA A Routine 01/27/2025 12:4 2 PM EDT Acute cough ALBUMIN, RANDOM URINE W/CREATININE Routine 01/21/2025 10:13 AM EDT Type 2 diabetes mellitus without complication, without long-term current use of insulin (HCC) CBC Routine 01/21/2025 10:13 AM EDT Type 2 diabetes mellitus without complication, without long-term current use of insulin (HCC) BASIC METABOLIC PANEL Routine 01/21/2025 10:13 AM EDT Type 2 diabetes mellitus without complication, without long-term current use of insulin (HCC) HEMOGLOBIN A1C Routine 01/21/2025 10:13 AM EDT Type 2 diabetes mellitus without complication, without long-term current use of insulin (HCC) HEPATIC FUNCTION PANEL Routine 10:13 AM EDT Type 2 diabetes mellitus without complication, without long-term current use of insulin (HCC) TSH Routine 01/21/2025 10:13 AM EDT Type 2 diabetes mellitus without complication, without long-term current use of insulin (HCC) LIPID PANEL, STANDARD Routine 01/21/2025 10:13 AM EDT Type 2 diabetes mellitus without complication, without long-term current use of insulin (HCC) VITAMIN D,25-OH,TOTAL,IA Routine 01/21/2025 10:13 AM EDT Type 2 diabetes mellitus without complication, without long-term current use of insulin (HCC) T4, FREE Routine 01/21/2025 10:13 AM EDT Type 2 [...] QL, URINE Routine 01/06/2025 9:00 AM EDT HEPATITIS C AB W/REFL TO HCV RNA, [...] Recently Relevant to Health Maintenance Results * Automated Visual Field, Extended - OU - Both Eyes (03/12/2025 2:30 PM EST) Narrative Arielle Farr, OD - 03/27/2025 2:33 PM EST Right Eye Threshold was 30-2. Strategy was TOP. Reliability was good. Progression has no prior data. Findings include non-specific defects, inferior nasal step defect, paracentral scotoma. Left Eye Findings include non-specific defects. Notes VISUAL FIELD INTERPRETATION Visual Field Interpretation Test Details: Octopus G P Pulsar / 200 / TOP Reliability Indices: False positive errors OD: 2/8 OS: 1/7 False negative errors OD: 1/8 OS: 0/7 Statistical Indices: MS [src]: OD: 18.3 OS: 20.8 MD [< 2.0 src]: OD: 3.8 OS: 1.3 sLV [< 2.5 src]: OD: 3.1 OS: 2.4 Impression: Reason for testing: Open angle glaucoma suspicion both eyes Test Reliability: Borderline reliability in the right eye due to false positives, good reliability in the left eye due to low false negatives/positives Impression: Right eye: inferior field defects most significant in the inferonasal quadrant Left eye: superior defects and inferotemporal defects present Progression: No other tests available for comparison Management Plan: Patient educated on findings. No treatment indicated today. Will have her return for to repeat visual field testing to see if the defects found today are repeatable. Arielle Farr OD OPHTH VISUAL FIELD Final Resu lt * POCT BENITO-14 Urine Drug Screen (02/03/2025 10:18 AM EDT) THC Negative Negative Cocaine Screen, Urine Negative [...] obtained by clean catch procedure / Unknown 02/03/2025 10:18 AM EDT Narrative Sandie Burnett RN - 02/03/2025 10:18 AM EDT .UTOX cup Lot#[id number], Exp. 01/13/26 Internal Pass Control Chloé Wilson BACTERIOLOGY RESEARCH ASSISTANT POINT OF CARE TEST ENTER/EDIT ORDERABLES Final Result * XR Chest 2 Views (01/27/2025 3:00 PM EDT) Anatomical Region Laterality Modality Chest Radiographic Nidhi ging 01/27/2025 3:00 PM EDT Narrative 01/27/2025 3:11 PM EDT [address] [address] XRay Report Signed Patient: Shereen Cuellar MR#: [id number] : 1975 Acct:[id number] Age/Sex: 49 / F ADM Date: 01/27/25 Loc: .[facility] Attending Dr: Daija Parry DO Ordering Physician: Daija Parry DO Date of Service: 01/27/25 Procedure(s): XR chest 2V Accession Number(s): [id number] cc: Daija Parry DO Reason for Exam: worsening productive cough and SOB EXAMINATION: XR CHEST CLINICAL INFORMATION: worsening productive cough and SOB COMPARISON: June 28, 2023 TECHNIQUE: 2 views of the chest were obtained. FINDINGS: A suzie pin projects over the left upper mediastinum on the frontal view. Heart size is normal. Lungs are clear. No pleural effusion is evident. Anterior osteophytes are present in the lower thoracic spine. XR/XR chest 2V IMPRESSION: No acute disease Electronically signed by: Bebeto Melendez MD 01/27/2025 03:08 PM EDT RP Dictated By: Bebeto Melendez MD Signed By: <Electronically signed by Bebeto Melendez MD in OV> 01/27/25 1508 DD/ 1500 TD/TT: 01/27/25 1505 Casting Sorter: Procedure Note Donotuseinterpreter, Image - 01/27/2025 [place] [address] XRay Report Signed Patient: Kira Cuellar#: [id number] : 1975Acct:[id number] Age/Sex: 49 / FADM Date: 01/27/25 Loc: HO.HHCX Attending Dr: Daija Parry DO Ordering Physician: Daija Parry DO Date of Service: 01/27/25 Procedure(s): XR chest 2V Accession Number(s): [id number] cc: Daija Parry DO Reason for Exam: worsening productive cough and SOB EXAMINATION: XR CHEST CLINICAL INFORMATION: worsening productive cough and SOB COMPARISON: June 28, 2023 TECHNIQUE: 2 views of the chest were obtained. FINDINGS: A suzie pin projects over the left upper mediastinum on the frontal view. Heart size is normal. Lungs are clear. No pleural effusion is evident. Anterior osteophytes are present in the lower thoracic spine. XR/XR chest 2V IMPRESSION: No acute disease Electronically signed by: Bebeto Melendez MD 01/27/2025 03:08 PM EDT RP Dictated By: Bebeto Melendez MD Signed By: <Electronically signed by Bebeto Melendez MD in OV> 01/27/25 1508 DD/ 1500 TD/TT: 01/27/25 1505 Casting Sorter: Daija Parry DO IMG XR PROCEDURES Final Resu lt * POCT Rapid Covid-19 PRINCE ID NOW (01/27/2025 12:42 PM EDT) Only the most recent of2 resultswithin the time period is included. [facility] Coronavirus Antigen PCR Negative Negative, Indeterminate, None Detected, Invalid, Specimen unsatisfactory for evaluation, Weakly Positive, 2+ Swab 01/27/2025 12:4 2 PM EDT Daija Parry DO POINT OF CARE TEST ENTER/KATHY T ORDERABLES Final Result * POCT Rapid Influenza B OSOM (01/27/2025 12:42 PM EDT) [facility] Rapid Influenza B Ag Negative Negative, Indeterminate Swab 01/27/2025 12:4 2 PM EDT Daija Parry DO POINT OF CARE TEST ENTER/KATHY T ORDERABLES Final Result * POCT Rapid Influenza A OSOM (01/27/2025 12:42 PM EDT) [facility] Rapid Influenza A Ag Negative Negative, Indeterminate Swab Nasopharyngeal structure / Unknown 01/27/2025 12:42 PM EDT Daija Parry DO POINT OF CARE TEST ENTER/KATHY T ORDERABLES Final Result * (ABNORMAL) Vitamin D, 25-Hydroxy, Total, Immunoassay (01/21/2025 10:13 AM EDT) [facility] Vitamin D 25-OH Total 16.3(L) >30 ng/mL [facility] Comment: Health Based Reference Values*< 20 ng/mL [id number] ng/mL Insufficient> 30 ng/mL Sufficient*Rosa HOYOS. N Engl J Med. 2007;357:266-280There is [...] Vitamin D results fromdifferent laboratories and methodologies. Published datademonstrated that results from patients undergoinghemodialysis may show a negative bias when tested withvarious automated 25-OH vitamin D assays when compared toLC-MS/MS.When testing samples from patients whose predominant form ofVitamin D is Vitamin D2, such as patients receiving VitaminD2 supplementation, results that are subtherapeutic shouldbe confirmed with another method such as LC-MS/MS. Blood Venous blood specimen / Unknown 01/21/2025 10:13 AM EDT 01/21/2025 11:14 AM EDT Daija Parry DO LAB BLOOD ORDERABLES Final R esult [facility] [address] [place] [phone] * Albumin, Random Urine W/Creatinine (01/21/2025 10:13 AM EDT) Creatinine, Urine 248.19 mg/dL [facility] Microalbumin Urine 28.0 mg/L [facility] Microalbum Creatinine Ratio Ur 11.2 <30 ug/mg cr [facility] Comment:Albumin/Creatinine R atio Reference Ranges: Normal: < 30 ug/mg creatinine Microalbuminuria: 30 - 300 ug/mg creatinineClinical Albuminuria: > 300 ug/mg creatinine Urine (Urine, Random) 01/21/2025 10:13 AM EDT 01/21/2025 11:04 AM EDT Daija Parry DO LAB URINE ORDERABLES Final R esult [facility] [address] [place] [phone] * (ABNORMAL) CBC (01/21/2025 10:13 AM EDT) White Blood Count 12.0(H) 4.8 - 10.8 X10*3/uL [facility] Red Blood Count 4.89 4.20 - 5.50 X10*6/uL [facility] Hemoglobin 14.7 12.0 - 16.0 g/dl [facility] Hematocrit 43.6 37.0 - 47.0 % [facility] Mean Corpuscular Volume 89.2 80.0 - 98.0 fL [facility] Mean Corpuscular Hemoglobin 30.1 27.0 - 33.0 pg [facility] Mean Corpuscular HGB Conc 33.7 31.0 - 35.0 g/dl [facility] Red Cell Distribution Width 12.7 11.0 - 16.0 % [facility] Platelet Count 284 160 - 400 X10*3/uL [facility] Mean Platelet Volume 9.5 9.4 - 12.3 fL [facility] NRBC Pct Auto 0.0 0.0 - 0.2 /100WBC [facility] NRBC Abs Auto 0.000 0.0 - 0.012 X10*3/uL [facility] Blood Venous blood specimen / Unknown 01/21/2025 10:13 AM EDT 01/21/2025 11:14 AM EDT us Daija Parry DO LAB BLOOD ORDERABLES Final R esult [facility] [address] [place] [phone] * (ABNORMAL) TSH (01/21/2025 10:13 AM EDT) Thyroid Stimulating Hormone 53.20(H) 0.32 - 4.0 uIU/mL [facility] Comment:Note: A sustained TS H level above 2.5 uIU/mL may warrant further investigation. TSH 3rd Generation ([facility]) Blood Venous blood specimen / Unknown 01/21/2025 10:13 AM EDT 01/21/2025 11:14 AM EDT Daija Parry LAB BLOOD ORDERABLES Final R esult Performing Organization Address City/[facility] Co de Phone Number [facility] [address] [place] [phone] * (ABNORMAL) T4, Free (01/21/2025 10:13 AM EDT) Free T4 (Free Thyroxine) 0.64(L) 0.71 - 1.85 ng/dL [facility] Blood Venous blood specimen / Unknown 01/21/2025 10:13 AM EDT 01/21/2025 11:14 AM EDT Daija Parry LAB BLOOD ORDERABLES Final R esult Performing Organization Address [facility] de Phone Number [facility] [address] [place] [phone] * (ABNORMAL) Hemoglobin A1c (01/21/2025 10:13 AM EDT) Hemoglobin A1c 6.3(H) <6.0 % [facility] Comment:Hemoglobin A1C Refer ence Range Adults: 4.8 - 6.0 % Non diabetic: < 6.0 % Goal: < 7.0 %Additional Action Suggested: > 8.0 %Note: Hemoglobin A1c results are invalid for patients with abnormal amounts of HbF. Blood transfusions may impact the HbA1c concentration in the patient sample. Estimated Average Glucose 134 mg/dL [facility] Comment:eAG = Estimated ave rage glucose which is %A1C expressed asaverage glucose, using the formula of the Q8P-MfvxeukYcyucyf Glucose study (ADAG), Diabetes Care, Vol.31,#8,2007 Blood Venous blood specimen / Unknown 01/21/2025 10:13 AM EDT 01/21/2025 11:14 AM EDT Daija Brinda DO LAB BLOOD ORDERABLES Final R esult Performing Organization Address City/[facility] Co de Phone Number [facility] [address] [place] [phone] * Hepatic Function Panel (01/21/2025 10:13 AM EDT) Bilirubin, Total 0.5 0.0 - 1.0 mg/dL [facility] Bilirubin, Direct 0.2 0.0 - 0.5 mg/dL [facility] Aspartate Amino Transferase 22 5 - 31 U/L [facility] Alanine Aminotransferase 21 0 - 31 U/L [facility] Total Protein 7.8 6.5 - 8.0 g/dL [facility] Albumin Level 4.5 3.5 - 5.0 g/dL [facility] Alkaline Phosphatase 71 39 - 117 U/L [facility] Blood Venous blood specimen / Unknown 01/21/2025 10:13 AM EDT 01/21/2025 11:14 AM EDT us Daija Parry DO LAB BLOOD ORDERABLES Final R esult Performing Organization Address City/[facility]/ZIP Co de Phone Number [facility] [address] [place] [phone] * (ABNORMAL) Lipid Panel, Standard (01/21/2025 10:13 AM EDT) Triglycerides 165(H) <150 mg/dL [facility] Comment:Desirable Triglyceri de: less than 150 mg/dLBorderline High Triglyceride 150-199 mg/dLHigh Triglyceride: 200-499 mg/dLVery High Triglyceride: greater than or equal to 5OO mg/dL Cholesterol 187 <200 mg/dL [facility] Comment:Desirable Cholestero l: less than 200 mg/dLBorderline High Cholesterol: 200-239 mg/dLHigh Cholesterol: greater than 239 mg/dL LDL Cholesterol Calculated 105(H) <100 mg/dL [facility] Comment:Desirable LDL: less than 100 mg/dLNear Optimal/Above Optimal LDL: 110- 129 mg/dLBorderline High LDL: 130-159 mg/dLHigh LDL: 160-189 mg/dLVery High LDL: greater than or equal to 190 mg/dL HDL Cholesterol 49 >40 mg/dL [facility] Comment:Desirable HDL: great er than 40 mg/dL Note: This HDL assay may give artificially low results in patients with liver disease. Blood Venous blood specimen / Unknown 01/21/2025 10:13 AM EDT 01/21/2025 11:14 AM EDT us Daija Parry DO LAB BLOOD ORDERABLES Final R esult [facility] [address] [place] [phone] * (ABNORMAL) Basic Metabolic Panel (01/21/2025 10:13 AM EDT) Only the most recent of2 resultswithin the time period is included. Sodium 139 135 - 145 mmol/L [facility] Potassium 3.7 3.3 - 5.1 mmol/L [facility] Chloride 105 96 - 108 mmol/L [facility] Carbon Dioxide 27 22 - 29 mmol/L [facility] Anion Gap 11(L) 12 - 20 [facility] Urea Nitrogen (BUN) 12 9 - 16 mg/dL [facility] Creatinine, Serum 0.76 0.5 - 1.4 mg/dL [facility] Estimated Glomerular Filt Rate >60 [facility] Comment:Chronic Kidney Disea se: Estimated GFR < 60 mL/min/[id number] Kidney Disease: Estimated GFR < 15 mL/min/1.73m2 Glucose 125(H) 60 - 115 mg/dL [facility] Calcium 9.3 8.4 - 10.2 mg/dL [facility] Blood Venous blood specimen / Unknown 01/21/2025 10:13 AM EDT 01/21/2025 11:14 AM EDT Daija Parry DO LAB BLOOD ORDERABLES Final R esult Performing Organization Address [facility]/ZIP Co de Phone Number [facility] [address] [place] [phone] * POCT Rapid Influenza B PRINCE ID NOW (01/21/2025 9:40 AM EDT) [facility] Influenza B Negative Negative, Indeterminate [facility] QC Media Lot # [id number] [facility] Lot# Expiration Date [facility] Swab 01/21/2025 9:40 AM EDT Daija Parry DO POINT OF CARE TEST ENTER/KATHY T ORDERABLES Final Result Performing Organization Address [facility] Co de Phone Number [facility] [address] [place] [phone] * POCT Rapid Influenza A PRINCE ID NOW (01/21/2025 9:39 AM EDT) [facility] Influenza A Negative Negative, Indeterminate [facility] QC Media Lot # [id number] [facility] Lot# Expiration Date [facility] Swab 01/21/2025 9:39 AM EDT Daija Parry DO POINT OF CARE TEST ENTER/KATHY T ORDERABLES Final Result Performing Organization Address [facility] Co de Phone Number [facility] [address] [place] [phone] [phone] * (ABNORMAL) POCT Hgb A1c (01/21/2025 9:00 AM EDT) Hemoglobin A1C 6.3(A) 4.0 - 5.7 % [facility] Media Lot # [id number] Lot# Expiration Date , Blood 01/21/2025 9:00 AM EDT Daija Brinda DO POINT OF CARE TEST ENTER/KATHY T ORDERABLES Final Result * POCT Glucose (01/21/2025 9:00 AM EDT) Glucose Blood, POC 156 60 - 200 mg/dL [facility] Lot # [id number] Lot# Expiration Date 3,026 Blood Capillary blood specimen / Unknown 01/21/2025 9:00 AM EDT Daija Parry DO POINT OF CARE TEST ENTER/KATHY T ORDERABLES Final Result * Culture, Urine, Routine (01/06/2025 9:58 AM EDT) Urine Urine specimen from urinary conduit / Unknown 01/06/2025 9:58 AM EDT 01/06/2025 10:02 AM EDT Comment:Urine Cath Narrative [facility] - 01/09/2025 2:56 PM EDT Urine Culture Report Result Urine Culture Consult Microbiology within 7 days if Urine Culture more definitive studies are clinically indicated. Streptococcus viridans group Quant < 10,000 cfu/mL Susc N/A Susceptibility not routinely performed on this isolate. Specimen Source: Urine Catheterized Generic External Data Provider LAB MICROBIOLOGY - GENERAL ORDERABLES Final Result [facility] [address] [place] [phone] * (ABNORMAL) Glucose, Whole Blood (01/06/2025 9:30 AM EDT) Glucose, Whole Blood 152(H) 60 - 115 mg/dL [facility] Comment:METER #: [id number] 01/06/2025 9:30 AM EDT 01/06/2025 9:33 AM EDT us Generic External Data Provider LAB BLOOD ORDERAB LES Final Result Performing Organization Address [facility] de Phone Number [facility] [address] [place] [phone] * HCG, Qualitative, Urine (01/06/2025 9:00 AM EDT) Pathologist [facility] Urine NEGATIVE NEGATIVE [facility] Comment:This test was develo ped to detect early . Falsenegative results may occur after the 5th - 7th week ofpregnancy when using this test method. If clinicallyindicated, consider a serum hCG. 01/06/2025 9:00 AM EDT 01/06/2025 9:07 AM EDT us Generic External Data Provider LAB URINE ORDERAB LES Final Result Performing Organization Address [facility] de Phone Number [facility] [address] [place] [phone] * Hepatitis C Antibody with Reflex to HCV, RNA, Quantitative, Real-Time PCR (07/15/2024 2:18 PM EDT) [facility] Hepatitis C Antibody Nonreactive Nonreactive [facility] Comment:Antibodies to HCV no t detected; does not exclude early acuteHCV infection. Blood Venous blood specimen / Unknown 07/15/2024 2:18 PM EDT 07/15/2024 2:18 PM EDT us Daija Parry DO LAB BLOOD ORDERABLES Final R esult Performing Organization Address [facility] Co de Phone Number [facility] [address] [place] [phone] * HIV-1/2 Antigen and Antibodies, Fourth Generation, with Reflexes (07/15/2024 2:18 PM EDT) [facility] HIV AB/AG Nonreactive Nonreactive [facility] Comment:HIV-1 p24 Ag and/or HIV-1/HIV-2 Ab not detected.A test result that is nonreactive does not exclude thepossibility of exposure to or infection with HIV-1 and/orHIV-2. Nonreactive results in this assay for individualswith prior exposure to HIV-1 and/or HIV-2 may be due toantigen and antibody levels that are below the limit ofdetection of this assay.The [employer] HIV Ag/Ab Combo assay result andsupplemental assay results should be interpreted inconjunction with the patient's clinical presentation,history and other laboratory results. If the results areinconsistent with clinical evidence, additional testing issuggested to confirm the result. Blood Venous blood specimen / Unknown 07/15/2024 2:18 PM EDT 07/15/2024 2:18 PM EDT Daija Parry DO LAB BLOOD ORDERABLES Final R esult [facility] [address] [place] [phone] * BI Mammogram Screening Tomosynthesis Bilateral (02/14/2024 12:07 PM EST) Anatomical Region Laterality Modality Breast Bilateral Mammography 02/14/2024 12:0 7 PM EST Narrative 02/22/2024 4:11 PM EST [facility] [address] [place] [address] Mammography Report Signed Patient: Shereen Cuellar MR#: [id number] : 1975 Acct:[id number] Age/Sex: 48 / F ADM Date: 02/14/24 Loc: MAMMO Attending Dr: Daija Parry DO Ordering Physician: Daija Parry DO Results: 1N egative Date of Service: 02/14/24 Follow Up: 1 Year From Orig inal Mammogram Procedure(s): MM tomosynthesis screening BI Accession Number(s): [id number] cc: Jurcsak,Daija A DO EXAMINATION: MM SCREENING DIGITAL BREAST TOMOSYNTHESIS, [...] by: Sushila Moon DO 02/22/2024 04:08 PM [facility] Dictated By: Sushila Moon DO Signed By: <Electronically signed by Sushila Moon DO in OV> 02/22/24 1608 DD/ 1207 TD/TT: 02/14/24 1223 Casting Sorter: Procedure Note Donotuseinterpreter, Image - 02/22/2024 [facility] [address] [place] [address] Mammography Report Signed Patient: Kira Cuellar#: [id number] : 1975Acct:[id number] Age/Sex: 48 / FADM Date: 02/14/24 Loc: HO.MAMMO Attending Dr: Daija Parry DO Ordering Physician: Daija Parryults: 1N egative Date of Service: 02/14/24Follow Up: 1 Year From Orig inal Mammogram Procedure(s): MM tomosynthesis screening BI Accession Number(s): [id number] cc: Daija Parry DO EXAMINATION: MM SCREENING [...] 02/22/24 1608 DD/ 1207 TD/TT: 02/14/24 1223 Casting Sorter: us Daija Parry DO IMG BI PROCEDURES Final Resu lt * THINPREP TIS PAP (11/24/2020 6:42 AM EDT) Clinical Information: None given [employer] [facility] COMMENT SEE COMMENT [facility]OUNDAT[facility] ON [...] INCORRECT, PLEASE CONTACT CLIENT SERVICES. PHONE NUMBER: Comment: This Pap test has been evaluated with computer assisted technology. [facility] Urologist Md : SEE COMMENT [facility] Comment: ED, CT(ASCP) CT screening location: [place] [address] Interpretation/R esult: Negative for intraepithelial lesion or malignancy. [facility] LMP: NONE GIVEN [facility] N [facility] SYSTEM PATHOLOGIST: [facility] Comment: Sera Guzman M.D. Direct , Board Certified in Anatomic and Clinical Pathology and Cytopathology (electronic signature) Consulting Pathologist [facility] [address] [place] [phone] Prev. BX: NONE GIVEN FOUNDATIO N LAB [...] [facility] [address] [place] [address], * Colonoscopy (08/15/2012 8:08 AM EDT) us Historical Provider HEALTH MAINTENANCE Final Result from Last 3 Months or Most Recently Relevant to Health Maintenance Additional Health Concerns Active Problems Noted Date Diagnosed Date Help patients manage their type 2 diabetes 02/20 Weekly blood pressure task 02/20/2025 Help patients [...] 03/09/2025 Patient has chronic kidney disease 03/09/2025 Weekly blood pressure task 03/12/2025 Weekly blood pressure task 03/12/2025 Patient has chronic kidney disease 03/12/2025 Patient has chronic kidney disease 03/12/2025 Weekly blood pressure task 03/18/2025 Weekly blood pressure task 03/18/2025 Patient has chronic kidney disease 03/18/2025 Patient has chronic kidney disease 03/18/2025 Weekly blood pressure task 03/24/2025 Weekly blood pressure task 03/24/2025 Patient has chronic kidney disease 03/24/2025 Patient has chronic kidney disease 03/24/2025 Insurance [facility] [address] [place] [address] [facility] Care Teams Immigration Consultant Relationship Specialty Start Date End Date Daija Parry DO [address] [place] [address] PCP - General Family Medicine 12/22/14 Ely Darling PharmD [address] [place] [address] Pharmacist Internal Medicine 11/22/22
--- OUTSIDE RECORDS SUMMARY | 2025-03-27 16:28 | XMS_ITS | Encounter Summary ---
Author Organization [employer] Address [address] [place] [address] [address] [place] [address] Care Team Providers Care Blocker And Cutter Contact Lens Name Role Phone Daija Parry DO Primary Care Provider Ely Darling PharmD Unavailable Reason for Visit * Reason Onset Date Comments Appointment Request 10/19/2023 Encounter Details Date Type Department Care Team ([facility] st Contact Info) Description 10/19/2023 Telephone [facility] [address] [place], [place] [phone] Daija Parry DO [address] [place] [address] Appointment Request Social History Tobacco Use Types [...] Description 03/31/2025 9:45 AM EST Office Visit [facility] [address] [place] [address] 07/08/2025 2:30 PM EDT Office Visit [facility] [address] [place] [phone] Arielle Farr, OD [address] [place] [address] 09/11/2025 3:00 PM EDT Office Visit [facility] [address] [place] [address] Arielle Farr, OD [address] [place] [address] documented as of this encounter Goals Goal [...] documented as of this encounter Care Teams Blocker And Cutter Contact Lens Relationship Specialty Start Date End Date Daija Parry DO [address] [place] [address] PCP - General Family Medicine 12/22/14 Ely Darling PharmD [address] [place] [address] Pharmacist Internal Medicine 11/22/22 documented as of this encounter
--- OUTSIDE RECORDS SUMMARY | 2025-03-27 16:28 | XMS_ITS | Encounter Summary ---
Author Organization [employer] Address [address] [place] [address] [address] [place] [address] Care Team Providers Care Studio Set Up Worker Name Role Phone Daija Parry DO Primary Care Provider Ely Darling PharmD Unavailable Reason for Visit * Reason Comments Med Refill Encounter Details Date Type Department Care Team ([facility] st Contact Info) Description 03/24/2025 Refill [facility] MED[facility]INE [address] [place] [phone] Daija Parry DO [address] [place] [address] Chronic bilateral low back pain with bilateral [...] Description 03/31/2025 9:45 AM EST Office Visit [facility] MEDICINE [address] [place] [address] 07/08/2025 2:30 PM EDT Office Visit [facility] OPTOMETRY [address] [place] [address] Arielle Farr, OD [address] [place] [address] 09/11/2025 3:00 PM EDT Office Visit [facility] OPTOM[facility]RY [address] [place] [address] Arielle Farr, OD [address] [place] [address] documented as of this encounter Goals Goal [...] manage their type 2 diabetes No Daija Ortiz PharmD Weekly blood pressure task Care Plan Weekly blood pressure task No Daija Ortiz, PharmD Help patients manage their type 2 diabetes Care Plan Help patients manage their type 2 diabetes No Daija Ortiz, PharmD Patient has chronic kidney disease Care Plan Patient has chronic kidney disease No Daija Ortiz PharmD Weekly blood pressure task Care Plan [...] Plan Patient has chronic kidney disease No Gatito Nathaniel Weekly blood pressure task Care Plan [...] Care Plan Patient has chronic kidney disease Lakesha Patrick RN Patient has chronic kidney disease Care Plan Patient has chronic kidney disease Lakesha Patrick RN Weekly blood pressure task Care Plan Weekly blood pressure task No Lakesha Graham RN Weekly blood pressure task Care Plan Weekly blood pressure task No Lakesha Graham RN Patient has chronic kidney disease Care Plan Patient has chronic kidney disease No Lakesha rGaham RN Patient has chronic kidney disease Care Plan Patient has chronic kidney disease No Lakesha Graham RN documented as of this encounter Visit Diagnoses Diagnosis Chronic bilateral low back pain with bilateral sciatica documented in this encounter Additional Health Concerns Active [...] 03/24/2025 Patient has chronic kidney disease 03/24/2025 Assessment Noted Time PHQ-9 Depression Total Score: 22 04/2 025 3:28 PM EDT documented as of this encounter Care Teams Studio Set Up Worker Relationship Specialty Start Date End Date Daija Parry DO [address] [place] [address] PCP - General Family Medicine 12/22/14 Ely Darling, Ashish [address] [place] [address] Pharmacist Internal Medicine 11/22/22 documented as of this encounter
--- OUTSIDE RECORDS SUMMARY | 2025-03-27 16:28 | XMS_ITS | Encounter Summary ---
Author Organization [employer] Address [address] [place] [address] 7[address] [place] [address] Care Team Providers Care Emr Specialist Name Role Phone Daija Parry DO Primary Care Provider [phone] Lopez Marroquin PharmD Unavailable Unavail able Ely Darling PharmD Unavailable Reason for Visit * Reason Onset Date Comments Appointment Request 06/27/2022 Encounter Details Date Type Department Care Team (Late st Contact Info) Description 06/27/2022 Telephone [facility] [address] [place] [address] Daija Parry DO [address] [place] [address] Appointment Request Social History Tobacco Use Types [...] r/s appt for 06/27/2022 Office visit extended. Chinese Language Professor tried booking but noavailable spaces. Please contact pt at [phone] documented in this encounter Plan of Treatment Upcoming Encounters Date Type Department Care Team (Late st Contact Info) Description 03/31/2025 9:45 AM EST Office Visit [facility] [address] [place] [address] 07/08/2025 2:30 PM EDT Office Visit [facility] [address] [place] [address] Tyler Farrn, OD [address] [place] [address] 09/11/2025 3:00 PM EDT Office Visit [facility] [address] [place] [address] Yordan, Arielle, OD [address] [place] [address] documented as of this encounter Goals Goal Patient Goal Type Associated Problems Recent Progress Patient-Stated? Author Blood Pressure < 140/90 Blood Pressure 138/100(01/27 12:35 PM EDT) No Dellogono, Lopez, PharmD Hemoglobin A1c < 7 Result Component 6.3( 10:13 AM EDT) No DellogLopez urena, PharmD documented as of this encounter Visit Diagnoses Not on filedocumented in this encounter Additional Health Concerns Assessment Noted Time PHQ-9 Depression Total Score: 24 023 11:12 AM EST documented as of this encounter Care Teams Emr Specialist Relationship Specialty Start Date End Date Brinda DaijaDO [address] [place] [address] PCP - General Family Medicine 12/22/14 Lopez Marroquin, AugustoD [address] [place] [address] Pharmacist Internal Medicine 06/25/22 11/22/22 Ely Darling PharmD [address] [place] [address] Pharmacist Internal Medicine 11/22/22 documented as of this encounter
--- OUTSIDE RECORDS SUMMARY | 2025-03-27 16:28 | XMS_ITS | Encounter Summary ---
Author Organization [employer] Address [address] [place] [address] 7[address] [place] [address] Care Team Providers Care Rigging Slinger Name Role Phone Daija Parry DO Primary Care Provider [phone] Lopez Marroquin PharmD Unavailable Unavail able Ely Darling PharmD Unavailable Reason for Visit * Reason Onset Date Comments Durable Medical Equipment 05/10/2022 Encounter Details Date Type Department Care Team (Late st Contact Info) Description 05/10/2022 Telephone [facility] [address] [place] [address] Daija Parry DO [address] [place], [place] [phone] Durable Medical Equipment Social History Tobacco Use [...] non fragrance wipes Please contact valentin at [phone] documented in this encounter Plan of Treatment Upcoming Encounters Date Type Department Care Team (Late st Contact Info) Description 03/31/2025 9:45 AM EST Office Visit [facility] [address] [place] [address] 07/08/2025 2:30 PM EDT Office Visit [facility] [address] [place] [address] Yordan Arielle, OD [address] [place] [address] 09/11/2025 3:00 PM EDT Office Visit [facility] [address] [place] [address] Yordan, Arielle, OD [address] [place] [address] documented as of this encounter Visit Diagnoses Not on filedocumented in this encounter Additional Health Concerns Assessment Noted Time PHQ-9 Depression Total Score: 24 022 10:57 AM EST documented as of this encounter Care Teams Rigging Slinger Relationship Specialty Start Date End Date Daija Parry DO [address] [place] [phone] PCP - General Family Medicine 12/22/14 Lopez Marroquin, AugustoD [address] [place] [phone] Pharmacist Internal Medicine 06/25/22 11/22/22 Ely Darling PharmD [address] [place] [phone] Pharmacist Internal Medicine 11/22/22 documented as of this encounter
--- OUTSIDE RECORDS SUMMARY | 2025-03-27 16:29 | XMS_ITS | Encounter Summary ---
Author Organization [employer] Address [address] [place] [address] 7t [place] [address] Care Team Providers Care Senior Nuclear Medicine Technologist Name Role Phone Daija Parry DO Primary Care Provider Lopez Marroquin PharmD Unavailable Unavail able Ely Darling PharmD Unavailable [phone] Encounter Details Date Type Department Care Team ([facility] Contact Info) Description 03/13/2022 Orders Only [facility] [address] [place] [phone] Daija Parry DO [address] [place] [phone] Social History Tobacco Use Types Packs/Day Years [...] Upcoming Encounters Date Type Department Care Team ([facility] Contact Info) Description 03/31/2025 9:45 AM EST Office Visit [facility] [address] [place] [phone] 07/08/2025 2:30 PM EDT Office Visit [facility] [address] [place] [address] Arielle Farr, OD [address] [place] [address] 09/11/2025 3:00 PM EDT Office Visit [facility] [address] [place] [address] Arielle Farr, OD [address] [place] [address] documented as of this encounter Procedures Procedure [...] 10:15 AM EDT) Creatinine, Urine 326.51 mg/dL [facility] Microalbumin Urine 24.0 mg/L [facility] Microalbum Creatinine Ratio Ur 7.3 <30 ug/mg cr [facility] Comment:Albumin/Creatinine R atio Reference Ranges: Normal: < 30 ug/mg creatinine Microalbuminuria: 30 - 300 ug/mg creatinineClinical Albuminuria: > 300 ug/mg creatinine 01/02/2023 10:1 5 AM EDT 01/02/2023 11:37 AM EDT Daija Parry DO LAB URINE ORDERABLES Final R esult Performing Organization Address [facility] de Phone Number [facility] [address] [place] [phone] * (ABNORMAL) TSH (06/29/2022 3:06 PM EDT) Pathologist [facility] Thyroid Stimulating Hormone 8.15(H) 0.32 - 4.0 uIU/mL [facility] Comment:Note: A sustained TS H level above 2.5 uIU/mL may warrant further investigation. TSH 3rd Generation ([facility]) 06/29/2022 3:06 PM EDT 06/29/2022 3:06 PM EDT [facility] External Provider LAB BLO OD ORDERABLES Final Result Performing Organization Address [facility] de Phone Number [facility] [address] [place] [phone] * T4, Free (06/29/2022 3:06 PM EDT) Pathologist [facility] Free T4 (Free Thyroxine) 0.77 0.71 - 1.85 ng/dL [facility] 06/29/2022 3:06 PM EDT 06/29/2022 3:06 PM EDT [facility] External Provider LAB BLO OD ORDERABLES Final Result Performing Organization Address [facility] Co de Phone Number [facility] [address] [place] [phone] * (ABNORMAL) Basic Metabolic Panel (06/29/2022 3:06 PM EDT) Pathologist [facility] Sodium 138 135 - 145 mmol/L [facility] Potassium 4.3 3.3 - 5.1 mmol/L [facility] Comment:Slight Hemolysis Chloride 104 96 - 108 mmol/L [facility] Carbon Dioxide 27 22 - 29 mmol/L [facility] Anion Gap 11(L) 12 - 20 [facility] Urea Nitrogen (BUN) 13 9 - 16 mg/dL [facility] Creatinine, Serum 0.71 0.5 - 1.4 mg/dL [facility] Estimated Glomerular Filt Rate >60 [facility] Comment:NOTE: For -Am erican individuals, multiply the result by 1.210.Chronic Kidney Disease: Estimated GFR < 60 mL/min/1.90h0Ljuevs Kidney Disease: Estimated GFR < 15 mL/min/1.73m2 Glucose 113 60 - 115 mg/dL [facility] Calcium 9.2 8.4 - 10.2 mg/dL [facility] 06/29/2022 3:06 PM EDT 06/29/2022 3:06 PM EDT [facility] External Provider LAB BLO OD ORDERABLES Final Result Performing Organization Address City/State/[facility] Co de Phone Number [facility] [address] [place] [phone] * Hemoglobin A1c (06/29/2022 3:06 PM EDT) Hemoglobin A1c 6.7 % [facility] Comment:Hemoglobin A1C Refer ence Range Adults: 4.8 - 6.0 % Non diabetic: < 6.0 % Goal: < 7.0 %Additional Action Suggested: > 8.0 %Note: Hemoglobin A1c results are invalid for patients with abnormal amounts of HbF. Blood transfusions may impact the HbA1c concentration in the patient sample. Estimated Average Glucose 146 mg/dL [facility] Comment:eAG = Estimated ave rage glucose which is %A1C expressed asaverage glucose, using the formula of the [id number] Glucose study (ADAG), Diabetes Care, Vol.31,#8,Nov. 2007 06/29/2022 3:06 PM EDT 06/29/2022 3:06 PM EDT [facility] External Provider LAB BLO OD ORDERABLES Final Result [facility] [address] [place], [place] [phone] * (ABNORMAL) CBC auto differential (06/29/2022 3:06 PM EDT) White Blood Count 9.9 4.8 - 10.8 X10*3/uL [facility] Red Blood Count 4.49 4.20 - 5.50 X10*6/uL [facility] Hemoglobin 13.8 12.0 - 16.0 g/dl [facility] Hematocrit 40.2 37.0 - 47.0 % [facility] Mean Corpuscular Volume 89.5 80.0 - 98.0 fL [facility] Mean Corpuscular Hemoglobin 30.7 27.0 - 33.0 pg [facility] Mean Corpuscular HGB Conc 34.3 31.0 - 35.0 g/dl [facility] Red Cell Distribution Width 13.2 11.0 - 16.0 % [facility] Platelet Count 277 160 - 400 X10*3/uL [facility] Mean Platelet Volume 9.3(L) 9.4 - 12.3 fL [facility] Neutrophils Percent Auto 74.2(H) 45 - 73 % [facility] Imm Gran Pct Auto 0.4 0.0 - 0.4 % [facility] Lymphocytes Percent Auto 17.4(L) 20 - 40 % [facility] Monocytes Percent Auto 7.1 2 - 11 % [facility] Eosinophils Percent Auto 0.6 0 - 4 % [facility] Basophils Percent Auto 0.3 0 - 2 % [facility] NRBC Pct Auto 0.0 0.0 - 0.2 /100WBC [facility] Neutrophils Absolute Auto 7.4 2.0 - 8.3 x10*3/uL [facility] Imm Gran Abs Auto 0.04(H) 0.00 - 0.03 X10*3/uL [facility] Lymphocytes Absolute Auto 1.7 1.2 - 4.9 X10*3/uL [facility] Monocytes Absolute Auto 0.7 0.1 - 1.2 X10*3/uL [facility] Eosinophils Absolute Auto 0.1 0.0 - 0.4 X10*3/uL [facility] Basophils Absolute Auto 0.0 0.0 - 0.2 X10*3/uL [facility] NRBC Abs Auto 0.000 0.0 - 0.012 X10*3/uL [facility] 06/29/2022 3:06 PM EDT 06/29/2022 3:06 PM EDT us [facility] External Provider LAB BLO OD ORDERABLES Final Result [facility] [address] [place] [address] [phone] documented in this encounter Visit Diagnoses Not on filedocumented in this encounter Additional Health Concerns Assessment Noted Time PHQ-9 Depression Total Score: 24 022 10:57 AM EST documented as of this encounter Care Teams Senior Nuclear Medicine Technologist Relationship Specialty Start Date End Date Daija Parry DO [address] [place] [address] PCP - General Family Medicine 12/22/14 Lopez Marroquin, PharmD [address] [place] [address] Pharmacist Internal Medicine 06/25/22 11/22/22 Ely Darling PharmD [address] [place] [address] Pharmacist Internal Medicine 11/22/22 documented as of this encounter
--- OUTSIDE RECORDS SUMMARY | 2025-03-27 16:29 | XMS_ITS | Encounter Summary ---
Author Organization [employer] Address [address] [place] [address] [address] [place] [address] Care Team Providers Care Gl Accountant Name Role Phone Daija Parry DO Primary Care Provider Ely Darling PharmD Unavailable Encounter Details Date Type Department Care Team ([facility] st Contact Info) Description 07/19/[address] [facility] [address] [place] [address] ProviderAnnel MD Social History Tobacco Use Types [...] Office Visit [facility] [address] [place] [address] 07/08/2025 2:30 PM EDT Office Visit [facility] [address] [place] [address] Tyler Farrn, OD [address] [place] [address] 09/11/2025 3:00 PM EDT Office Visit [facility] [address] [place] [address] Tyler Farrn, OD [address] [place] [address] documented as of this encounter Goals Goal [...] Historical Provider MD HEALTH MAINTENANCE Final Result documented in this encounter Visit Diagnoses Not on filedocumented in this encounter Additional Health Concerns Assessment Noted Time PHQ-9 Depression Total Score: 25 024 12:17 PM EDT documented as of this encounter Care Teams Gl Accountant Relationship Specialty Start Date End Date Daija Parry DO [address] [place] [address] PCP - General Family Medicine 12/22/14 Ely Darling PharmD [address] [place] [address] Pharmacist Internal Medicine 11/22/22 documented as of this encounter
--- OUTSIDE RECORDS SUMMARY | 2025-03-27 16:29 | XMS_ITS | Clinical Summary ---
Author Organization [facility] Address [address] [place] [phone] Phone Care Team Providers Care Water Taxi Operator Name Role Phone Daija Parry DO [...] Do not crush or chew. 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
== END 2025-03-27 16:06 | disposition home or self-care (01) ==
LOC: HO.HUSH 15:19
PROVIDERS: PCP Family Medicine; Visit Provider Urology
DX: N30.10 Interstitial cystitis (chronic) without hematuria (principal); N32.81 Overactive bladder; R35.1 Nocturia
CPT/HCPCS: 99213